=== PATIENT | female | born 1945 | race African-American/Black ===

== ENCOUNTER 2017-05-19 08:17 | Day surgery (SDC) | payer MEDICARE, SELFPAY ==
--- NOTE | 2017-05-10 16:05 | EKG12_ITS ---
Test Reason : PRE OP Blood Pressure : / mmHG Vent. Rate : 064 BPM Atrial Rate : 064 BPM P-R Int : 154 ms QRS Dur : 068 ms QT Int : 418 ms P-R-T Axes : 030 015 043 degrees QTc Int : 431 ms Normal sinus rhythm Poor R wave progression Confirmed by OLGA LANDRY, PENELOPE ([id number]), book or script editor CHAKA LYNN ([id number]) on 05/12/2017 1:09:05 PM Referred By: Gina Rae Confirmed By:PENELOPE ESPINOZA MD
[2017-05-10 16:51] LABS: Hematocrit 41.1 % (37-47); Hemoglobin 13.5 g/dl (12.0-15.0); Mean Corp Hgb Conc 32.8 g/gl (32-36); Mean Corpuscular Hgb 29.2 pg (27.0-32.0); Mean Corpuscular Volume 88.8 fL (81-99); Mean Platelet Vol. 9.9 fl (6.2-12.0); Platelet Count 262 K/mm3 (150-450); RBC Distribution Width CV 12.3 % (11.6-14.6); RBC Distribution Width SD 38.5 fl (35.1-43.9); Red Blood Count 4.63 M/mm3 (4.2-5.4); White Blood Count 5.5 K/mm3 (4.4-11.0)
[2017-05-10 16:55] LABS: Partial Thromboplast Time 30.9 Seconds (24.1-36.2); Prothrombin Time (Protime)PT. 12.9 SECONDS (11.7-14.9)
[2017-05-10 16:56] LABS: Scan Indicated on CBC? Y/N NO
[2017-05-10 17:23] LABS: Anion Gap 9 (5-15); BUN 15 mg/dL (7-18); BUN/Creat Ratio 18.9 RATIO (10-20); Calcium,Total 9.6 mg/dL (8.5-10.1); Chloride 103 mmol/L (98-107); EST Glomerular Filtration Rate 75 mL/min (>60); Est Glom Filt Rate - Afr Amer 91 mL/min (>60); Glucose 88 mg/dL (70-110); Potassium 4.2 mmol/L (3.5-5.1); Sodium Level 138 mmol/L (136-145)
[2017-05-10 17:41] LABS: Hemoglobin A1c 6.3 % (4.2-6.3)
[2017-05-12 15:26] LABS: HIV 1/0/2 SCREEN 4TH GEN Non Reactive (Non Reactive)
[2017-05-19] VITALS (13 sets, daily range): BP systolic 132–172; BP diastolic 59–81; PULSE 50–81; RESP 16–18; TEMP 36.4–37.1; O2SAT 95–100; BMI 26.2
--- NOTE | 2017-05-19 10:05 | MASS_PTH ---
PATIENT: AKILA DE LOS SANTOS LOC: [facility] U#:[id number] AGE/SX: 72/F ROOM: RE05/19/[address]: Dr. Gina Duff MD : 1945 BED: DIS: 05/20/2017 SPEC #: [id number] RECD: 05/20/17 10:35 STATUS: BRANDYN STACIE #: [id number] MEGHAN: 05/19/17 10:[address]: Gina Garcia DEPT: SURGICAL PATHOLOGY RECD BY: Trae Swann ENTERED: 05/20/17 12:55 SP TYPE: Mass OTHR DR: Dr. Ashely Grace, DO Tissues: A - Right ovary B - Left ovary Procedures: Surgery Specimen Level IV Surgery Specimen Level V HEADER OPERATION: Laparoscopic, bilateral salpingo-oophorectomy PRE-OP DIAGNOSIS: Lower abdominal pain, right ovarian cyst TISSUE SUBMITTED: A ? Right adnexal mass and ovary, B ? Left tube and ovary MICROSCOPIC DIAGNOSIS A. Right ovary and adnexal mass, oophorectomy: Serous cystadenoma. B. Left ovary and fallopian tube, salpingo-oophorectomy: Corpora albicantia. Fallopian tube with no significant pathologic change. AM:constantine 05/23/17 MICROSCOPIC DESCRIPTION Slides are reviewed. GROSS DESCRIPTION A - Received in fixative is one container labeled with the patient's name and designated right adnexal mass and ovary. The specimen consists of a single, glistening piper ovary measuring 3.5 x 2.5 x 1.3 cm. Attached to this is an irregular fragment of possible cystic structure measuring 4 x 2 cm. No distinct fallopian tube is identified. Tube Trailer Filler sections are submitted in four cassettes. B - Received in fixative is one container labeled with the patient's name and designated left ovary. The specimen consists of a piper-white ovary measuring 5 x 2 x 1 cm. Adjacent to this is a fallopian tube with normal appearing fimbriated end measuring 6 cm in length and 0.7 cm in average diameter. Serial sections of the ovary do not reveal mass lesions. Serial sections of the fallopian tube likewise does not reveal mass lesions. Tube Trailer Filler sections are submitted in two cassettes as follows: 1 ? ovary, 2???fallopian tube. / AM:constantine 05/20/17 TC:1 CPT: 66873, 10718
[2017-05-19] MEDS: Bupivacaine Mpf 0.5% 30 ML VIAL (13:19)
--- NOTE | 2017-05-19 13:27 | PCM.OPRPT ---
Problem List (1) Abdominal pain Status: Acute Qualifiers: Abdominal location: lower abdomen, unspecified Qualified Code(s): R10.30 - Lower abdominal pain, unspecified (2) Adnexal mass Status: Acute Comment: Right Report of Operation Date of Procedure: 05/19/17 Pre-Operative Diagnosis: Abdominal pain, right adnexal cyst Post-Operative Diagnosis: Abdominal pain, right adnexal cyst Surgery/Procedure Performed:: Laparoscopic adhesiolysis, bilateral salpingo-oophorectomy Description of Surgical Findings:: Dense adhesions of bilateral ovaries and right cystic mass presumably the tube silviculture professor: Isa Higuera Type of Anesthesia:: General, Local Anesthesiologist: Wandy Bridges Specimen's removed: 1. Left tube and ovary line 2. right adnexal mass and ovary Estimated Blood Loss (mL): 80 Fluids Replaced: 1500 mL Description of Procedure: Indications: Ms. Villafana is a 72-year-old postmenopausal para 3003 with history of abdominal pain found to have a complex right adnexal mass measuring 3-4 cm. Tumor marker study suggested low risk for malignancy. She was counseled regarding management options and agreed to proceed with laparoscopic bilateral salpingo-oophorectomy with removal of the mass. Risks, benefits, indications and alternatives were reviewed at length. Procedure: The patient was taken to the operating room and placed in the dorsal supine position and signed and performed. She was induced under general anesthesia, intubated. She was placed into dorsal lithotomy and the arms tucked at her sides. An examination under anesthesia was performed. Notably she is post hysterectomy. The perineum and abdomen were prepped and draped in sterile fashion. She is placed into high lithotomy and Mao catheter placed into the bladder. A sponge stick was placed into the vagina. She was repositioned low lithotomy. Attention was turned to the abdomen. An infraumbilical incision was made using a scalpel and Veress needle placed with successful hanging drop test and no aspirate. Abdominal entry pressure was 1 mmHg. The abdomen was insufflated to 15 mmHg. The needle was removed and a 5 mm port placed for laparoscopic guidance.. 3 additional incisions were made in the right and left lower quadrants as well as suprapubically and port placement followed. She was placed into Trendelenburg and the pelvis was inspected. It appeared that the bilateral ovaries were deeply so into the vaginal cuff and there was a 4 cm cystic mass at the midline suspicious for the right tube being hydrosalpinx. I created a bladder flap with dissection of the anterior peritoneum to release it from the vaginal cuff. Then I dissected of the cystic mass from the vaginal cuff bluntly and sharply with careful attention to prevent rupture. The mass was adhered densely to the right ovary. At this time I decided to ligate the right infundibulopelvic ligament to gain hemostasis with continued dissection. The right IP ligament was clamped coagulated and cut using the Enseal device. And with further careful dissection right salpingo-oophorectomy was performed. This required extensive period of time to complete the procedure safely. Attention was then turned to the left adnexa. Tube was normal-appearing. The left ovary was dissected bluntly and sharply from the cuff in part and when this was mobilized anteriorly I returned to the infundibulopelvic ligament at the left there was posterior ovarian adhesions to the cul-de-sac. The left infundibulopelvic ligament was serially clamped, coagulated, and cut using the Enseal device. This continued to the level of the mesovarium and the ovary was further dissected from the peritoneum of the posterior cul-de-sac. The suprapubic port was removed and the Endo Catch bag introduced into the abdomen. The right and left tubes and ovaries were placed into the Endo Catch bag and retrieved. Сергей was applied over the surgical sites for continued hemostasis. Abdomen was desufflated and the patient was given several deep breaths for further expulsion of gas. This fascia of the suprapubic incision was closed using 3-0 Vicryl. The skin at all sites approximately using 4-0 Monocryl by the DIRECTOR OF COMMUNITY EDUCATION or my supervision. Steri-Strips are placed over the incisions and followed by OpSite dressings. The sponge stick and catheter were removed from the vagina and bladder, respectively. The patient was placed into dorsal supine position, awakened, extubated and transferred to the recovery room without complication. She tolerated the procedure well. Sponge and needle counts were correct ?2. - Complications Dense adhesions - Admit VTE Documentation VTE Present on Admission: No VTE Mechan Device Prophylaxis: SCD's VTE Pharm Prophylaxis ordered?: No
--- NOTE | 2017-05-19 13:49 | PCM.DC ---
- Discharge Diagnoses Current Active Problems: Current Active and Chronic Problems Abdominal pain (Acute) Adnexal mass (Acute) Right You will use the following diet at home:: No restrictions Discharge Activity: Return to Normal Activity, May not drive while taking narcotic pain medications., May Shower May resume sexual activity in: 4 weeks Lifting Restrictions: 10 lb Call your doctor if your incision/area has: Continuous Slow Oozing, Sudden Increased Bleeding, Increased Pain/ Swelling, Increased Redness Call your doctor if you observe: Fever of 101 or Higher, Inability to urinate, Inability to have a bowel movement, Using more than one pad per hour, Shortness of breath, Chest pain, Calf discomfort, Uncontrolled pain Suture Line Care: Avoid Pulling/Pushing Remove Dressing in (days):: 1 Cleanse incision/area with: Soap & Water Instructions: ED Angioedema Additional Instructions: Take Prednisone taper. The Prescription was sent to [facility]. Please call the office with any questions. Allergies/Adverse Reactions: Allergies aspirin Allergy (Verified 05/16/17 14:52) Shortness of breath latex Allergy (Verified 05/16/17 14:52) Rash Penicillins Allergy (Verified 05/16/17 14:52) Rash Sulfa (Sulfonamide Antibiotics) Allergy (Verified 05/16/17 14:52) Hives Medications to take at Discharge Amlodipine Besylate [Norvasc] 5 mg PO DAILY 11/01/16 Ascorbic Acid [Vitamin C] 500 mg PO DAILY@0800 11/01/16 Calcium Phosphate Trib/Vit D3 [Citracal + D3 Gummies] 1 each PO BID 11/01/16 Estradiol [Estrace] 1 mg PO DAILY 11/01/16 Fish Oil/Dha/Epa [Fish Oil 1,200 mg Fish Oil] 2 each PO BID 11/01/16 Fluticasone/Vilanterol [Breo Ellipta 200-25 Mcg INH] 1 each IH DAILY 11/01/16 Gabapentin [Neurontin] 200 mg PO BID 11/01/16 Indapamide 1.25 mg PO DAILY 11/01/16 Lisinopril [Zestril] 20 mg PO DAILY 11/01/16 Montelukast [Singulair] 10 mg PO QHS 11/01/16 Multivit-Min/Iron/Folic/Lutein [Centrum Silver Women Tablet] 1 each PO DAILY 11/01/16 Potassium Chloride [K-Dur] 40 meq PO BID 11/01/16 Albuterol Inhaler [Ventolin Hfa] 1 - 2 puff INHALATION Q4H PRN PRN 05/16/17 Diclofenac Sodium [Voltaren] 100 gm TP PRN PRN 05/16/17 Gabapentin [Neurontin] 400 mg PO QHS 05/16/17 Docusate Sodium [Colace] 100 mg PO BID PRN PRN #60 cap 05/19/17 Hydrocodone/Acetaminophen [Hydrocodon-Acetaminophen 5-325] 1 - 2 tab PO TID PRN #30 tab 05/19/17 The following prescriptions were given: Docusate Sodium [Colace] 100 mg PO BID PRN PRN #60 cap PRN Reason: Constipation Hydrocodone/Acetaminophen [Hydrocodon-Acetaminophen 5-325] 1 - 2 tab PO TID PRN #30 tab PRN Reason: Pain Primary Care Physician: Ashely Grace DO [Primary Care Provider] - Please Follow Up With: Gina Rae MD When: 1 week
[2017-05-19] MEDS: HYDROcodone Bitartrate/Apap 5/325 Tablet PO ×2 (15:36→22:24)
--- NOTE | 2017-05-19 18:32 | PCM.PN.BLA ---
Progress Note PROGRESS NOTE Informed by RN that patient with small lip swelling at approximately 3:45pm. On my return to evaluate the patient at approximately 1745h I was notified the lip swelling had gotten worse. At the bedside patient has large swelling of her lower lip without any tongue or uvular swelling. + BS, soft, nontender, + distended belly with tympany. Incisional dressings c/d/i. No rash or urticaria present. AVSS, findings c/w angioedema without anaphylaxis and possible bowel wall involvement. Discussed my concerns with patient and relative. Patient denies dyspnea, foreign body sensation or lump in throat, ear congestion, pruritis, cough, sneezing. Etiology unclear. Allergies reviewed and no exposure to known allergens, Сергей placed intra-abdominally also latex free. Will admit for observation overnight. Benadryl atc and Prednisone ordered.
--- NOTE | 2017-05-19 19:16 | NURSING ---
Lower lip every large, denies sob, abd is large but soft.
[2017-05-19] MEDS: DiphenhydrAMINE 50 MG/ML Syringe 25 MG IV (20:36)
[2017-05-19] MEDS: Gabapentin 400 MG Capsule PO (22:00)
[2017-05-19] MEDS: Montelukast 10 MG Tablet PO (22:24)
[2017-05-20] MEDS: Dextrose 5%-Lactated Ringers 1,000 ML 100 ML IV (00:24)
[2017-05-20] MEDS: DiphenhydrAMINE 50 MG/ML Syringe 25 MG IV ×3 (02:59→11:42)
[2017-05-20 03:02] VITALS: BP 123/62; PULSE 65; RESP 16; TEMP 37.4; O2SAT 96
[2017-05-20] MEDS: HYDROcodone Bitartrate/Apap 5/325 Tablet PO (06:52)
[2017-05-20 06:59] LABS: Hematocrit 35.5 % (37-47); Hemoglobin 11.5 g/dl (12.0-15.0); Mean Corp Hgb Conc 32.4 g/gl (32-36); Mean Corpuscular Hgb 29.3 pg (27.0-32.0); Mean Corpuscular Volume 90.3 fL (81-99); Mean Platelet Vol. 10.5 fl (6.2-12.0); Platelet Count 177 K/mm3 (150-450); RBC Distribution Width CV 12.9 % (11.6-14.6); RBC Distribution Width SD 42.6 fl (35.1-43.9); Red Blood Count 3.93 M/mm3 (4.2-5.4); White Blood Count 8.2 K/mm3 (4.4-11.0)
[2017-05-20 07:10] LABS: Scan Indicated on CBC? Y/N NO
[2017-05-20 07:35] VITALS: BP 121/55; PULSE 61; RESP 14; TEMP 36.5; O2SAT 98
[2017-05-20 07:48] VITALS: O2SAT 97
[2017-05-20] MEDS: Indapamide 2.5 MG Tablet 1.25 MG PO (07:54)
[2017-05-20] MEDS: Gabapentin 100 MG Capsule 200 MG PO (07:54)
[2017-05-20] MEDS: Lisinopril 20 MG Tablet PO (07:54)
[2017-05-20] MEDS: amLODIPine 5 MG Tablet PO (07:54)
--- NOTE | 2017-05-20 08:35 | PCM.PN.OB ---
Patient Problems: Active and Suspected Problems Abdominal pain (Acute) Adnexal mass (Acute) Right Subjective: Relates cinthia-labial edema is improved. Denies chest pain, shortness of breath, cough, sore throat. Her pain is well controlled except worsened with movement. She denies nausea or vomiting and tolerates a regular diet. No flatus yet. Objective: AVSS - Physical Exam General: Alert, Oriented x3, Cooperative, No apparent distress HEENT: Atraumatic, - - significant lower lip edema improved from prior Oral: Moist Mucosa Lungs: Clear to auscultation, Normal air movement Cardiovascular: Regular rate, Regular Rhythm, Normal S1, Normal S2 Abdomen: Bowel Sounds Present, Soft, Non Tender, Distended Extremities: No edema, No Calf Tenderness Neurological: Neuro grossly intact Psych/Mental Status: Normal Affect, Appropriate, Alert and oriented to time, place, person, mood and affect Vital Signs Temp Pulse Resp BP Pulse Ox 97.7 F L 61 14 121/55 H 97 05/20/17 07:35 05/20/17 07:35 05/20/17 07:35 05/20/17 07:35 05/20/17 07:48 Oxygen Flow Rate 2 Oxygen Delivery Method Room Air Weight: 62.8 kg Body Mass Index (BMI) 26.2 Intake and Output for Last 24 Hours 05/18/17 05/19/17 05/20/17 23:59 23:59 23:59 Intake Total 4700 / 4700 1630 / 1630 Output Total 200 / 200 850 / 850 Balance 4500 / 4500 780 / 780 Laboratory Tests Past 24 Hrs 05/20/17 06:26 WBC 8.2 RBC 3.93 L Hgb 11.5 L Hct 35.5 L MCV 90.3 MCH 29.3 MCHC 32.4 RDW 12.9 RDW Differential 42.6 Plt Count 177 MPV 10.5 Assessment/Plan Active and Suspected Problems Abdominal pain (Acute) Adnexal mass (Acute) Right 72-year-old postop day 1 status post laparoscopic bilateral salpingo-oophorectomy with angioedema. -Orolabial angioedema overall improved. Continue steroids with taper. Will DC [id number] Benadryl. Abdominal exam suspicious for bowel wall component. Will obtain abdominal film prior to anticipated discharge to rule out other process. -Routine postop care -Anticipate discharge later today
--- NOTE | 2017-05-20 08:39 | PN.OBGYN_ITS ---
Patient Problems: Active and Suspected Problems Abdominal pain (Acute) Adnexal mass (Acute) Right Subjective: Relates cinthia-labial edema is improved. Denies chest pain, shortness of breath, cough, sore throat. Her pain is well controlled except worsened with movement. She denies nausea or vomiting and tolerates a regular diet. No flatus yet. Objective: AVSS - Physical Exam General: Alert, Oriented x3, Cooperative, No apparent distress HEENT: Atraumatic, - - significant lower lip edema improved from prior Oral: Moist Mucosa Lungs: Clear to auscultation, Normal air movement Cardiovascular: Regular rate, Regular Rhythm, Normal S1, Normal S2 Abdomen: Bowel Sounds Present, Soft, Non Tender, Distended Extremities: No edema, No Calf Tenderness Neurological: Neuro grossly intact Psych/Mental Status: Normal Affect, Appropriate, Alert and oriented to time, place, person, mood and affect Vital Signs Temp Pulse Resp BP Pulse Ox 97.7 F L 61 14 121/55 H 97 05/20/17 07:35 05/20/17 07:35 05/20/17 07:35 05/20/17 07:35 05/20/17 07:48 Oxygen Flow Rate 2 Oxygen Delivery Method Room Air Weight: 62.8 kg Body Mass Index (BMI) 26.2 Intake and Output for Last 24 Hours 05/18/17 05/19/17 05/20/17 23:59 23:59 23:59 Intake Total 4700 / 4700 1630 / 1630 Output Total 200 / 200 850 / 850 Balance 4500 / 4500 780 / 780 Laboratory Tests Past 24 Hrs 05/20/17 06:26 WBC 8.2 RBC 3.93 L Hgb 11.5 L Hct 35.5 L MCV 90.3 MCH 29.3 MCHC 32.4 RDW 12.9 RDW Differential 42.6 Plt Count 177 MPV 10.5 Assessment/Plan Active and Suspected Problems Abdominal pain (Acute) Adnexal mass (Acute) Right 72-year-old postop day 1 status post laparoscopic bilateral salpingo- oophorectomy with angioedema. -Orolabial angioedema overall improved. Continue steroids with taper. Will DC [id number] Benadryl. Abdominal exam suspicious for bowel wall component. Will obtain abdominal film prior to anticipated discharge to rule out other process. -Routine postop care -Anticipate discharge later today
--- NOTE | 2017-05-20 08:39 | RAD_ITS ---
STUDY: X-RAY - ABDOMEN/PELVIS REASON FOR EXAM: Female, 72 years old. Abdominal distention following recent surgery. TECHNIQUE: AP supine and upright views of the abdomen and pelvis. COMPARISON: None. FINDINGS: Mild increased linear markings at the lung bases worse on the left side suggestive of a postoperative linear atelectasis. Gas and fecal material is seen throughout the colon. There is no evidence of bowel obstruction. There is no demonstrated free abdominal air. The visualized liver, spleen and kidneys are grossly normal in size and morphology. There are calcified phleboliths in the pelvis. Dextroscoliosis of the lumbar spine with multilevel fusion. RAD/Abd Inc Decub and/or Erect IMPRESSION: Gas and fecal material is seen throughout the colon. Mild linear atelectasis at the lung bases. Electronically Signed: Chris Colmenares MD at 10:41 EST Tel [phone], Service support ,
--- NOTE | 2017-05-20 09:39 | CPS ---
patient does not want to try incentive or do breathing treatments
[2017-05-20] MEDS: 0.9% NaCl Peripheral Flush Adult/Peds IV (11:42)
--- NOTE | 2017-05-23 07:53 | PCM.DC.SUM ---
Discharge Date and Diagnosis Date of Admission: 05/19/17 Date of Discharge: 05/20/17 Hospital Course and Treatment Imaging Results: MR#: [id number] Acct: [id number] Name: AKILA DE LOS SANTOS Rep #: [id number] : 1945 F 72 From: Chris Colmenares MD PCP: Ashely Grace DO Status: [facility] Study: Abd Inc Decub and/or Erect Date of Exam: 05/20/17 Exam# [id number] Ordering Dr: Gina Rae MD STUDY: X-RAY - ABDOMEN/PELVIS REASON FOR EXAM: Female, 72 years old. Abdominal distention following recent surgery. TECHNIQUE: AP supine and upright views of the abdomen and pelvis. COMPARISON: None. FINDINGS: Mild increased linear markings at the lung bases worse on the left side suggestive of a postoperative linear atelectasis. Gas and fecal material is seen throughout the colon. There is no evidence of bowel obstruction. There is no demonstrated free abdominal air. The visualized liver, spleen and kidneys are grossly normal in size and morphology. There are calcified phleboliths in the pelvis. Dextroscoliosis of the lumbar spine with multilevel fusion. RAD/Abd Inc Decub and/or Erect IMPRESSION: Gas and fecal material is seen throughout the colon. Mild linear atelectasis at the lung bases. Electronically Signed: Chris Colmenares MD at 10:41 EST Tel [phone], Service support , Operations: - - Laparoscopic bilateral salpingo-oophorectomy Procedures: None Summary of Care Provided: The patient is a 72 year old female admitted for scheduled laparoscopic bilateral salpingo-oophorectomy for a complex right adnexal mass. Shortly following her procedure, she was noted to have lip swelling which progressively worsened and included abdominal distension consistent with angioedema without evidence of anaphylaxis or respiratory compromise. She was admitted and oral prednisone course started. Ms. De Los Santos was observed overnight with improvement of edema and symptoms. She was discharged to home on post-operative day #1. Discharge Diet: No Restrictions Discharge Activity: Return to Normal Activity, May not drive while taking narcotic pain medications., May Shower May resume sexual activity in: 4 weeks Call your doctor if your incision/area has: Continuous Slow Oozing, Sudden Increased Bleeding, Increased Pain/ Swelling, Increased Redness Call your doctor if you observe: Fever of 101 or Higher, Inability to urinate, Inability to have a bowel movement, Using more than one pad per hour, Shortness of breath, Chest pain, Calf discomfort, Uncontrolled pain Suture Line Care: Avoid Pulling/Pushing Remove Dressing in (days):: 1 Cleanse incision/area with: Soap & Water Home Medications: Medications to take at Discharge Amlodipine Besylate [Norvasc] 5 mg PO DAILY 11/01/16 Ascorbic Acid [Vitamin C] 500 mg PO DAILY@0800 11/01/16 Calcium Phosphate Trib/Vit D3 [Citracal + D3 Gummies] 1 each PO BID 11/01/16 Estradiol [Estrace] 1 mg PO DAILY 11/01/16 Fish Oil/Dha/Epa [Fish Oil 1,200 mg Fish Oil] 2 each PO BID 11/01/16 Fluticasone/Vilanterol [Breo Ellipta 200-25 Mcg INH] 1 each IH DAILY 11/01/16 Gabapentin [Neurontin] 200 mg PO BID 11/01/16 Indapamide 1.25 mg PO DAILY 11/01/16 Lisinopril [Zestril] 20 mg PO DAILY 11/01/16 Montelukast [Singulair] 10 mg PO QHS 11/01/16 Multivit-Min/Iron/Folic/Lutein [Centrum Silver Women Tablet] 1 each PO DAILY 11/01/16 Potassium Chloride [K-Dur] 40 meq PO BID 11/01/16 Albuterol Inhaler [Ventolin Hfa] 1 - 2 puff INHALATION Q4H PRN PRN 05/16/17 Diclofenac Sodium [Voltaren] 100 gm TP PRN PRN 05/16/17 Gabapentin [Neurontin] 400 mg PO QHS 05/16/17 Docusate Sodium [Colace] 100 mg PO BID PRN PRN #60 cap 05/19/17 Hydrocodone/Acetaminophen [Hydrocodon-Acetaminophen 5-325] 1 - 2 tab PO TID PRN #30 tab 05/19/17 Following Prescrptions Were Given to Patient: Docusate Sodium [Colace] 100 mg PO BID PRN PRN #60 cap PRN Reason: Constipation Hydrocodone/Acetaminophen [Hydrocodon-Acetaminophen 5-325] 1 - 2 tab PO TID PRN #30 tab PRN Reason: Pain Primary Care Physician: Ashely Grace DO [Primary Care Provider] - Please Follow Up With: Gina Rae MD When: 1 week Patient Instructions: ED Angioedema Meaningful Use Info Meaningful Use Diagnoses (Choose all that apply): None applicable
--- NOTE | 2017-05-23 08:01 | DS.PCM_ITS ---
Discharge Date and Diagnosis Date of Admission: 05/19/17 Date of Discharge: 05/20/17 Hospital Course and Treatment Imaging Results: MR#: [id number] Acct: [id number] Name: AKILA DE LOS SANTOS Rep #: [id number] : 1945 F [id number] From: Chris Colmenares MD PCP: Ashely Grace DO Status: [facility] Study: Abd Inc Decub and/or Erect Date of Exam: 05/20/17 Exam# [id number] Ordering Dr: Gina Rae MD STUDY: X-RAY - ABDOMEN/PELVIS REASON FOR EXAM: Female, 72 years old. Abdominal distention following recent surgery. TECHNIQUE: AP supine and upright views of the abdomen and pelvis. COMPARISON: None. FINDINGS: Mild increased linear markings at the lung bases worse on the left side suggestive of a postoperative linear atelectasis. Gas and fecal material is seen throughout the colon. There is no evidence of bowel obstruction. There is no demonstrated free abdominal air. The visualized liver, spleen and kidneys are grossly normal in size and morphology. There are calcified phleboliths in the pelvis. Dextroscoliosis of the lumbar spine with multilevel fusion. RAD/Abd Inc Decub and/or Erect IMPRESSION: Gas and fecal material is seen throughout the colon. Mild linear atelectasis at the lung bases. Electronically Signed: Chris Colmenares MD at 10:41 EST Tel [phone], Service support , Operations: - - Laparoscopic bilateral salpingo-oophorectomy Procedures: None Summary of Care Provided: The patient is a 72 year old female admitted for scheduled laparoscopic bilateral salpingo-oophorectomy for a complex right adnexal mass. Shortly following her procedure, she was noted to have lip swelling which progressively worsened and included abdominal distension consistent with angioedema without evidence of anaphylaxis or respiratory compromise. She was admitted and oral prednisone course started. Ms. De Los Santos was observed overnight with improvement of edema and symptoms. She was discharged to home on post-operative day #1. Discharge Diet: No Restrictions Discharge Activity: Return to Normal Activity, May not drive while taking narcotic pain medications., May Shower May resume sexual activity in: 4 weeks Call your doctor if your incision/area has: Continuous Slow Oozing, Sudden Increased Bleeding, Increased Pain/ Swelling, Increased Redness Call your doctor if you observe: Fever of 101 or Higher, Inability to urinate, Inability to have a bowel movement, Using more than one pad per hour, Shortness of breath, Chest pain, Calf discomfort, Uncontrolled pain Suture Line Care: Avoid Pulling/Pushing Remove Dressing in (days):: 1 Cleanse incision/area with: Soap & Water Home Medications: Medications to take at Discharge Amlodipine Besylate [Norvasc] 5 mg PO DAILY 11/01/16 Ascorbic Acid [Vitamin C] 500 mg PO DAILY@0800 11/01/16 Calcium Phosphate Trib/Vit D3 [Citracal + D3 Gummies] 1 each PO BID 11/01/16 Estradiol [Estrace] 1 mg PO DAILY 11/01/16 Fish Oil/Dha/Epa [Fish Oil 1,200 mg Fish Oil] 2 each PO BID 11/01/16 Fluticasone/Vilanterol [Breo Ellipta 200-25 Mcg INH] 1 each IH DAILY 11/01/16 Gabapentin [Neurontin] 200 mg PO BID 11/01/16 Indapamide 1.25 mg PO DAILY 11/01/16 Lisinopril [Zestril] 20 mg PO DAILY 11/01/16 Montelukast [Singulair] 10 mg PO QHS 11/01/16 Multivit-Min/Iron/Folic/Lutein [Centrum Silver Women Tablet] 1 each PO DAILY 02/08 Potassium Chloride [K-Dur] 40 meq PO BID 11/01/16 Albuterol Inhaler [Ventolin Hfa] 1 - 2 puff INHALATION Q4H PRN PRN 05/16/17 Diclofenac Sodium [Voltaren] 100 gm TP PRN PRN 05/16/17 Gabapentin [Neurontin] 400 mg PO QHS 05/16/17 Docusate Sodium [Colace] 100 mg PO BID PRN PRN #60 cap 05/19/17 Hydrocodone/Acetaminophen [Hydrocodon-Acetaminophen 5-325] 1 - 2 tab PO TID PRN #30 tab 05/19/17 Following Prescrptions Were Given to Patient: Docusate Sodium [Colace] 100 mg PO BID PRN PRN #60 cap PRN Reason: Constipation Hydrocodone/Acetaminophen [Hydrocodon-Acetaminophen 5-325] 1 - 2 tab PO TID PRN #30 tab PRN Reason: Pain Primary Care Physician: Ashely Grace DO [Primary Care Provider] - Please Follow Up With: Gina Rae MD When: 1 week Patient Instructions: ED Angioedema Meaningful Use Info Meaningful Use Diagnoses (Choose all that apply): None applicable
--- NOTE | 2017-06-02 09:11 | PCM.PN.BLA ---
Progress Note Call to Dr. 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 Grossly, the cyst was adjacent to the distal tube with no connection to the ovary. I reviewed with her that no ovarian procedure was performed and no ovarian tissue resected. She notes that serous cystadenoma may arise in the tube however ovarian tissue was present on this pathologic specimen.
== END 2017-05-20 12:36 | disposition home or self-care (01) ==
LOC: SDC 08:17 → AC 08:18 → MS3 18:39
PROVIDERS: Family Provider Family Medicine; PCP Family Medicine; Visit Provider Obstetrics & Gynecology
PROC: (CPT 58660; principal; 2017-05-19 09:50)
DX: D35.01 Benign neoplasm of right adrenal gland (principal); N83.12 Corpus luteum cyst of left ovary; N73.6 Female pelvic peritoneal adhesions (postinfective); T78.3XXA Angioneurotic edema, initial encounter; R14.0 Abdominal distension (gaseous); R10.30 Lower abdominal pain, unspecified; I10 Essential (primary) hypertension; J45.909 Unspecified asthma, uncomplicated; E11.9 Type 2 diabetes mellitus without complications; Z87.891 Personal history of nicotine dependence; Z79.899 Other long term (current) drug therapy; Z90.710 Acquired absence of both cervix and uterus; Z86.718 Personal history of other venous thrombosis and embolism; Z86.73 Personal history of transient ischemic attack (TIA), and cerebral infarction without residual deficits
CPT/HCPCS: 00840; 58660; 58661; 36415; 74019; 80048; 83036; 85027; 85610; 85730; 86703; 86850; 86900; 88305; 88307; 97802; J7120; A4216; J2405

== ENCOUNTER → 2017-11-28 16:18 | Outpatient (CLI) | payer MEDICARE, SELFPAY | PROVIDERS: Family Provider Family Medicine; PCP Family Medicine; Visit Provider Family Medicine | DX: N39.0 Urinary tract infection, site not specified (principal) | CPT/HCPCS: 87077; 87086; 87088; 87186 ==

== ENCOUNTER → 2018-04-05 14:31 | Outpatient (CLI) | payer MEDICARE, SELFPAY ==
--- NOTE | 2018-04-05 14:35 | BI_ITS ---
MAMMOGRAPHY - BILATERAL SCREENING REASON FOR EXAM: Female, 73 years old. Routine annual screening examination. PERTINENT HISTORY: Non-contributory. TECHNIQUE: Digital bilateral breast logan (3D mammographic acquisition) in the CC and MLO projections. 2-D mediolateral oblique (MLO) and craniocaudad (CC) views of both breasts were obtained. CAD: Full Field Digital Mammography with Computer Added Detection was performed. COMPARISON: Comparison is made with prior examination dated December 05, 2014 and October 30, 2013. FINDINGS: Breast Composition: There are scattered areas of fibroglandular density. There are no dominant masses or suspicious calcifications. Stable benign-appearing bilateral axillary lymph nodes. No other significant abnormalities are identified. There has been no significant change since the prior study. BI/SCREENING MAMM (CAD), BILAT IMPRESSION: Stable bilateral screening mammogram. Yearly follow-up mammogram recommended. (A) ASSESSMENT CATEGORY: BIRADS Category 2: Benign. A letter regarding these results will be sent to the patient by the facility within 30 days. Approximately 10% of breast cancers are not detected by mammography. A normal mammogram should not delay biopsy of a clinically suspicious abnormality. [id number] Electronically Signed: Chris Colmenares MD at 8:29 EST Tel [phone], Service support ,
--- OUTSIDE RECORDS SUMMARY | 2018-05-22 19:35 | XMS RPT_ITS ---
:1945 Author Organization OHIP Care Team Providers Name Role Phone Lesly Ashely Attending Unavailable Malys, Ashely Primary Care Unavailable Richard Beal Attending Unavailable Malys, Ashely Primary Care Unavailable Malys, Ashely Attending Unavailable Malys, Ashely Referring Unavailable Malys, Ashely Primary Care Unavailable Gina Rae Attending Unavailable Gina Rae Referring Unavailable Malys, Ashely Primary Care Unavailable PROBLEMS PROBLEMS DATE TYPE CONDITION / CODE ATTENDING STATUS SOURCE 04/12/2018 Unknown E11.9 - Type 2 Malys, Ashely Active [facility] diabetes mellitus Community without Hospital complications / Repository E11.9(ICD-10) 04/12/2018 Unknown I10 - Essential Malys, Ashely Active [facility] (primary) Community hypertension / Hospital I10(ICD-10) Repository 04/12/2018 Unknown E78.5 - Ashely Grace Active [facility] Hyperlipidemia, Community unspecified / Hospital E78.5(ICD-10) Repository 04/12/2018 Unknown Z51.81 - Encounter Ashely Grace Active [facility] for therapeutic Community drug level Hospital monitoring / Repository Z51.81(ICD-10) 11/28/2017 Unknown R35.0 - Frequency Richard Beal Active [place] of micturition / Community R35.0(ICD-10) Hospital Repository 11/28/2017 Unknown N39.0 - Urinary Richard Beal Active [place] tract infection, Community site not specified Hospital / N39.0(ICD-10) Repository 05/20/2017 Unknown N94.9 - Unspecified Nielsen-Omega, Active [facility] condition [facility] Community associated with Hospital female genital Repository organs and menstrual cycle / N94.9(ICD-10) PROCEDURES PROCEDURES No Procedure Records FoundRESULTS RESULTS CBC W/DIFF, AUTOMATED Collected: 04/12/2018 Status: F Source: [place] 9:43 AM [facility] REPOSITORY TYPE CODE TESTS RESULT OUT OF RANGE REFERENCE UNITS LAB L100.1000 4.4-11.0 K/mm3 Normal WBC 6.1 LAB L100.1200 4.2-5.4 M/mm3 Normal RBC 4.64 LAB L100.1300 12.0-15.0 g/dl Normal HGB 13.6 LAB L100.1400 37-47 % Normal HCT 42.6 LAB L100.1500 81-99 fL Normal MCV 91.8 LAB L100.1600 27.0-32.0 pg Normal MCH 29.3 LAB L100.1700 32-36 g/gl Low MCHC 31.9 LAB L100.1810 11.6-14.6 % Normal RDW CV 11.9 LAB L100.1820 35.1-43.9 fl Normal RDW SD 40.0 LAB L100.1900 150-450 K/mm3 Normal PLT 187 LAB L100.2000 6.2-12.0 fl Normal MPV 10.5 LAB L100.2100 47-70 % Normal NEUT% 61.6 LAB L100.2200 19-41 % Normal LY% 26.8 LAB L100.2300 0-10 % Normal MONO% 7.8 LAB L100.2400 0-5 % Normal EO% 3.3 LAB L100.2500 0-1 % Normal BASO% 0.3 LAB L100.2550 0.0-0.9 % Normal IM GRAN % 0.200 Result Comment: IG% - Immature Granulocytes (promyelocytes, myelocytes and metamyelocytes) > 1% indicates that a LEFT SHIFT is Present. LAB L100.2620 2.0-7.7 X10 3/uL Normal Absolute Neut 3.8 LAB L100.2720 0.83-4.51 X10 3/ul Normal Absolute Lymph 1.64 Performed By: #### L100.0100 #### [facility] [address] [place], [place], [address] HEMOGLOBIN A1C Collected: 04/12/2018 Status: F Source: [place] 9:43 AM [facility] TYPE CODE TESTS RESULT OUT OF RANGE REFERENCE UNITS LAB L501.9985 4.2-6.3 % High HGB A1C 6.4 Performed By: #### L501.9985 #### [facility] [address] [place], [place], [address] COMPREHENSIVE METABOLIC Collected: 04/12/2018 Status: F Source: [facility] 9:43 AM [facility] TYPE CODE TESTS RESULT OUT OF RANGE REFERENCE UNITS LAB L501.0100 74-106 mg/dL Normal GLU 104 Result Comment: Fasting Glucose result from 100 to 125 mg/dL suggests IMPAIRED HOMEOSTASIS per A.D.A. criteria. Please note revised GLUCOSE reference range effective 2017. LAB L501.1000 7-18 mg/dL Normal BUN 16 LAB L501.1100 0.55-1.02 mg/dL Normal CREAT,SERUM 0.92 Result Comment: The validity of the calculated GFR AND GFRAA in patients over 70 years has not been determined. Clinical correlation is essential. LAB L501.1110 >60 mL/min Normal EST GFR 64 Result Comment: Non- GFR Calc LAB L501.1115 >60 mL/min Normal EST GFR - AA 77 Result Comment: GFR Calc LAB L501.1300 10-20 RATIO Normal BUN/CRE 17.4 LAB L501.1500 6.4-8.2 g/dL T Normal PROT 7.1 LAB L501.1800 3.2-5.0 g/dL Normal ALB 3.6 LAB L501.1950 2.2-4.2 g/dL Normal GLOB 3.5 LAB L501.2000 0.9-2.4 RATIO Normal A/G 1.0 LAB L501.2200 8.5-10.1 mg/dL CA Normal 8.8 LAB L501.4100 15-37 U/L Normal AST 19 LAB L501.4305 45-117 U/L Normal ALK P 60 LAB L501.4405 13-56 U/L Normal ALT 25 LAB L501.4600 0.20-1.00 mg/dL T Normal BILI 0.60 LAB L501.5300 136-145 mmol/L NA Normal 142 LAB L501.5600 3.5-5.1 mmol/L K Normal 4.0 LAB L501.5900 98-107 mmol/L CL Normal 105 LAB L501.6100 21.0-32.0 mmol/L Normal CO2 28.0 LAB L501.6200 5-15 Normal GAP 9 Performed By: #### L500.4050, L500.4100 #### [facility] [address] [place], [place], [address] LIPID PROFILE Collected: 04/12/2018 Status: F Source: [place] 9:43 AM [facility] TYPE CODE TESTS RESULT OUT OF RANGE REFERENCE UNITS LAB L501.4900 200 mg/dL Normal CHOL 187 Result Comment: <200 mg/dL Desirable 200-240 mg/dL Borderline >240 mg/dL High Risk LAB L501.5000 mg/dL Normal TRIG 110 Result Comment: The drugs N-Acetylcysteine and Metamizole may falsely depress this assay. Serum Triglycerides Reference Interval Normal <150 mg/dL Borderline high 150 - 199 mg/dL High 200 - 499 mg/dL Very High > or = 500 mg/dL LAB L501.6400 mg/dL Normal HDL 75 Result Comment: The drugs N-Acetylcysteine and Metamizole may falsely depress this assay. Reference Range HDL <40 mg/dL Low HDL Cholesterol HDL >or= 60 mg/dL High HDL Cholesterol LAB L501.6500 0-130 mg/dL Normal LDL 90 LAB L501.6600 5-40 mg/dL Normal VLDL 22 Performed By: #### L500.4050, L500.4100 #### [facility] [address] [place], [address] MICROALB:CREAT Collected: 04/12/2018 Status: F Source: [place] RATIO,RANDOM UR 9:43 AM [facility] TYPE CODE TESTS RESULT OUT OF RANGE REFERENCE UNITS LAB L501.1200 NO RANGE EST. mg/dL Normal UR CREAT 299.00 LAB L502.0500 NO RANGE EST. mg/L Normal 86.2 MICROALBUMIN ,UR LAB L502.0600 <30 mg/g CRE mg/g CRE Normal 28.8 MALB:CREAT Performed By: #### L502.0250 #### [facility] [address] [place], [address] SCREENING MAMM (CAD), Observed: 04/05/2018 Status: F Source: [place] BILAT 2:35 PM [facility] Imaging Services [address] [place] [address] SCREENING MAMM (CAD), BILAT MR#: [id number] Acct: [id number] Name: AKILA DE LOS SANTOS Rep #: [id number] : 1945 F 73 From: Chris Colmenares MD PCP: Ashely Grace DO Status: [facility] CLI Study: SCREENING MAMM (CAD), BILAT Date of Exam: 04/05/18 Exam# [id number] Ordering Dr: Ashely Grace DO MAMMOGRAPHY - BILATERAL SCREENING REASON FOR EXAM: Female, 73 years old. Routine annual screening examination. PERTINENT HISTORY: Non-contributory. TECHNIQUE: Digital bilateral breast logan (3D mammographic acquisition) in the CC and MLO projections. 2-D mediolateral oblique (MLO) and craniocaudad (CC) views of both breasts were obtained. CAD: Full Field Digital Mammography with Computer Added Detection was performed. COMPARISON: Comparison is made with prior examination dated December 05, 2014 and October 30, 2013. FINDINGS: Breast Composition: There are scattered areas of fibroglandular density. There are no dominant masses or suspicious calcifications. Stable benign-appearing bilateral axillary lymph nodes. No other significant abnormalities are identified. There has been no significant change since the prior study. BI/SCREENING MAMM (CAD), BILAT IMPRESSION: Stable bilateral screening mammogram. Yearly follow-up mammogram recommended. (A) ASSESSMENT CATEGORY: BIRADS Category 2: Benign. A letter regarding these results will be sent to the patient by the facility within 30 days. Approximately 10% of breast cancers are not detected by mammography. A normal mammogram should not delay biopsy of a clinically suspicious abnormality. [id number] Electronically Signed: Chris Colmenares MD at 8:29 EST Tel [phone], Service support , CC: Ashely Grace DO Teaching Aide: Signed Observed: 11/28/2017 Status: F Source: [place] CULTURE, URINE 4:19 PM [facility] Urine Culture ORGANISM 1: Escherichia coli [place] Count >100,000 Escherichia coli: REACTION Amoxacillin/Clavulanic Acid $ 16 I Ampicillin $ >=32 R Ampicillin/Sulbactam $ >=32 R Cefazolin $ <=4 S Cefepime $ <=1 S Ceftriaxone $ <=1 S Ciprofloxacin $ 1 S ESBL - Ertapenim $$$ <=0.5 S Gentamicin $ <=1 S Imipenem *NF <=0.25 S Levofloxacin $ 1 S Nitrofurantoin $ <=16 S Piperacillin/Tazobactam $$ <=4 S Tobramycin $ <=1 S Trimethoprim/Sulfametho $ <=20 S (NF) indicates non-formulary drug at [facility]. Approval by Infectious Disease Specialist required before non-formulary drugs may be ordered and/or dispensed. Performed By: #### M100.0650 #### [facility] [address] [place], [address] DISCHARGE SUMMARY Observed: 05/23/2017 Status: F Source: [place] 8:01 AM [facility] Medical Records Department [address] [address] Discharge Summary 05/23/17 0753 MR#: [id number] Acct: [id number] Name: AKILA DE LOS SANTOS Rep #: [id number] : 1945 72 From: Gina Duff MD PCP: Ashely Grace DO Status: [facility] [place] [facility] Discharge Date and Diagnosis Date of Admission: 05/19/17 Date of Discharge: 05/20/17 Hospital Course and Treatment Imaging Results: MR#: [id number] Acct: [id number] Name: AKILA DE LOS SANTOS Rep #: [id number] : 1945 F 72 From: Chris Colmenares MD PCP: Ashely Grace DO Status: [facility] Study: Abd Inc Decub and/or Erect Date of Exam: 05/20/17 Exam# [id number] Ordering Dr: Gina Avelar MD STUDY: X-RAY - ABDOMEN/PELVIS REASON FOR EXAM: Female, 72 years old. Abdominal distention following recent surgery. TECHNIQUE: AP supine and upright views of the abdomen and pelvis. COMPARISON: None. FINDINGS: Mild increased linear markings at the lung bases worse on the left side suggestive of a postoperative linear atelectasis. Gas and fecal material is seen throughout the colon. There is no evidence of bowel obstruction. There is no demonstrated free abdominal air. The visualized liver, spleen and kidneys are grossly normal in size and morphology. There are calcified phleboliths in the pelvis. Dextroscoliosis of the lumbar spine with multilevel fusion. RAD/Abd Inc Decub and/or Erect IMPRESSION: Gas and fecal material is seen throughout the colon. Mild linear atelectasis at the lung bases. Electronically Signed: Chris Colmenares MD at 10:41 EST Tel [phone], Service support , Operations: - - Laparoscopic bilateral salpingo-oophorectomy Procedures: None Summary of Care Provided: The patient is a 72 year old female admitted for scheduled laparoscopic bilateral salpingo-oophorectomy for a complex right adnexal mass. Shortly following her procedure, she was noted to have lip swelling which progressively worsened and included abdominal distension consistent with angioedema without evidence of anaphylaxis or respiratory compromise. She was admitted and oral prednisone course started. Ms. De Los Santos was observed overnight with improvement of edema and symptoms. She was discharged to home on post- operative day #1. Discharge Diet: No Restrictions Discharge Activity: Return to Normal Activity, May not drive while taking narcotic pain medications., May Shower May resume sexual activity in: 4 weeks Call your doctor if your incision/area has: Continuous Slow Oozing, Sudden Increased Bleeding, Increased Pain/ Swelling, Increased Redness Call your doctor if you observe: Fever of 101 or Higher, Inability to urinate, Inability to have a bowel movement, Using more than one pad per hour, Shortness of breath, Chest pain, Calf discomfort, Uncontrolled pain Suture Line Care: Avoid Pulling/Pushing Remove Dressing in (days):: 1 Cleanse incision/area with: Soap AND Water Home Medications: Medications to take at Discharge Amlodipine Besylate [Norvasc] 5 mg PO DAILY 11/01/16 Ascorbic Acid [Vitamin C] 500 mg PO DAILY@0800 11/01/16 Calcium Phosphate Trib/Vit D3 [Citracal + D3 Gummies] 1 each PO BID 11/01/16 Estradiol [Estrace] 1 mg PO DAILY 11/01/16 Fish Oil/Dha/Epa [Fish Oil 1,200 mg Fish Oil] 2 each PO BID 11/01/16 Fluticasone/Vilanterol [Breo Ellipta 200-25 Mcg INH] 1 each IH DAILY 11/01/16 Gabapentin [Neurontin] 200 mg PO BID 11/01/16 Indapamide 1.25 mg PO DAILY 11/01/16 Lisinopril [Zestril] 20 mg PO DAILY 11/01/16 Montelukast [Singulair] 10 mg PO QHS 11/01/16 Multivit-Min/Iron/Folic/Lutein [Centrum Silver Women Tablet] 1 each PO DAILY 11/01/16 Potassium Chloride [K-Dur] 40 meq PO BID 11/01/16 Albuterol Inhaler [Ventolin Hfa] 1 - 2 puff INHALATION Q4H PRN PRN 05/16/17 Diclofenac Sodium [Voltaren] 100 gm TP PRN PRN 05/16/17 Gabapentin [Neurontin] 400 mg PO QHS 05/16/17 Docusate Sodium [Colace] 100 mg PO BID PRN PRN #60 cap 05/19/17 Hydrocodone/Acetaminophen [Hydrocodon-Acetaminophen 5-325] 1 - 2 tab PO TID PRN #30 tab 05/19/17 Following Prescrptions Were Given to Patient: Docusate Sodium [Colace] 100 mg PO BID PRN PRN #60 cap PRN Reason: Constipation Hydrocodone/Acetaminophen [Hydrocodon-Acetaminophen 5-325] 1 - 2 tab PO TID PRN #30 tab PRN Reason: Pain Primary Care Physician: Ashely Grace DO [Primary Care Provider] - Please Follow Up With: Gina Rae MD When: 1 week Patient Instructions: ED Angioedema Meaningful Use Info Meaningful Use Diagnoses (Choose all that apply): None applicable 05/23/17 0801 <Electronically signed by Gina Rae MD> Date Gina Rae MD Cosigner Signature (if applicable): Date CC: Ashely Grace DO; Gina Rae MD Signed DISCHARGE INSTRUCTION Observed: 05/20/2017 Status: F Source: [place] 11:49 AM [facility] Medical Records Department [address] [place] [address] Instructions for Home/Discharge Instructions 05/19/17 1349 MR#: [id number] Acct: [id number] Name: AKILA DE LOS SANTOS Rep #: [id number] : 1945 72 From: Gina Duff MD PCP: Ashely Grace DO Status: REG SDC - Discharge Diagnoses Current Active Problems: Current Active and Chronic Problems Abdominal pain (Acute) Adnexal mass (Acute) Right You will use the following diet at home:: No restrictions Discharge Activity: Return to Normal Activity, May not drive while taking narcotic pain medications., May Shower May resume sexual activity in: 4 weeks Lifting Restrictions: 10 lb Call your doctor if your incision/area has: Continuous Slow Oozing, Sudden Increased Bleeding, Increased Pain/ Swelling, Increased Redness Call your doctor if you observe: Fever of 101 or Higher, Inability to urinate, Inability to have a bowel movement, Using more than one pad per hour, Shortness of breath, Chest pain, Calf discomfort, Uncontrolled pain Suture Line Care: Avoid Pulling/Pushing Remove Dressing in (days):: 1 Cleanse incision/area with: Soap AND Water Instructions: ED Angioedema Additional Instructions: Take Prednisone taper. The Prescription was sent to [facility]. Please call the office with any questions. Allergies/Adverse Reactions: Allergies aspirin Allergy (Verified 05/16/17 14:52) Shortness of breath latex Allergy (Verified 05/16/17 14:52) Rash Penicillins Allergy (Verified 05/16/17 14:52) Rash Sulfa (Sulfonamide Antibiotics) Allergy (Verified 05/16/17 14:52) Hives Medications to take at Discharge Amlodipine Besylate [Norvasc] 5 mg PO DAILY 11/01/16 Ascorbic Acid [Vitamin C] 500 mg PO DAILY@0800 11/01/16 Calcium Phosphate Trib/Vit D3 [Citracal + D3 Gummies] 1 each PO BID 11/01/16 Estradiol [Estrace] 1 mg PO DAILY 11/01/16 Fish Oil/Dha/Epa [Fish Oil 1,200 mg Fish Oil] 2 each PO BID 11/01/16 Fluticasone/Vilanterol [Breo Ellipta 200-25 Mcg INH] 1 each IH DAILY 11/01/16 Gabapentin [Neurontin] 200 mg PO BID 11/01/16 Indapamide 1.25 mg PO DAILY 11/01/16 Lisinopril [Zestril] 20 mg PO DAILY 11/01/16 Montelukast [Singulair] 10 mg PO QHS 11/01/16 Multivit-Min/Iron/Folic/Lutein [Centrum Silver Women Tablet] 1 each PO DAILY 11/01/16 Potassium Chloride [K-Dur] 40 meq PO BID 11/01/16 Albuterol Inhaler [Ventolin Hfa] 1 - 2 puff INHALATION Q4H PRN PRN 05/16/17 Diclofenac Sodium [Voltaren] 100 gm TP PRN PRN 05/16/17 Gabapentin [Neurontin] 400 mg PO QHS 05/16/17 Docusate Sodium [Colace] 100 mg PO BID PRN PRN #60 cap 05/19/17 Hydrocodone/Acetaminophen [Hydrocodon-Acetaminophen 5-325] 1 - 2 tab PO TID PRN #30 tab 05/19/17 The following prescriptions were given: Docusate Sodium [Colace] 100 mg PO BID PRN PRN #60 cap PRN Reason: Constipation Hydrocodone/Acetaminophen [Hydrocodon-Acetaminophen 5-325] 1 - 2 tab PO TID PRN #30 tab PRN Reason: Pain Primary Care Physician: Ashely Grace DO [Primary Care Provider] - Please Follow Up With: Gina Rae MD When: 1 week 05/20/17 1149 <Electronically signed by Gina Rae MD> Date Gina Rae MD CC: Ashely Grace DO ABD INC DECUB Observed: 05/20/2017 Status: F Source: [place] AND/OR ERECT 8:40 AM [facility] Imaging Services [address] [place] [address] Abd Inc Decub and/or Erect MR#: [id number] Acct: [id number] Name: AKILA DE LOS SANTOS Rep #: [id number] : 1945 F 72 From: Chris Colmenares MD PCP: Ashely Grace DO Status: [facility] Study: Abd Inc Decub and/or Erect Date of Exam: 05/20/17 Exam# [id number] Ordering Dr: Gina Avelar MD STUDY: X-RAY - ABDOMEN/PELVIS REASON FOR EXAM: Female, 72 years old. Abdominal distention following recent surgery. TECHNIQUE: AP supine and upright views of the abdomen and pelvis. COMPARISON: None. FINDINGS: Mild increased linear markings at the lung bases worse on the left side suggestive of a postoperative linear atelectasis. Gas and fecal material is seen throughout the colon. There is no evidence of bowel obstruction. There is no demonstrated free abdominal air. The visualized liver, spleen and kidneys are grossly normal in size and morphology. There are calcified phleboliths in the pelvis. Dextroscoliosis of the lumbar spine with multilevel fusion. RAD/Abd Inc Decub and/or Erect IMPRESSION: Gas and fecal material is seen throughout the colon. Mild linear atelectasis at the lung bases. Electronically Signed: Chris Colmenares MD at 10:41 EST Tel [phone], Service support , CC: Ashely Grace DO; Gina Rae MD Teaching Aide: Signed CBC-COMPLETE BLOOD CNT Collected: 05/20/2017 Status: F Source: [place] NO DIFF 6:26 AM [facility] TYPE CODE TESTS RESULT OUT OF RANGE REFERENCE UNITS LAB L100.1000 4.4-11.0 K/mm3 Normal WBC 8.2 LAB L100.1200 4.2-5.4 M/mm3 Low RBC 3.93 LAB L100.1300 12.0-15.0 g/dl Low HGB 11.5 LAB L100.1400 37-47 % Low HCT 35.5 LAB L100.1500 81-99 fL Normal MCV 90.3 LAB L100.1600 27.0-32.0 pg Normal MCH 29.3 LAB L100.1700 32-36 g/gl Normal MCHC 32.4 LAB L100.1810 11.6-14.6 % Normal RDW CV 12.9 LAB L100.1820 35.1-43.9 fl Normal RDW SD 42.6 LAB L100.1900 150-450 K/mm3 Normal PLT 177 LAB L100.2000 6.2-12.0 fl Normal MPV 10.5 Performed By: #### L100.0500 #### [facility] [address] [facility] [place], [address] OPERATIVE REPORT Observed: 05/19/2017 Status: F Source: [place] 1:44 PM [facility] Medical Records Department [address] [place] [address] Operative Report 05/19/17 1327 MR#: [id number] Acct: [id number] Name: AKILA DE LOS SANTOS Rep #: [id number] : 1945 72 From: Gina Duff MD PCP: Ashely Grace DO Status: REG [facility] [place] Location: [place] [address] Problem List (1) Abdominal pain Status: Acute Qualifiers: Abdominal location: lower abdomen, unspecified Qualified Code(s): R10.30 - Lower abdominal pain, unspecified (2) Adnexal mass Status: Acute Comment: Right Report of Operation Date of Procedure: 05/19/17 Pre-Operative Diagnosis: Abdominal pain, right adnexal cyst Post-Operative Diagnosis: Abdominal pain, right adnexal cyst Surgery/Procedure Performed:: Laparoscopic adhesiolysis, bilateral salpingo-oophorectomy Description of Surgical Findings:: Dense adhesions of bilateral ovaries and right cystic mass presumably the tube [place] leverman: Isa Higuera Type of Anesthesia:: General, Local Anesthesiologist: Wandy Bridges Specimen's removed: 1. Left tube and ovary line 2. right adnexal mass and ovary Estimated Blood Loss (mL): 80 Fluids Replaced: 1500 mL Description of Procedure: Indications: Ms. De Los Santos is a 72-year-old postmenopausal para 3003 with history of abdominal pain found to have a complex right adnexal mass measuring 3-4 cm. Tumor marker study suggested low risk for malignancy. She was counseled regarding management options and agreed to proceed with laparoscopic bilateral salpingo-oophorectomy with removal of the mass. Risks, benefits, indications and alternatives were reviewed at length. Procedure: The patient was taken to the operating room and placed in the dorsal supine position and signed and performed. She was induced under general anesthesia, intubated. She was placed into dorsal lithotomy and the arms tucked at her sides. An examination under anesthesia was performed. Notably she is post hysterectomy. The perineum and abdomen were prepped and draped in sterile fashion. She is placed into high lithotomy and Mao catheter placed into the bladder. A sponge stick was placed into the vagina. She was repositioned low lithotomy. Attention was turned to the abdomen. An infraumbilical incision was made using a scalpel and Veress needle placed with successful hanging drop test and no aspirate. Abdominal entry pressure was 1 mmHg. The abdomen was insufflated to 15 mmHg. The needle was removed and a 5 mm port placed for laparoscopic guidance.. 3 additional incisions were made in the right and left lower quadrants as well as suprapubically and port placement followed. She was placed into Trendelenburg and the pelvis was inspected. It appeared that the bilateral ovaries were deeply so into the vaginal cuff and there was a 4 cm cystic mass at the midline suspicious for the right tube being hydrosalpinx. I created a bladder flap with dissection of the anterior peritoneum to release it from the vaginal cuff. Then I dissected of the cystic mass from the vaginal cuff bluntly and sharply with careful attention to prevent rupture. The mass was adhered densely to the right ovary. At this time I decided to ligate the right infundibulopelvic ligament to gain hemostasis with continued dissection. The right IP ligament was clamped coagulated and cut using the Enseal device. And with further careful dissection right salpingo-oophorectomy was performed. This required extensive period of time to complete the procedure safely. Attention was then turned to the left adnexa. Tube was normal-appearing. The left ovary was dissected bluntly and sharply from the cuff in part and when this was mobilized anteriorly I returned to the infundibulopelvic ligament at the left there was posterior ovarian adhesions to the cul-de-sac. The left infundibulopelvic ligament was serially clamped, coagulated, and cut using the Enseal device. This continued to the level of the mesovarium and the ovary was further dissected from the peritoneum of the posterior cul-de-sac. The suprapubic port was removed and the Endo Catch bag introduced into the abdomen. The right and left tubes and ovaries were placed into the Endo Catch bag and retrieved. Сергей was applied over the surgical sites for continued hemostasis. Abdomen was desufflated and the patient was given several deep breaths for further expulsion of gas. This fascia of the suprapubic incision was closed using 3-0 Vicryl. The skin at all sites approximately using 4-0 Monocryl by the [employer] or my supervision. Steri-Strips are placed over the incisions and followed by OpSite dressings. The sponge stick and catheter were removed from the vagina and bladder, respectively. The patient was placed into dorsal supine position, awakened, extubated and transferred to the recovery room without complication. She tolerated the procedure well. Sponge and needle counts were correct 2. - Complications Dense adhesions - Admit VTE Documentation VTE Present on Admission: No VTE Mechan Device Prophylaxis: SCD's VTE Pharm Prophylaxis ordered?: No 05/19/17 1344 <Electronically signed by Gina Rae MD> Date Gina Rae MD CC: Ashely Grace DO; Gina Rae MD Signed MASS (DEFINE AREA) Observed: 05/19/2017 Status: F Source: [place] 10:05 AM [facility] Patient: AKILA DE LOS SANTOS : 1945 (72/F) Acct Num: [id number] Phys: Kyra LANDRY,[facility] Unit Num: [id number] [place] [facility] [place] Specimen: [id number] Received: 05/20/171034 Spec Type: Mass TISSUES TISSUES: A. Right ovary B. Left ovary GROSS DESCRIPTION A - Received in fixative is one container labeled with the patient's name and designated right adnexal mass and ovary. The specimen consists of a single, glistening piper ovary measuring 3.5 x 2.5 x 1.3 cm. Attached to this is an irregular fragment of possible cystic structure measuring 4 x 2 cm. No distinct fallopian tube is identified. Anesthesia Director sections are submitted in four cassettes. B - Received in fixative is one container labeled with the patient's name and designated left ovary. The specimen consists of a piper-white ovary measuring 5 x 2 x 1 cm. Adjacent to this is a fallopian tube with normal appearing fimbriated end measuring 6 cm in length and 0.7 cm in average diameter. Serial sections of the ovary do not reveal mass lesions. Serial sections of the fallopian tube likewise does not reveal mass lesions. Anesthesia Director sections are submitted in two cassettes as follows: 1 ovary, 2 fallopian tube. / AM :constantine 05/20/17 TC:1 CPT: 87799, 45673 HEADER OPERATION: Laparoscopic, bilateral salpingo-oophorectomy PRE-OP DIAGNOSIS: Lower abdominal pain, right ovarian cyst TISSUE SUBMITTED: A Right adnexal mass and ovary, B Left tube and ovary MICROSCOPIC DESCRIPTION Slides are reviewed. MICROSCOPIC DIAGNOSIS A. Right ovary and adnexal mass, oophorectomy: Serous cystadenoma. B. Left ovary and fallopian tube, salpingo-oophorectomy: Corpora albicantia. Fallopian tube with no significant pathologic change. AM:constantine 05/23/17 Signed Marcelino Funmi 05/23/17 <signature on file> Performed By: #### PMASS #### [facility] [address] [place] [address]. [place], [address] ALLERGIES ALLERGIES DATE TYPE / CODE NAME / CODE REACTION SEVERITY SOURCE 05/16/2017 Drug Penicillins/F Rash Unknown [facility] Allergy/4160 [id number](RXN Hospital 99978(SNOMED ORM) Repository CT) 05/16/2017 Drug Sulfa Hives Unknown [facility] Allergy/4160 (Sulfonamide Hospital [facility](SNOMED Antibiotics)/ Repository CT) [id number](RX NORM) 05/16/2017 Drug aspirin/F0060 Shortness of Unknown [facility] Allergy/4160 82167(RXNORM) breath Hospital 07148(SNOMED Repository CT) 05/16/2017 Drug latex/S655453 Rash Unknown [facility] Allergy/4160 921(RXNORM) Hospital 90582(SNOMED Repository CT) ENCOUNTERS ENCOUNTERS ADMIT/DISCHARGE ACCOUNT ADMITTING ENCOUNTER LOCATION SOURCE NUMBER CLASS 04/12/2018 [id number] Ambulatory [place] Francie [address] [facility] ing:MTLAB Repository 04/05/2018 [id number] Ambulatory [place] Francie [address] [facility] ing:OPBI Repository 11/28/2017 [id number] Ambulatory [place] [address] [facility] ing:BFHLAB Repository 05/19/2017/ [id number] Ambulatory [place] [address] [facility] ing:SDCRoom: Repository MS314 PAYERS PAYERS ENCOUNTER GUARANTOR PAYER SUBSCRIBER SOURCE 04/12/2018 AKILA Soni Primary AKILA E Franc[place] [id number] Emalene Insurance:AETARIANA VICTORB: [facility] Number: [id number] Hospital [address]Nun: 702 [id number] Repository [phone] () Date:1893-57-54AS [address], [place] [address]AY: 04/12/2018 Secondary NOT GIVENUNK Franc[place] Insurance:SELF PAY [facility] Number: Effective Repository Date:2018-04-12 04/05/2018 AKILA Soni Primary AKILA E Franc[place] [id number] Emalene Insurance:AETNA LYB: [facility] Number: [id number] Hospital [address]Qmy: 702 [id number] Repository [phone] () Date:5067-03-27EH [address], [place] [address]RA: 04/05/2018 Secondary NOT GIVENUNK Francie Insurance:SELF PAY [facility] Number: Effective Repository Date:2018-02-20 11/28/2017 Akila Felder1 Primary Akila VictorB: [place] Emalene Insurance:AETNA [id number] [address]Bie: 702 [id number] Repository [phone] () Date:1266-04-79TH [address] [place] [address]KR: 11/28/2017 Secondary NOT GIVENUNK [place] Insurance:SELF [facility]Y [facility] Number: Effective Repository Date:2017-11-28 05/19/2017 Akila De Los Santos4881 Primary Akila VictorB: Franc[place] Emalene Insurance:AETNA [id number] [facility] [address]Hpb: (702 [id number] Repository [phone] () Date:1414-41-22RH [address] [address]CN: 05/19/2017 Secondary NOT GIVENUNK [place] Insurance:SELF PAY [facility] Number: Effective Repository Date:2017-05-09
== END ==
PROVIDERS: Family Provider Family Medicine; PCP Family Medicine; Visit Provider Family Medicine
DX: Z12.31 Encounter for screening mammogram for malignant neoplasm of breast (principal)
CPT/HCPCS: 77063; 77067

== ENCOUNTER → 2018-04-12 09:40 | Outpatient (CLI) | payer MEDICARE, SELFPAY ==
[2018-04-12 12:40] LABS: Absolute Lymphocyte Count 1.64 X10^3/ul (0.83-4.51); Absolute Neutrophil Count 3.8 X10^3/uL (2.0-7.7); Basophil# 0.02 X10^3/uL; Basophil% 0.3 % (0-1); Eosinophils% 3.3 % (0-5); Hematocrit 42.6 % (37-47); Hemoglobin 13.6 g/dl (12.0-15.0); Lymphocyte # 1.64 X10^3/ul (4.0); Lymphocyte % 26.8 % (19-41); Mean Corp Hgb Conc 31.9 g/gl (32-36); Mean Corpuscular Hgb 29.3 pg (27.0-32.0); Mean Corpuscular Volume 91.8 fL (81-99); Mean Platelet Vol. 10.5 fl (6.2-12.0); Monocyte# 0.48 X10^3/uL; Monocyte% 7.8 % (0-10); Neutrophil # 3.78 X10^3/uL (2.7-7.7); Neutrophil % 61.6 % (47-70); Platelet Count 187 K/mm3 (150-450); RBC Distribution Width CV 11.9 % (11.6-14.6); Red Blood Count 4.64 M/mm3 (4.2-5.4); White Blood Count 6.1 K/mm3 (4.4-11.0)
[2018-04-12 12:41] LABS: POSITIVE COUNT NO; POSITIVE DIFFERENTIAL NO; POSITIVE MORPHOLOGY NO
[2018-04-12 12:58] LABS: Hemoglobin A1c 6.4 % (4.2-6.3)
[2018-04-12 13:05] LABS: AST(SGOT) 19 U/L (15-37); Alanine Aminotransfer ALT/SGPT 25 U/L (13-56); Albumin, Serum 3.6 g/dL (3.2-5.0); Alkaline Phosphatase 60 U/L (45-117); Anion Gap 9 (5-15); BUN 16 mg/dL (7-18); BUN/Creat Ratio 17.4 RATIO (10-20); Calcium,Total 8.8 mg/dL (8.5-10.1); Chloride 105 mmol/L (98-107); Cholesterol 187 mg/dL (200); Creatinine, Serum 0.92 mg/dL (0.55-1.02); EST Glomerular Filtration Rate 64 mL/min (>60); Est Glom Filt Rate - Afr Amer 77 mL/min (>60); Globulin 3.5 g/dL (2.2-4.2); Glucose 104 mg/dL (74-106); High Density Lipoprotein 75 mg/dL; Protein, Total 7.1 g/dL (6.4-8.2); Sodium Level 142 mmol/L (136-145); Triglycerides 110 mg/dL; Very Low Density Lipoprotein 22 mg/dL (5-40)
[2018-04-12 13:12] LABS: Microalbumin,Random Urine 86.2 mg/L (NO RANGE EST.); Microalbumin:Creatinine Ratio 28.8 mg/g CRE (<30 mg/g CRE)
--- OUTSIDE RECORDS SUMMARY | 2018-07-14 12:44 | XMS RPT_ITS ---
:1945 Author Organization OHIP Care Team Providers Name Role Phone LeslyAlyciaa Attending Unavailable Malys, Ashely Primary Care Unavailable Malys, Ashely Attending Unavailable Malys, Ashely Referring Unavailable Malys, Ashely Primary Care Unavailable Richard Beal Attending Unavailable Malys, Ashely Primary Care Unavailable Gina [...] Unknown R35.0 - Frequency Richard Beal Active [place] of micturition / Community R35.0(ICD-10) Hospital Repository 11/28/2017 Unknown N39.0 - Urinary Richard [facility]al Active [place] tract infection, Community site not specified Hospital / N39.0(ICD-10) Repository 05/20/2017 Unknown N94.9 - Unspecified Nielsen-Omega, Active [facility] condition [facility] Community associated with Hospital female genital Repository organs and menstrual cycle / N94.9(ICD-10) PROCEDURES PROCEDURES No Procedure Records FoundRESULTS RESULTS CBC W/DIFF, AUTOMATED Collected: 04/12/2018 Status: F Source: [place] 9:43 AM [facility] HOSPITAL REPOSITORY TYPE CODE TESTS RESULT OUT [...] Lymph 1.64 Performed By: #### L100.0100 #### [facility] [address] [place], [place], [address] HEMOGLOBIN A1C Collected: 04/12/2018 Status: F Source: [place] 9:43 AM REPOSITORY TYPE CODE TESTS RESULT OUT OF RANGE REFERENCE UNITS LAB L501.9985 4.2-6.3 % High HGB A1C 6.4 Performed By: #### L501.9985 #### [facility] [address] [place], [place], [address] COMPREHENSIVE METABOLIC Collected: 04/12/2018 Status: F Source: [facility] 9:43 AM REPOSITORY TYPE CODE TESTS RESULT OUT OF [...] 9 Performed By: #### L500.4050, L500.4100 #### [facility] [address] [place], [place], [address] LIPID PROFILE Collected: 04/12/2018 Status: F Source: [place] 9:43 AM REPOSITORY TYPE CODE TESTS RESULT OUT OF [...] 22 Performed By: #### L500.4050, L500.4100 #### [facility] [address] [place], [address] MICROALB:CREAT Collected: 04/12/2018 Status: F Source: [place] RATIO,RANDOM UR 9:43 AM REPOSITORY TYPE CODE TESTS RESULT OUT OF RANGE REFERENCE UNITS LAB L501.1200 NO RANGE EST. mg/dL Normal UR CREAT 299.00 LAB L502.0500 NO RANGE EST. mg/L Normal 86.2 MICROALBUMIN ,UR LAB L502.0600 <30 mg/g CRE mg/g CRE Normal 28.8 MALB:CREAT Performed By: #### L502.0250 #### [facility] [address] [place], [address] SCREENING MAMM (CAD), Observed: 04/05/2018 Status: F Source: [place] BILAT 2:[address] [facility] Imaging Services [address] [place] [address] SCREENING MAMM (CAD), BILAT MR#: [id number] Acct: [id number] Name: AKILA DE LOS SANTOS Rep #: [id number] : 1945 F 73 From: Chris Colmenares MD PCP: Ashely Grace DO Status: [facility] CLI Study: SCREENING MAMM (CAD), BILAT Date of Exam: 04/05/18 Exam# [id number] Ordering Dr: Ashely Grace DO MAMMOGRAPHY - [...] delay biopsy of a clinically suspicious abnormality. [id number] Electronically Signed: Chris Colmenares MD at 8:29 EST Tel [phone], Service support , CC: Ashely Grace DO 3Rd Grade Reading Teacher: Signed Observed: 11/28/2017 Status: F Source: [place] CULTURE, URINE 4:19 PM REPOSITORY Urine Culture ORGANISM 1: Escherichia coli Page Count >100,000 Escherichia coli: REACTION Amoxacillin/Clavulanic Acid [...] <=20 S (NF) indicates non-formulary drug at [facility]. Approval by Infectious Disease Specialist required before non-formulary drugs may be ordered and/or dispensed. Performed By: #### M100.0650 #### [facility] [address] [place], [address] DISCHARGE SUMMARY Observed: 05/23/2017 Status: F Source: [place] 8:[address] [facility] Medical Records Department [address] [place] [place] [address] Discharge Summary 05/23/17 0753 MR#: [id number] Acct: [id number] Name: AKILA DE LOS SANTOS Rep #: [id number] : 1945 72 From: Gina Duff MD PCP: Ashely Grace DO Status: [facility] Location[place] [facility] Discharge Date and Diagnosis Date of Admission: 05/19/17 Date of Discharge: 05/20/17 Hospital Course and Treatment Imaging Results: MR#: [id number] Acct: [id number] Name: AKILA DE LOS SANTOS Rep #: [id number] : 1945 F 72 From: Chris Colmenares MD PCP: Ashely Grace DO Status: [facility] Study: Abd Inc Decub and/or Erect Date of Exam: 05/20/17 Exam# [id number] Ordering Dr: Gina Avelar MD STUDY: X-RAY [...] Chris Colmenares MD at 10:41 EST Tel [phone], Service support , Operations: - - Laparoscopic [...] 05/20/2017 Status: F Source: [place] 11:[address] [facility] Medical Records Department [address] [place] [address] Instructions for Home/Discharge Instructions 05/19/17 1349 MR#: [id number] Acct: [id number] Name: AKILA DE LOS SANTOS Rep #: [id number] : 1945 72 From: Gina Duff MD [...] Prednisone taper. The Prescription was sent to [facility]. Please call the office with any [...] Rae MD> Date Gina Rae MD CC: Asheyl Grace DO ABD INC DECUB Observed: 05/20/2017 Status: F Source: [place] AND/OR ERECT 8:[address] [facility] Imaging Services [address] [place] [address] Abd Inc Decub and/or Erect MR#: [id number] Acct: [id number] Name: AKILA DE LOS SANTOS Rep #: [id number] : 1945 F 72 From: Chris Colmenares MD PCP: Ashely Grace DO Status: [facility] Study: Abd Inc Decub and/or Erect Date of Exam: 05/20/17 Exam# [id number] Ordering Dr: Gina Avelar MD STUDY: X-RAY [...] Chris Colmenares MD at 10:41 EST Tel [phone], Service support , CC: Ashely Grace DO; Gina Rae MD 3Rd Grade Reading Teacher: Signed CBC-COMPLETE BLOOD CNT Collected: 05/20/2017 Status: F Source: [place] NO DIFF 6:26 AM REPOSITORY TYPE CODE TESTS RESULT OUT OF [...] MPV 10.5 Performed By: #### L100.0500 #### [facility] [address] [place], [place], [address] CBC-COMPLETE BLOOD CNT Collected: 05/10/2017 Status: F Source: [place] NO DIFF 3:48 PM REPOSITORY TYPE CODE TESTS RESULT OUT OF RANGE REFERENCE UNITS LAB L100.1000 4.4-11.0 K/mm3 Normal WBC 5.5 LAB L100.1200 4.2-5.4 M/mm3 Normal RBC 4.63 LAB L100.1300 12.0-15.0 g/dl Normal HGB 13.5 LAB L100.1400 37-47 % Normal HCT 41.1 LAB L100.1500 81-99 fL Normal MCV 88.8 LAB L100.1600 27.0-32.0 pg Normal MCH 29.2 LAB L100.1700 32-36 g/gl Normal MCHC 32.8 LAB L100.1810 11.6-14.6 % Normal RDW CV 12.3 LAB L100.1820 35.1-43.9 fl Normal RDW SD 38.5 LAB L100.1900 150-450 K/mm3 Normal PLT 262 LAB L100.2000 6.2-12.0 fl Normal MPV 9.9 Performed By: #### L100.0500 #### [facility] [address] [place], [place], [address] PROTHROMBIN TIME W/INR Collected: 05/10/2017 Status: F Source: [place] 3:48 PM REPOSITORY TYPE CODE TESTS RESULT OUT OF RANGE REFERENCE UNITS LAB L300.4150 11.7-14.9 SECONDS Normal PROTIME 12.9 LAB L300.4200 Normal INR 1.0 Performed By: #### L300.3900, L300.4310 #### [facility] [address] [place], [place], [address] PARTIAL THROMBOPLAST Collected: 05/10/2017 Status: F Source: [place] TIME 3:48 PM REPOSITORY TYPE CODE TESTS RESULT OUT OF RANGE REFERENCE UNITS LAB L300.4310 24.1-36.2 Seconds Normal PTT 30.9 Performed By: #### L300.3900, L300.4310 #### [facility] [address] [place], [address] BASIC METABOLIC Collected: 05/10/2017 Status: F Source: [place] PROFILE (BMP) 3:48 PM REPOSITORY TYPE CODE TESTS RESULT OUT OF RANGE REFERENCE UNITS LAB L501.0100 70-110 mg/dL Normal GLU 88 LAB L501.1000 7-18 mg/dL Normal BUN 15 LAB L501.1100 0.55-1.02 mg/dL Normal 0.80 CREAT,SERUM Result Comment: The validity of the calculated GFR AND GFRAA in patients over 70 years has not been determined. Clinical correlation is essential. LAB L501.1110 >60 mL/min Normal EST GFR 75 Result Comment: Non- GFR Calc LAB L501.1115 >60 mL/min Normal EST GFR - AA 91 Result Comment: GFR Calc LAB L501.1300 10-20 RATIO Normal BUN/CRE 18.9 LAB L501.2200 8.5-10.1 mg/dL CA Normal 9.6 LAB L501.5300 136-145 mmol/L NA Normal 138 LAB L501.5600 3.5-5.1 mmol/L K Normal 4.2 LAB L501.5900 98-107 mmol/L CL Normal 103 LAB L501.6100 21.0-32.0 mmol/L Normal CO2 26.0 LAB L501.6200 5-15 Normal GAP 9 Performed By: #### L500.2500 #### [facility] [address] [place], [address] ALLERGIES ALLERGIES DATE TYPE / CODE NAME / CODE REACTION SEVERITY SOURCE 05/16/2017 Drug Penicillins/F Rash Unknown [facility] Allergy/4160 [id number](RXN Hospital 55026(SNOMED ORM) Repository CT) 05/16/2017 Drug Sulfa Hives Unknown [facility] Allergy/4160 (Sulfonamide Hospital 06022(SNOMED Antibiotics)/ Repository CT) [id number](RX NORM) 05/16/2017 Drug aspirin/F0060 Shortness of Unknown [facility] Allergy/4160 11288(RXNORM) breath Hospital [address]282(SNOMED Repository CT) 05/16/2017 Drug latex/C903207 Rash Unknown [facility] Allergy/4160 921(RXNORM) Hospital [facility](SNOMED Repository CT) ENCOUNTERS ENCOUNTERS ADMIT/DISCHARGE ACCOUNT ADMITTING ENCOUNTER LOCATION SOURCE NUMBER CLASS 04/12/2018 [id number] Ambulatory [place] [facility] 2 [facility] ing:MTLAB Repository 04/05/2018 [id number] Ambulatory [place] 2 [facility] ing:OPBI Repository 11/28/2017 [id number] Ambulatory [place] 0 [facility] ing:BFHLAB Repository 05/19/2017/ [id number] Ambulatory [place] 8 7 [facility] ing:SDCRoom: Repository MS314 PAYERS PAYERS ENCOUNTER GUARANTOR PAYER SUBSCRIBER SOURCE 04/12/2018 AKILA [place] [id number] Emalene Insurance:AETNA HUFFDOB: [facility] Number: [id number] Hospital [address]Evq: (277) [id number] Repository [phone] () Date:0173-73-88EI [address] [address]OK: 04/12/2018 Secondary NOT GIVENUNK [place] Insurance:SELF PAY [facility] Number: Effective Repository Date:2018-04-12 04/05/2018 AKILA Mcgeeoster [id number] Emal[place] Insurance:AETNA HUFFDOB: [facility] Number: [id number] Hospital [id number]: (134) [id number] Repository [phone] () Date:7341-96-56GJ [address] [address]DH: 04/05/2018 Secondary NOT GIVENUNK [place] Insurance:SELF PAY [facility] Number: Effective Repository Date:2018-02-20 11/28/2017 Akila De Los Santos4881 Primary Akila VictorB: [place] Emal[place] Insurance:AETNA [id number] [facility] Hospital [id number]: (702 [id number] Repository [phone] () Date:4781-90-51QQ [address] [place] [address]KC: 11/28/2017 Secondary NOT GIVENUNK [place] Insurance:SELF PAY [facility] Number: Effective Repository Date:2017-11-28 05/19/2017 Akila De Los Santos4881 Primary Akila VictorB: [place] Em[place] Insurance:AETNA [id number] [facility] Hospital [id number]: (702 [id number] Repository [phone] () Date:2012-23-83RO [address] [address]LU: 05/19/2017 Secondary NOT GIVENUNK Franc[place] Insurance:SELF PAY [facility] Number: Effective Repository Date:2017-05-09
== END ==
PROVIDERS: Family Provider Family Medicine; PCP Family Medicine; Referring Provider Family Medicine; Visit Provider Family Medicine
DX: E11.9 Type 2 diabetes mellitus without complications (principal); I10 Essential (primary) hypertension; E78.5 Hyperlipidemia, unspecified; Z51.81 Encounter for therapeutic drug level monitoring
CPT/HCPCS: 36415; 80053; 80061; 82043; 82570; 83036; 85025

== ENCOUNTER → 2018-07-18 13:50 | Outpatient (CLI) | payer MEDICARE, SELFPAY ==
[2018-07-17 10:22] VITALS: BMI 28.0
[2018-07-18 15:43] LABS: Color, Urine Amber (Yellow); Glucose, Dipstick 250 mg/dl (Normal); Ketone-Dipstick 5 mg/dl (Negative); Leukocyte Esterase-Dipstick 25 /ul (Negative); Nitrite-Dipstick Positive (Negative); Occult Blood-Urine 50 /ul (Negative); Protein-Dipstick 100 mg/dl (Negative); Specific Gravity, Urine 1.025 (1.002-1.030); Urine Clarity Clear (Clear); Urine Urobilinogen 1 mg/dl (Normal)
[2018-07-18 15:44] LABS: Urine Bilirubin Dipstick 1 mg/dL (Negative)
[2018-07-18 15:58] LABS: Red Blood Cells-Urine 5-10 SEEN /hpf (0-5); Squamous Epithelial Cells - UA 0-5 SEEN /hpf (5-10); White Blood Cells 0-5 SEEN /hpf (0-5)
[2018-07-18 15:59] LABS: Bacteria RARE /hpf (None Seen); Mucous, Urine 1+ /hpf (<or=2+)
== END ==
PROVIDERS: Visit Provider Obstetrics & Gynecology
DX: N39.0 Urinary tract infection, site not specified (principal)
CPT/HCPCS: 81001; 87086; 87088

== ENCOUNTER → 2018-08-14 14:16 | Outpatient (CLI) | payer MEDICARE, SELFPAY ==
[2018-08-14 11:03] VITALS: BMI 28.0
[2018-08-14 14:25] LABS: Bacteria 0 SEEN /hpf (None Seen); Red Blood Cells-Urine 0 SEEN /hpf (0-5); White Blood Cells 0 SEEN /hpf (0-5)
[2018-08-14 14:31] LABS: Color, Urine Yellow (Yellow); Glucose, Dipstick Normal (Normal); Ketone-Dipstick Negative (Negative); Leukocyte Esterase-Dipstick Negative /ul (Negative); Nitrite-Dipstick Negative (Negative); Occult Blood-Urine Negative /ul (Negative); Protein-Dipstick 15 mg/dl (Negative); Specific Gravity, Urine 1.015 (1.002-1.030); Urine Bilirubin Dipstick Negative (Negative); Urine Clarity Clear (Clear); Urine Urobilinogen Normal (Normal)
[2018-08-14 14:39] LABS: Mucous, Urine 1+ /hpf (<or=2+); Squamous Epithelial Cells - UA 0-5 SEEN /hpf (5-10)
== END ==
PROVIDERS: Family Provider Internal Medicine; PCP Internal Medicine; Referring Provider Internal Medicine; Visit Provider Internal Medicine
DX: R10.2 Pelvic and perineal pain (principal)
CPT/HCPCS: 81001; 87086; 87088

== ENCOUNTER → 2018-11-16 08:47 | Outpatient (CLI) | payer MEDICARE, SELFPAY ==
[2018-11-15 14:54] VITALS: BMI 28.3
--- NOTE | 2018-11-16 09:00 | RAD_ITS ---
STUDY: X-RAY - LEFT SHOULDER REASON FOR EXAM: Female, 73 years old. Pain, decreased range of motion TECHNIQUE: 4 view(s) of the shoulder. COMPARISON: None. FINDINGS: There is mild degenerative arthrosis of the glenohumeral articulation. Normal acromioclavicular joint. There is a spur on the undersurface of the acromium Normal humeral head and visualized proximal humerus. There is periarticular soft tissue calcification consistent with a calcific tendinitis. Normal visualized pulmonary apex. RAD/Shoulder min 2 Views IMPRESSION: Mild arthrosis without fracture Spur on the undersurface of the acromion could cause impingement in the right clinical setting Calcific rotator cuff tendinitis noted Electronically Signed: Eduar Nails MD at 9:18 EDT , Service support ,
[2018-11-16 10:21] LABS: Absolute Lymphocyte Count 1.57 X10^3/uL (0.83-4.51); Absolute Neutrophil Count 4.8 X10^3/uL (2.0-7.7); Basophil# 0.02 X10^3/uL; Basophil% 0.3 % (0-1); Eosinophil# 0.21 X10^3/uL; Eosinophils% 2.9 % (0-5); Hematocrit 38.1 % (37-47); Hemoglobin 12.4 g/dL (12.0-15.0); Lymphocyte # 1.57 X10^3/ul (4.0); Mean Corp Hgb Conc 32.5 g/dL (32-36); Mean Corpuscular Hgb 30.2 pg (27.0-32.0); Mean Corpuscular Volume 92.9 fL (81-99); Mean Platelet Vol. 10.6 fl (6.2-12.0); Monocyte# 0.51 X10^3/uL; Monocyte% 7.2 % (0-10); NRBC Flagged by Analyzer 0 % (0-5); Neutrophil % 67.3 % (47-70); Platelet Count 168 K/mm3 (150-450); RBC Distribution Width CV 11.9 % (11.6-14.6); RBC Distribution Width SD 40.9 fl (35.1-43.9); White Blood Count 7.1 K/mm3 (4.4-11.0)
[2018-11-16 10:48] LABS: ALB/GLOB Ratio 1.2 RATIO (0.9-2.4); AST(SGOT) 21 U/L (15-37); Alanine Aminotransfer ALT/SGPT 35 U/L (13-56); Albumin, Serum 3.7 g/dL (3.2-5.0); Alkaline Phosphatase 70 U/L (45-117); Anion Gap 10 (5-15); BUN 11 mg/dL (7-18); BUN/Creat Ratio 12.3 RATIO (10-20); Calcium,Total 8.8 mg/dL (8.5-10.1); Chloride 106 mmol/L (98-107); Creatinine, Serum 0.89 mg/dL (0.55-1.02); EST Glomerular Filtration Rate 66 mL/min (>60); Est Glom Filt Rate - Afr Amer 80 mL/min (>60); Glucose 105 mg/dL (74-106); Potassium 3.7 mmol/L (3.5-5.1); Protein, Total 6.7 g/dL (6.4-8.2); Sodium Level 144 mmol/L (136-145); T4 Free Direct 0.99 ng/dL (0.76-1.46); Thyroid Stim Hormone (TSH) 2.47 uIU/mL (0.358-3.74)
== END ==
PROVIDERS: Family Provider Internal Medicine; PCP Internal Medicine; Referring Provider Internal Medicine; Visit Provider Internal Medicine
DX: E11.9 Type 2 diabetes mellitus without complications (principal); Z13.29 Encounter for screening for other suspected endocrine disorder; I10 Essential (primary) hypertension; E78.5 Hyperlipidemia, unspecified; M25.512 Pain in left shoulder; J45.909 Unspecified asthma, uncomplicated
CPT/HCPCS: 36415; 73030; 80053; 84439; 84443; 85025

== ENCOUNTER 2018-12-12 15:00 | Outpatient (RCR) | payer MEDICARE, SELFPAY ==
[2018-11-15 14:54] VITALS: BMI 28.3
--- NOTE | 2018-11-30 12:20 | HP.PTEVAL ---
Patient's Visit Information AKILA DE LOS SANTOS is a 73 year old F referred to Physical Therapy by Lawrence Herrera MD with a diagnosis of L shoulder pain. Date of Evaluation: 11/30/18 Physical Therapist: Karl Acosta PT, ATC - Visit Plan Frequency: 2x /Week Duration: 2 Weeks Plan: L shoulder strengthening (rot cuff), scap stab ex's, UBE, and HEP - Subjective Findings: Pt reports her L shoulder has been sore for 2 months. Pt reports her pain had an insidious onset in nature. Pt reports she is R hand domininat. Pt reports her pain has been worsening over the past 2 months. Finally went to the Dr. and recieved xrays which revealed OA and tendonitis. Pt reports no UE tingling or numbness at this time. Pt reports she has sleep difficulty secondary to pain without taking meds. Pt reports any ifting overhead causes her the most pain. Pt rates her pain at 0/10 at rest, 6/10 at worst - Pain L shoulder pain Pain Intensity (Out of 10): 0 Pain Intensity Range: 6 - Objective Neuro: B UE sensation is WNL to light touch. B bicepital reflex- 2/3. Palpation: Pt is very sore along LHB and supraspinatus tendons. ROM: R shoulder flex= 140, abd= 130, ER= 40, IR WNL; L shoujlder flex= 110, abd= 90, ER=10, IR mininmally limited. MMT: R shoulder is 5/5 throughout. L shoulder 4-/5 throughout and painful. Special test: pos speeds, empty can, and HK - Goals Goal 1:: Decrease L shoulder pain x 50% to aid with sleep Goal Time Frame: 2-4 Weeks Goal 2:: Increase L shoulder ROM flex and abd x 30 degrees to aid with overhead lifting Goal Time Frame: 2-4 Weeks Goal 3:: Increase L shoulder strength x 1 grade to aid with IADL's Goal Time Frame: 2-4 Weeks Goal 4:: I with HEP Goal Time Frame: 2-4 Weeks - Rehabilitation Potential Physical Therapy Diagnosis: L shoulder pain, weakness, and limited ROM secondary to L rotator cuff syndrome Rehabilitation Potential: Good - Anticipated Interventions Patient/Client Instruction: Educate patient on: Condition, Plan of Care For the Purpose of:: To improve self management Therapeutic Exercise to Include: Strength training, Endurance training, Flexibilty training, Active ROM, Scapular Strength/Stabilization For the Purpose of:: To decrease pain, To increase ROM, To improve muscle performance and motor function Cryotherapy (ice pack, ice massage): Yes For the Purpose of:: To decrease pain Thank you for the opportunity to evaluate your patient. For Medicare and Medicare HMO plans, please review the plan of care and approve it. It will need to be FAXED BACK to us at [phone] for Medicare purposes. For Medicare only, by signing this I certify the plan of care. Please let me know if there are questions or concerns regarding this plan of care. Physician Signature: Date:
--- NOTE | 2018-12-12 15:49 | HP.PTDCSUM ---
HP - PT D/C Summary It has been my pleasure to treat AKILA DE LOS SANTOS under orders from Lawrence Herrera MD, for the diagnosis of L shoulder pain for a total of 4 visit(s). Discharge Date: Please see the following information for a summary of their discharge status. - Subjective Subjective: I feel great today - Pain L shoulder pain Pain Intensity (Out of 10): 0 - Overall Improvement % Improvement: 95 - Objective Objective/Function: L shoulder pain 0/10. L shoulder ROM: flex and abd= 150 degrees. L UE MMT: 5/5 throughout. I with HEP. Rx goals achieved - Goals Goal 1:: Decrease L shoulder pain x 50% to aid with sleep Goal Progress: Goal Met Goal 2:: Increase L shoulder ROM flex and abd x 30 degrees to aid with overhead lifting Goal Progress: Goal Met Goal 3:: Increase L shoulder strength x 1 grade to aid with IADL's Goal Progress: Goal Met Goal 4:: I with HEP Goal Progress: Goal Met - Plan Plan: discharge - D/C Information If there are questions or concerns regarding this patient's physical therapy, please feel free to call me at [phone]. Thank you for the referral of this patient. Sincerely, Karl Acosta, PT, ATC
== END 2018-12-12 19:00 | disposition home or self-care (01) ==
LOC: PT 15:00
PROVIDERS: Family Provider Internal Medicine; PCP Internal Medicine; Referring Provider Internal Medicine; Visit Provider Internal Medicine
DX: M25.512 Pain in left shoulder (principal)
CPT/HCPCS: 97110; 97161; 97530

== ENCOUNTER → 2019-02-23 17:51 | Outpatient (CLI) | payer MEDICARE, SELFPAY ==
[2019-02-23 14:22] VITALS: BMI 28.3
[2019-02-23 17:52] LABS: Bacteria 0 SEEN /hpf (None Seen)
[2019-02-23 17:59] LABS: Color, Urine Yellow (Yellow); Glucose, Dipstick Normal (Normal); Ketone-Dipstick Negative (Negative); Leukocyte Esterase-Dipstick Negative /ul (Negative); Nitrite-Dipstick Negative (Negative); Occult Blood-Urine Negative /ul (Negative); Protein-Dipstick Negative (Negative); Urine Bilirubin Dipstick Negative (Negative); Urine Clarity Clear (Clear); Urine Urobilinogen Normal (Normal)
[2019-02-23 18:12] LABS: Mucous, Urine 3+ /hpf (<or=2+); Squamous Epithelial Cells - UA 0-5 SEEN /hpf (5-10)
[2019-02-23 18:13] LABS: Hyaline Cast 0-5 SEEN /lpf (0-5)
[2019-02-23 18:14] LABS: White Blood Cells 0-5 SEEN /hpf (0-5)
[2019-02-23 18:15] LABS: Red Blood Cells-Urine 0-5 SEEN /hpf (0-5)
== END ==
PROVIDERS: Family Provider Internal Medicine; PCP Internal Medicine; Visit Provider Physician Assistant Surgical
DX: M54.9 Dorsalgia, unspecified (principal); G89.29 Other chronic pain; R82.998 Other abnormal findings in urine
CPT/HCPCS: 81001; 87086

== ENCOUNTER → 2019-04-05 08:45 | Outpatient (CLI) | payer MEDICARE, SELFPAY ==
[2019-03-29 14:11] VITALS: BMI 28.3
[2019-04-05 10:27] LABS: Anion Gap 6 (5-15); BUN 13 mg/dL (7-18); BUN/Creat Ratio 13.5 RATIO (10-20); Calcium,Total 9.2 mg/dL (8.5-10.1); Chloride 108 mmol/L (98-107); Cholesterol 198 mg/dL (200); Creatinine, Serum 0.96 mg/dL (0.55-1.02); EST Glomerular Filtration Rate 60 mL/min (>60); Est Glom Filt Rate - Afr Amer 73 mL/min (>60); Glucose 104 mg/dL (74-106); High Density Lipoprotein 86 mg/dL; Potassium 4.1 mmol/L (3.5-5.1); Sodium Level 144 mmol/L (136-145); Triglycerides 91 mg/dL; Very Low Density Lipoprotein 18 mg/dL (5-40)
== END ==
PROVIDERS: Family Provider Internal Medicine; PCP Internal Medicine; Referring Provider Internal Medicine; Visit Provider Internal Medicine
DX: E11.9 Type 2 diabetes mellitus without complications (principal); I10 Essential (primary) hypertension
CPT/HCPCS: 36415; 80048; 80061

== ENCOUNTER → 2019-04-24 11:08 | Outpatient (CLI) | payer MEDICARE, SELFPAY ==
[2019-03-29 14:11] VITALS: BMI 28.3
--- NOTE | 2019-04-24 11:09 | BI_ITS ---
MAMMOGRAPHY - BILATERAL SCREENING 3-D TOMOSYNTHESIS REASON FOR EXAM: Female, 74 years old. NO FAM HX CURR ESTRADIOL X40 YRS -- NO PREV SX -- EXTRA LT CC DUE TO SHOULDER IN VIEW PERTINENT HISTORY: No significant family history. TECHNIQUE: 2-D mammograms and 3-D Tomosynthesis of the breast (s) were performed. CAD was performed. COMPARISON: April 05, 2018 FINDINGS: The breast composition is composed of scattered fibroglandular density. Scattered benign calcifications are seen. No dense spiculated masses or suspicious microcalcifications are identified. No architectural distortion is identified. There is no skin thickening or retraction. There has been no significant change since the prior study. BI/SCREEN MAMM (CAD) W/MICHAEL BILAT IMPRESSION: No mammographic signs of malignancy. Routine yearly mammograms recommended. ASSESSMENT CATEGORY: BIRADS Category 1: Negative. A letter regarding these results will be sent to the patient by the facility within 30 days. FOLLOW UP RECOMMENDATION: Yearly follow up mammogram recommended. (A) Approximately 10% of breast cancers are not detected by mammography. A normal mammogram should not delay biopsy of a clinically suspicious abnormality. Electronically Signed: Joon Sultana MD at 9:06 EST , Service support ,
== END ==
PROVIDERS: Family Provider Internal Medicine; PCP Internal Medicine; Referring Provider Internal Medicine; Visit Provider Internal Medicine
DX: Z12.31 Encounter for screening mammogram for malignant neoplasm of breast (principal)
CPT/HCPCS: 77063; 77067

== ENCOUNTER → 2019-05-22 12:03 | Outpatient (CLI) | payer MEDICARE, SELFPAY ==
[2019-05-22 10:57] VITALS: BMI 28.3
--- NOTE | 2019-05-22 12:07 | RAD_ITS ---
STUDY: X-RAY - LUMBAR SPINE REASON FOR EXAM: Female, 74 years old. back pain, last back surgery was in 2004 TECHNIQUE: 3 view(s) of the lumbar spine were obtained. COMPARISON: CT scan of abdomen and pelvis 04/25/2017. FINDINGS: Normal lumbar lordosis. There is levoscoliosis of the lumbar spine and dextroscoliosis of the upper spine. There is a normal alignment of the vertebrae. The patient is status post anterior spinal fusions at the L2-3, L3-4, and L4-5 levels with placement of left lateral fixation plates and screws as well as intervertebral cage devices. Patient is also status post posterior spinal fusion at the L5-S1 level, with placement of bilateral posterior fixation rods and pedicle screws. Hardware appears to be intact. There is disc space narrowing and vacuum phenomenon as well as spondylosis at the T12-L1 and L1-L2 levels. The soft tissue structures are unremarkable. RAD/Lumbar Spine 2 or 3 Views IMPRESSION: Intact multilevel spinal fusions, as above. S-shaped scoliosis. Degenerative changes. No demonstrated fracture or subluxation. Electronically Signed: Alexei Duarte MD at 0:05 EST , Service support ,
== END ==
PROVIDERS: PCP Internal Medicine; Referring Provider Internal Medicine; Visit Provider Internal Medicine
DX: M54.16 Radiculopathy, lumbar region (principal)
CPT/HCPCS: 72100

== ENCOUNTER → 2019-07-17 12:01 | Outpatient (CLI) | payer MEDICARE, SELFPAY ==
[2019-05-22 10:57] VITALS: BMI 28.3
[2019-07-17 15:33] LABS: Anion Gap 9 (5-15); BUN 13 mg/dL (7-18); BUN/Creat Ratio 12.7 RATIO (10-20); Calcium,Total 8.9 mg/dL (8.5-10.1); Chloride 104 mmol/L (98-107); Creatinine, Serum 1.02 mg/dL (0.55-1.02); EST Glomerular Filtration Rate 56 mL/min (>60); Est Glom Filt Rate - Afr Amer 68 mL/min (>60); Glucose 150 mg/dL (74-106); Potassium 4.4 mmol/L (3.5-5.1); Sodium Level 142 mmol/L (136-145)
== END ==
PROVIDERS: PCP Internal Medicine; Referring Provider Internal Medicine; Visit Provider Internal Medicine
DX: I10 Essential (primary) hypertension (principal); E87.6 Hypokalemia
CPT/HCPCS: 36415; 80048

== ENCOUNTER → 2019-08-23 11:21 | Outpatient (CLI) | payer MEDICARE, SELFPAY ==
[2019-08-21 13:41] VITALS: BMI 28.3
[2019-08-23 15:16] LABS: Absolute Lymphocyte Count 1.46 X10^3/uL (0.83-4.51); Basophil# 0.04 X10^3/uL; Basophil% 0.6 % (0-1); Eosinophil# 0.21 X10^3/uL; Eosinophils% 3.4 % (0-5); Hematocrit 40.6 % (37-47); Hemoglobin 12.7 g/dL (12.0-15.0); Lymphocyte # 1.46 X10^3/ul (4.0); Lymphocyte % 23.3 % (19-41); Mean Corp Hgb Conc 31.3 g/dL (32-36); Mean Corpuscular Volume 92.7 fL (81-99); Mean Platelet Vol. 11.1 fl (6.2-12.0); Monocyte# 0.52 X10^3/uL; Monocyte% 8.3 % (0-10); NRBC Flagged by Analyzer 0 % (0-5); Neutrophil # 4.03 X10^3/uL (2.7-7.7); Neutrophil % 64.4 % (47-70); Platelet Count 160 K/mm3 (150-450); RBC Distribution Width CV 11.2 % (11.6-14.6); RBC Distribution Width SD 38.3 fl (35.1-43.9); Red Blood Count 4.38 M/mm3 (4.2-5.4); White Blood Count 6.3 K/mm3 (4.4-11.0)
[2019-08-23 15:34] LABS: T4 Free Direct 1.05 ng/dL (0.76-1.46); Thyroid Stim Hormone (TSH) 1.77 uIU/mL (0.358-3.74)
== END ==
PROVIDERS: PCP Internal Medicine; Referring Provider Internal Medicine; Visit Provider Internal Medicine
DX: R53.83 Other fatigue (principal); Z13.29 Encounter for screening for other suspected endocrine disorder
CPT/HCPCS: 36415; 84439; 84443; 85025

== ENCOUNTER → 2019-08-27 15:31 | Outpatient (CLI) | payer MEDICARE, SELFPAY ==
[2019-08-21 13:41] VITALS: BMI 28.3
--- NOTE | 2019-08-27 15:45 | RAD_ITS ---
STUDY: X-RAY - THORACIC SPINE REASON FOR EXAM: Female, 74 years old. HISTORY OF 3 BACK SURGERIES. NO RECENT INJURY. PAIN LOWER THORACIC SPINE WITH PAIN ON INSIDE OF LEFT UPPER LEG. TECHNIQUE: 3 view(s) of the thoracic spine were obtained. COMPARISON: None. FINDINGS: Normal kyphosis of the thoracic spine. There is moderately severe S-shaped thoracolumbar scoliosis. There is diffuse endplate spondylosis of the thoracic spine. Normal disc space heights. There is orthopedic hardware of the visualized lumbar spine. The soft tissue structures are unremarkable. RAD/Thoracic Spine 3 Views IMPRESSION: Moderately severe S shaped thoracolumbar scoliosis. Diffuse endplate spondylosis of the thoracic spine. There is orthopedic hardware the visualized lumbar spine. There is no evidence of fracture or subluxation. Electronically Signed: Byron Vann MD at 16:20 EDT , Service support ,
== END ==
PROVIDERS: PCP Internal Medicine; Referring Provider Anesthesiology Pain Medicine; Visit Provider Anesthesiology Pain Medicine
DX: M54.9 Dorsalgia, unspecified (principal)
CPT/HCPCS: 72072

== ENCOUNTER → 2019-10-12 12:25 | Outpatient (CLI) | payer MEDICARE, SELFPAY ==
[2019-08-21 13:41] VITALS: BMI 28.3
--- NOTE | 2019-10-12 12:33 | MRI_ITS ---
STUDY: MRI LUMBAR SPINE WITHOUT CONTRAST REASON FOR EXAM: Female, 74 years old. Mid to low back pain, leg weakness. 3 prior lumbar surgeries TECHNIQUE: Standardized fat and water weighted pulse sequences were obtained in the sagittal and axial planes. COMPARISON: CT abdomen and pelvis without contrast 04/25/2017. FINDINGS: T10-T11: (Sagittal only). Mild irregularities of the T10 inferior endplate due to intervertebral osteochondrosis. Normal T11 superior endplate. Minimal disc space height narrowing. No ventral extradural defect. Normal central canal and bilateral intervertebral neural foramina. T11-T12: (Sagittal only). Normal endplates. Minimal disc space height narrowing. Small posterior bulging disc. Normal central canal and bilateral intervertebral neural foramina. T12-L1: (Sagittal only). Normal endplates. Normal disc height. Small posterior bulging disc. Normal central canal and bilateral intervertebral neural foramina. Normal lumbar lordosis. Moderate dextroscoliosis of the upper lumbar spine. Normal conus medullaris that terminates at the upper L1 vertebral body level. L1-2: Schmorl''s node in the L2 superior endplate. Mild Modic type I degenerative vertebral marrow edema underneath the left side of the vertebral endplates. Pronounced left-sided disc space height narrowing. Normal central canal and bilateral lateral recesses. Moderate left degenerative facet arthropathy. Mild right degenerative facet arthropathy. L2-3: Left metallic plate with laterally penetrating metallic screws into the L2 and L3 vertebral bodies. Disc implant inside the disc space. Normal central canal and bilateral lateral recesses. Mild asymmetric degenerative facet arthropathy. Normal bilateral intervertebral neural foramina. L3-4: Left metallic plate with transfixing screws and disc implant. Normal central canal and bilateral lateral recesses. Mild degenerative facet arthropathy. Normal bilateral intervertebral neural foramina. L4-5: Left the metallic plate with transfixing screws and disc implant. Mild anterolisthesis of L4 on L5 is unchanged. Mild to moderate central canal stenosis with an AP canal diameter of 7.5 mm. Normal bilateral lateral recesses. Moderate degenerative facet arthropathy. Normal bilateral intervertebral neural foramina. Left renal cysts are visible at this level. L5-S1: Normal endplates. Normal disc height and morphology. Pedicular screws and rods. Postsurgical absence of the spinous process and lamina. Capacious thecal sac. Normal bilateral lateral recesses. Limited visualization of the facet joints due to pedicular screws and rods. Normal bilateral intervertebral neural foramina. Normal visualized sacral ala. Normal visualized paraspinous soft tissue structures. MRI/Spine Lumbar (Routine) IMPRESSION: 1. No MRI evidence of lumbar extruded disc fragment. 2. Moderate dextroscoliosis of the upper lumbar spine is unchanged. 3. Pronounced left-sided L1-L2 disc space height narrowing with mild Modic type I degenerative vertebral marrow edema underneath the left side of the vertebral endplates and moderate left degenerative facet arthropathy. 4. Mild anterolisthesis of L4 on L5 is unchanged. 5. Left-sided metallic plates with transfixing screws and disc implants at L2-L3, L3-L4 and L4-L5 disc space levels are unchanged. 6. Postsurgical absence of the L5 spinous process and lamina and the pedicular screws and rods at L5-S1. 7. Mild to moderate central canal stenosis at L4-L5 disc level with an AP canal diameter of 7.5 mm. Electronically Signed: Fermin Dominguez MD at 11:37 EDT , Service support ,
== END ==
PROVIDERS: PCP Internal Medicine; Referring Provider Anesthesiology Pain Medicine; Visit Provider Anesthesiology Pain Medicine
DX: M54.9 Dorsalgia, unspecified (principal); R53.1 Weakness
CPT/HCPCS: 72148

== ENCOUNTER → 2019-12-12 12:28 | Outpatient (CLI) | payer MEDICARE, SELFPAY ==
[2019-11-13 16:05] VITALS: BMI 28.3
--- NOTE | 2019-12-12 12:33 | RAD_ITS ---
STUDY: X-RAY - THORACIC SPINE REASON FOR EXAM: Female, 74 years old. Back pain TECHNIQUE: 2 view(s) of the thoracic spine were obtained. COMPARISON: 08/27/2019 FINDINGS: Normal kyphosis of the thoracic spine. There is moderately severe S-shaped thoracolumbar scoliosis. There is diffuse endplate spondylosis of the thoracic spine. Normal disc space heights. There is orthopedic hardware of the visualized lumbar spine. The soft tissue structures are unremarkable.. RAD/Thoracic Spine 2 Views IMPRESSION: No demonstrated fracture or suspicious osseous lesion Stable S-type scoliosis No interval change Electronically Signed: Eduar Nails MD at 12:50 EDT , Service support ,
== END ==
PROVIDERS: PCP Internal Medicine; Referring Provider Anesthesiology Pain Medicine; Visit Provider Anesthesiology Pain Medicine
DX: M54.9 Dorsalgia, unspecified (principal)
CPT/HCPCS: 72070

== ENCOUNTER 2020-01-07 14:13 | Emergency (ER) | payer MEDICARE, SELFPAY ==
[2019-11-13 16:05] VITALS: BMI 28.3
[2020-01-07] VITALS (7 sets, daily range): BP systolic 134–143; BP diastolic 64–69; PULSE 66–86; RESP 15–18; TEMP 36.5; O2SAT 98–99; BMI 28.6
--- NOTE | 2020-01-07 14:29 | RAD_ITS ---
STUDY: X-RAY CHEST REASON FOR EXAM: Female, 74 years old. Shortness of breath TECHNIQUE: Single AP portable view of the chest. COMPARISON: Comparison is made with prior study of 08/26/2016. FINDINGS: EKG electrodes are seen. The lungs are clear and expanded. There is no demonstrated pleural abnormality. Normal size heart. Normal mediastinum and [place]. Normal visualized pulmonary arteries. There is atherosclerotic tortuosity of the aortic arch and descending thoracic aorta. There are diffuse degenerative changes of the visualized thoracic spine. Dextroscoliosis. Prior fusion of the visualized lumbar spine. Normal visualized ribs, clavicles, and shoulders. There is no demonstrated abnormality of the visualized soft tissue structures of the upper abdomen. RAD/Chest 1 View (Portable) IMPRESSION: No acute abnormality is seen. Electronically Signed: Chris Colmenares, at 15:08 EDT , Service support ,
--- NOTE | 2020-01-07 14:30 | EKG12_ITS ---
Test Reason : SOB Blood Pressure : / mmHG Vent. Rate : 061 BPM Atrial Rate : 061 BPM P-R Int : 174 ms QRS Dur : 068 ms QT Int : 390 ms P-R-T Axes : 030 -05 051 degrees QTc Int : 392 ms Normal sinus rhythm Cannot rule out Anterior infarct , age undetermined Abnormal ECG Confirmed by OLGA LANDRY, PENELOPE ([id number]), news video editor ROBIN GAUTHIER ([id number]) on 01/09/2020 11:06:17 AM Referred By: Confirmed By:PENELOPE ESPINOZA MD
--- NOTE | 2020-01-07 14:30 | VDLE_ITS ---
Reason For Study: Swelling Procedure LEFT Exam performed portable in ED. GSV is normal. A preliminary report was called and/or faxed CFV is compressible, spontaneous, phasic, to Chau. competent, and demonstrates normal augmentation. FV is compressible, spontaneous, phasic, competent and demonstrates normal augmentation. POP V is compressible, spontaneous, phasic, competent and demonstrates normal augmentation. T/P Trunk is compressible. PTV is compressible. LT PerV is compressible. Interpretation Summary There is no evidence of left lower extremity deep vein thrombosis. Left great saphenous vein appears patent and compressible segmentally. Ordering Physician: Frances Ritchie Referring Physician: Lawrence Herrera Performed By: Noreen Mejia RVT
--- NOTE | 2020-01-07 14:32 | ED.VISSUMM ---
- ER Visit Summary Date of Service: 01/07/20 Chief Complaint: Shortness of breath History of Present Illness: The patient is a 74 F presenting with shortness of breath. She states this started last night. It is worsened with exertion. She denies chest pain. Denies fever or cough. She also complains of both ears being clogged. She also complains of left ankle swelling. She denies ankle pain or injury. Denies calf pain. Denies recent travel. She does have a remote history of DVT. She is not on anticoagulants. She is not a smoker. No known exposure to COVID. Physical Examination: Vitals are stable. Patient is afebrile. Alert no acute distress. Pulse ox 99% on room air. HEENT exam bilateral cerumen impaction Neck is supple. Lungs are mild expiratory wheezing bilaterally. Heart is regular rate and rhythm. Abdomen is soft nontender nondistended. Extremities mild left ankle swelling. No erythema or warmth. No tenderness. No pain with range of motion. Normal pulses. Skin is warm and dry. No focal neurologic deficit. Remainder of exam is unremarkable. Emergency Department Course and Treatment: Patient was given DuoNeb aerosol. CBC unremarkable other than hemoglobin 11.5. Chemistries normal except potassium 3.3, glucose 150. Troponin 0.033. Chest x-ray shows no acute process. Left ankle x-ray shows mild soft tissue swelling. Left lower extremity venous Doppler shows no evidence of DVT. Patient feels improved after aerosol. Her ambulatory pulse ox was 98% on room air. Her ears are irrigated with the Debrox with improvement. She feels improved and would like to go home. She will follow-up with her primary care physician. She is advised return to the ED if she has any worsening complaints. She was given a prescription for prednisone. She has an albuterol inhaler at home. Advised return to ED for worsening complaints. Disposition: Discharge home Impression: Asthma exacerbation, bilateral cerumen impaction This note was generated with Trusper dictation software. It may contain incorrect words, spelling, and punctuation that were not noted in review of the chart prior to signing ED Disposition - Plan for ED Patient: Instructions: Understanding Asthma Prescriptions: Prednisone [Deltasone] 40 mg PO DAILY #10 tab Prescription Printed Referrals: Lawrence Herrera MD [Primary Care Provider] - Endy Rivera MD [STAFF PHYSICIAN] -
--- NOTE | 2020-01-07 14:51 | RAD_ITS ---
STUDY: X-RAY - LEFT ANKLE REASON FOR EXAM: Female, 74 years old. Left ankle swelling TECHNIQUE: 3 view(s) of the ankle. COMPARISON: None. FINDINGS: Normal visualized distal tibia and fibula. Normal medial and lateral malleoli. Normal tibiotalar articulation and ankle mortise. Normal visualized talus and calcaneus. The visualized subtalar, talonavicular, calcaneocuboid and tarsal articulations are normal. Mild soft tissue swelling. RAD/Ankle min 3 Views IMPRESSION: Mild soft tissue swelling. Electronically Signed: Chris Colmenares, at 15:07 EDT , Service support ,
[2020-01-07 14:52] LABS: Absolute Lymphocyte Count 1.17 X10^3/uL (0.83-4.51); Absolute Neutrophil Count 4.5 X10^3/uL (2.0-7.7); Basophil# 0.03 X10^3/uL; Basophil% 0.4 % (0-1); Eosinophil# 0.34 X10^3/uL; Eosinophils% 5.1 % (0-5); Hematocrit 35.3 % (37-47); Hemoglobin 11.5 g/dL (12.0-15.0); Lymphocyte # 1.17 X10^3/ul (4.0); Lymphocyte % 17.4 % (19-41); Mean Corp Hgb Conc 32.6 g/dL (32-36); Mean Corpuscular Hgb 30.3 pg (27.0-32.0); Mean Corpuscular Volume 93.1 fL (81-99); Mean Platelet Vol. 10.1 fl (6.2-12.0); Monocyte# 0.63 X10^3/uL; Monocyte% 9.4 % (0-10); NRBC Flagged by Analyzer 0 % (0-5); Neutrophil # 4.54 X10^3/uL (2.7-7.7); Neutrophil % 67.4 % (47-70); Platelet Count 165 K/mm3 (150-450); RBC Distribution Width CV 11.4 % (11.6-14.6); RBC Distribution Width SD 38.7 fl (35.1-43.9); Red Blood Count 3.79 M/mm3 (4.2-5.4); White Blood Count 6.7 K/mm3 (4.4-11.0)
[2020-01-07] MEDS: Ipratropium/Albuterol Sulfate 3 ML AMPUL.NEB INHALATION (15:00)
[2020-01-07 15:09] LABS: Anion Gap 5 (5-15); BUN 10 mg/dL (7-18); Calcium,Total 8.9 mg/dL (8.5-10.1); Chloride 105 mmol/L (98-107); Creatinine, Serum 0.91 mg/dL (0.55-1.02); EST Glomerular Filtration Rate 64 mL/min (>60); Est Glom Filt Rate - Afr Amer 77 mL/min (>60); Estimated Creatinine Clearance 40.93 ml/min; Glucose 150 mg/dL (74-106); Potassium 3.3 mmol/L (3.5-5.1); Sodium Level 140 mmol/L (136-145)
[2020-01-07] MEDS: Carbamide Peroxide 15 ML Bottle 5 DRP OTIC (15:10)
--- NOTE | 2020-01-07 16:43 | ED.DEP ---
ED Disposition - Plan for ED Patient: Instructions: Understanding Asthma Prescriptions: Prednisone [Deltasone] 40 mg PO DAILY #10 tab Prescription Printed Referrals: Lawrence Herrera MD [Primary Care Provider] - Endy Rivera MD [STAFF PHYSICIAN] -
[2020-01-07] MEDS: predniSONE 20 MG Tablet 40 MG PO (17:08)
== END 2020-01-07 17:15 | disposition home or self-care (01) ==
LOC: ED 14:45
PROVIDERS: Emergency Provider Emergency Medicine; PCP Internal Medicine
DX: J45.901 Unspecified asthma with (acute) exacerbation (principal); H61.23 Impacted cerumen, bilateral; Z86.718 Personal history of other venous thrombosis and embolism
CPT/HCPCS: 71045; 73610; 80048; 84484; 85025; 93005; 93971; 94640; 99285

== ENCOUNTER → 2020-01-31 08:11 | Outpatient (CLI) | payer MEDICARE, SELFPAY ==
[2020-01-16 09:54] VITALS: BMI 28.6
--- NOTE | 2020-02-02 09:07 | PFT_ITS ---
INTRODUCTION: The patient is a 74-year-old -[place] female that presents for pulmonary function studies secondary to a diagnosis of asthma. Respiratory therapy reports good patient effort. Bronchodilators were used during testing. INTERPRETATION: Forced expiration spirometry demonstrates no evidence of a large airways obstructive ventilatory defect. There was no significant response to aerosolized bronchodilators, based upon strict ATS criteria. Spirograms are of good quality and plateau normally. Body plethysmography was performed and reveals lung volumes to be within normal limits. Diffusing capacity by single breath CO is also within normal limits. IMPRESSION: Grossly normal pulmonary function studies.
== END ==
PROVIDERS: PCP Internal Medicine; Referring Provider Internal Medicine; Visit Provider Internal Medicine
DX: J45.909 Unspecified asthma, uncomplicated (principal)
CPT/HCPCS: 94060; 94726; 94729

== ENCOUNTER → 2020-02-11 14:50 | Outpatient (CLI) | payer MEDICARE, SELFPAY ==
--- NOTE | 2020-02-11 15:00 | CT_ITS ---
STUDY: CT CHEST WITH CONTRAST REASON FOR EXAM: Female, 74 years old. COVID EXPOSURE -- WORSENING COUGH,SHORTNESS OF BREATH RADIATION DOSAGE (If Supplied By Facility): CTDIvol = ( 9.07 ) mGy, DLP = ( 260.58 ) mGycm TECHNIQUE: Transaxial imaging was performed following intravenous administration of IV 100ML ISOVUE 300. Individualized dose optimization techniques were used for this CT. COMPARISON: None. FINDINGS: Bilateral patchy groundglass opacities greater on the right than left consistent with subsegmental atelectasis or pneumonitis. Tiny bilateral pleural effusions. Normal heart and pericardium. Normal mediastinum. Normal hilar regions. Normal enhanced pulmonary arteries. Normal aorta arch and descending thoracic aorta. Normal osseous structures. There is no demonstrated abnormality of the visualized upper abdomen. CT/Chest WITH Contrast IMPRESSION: Bilateral subsegmental atelectasis or pneumonitis with tiny bilateral pleural effusions. Imaging features can be seen with Covid 19 pneumonia, though are nonspecific and can occur with a variety of infectious and noninfectious processes. Electronically Signed: Trae Adams MD at 16:07 EDT Tel , Service support ,
== END ==
PROVIDERS: PCP Internal Medicine; Visit Provider Internal Medicine
DX: R06.02 Shortness of breath (principal); J45.901 Unspecified asthma with (acute) exacerbation; Z20.828 Contact with and (suspected) exposure to other viral communicable diseases
CPT/HCPCS: 71260; Q9967

== ENCOUNTER → 2020-02-11 17:40 | Outpatient (CLI) | payer MEDICARE, SELFPAY ==
[2020-02-06 11:39] VITALS: BMI 28.6
== END ==
PROVIDERS: PCP Internal Medicine; Referring Provider Internal Medicine; Visit Provider Internal Medicine
DX: Z20.828 Contact with and (suspected) exposure to other viral communicable diseases (principal); R06.02 Shortness of breath; J45.901 Unspecified asthma with (acute) exacerbation
CPT/HCPCS: 71260; 87635; C9803; Q9967; U0003

== ENCOUNTER → 2020-03-14 16:14 | Outpatient (CLI) | payer MEDICARE, SELFPAY ==
[2020-03-11 15:35] VITALS: BMI 26.7
[2020-03-14 17:59] LABS: Anion Gap 5 (5-15); BUN 11 mg/dL (7-18); BUN/Creat Ratio 11.1 RATIO (10-20); Calcium,Total 9.6 mg/dL (8.5-10.1); Chloride 105 mmol/L (98-107); Creatinine, Serum 0.99 mg/dL (0.55-1.02); EST Glomerular Filtration Rate 58 mL/min (>60); Est Glom Filt Rate - Afr Amer 70 mL/min (>60); Glucose 143 mg/dL (74-106); Potassium 4.5 mmol/L (3.5-5.1); Sodium Level 142 mmol/L (136-145)
== END ==
PROVIDERS: PCP Internal Medicine; Referring Provider Internal Medicine; Visit Provider Internal Medicine
DX: I10 Essential (primary) hypertension (principal)
CPT/HCPCS: 36415; 80048

== ENCOUNTER → 2020-05-05 15:08 | Outpatient (CLI) | payer MEDICARE, SELFPAY ==
[2020-05-05 16:47] LABS: Absolute Lymphocyte Count 1.32 X10^3/uL (0.83-4.51); Absolute Neutrophil Count 2.8 X10^3/uL (2.0-7.7); Basophil# 0.03 X10^3/uL; Basophil% 0.6 % (0-1); Eosinophils% 4.2 % (0-5); Hematocrit 39.8 % (37-47); Hemoglobin 12.3 g/dL (12.0-15.0); Lymphocyte # 1.32 X10^3/ul (4.0); Lymphocyte % 27.4 % (19-41); Mean Corp Hgb Conc 30.9 g/dL (32-36); Mean Corpuscular Hgb 29.3 pg (27.0-32.0); Mean Corpuscular Volume 94.8 fL (81-99); Mean Platelet Vol. 10.8 fl (6.2-12.0); Monocyte# 0.44 X10^3/uL; Monocyte% 9.1 % (0-10); NRBC Flagged by Analyzer 0 % (0-5); Neutrophil # 2.81 X10^3/uL (2.7-7.7); Neutrophil % 58.5 % (47-70); Platelet Count 174 K/mm3 (150-450); RBC Distribution Width CV 11.7 % (11.6-14.6); RBC Distribution Width SD 40.6 fl (35.1-43.9); White Blood Count 4.8 K/mm3 (4.4-11.0)
[2020-05-05 16:55] LABS: Hemoglobin A1c 6.2 % (3.8-5.6)
[2020-05-05 17:01] LABS: AST(SGOT) 19 U/L (15-37); Alanine Aminotransfer ALT/SGPT 25 U/L (13-56); Albumin, Serum 3.6 g/dL (3.2-5.0); Alkaline Phosphatase 62 U/L (45-117); Anion Gap 5 (5-15); BUN 9 mg/dL (7-18); BUN/Creat Ratio 10.6 RATIO (10-20); Calcium,Total 9.2 mg/dL (8.5-10.1); Chloride 107 mmol/L (98-107); Creatinine, Serum 0.85 mg/dL (0.55-1.02); EST Glomerular Filtration Rate 70 mL/min (>60); Est Glom Filt Rate - Afr Amer 84 mL/min (>60); Globulin 3.5 g/dL (2.2-4.2); Glucose 91 mg/dL (74-106); Potassium 3.7 mmol/L (3.5-5.1); Protein, Total 7.1 g/dL (6.4-8.2); Sodium Level 142 mmol/L (136-145); T4 Free Direct 1.03 ng/dL (0.76-1.46); Thyroid Stim Hormone (TSH) 1.25 uIU/mL (0.358-3.74)
[2020-05-05 17:11] LABS: BNP,B-Type NATRIURETIC PEPTIDE 26.2 pg/mL (0-100)
== END ==
PROVIDERS: PCP Internal Medicine; Referring Provider Internal Medicine; Visit Provider Internal Medicine
DX: R06.02 Shortness of breath (principal); E11.9 Type 2 diabetes mellitus without complications; Z13.29 Encounter for screening for other suspected endocrine disorder
CPT/HCPCS: 36415; 80053; 83036; 83880; 84439; 84443; 85025

== ENCOUNTER → 2020-08-05 14:56 | Outpatient (CLI) | payer MEDICARE, SELFPAY ==
[2020-08-05 14:18] VITALS: BMI 28.9
[2020-08-05 17:03] LABS: Absolute Lymphocyte Count 1.34 X10^3/uL (0.83-4.51); Absolute Neutrophil Count 3.7 X10^3/uL (2.0-7.7); Basophil# 0.03 X10^3/uL; Basophil% 0.5 % (0-1); Eosinophil# 0.21 X10^3/uL; Eosinophils% 3.7 % (0-5); Hematocrit 39.3 % (37-47); Hemoglobin 11.9 g/dL (12.0-15.0); Lymphocyte # 1.34 X10^3/ul (4.0); Lymphocyte % 23.5 % (19-41); Mean Corp Hgb Conc 30.3 g/dL (32-36); Mean Corpuscular Hgb 28.2 pg (27.0-32.0); Mean Corpuscular Volume 93.1 fL (81-99); Mean Platelet Vol. 10.5 fl (6.2-12.0); Monocyte# 0.41 X10^3/uL; Monocyte% 7.2 % (0-10); NRBC Flagged by Analyzer 0 % (0-5); Neutrophil % 64.7 % (47-70); Platelet Count 194 K/mm3 (150-450); RBC Distribution Width CV 11.8 % (11.6-14.6); Red Blood Count 4.22 M/mm3 (4.2-5.4); White Blood Count 5.7 K/mm3 (4.4-11.0)
[2020-08-05 17:12] LABS: AST(SGOT) 17 U/L (15-37); Alanine Aminotransfer ALT/SGPT 25 U/L (13-56); Albumin, Serum 3.4 g/dL (3.2-5.0); Alkaline Phosphatase 62 U/L (45-117); Anion Gap 6 (5-15); BUN 11 mg/dL (7-18); BUN/Creat Ratio 11.8 RATIO (10-20); Calcium,Total 9.1 mg/dL (8.5-10.1); Chloride 105 mmol/L (98-107); Creatinine, Serum 0.94 mg/dL (0.55-1.02); EST Glomerular Filtration Rate 62 mL/min (>60); Est Glom Filt Rate - Afr Amer 75 mL/min (>60); Globulin 3.3 g/dL (2.2-4.2); Glucose 168 mg/dL (74-106); Protein, Total 6.7 g/dL (6.4-8.2); Sodium Level 139 mmol/L (136-145)
== END ==
PROVIDERS: PCP Internal Medicine; Referring Provider Internal Medicine; Visit Provider Internal Medicine
DX: E11.9 Type 2 diabetes mellitus without complications (principal); I10 Essential (primary) hypertension
CPT/HCPCS: 36415; 80053; 85025

== ENCOUNTER 2025-03-26 19:15 | Emergency (ER) | payer MEDICARE, SELFPAY ==
[2025-03-26 19:17] VITALS: BP 172/72; PULSE 68; RESP 15; TEMP 36.4; O2SAT 100; BMI 28.0
--- NOTE | 2025-03-26 19:43 | EX.ED.VIS.EY ---
HPI History of Present Illness Chief Complaint: Eye Problem Detail of Chief Complaint: Right eye is giving her problems since 1500 Informant: patient Onset/Context/Timing Location: Right Eye Onset: Today Context: Sudden Onset Timing: Intermittent Current Severity: Discomfort because her eye closes and spasms Maximum Severity: Severe Worsened by: Nothing Relieved by: Nothing Associated Symptoms Associated Symptoms - Eyes: Negative for Burning, Crusting, Drainage, Eyelid swelling, Foreign body sensation, Itching, Matting, Pain, Photophobia or Redness History of injury: No Visual correction: Glasses Narrative Narrative: Patient is an 80-year-old woman. She is visiting her sister from [place]. She sees Dr. Olivier who is an agricultural chemist affiliated with [facility]. She denies double vision, blurred vision loss of vision. She states her eyelid feels like it is fluttering and closes down. She does not have history of myasthenia gravis. She denies diplopia at night. She denied drooping of her eyelid prior to tonight. She does have history of hyperlipidemia, hypertension, diabetes type 2, asthma and angioedema. Prior similar symptoms: No Recent Illness/Hospitalization: No [facility], [facility] Medical History (Updated 03/26/25 @ 19:[address] Thiago Son MD) Cataracts, both eyes Fatigue Shoulder pain SOB (shortness of breath) Osteoarthritis Degenerative disc disease History of blood clots Scoliosis PAD (peripheral artery disease) Diabetes Hypertension Hyperlipemia Neuropathy History of TIA (transient ischemic attack) Chronic back pain Asthma Arthritis Seasonal allergies Home Medications ?Medication ?Instructions ?Recorded ?Last Taken ?Type calcium 250 mg (phosphate)-vit D3 1 ea PO BID 11/01/16 Unknown History 12.5 mcg (500 unit) chewable tablet fish oil-dha-epa 1,200 mg-144 2 ea PO BID 11/01/16 Unknown History mg-216 mg capsule diclofenac sodium 1 % topical gel 100 gm TP PRN PRN Pain 05/16/17 Unknown History albuterol sulfate 90 mcg/actuation 1 - 2 puff inhalation Q4H PRN PRN 12/29/18 Unknown Rx aerosol inhaler Sob &/Or Wheezing 3 months #8.5 grams blood sugar diagnostic (Accu-Chek #100 ea 05/14/19 Unknown Rx Guide test strips) lancets (Accu-Chek Softclix #200 ea 05/14/19 Unknown Rx Lancets) diclofennac 3/gabapetin 6/lidocain topical 05/22/19 Unknown History 4% doxazosin 2 mg tablet 2 mg PO BID #30 tabs 10/18/19 Unknown Rx tramadol 50 mg tablet 50 mg PO TID PRN pain #42 tabs 02/01/20 Unknown Rx famotidine 40 mg tablet 40 mg PO DAILY #60 tabs 02/12/20 Unknown Rx albuterol sulfate 2.5 mg/3 mL 2.5 mg (3 mL) inhalation Q6H PRN 02/15/20 Unknown Rx (0.083 %) solution for nebulization shortness of breath or wheezing #90 mL nebulizer accessories #1 ea 02/15/20 Unknown Rx nebulizers #1 ea 02/15/20 Unknown Rx Handicap Placard #1 ea 04/15/20 Unknown Rx blood sugar diagnostic (Accu-Chek #100 ea 06/20/20 Unknown Rx Marycarmen Plus test strips) amlodipine 5 mg tablet 5 mg PO DAILY #90 tabs 06/24/20 Unknown Rx indapamide 1.25 mg tablet 1.25 mg PO DAILY #90 tabs 06/24/20 Unknown Rx montelukast 10 mg tablet 10 mg PO QHS #90 tabs 07/29/20 Unknown Rx gabapentin 400 mg capsule 400 mg PO TID 2 months #180 caps 08/12/20 Unknown Rx potassium chloride 20 mEq See Rx Instructions .Route 10/06/20 Unknown Rx tablet,extended release(part/cryst) .COMPLEX #360 tabs fluticasone furoate 200 1 ea inhalation DAILY 2 months #60 12/12/20 Unknown Rx mcg-vilanterol 25 mcg/dose ea inhalation powder estradiol 1 mg tablet 1 mg PO DAILY #90 tabs 05/13/21 Unknown Rx Allergy/AdvReac Type Severity Reaction Status Date / Time lisinopril Allergy Severe swelling Verified 03/26/25 19:18 aspirin Allergy Shortness Verified 03/26/25 19:18 of breath latex Allergy Rash Verified 03/26/25 19:18 Penicillins Allergy Rash Verified 03/26/25 19:18 Sulfa (Sulfonamide Allergy Hives Verified 03/26/25 19:18 Antibiotics) Family History Other Alcoholism Arthritis Asthma Diabetes Heart disease Hypertension Myocardial infarction Surgical History History of right cataract extraction History of laparoscopy History of back surgery History of partial hysterectomy Social History Smoking Status: Never smoker Tobacco: How many years used: 10 alcohol intake: never substance use type: does not use what type of physical activity do you participate in: weight training and other details: silver sneakers frequency: 1-2 times per week ROS ROS ED Constitutional Constitutional ED: Denies chills, fever(s), subjective, sweats or weight loss Eyes Eyes: Reports other Details: Involuntary closing of the right eyelids ; Denies blurry vision, change in vision or diplopia ENT ENT ED: Denies ear pain, rhinorrhea or sore throat Cardiovascular Cardiovascular: Denies chest pain, palpitations or racing heartbeat Integumentary Denies rash Neurologic Neurologic: Denies headache(s), paresthesias or weakness Hematologic/Lymphatic Hematologic/Lymphatic: Denies easy bleeding or easy bruising EXAM Physical Exam Const Vital Signs: 03/26/25 19:17 Temperature 97.6 F L Temperature Source Temporal Pulse Rate 68 Respiratory Rate 15 Blood Pressure 172/72 H Blood Pressure Mean 105 Pulse Ox 100 Oxygen Delivery Method Room Air Positive well nourished and well developed General Appearance ED: well developed and NAD HEENT HEENT Narrative: Head is atraumatic normocephalic. Ears normal. Nares patent. Posterior pharynx is normal. Uvula midline. No deviation of protrusion. No herpetic lesions to suggest herpes varicella zoster. There is no hyperesthesia noted right side of the forehead and maxillary region. Eyes Eyes Narrative: Pupils equal round reactive. Extract muscle intact. Visual acuity is slightly AB normal. She may have a ptosis on the right. There also may be what appears to be spasms. There is no nystagmus with lateral gaze. She has no photophobia to direct or consensual light. There is no preauricular lymphadenopathy. Because there was concern possibly for ptosis cold glove test was performed. This did not improve her symptoms. Suspect she is having blepharitis/spasms. Neck no lymphadenopathy, supple and no JVD Neck Narrative: No preauricular lymphadenopathy. Resp normal respiratory effort Cardio regular rate and regular rhythm Neuro oriented x3 and CN's II-XII intact bilaterally Sensorium / Orientation: alert Psych Psych Narrative: Normal mood and affect Skin no wounds Lesions: no lesions Rashes: no rashes MDM MDM MDM Narrative Medical decision making narrative: Differential diagnosis is blepharospasm, myasthenia gravis or some other neurologic symptom. Since patient did not improve with cold glove/ice test suspect this is blepharospasm. She was informed to follow-up with Dr. Olivier her agricultural chemist since treatment is Botox injection. Recent outpatient visit to Dr. Mccarthy for her hearing and Dr. Hamilton johnston for her foot. Discharge Plan Triage Chief Complaint: Eye Problem ED Provider: Thiago Son Dx/Rx/DC Orders Clinical Impression: Blepharospasm of right eye, Type 2 diabetes mellitus, Hypertension, Hyperlipemia Instructions: Eye Twitching Prescriptions: No Action albuterol sulfate 90 mcg/actuation HFA aerosol inhaler 1 - 2 puff Inhalation Q4H PRN PRN (Reason: Sob &/Or Wheezing) 90 Days Qty: 8.5 1RF diclofennac 3/gabapetin 6/lidocain 4% TOPICAL fish oil-dha-epa 1 EACH capsule 2 ea PO BID calcium phosphate-vitamin D3 1 EACH tablet,chewable 1 ea PO BID diclofenac sodium 100 GM gel 100 gm TP PRN PRN (Reason: Pain) (DME) lancets [Accu-Chek Softclix Lancets] Misc See Rx Instructions .ROUTE .MEDSUPPLY Qty: 200 3RF Rx Instructions: As directed (DME) Accu-Chek Guide test strips Strip See Rx Instructions .ROUTE .MEDSUPPLY Qty: 100 3RF Rx Instructions: As directed doxazosin 2 mg tablet 2 mg PO BID Qty: 30 0RF tramadol 50 mg tablet 50 mg PO TID PRN (Reason: pain) Qty: 42 0RF famotidine 40 mg tablet 40 mg PO DAILY Qty: 60 0RF albuterol sulfate 2.5 mg /3 mL (0.083 %) solution for nebulization 2.5 mg INHALATION Q6H PRN (Reason: shortness of breath or wheezing) Qty: 90 2RF (DME) nebulizer accessories Kit See Rx Instructions .ROUTE .MEDSUPPLY Qty: 1 0RF Rx Instructions: As directed (DME) nebulizers Misc See Rx Instructions .ROUTE .MEDSUPPLY Qty: 1 0RF Rx Instructions: As directed (DME) Handicap Placard See Rx Instructions .ROUTE .MEDSUPPLY Qty: 1 0RF Rx Instructions: As directed, length of time 3 years (DME) Accu-Chek Marycarmen Plus test strp Strip See Rx Instructions .ROUTE .MEDSUPPLY Qty: 100 3RF Rx Instructions: As directed, check daily for type 2 DM amlodipine 5 mg tablet 5 mg PO DAILY Qty: 90 3RF indapamide 1.25 mg tablet 1.25 mg PO DAILY Qty: 90 3RF montelukast 10 mg tablet 10 mg PO QHS Qty: 90 3RF gabapentin 400 mg capsule 400 mg PO TID 60 Days Qty: 180 3RF potassium chloride 20 mEq tablet,ER particles/crystals See Rx Instructions .ROUTE .COMPLEX Qty: 360 0RF Dose Instruction: Take 2 tablets by mouth twice daily Rx Instructions: Take 2 tablets by mouth twice daily fluticasone furoate-vilanterol 200-25 mcg/dose blister with device 1 ea INHALATION DAILY 60 Days Qty: 60 3RF estradiol 1 mg tablet 1 mg PO DAILY Qty: 90 2RF Primary Care Provider: Jeremiah Ha,Out of Referrals: Jeremiah Doctor,Out of [Primary Care Provider, Medical] Activity Restrictions/Additional Instructions: You need to follow-up with your agricultural chemist Dr. Olivier at [facility]. Print Language: French Disposition Disposition: Home, Self Care
[2025-03-26 20:08] VITALS: BP 162/70; PULSE 74; RESP 18; TEMP 36.7; O2SAT 96
--- OUTSIDE RECORDS SUMMARY | 2025-03-26 20:11 | XMS RPT_ITS | CCD ---
Author Organization [facility] Care Team Providers Care Vegetable Scullion Name Role Phone Genesis LANDRY, Jewell Knowles Unavailable [phone] RENNY Hutton RN, Robert Olga Unavailable Unavailabl e RENNY Hutton RN, Robert Olga Unavailable Unavailabl e Unavailable Primary Care Provider Unavailabl zachariah Bueno MD, Nkosi Primary Care Provider Ximena LANDRY, Nkosi Primary Care Provider Ximena LANDRY, Robertoosi Primary Care Provider [phone] Ximena LANDRY, Nkosi Primary Care Provider Ximena LANDRY, Nkosi Primary Care Provider YANNA FELIZ Attending Unavailable XIMENA, NKOSI Primary Care Unavailable YANNA FELIZ Attending Unavailable XIMENA, NKOSI Referring Unavailable XIMENA, NKOSI Primary Care Unavailable DUSTIN CAMPOS Attending Unavailable XIMENA, NKOSI Primary Care Unavailable XIMENA, NKOSI Primary Care Unavailable XIMENA, NKOSI Primary Care Unavailable KALIN ESPOSITO Referring Unavailable MARCIAL BROOKS Attending Unavailable XIMENA, NKOSI Primary Care Unavailable XIMENA, NKOSI Referring Unavailable CHARAN DUKES Attending Unavailable XIMENA, NKOSI Primary Care Unavailable XIMENA, NKOSI Attending Unavailable XIMENA, NKOSI Primary Care Unavailable MARCIAL BROOKS Referring Unavailable XIMENA, NKOSI Primary Care Unavailable KATYA MARTINEZ Attending Unavailable XIMENA, NKOSI Primary Care Unavailable KATYA MARTINEZ Attending Unavailable XIMENA, NKOSI Primary Care Unavailable SYDNEE LEAVITT Attending Unavailable XIMENA, NKOSI Primary Care Unavailable KATYA MARTINEZ Attending Unavailable XIMENA, NKOSI Primary Care Unavailable KALIN ESPOSITO Attending Unavailable XIMENA, NKOSI Primary Care Unavailable XIMENA, NKOSI Attending Unavailable XIMENA, NKOSI Primary Care Unavailable SELF Referring Unavailable FORKAPA, ARVIND Attending Unavailable XIMENA, NKOSI Primary Care Unavailable EVANKALIN RAMOS Attending Unavailable XIMENA, NKOSI Primary Care Unavailable SELF Referring Unavailable FORKAPA ARVIND Attending Unavailable XIMENA, NKOSI Primary Care Unavailable XIMENA, NKOSI Referring Unavailable XIMENA, NKOSI Primary Care Unavailable DAPOZ ASHLEY Attending Unavailable XIMENA, NKOSI Primary Care Unavailable XIMENA, NKOSI Referring Unavailable SELF Referring Unavailable XIMENA, NKOSI Primary Care Unavailable XIMENA, NKOSI Attending Unavailable XIMENA, NKOSI Primary Care Unavailable CHUCK ESCOBAR Attending Unavailable XIMENA, NKOSI Primary Care Unavailable XIMENA, NKOSI Referring Unavailable XIMENA, NKOSI Primary Care Unavailable FORKAPA, ARVIND Attending Unavailable XIMENA, NKOSI Primary Care Unavailable MARCIAL BROOKS Referring Unavailable BO VALVERDE Attending Unavailable XIMENA, NKOSI Primary Care Unavailable XIMENA, NKOSI Attending Unavailable XIMENA, NKOSI Primary Care Unavailable DAPOZ, ASHLEY Attending Unavailable XIMENA, NKOSI Primary Care Unavailable KALIN ESPOSITO Referring Unavailable KALIN ESPOSITO Attending Unavailable XIMENA, NKOSI Primary Care Unavailable DAPOZ, ASHLEY Attending Unavailable XIMENA, NKOSI Primary Care Unavailable SHARMILA FERNANDEZ Attending Unavailable XIMENA, NKOSI Primary Care Unavailable KALIN ESPOSITO Referring Unavailable KALIN ESPOSITO Attending Unavailable Allergies Allergy Classification Reported Allergen(s) Allergy Type Date of Onset Reaction(s) Facility Angiotensin Converting Enzyme (ENZO) Inhibitors (8 sources) Lisinopril Drug Allergy 07-18-19 19 Swelling [facility] Anti-Epileptic Agents (2 sources) OXcarbazepine Drug Allergy 01-22-20 23 Other: See Comments [facility] Work Phone: Aspirin (8 sources) Aspirin Drug Allergy 03-17-20 15 Shortness of Breath [facility] Latex (8 sources) Latex Substance Allergy 03-17-20 15 Rash [facility] Penicillins (antibiotic) (8 sources) Penicillins Drug Allergy 03-17-20 15 Hives, Rash [facility] Sulfonamides (antibiotic) (8 sources) Sulfamethoxazole Drug Allergy 03-17-20 15 Hives [facility] (20 sources) Latex; Translations: [LATEX] drug allergy 03-17-20 15 Rash [facility] Work Phone: (3 sources) penicillin g drug allergy 03-17-20 15 hives [facility] Work Phone: [phone] (20 sources) sulfamethoxazole; Translations: [SULFAMETHOXAZOLE] drug allergy 03-17-20 15 Hives [facility] Work Phone: (3 sources) ASPRIN drug allergy 03-17-20 15 [facility] Work Phone: [phone] (20 sources) Aspirin; Translations: [ASPIRIN] Drug Allergy 03-17-20 15 Shortness of Breath [facility] (20 sources) Lisinopril; Translations: [LISINOPRIL] Drug Allergy 07-18-19 19 Swelling [facility] (20 sources) Penicillins; Translations: [PENICILLINS] Drug Allergy 03-17-20 15 Hives, [facility] (20 sources) Penicillins Drug Allergy 03-17-20 15 Hives, [facility] (20 sources) OXcarbazepine; Translations: [OXCARBAZEPINE] Drug Allergy 01-22-20 23 Other: See Comments [facility] Work Phone: (20 sources) Penicillins Drug Allergy 03-17-20 15 Hives, [facility] Medications Current Medications Medication Drug Class(es) Dates Sig (Normalized) Sig (Original) albuterol 0.83 mg/ml inhalation solution (20 sources) beta2-Adrenergic Agonist Start: 03-13-2024 albuterol (PROVENTIL) 2.5 mg /3 mL (0.083 %) nebulizer solution Indications: Mild persistent asthma without complication (HCC) Use 3 mL via nebulizer every 4 hours as needed for wheezing/shortness of breath. 88 mL 1 03/13/2024 Active Start: 03-12-2024 End: 03-13-2024 take 2.5 mg by inhalation every four hours as needed albuterol (PROVENTIL) 5 mg/mL nebu Inhale 0.5 mL as instructed every 4 hours as needed for wheezing/shortness of breath. 20 mL 1 03/12/2024 03/13/2024 Discontinued Start: 02-10-2021 End: 03-12-2024 take 2 puff(s) by inhalation every four hours as needed for wheezing albuterol HFA (VENTOLIN HFA) 90 mcg/actuation inhaler Inhale 2 Puffs as instructed every 4 hours as needed for wheezing/shortness of breath. 18 g 4 03/12/2024 Active Comment on above: Inhale 2 Puffs as in structed every 4 hours as needed for wheezing/shortness of breath. ALPRAZolam 0.5 mg disintegrating oral tablet (6 sources) Benzodiazepine Start: 11-19-2024 End: 11-19-2024 ALPRAZolam 0.5 mg dissolvable tablet Indications: ACUTE PROCEDURE-RELATED ANXIETY BRING 2 TABLETS TO PROCEDURE LOCATION ON THE DAY OF PROCEDURE, TO BE ADMINISTERED BY STAFF 2 tablet 11/19/2024 11/19/2024 Active Start: 05-08-2024 End: 05-08-2024 ALPRAZolam 0.5 mg dissolvabl e tablet Indications: ACUTE PROCEDURE-RELATED ANXIETY BRING 2 TABLETS TO PROCEDURE LOCATION ON THE DAY OF PROCEDURE, TO BE ADMINISTERED BY STAFF 2 tablet 05/08/2024 05/08/2024 Active Start: 10-10-2023 End: 10-10-2023 ALPRAZolam 0.5 mg dissolvabl e tablet Indications: ACUTE PROCEDURE-RELATED ANXIETY BRING 2 TABLETS TO PROCEDURE LOCATION ON THE DAY OF PROCEDURE, TO BE ADMINISTERED BY STAFF 2 tablet 0 10/10/2023 10/10/2023 amLODIPine 10 mg oral tablet (20 sources) Dihydropyridine Calcium Channel Omero Start: 09-13-2022 End: 12-04-2024 take 1 tablet by mouth once daily amLODIPine (NORVASC) 10 mg tablet Indications: Hypertension, essential Take 1 tablet by mouth once daily 90 tablet 12/04/2024 Active Start: 09-08-2021 End: 03-04-2022 take 1 tablet by mouth once daily amLODIPine (NORVASC) 10 mg tablet Indications: Hypertension, essential Take 1 tablet by mouth once daily 90 tablet 1 03/04/2022 Active Start: 10-04-2020 End: 09-08-2021 take 1 tablet by mouth once daily amLODIPine (NORVASC) 5 mg tablet Take 1 tablet by mouth once daily. 90 tablet 2 06/30/2021 09/08/2021 Discontinued Start: 03-17-2015 take 1 tablet by alex th once daily AMLODIPINE BESYLATE 5 MG TABS One tablet by mouth daily AMLODIPINE BESYLATE [id number] Ashely Grace, Comment on above: Take 5 mg by mouth o nce daily. Take 1 tablet by alex th once daily. Take 1 tablet by alex th once daily ascorbic acid 500 mg oral tablet (20 sources) Vitamin C take 1 tablet by mouth once daily ascorbic acid, vitamin C, (VITAMIN C) 500 mg tablet 1 tab(s) orally once a day for 30 day(s) Active Comment on above: 1 tab(s) orally once a day for 30 day(s) benoxinate hydrochloride 4 mg/ml / fluorescein sodium 3 mg/ml ophthalmic solution (2 sources) Diagnostic Dye Start: 01-20-2024 End: 01-20-2024 fluorescein-benox inate 0.3-0.4 % 1 Drop (FLURESS) Start: 01-20-2024 End: 01-20-2024 1 Drop, BOTH EYES, DIRECT ED, Starting on Tue01/20/24 at 0830, Until Tue01/20/24 at 2028, Administer for applanation tonometry. In the event of a Fluress shortage, administer Tamra-Fluor 1 drop into both eyes as directed for applanation tonometry, OPHT CLINIC MED ORDERS betamethasone 0.0005 mg/mg topical ointment (20 sources) Corticosteroid Start: 07-26-2022 betamethasone dipropionate 0.05 % ointment Indications: Eczema of both external ears Apply to affected area twice daily. 15 g 1 07/26/2022 Active Comment on above: Apply to affected ar ea twice daily. Blood-Glucose Sensor (FREESTYLE LINDA 2 PLUS SENSOR) bronson (2 sources) Start: 01-07-2025 Blood-Glucose Sensor (FREESTYLE LINDA 2 PLUS SENSOR) bronson Indications: Type 2 diabetes mellitus with peripheral neuropathy (HCC) Use as directed to check blood sugar 3 times daily 2 each 2 01/07/2025 Active citalopram 20 mg oral tablet (20 sources) Serotonin Reuptake Inhibitor Start: 05-18-2023 End: 07-06-2024 take 1 tablet by mouth once daily citalopram (CELEXA) 20 mg tablet Indications: Hot flashes Take 1 tablet by mouth once daily 90 tablet 1 07/06/2024 Active Start: 08-28-2021 End: 08-24-2022 take 1 tablet by mouth once daily citalopram (CELEXA) 20 mg tablet Indications: Hot flashes Take 1 tablet by mouth once daily 90 tablet 2 08/24/2022 Active Comment on above: Take 1 tablet by alex th once daily. Take 1 tablet by alex th once daily 12 hr dextromethorphan hydrobromide 30 mg / guaiFENesin 600 mg extended release oral tablet (1 source) Uncompetitive N-yfjqpw-E-aspartate Receptor Antagonist, Sigma-1 Agonist Start: End: take 1 tablet by mouth twice daily dextromethorphan-g uaiFENesin (MUCINEX DM) 30-600 mg per tablet Indications: Acute cough Take 1 tablet by mouth two times a day for 7 days. 14 tablet 11/20/2024 11/27/2024 Active flash glucose scanning reader (Mode DiagnosticsYLE LINDA 2 READER) (2 sources) Start: flash glucose scanning reader (FREESTYLE LINDA 2 READER) Indications: Type 2 diabetes mellitus with peripheral neuropathy (HCC) Use as directed to check blood glucose 3 times daily 1 each 01/07/2025 Active fluticasone / salmeterol (20 sources) Corticosteroid, beta2-Adrenergic Agonist Start: take 1 puff(s) by inhalation twice daily fluticasone-salmet otto (WIXELA INHUB) 500-50 mcg/dose dsdv Indications: Mild persistent asthma without complication (HCC) Inhale 1 Puff as instructed two times a day. 180 Each 2 03/29/2024 Active Start: 03-29-2024 take 1 puff(s) by in halation twice daily fluticasone-salmeterol (WIXELA INHUB) 500-50 mcg/dose dsdv Indications: Mild persistent asthma without complication Inhale 1 Puff as instructed two times a day. 180 Each 2 03/29/2024 Active Start: 03-26-2024 take 1 puff(s) by in halation twice daily fluticasone-salmeterol (WIXELA INHUB) 500-50 mcg/dose dsdv Indications: Mild persistent asthma without complication Inhale 1 Puff as instructed two times a day. 180 Each 2 03/26/2024 Active Start: 03-17-2015 End: 10-11-2016 ADVAIR DISKUS 250-50 MCG/DOS E AEPB 1 puff daily FLUTICASONE-SALMETEROL [id number] Robert Hutton RN RN Start: 03-17-2015 ADVAIR DISKUS 250-50 MCG/DOSE AEPB 1 puff daily FLUTICASONE-SALMETEROL [id number] Ashely Grace DO gabapentin 600 mg oral tablet (20 sources) Anti-epileptic Agent Start: 09-19-2021 End: 09-11-2021 take 1 tablet by mouth three times daily gabapentin (NEURONTIN) 800 mg tablet Take 1 tablet by mouth three times daily for 90 days. Do not start before September 19, 2021. 270 tablet 1 09/19/2021 09/11/2021 Discontinued Start: 09-19-2021 End: 12-18-2021 take 1 tablet by mouth three times daily gabapentin (NEURONTIN) 800 mg tablet Take 1 tablet by mouth three times daily for 90 days. Do not start before September 19, 2021. 270 tablet 1 09/19/2021 12/18/2021 Active Start: 08-20-2021 End: 01-05-2023 take 1 tablet by mouth three times daily gabapentin (NEURONTIN) 600 mg tablet Indications: Lumbar radiculopathy Take 1 tablet by mouth three times daily for 180 days. 270 tablet 1 07/09/2022 01/05/2023 Active Start: 10-13-2020 End: 10-27-2021 take 1 capsule by mouth three times daily gabapentin (NEURONTIN) 400 mg capsule Indications: Lumbar radiculopathy , Post laminectomy syndrome , Lumbar spondylosis Take 1 capsule by mouth three times daily for 180 days. 270 capsule 1 04/30/2021 06/26/2021 Discontinued Start: 03-17-2015 take 2 capsules by m outh in the morning, then take 3 capsules by mouth at bedtime GABAPENTIN 100 MG CAPS 2 po in AM and noon then 3 at bedtime GABAPENTIN [id number] Tai Beal Comment on above: Take 400 mg by mouth three times daily. Take 1 capsule by mo [facility] three times daily for 180 days. Take 1 tablet by alex three times daily for 90 days. Do not start before September 19, 2021. Take 1 tablet by alex three times daily for 30 days. Take 1 tablet by alex three times daily for 180 days. Take 1 tablet by alex three times daily for 180 days. Do not start before March 10, 2022. indapamide 2.5 mg oral tablet (20 sources) Thiazide-like Diuretic Start: 05-07-2024 End: 02-02-2025 take 1 tablet by mouth once daily indapamide (LOZOL) 2.5 mg tablet Indications: Hypertension, essential Take 1 tablet by mouth once daily 90 tablet 3 08/06/2024 02/02/2025 Active Start: 04-27-2022 End: 01-15-2024 take 1 tablet by mouth once daily indapamide (LOZOL) 2.5 mg tablet Indications: Hypertension, essential Take 1 tablet by mouth once daily. 90 tablet 1 07/19/2023 Active Start: 08-28-2021 End: 01-25-2022 take 1 tablet by mouth once daily indapamide (LOZOL) 2.5 mg tablet Indications: Hypertension, essential Take 1 tablet by mouth once daily. 90 tablet 1 10/27/2021 Active Start: 10-04-2020 End: 08-28-2021 take 1 tablet by mouth once daily indapamide (LOZOL) 1.25 mg tablet Take 1 tablet by mouth once daily. 90 tablet 2 06/30/2021 08/28/2021 Discontinued Start: 05-29-2015 take 1 tablet by alex once daily INDAPAMIDE 1.25 MG TABS 1 po daily INDAPAMIDE [id number] Ashely Grace, DO Comment on above: 1.2 mg. Take 1 tablet by alex once daily. Take 1 tablet by alex th once daily isopropyl alcohol 0.7 ml/ml medicated pad (2 sources) Start: 01-08-20 25 alcohol swabs Use with blood glucose test once daily 100 each 5 01/07/2025 Active iv contrast (will be provided with radiology test) (1 source) Start: 11-16-19 End: 11-17-19 inject 1 dose intravenously once iv contrast (will be provided with radiology test) MRI Brain Inject, intravenously, once for 1 dose.No IV access, insert saline lock prior to beginning of sedation, infusion, injection of imaging exam.Discontinue saline lock post exam. If Pt. has a central line or IVAD, may access for administration according to line specific nursing protocol.Once exam is complete flush line and de-access according to line specific nursing protocol in the MR contrast administration guidelines link 1 each 11/15/2024 11/16/2024 Active losartan potassium 100 mg oral tablet (20 sources) Angiotensin 2 Receptor Omero Start: 04-11-20 End: 08-07-19 take 1 tablet by mouth once daily losartan (COZAAR) 100 mg tablet Indications: Primary hypertension Take 1 tablet by mouth once daily. 90 tablet 2 08/06/2024 Active Start: 05-30-2023 End: 04-11-2024 take 1 tablet by mouth once daily losartan (COZAAR) 50 mg tablet Take 1 tablet by mouth once daily 90 tablet 2 03/21/2024 04/11/2024 Discontinued Start: 11-19-2022 End: 05-30-2023 take 1 tablet by mouth once daily losartan (COZAAR) 25 mg tablet Take 1 tablet by mouth once daily. 90 tablet 3 01/06/2023 05/30/2023 Discontinued Comment on above: Take 1 tablet by alex th once daily. Take 1 tablet by alex th once daily 24 hr metFORMIN hydrochloride 500 mg extended release oral tablet (20 sources) Biguanide Start: 10-13-19 take 2 tablets by mouth once daily at breakfast metFORMIN ER (GLUCOPHAGE XR) 500 mg 24 hr tablet Indications: Type 2 diabetes mellitus 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) Take 2 tablets by mouth daily with breakfast. 180 tablet 1 10/12/2024 Active 24 hr mirabegron 25 mg extended release oral tablet (6 sources) beta3-Adrenergic Agonist Start: 05-03-19 End: 06-30-19 take 1 tablet by mouth once daily mirabegron (MYRBETRIQ) 25 mg Tb24 Take 1 tablet by mouth once daily. 30 tablet 1 05/03/2022 06/29/2022 Discontinued (Cost of medication) Comment on above: Take 1 tablet by alex th once daily. montelukast 10 mg oral tablet (20 sources) Leukotriene Receptor Antagonist Start: 08-24-19 End: 01-01-20 take 1 tablet by mouth once daily at bedtime montelukast (SINGULAIR) 10 mg tablet TAKE 1 TABLET BY MOUTH ONCE DAILY AT BEDTIME 90 tablet 12/31/2024 Active Start: 07-30-2020 End: 08-21-2021 montelukast (SINGULAIR) 10 m g tablet Start: 03-17-2015 take 1 tablet by alex th once daily MONTELUKAST SODIUM 10 MG TABS One tablet by mouth daily MONTELUKAST SODIUM [id number] Ashely Grace DO Comment on above: Take 1 tablet by alex th daily at bedtime. TAKE 1 TABLET BY ALEX TH ONCE DAILY AT BEDTIME OXcarbazepine 300 mg oral tablet (5 sources) Anti-epileptic Agent Start: 3 End: 3 take 1 tablet by mouth twice daily OXcarbazepine (TRILEPTAL) 300 mg tablet Indications: Trigeminal neuralgia Take 1 tablet by mouth twice daily. 60 tablet 0 11/30/2022 12/20/2022 Discontinued Comment on above: Take 1 tablet by alex th twice daily. perflutren lipid microspheres 1.3 mL in NaCl (PF) 0.9% 10 mL injection (DEFINITY) (20 sources) Start: 1 End: 3 perflutren lipid microspheres 1.3 mL in NaCl (PF) 0.9% 10 mL injection (DEFINITY) phenylephrine hydrochloride 25 mg/ml ophthalmic solution (4 sources) alpha-1 Adrenergic Agonist Start: 5 End: 5 PHENYLephrine 2.5 % 1 drop (AK-DILATE, REGI-SYNEPHRINE) Start: 11-09-2024 End: 11-10-2024 1 drop, BOTH EYES, DIRECT ED, Starting on 11/09/24 at 1530, Until 11/10/24 at 0329, Administer for dilation PROTECT FROM LIGHT Start: 01-20-2024 End: 01-20-2024 PHENYLephrine 2.5 % 1 Drop ( AK-DILATE, REGI-SYNEPHRINE) Start: 01-20-2024 End: 01-20-2024 1 Drop, BOTH EYES, DIRECT ED, Starting on Tue01/20/24 at 0830, Until Tue01/20/24 at 2028, Administer for dilation PROTECT FROM LIGHT, OPHT CLINIC MED ORDERS potassium chloride 20 meq extended release oral tablet (20 sources) Start: 05-19-2023 End: 12-04-2024 take 2 tablets by mouth twice daily potassium chloride 20 mEq TbER Indications: Hypokalemia , Primary hypertension Take 2 tablets by mouth twice daily 360 tablet 12/04/2024 Active Start: 01-18-2022 End: 02-14-2023 take 2 tablets by mouth twice daily potassium chloride 20 mEq TbER Indications: Hypokalemia , Primary hypertension Take 2 tablets by mouth twice daily 360 tablet 0 02/14/2023 Active Start: 01-05-2021 End: 02-13-2021 take 2 tablets by mouth twice daily potassium chloride 20 mEq TbER Indications: Hypokalemia Take 2 tablets by mouth twice daily. 360 tablet 4 02/13/2021 Active Start: 10-06-2020 take 2 tablets by [facility] twice daily potassium chloride 20 mEq TbER Take 2 tablets by mouth twice daily. 0 10/06/2020 Active Start: 03-17-2015 take 2 tablets by [facility] twice daily POTASSIUM CHLORIDE ER 20 MEQ CR-TABS 2 po twice daily POTASSIUM CHLORIDE [id number] Ashely Grace, DO Comment on above: Take 2 tablets by [facility] twice daily. Take 2 tablets by [facility] twice daily predniSONE 10 mg oral tablet (3 sources) Start: 09-19-2024 End: 09-28-2024 take 1 tablet by mouth three times daily, then take 1 tablet by mouth twice daily, then take 1 tablet by mouth once daily predniSONE (DELTASONE) 10 mg tablet Indications: Chronic pain of right knee , Synovial cyst of right popliteal space , Primary osteoarthritis of right knee Take 1 tablet by mouth three times a day for 3 days, THEN 1 tablet two times a day for 3 days, THEN 1 tablet once daily for 3 days. 18 tablet 09/19/2024 09/28/2024 Active Start: 09-29-2021 End: 10-06-2021 take 1 tablet by mouth once daily predniSONE (DELTASONE) 50 mg Indications: acute inflammation Take 1 tablet by mouth once daily for 7 days. 7 tablet 0 09/29/2021 10/06/2021 Active Comment on above: Take 1 tablet by alex once daily for 7 days. pregabalin 75 mg oral capsule (20 sources) Start: 04-27-2024 End: 05-11-2025 take 1 capsule by mouth three times daily pregabalin (LYRICA) 75 mg capsule Indications: Post laminectomy syndrome , Lumbar radiculopathy Take 1 capsule by mouth three times a day for 180 days. 90 capsule 5 11/12/2024 05/11/2025 Active Start: 01-24-2024 End: 05-13-2024 pregabalin (LYRICA) 50 mg ca psule Indications: fibromyalgia Take one pill three times per day 90 capsule 5 03/05/2024 04/27/2024 Discontinued Start: 01-24-2024 End: 01-02-2024 pregabalin (LYRICA) 50 mg ca psule Indications: fibromyalgia Take one pill three times per day Do not start before January 24, 2024. 90 capsule 5 01/24/2024 01/02/2024 Discontinued Start: 09-10-2022 End: 04-02-2024 pregabalin (LYRICA) 50 mg ca psule Indications: fibromyalgia Take one pill three times per day Patient should start on January 24, 2024. 90 capsule 5 01/24/2024 04/02/2024 Active Comment on above: Take one pill at nig ht for one week, then add one pill in the morning for one week, then take on pill 3 times per day thereafter Take one pill three times per day primidone 50 mg oral tablet (20 sources) Anti-epileptic Agent Start: 03-23-2023 End: 12-04-2024 take 1 tablet by mouth once daily at bedtime primidone (MYSOLINE) 50 mg tablet TAKE 1 TABLET BY MOUTH ONCE DAILY AT BEDTIME 90 tablet 12/04/2024 Active Start: 09-13-2022 End: 12-12-2022 take 1 tablet by mouth once daily at bedtime primidone (MYSOLINE) 50 mg tablet Take 1 tablet by mouth daily at bedtime. 90 tablet 1 09/13/2022 Active Start: 10-27-2021 End: 01-25-2022 take 2 tablets by mouth once daily at bedtime primidone (MYSOLINE) 50 mg tablet Take 2 tablets by mouth daily at bedtime. 180 tablet 1 10/27/2021 Active Start: 08-28-2021 End: 12-10-2021 take 0.5 tablet by mouth once daily at bedtime, then take 0.5 tablet by mouth once daily at bedtime, then take 1 tablet by mouth once daily at bedtime primidone (MYSOLINE) 50 mg tablet Indications: Essential tremor Take 0.5 tablets by mouth daily at bedtime for 7 days, THEN 0.5 tablets daily at bedtime for 7 days, THEN 1 tablet daily at bedtime. 97 tablet 0 08/28/2021 10/27/2021 Discontinued Comment on above: Take 0.5 tablets by mouth daily at bedtime for 7 days, THEN 0.5 tablets daily at bedtime for 7 days, THEN 1 tablet daily at bedtime. Take 2 tablets by mo ut daily at bedtime. Take 1 tablet by alex th daily at bedtime. take 1 tablet by alex th once daily at bedtime rosuvastatin calcium 10 mg oral tablet (20 sources) HMG-CoA Reductase Inhibitor Start: End: take 1 tablet by mouth once daily at bedtime rosuvastatin (CRESTOR) 10 mg tablet Indications: Dyslipidemia TAKE 1 TABLET BY MOUTH ONCE DAILY AT BEDTIME 90 tablet 10/01/2024 03/30/2025 Active Start: 06-11-2022 End: 06-25-2024 take 1 tablet by mouth once daily at bedtime rosuvastatin (CRESTOR) 10 mg tablet Indications: Dyslipidemia take 1 tablet by mouth once daily at bedtime 90 tablet 1 12/28/2023 Active Start: 02-13-2021 End: 06-01-2021 take 1 tablet by mouth once daily at bedtime rosuvastatin (CRESTOR) 10 mg tablet Indications: Dyslipidemia TAKE 1 TABLET BY MOUTH ONCE DAILY AT BEDTIME 90 tablet 3 06/01/2021 Active Comment on above: Take 1 tablet by alex th daily at bedtime. TAKE 1 TABLET BY ALEX TH ONCE DAILY AT BEDTIME 125 ml sodium chloride 9 mg/ml prefilled syringe (20 sources) Start: 04-09-20 End: 07-10-19 sodium chloride 0.9 % (flush) 10 mL (BD POSIFLUSH) solifenacin succinate 5 mg oral tablet (20 sources) Cholinergic Muscarinic Antagonist Start: 07-09-19 End: 09-29-19 take 1 tablet by mouth once daily solifenacin (VESICARE) 5 mg tablet Take 1 tablet by mouth once daily 90 tablet 09/28/2024 Active Comment on above: Take 1 tablet by alex th once daily. Take 1 tablet by alex th once daily tropicamide 10 mg/ml ophthalmic solution (4 sources) Anticholinergic Start: 11-10-19 End: 11-11-19 tropicamide 1 % 1 drop (MYDRIACYL) Start: 11-09-2024 End: 11-10-2024 1 drop, BOTH EYES, DIRECT ED, Starting on Tue11/09/24 at 1530, Until Tue11/10/24 at 0329, Administer for dilation Start: 01-20-2024 End: 01-20-2024 tropicamide 1 % 1 Drop (MYDR IACYL) Start: 01-20-2024 End: 01-20-2024 1 Drop, BOTH EYES, DIRECT ED, Starting on Tue01/20/24 at 0830, Until Tue01/20/24 at 2028, Administer for dilation, OPHT CLINIC MED ORDERS valACYclovir 1000 mg oral tablet (20 sources) Herpesvirus Nucleoside Analog DNA Polymerase Inhibitor, Herpes Simplex Virus Nucleoside Analog DNA Polymerase Inhibitor, Herpes Zoster Virus Nucleoside Analog DNA Polymerase Inhibitor Start: 09-16-2020 End: 12-31-2024 take 1 tablet by mouth once daily valACYclovir (VALTREX) 1 gram tablet Take 1 tablet by mouth once daily 90 tablet 12/31/2024 Active Comment on above: Take 1 g by mouth on daily. Take 1 tablet by alex th once daily. Take 1 tablet by alex th once daily Completed/Discontinued Medications Medication Drug Class(es) Dates Sig (Normalized) Sig (Original) 0.9% NaCl 10 mL flush (5 sources) Start: 06-11-2024 End: 06-11-2024 0.9% NaCl 10 mL flush Start: 06-11-2024 End: 06-11-2024 10 mL, OTHER, ONCE, 1 dose, On Tue06/11/24 at 0900 Start: 11-16-2023 End: 11-16-2023 0.9% NaCl 10 mL flush Start: 01-17-2023 End: 01-17-2023 0.9% NaCl 10 mL flush acetaminophen 325 mg / HYDROcodone bitartrate 7.5 mg oral tablet (9 sources) Opioid Agonist Start: 03-17-2015 take 1 tablet by mouth every four to six hours as needed for pain HYDROCODONE-ACETAMINOPHEN 7.5-325 MG TABS 1 tab po q4-6hour as needed for pain HYDROCODONE-ACETAMINOPHEN [id number] Ashely Grace DO Start: 03-17-2015 HYDROCODONE-AC ETAMINOPHEN 7.5-325 MG TABS 1/2 tab prn HYDROCODONE-ACETAMINOPHEN [id number] Ashely Grace DO baclofen 5 mg oral tablet (20 sources) gamma-Aminobutyric Acid-ergic Agonist Start: 05-30-2023 End: 04-11-2024 take 1 tablet by mouth three times daily baclofen 5 mg tablet Indications: Trigeminal neuralgia take 1 tablet by mouth three times daily 90 tablet 06/27/2023 04/11/2024 Discontinued (Course of therapy completed) Comment on above: Take 1 tablet by alex th three times a day. take 1 tablet by alex th three times daily 5 ml bupivacaine hydrochloride 5 mg/ml injection (1 source) Amide Local Anesthetic Start: 04-07-2021 End: 04-07-2021 bupivacaine (PF) 0.5 % (5 mg/mL) 5 mg injection Start: 04-07-2021 End: 04-07-2021 bupivacaine (PF) 0.5 % (5 mg /mL) 5 mg injection calcium citrate (6 sources) Start: 03-17-2015 take 250-107 tablets by mouth twice daily CITRACAL +D3 250-107-500 MG-MG-UNIT CHEW One tablet by mouth twice daily [id number] D [id number] Dana Chand LPN Start: 03-17-2015 take 250-107 tablets by mouth twice daily CITRACAL +D3 250-107-500 MG-MG-UNIT CHEW One tablet by mouth twice daily [id number] D [id number] Ashely Grace DO calcium phosphate-vitamin D3 (CITRACAL-D3 GUMMIES) 250 mg-12.5 mcg (500 unit) chew (20 sources) Start: 03-17-2015 End: 09-08-2021 calcium phosphate-vitamin D3 (CITRACAL-D3 GUMMIES) 250 mg-12.5 mcg (500 unit) chew Take by mouth. 0 03/17/2015 09/08/2021 Discontinued Start: 03-17-2015 calcium phosph ate-vitamin D3 (CITRACAL-D3 GUMMIES) 250 mg- 12.5 mcg (500 unit) chew Take by mouth. 0 03/17/2015 Active Comment on above: Take by mouth. carbamide peroxide 65 mg/ml otic solution (14 sources) Start: 11-04-19 End: 02-24-20 carbamide peroxide (DEBROX) 6.5 % otic solution Indications: Bilateral impacted cerumen Use 4-5 Drops in both ears twice daily. 18 mL 1 11/03/2020 02/23/2021 Discontinued (Course of therapy completed) Comment on above: Use 4-5 Drops in bot h ears twice daily. ciprofloxacin 500 mg oral tablet (6 sources) Quinolone Antimicrobial Start: 04-07-20 15 End: 09-01-19 16 take 1 tablet by mouth twice daily CIPROFLOXACIN HCL 500 MG TABS 1 po Twice daily x 5 days CIPROFLOXACIN HCL [id number] Ashely Grace DO 1 ml dexamethasone phosphate 10 mg/ml injection (2 sources) Corticosteroid Start: 06-11-19 End: 06-11-19 dexAMETHasone sodium phosphate 10 mg injection (DECADRON) Start: 06-11-2024 End: 06-11-2024 10 mg, OTHER, ONCE, 1 dose, On Tue06/11/24 at 0900, Administer over 5 minutes. Diaper,Brief, Adult,Disposab le (DEPEND [place] WOMEN S/M) (6 sources) Start: 05-04-2022 End: 07-09-2022 Diaper,Brief, Adult,Disposab le (DEPEND [place] WOMEN S/M) Indications: Mixed incontinence Use as directed 3 times daily 73 Each 1 05/04/2022 07/09/2022 Discontinued Start: 05-04-2022 Diaper,Brief, Adult,Disposable (DEPEND [place] WOMEN S/M) Indications: Mixed incontinence Use as directed 3 times daily 73 Each 1 05/04/2022 Active Comment on above: Use as directed 3 ti mes daily doxazosin 4 mg oral tablet (20 sources) alpha-Adrenergic Omero Start: 11-24-2021 End: 05-30-2023 take 1 tablet by mouth once daily doxazosin (CARDURA) 4 mg tablet Take 1 tablet by mouth once daily 90 tablet 2 02/28/2023 05/30/2023 Discontinued (Changing Therapy/Dosage Form) Start: 05-16-2021 End: 11-17-2021 take 1 tablet by mouth once daily doxazosin (CARDURA) 4 mg tablet Take 1 tablet by mouth once daily. 90 tablet 1 05/16/2021 11/17/2021 Discontinued Start: 11-06-2020 take 1 tablet by alex th twice daily doxazosin (CARDURA) 2 mg tablet Take 1 tablet by mouth twice daily. 180 tablet 1 11/06/2020 Active Comment on above: Take 1 tablet by alex th twice daily. Take 1 tablet by alex th once daily. Take 1 tablet by alex th once daily estradiol 1 mg oral tablet (20 sources) Estrogen Start: 05-18-2021 End: 08-28-2021 take 0.5 tablet by mouth once daily estradiol (ESTRACE) 1 mg tablet Indications: Hot flashes Take 0.5 tablets by mouth once daily. 30 tablet 0 05/18/2021 08/28/2021 Discontinued (Course of therapy completed) Start: 05-16-2021 End: 05-18-2021 take 1 tablet by mouth once daily estradiol (ESTRACE) 1 mg tablet Take 1 tablet by mouth once daily. 30 tablet 1 05/16/2021 05/18/2021 Discontinued Start: 07-30-2020 take 1 tablet by alex th once daily estradiol (ESTRACE) 1 mg tablet Take 1 mg by mouth once daily. 0 07/30/2020 Active Start: 03-17-2015 take 1 tablet by alex th once daily ESTRADIOL 1 MG TABS One tablet by mouth daily ESTRADIOL [id number] Tai Beal DO Comment on above: Take 1 mg by mouth o nce daily. Take 0.5 tablets by mouth once daily. Take 1 tablet by alex th once daily. fish oil (3 sources) Start: 5 [facility] FISH OIL 1000 MG CAPS OMEGA-3 FATTY ACIDS [id number] Ashely Grace DO 30 actuat fluticasone furoate 0.2 mg/actuat / vilanterol 0.025 mg/actuat dry powder inhaler (20 sources) Corticosteroid, beta2-Adrenergic Agonist Start: 4 End: 4 take 1 dose by inhalation once daily BREO ELLIPTA 200-25 mcg/dose inhaler Indications: Mild persistent asthma without complication Inhale 1 Inhalation as instructed once daily. 60 Each 2 10/24/2023 03/26/2024 Discontinued (Changing Therapy/Dosage Form) Start: 02-09-2022 End: 10-24-2023 take 1 puff(s) by mouth once daily BREO ELLIPTA 200-25 mcg/dose inhaler INHALE 1 PUFF BY MOUTH ONCE DAILY DIRECTED 60 Each 2 10/21/2023 10/24/2023 Discontinued Start: 08-19-2021 End: 02-09-2022 take 1 dose by inhalation once daily BREO ELLIPTA 200-25 mcg/dose inhaler Inhale 1 Inhalation as instructed once daily. 1 Each 5 08/19/2021 02/09/2022 Discontinued Start: 09-09-2020 End: 08-18-2021 BREO ELLIPTA 200-25 mcg/dose inhaler Start: 05-09-2015 take 1 puff(s) by in halation once daily BREO ELLIPTA 200-25 MCG/INH AEPB 1 puff inhaled daily FLUTICASONE FUROATE-VILANTEROL [id number] Ashely Grace DO Comment on above: Inhale 1 Inhalation as instructed once daily. INHALE 1 PUFF BY ALEX TH ONCE DAILY DIRECTED GLUCOSE BLOOD (3 sources) Start: 03-17-2015 GERMAN BREEZE 2 TEST DISK use to test blood sugars 1 time/day GLUCOSE BLOOD [id number] Ashely Grace DO HANDICAP PLACARD (3 sources) Start: 06-17-2015 HANDICAP PLACARD DX: degenrative disease and PAD to in 05/2020 HANDICAP PLACARD Ashely Grace DO [id number] SOLN (9 sources) Aminoglycoside Antibacterial, Polymyxin-class Antibacterial, Corticosteroid Start: 03-17-2015 End: 10-11-2016 CORTISPORIN 3.5-64546-9 SOLN 4 drops into affected ear 3-4 times/daily as needed [id number] Robert Hutton RN RN Start: 03-17-[address] 4 drops 3-4 times daily [id number] SOLN [id number] Ashely Grace DO Start: 03-17-2015 CORTISPORIN 3. 5-22974-6 SOLN 4 drops into affected ear 3-4 times/daily as needed [id number] Ashely Grace DO iohexol 300 mg injection (OMNIPAQUE 300) (6 sources) Start: 12-19-2024 End: 12-19-2024 iohexol 300 mg injection (OMNIPAQUE 300) Start: 12-19-2024 End: 12-19-2024 300 mg, OTHER, ONCE, 1 dose, On Tue12/19/24 at 0730 Start: 06-11-2024 End: 06-11-2024 iohexol 300 mg injection (OM NIPAQUE 300) Start: 06-11-2024 End: 06-11-2024 300 mg, OTHER, ONCE, 1 dose, On Tue06/11/24 at 0900 Start: 11-16-2023 End: 11-16-2023 iohexol 300 mg injection (OM NIPAQUE 300) iohexol 300 mg IV injection (OMNIPAQUE 300) (3 sources) Start: 01-17-2023 End: 01-17-2023 iohexol 300 mg IV injection (OMNIPAQUE 300) Start: 11-26-2021 End: 11-26-2021 iohexol 300 mg IV injection (OMNIPAQUE 300) Start: 04-07-2021 End: 04-07-2021 iohexol 300 mg IV injection (OMNIPAQUE 300) Lidocaine (20 sources) Antiarrhythmic, Amide Local Anesthetic Start: 12-19-2024 End: 12-19-2024 lidocaine 10 mg/mL (1 %) 100 mg injection (XYLOCAINE) Start: 12-19-2024 End: 12-19-2024 lidocaine 20 mg/mL (2 %) 200 mg injection (XYLOCAINE) Start: 12-19-2024 End: 12-19-2024 200 mg (10 mL), OTHER, ONCE, 1 dose, On Tue12/19/24 at 0730 Start: 12-19-2024 End: 12-19-2024 100 mg (10 mL), OTHER, ONCE, 1 dose, On Tue12/19/24 at 0730 Start: 11-19-2024 End: 11-19-2024 lidocaine 10 mg/mL (1 %) 7 m L injection (XYLOCAINE) Start: 11-19-2024 End: 11-19-2024 7 mL, Injection - FOR ORTHO USE ONLY, ONCE, 1 dose, Starting on Tue11/19/24 at 1403, Until Tue11/19/24 at 1403 Start: 10-15-2024 End: 10-15-2024 lidocaine 10 mg/mL (1 %) 100 mg injection (XYLOCAINE) Start: 10-15-2024 End: 10-15-2024 lidocaine 20 mg/mL (2 %) 20 mg injection (XYLOCAINE) Start: 10-15-2024 End: 10-15-2024 20 mg, OTHER, ONCE, 1 dose, On Tue10/15/24 at 1430 Start: 10-15-2024 End: 10-15-2024 100 mg, OTHER, ONCE, 1 dose, On Tue10/15/24 at 1430 Start: 09-19-2024 End: 09-19-2024 lidocaine (PF) 10 mg/mL (1 % ) 5 mL injection (XYLOCAINE) Start: 09-19-2024 End: 09-19-2024 5 mL, Injection - FOR ORTHO USE ONLY, ONCE, 1 dose, Starting on Tue09/19/24 at 1339, Until Tue09/19/24 at 1339 Start: 07-16-2024 End: 07-16-2024 lidocaine (PF) 10 mg/mL (1 % ) 4 mL injection (XYLOCAINE) Start: 07-16-2024 End: 07-16-2024 5 mL, Injection - FOR ORTHO USE ONLY, ONCE, 1 dose, Starting on Tue07/16/24 at 1553, Until Tue07/16/24 at 1553 Start: 06-11-2024 End: 06-11-2024 lidocaine (PF) 10 mg/mL (1 % ) 100 mg injection (XYLOCAINE) Start: 06-11-2024 End: 06-11-2024 100 mg, OTHER, ONCE, 1 dose, On Tue06/11/24 at 0900 Start: 11-16-2023 End: 11-16-2023 lidocaine (PF) 10 mg/mL (1 % ) 100 mg injection (XYLOCAINE) Start: 01-17-2023 End: 01-17-2023 lidocaine (PF) 10 mg/mL (1 % ) 100 mg injection (XYLOCAINE) Start: 11-26-2021 End: 11-26-2021 lidocaine (PF) 20 mg/mL (2 % ) 200 mg injection (XYLOCAINE) Start: 11-26-2021 End: 11-26-2021 lidocaine 10 mg/mL (1 %) 100 mg injection (XYLOCAINE) Start: 04-07-2021 End: 04-07-2021 lidocaine (PF) 20 mg/mL (2 % ) 20 mg injection (XYLOCAINE) lisinopril 20 mg oral tablet (6 sources) Angiotensin Converting Enzyme Inhibitor Start: 03-17-2015 take 1 tablet by mouth once daily LISINOPRIL 20 MG TABS One tablet by mouth daily LISINOPRIL [id number] Ashely Grace DO magnesium chloride 64 mg magnesium tab (20 sources) Start: 11-10-2020 End: 08-28-2021 take 1 tablet by mouth once daily magnesium chloride 64 mg magnesium tab Take 1 tablet by mouth once daily for 14 days. 14 tablet 0 11/10/2020 08/28/2021 Discontinued (Course of therapy completed) Start: 11-10-2020 take 1 tablet by alex th once daily magnesium chloride 64 mg magnesium tab Take 1 tablet by mouth once daily for 14 days. 14 tablet 0 11/10/2020 Active Start: 11-10-2020 End: 11-24-2020 take 1 tablet by mouth once daily magnesium chloride 64 mg magnesium tab Take 1 tablet by mouth once daily for 14 days. 14 tablet 0 11/10/2020 11/24/2020 Active Comment on above: Take 1 tablet by [facility] once daily for 14 days. 1 ml methylPREDNISolone acetate 40 mg/ml injection (13 sources) Corticosteroid Start: 12-20-19 End: 12-20-19 methylPREDNISolone acetate 40 mg injection (DEPO-Medrol) Start: 12-19-2024 End: 12-19-2024 40 mg, OTHER, ONCE, 1 dose, On Tue12/19/24 at 0730 Start: 11-19-2024 End: 11-19-2024 methylPREDNISolone acetate 4 0 mg injection (DEPO-Medrol) Start: 11-19-2024 End: 11-19-2024 40 mg, Injection - FOR ORTHO USE ONLY, ONCE, 1 dose, Starting on Tue11/19/24 at 1403, Until Tue11/19/24 at 1403 Start: 10-15-2024 End: 10-15-2024 methylPREDNISolone acetate 4 0 mg injection (DEPO-Medrol) Start: 10-15-2024 End: 10-15-2024 40 mg, OTHER, ONCE, 1 dose, On Tue10/15/24 at 1430 Start: 04-27-2024 End: 05-03-2024 methylPREDNISolone (MEDROL, BECKI,) 4 mg Dose-Pack Indications: Lumbar radiculopathy Take according to packet instructions 21 tablet 04/27/2024 05/03/2024 Active Start: 11-16-2023 End: 11-16-2023 methylPREDNISolone acetate 4 0 mg injection (DEPO-Medrol) Start: 01-17-2023 End: 01-17-2023 methylPREDNISolone acetate 4 0 mg injection (DEPO-Medrol) Start: 11-26-2021 End: 11-26-2021 methylPREDNISolone acetate 8 0 mg injection (DEPO-Medrol) Start: 04-07-2021 End: 04-07-2021 methylPREDNISolone acetate 4 0 mg injection (DEPO-Medrol) Start: 04-01-2021 End: 04-07-2021 methylPREDNISolone (MEDROL D OSE-PACK) 4 mg Dose-Pack As Instructed per package 21 tablet 0 04/01/2021 04/07/2021 Active Comment on above: As Instructed per dennis amin molnupiravir 200 mg capsule (1 source) Start: 3 End: 3 take 4 capsules by mouth twice daily molnupiravir 200 mg capsule Indications: COVID-19 Take 4 capsules by mouth twice daily for 5 days. 40 capsule 0 07/12/2022 07/17/2022 Comment on above: Take 4 capsules by [facility] twice daily for 5 days. MULTIPLE VITAMINS-MINERALS (6 sources) Start: 5 take 1 tablet by mouth once daily CENTRUM SILVER TABS One tablet by mouth daily MULTIPLE VITAMINS-MINERALS [id number] Dana Chand LPN Start: 03-17-2015 take 1 tablet by alex once daily CENTRUM SILVER TABS One tablet by mouth daily MULTIPLE VITAMINS-MINERALS [id number] Ashely A Malys, DO nitrofurantoin, macrocrystals 25 mg / nitrofurantoin, monohydrate 75 mg oral capsule (3 sources) Nitrofuran Antibacterial Start: 07-26-2022 End: 07-31-2022 take 1 capsule by mouth twice daily nitrofurantoin monohydrate and macrocrystal (MACROBID) 100 mg capsule Indications: Dysuria Take 1 capsule by mouth twice daily for 5 days. 10 capsule 0 07/26/2022 07/31/2022 Start: 10-23-2021 End: 10-28-2021 take 1 capsule by mouth twice daily nitrofurantoin monohydrate and macrocrystal (MACROBID) 100 mg capsule Indications: Dysuria Take 1 capsule by mouth twice daily for 5 days. 10 capsule 0 10/23/2021 10/28/2021 Comment on above: Take 1 capsule by mo [facility] twice daily for 5 days. Mjuab-9-CPT-EPA-Fish Oil (FISH OIL) 300-1,000 mg cap (20 sources) Start: 03-17-2015 End: 09-08-2021 Oepsx-3-UJF-EPA-Fish Oil (FISH OIL) 300-1,000 mg cap Take by mouth. 0 03/17/2015 09/08/2021 Discontinued Start: 03-17-2015 Yfpwg-1-NXJ-EP A-Fish Oil (FISH OIL) 300-1,000 mg cap Take by mouth. 0 03/17/2015 Active Comment on above: Take by mouth. Psyllium Seed-Sucrose (METAMUCIL, SUGAR,) (11 sources) Start: 05-18-2021 End: 08-28-2021 Psyllium Seed-Sucrose (METAMUCIL, SUGAR,) Indications: Loose stools Take 1 Tablespoonful by mouth twice daily. 368 g 0 05/18/2021 08/28/2021 Discontinued (Course of therapy completed) Start: 05-18-2021 Psyllium Seed- Sucrose (METAMUCIL, SUGAR,) Indications: Loose stools Take 1 Tablespoonful by mouth twice daily. 368 g 0 05/18/2021 Active Comment on above: Take 1 Tablespoonful by mouth twice daily. tiZANidine 4 mg oral tablet (20 sources) Central alpha-2 Adrenergic Agonist Start: 3 End: 3 take 1 tablet by mouth at bedtime as needed for muscle spasms tiZANidine (ZANAFLEX) 4 mg tablet Indications: muscle spasm Take 1 tablet by mouth at bedtime as needed (muscle spasms). 30 tablet 5 09/22/2022 11/30/2022 Discontinued Start: 09-25-2021 End: 01-05-2022 take 1 tablet by mouth every eight hours as needed tiZANidine (ZANAFLEX) 4 mg tablet Indications: Acute right-sided low back pain with right-sided sciatica Take 1 tablet by mouth every 8 hours as needed. 90 tablet 0 09/25/2021 01/05/2022 Discontinued (Course of therapy completed) Comment on above: Take 1 tablet by alex th every 8 hours as needed. Take 1 tablet by alex th at bedtime as needed (muscle spasms). traMADol hydrochloride 50 mg oral tablet (20 sources) Opioid Agonist Start: 5 End: 5 take 1 tablet by mouth at bedtime as needed for pain traMADol (ULTRAM) 50 mg tablet Indications: Post laminectomy syndrome , Lumbar radiculopathy Take 1 tablet by mouth at bedtime as needed for pain for up to 60 days. 30 tablet 1 11/12/2024 01/09/2025 Discontinued Start: 09-07-2024 End: 11-06-2024 take 1 tablet by mouth at bedtime as needed for pain traMADol (ULTRAM) 50 mg tablet Indications: Post laminectomy syndrome , Lumbar radiculopathy Take 1 tablet by mouth at bedtime as needed for pain for up to 60 days. Patient should start on September 07, 2024. 30 tablet 1 09/07/2024 11/06/2024 Active Start: 07-05-2024 End: 10-03-2024 take 1 tablet by mouth at bedtime as needed for pain traMADol (ULTRAM) 50 mg tablet Indications: Lumbar radiculopathy , Post laminectomy syndrome Take 1 tablet by mouth at bedtime as needed for pain for up to 90 days. Patient should start on July 05, 2024. 30 tablet 2 07/05/2024 09/04/2024 Discontinued Start: 06-27-2024 End: 06-25-2024 traMADol (ULTRAM) 50 mg tabl et Indications: Post laminectomy syndrome , Lumbar radiculopathy Take 1 tablet by mouth at bedtime as needed for pain for up to 90 days. Patient should start on June 27, 2024. 30 tablet 2 06/27/2024 06/25/2024 Discontinued Start: 06-27-2024 End: 09-25-2024 traMADol (ULTRAM) 50 mg tabl et Indications: Post laminectomy syndrome , Lumbar radiculopathy Take 1 tablet by mouth at bedtime as needed for pain for up to 90 days. Patient should start on June 27, 2024. 30 tablet 2 06/27/2024 09/25/2024 Active Start: 04-27-2024 End: 06-26-2024 take 1 tablet by mouth at bedtime as needed for pain traMADol (ULTRAM) 50 mg tablet Indications: Post laminectomy syndrome , Lumbar radiculopathy Take 1 tablet by mouth at bedtime as needed for pain for up to 60 days. 30 tablet 1 04/27/2024 06/01/2024 Discontinued Start: 03-10-2024 End: 06-08-2024 take 1 tablet by mouth at bedtime as needed for pain traMADol (ULTRAM) 50 mg tablet Indications: Lumbar radiculopathy , Post laminectomy syndrome Take 1 tablet by mouth at bedtime as needed for pain for up to 90 days. Patient should start on March 10, 2024. 30 tablet 2 03/10/2024 04/27/2024 Discontinued Start: 01-10-2024 End: 03-10-2024 take 1 tablet by mouth at bedtime as needed for pain traMADol (ULTRAM) 50 mg tablet Indications: Lumbar radiculopathy , Post laminectomy syndrome Take 1 tablet by mouth at bedtime as needed for pain for up to 60 days. Patient should start on January 10, 2024. 30 tablet 1 01/10/2024 03/01/2024 Discontinued Start: 10-14-2023 End: 12-13-2023 take 1 tablet by mouth at bedtime as needed for pain traMADol (ULTRAM) 50 mg tablet Indications: Post laminectomy syndrome Take 1 tablet by mouth at bedtime as needed for pain for up to 60 days. Do not start before October 14, 2023. 30 tablet 1 10/14/2023 12/13/2023 Active Start: 09-14-2023 End: 10-07-2023 take 1 tablet by mouth once daily traMADol (ULTRAM) 50 mg tablet Indications: Post laminectomy syndrome Take 1 tablet by mouth once daily for 23 days. 23 tablet 0 09/14/2023 10/07/2023 Active Start: 07-22-2023 End: 08-13-2023 traMADol (ULTRAM) 50 mg tabl et Indications: Post laminectomy syndrome , Lumbar spondylosis Take 1-2 tablets per day as needed for pain. Use sparingly Do not start before July 22, 2023. 45 tablet 0 07/22/2023 08/13/2023 Active Start: 01-28-2023 End: 03-30-2023 traMADol (ULTRAM) 50 mg tabl et Indications: Post laminectomy syndrome , Lumbar radiculopathy , Lumbar spondylosis Take 1-2 tablets per day as needed for pain. Use sparingly Do not start before February 28, 2023. 45 tablet 0 02/28/2023 03/30/2023 Active Start: 01-11-2023 End: 11-30-2022 take 1 tablet by mouth twice daily traMADol (ULTRAM) 50 mg tablet Indications: Post laminectomy syndrome , Lumbar radiculopathy , Lumbar spondylosis Take 1 tablet by mouth twice daily for 10 days. Use sparingly Do not start before January 11, 2023. 4 tablet 0 01/11/2023 11/30/2022 Discontinued Start: 01-11-2023 End: 01-21-2023 take 1 tablet by mouth twice daily traMADol (ULTRAM) 50 mg tablet Indications: Post laminectomy syndrome , Lumbar radiculopathy , Lumbar spondylosis Take 1 tablet by mouth twice daily for 10 days. Use sparingly Do not start before January 11, 2023. 4 tablet 0 01/11/2023 01/21/2023 Active Start: 12-22-2022 End: 01-21-2023 traMADol (ULTRAM) 50 mg tabl et Indications: Post laminectomy syndrome , Lumbar radiculopathy , Lumbar spondylosis Take 1-2 tablets per day as needed for pain. Use sparingly 45 tablet 0 12/22/2022 01/21/2023 Active Start: 11-05-2022 End: 12-05-2022 traMADol (ULTRAM) 50 mg tabl et Indications: Post laminectomy syndrome , Lumbar radiculopathy , Lumbar spondylosis Take 1-2 tablets per day as needed for pain. Use sparingly 45 tablet 0 11/05/2022 12/05/2022 Active Start: 10-10-2022 End: 11-09-2022 traMADol (ULTRAM) 50 mg tabl et Indications: Post laminectomy syndrome , Lumbar radiculopathy , Lumbar spondylosis Take 1-2 tablets per day as needed for pain. Use sparingly Do not start before October 10, 2022. 45 tablet 0 10/10/2022 11/05/2022 Discontinued Start: 09-10-2022 End: 10-10-2022 take 1 tablet by mouth twice daily traMADol (ULTRAM) 50 mg tablet Indications: Post laminectomy syndrome , Lumbar radiculopathy , Lumbar spondylosis Take 1 tablet by mouth twice daily for 30 days. Use sparingly 45 tablet 0 09/10/2022 10/10/2022 Active Start: 08-08-2022 End: 09-07-2022 traMADol (ULTRAM) 50 mg tabl et Indications: Post laminectomy syndrome , Lumbar radiculopathy , Lumbar spondylosis Take 1-2 tablets per day as needed for pain. Use sparingly Do not start before August 08, 2022. 45 tablet 0 08/08/2022 09/07/2022 Active Start: 07-09-2022 End: 08-08-2022 take 1 tablet by mouth twice daily traMADol (ULTRAM) 50 mg tablet Indications: Post laminectomy syndrome , Lumbar radiculopathy , Lumbar spondylosis Take 1 tablet by mouth twice daily for 30 days. Use sparingly 45 tablet 0 07/09/2022 08/08/2022 Active Start: 05-23-2022 End: 06-24-2022 take 1 tablet by mouth twice daily traMADol (ULTRAM) 50 mg tablet Indications: Post laminectomy syndrome , Lumbar radiculopathy , Lumbar spondylosis Take 1 tablet by mouth twice daily for 30 days. Use sparingly Do not start before May 25, 2022. 30 tablet 1 05/25/2022 06/24/2022 Active Start: 05-03-2022 End: 04-22-2022 traMADol (ULTRAM) 50 mg tabl et Indications: Post laminectomy syndrome , Lumbar radiculopathy , Lumbar spondylosis Take 1 tablet by mouth twice daily for 30 days. Use sparingly Do not start before May 03, 2022. 45 tablet 0 05/03/2022 04/22/2022 Discontinued Start: 04-03-2022 End: 06-02-2022 take 1 tablet by mouth twice daily traMADol (ULTRAM) 50 mg tablet Indications: Post laminectomy syndrome , Lumbar radiculopathy , Lumbar spondylosis Take 1 tablet by mouth twice daily for 30 days. Use sparingly Do not start before April 23, 2022. 45 tablet 0 04/23/2022 05/10/2022 Discontinued Start: 03-04-2022 End: 07-09-2022 traMADol (ULTRAM) 50 mg tabl et Indications: Post laminectomy syndrome , Lumbar radiculopathy , Lumbar spondylosis Take 1-2 tablets per day as needed for pain. Use sparingly 45 tablet 0 03/04/2022 07/09/2022 Discontinued Start: 01-05-2022 End: 03-06-2022 take 1 tablet by mouth twice daily traMADol (ULTRAM) 50 mg tablet Indications: Post laminectomy syndrome , Lumbar radiculopathy , Lumbar spondylosis Take 1 tablet by mouth twice daily for 30 days. Use sparingly Do not start before February 04, 2022. 45 tablet 0 02/04/2022 03/04/2022 Discontinued Start: 09-02-2021 End: 01-03-2022 take 1 tablet by mouth twice daily traMADol (ULTRAM) 50 mg tablet Indications: Post laminectomy syndrome , Lumbar radiculopathy , Lumbar spondylosis Take 1 tablet by mouth twice daily for 30 days. Use sparingly Do not start before December 04, 2021. 45 tablet 0 12/04/2021 01/03/2022 Active Start: 07-24-2021 End: 08-23-2021 traMADol (ULTRAM) 50 mg tabl et Indications: Post laminectomy syndrome , Lumbar radiculopathy , Lumbar spondylosis Take 1 tablet by mouth twice daily for 30 days. Do not start before July 24, 2021. 45 tablet 0 07/24/2021 08/23/2021 Active Start: 06-25-2021 End: 06-23-2021 traMADol (ULTRAM) 50 mg tabl et Indications: Lumbar radiculopathy , Post laminectomy syndrome , Lumbar spondylosis Take 1 tablet by mouth twice daily for 30 days. Use sparingly Do not start before June 25, 2021. 45 tablet 0 06/25/2021 06/23/2021 Discontinued Start: 06-23-2021 End: 07-25-2021 take 1 tablet by mouth twice daily traMADol (ULTRAM) 50 mg tablet Indications: Lumbar radiculopathy , Post laminectomy syndrome , Lumbar spondylosis Take 1 tablet by mouth twice daily for 30 days. Use sparingly 45 tablet 0 06/23/2021 07/23/2021 Active Start: 04-30-2021 End: 05-30-2021 take 1 tablet by mouth twice daily traMADol (ULTRAM) 50 mg tablet Indications: Lumbar radiculopathy , Post laminectomy syndrome , Lumbar spondylosis Take 1 tablet by mouth twice daily for 30 days. 45 tablet 0 04/30/2021 05/30/2021 Start: 02-02-2021 End: 04-03-2021 take 1 tablet by mouth twice daily traMADol (ULTRAM) 50 mg tablet Indications: Lumbar radiculopathy , Post laminectomy syndrome , Lumbar spondylosis Take 1 tablet by mouth twice daily for 60 days. Use sparingly Do not start before February 02, 2021. 45 tablet 1 02/02/2021 04/03/2021 Active Start: 12-19-2020 End: 01-30-2021 take 1 tablet by mouth twice daily traMADol (ULTRAM) 50 mg tablet Indications: Lumbar radiculopathy , Post laminectomy syndrome , Lumbar spondylosis Take 1 tablet by mouth twice daily for 45 days. Use sparingly 90 tablet 0 01/07/2021 01/30/2021 Discontinued Start: 10-30-2020 End: 12-19-2020 take 1 tablet by mouth once daily traMADol (ULTRAM) 50 mg tablet Take 50 mg by mouth once daily. 0 10/30/2020 12/19/2020 Discontinued Comment on above: Take 50 mg by mouth once daily. Take 1 tablet by alex th twice daily for 30 days. Take 1 tablet by alex th twice daily for 60 days. Use sparingly Do not start before February 02, 2021. Take 1 tablet by alex twice daily for 45 days. Use sparingly Take 1 tablet by alex twice daily for 30 days. Use sparingly Do not start before June 25, 2021. Take 1 tablet by alex th twice daily for 30 days. Use sparingly Take 1 tablet by alex twice daily for 30 days. Do not start before July 24, 2021. Take 1 tablet by alex twice daily for 30 days. Use sparingly Do not start before November 01, 2021. Take 1 tablet by alex twice daily for 30 days. Do not start before October 02, 2021. Take 1 tablet by alex twice daily for 30 days. Use sparingly Do not start before December 04, 2021. Take 1 tablet by alex twice daily for 30 days. Use sparingly Do not start before February 04, 2022. Take 1-2 tablets per day as needed for pain. Use sparingly Take 1 tablet by alex th twice daily for 30 days. Use sparingly Do not start before May 03, 2022. Take 1 tablet by alex th twice daily for 30 days. Use sparingly Do not start before April 03, 2022. Take 1 tablet by alex th twice daily for 30 days. Use sparingly Do not start before May 23, 2022. Take 1 tablet by alex th twice daily for 30 days. Use sparingly Do not start before April 23, 2022. Take 1 tablet by alex th twice daily for 30 days. Use sparingly Do not start before May 25, 2022. Take 1-2 tablets per day as needed for pain. Use sparingly Do not start before August 08, 2022. Take 1-2 tablets per day as needed for pain. Use sparingly Do not start before October 10, 2022. Take 1 tablet by alex th twice daily for 10 days. Use sparingly Do not start before January 11, 2023. Take 1-2 tablets per day as needed for pain. Use sparingly Do not start before February 28, 2023. Take 1-2 tablets per day as needed for pain. Use sparingly Do not start before January 28, 2023. Take 1-2 tablets per day as needed for pain. Use sparingly Do not start before July 22, 2023. 1 ml triamcinolone acetonide 40 mg/ml injection (2 sources) Corticosteroid Start: 07-16-2024 End: 07-16-2024 triamcinolone acetonide 40 mg injection (KeNALog 40) Start: 07-16-2024 End: 07-16-2024 40 mg, Injection - FOR ORTHO USE ONLY, ONCE, 1 dose, Starting on Tue07/16/24 at 1553, Until Tue07/16/24 at 1553 vitamin b12 1 mg extended release oral tablet (20 sources) Vitamin B12 Start: 11-10-2020 End: 09-08-2021 take 1 tablet by mouth once daily Cyanocobalamin 1,000 mcg TbER Indications: Vitamin B 12 deficiency Take 1 tablet by mouth once daily. 90 tablet 0 02/23/2021 09/08/2021 Discontinued (Course of therapy completed) Comment on above: Take 1 tablet by mouth once daily. Problems Active Problems Problem Classification Problem Date Documented Da te Episodic/Chronic Administrative/social admission (1 source) Clinical management plan agreed; Translations: [Encounter for other administrative examinations] 07-14-2023 Episodic Anxiety disorders (3 sources) Anticipatory anxiety; Translations: [Anxiety disorder, unspecified] 10-10-2023 Chronic Asthma (20 sources) Asthma; Translations: [Unspecified asthma, uncomplicated] Onset: 04-25-1949 03-17-2015 Chronic Cataract (20 sources) Cataract; Translations: [Pseudophakia] Onset: 03-17-2015 03-17-2015 Chronic Diabetes mellitus with complications (20 sources) Neurologic disorder associated with type 2 diabetes mellitus; Translations: [Type 2 diabetes mellitus] Onset: 03-17-2015 03-24-2015 Chronic Diabetes mellitus without complication (20 sources) Diabetes mellitus type 2 without retinopathy; Translations: [Type 2 diabetes mellitus without complications] Onset: 09-07-2021 09-07-2021 Chronic Disorders of lipid metabolism (15 sources) Hyperlipidemia; Translations: [Dyslipidemia] Onset: 03-17-2015 03-24-2015 Chronic Essential hypertension (20 sources) Hypertensive disorder; Translations: [Essential hypertension] Onset: 04-25-1969 03-24-2015 Chronic Fluid and electrolyte disorders (9 sources) Hypokalemia; Translations: [Hypokalemia] Episodic Genitourinary symptoms and ill-defined conditions (1 source) Incontinence; Translations: [Mixed incontinence] Chronic Genitourinary symptoms and ill-defined conditions (2 sources) Dysuria; Translations: [Dysuria] Episodic Immunizations and screening for infectious disease (8 sources) Viral screening status; Translations: [Encounter for screening for other viral diseases] Episodic Joint disorders and dislocations; trauma-related (2 sources) Tear of meniscus of knee; Translations: [Other meniscus derangements, unspecified meniscus, right knee] Onset: 11-19-2024 11-19-2024 Chronic Joint disorders and dislocations; trauma-related (1 source) Subluxation of patellofemoral joint; Translations: [Unspecified subluxation of right patella, initial encounter] 08-08-2023 Episodic Malaise and fatigue (1 source) Fatigue; Translations: [Other fatigue] Episodic Nonspecific chest pain (4 sources) Chest pain; Translations: [Chest pain, unspecified] Episodic Nutritional deficiencies (2 sources) Cobalamin deficiency; Translations: [Deficiency of other specified B group vitamins] Episodic Osteoarthritis (20 sources) Bilateral arthritis of knees; Translations: [Bilateral primary osteoarthritis of knee] Onset: 02-16-2022 02-16-2022 Chronic Other acquired deformities (20 sources) Scoliosis deformity of spine; Translations: [Scoliosis, unspecified] Onset: 02-16-2022 02-16-2022 Chronic Other acquired deformities (2 sources) Spondylolysis of cervical spine; Translations: [Spondylolysis, cervical region] Episodic Other aftercare (13 sources) Admission statuses; Translations: [jail (current) use of opiate analgesic] Episodic Other connective tissue disease (1 source) Atrophy of muscle of right hand; Translations: [Muscle wasting and atrophy, not elsewhere classified, right hand] Episodic Other connective tissue disease (1 source) Muscle atrophy; Translations: [Muscle wasting and atrophy, not elsewhere classified, unspecified hand] Episodic Other connective tissue disease (1 source) Hand pain; Translations: [Pain in unspecified hand] 02-20-2024 Episodic Other connective tissue disease (2 sources) Pain of left hand; Translations: [Pain in left hand] 02-20-2024 Episodic Other connective tissue disease (2 sources) Trochanteric bursitis; Translations: [Trochanteric bursitis, left hip] 09-04-2024 Episodic Other diseases of bladder and urethra (3 sources) Overactive bladder; Translations: [Overactive bladder] Chronic Other ear and sense organ disorders (2 sources) Impacted cerumen of bilateral ears; Translations: [Impacted cerumen, bilateral] Episodic Other ear and sense organ disorders (1 source) Eczema of external auditory canal; Translations: [Acute eczematoid otitis externa, bilateral] Episodic Other eye disorders (20 sources) Bilateral posterior vitreous detachment; Translations: [Vitreous degeneration, bilateral] Onset: 09-07-2021 09-07-2021 Chronic Other eye disorders (3 sources) Fourth nerve palsy; Translations: [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, left eye] Onset: 01-07-2025 11-09-2024 Episodic Other eye disorders (3 sources) Ophthalmoplegia; 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] 11-15-2024 Episodic Other eye disorders (2 sources) 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, left eye; Translations: [Superior oblique palsy, left] Onset: 11-09-2024 Episodic Other eye disorders (1 source) Unspecified paralytic strabismus; 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] Onset: 12-17-2024 Episodic Other gastrointestinal disorders (1 source) Loose stool; Translations: [Other fecal abnormalities] Episodic Other hereditary and degenerative nervous system conditions (4 sources) Essential tremor; Translations: [Essential tremor] Chronic Other hereditary and degenerative nervous system conditions (1 source) Essential tremor; Translations: [Essential tremor] Onset: 02-12-2025 Chronic Other lower respiratory disease (1 source) Cough; Translations: [Acute cough] 11-20-2024 Episodic Other nervous system disorders (3 sources) Peripheral nerve disease ; Translations: [Hereditary and idiopathic neuropathy, unspecified] Onset: 03-17-2015 03-24-2015 Chronic Other nervous system disorders (1 source) Chronic pain syndrome; Translations: [Chronic pain syndrome] Chronic Other nervous system disorders (1 source) Other chronic pain; Translations: [Chronic pain of right knee] Onset: 01-29-2025 Chronic Other nervous system disorders (1 source) Involuntary movement; Translations: [Unspecified abnormal involuntary movements] Episodic Other nervous system disorders (1 source) Psychosomatic musculoskeletal symptoms; Translations: [Tremor, unspecified] Episodic Other nervous system disorders (4 sources) Trigeminal neuralgia; Translations: [Trigeminal neuralgia] 11-30-2022 Episodic Other nervous system disorders (1 source) Trigeminal nerve disorder; Translations: [Disorder of trigeminal nerve, unspecified] 12-03-2022 Episodic Other non-traumatic joint disorders (3 sources) Arthritis; Translations: [Unspecified osteoarthritis, unspecified site] Onset: 03-17-2015 03-17-2015 Chronic Other non-traumatic joint disorders (11 sources) Pain in right knee; Translations: [Pain in joint, lower leg] Onset: 01-29-2025 07-19-2023 Episodic Other non-traumatic joint disorders (1 source) Anterior knee pain; Translations: [Pain in unspecified knee] 09-23-2023 Episodic Other non-traumatic joint disorders (8 sources) Hip pain; Translations: [Pain in left hip] 11-12-2024 Episodic Other nutritional; endocrine; and metabolic disorders (1 source) Hypomagnesemia; Translations: [Hypomagnesemia] Chronic Other screening for suspected conditions (not mental disorders or infectious disease) (14 sources) Patient encounter status; Translations: [Encounter for screening for osteoporosis] Episodic Pleurisy; pneumothorax; pulmonary collapse (2 sources) Pleural effusion; Translations: [Pleural effusion, not elsewhere classified] Episodic Residual codes; unclassified (2 sources) Menopause present; Translations: [Asymptomatic menopausal state] Episodic Residual codes; unclassified (8 sources) Flushing; Translations: [Flushing] Episodic Residual codes; unclassified (1 source) Memory impairment; Translations: [Other amnesia] 04-11-2024 Episodic Spondylosis; intervertebral disc disorders; other back problems (20 sources) Degeneration of lumbar intervertebral disc; Translations: [Post-laminectomy syndrome] Onset: 12-21-2001 03-24-2015 Chronic Unclassified (3 sources) Screening for malignant neoplasm of colon ; Translations: [Encounter for screening for malignant neoplasm of colon] Onset: 10-11-2016 10-11-2016 Unclassified (2 sources) Chronic pain of right knee 07-16-2024 Unclassified (1 source) Established Patient Onset: 02-19-2025 Viral infection (1 source) Disease caused by 2019-nCoV; Translations: [COVID-19] Episodic Past or Other Problems Problem Classification Problem Date Documented Da te Episodic/Chronic Blindness and vision defects (20 sources) Presbyopia; Translations: [Presbyopia] Onset: 09-07-2021 09-07-2021 Episodic Other aftercare (1 source) jail (current) use of opiate analgesic; Translations: [Encounter for long-term use of opiate analgesic] Onset: 11-12-2024 Episodic Other connective tissue disease (3 sources) Akathisia; Translations: [Drug induced akathisia] Onset: 03-17-2015 03-18-2015 Episodic Other connective tissue disease (20 sources) Impingement syndrome of left shoulder region; Translations: [Impingement syndrome of left shoulder] Onset: 02-16-2022 02-16-2022 Episodic Other connective tissue disease (6 sources) Synovial cyst of popliteal space [Lindsey], right knee; Translations: [Synovial cyst of popliteal space] Onset: 07-11-2024 07-16-2024 Episodic Other connective tissue disease (1 source) Trochanteric bursitis, left hip; Translations: [Greater trochanteric bursitis, left] Onset: 09-04-2024 Episodic Other connective tissue disease (1 source) Pain in left hand; Translations: [Left hand pain] Onset: 03-29-2024 Episodic Other eye disorders (20 sources) Tear film insufficiency; Translations: [Dry eye syndrome of bilateral lacrimal glands] Onset: 09-07-2021 09-07-2021 Episodic Other eye disorders (20 sources) Meibomian gland dysfunction of bilateral eyes; Translations: [Meibomian gland dysfunction right eye, upper and lower eyelids] Onset: 09-07-2021 09-07-2021 Episodic Other nervous system disorders (2 sources) Other symptoms and signs involving cognitive functions and awareness; Translations: [Memory loss] Onset: 05-04-2024 05-04-2024 Episodic Other non-traumatic joint disorders (20 sources) Chronic pain of left upper limb; Translations: [Pain in left shoulder] Onset: 10-31-2021 Episodic Other non-traumatic joint disorders (1 source) Pain in left hip; Translations: [Pain in left hip] Onset: 11-12-2024 Episodic Other non-traumatic joint disorders (1 source) Pain in right hip; Translations: [Pain in right hip] Onset: 11-12-2024 Episodic Residual codes; unclassified (1 source) Other amnesia; Translations: [Impaired memory] Onset: 04-11-2024 Episodic Spondylosis; intervertebral disc disorders; other back problems (20 sources) Chronic low back pain; Translations: [Lumbar radiculopathy] Onset: 03-17-2015 03-24-2015 Episodic Results Test Name Value Interpretation Reference Range Facility [facility] 02-19-2025 CNOV Office Visit (AGPOB1 ) AKILA DE LOS SANTOS ([id number]) 1945 F Date Time Provider Department 02/19/25 2:45 PM KATYA MARTINEZ AGB1 During your visit today, we recorded the following information about you: Respiration Weight Height 18/minute 65.3 kg 1.549 m Katie Calloway LPN 02/19/2025 5:25 PM Signed Location of pain: right knee Patient is here today for her 3rd gel injection Last visit for this issue: 1 week ago Any additional/new injury since last visit: NO BWC: NO Pain at rest: 10 Pain at times up to : 02/01 Treatment for this issue since last visit: OTC pain relief Additional History related to concern: patient does have a lindsey cyst in that knee as well Imaging since last visit: Katie Gaitan LPN 02/19/2025 5:25 PM Signed Prepared medication injection Euflexxa for provider to administer to patient per order. Once prepared medication was handed to provider to administer to patient. Katie Calloway LPN Katya Martinez DO 02/19/2025 5:25 PM Signed HPI: Akila De Los Santos presented to the Orthopedics department for follow-up regarding right knee pain Euflexxa injection #3/3 schedule today Denies any new injury or trauma since last visit Increased pain posterior medial knee overnight-in the area of the previous Lindsey's cyst Has had the cyst drained multiple times in the past but always returns Did not try ice recently Persistent right knee pain with potentially some mild improvement with Euflexxa injections #1/2 so far Has noticed mild increase swelling in the right calf area but no erythema, increased warmth or ecchymosis. Admits remote history of previous DVT right lower extremity this feels different Declined order for DVT ultrasound right lower extremity despite discussion of potential risks Patient agreed to seek additional care through emergency room or primary care if persistent or worsening right lower extremity pain, swelling or concern regarding possible DVT. HPI PAST MEDICAL HISTORY Diagnosis Date 4th nerve palsy, left Asthma (HCC) Diabetes mellitus (HCC) DJD (degenerative joint disease) Left hand pain Osteoarthritis of multiple joints PAD (peripheral artery disease) TIA (transient ischemic attack) PAST SURGICAL HISTORY Procedure Laterality Date CATARACT EXTRACTION HX Left 11/2016 CATARACT EXTRACTION HX Right 11/2018 TOTAL ABDOM HYSTERECTOMY SOCIAL HISTORY[1] Current Outpatient Medications Medication Sig fluticasone-salmeterol (ADVAIR) 500-50 mcg/dose dsdv INHALE 1 PUFF TWICE DAILY citalopram (CELEXA) 20 mg tablet Take 1 tablet by mouth once daily solifenacin (VESICARE) 5 mg tablet Take 1 tablet by mouth once daily rosuvastatin (CRESTOR) 10 mg tablet Take 1 tablet by mouth daily at bedtime. traMADol (ULTRAM) 50 mg tablet Take 1 tablet by mouth at bedtime as needed for pain for up to 60 days. Patient should start on February 01, 2025. Lancets Use with blood glucose test once daily blood sugar diagnostic test strip Use with blood glucose test once daily alcohol swabs Use with blood glucose test once daily Blood-Glucose Sensor (FREESTYLE LINDA 2 PLUS SENSOR) bronson Use as directed to check blood sugar 3 times daily flash glucose scanning reader (FREESTYLE LINDA 2 READER) Use as directed to check blood glucose 3 times daily montelukast (SINGULAIR) 10 mg tablet TAKE 1 TABLET BY MOUTH ONCE DAILY AT BEDTIME valACYclovir (VALTREX) 1 gram tablet Take 1 tablet by mouth once daily primidone (MYSOLINE) 50 mg tablet TAKE 1 TABLET BY MOUTH ONCE DAILY AT BEDTIME amLODIPine (NORVASC) 10 mg tablet Take 1 tablet by mouth once daily potassium chloride 20 mEq TbER Take 2 tablets by mouth twice daily pregabalin (LYRICA) 75 mg capsule Take 1 capsule by mouth three times a day for 180 days. indapamide (LOZOL) 2.5 mg tablet Take 1 tablet by mouth once daily losartan (COZAAR) 100 mg tablet Take 1 tablet by mouth once daily. albuterol HFA (VENTOLIN HFA) 90 mcg/actuation inhaler Inhale 2 Puffs as instructed every 4 hours as needed for wheezing/shortness of breath. ascorbic acid, vitamin C, (VITAMIN C) 500 mg tablet 1 tab(s) orally once a day for 30 day(s) betamethasone dipropionate 0.05 % ointment Apply to affected area twice daily. Lancets Use with blood glucose test once daily metFORMIN ER (GLUCOPHAGE XR) 500 mg 24 hr tablet Take 2 tablets by mouth daily with breakfast. (Patient not taking: Reported on 02/19/2025) No current facility-administered medications for this visit. ALLERGIES Allergen Reactions Aspirin Shortness of Breath Lisinopril Swelling Latex Rash Penicillins Hives, Rash Sulfamethoxazole Hives Trileptal [Oxcarbaz* Other: See Comments Balance Problems after taking for a few days Resp 18 Ht 5' 1 (1.55m) Wt 144 lb (65.3kg) BMI 27.22 kg/(m2). ROS: Denies any significant change to relevant ROS EXAM: Gene (more content not included)... Normal [facility] CNOVon 02-12-2025 CNOV Office Visit (AGCFM) AKILA DE LOS SANTOS ([id number]) 1945 F Date Time Provider Department 02/12/25 3:00 PM LEAVITT, SYDNEE [facility] During your visit today, we recorded the following information about you: Temperature Pulse Respiration Blood pressure 97.5 degrees 62/minute 18/minute 139/60 Weight 65.6 kg Leavitt, Sydnee, 02/12/2025 4:56 PM Signed [facility] [address] [facility] / [address] [place] [address] Visit Date: February 12, 2025 Name: Akila De Los Santos Date of : 1945 MRN/E #: [id number] Chief Complaint: No chief complaint on file. Subjective Akila De Los Santos is a 79 year old female here with the following complaint(s): Bilateral tremor of upper upper extremities -Reports worsening symptoms over the last week The history is provided by the patient. T2DM - Comorbidities: HTN - Meds: Metformin 500 mg BID - Statin: Crestor 10 mg - ENZO/ARB: Losartan 100 mg - Asa: No - Albumin/creatinine ratio: Albumin/Creat Ratio (mg/g) Date Value 10/09/2024 93 (H) - Medication compliance: No issues remembering AM meds, but sometimes forget bedtime meds - New symptoms: No - A1c: 6.1 - 02/12/2025 30 day Freestyle linda - Time in target 98% - Low glucose: 1 - Average glucose: 107 Tremors - Previously controlled with diet - Only changes to medication is starting metformin - Noticed tremor was gradually worsening over the past month but got worse in the past week - Dropping things, hard to press buttons on phone Vision worsening - No pain in eyes, floaters or stars, no curtain obscuring view or pressure - Focusing image has become difficult - Follows with optometry - Last seen on 11/09/2024 ALLERGIES Allergen Reactions Aspirin Shortness of Breath Lisinopril Swelling Latex Rash Penicillins Hives, Rash Sulfamethoxazole Hives Trileptal [Oxcarbaz* Other: See Comments Balance Problems after taking for a few days Current Outpatient Medications Medication Sig fluticasone-salmeterol (ADVAIR) 500-50 mcg/dose dsdv INHALE 1 PUFF TWICE DAILY citalopram (CELEXA) 20 mg tablet Take 1 tablet by mouth once daily solifenacin (VESICARE) 5 mg tablet Take 1 tablet by mouth once daily rosuvastatin (CRESTOR) 10 mg tablet Take 1 tablet by mouth daily at bedtime. traMADol (ULTRAM) 50 mg tablet Take 1 tablet by mouth at bedtime as needed for pain for up to 60 days. Patient should start on February 01, 2025. Lancets Use with blood glucose test once daily blood sugar diagnostic test strip Use with blood glucose test once daily Lancets Use with blood glucose test once daily alcohol swabs Use with blood glucose test once daily Blood-Glucose Sensor (LionWorksSTYLE LINDA 2 PLUS SENSOR) bronson Use as directed to check blood sugar 3 times daily flash glucose scanning reader (FREESTYLE LINDA 2 READER) Use as directed to check blood glucose 3 times daily montelukast (SINGULAIR) 10 mg tablet TAKE 1 TABLET BY MOUTH ONCE DAILY AT BEDTIME valACYclovir (VALTREX) 1 gram tablet Take 1 tablet by mouth once daily primidone (MYSOLINE) 50 mg tablet TAKE 1 TABLET BY MOUTH ONCE DAILY AT BEDTIME amLODIPine (NORVASC) 10 mg tablet Take 1 tablet by mouth once daily potassium chloride 20 mEq TbER Take 2 tablets by mouth twice daily pregabalin (LYRICA) 75 mg capsule Take 1 capsule by mouth three times a day for 180 days. metFORMIN ER (GLUCOPHAGE XR) 500 mg 24 hr tablet Take 2 tablets by mouth daily with breakfast. indapamide (LOZOL) 2.5 mg tablet Take 1 tablet by mouth once daily losartan (COZAAR) 100 mg tablet Take 1 tablet by mouth once daily. albuterol HFA (VENTOLIN HFA) 90 mcg/actuation inhaler Inhale 2 Puffs as instructed every 4 hours as needed for wheezing/shortness of breath. ascorbic acid, vitamin C, (VITAMIN C) 500 mg tablet 1 tab(s) orally once a day for 30 day(s) betamethasone dipropionate 0.05 % ointment Apply to affected area twice daily. No current facility-administered medications for this visit. I have confirmed and edited as necessary the chief complaint, medications, past medical, family and social histories. Objective 02/12/25 1504 02/12/25 1506 BP: 140/73 143/59 Pulse: 62 Resp: 18 Temp: 36.4 ?C (97.5 ?F) TempSrc: Temporal SpO2: 100% Weight: 144 lb 9.6 oz (65.6 kg) Body mass index is 27.32 kg/m?. PHQ-9 More data exists 01/02/2024 04/09/2024 07/15/2024 09/18/2024 01/22/2025 PHQ-9 Scores Little interest or pleasure in doing things: Not at all Not at all Not at all Not at all Not at all Feeling down, depressed, or hopeless: Not at all Not at all Not at all Not at all Not at all Trouble falling or staying asleep, or sleeping too much Not at all - - - - Feeling tired or having little energy Several days - - - - Poor appetite or overeating Not at (more content not included)... Normal [facility] CNOVon 02-05-2025 CNOV Office Visit (AGPOB1 ) AKILA DE LOS SANTOS ([id number]) 1945 F Date Time Provider Department 02/05/25 2:45 PM KATYA MARTINEZ AGPOB1 During your visit today, we recorded the following information about you: Respiration Weight Height 18/minute 65.8 kg 1.549 m Katie Calloway LPN 02/05/2025 2:55 PM Signed Location of pain: right knee Symptoms started: YEARS Last visit for this issue: 1 week ago 01/29/2025 Any additional/new injury since last visit: NO BWC: NO Pain at rest: 6/10 Pain at times up to : 8/10 Treatment for this issue since last visit: N/A Additional History related to concern: N/A Imaging since last visit: N/A Katie Calloway LPN 02/05/2025 2:55 PM Signed Prepared medication injection Euflexxa for provider to administer to patient per order. Once prepared medication was handed to provider to administer to patient. Katie Calloway LPN Katya Martinez, DO 02/05/2025 2:55 PM Signed HPI: The patient is a 79-year-old female presenting for administration of her second knee injection. Akila is a 79-year-old female with a history of knee pain, presenting for a follow-up visit and second knee injection. Knee Pain: - No issues following the first knee injection last week; denies redness, warmth, or signs of infection. - No new knee injuries since the last visit. - Continues to use a cane for ambulation. - Not wearing compression stockings; wearing knee-high pantyhose. - Reports persistent swelling in the knee, particularly around the patella. - Denies any questions or concerns about receiving the second injection today. History of Osteoarthritis over 21 yo? Yes Any altered function? Moderate pain with weightbearing activity Reviewed pain scale and intake details associated with this visit documented in note PAST MEDICAL HISTORY Diagnosis Date 4th nerve palsy, left Asthma (HCC) Diabetes mellitus (HCC) DJD (degenerative joint disease) Left hand pain Osteoarthritis of multiple joints PAD (peripheral artery disease) TIA (transient ischemic attack) PAST SURGICAL HISTORY Procedure Laterality Date CATARACT EXTRACTION HX Left 11/2016 CATARACT EXTRACTION HX Right 11/2018 TOTAL ABDOM HYSTERECTOMY SOCIAL HISTORY[1] Current Outpatient Medications Medication Sig solifenacin (VESICARE) 5 mg tablet Take 1 tablet by mouth once daily rosuvastatin (CRESTOR) 10 mg tablet Take 1 tablet by mouth daily at bedtime. traMADol (ULTRAM) 50 mg tablet Take 1 tablet by mouth at bedtime as needed for pain for up to 60 days. Patient should start on February 01, 2025. fluticasone-vilanterol (BREO ELLIPTA) 200-25 mcg/dose inhaler 1 puff(s) inhaled once a day; Duration: 30 day(s) Lancets Use with blood glucose test once daily blood sugar diagnostic test strip Use with blood glucose test once daily Lancets Use with blood glucose test once daily alcohol swabs Use with blood glucose test once daily Blood-Glucose Sensor (FREESTYLE LINDA 2 PLUS SENSOR) bronson Use as directed to check blood sugar 3 times daily flash glucose scanning reader (FREESTRapid Pathogen Screening LINDA 2 READER) Use as directed to check blood glucose 3 times daily montelukast (SINGULAIR) 10 mg tablet TAKE 1 TABLET BY MOUTH ONCE DAILY AT BEDTIME valACYclovir (VALTREX) 1 gram tablet Take 1 tablet by mouth once daily primidone (MYSOLINE) 50 mg tablet TAKE 1 TABLET BY MOUTH ONCE DAILY AT BEDTIME amLODIPine (NORVASC) 10 mg tablet Take 1 tablet by mouth once daily potassium chloride 20 mEq TbER Take 2 tablets by mouth twice daily pregabalin (LYRICA) 75 mg capsule Take 1 capsule by mouth three times a day for 180 days. metFORMIN ER (GLUCOPHAGE XR) 500 mg 24 hr tablet Take 2 tablets by mouth daily with breakfast. indapamide (LOZOL) 2.5 mg tablet Take 1 tablet by mouth once daily losartan (COZAAR) 100 mg tablet Take 1 tablet by mouth once daily. citalopram (CELEXA) 20 mg tablet Take 1 tablet by mouth once daily fluticasone-salmeterol (WIXELA INHUB) 500-50 mcg/dose dsdv Inhale 1 Puff as instructed two times a day. albuterol HFA (VENTOLIN HFA) 90 mcg/actuation inhaler Inhale 2 Puffs as instructed every 4 hours as needed for wheezing/shortness of breath. ascorbic acid, vitamin C, (VITAMIN C) 500 mg tablet 1 tab(s) orally once a day for 30 day(s) betamethasone dipropionate 0.05 % ointment Apply to affected area twice daily. No current facility-administered medications for this visit. ALLERGIES Allergen Reactions Aspirin Shortness of Breath Lisinopril Swelling Latex Rash Penicillins Hives, Rash Sulfamethoxazole Hives Trileptal [Oxcarbaz* Other: See Comments Balance Problems after taking for a few days Resp 18 Ht 5' 1 (1.55m) Wt 145 lb (65.8kg) BMI 27.41 kg/(m2). ROS: I have reviewed and agree with the ROS performed and documented within this office visit Skin: (-) injection site erythema, (-) injection site warmt (more content not included)... Normal [facility] CNOVon 01-29-2025 CNOV Office Visit (AGPOB1 ) AKILA DE LOS SANTOS ([id number]) 1945 F Date Time Provider Department 01/29/25 11:00 AM KATYA MARTINEZ AGPOB1 During your visit today, we recorded the following information about you: Respiration Weight Height 20/minute 65.8 kg 1.549 m Sierra Villalba MA 02/01/2025 2:21 PM Signed Location of pain: Right knee Symptoms started: Last year Injury: No BWC: No Seen by Dr Norris, Dr Calzada or Dr Martinez in past 3 years?: [place] Pain at rest: 07/02 Pain at times up to : 11/01 Seen for this injury already: [place] Previous treatment: Injections Previous imagin07/16/24 Previous surgery/fracture: No Previous injection: No Additional History related to concern: None . REVIEW OF SYSTEMS: GENERAL: Well developed, well nourished. No acute distress PAIN: Pain in the right knee for about 1 year CARDIOVASCULAR: Negative for chest pain, leg swelling and palpations. MSK: Negative for joint swelling SKIN: Negative for lesions, rash, itching, metal sensitivity NEURO: Negative for seizure, trauma, numbness/tingling of extremities. ENDOCRINE: Positive for diabetic associated symptoms HEMATOLOGY: Negative for excessive bleeding, clots, bleeding disorders. Katya Martinez DO 02/01/2025 2:21 PM Signed HPI: The patient is a 79-year-old female presenting for intra-articular Euflexxa gel injection of the right knee. Right Knee Pain: - Has received cortisone injections in the past; denies previous gel injections. - Uses a cane intermittently for ambulation and weight-bearing support. - Denies recent injuries. - No known allergies to Betadine or adhesives. History of Osteoarthritis over 21 yo? Yes Any altered function? Moderate pain with weightbearing activity Reviewed pain scale and intake details associated with this visit documented in note PAST MEDICAL HISTORY Diagnosis Date 4th nerve palsy, left Asthma (HCC) Diabetes mellitus (HCC) DJD (degenerative joint disease) Left hand pain Osteoarthritis of multiple joints PAD (peripheral artery disease) TIA (transient ischemic attack) PAST SURGICAL HISTORY Procedure Laterality Date CATARACT EXTRACTION HX Left 11/2016 CATARACT EXTRACTION HX Right 11/2018 TOTAL ABDOM HYSTERECTOMY SOCIAL HISTORY[1] Current Outpatient Medications Medication Sig solifenacin (VESICARE) 5 mg tablet Take 1 tablet by mouth once daily rosuvastatin (CRESTOR) 10 mg tablet Take 1 tablet by mouth daily at bedtime. traMADol (ULTRAM) 50 mg tablet Take 1 tablet by mouth at bedtime as needed for pain for up to 60 days. Patient should start on February 01, 2025. fluticasone-vilanterol (BREO ELLIPTA) 200-25 mcg/dose inhaler 1 puff(s) inhaled once a day; Duration: 30 day(s) Lancets Use with blood glucose test once daily blood sugar diagnostic test strip Use with blood glucose test once daily Lancets Use with blood glucose test once daily alcohol swabs Use with blood glucose test once daily Blood-Glucose Sensor (FREESTYLE LINDA 2 PLUS SENSOR) bronson Use as directed to check blood sugar 3 times daily flash glucose scanning reader (FREESTYLE LINDA 2 READER) Use as directed to check blood glucose 3 times daily montelukast (SINGULAIR) 10 mg tablet TAKE 1 TABLET BY MOUTH ONCE DAILY AT BEDTIME valACYclovir (VALTREX) 1 gram tablet Take 1 tablet by mouth once daily primidone (MYSOLINE) 50 mg tablet TAKE 1 TABLET BY MOUTH ONCE DAILY AT BEDTIME amLODIPine (NORVASC) 10 mg tablet Take 1 tablet by mouth once daily potassium chloride 20 mEq TbER Take 2 tablets by mouth twice daily pregabalin (LYRICA) 75 mg capsule Take 1 capsule by mouth three times a day for 180 days. metFORMIN ER (GLUCOPHAGE XR) 500 mg 24 hr tablet Take 2 tablets by mouth daily with breakfast. indapamide (LOZOL) 2.5 mg tablet Take 1 tablet by mouth once daily losartan (COZAAR) 100 mg tablet Take 1 tablet by mouth once daily. citalopram (CELEXA) 20 mg tablet Take 1 tablet by mouth once daily fluticasone-salmeterol (WIXELA INHUB) 500-50 mcg/dose dsdv Inhale 1 Puff as instructed two times a day. albuterol HFA (VENTOLIN HFA) 90 mcg/actuation inhaler Inhale 2 Puffs as instructed every 4 hours as needed for wheezing/shortness of breath. ascorbic acid, vitamin C, (VITAMIN C) 500 mg tablet 1 tab(s) orally once a day for 30 day(s) betamethasone dipropionate 0.05 % ointment Apply to affected area twice daily. No current facility-administered medications for this visit. ALLERGIES Allergen Reactions Aspirin Shortness of Breath Lisinopril Swelling Latex Rash Penicillins Hives, Rash Sulfamethoxazole Hives Trileptal [Oxcarbaz* Other: See Comments Balance Problems after taking for a few days Resp 20 Ht 5' 1 (1.55m) Wt 145 lb (65.8kg) BMI 27.41 kg/(m2). ROS: I have reviewed and agree with the ROS performed and documented within this office visit Musculoskeletal: (+) ambulatio (more content not included)... [facility] (AGPOB1) AKILA DE LOS SANTOS ([id number]) 1945 F Date Time Provider Department 01/14/25 ARVIND HAIDER NOEB1 During your visit today, we recorded the following information about you: Jean Paul Fu 01/14/2025 11:33 AM Signed Approval request follow up - fax approval not received from [facility] yet. Went online, found approval on [facility]. Referral entered Sending to Alfred for scheduling Thank you Jean Paul Barone [employer]. Allergies As of Date: 01/14/2025 Noted Allergy Reaction ASPIRIN 03/17/2015 12 - Shortness of Breath LISINOPRIL 07/17/2018 7 - Swelling LATEX 03/17/2015 2 - Rash PENICILLINS 03/17/2015 4 - Hives 2 - Rash SULFAMETHOXAZOLE 03/17/2015 4 - Hives TRILEPTAL (OXCARBAZEPINE) 01/21/2023 14 - Other: See Comments Comments: Balance Problems after taking for a few days Date Reviewed: 01/09/2025 Reviewed by: Sharmila Fernandez APRN.MULTIPLE SLIDE OPERATOR - Fully Assessed Reason for Visit: Injection (Hyaluronic Acid) [1130] Insurance Inquiry [1462] Prescriptions as of 01/14/2025 - traMADol (ULTRAM) 50 mg tablet Take 1 tablet by mouth at bedtime as needed for pain for up to 60 days. Patient should start on February 01, 2025. - fluticasone-vilanterol (BREO ELLIPTA) 200-25 mcg/dose inhaler 1 puff(s) inhaled once a day; Duration: 30 day(s) - Lancets Use with blood glucose test once daily - blood sugar diagnostic test strip Use with blood glucose test once daily - Lancets Use with blood glucose test once daily - alcohol swabs Use with blood glucose test once daily - Blood-Glucose Sensor (FREESTYLE LINDA 2 PLUS SENSOR) bronson Use as directed to check blood sugar 3 times daily - flash glucose scanning reader (FREESTYLE LINDA 2 READER) Use as directed to check blood glucose 3 times daily - montelukast (SINGULAIR) 10 mg tablet TAKE 1 TABLET BY MOUTH ONCE DAILY AT BEDTIME - valACYclovir (VALTREX) 1 gram tablet Take 1 tablet by mouth once daily - primidone (MYSOLINE) 50 mg tablet TAKE 1 TABLET BY MOUTH ONCE DAILY AT BEDTIME - amLODIPine (NORVASC) 10 mg tablet Take 1 tablet by mouth once daily - potassium chloride 20 mEq TbER Take 2 tablets by mouth twice daily - pregabalin (LYRICA) 75 mg capsule Take 1 capsule by mouth three times a day for 180 days. - metFORMIN ER (GLUCOPHAGE XR) 500 mg 24 hr tablet Take 2 tablets by mouth daily with breakfast. - rosuvastatin (CRESTOR) 10 mg tablet TAKE 1 TABLET BY MOUTH ONCE DAILY AT BEDTIME - solifenacin (VESICARE) 5 mg tablet Take 1 tablet by mouth once daily - indapamide (LOZOL) 2.5 mg tablet Take 1 tablet by mouth once daily - losartan (COZAAR) 100 mg tablet Take 1 tablet by mouth once daily. - citalopram (CELEXA) 20 mg tablet Take 1 tablet by mouth once daily - fluticasone-salmeterol (WIXELA INHUB) 500-50 mcg/dose dsdv Inhale 1 Puff as instructed two times a day. - albuterol HFA (VENTOLIN HFA) 90 mcg/actuation inhaler Inhale 2 Puffs as instructed every 4 hours as needed for wheezing/shortness of breath. - ascorbic acid, vitamin C, (VITAMIN C) 500 mg tablet 1 tab(s) orally once a day for 30 day(s) - betamethasone dipropionate 0.05 % ointment Apply to affected area twice daily. 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 Hypertension [I10] 04/25/1969 Type 2 diabetes mellitus without retinopathy (H*09/07/2021 Pseudophakia [Z96.1] 09/07/2021 Dry eye syndrome of both eyes [H04.123] 09/07/2021 Meibomian gland dysfunction (MGD) of upper and *09/07/2021 Posterior vitreous detachment, bilateral [H43.8*09/07/2021 Presbyopia of both eyes [H52.4] 09/07/2021 Chronic left shoulder pain [M25.512, G89.29] 10/31/2021 Neck pain [M54.2] 10/31/2021 Arthritis of both knees [M17.0] 02/16/2022 Asthma [J45.909] 04/25/1949 Degenerative disc disease at L5-S1 level [M51.3*12/21/2001 Impingement syndrome of left shoulder region [M*02/16/2022 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 *02/16/2022 Scoliosis [M41.9] 02/16/2022 Sacroiliitis (HCC) [M46.1] 06/20/2023 4th nerve palsy, 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] 01/07/2025 Encounter Status:Closed by MARIBELL SECURITY OFFICER JEAN PAUL DEMPSEY on 01/14/25 [facility] 01-10-2025 CNPN Telephone (AGPOB1) AKILA DE LOS SANTOS ([id number]) 1945 F Date Time Provider Department 01/10/25 ARVIND HAIDER NOEB1 During your visit today, we recorded the following information about you: Allergies As of Date: 01/10/2025 Noted Allergy Reaction ASPIRIN 03/17/2015 12 - Shortness of Breath LISINOPRIL 07/17/2018 7 - Swelling LATEX 03/17/2015 2 - Rash PENICILLINS 03/17/2015 4 - Hives 2 - Rash SULFAMETHOXAZOLE 03/17/2015 4 - Hives TRILEPTAL (OXCARBAZEPINE) 01/21/2023 14 - Other: See Comments Comments: Balance Problems after taking for a few days Date Reviewed: 01/09/2025 Reviewed by: Sharmila Fernandez APRN.MULTIPLE SLIDE OPERATOR - Fully Assessed Prescriptions as of 01/10/2025 - traMADol (ULTRAM) 50 mg tablet Take 1 tablet by mouth at bedtime as needed for pain for up to 60 days. Patient should start on February 01, 2025. - fluticasone-vilanterol (BREO ELLIPTA) 200-25 mcg/dose inhaler 1 puff(s) inhaled once a day; Duration: 30 day(s) - Lancets Use with blood glucose test once daily - blood sugar diagnostic test strip Use with blood glucose test once daily - Lancets Use with blood glucose test once daily - alcohol swabs Use with blood glucose test once daily - Blood-Glucose Sensor (FREESTYLE LINDA 2 PLUS SENSOR) bronson Use as directed to check blood sugar 3 times daily - flash glucose scanning reader (FREESTYLE LINDA 2 READER) Use as directed to check blood glucose 3 times daily - montelukast (SINGULAIR) 10 mg tablet TAKE 1 TABLET BY MOUTH ONCE DAILY AT BEDTIME - valACYclovir (VALTREX) 1 gram tablet Take 1 tablet by mouth once daily - primidone (MYSOLINE) 50 mg tablet TAKE 1 TABLET BY MOUTH ONCE DAILY AT BEDTIME - amLODIPine (NORVASC) 10 mg tablet Take 1 tablet by mouth once daily - potassium chloride 20 mEq TbER Take 2 tablets by mouth twice daily - pregabalin (LYRICA) 75 mg capsule Take 1 capsule by mouth three times a day for 180 days. - metFORMIN ER (GLUCOPHAGE XR) 500 mg 24 hr tablet Take 2 tablets by mouth daily with breakfast. - rosuvastatin (CRESTOR) 10 mg tablet TAKE 1 TABLET BY MOUTH ONCE DAILY AT BEDTIME - solifenacin (VESICARE) 5 mg tablet Take 1 tablet by mouth once daily - indapamide (LOZOL) 2.5 mg tablet Take 1 tablet by mouth once daily - losartan (COZAAR) 100 mg tablet Take 1 tablet by mouth once daily. - citalopram (CELEXA) 20 mg tablet Take 1 tablet by mouth once daily - fluticasone-salmeterol (WIXELA INHUB) 500-50 mcg/dose dsdv Inhale 1 Puff as instructed two times a day. - albuterol HFA (VENTOLIN HFA) 90 mcg/actuation inhaler Inhale 2 Puffs as instructed every 4 hours as needed for wheezing/shortness of breath. - ascorbic acid, vitamin C, (VITAMIN C) 500 mg tablet 1 tab(s) orally once a day for 30 day(s) - betamethasone dipropionate 0.05 % ointment Apply to affected area twice daily. 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/11/2020 Hypertension [I10] 04/25/1969 Type 2 diabetes mellitus without retinopathy (H*09/07/2021 Pseudophakia [Z96.1] 09/07/2021 Dry eye syndrome of both eyes [H04.123] 09/07/2021 Meibomian gland dysfunction (MGD) of upper and *09/07/2021 Posterior vitreous detachment, bilateral [H43.8*09/07/2021 Presbyopia of both eyes [H52.4] 09/07/2021 Chronic left shoulder pain [M25.512, G89.29] 10/31/2021 Neck pain [M54.2] 10/31/2021 Arthritis of both knees [M17.0] 02/16/2022 Asthma [J45.909] 04/25/1949 Degenerative disc disease at L5-S1 level [M51.3*12/21/2001 Impingement syndrome of left shoulder region [M*02/16/2022 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 *02/16/2022 Scoliosis [M41.9] 02/16/2022 Sacroiliitis (HCC) [M46.1] 06/20/2023 4th nerve palsy, 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] 01/07/2025 Encounter Status:Closed by ALFRED HERNANDEZ on 01/10/25 [facility] CNOVon 01-09-2025 CNOV Office Visit (AGSPINE3) AKILA DE LOS SANTOS ([id number]) 1945 F Date Time Provider Department 01/09/25 1:00 PM SHARMILA FERNANDEZ AGSPINE3 During your visit today, we recorded the following information about you: Pulse Respiration 77/minute 14/minute Radha Garcia MA 01/09/2025 2:03 PM Signed Review of Systems Constitutional: Positive for activity change. Negative for chills, fever and unexpected weight change. Gastrointestinal: Negative for bowel retention or incontinence Genitourinary: Negative for difficulty urinating. Negative for bladder retention or incontinence Musculoskeletal: Positive for back pain, gait problem, joint swelling, myalgias, neck pain and neck stiffness. Negative for arthralgias. Neurological: Negative for weakness, numbness and headaches. Psychiatric/Behavioral : Negative for dysphoric mood, sleep disturbance and suicidal ideas. The patient is not nervous/anxious. Sharmila Fernandez APRN.MULTIPLE SLIDE OPERATOR 01/09/2025 2:03 PM Signed [facility] Today's Date: 11/12/2024 Name: Akila De Los Santos : 1945 Purpose: Follow-up Patient Evaluation - This is an established patient, returning today for continued evaluation and management of the chief complaint noted below Chief complaint: back and hip pain Pertinent Past Medical History: asthma, DM2, PAD, TIA Pertinent Past Surgeries: none Plan at last visit: (Seen on 11/18/24 by Marcial Cruz CNP) She stated no pain reduction following completion of left greater trochanter bursa injection on 10/15/2024. She denied any recent imaging studies of her hips. She stated that she continues to note benefit from taking her pregabalin and her tramadol and reduction of pain and maintenance of her functional status in order to continue to be able to perform her activities of daily living and is requesting refills for these medications today. She is wondering about treatment options for her left hip pain and would like to discuss today as well. Interval History: Overall pain and functional disability since last visit: Worse New Complaints since last visit: Yes Current Pain Medications: Neuropathics: Lyrica 50 mg TID NSAIDS: Muscle Relaxants: Topicals: Other Prescription or OTC Pain Medications: Tylenol Opioids (when applicable): Tramadol 50 mg daily as needed Anti-depressants or Mood-Stabilizers: Celexa Anti-Coagulants: None 07/18/2023 10/10/2023 01/02/2024 03/05/2024 04/27/2024 09/04/2024 11/12/2024 AG SPINE COMBINATION Questionnaire URINE DRUG SCREEN URINE DRUG SCREEN URINE DRUG SCREEN URINE DRUG SCREEN URINE DRUG SCREEN URINE DRUG SCREEN URINE DRUG SCREEN Completed Date 07/18/2023 10/10/2023 01/02/2024 03/05/2024 04/27/2024 09/04/2024 11/12/2024 Questionnaire NA/OIC NA/OIC NA/OIC NA/OIC Completed Date 07/18/2023 01/02/2024 03/05/2024 09/04/2024 Comments AMALIA today Questionnaire Opiod Risk Tool Completed Date 04/27/2024 MEDICATION NAME tramadol STRENGTH 50 LAST FILL DATE 01/02/2025 DATE LAST DOSE TAKEN 01/08/25 (800pm) QUANTITY FILLED 30 QUANTITY REMAINING 27 (All drug screens are appropriate unless indicated otherwise) Notable Events During Course of Treatment: N/A Treatment History: PAIN PROCEDURES: DATE PROCEDURE IMPROVEMENT 12/19/24 L intra articular hip 30% 10/15/24 L GTB CI under US 0% 06/11/24 right TFESI S1 80% 11/16/23 Caudal 50-80% 08/09/2022 Bilat SI Joint 85% (01/21/2023 ) 02/01/2022 Caudal CHAZ 70% x 7 months 11/26/2021 Bilat SI Joint 85% x nearly 6 months 04/07/2021 Bilat SI Joint 90% x 6 months Data Reviewed Today: Allergies: ALLERGIES Allergen Reactions Aspirin Shortness of Breath Lisinopril Swelling Latex Rash Penicillins Hives, Rash Sulfamethoxazole Hives Trileptal [Oxcarbaz* Other: See Comments Balance Problems after taking for a few days Social History Tobacco Use Smoking status: Former Types: Cigarettes Smokeless tobacco: Never Vaping Use Vaping status: Never Used Substance Use Topics Alcohol use: Never Drug use: Never 01/06/2025 01/07/2025 INTAKE PAIN ASSESSMENT Are you having pain associated with your visit today? No Yes, Provider notified No Pain Scales Verbal (Numeric Rating or Visual Analog Scale) Pain Level 6 Pain Location Back Description Aching Duration Units Years Frequency Intermittent Intervention/Comfort measure Medication;Heat;Relaxa tion Compliance: PDMP website checked and validated on 01/09/2025 by Sharmila Fernandez APRN.MULTIPLE SLIDE OPERATOR All prescriptions have been APPROPR (more content not included)... [facility] 01-09-2025 CNPN Telephone (AGPOB1) AKILA DE LOS SANTOS ([id number]) 1945 F Date Time Provider Department 01/09/25 [facility] During your visit today, we recorded the following information about you: Allergies As of Date: 01/09/2025 Noted Allergy Reaction ASPIRIN 03/17/2015 12 - Shortness of Breath LISINOPRIL 07/17/2018 7 - Swelling LATEX 03/17/2015 2 - Rash PENICILLINS 03/17/2015 4 - Hives 2 - Rash SULFAMETHOXAZOLE 03/17/2015 4 - Hives TRILEPTAL (OXCARBAZEPINE) 01/21/2023 14 - Other: See Comments Comments: Balance Problems after taking for a few days Date Reviewed: 01/07/2025 Reviewed by: Lakia Sutherland LPN - Fully Assessed Prescriptions as of 01/09/2025 - fluticasone-vilanterol (BREO ELLIPTA) 200-25 mcg/dose inhaler 1 puff(s) inhaled once a day; Duration: 30 day(s) - Lancets Use with blood glucose test once daily - blood sugar diagnostic test strip Use with blood glucose test once daily - Lancets Use with blood glucose test once daily - alcohol swabs Use with blood glucose test once daily - Blood-Glucose Sensor (FREESTYLE LINDA 2 PLUS SENSOR) bronson Use as directed to check blood sugar 3 times daily - flash glucose scanning reader (FREESTYLE LINDA 2 READER) Use as directed to check blood glucose 3 times daily - montelukast (SINGULAIR) 10 mg tablet TAKE 1 TABLET BY MOUTH ONCE DAILY AT BEDTIME - valACYclovir (VALTREX) 1 gram tablet Take 1 tablet by mouth once daily - primidone (MYSOLINE) 50 mg tablet TAKE 1 TABLET BY MOUTH ONCE DAILY AT BEDTIME - amLODIPine (NORVASC) 10 mg tablet Take 1 tablet by mouth once daily - potassium chloride 20 mEq TbER Take 2 tablets by mouth twice daily - traMADol (ULTRAM) 50 mg tablet Take 1 tablet by mouth at bedtime as needed for pain for up to 60 days. - pregabalin (LYRICA) 75 mg capsule Take 1 capsule by mouth three times a day for 180 days. - metFORMIN ER (GLUCOPHAGE XR) 500 mg 24 hr tablet Take 2 tablets by mouth daily with breakfast. - rosuvastatin (CRESTOR) 10 mg tablet TAKE 1 TABLET BY MOUTH ONCE DAILY AT BEDTIME - solifenacin (VESICARE) 5 mg tablet Take 1 tablet by mouth once daily - indapamide (LOZOL) 2.5 mg tablet Take 1 tablet by mouth once daily - losartan (COZAAR) 100 mg tablet Take 1 tablet by mouth once daily. - citalopram (CELEXA) 20 mg tablet Take 1 tablet by mouth once daily - fluticasone-salmeterol (WIXELA INHUB) 500-50 mcg/dose dsdv Inhale 1 Puff as instructed two times a day. - albuterol HFA (VENTOLIN HFA) 90 mcg/actuation inhaler Inhale 2 Puffs as instructed every 4 hours as needed for wheezing/shortness of breath. - ascorbic acid, vitamin C, (VITAMIN C) 500 mg tablet 1 tab(s) orally once a day for 30 day(s) - betamethasone dipropionate 0.05 % ointment Apply to affected area twice daily. 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 Hypertension [I10] 04/25/1969 Type 2 diabetes mellitus without retinopathy (H*09/07/2021 Pseudophakia [Z96.1] 09/07/2021 Dry eye syndrome of both eyes [H04.123] 09/07/2021 Meibomian gland dysfunction (MGD) of upper and *09/07/2021 Posterior vitreous detachment, bilateral [H43.8*09/07/2021 Presbyopia of both eyes [H52.4] 09/07/2021 Chronic left shoulder pain [M25.512, G89.29] 10/31/2021 Neck pain [M54.2] 10/31/2021 Arthritis of both knees [M17.0] 02/16/2022 Asthma [J45.909] 04/25/1949 Degenerative disc disease at L5-S1 level [M51.3*12/21/2001 Impingement syndrome of left shoulder region [M*02/16/2022 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 *02/16/2022 Scoliosis [M41.9] 02/16/2022 Sacroiliitis (HCC) [M46.1] 06/20/2023 4th nerve palsy, 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] 01/07/2025 Encounter Status:Closed by ALFRED HERNANDEZ on 01/09/25 [facility]ie 01-08-2025 CNPN Telephone (AGPOB1) AKILA DE LOS SANTOS ([id number]) 1945 F Date Time Provider Department 01/08/25 RAVIND HAIDER During your visit today, we recorded the following information about you: Maribell Gray PreetJean Paul Lisa 01/08/2025 10:59 AM Signed Submitted request for authorization through [facility]/Availity Review in progress Request tracking ID# [id number] Thank you Jean Paul Barone Film Process Operator Preet Allergies As of Date: 01/08/2025 Noted Allergy Reaction ASPIRIN 03/17/2015 12 - Shortness of Breath LISINOPRIL 07/17/2018 7 - Swelling LATEX 03/17/2015 2 - Rash PENICILLINS 03/17/2015 4 - Hives 2 - Rash SULFAMETHOXAZOLE 03/17/2015 4 - Hives TRILEPTAL (OXCARBAZEPINE) 01/21/2023 14 - Other: See Comments Comments: Balance Problems after taking for a few days Date Reviewed: 01/07/2025 Reviewed by: Lakia Sutherland LPN - Fully Assessed Reason for Visit: Injection (Hyaluronic Acid) [1130] Prescriptions as of 01/08/2025 - fluticasone-vilanterol (BREO ELLIPTA) 200-25 mcg/dose inhaler 1 puff(s) inhaled once a day; Duration: 30 day(s) - Lancets Use with blood glucose test once daily - blood sugar diagnostic test strip Use with blood glucose test once daily - Lancets Use with blood glucose test once daily - alcohol swabs Use with blood glucose test once daily - Blood-Glucose Sensor (FREESTYLE LINDA 2 PLUS SENSOR) bronson Use as directed to check blood sugar 3 times daily - flash glucose scanning reader (FREESTYLE LINDA 2 READER) Use as directed to check blood glucose 3 times daily - montelukast (SINGULAIR) 10 mg tablet TAKE 1 TABLET BY MOUTH ONCE DAILY AT BEDTIME - valACYclovir (VALTREX) 1 gram tablet Take 1 tablet by mouth once daily - primidone (MYSOLINE) 50 mg tablet TAKE 1 TABLET BY MOUTH ONCE DAILY AT BEDTIME - amLODIPine (NORVASC) 10 mg tablet Take 1 tablet by mouth once daily - potassium chloride 20 mEq TbER Take 2 tablets by mouth twice daily - traMADol (ULTRAM) 50 mg tablet Take 1 tablet by mouth at bedtime as needed for pain for up to 60 days. - pregabalin (LYRICA) 75 mg capsule Take 1 capsule by mouth three times a day for 180 days. - metFORMIN ER (GLUCOPHAGE XR) 500 mg 24 hr tablet Take 2 tablets by mouth daily with breakfast. - rosuvastatin (CRESTOR) 10 mg tablet TAKE 1 TABLET BY MOUTH ONCE DAILY AT BEDTIME - solifenacin (VESICARE) 5 mg tablet Take 1 tablet by mouth once daily - indapamide (LOZOL) 2.5 mg tablet Take 1 tablet by mouth once daily - losartan (COZAAR) 100 mg tablet Take 1 tablet by mouth once daily. - citalopram (CELEXA) 20 mg tablet Take 1 tablet by mouth once daily - fluticasone-salmeterol (WIXELA INHUB) 500-50 mcg/dose dsdv Inhale 1 Puff as instructed two times a day. - albuterol HFA (VENTOLIN HFA) 90 mcg/actuation inhaler Inhale 2 Puffs as instructed every 4 hours as needed for wheezing/shortness of breath. - ascorbic acid, vitamin C, (VITAMIN C) 500 mg tablet 1 tab(s) orally once a day for 30 day(s) - betamethasone dipropionate 0.05 % ointment Apply to affected area twice daily. 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/2020 Hypertension [I10] 04/25/1969 Type 2 diabetes mellitus without retinopathy (H*09/07/2021 Pseudophakia [Z96.1] 09/07/2021 Dry eye syndrome of both eyes [H04.123] 09/07/2021 Meibomian gland dysfunction (MGD) of upper and *09/07/2021 Posterior vitreous detachment, bilateral [H43.8*09/07/2021 Presbyopia of both eyes [H52.4] 09/07/2021 Chronic left shoulder pain [M25.512, G89.29] 10/31/2021 Neck pain [M54.2] 10/31/2021 Arthritis of both knees [M17.0] 02/16/2022 Asthma [J45.909] 04/25/1949 Degenerative disc disease at L5-S1 level [M51.3*12/21/2001 Impingement syndrome of left shoulder region [M*02/16/2022 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 *02/16/2022 Scoliosis [M41.9] 02/16/2022 Sacroiliitis (HCC) [M46.1] 06/20/2023 4th nerve palsy, 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 During your visit today, we recorded the following information about you: Temperature Pulse Blood pressure Weight 97.3 degrees 65/minute 125/74 65.8 kg Height 1.549 m Lakia Sutherland LPN 01/13/2025 9:29 PM Signed Patient assessment done with a timed up and go test. Timed up AND Go was completed by patient in 10 seconds. Nurse did not observe any gait or postural instabilities at this time. YOSELYN Santos Nkosi, MD 01/13/2025 9:29 PM Signed Akila De Los Santos is a 79 year old female here for a Medicare wellness visit. Medicare Health Risk Assessment General Health Fair Exercise: Minutes/Day 60 min class q Sat morning chair exercise). And walking. Exercise: Days/Week 2 days Alcohol: Daily Use Never Alcohol: Drinks/Day Patient does not drink Alcohol: 6 or more drinks Never Feel off balance No Concerns: Teeth/Dentures No Concerns: Sexual function No Troubled by feelings None of the above Frequency: Eating healthy diet Nearly every day ADLs requiring help Housework Safety precautions in home/vehicle Yes Smoke, vape, chews tobacco No Difficulty hearing No Difficulty seeing Yes Current Providers Specialists: I have reviewed specialist-related care of the patient in the medical record. Current care team: Patient Care Team: Betty Bueno MD as PCP - General (Family Medicine) Podiatry: in [place], Dr. Gonzalez ENT in [place]: Fabio Pain Mgt: Nicolle Ophthalmology: Porfirio Medical/Family history review Reviewed and updated problem list, medical/surgical/famil y/social history, medications, and allergies. 4th nerve palsy Opioid use review Opioid Medications (last 90 days) 11/12/2024 00:00 Opioid Medications tramadol HCl 50 mg AT BEDTIME PRN PO -Discontinued tramadol HCl 50 mg AT BEDTIME PRN PO Details Outpatient prescription Prescribed tramadol HCl (last 90 days) Does patient have risk factors for opioid abuse? No Pain overview Current pain concerns and treatment plan reviewed. Patient stable on current treatment plan. Anxiety/Depression screening Recommendation: no further intervention at this time Cognitive screening Cognitive screening reviewed and No further action needed (score 3-5). Functional Observation Was the patient's Timed Up AND Go test unsteady or >= 12 seconds? No Advance Care Planning Surrogate decision maker and/or advance care plan documented Measurements BP 125/74 Pulse 65 Temp 36.3 ?C (97.3 ?F) Ht 5' 1 (1.549 m) Wt 145 lb (65.8 kg) BMI 27.40 kg/m? Vision Screening: Right: 20/40 Left: 20/ 25 Both: 2025 Assessment/Plan Medicare annual wellness visit, subsequent (Z00.00) - Counseled on healthy diet and regular exercise - Fall avoidance information provided - Personalized prevention plan provided - Discussed need for and benefit of weight loss. BMI 27.40 kg/(m2) ASSESSMENT/PLAN: 1. Medicare annual wellness visit, subsequent - ICD9: V70.0, ICD10: Z00.00 (primary diagnosis) - Counseled on healthy diet and regular exercise - Follow up for annual exam in one year 2. 4th nerve palsy, left - ICD9: 378.53, ICD10: H49.12 - follow up with neuro-ophthalmology as referred. MD Ximena South Nkosi, MD 01/07/2025 1:59 PM Signed Screening schedule The following prevention plan is recommended: Medicare Advantage Annual Wellness Visit due on 04/25/2024 WHAT YOU CAN DO TO PREVENT FALLS Many falls can be prevented. By making some changes, you can lower your chances of falling. Four things YOU can do to prevent falls for you* and your caregiver 1. Begin a regular exercise program Exercise is one of the most important ways to lower your chances of falling. It makes you stronger and helps you feel better. Exercises that improve balance and coordination (like Dave Chi) are the most helpful. Lack of exercise leads to weakness and increases your chances of falling. Ask your doctor or health care provider about the best type of exercise program for you. 2. Have your health care provider review your medicines Have your doctor or pharmacist review all the medicines you take, even okal-zyh-qahqxwl medicines. As you get older, the way medicines work in your body can change. Some medicines, or combinations of medicines, can make you sleepy or dizzy and can cause you to fall. 3. Have your vision checked Have your eyes checked by an eye doctor at least once a year. You may be wearing the wrong glasses or have a condition like glaucoma or cataracts that limits your vision. Poor vision can increase your chances of falling. 4. Make your home safer About half of all falls happen at home. To make your home safer: Remove things you can trip over (like papers, books, clothes, and shoes) from stairs and (more content not included)... Normal [facility] 12-21-2024 [facility] Telephone (AGSPINE3) AKILA DE LOS SANTOS ([id number]) 1945 F Date Time Provider Department 12/21/24 BO VALVERDE AGSPINE3 During your visit today, we recorded the following information about you: Abena Davidson LPN 12/21/2024 10:44 AM Signed Attempted to call patient to follow-up from procedure, no answer. Message left to return call with any questions or concerns. Abena Davidson LPN Allergies As of Date: 12/21/2024 Noted Allergy Reaction ASPIRIN 03/17/2015 12 - Shortness of Breath LISINOPRIL 07/17/2018 7 - Swelling LATEX 03/17/2015 2 - Rash PENICILLINS 03/17/2015 4 - Hives 2 - Rash SULFAMETHOXAZOLE 03/17/2015 4 - Hives TRILEPTAL (OXCARBAZEPINE) 01/21/2023 14 - Other: See Comments Comments: Balance Problems after taking for a few days Date Reviewed: 12/19/2024 Reviewed by: Patricia Blandon LPN - Fully Assessed Reason for Visit: Patient Update [1234] Cmt: Post-procedure courtesy call Prescriptions as of 12/21/2024 - primidone (MYSOLINE) 50 mg tablet TAKE 1 TABLET BY MOUTH ONCE DAILY AT BEDTIME - amLODIPine (NORVASC) 10 mg tablet Take 1 tablet by mouth once daily - potassium chloride 20 mEq TbER Take 2 tablets by mouth twice daily - traMADol (ULTRAM) 50 mg tablet Take 1 tablet by mouth at bedtime as needed for pain for up to 60 days. - pregabalin (LYRICA) 75 mg capsule Take 1 capsule by mouth three times a day for 180 days. - metFORMIN ER (GLUCOPHAGE XR) 500 mg 24 hr tablet Take 2 tablets by mouth daily with breakfast. - valACYclovir (VALTREX) 1 gram tablet Take 1 tablet by mouth once daily - rosuvastatin (CRESTOR) 10 mg tablet TAKE 1 TABLET BY MOUTH ONCE DAILY AT BEDTIME - solifenacin (VESICARE) 5 mg tablet Take 1 tablet by mouth once daily - montelukast (SINGULAIR) 10 mg tablet TAKE 1 TABLET BY MOUTH ONCE DAILY AT BEDTIME - indapamide (LOZOL) 2.5 mg tablet Take 1 tablet by mouth once daily - losartan (COZAAR) 100 mg tablet Take 1 tablet by mouth once daily. - citalopram (CELEXA) 20 mg tablet Take 1 tablet by mouth once daily - fluticasone-salmeterol (WIXELA INHUB) 500-50 mcg/dose dsdv Inhale 1 Puff as instructed two times a day. - albuterol HFA (VENTOLIN HFA) 90 mcg/actuation inhaler Inhale 2 Puffs as instructed every 4 hours as needed for wheezing/shortness of breath. - ascorbic acid, vitamin C, (VITAMIN C) 500 mg tablet 1 tab(s) orally once a day for 30 day(s) - betamethasone dipropionate 0.05 % ointment Apply to affected area twice daily. 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/11/2020 Hypertension [I10] 04/25/1969 Type 2 diabetes mellitus without retinopathy (H*09/07/2021 Pseudophakia [Z96.1] 09/07/2021 Dry eye syndrome of both eyes [H04.123] 09/07/2021 Meibomian gland dysfunction (MGD) of upper and *09/07/2021 Posterior vitreous detachment, bilateral [H43.8*09/07/2021 Presbyopia of both eyes [H52.4] 09/07/2021 Chronic left shoulder pain [M25.512, G89.29] 10/31/2021 Neck pain [M54.2] 10/31/2021 Arthritis of both knees [M17.0] 02/16/2022 Asthma [J45.909] 04/25/1949 Degenerative disc disease at L5-S1 level [M51.3*12/21/2001 Impingement syndrome of left shoulder region [M*02/16/2022 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 *02/16/2022 Scoliosis [M41.9] 02/16/2022 Sacroiliitis (HCC) [M46.1] 06/20/2023 Encounter Status:Closed by ABENA DAVIDSON on 12/21/24 Normal [facility] GLUCOSE, BLOOD (POC)on 12-19 Glucose [Mass/Vol] 90 mg/dL 74 - 99 mg/dL [facility] Comment on above: Location:[facility] Spine and Pain, [facility] [place] [address], [facility] The Accu-Chek Inform II glucose meter has not been approved for testing on patients receiving intensive medical intervention or therapy and results from this point of care glucose test should not be used for patient management decisions in these cases. Inaccurate results may also occur from other interfering factors, such as N-acetylcysteine (blood concentrations of greater than 5mg/dL), galactose, extremes of hematocrit (<10 or >65), or high doses of ascorbic acid (vitamin C) greater than 3mg/dL. Consider alternate testing mechanisms (e.g. core lab, blood gas instrument) in the above situations. [facility] MRI BRAIN WO/W IVCONon 12-17 MRI BRAIN WO/W IVCON * * *Final Report* * * DATE OF EXAM: Dec 17 2024 2:27PM [facility] - MRI BRAIN WO/W IVCON / PROCEDURE REASON: Ophthalmoplegia * * * * Physician Interpretation * * * * EXAMINATION: MRI BRAIN WO/W IVCON CLINICAL HISTORY: Ophthalmoplegia . Left superior oblique palsy, intermittent TECHNIQUE: Routine skull base MRI protocol without and with contrast including diffusion images. MQ: [id number] Contrast: 6.9 mL Elucirem IV COMPARISON: CT performed 11/28/2022 RESULT: Acute Change: There is no evidence of restricted diffusion to suggest an acute infarct. Hemorrhage: No evidence of prior parenchymal hemorrhage on the provided images. Mass Lesion/ Mass Effect: No evidence of an intracranial mass or extra-axial fluid collection. No abnormal parenchymal or leptomeningeal enhancement is noted following contrast administration. No significant mass effect. Chronic Change: Scattered patchy areas of increased T2 and FLAIR signal are present in the supratentorial white matter which is a nonspecific finding but likely represents mild chronic microvascular ischemia. Parenchyma: There is mild generalized parenchymal volume loss. The brain parenchyma is otherwise within normal limits of signal intensity and morphology. Ventricles: Normal caliber and morphology. Skull Base: Hypothalamic and pituitary region are grossly normal. Craniocervical junction is normal. No significant marrow replacement process. Both cavernous sinuses enhance normally. Extraocular muscles are symmetric in size and appearance. No focal atrophy. No evidence of intraorbital mass lesion. Bilateral pseudophakia noted. No abnormal enhancement of cranial nerves. Vasculature: Major intracranial arterial structures, and dural venous sinuses show typical flow void, suggesting patency by spin echo criteria. Other: The visualized paranasal sinuses and mastoid air cells are clear. The orbits and extracranial soft tissues are unremarkable. IMPRESSION: 1. No findings to explain the patient's superior oblique palsy. 2. No evidence of infarct or hemorrhage 3. No abnormal enhancement of cranial nerves Can Machine Operator: ISADORA Transcribe Date/Time: Dec 19 2024 3:45P Dictated by : ELO KAN MD This examination was interpreted and the report reviewed and electronically signed by: ELO KAN MD on Dec 19 2024 3:54PM EST [id number] [facility]) AKILA DE LOS SANTOS ([id number]) 1945 F Date Time Provider Department 11/20/24 BETTY BUENO [facility] During your visit today, we recorded the following information about you: Jessica Martinez LPN 11/20/2024 12:02 PM Signed Patient called the office requesting medication for cough complains of wheezing and a head cold. Patient denies fever please advise. YOSELYN Smith Nkosi, MD 11/20/2024 4:45 PM Signed Sent in some [facility]-DM, but any OTC Coricidin HBP would probably be just as helpful. If hr symptoms are more nasal congestion then she can do sudafed for a few days but it can raise blood pressure. If any fever and myalgias, consider home COVID-19 testing and if not improving. Always willing to see her for an appointment if she remains concerned or is not getting better. MD Ximena South Nkosi, MD 11/20/2024 4:45 PM Signed Addended by: BETTY BUENO on: 11/20/2024 04:45 PM Modules accepted: Jessica Jaimes LPN 11/21/2024 2:32 PM Signed Spoke with Akila De Los Santos on November 21, 2024. Informed of providers detailed message, patient verbalized understanding. Patient denies questions at this time. Jessica Martinez LPN Allergies As of Date: 11/20/2024 Noted Allergy Reaction ASPIRIN 03/17/2015 12 - Shortness of Breath LISINOPRIL 07/17/2018 7 - Swelling LATEX 03/17/2015 2 - Rash PENICILLINS 03/17/2015 4 - Hives 2 - Rash SULFAMETHOXAZOLE 03/17/2015 4 - Hives TRILEPTAL (OXCARBAZEPINE) 01/21/2023 14 - Other: See Comments Comments: Balance Problems after taking for a few days Date Reviewed: 11/20/2024 Reviewed by: Yanna Feliz RD - Fully Assessed Reason for Visit: Medication Request [138] Primary Visit Diagnosis:Acute cough [R05.1] Order(s):dextromethorp armstrong-guaiFENesin (MUCINEX DM) 30-600 mg per tabletTake 1 tablet by mouth two times a day for 7 days.Disp: 14 tabletRfl: 0 Prescriptions as of 11/21/2024 - dextromethorphan-guaiF ENesin (MUCINEX DM) 30-600 mg per tablet Take 1 tablet by mouth two times a day for 7 days. - traMADol (ULTRAM) 50 mg tablet Take 1 tablet by mouth at bedtime as needed for pain for up to 60 days. - pregabalin (LYRICA) 75 mg capsule Take 1 capsule by mouth three times a day for 180 days. - metFORMIN ER (GLUCOPHAGE XR) 500 mg 24 hr tablet Take 2 tablets by mouth daily with breakfast. - valACYclovir (VALTREX) 1 gram tablet Take 1 tablet by mouth once daily - rosuvastatin (CRESTOR) 10 mg tablet TAKE 1 TABLET BY MOUTH ONCE DAILY AT BEDTIME - solifenacin (VESICARE) 5 mg tablet Take 1 tablet by mouth once daily - montelukast (SINGULAIR) 10 mg tablet TAKE 1 TABLET BY MOUTH ONCE DAILY AT BEDTIME - amLODIPine (NORVASC) 10 mg tablet Take 1 tablet by mouth once daily - primidone (MYSOLINE) 50 mg tablet TAKE 1 TABLET BY MOUTH ONCE DAILY AT BEDTIME - indapamide (LOZOL) 2.5 mg tablet Take 1 tablet by mouth once daily - losartan (COZAAR) 100 mg tablet Take 1 tablet by mouth once daily. - citalopram (CELEXA) 20 mg tablet Take 1 tablet by mouth once daily - potassium chloride 20 mEq TbER Take 2 tablets by mouth twice daily - fluticasone-salmeterol (WIXELA INHUB) 500-50 mcg/dose dsdv Inhale 1 Puff as instructed two times a day. - albuterol HFA (VENTOLIN HFA) 90 mcg/actuation inhaler Inhale 2 Puffs as instructed every 4 hours as needed for wheezing/shortness of breath. - ascorbic acid, vitamin C, (VITAMIN C) 500 mg tablet 1 tab(s) orally once a day for 30 day(s) - betamethasone dipropionate 0.05 % ointment Apply to affected area twice daily. 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 Hypertension [I10] 04/25/1969 Type 2 diabetes mellitus without retinopathy (H*09/07/2021 Pseudophakia [Z96.1] 09/07/2021 Dry eye syndrome of both eyes [H04.123] 09/07/2021 Meibomian gland dysfunction (MGD) of upper and *09/07/2021 Posterior vitreous detachment, bilateral [H43.8*09/07/2021 Presbyopia of both eyes [H52.4] 09/07/2021 Chronic left shoulder pain [M25.512, G89.29] 10/31/2021 Neck pain [M54.2] 10/31/2021 Arthritis of both knees [M17.0] 02/16/2022 Asthma [J45.909] 04/25/1949 Degenerative disc disease at L5-S1 level [M51.3*12/21/2001 Impingement syndrome of left shoulder region [M*02/16/2022 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 *02/16/2022 Scoliosis [M41.9] 02/16/2022 Sacroiliitis (HCC) [M46.1] 06/20/2023 Prescriptions ordered this encounter Disp Refills Start End MUCINEX DM 30 MG-600 MG TABLET,EXTEN* 14 t* 0 11/20/2024 11/27/2024 Route: PO Sig: Take 1 tablet by mouth two times a day for 7 days. Encounter Status:Closed by JESSICA MARTINEZ on 11/20/24 [facility] CNOVon 11-19-2024 CNOV Office Visit (AGPOB1 ) AKILA DE LOS SANTOS ([id number]) 1945 F Date Time Provider Department 11/19/24 1:15 PM ARVIND HAIDER AGPOB1 During your visit today, we recorded the following information about you: Respiration Weight Height 16/minute 69.4 kg 1.549 m Arvind Haider DO 11/19/2024 2:05 PM Signed Date of Evaluation: 11/19/2024 Patient Name: Akila De Los Santos : 1945 Subjective Akila De Los Santos is a 79-year-old female with a history of right knee arthritis and a meniscal tear, presenting for evaluation of recurrent right knee swelling. Akila reports recurrent swelling in the right knee, which began a couple of weeks ago. She has had two previous aspirations of the knee (Bakers cyst), the most recent being in August, and the initial one in June, which included a corticosteroid injection. Akila has not engaged in physical therapy for this issue, although she did participate in physical therapy years ago for a different condition. She has been performing home exercises, but notes that some have become too painful to continue, particularly those involving knee flexion. Review of Systems Respiratory: (+) cough Musculoskeletal: (+) right knee pain, (+) right knee swelling PAST MEDICAL HISTORY Diagnosis Date Asthma (HCC) Diabetes mellitus (HCC) DJD (degenerative joint disease) Left hand pain Osteoarthritis of multiple joints PAD (peripheral artery disease) TIA (transient ischemic attack) PAST SURGICAL HISTORY Procedure Laterality Date CATARACT EXTRACTION HX Left 11/2016 CATARACT EXTRACTION HX Right 11/2018 TOTAL ABDOM HYSTERECTOMY FAMILY HISTORY Problem Relation Age of Onset Blindness Maternal Grandmother Social History Tobacco Use Smoking status: Former Types: Cigarettes Smokeless tobacco: Never Vaping Use Vaping status: Never Used Substance Use Topics Alcohol use: Never Drug use: Never Current Outpatient Medications Medication Sig ALPRAZolam 0.5 mg dissolvable tablet BRING 2 TABLETS TO PROCEDURE LOCATION ON THE DAY OF PROCEDURE, TO BE ADMINISTERED BY STAFF traMADol (ULTRAM) 50 mg tablet Take 1 tablet by mouth at bedtime as needed for pain for up to 60 days. pregabalin (LYRICA) 75 mg capsule Take 1 capsule by mouth three times a day for 180 days. metFORMIN ER (GLUCOPHAGE XR) 500 mg 24 hr tablet Take 2 tablets by mouth daily with breakfast. valACYclovir (VALTREX) 1 gram tablet Take 1 tablet by mouth once daily rosuvastatin (CRESTOR) 10 mg tablet TAKE 1 TABLET BY MOUTH ONCE DAILY AT BEDTIME solifenacin (VESICARE) 5 mg tablet Take 1 tablet by mouth once daily montelukast (SINGULAIR) 10 mg tablet TAKE 1 TABLET BY MOUTH ONCE DAILY AT BEDTIME amLODIPine (NORVASC) 10 mg tablet Take 1 tablet by mouth once daily primidone (MYSOLINE) 50 mg tablet TAKE 1 TABLET BY MOUTH ONCE DAILY AT BEDTIME indapamide (LOZOL) 2.5 mg tablet Take 1 tablet by mouth once daily losartan (COZAAR) 100 mg tablet Take 1 tablet by mouth once daily. citalopram (CELEXA) 20 mg tablet Take 1 tablet by mouth once daily potassium chloride 20 mEq TbER Take 2 tablets by mouth twice daily fluticasone-salmeterol (WIXELA INHUB) 500-50 mcg/dose dsdv Inhale 1 Puff as instructed two times a day. albuterol HFA (VENTOLIN HFA) 90 mcg/actuation inhaler Inhale 2 Puffs as instructed every 4 hours as needed for wheezing/shortness of breath. ascorbic acid, vitamin C, (VITAMIN C) 500 mg tablet 1 tab(s) orally once a day for 30 day(s) betamethasone dipropionate 0.05 % ointment Apply to affected area twice daily. No current facility-administered medications for this visit. Objective Resp 16 Ht 154.9 cm (5' 1) Wt 69.4 kg (153 lb) BMI 28.91 kg/m? Physical Exam Knee right: Appearance normal , ROM abnormal flexion 2/2 cyst, effusion none but large Bakers cyst palpated, straight leg raise: patient Able Lower extremity neuro exam: sensation to soft touch intact over the LE bilaterally. Lower extremity vascular exam: no edema over LE. Imaging - MRI of the knee: Meniscal tear and arthritic changes with a Lindsey?s cyst. Assessment AND Plan 1. 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 Previous treatments included aspiration and corticosteroid injections. Recent MRI confirmed meniscal tear and arthritis. - Performed aspiration of the cyst, removing approximately 49 mL of fluid, and administered a corticosteroid injection with Depo-Medrol to reduce inflammation. - Discussed initiating a series of three weekly hyaluronic acid injections (e.g., Euflexxa) to provide cushioning and lubrication to the knee joint. - Ordered hyaluro (more content not included)... Normal [facility] Large Joint Arthro/Inj: R Dustin barton [place] 11-19-2024 Arvind Haider DO 11/19/2024 2:05 PM Large Joint Arthro/Inj: R Lindsey Cyst 11/19/2024 2:03 PM The procedure site was prepped in the usual sterile fashion. Site: R Lindsey Cyst Aspirate: 49 mL yellow and clear Details:Musculoskeleta l ultrasound was utilized to successfully localize placement of the injection needle at the appropriate site. Ultrasound images demonstrating local vasculature and demonstrating injection of solution were saved. Medications: 40 mg methylPREDNISolone acetate 40 mg/mL Anesthetics: 7 mL lidocaine 10 mg/mL (1 %) Outcome: Tolerated well, no immediate complications Post-injection instructions were reviewed with the patient and the patient voiced understanding of these instructions. Informed Consent Consent Obtained: Verbal [place] Protocol A moment to CARE was completed. SIGN IN Personnel directly involved with the procedure wore the appropriate PPE. Special Equipment: N/A Patient/Surrogate Stated/Verified: Patient name and Intended procedure TIME OUT Relevant labs, photos, and/or imaging studies have been reviewed. Correct side/site marked and visible. Medications required for procedure verified. [facility] CNOVon 11-12-2024 CNOV Office Visit (AGSPHW S) AKILA DE LOS SANTOS ([id number]) 1945 F Date Time Provider Department 11/12/24 2:45 PM MARCIAL BROOKS During your visit today, we recorded the following information about you: Pulse Respiration Normal [facility] CNPNon 11-12-2024 CNPN Telephone (AGSPHWS) AKILA DE LOS SANTOS ([id number]) 1945 F Date Time Provider Department 11/12/24 MARCIAL BROOKS During your visit today, we recorded the following information about you: Allergies As of Date: 11/12/2024 Noted Allergy Reaction ASPIRIN 03/17/2015 12 - Shortness of Breath LISINOPRIL 07/17/2018 7 - Swelling LATEX 03/17/2015 2 - Rash PENICILLINS 03/17/2015 4 - Hives 2 - Rash SULFAMETHOXAZOLE 03/17/2015 4 - Hives TRILEPTAL (OXCARBAZEPINE) 01/21/2023 14 - Other: See Comments Comments: Balance Problems after taking for a few days Date Reviewed: 11/12/2024 Reviewed by: Isabell Boggs LPN - Fully Assessed Prescriptions as of 11/12/2024 - metFORMIN ER (GLUCOPHAGE XR) 500 mg 24 hr tablet Take 2 tablets by mouth daily with breakfast. - valACYclovir (VALTREX) 1 gram tablet Take 1 tablet by mouth once daily - rosuvastatin (CRESTOR) 10 mg tablet TAKE 1 TABLET BY MOUTH ONCE DAILY AT BEDTIME - solifenacin (VESICARE) 5 mg tablet Take 1 tablet by mouth once daily - montelukast (SINGULAIR) 10 mg tablet TAKE 1 TABLET BY MOUTH ONCE DAILY AT BEDTIME - amLODIPine (NORVASC) 10 mg tablet Take 1 tablet by mouth once daily - primidone (MYSOLINE) 50 mg tablet TAKE 1 TABLET BY MOUTH ONCE DAILY AT BEDTIME - indapamide (LOZOL) 2.5 mg tablet Take 1 tablet by mouth once daily - losartan (COZAAR) 100 mg tablet Take 1 tablet by mouth once daily. - citalopram (CELEXA) 20 mg tablet Take 1 tablet by mouth once daily - potassium chloride 20 mEq TbER Take 2 tablets by mouth twice daily - pregabalin (LYRICA) 75 mg capsule Take 1 capsule by mouth three times a day for 180 days. - fluticasone-salmeterol (WIXELA INHUB) 500-50 mcg/dose dsdv Inhale 1 Puff as instructed two times a day. - albuterol HFA (VENTOLIN HFA) 90 mcg/actuation inhaler Inhale 2 Puffs as instructed every 4 hours as needed for wheezing/shortness of breath. - ascorbic acid, vitamin C, (VITAMIN C) 500 mg tablet 1 tab(s) orally once a day for 30 day(s) - betamethasone dipropionate 0.05 % ointment Apply to affected area twice daily. 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 Hypertension [I10] 04/25/1969 Type 2 diabetes mellitus without retinopathy (H*09/07/2021 Pseudophakia [Z96.1] 09/07/2021 Dry eye syndrome of both eyes [H04.123] 09/07/2021 Meibomian gland dysfunction (MGD) of upper and *09/07/2021 Posterior vitreous detachment, bilateral [H43.8*09/07/2021 Presbyopia of both eyes [H52.4] 09/07/2021 Chronic left shoulder pain [M25.512, G89.29] 10/31/2021 Neck pain [M54.2] 10/31/2021 Arthritis of both knees [M17.0] 02/16/2022 Asthma [J45.909] 04/25/1949 Degenerative disc disease at L5-S1 level [M51.3*12/21/2001 Impingement syndrome of left shoulder region [M*02/16/2022 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 *02/16/2022 Scoliosis [M41.9] 02/16/2022 Sacroiliitis (HCC) [M46.1] 06/20/2023 Encounter Status:Closed by MICHELLE DHILLON on 11/12/24 [facility] XR HIP AMISH 5V PEL+ AP/LAT EA HIPon 11-12-2024 XR HIP AMISH 5V PEL+ AP/LAT EA HIP * * *Final Report* * * DATE OF EXAM: Nov 12 2024 4:21PM ANX [id number] - XR HIP AMISH 5V PEL+ AP/LAT EA HIP / PROCEDURE REASON: multiple diagnoses * * * * Physician Interpretation * * * * EXAMINATION / TECHNIQUE: XR HIP AMISH 5V PEL+ AP/LAT EA HIP HISTORY: Chronic bilateral hip pain Pain in left hip Pain in right hip COMPARISON: None. FINDINGS: No acute fracture or malalignment is identified. The hip joint spaces are maintained. The sacroiliac joints and symphysis pubis are intact. Visualized lumbosacral hardware is intact. IMPRESSION: No acute bony abnormality or significant hip osteoarthritis. Can Machine Operator: ISADORA Transcribe Date/Time: Nov 16 2024 6:01A Dictated by : PRISCILLA GILES MD This examination was interpreted and the report reviewed and electronically signed by: PRISCILLA GILES MD on Nov 16 2024 6:01AM EST [id number] [facility] OCT MACULA CIRRUS OU (BOTH E YES)on 11-09-2024 [facility] Radiology Study observation (narrative) [facility] Joie 10-18-2024 DULCE MARIA Telephone (AGSPINE3) AKILA DE LOS SANTOS ([id number]) 1945 F Date Time Provider Department 10/18/24 KALIN ESPOSITO AGSPINE3 During your visit today, we recorded the following information about you: Stacy Cotter LPN 10/18/2024 10:29 AM Signed Attempted to contact patient to follow up after procedure. Left a brief message asking patient to return call if they have any questions or concerns. Stacy Cotter LPN Allergies As of Date: 10/18/2024 Noted Allergy Reaction ASPIRIN 03/17/2015 12 - Shortness of Breath LISINOPRIL 07/17/2018 7 - Swelling LATEX 03/17/2015 2 - Rash PENICILLINS 03/17/2015 4 - Hives 2 - Rash SULFAMETHOXAZOLE 03/17/2015 4 - Hives TRILEPTAL (OXCARBAZEPINE) 01/21/2023 14 - Other: See Comments Comments: Balance Problems after taking for a few days Date Reviewed: 10/15/2024 Reviewed by: Kadeem Henley LPN - Fully Assessed Reason for Visit: Patient Update [1234] Cmt: GTB Prescriptions as of 12/31/2024 - montelukast (SINGULAIR) 10 mg tablet TAKE 1 TABLET BY MOUTH ONCE DAILY AT BEDTIME - valACYclovir (VALTREX) 1 gram tablet Take 1 tablet by mouth once daily - primidone (MYSOLINE) 50 mg tablet TAKE 1 TABLET BY MOUTH ONCE DAILY AT BEDTIME - amLODIPine (NORVASC) 10 mg tablet Take 1 tablet by mouth once daily - potassium chloride 20 mEq TbER Take 2 tablets by mouth twice daily - traMADol (ULTRAM) 50 mg tablet Take 1 tablet by mouth at bedtime as needed for pain for up to 60 days. - pregabalin (LYRICA) 75 mg capsule Take 1 capsule by mouth three times a day for 180 days. - metFORMIN ER (GLUCOPHAGE XR) 500 mg 24 hr tablet Take 2 tablets by mouth daily with breakfast. - rosuvastatin (CRESTOR) 10 mg tablet TAKE 1 TABLET BY MOUTH ONCE DAILY AT BEDTIME - solifenacin (VESICARE) 5 mg tablet Take 1 tablet by mouth once daily - indapamide (LOZOL) 2.5 mg tablet Take 1 tablet by mouth once daily - losartan (COZAAR) 100 mg tablet Take 1 tablet by mouth once daily. - citalopram (CELEXA) 20 mg tablet Take 1 tablet by mouth once daily - fluticasone-salmeterol (WIXELA INHUB) 500-50 mcg/dose dsdv Inhale 1 Puff as instructed two times a day. - albuterol HFA (VENTOLIN HFA) 90 mcg/actuation inhaler Inhale 2 Puffs as instructed every 4 hours as needed for wheezing/shortness of breath. - ascorbic acid, vitamin C, (VITAMIN C) 500 mg tablet 1 tab(s) orally once a day for 30 day(s) - betamethasone dipropionate 0.05 % ointment Apply to affected area twice daily. 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 Hypertension [I10] 04/25/1969 Type 2 diabetes mellitus without retinopathy (H*09/07/2021 Pseudophakia [Z96.1] 09/07/2021 Dry eye syndrome of both eyes [H04.123] 09/07/2021 Meibomian gland dysfunction (MGD) of upper and *09/07/2021 Posterior vitreous detachment, bilateral [H43.8*09/07/2021 Presbyopia of both eyes [H52.4] 09/07/2021 Chronic left shoulder pain [M25.512, G89.29] 10/31/2021 Neck pain [M54.2] 10/31/2021 Arthritis of both knees [M17.0] 02/16/2022 Asthma [J45.909] 04/25/1949 Degenerative disc disease at L5-S1 level [M51.3*12/21/2001 Impingement syndrome of left shoulder region [M*02/16/2022 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 *02/16/2022 Scoliosis [M41.9] 02/16/2022 Sacroiliitis (HCC) [M46.1] 06/20/2023 Encounter Status:Closed by STACY COTTER on 12/31/24 Normal [facility] GLUCOSE, BLOOD (POC)on 10-15 Glucose [Mass/Vol] 130 mg/dL Abnormal 74 - 99 mg/dL [facility] Comment on above: Location:[facility], [address], [facility] The Accu-Chek Inform II glucose meter has not been approved for testing on patients receiving intensive medical intervention or therapy and results from this point of care glucose test should not be used for patient management decisions in these cases. Inaccurate results may also occur from other interfering factors, such as N-acetylcysteine (blood concentrations of greater than 5mg/dL), galactose, extremes of hematocrit (<10 or >65), or high doses of ascorbic acid (vitamin C) greater than 3mg/dL. Consider alternate testing mechanisms (e.g. core lab, blood gas instrument) in the above situations. Interpretation and review of laboratory results Abnormal [facility] US OTHER-INJECTION (POC) JERONIMO USE ONLYon 10-15-2024 [facility] CNOVon 10-12-2024 CNOV Office Visit (AGCFM) LEDYAKILA ([id number]) 1945 F Date Time Provider Department 10/12/24 10:40 AM BETTY BUENO [facility] During your visit today, we recorded the following information about you: Temperature Pulse Blood pressure Weight 96.9 degrees 73/minute 138/74 69.4 kg Height 1.549 m Btety Bueno MD 10/18/2024 4:42 PM Signed Betty Bueno M.D. [facility] [address] [place] [address] [facility] / [address] [place] [address] Visit Date: October 12, 2024 Name: Akila De Los Santos Date of : 1945 MRN/E #: [id number] Chief Complaint: Akila De Los Santos is a 79-year-old female with a history of DM, HTN, and knee pain, presenting for follow-up. Subjective Akila De Los Santos is a 79 year old female here with the following complaint(s): Diabetes Mellitus: - Recent A1c: 8.3%; previous A1c values: 7.0%, 7.1%, 7.3%, 7.7%. - Recent blood glucose: 129 mg/dL. - Denies excessive thirst or hunger. - Reports nocturia and difficulty emptying bladder; denies dysuria. - Denies dietary changes; attributes elevated A1c to recent steroid use for knee pain. - Never taken metformin; expresses concern about side effects based on 's experience. Hypertension: - Managed with losartan and amlodipine. - Reports drowsiness, suspects it may be related to antihypertensive medications. Knee Pain: - Chronic knee pain with recurrent effusion; knee has been aspirated twice. - Presence of a cyst on the posterior aspect of the knee. - Orthopedic surgeon mentioned potential knee replacement if symptoms persist. - Provided with exercises to perform at home; unable to perform some due to limited knee flexion. - Attends exercise class on Tuesday mornings. - Recent steroid use for knee pain. Edema: - Chronic ankle edema; uses compression sleeve to manage swelling. - Wears compression stockings occasionally; finds them uncomfortable in warm weather. Albuminuria: - Recent urine albumin-creatinine ratio elevated. - Managed with losartan. Hyperlipidemia: - Recent lipid panel: Total cholesterol 149 mg/dL, HDL 80 mg/dL, LDL 53 mg/dL. - Recent lipoprotein A test normal. Constitutional: (+) somnolence Genitourinary: (+) nocturia, (+) urinary hesitancy, (+) incomplete bladder emptying, (-) dysuria Musculoskeletal: (+) knee swelling, (+) knee pain, (+) decreased knee range of motion, (+) ankle swelling, (+) back pain Endocrine: (-) polydipsia, (-) polyphagia Social History Tobacco Use Smoking status: Former Types: Cigarettes Smokeless tobacco: Never Vaping Use Vaping status: Never Used Substance Use Topics Alcohol use: Never Drug use: Never ALLERGIES Allergen Reactions Aspirin Shortness of Breath Lisinopril Swelling Latex Rash Penicillins Hives, Rash Sulfamethoxazole Hives Trileptal [Oxcarbaz* Other: See Comments Balance Problems after taking for a few days Current Outpatient Medications Medication Sig valACYclovir (VALTREX) 1 gram tablet Take 1 tablet by mouth once daily rosuvastatin (CRESTOR) 10 mg tablet TAKE 1 TABLET BY MOUTH ONCE DAILY AT BEDTIME solifenacin (VESICARE) 5 mg tablet Take 1 tablet by mouth once daily montelukast (SINGULAIR) 10 mg tablet TAKE 1 TABLET BY MOUTH ONCE DAILY AT BEDTIME traMADol (ULTRAM) 50 mg tablet Take 1 tablet by mouth at bedtime as needed for pain for up to 60 days. Patient should start on September 07, 2024. amLODIPine (NORVASC) 10 mg tablet Take 1 tablet by mouth once daily primidone (MYSOLINE) 50 mg tablet TAKE 1 TABLET BY MOUTH ONCE DAILY AT BEDTIME indapamide (LOZOL) 2.5 mg tablet Take 1 tablet by mouth once daily losartan (COZAAR) 100 mg tablet Take 1 tablet by mouth once daily. citalopram (CELEXA) 20 mg tablet Take 1 tablet by mouth once daily potassium chloride 20 mEq TbER Take 2 tablets by mouth twice daily pregabalin (LYRICA) 75 mg capsule Take 1 capsule by mouth three times a day for 180 days. fluticasone-salmeterol (WIXELA INHUB) 500-50 mcg/dose dsdv Inhale 1 Puff as instructed two times a day. albuterol HFA (VENTOLIN HFA) 90 mcg/actuation inhaler Inhale 2 Puffs as instructed every 4 hours as needed for wheezing/shortness of breath. ascorbic acid, vitamin C, (VITAMIN C) 500 mg tablet 1 tab(s) orally once a day for 30 day(s) betamethasone dipropionate 0.05 % ointment Apply to affected area twice daily. metFORMIN ER (GLUCOPHAGE XR) 500 mg 24 hr tablet Take 2 tablets by mouth daily with breakfast. No current facility-administered medications for this visit. I have confirmed and edited as necessary the chief complaint, medications, past medical, family and social histories. Objective 10/12/24 1010 BP: 138/74 Pulse: 73 Temp: 36.1 ?C (96.9 ?F) Weight: 153 lb (69.4 kg) Height: 5' 1 (1.549 m) Body mass index is 28.91 kg/m? (more content not included)... Normal [facility] HEMOGLOBIN A1C (POC)on 10-12 HbA1c (Bld) [Mass fraction] 8.3 % Abnormal 4.3 - 5.6 % [facility] Comment on above: Location:[facility], [address], [facility] Point of care (POC) Hemoglobin A1c (HGBA1C) testing is intended to assess glucose control and provide a management tool for patients known to have diabetes and their healthcare providers. Target HGBA1C levels may depend on specific clinical circumstances. POC HGBA1C is not intended for use as a diagnostic or screening test; laboratory-based testing should be used for diagnostic purposes. The following information is supplemental and may not be applicable to specific diabetes management situations: The POC device big data platform architect provides a normal range of 4.2% to 6.5% for the HGBA1C POC test. However, the [place] [employer] guidelines indicate that patients with HGBA1C in the range of 5.7% to 6.4% are at increased risk for development of diabetes and that intervention by lifestyle modification may be beneficial. A HGBA1C level greater than or equal to 6.5% is considered diagnostic of diabetes, pending confirmatory testing. Use of HGBA1C testing to evaluate glucose control may not be appropriate for patients with hemoglobin variants or other conditions (e.g. anemia) that alter red blood cell lifespan. Interpretation and review of laboratory results Abnormal [facility] ALBUMIN/CREATININE RATIO, UR INEon 10-09-2024 Albumin Unsp time DL <= 20 mg/L (U) [Mass/Time] 51.3 mg/L Normal [facility] Comment on above: Order Comment: Elly de la fuente Type: URINE SPECIMEN Ordering Facility: [facility] Address: [address] [place] [address] Performed By: #### U ACR #### [facility] CLIA [id number] [address] [place] [address] [place] Albumin/Creatinine (U) [Mass ratio] 93 mg/g High <30 [facility] Comment on above: Order Comment: Elly de la fuente Type: URINE SPECIMEN Ordering Facility: [facility] Address: [address] [place] [address] Result Comment: Adul t Male and Female Nephrotic Criteria: <30 mg/g is considered normal to mildly increased 30-300 mg/g is considered moderately increased >300 mg/g is considered severely increased KDIGO. (2013). KDIGO 2012 Clinical Practice Guideline for the Evaluation and Management of Chronic Kidney Disease. Official Journal of the International Society of Nephrology, 3(1), 1-150. Performed By: #### U ACR #### [facility] CLIA [id number] [address] Creatinine (U) [Mass/Vol] 55.1 mg/dL Normal 42.2-237.9 [facility] Comment on above: Order Comment: Speci men Type: URINE SPECIMEN Ordering Facility: [facility] Address: [address] [place] [address] Performed By: #### U ACR #### [facility] CLIA [id number] [address] OF [facility] Comprehensive metabolic 2000 panelon 10-09-2024 Albumin [Mass/Vol] 4.2 g/dL Normal 3.9-4.9 [facility] Comment on above: Order Comment: Speci men Type: BLOOD SPECIMEN Ordering Facility: [facility] Address: [address] [place] [address] Performed By: #### 2 4323-8, 47831-6 #### [facility] CLIA [id number] [address] STATES OF [facility] ALP [Catalytic activity/Vol] 109 U/L Normal 34-123 [facility] Comment on above: Order Comment: Speci men Type: BLOOD SPECIMEN Ordering Facility: [facility] Address: [address] [place] [address] Performed By: #### 2 4323-8, 13038-7 #### [facility] CLIA [id number] [address] STATES [facility] ALT With P-5'-P [Catalytic activity/Vol] 35 U/L Normal 7-38 [facility] Comment on above: Order Comment: Speci men Type: BLOOD SPECIMEN Ordering Facility: [facility] Address: [address] [place] [address] Performed By: #### 2 4323-8, 50987-6 #### [facility] CLIA [id number] [address] [place] [facility] Anion gap [Moles/Vol] 9 mmol/L Normal 8-15 [facility] Comment on above: Order Comment: Speci men Type: BLOOD SPECIMEN Ordering Facility: [facility] Address: [address] [place] [address] Performed By: #### 2 4323-8, 20157-2 #### [facility] CLIA [id number] [address] OF [facility] AST With P-5'-P [Catalytic activity/Vol] 32 U/L Normal 13-35 [facility] Comment on above: Order Comment: Speci men Type: BLOOD SPECIMEN Ordering Facility: [facility] Address: [address] [place] [address] Performed By: #### 2 4323-8, 35543-1 #### [facility] CLIA [id number] [address] STATES OF [facility] Bilirubin [Mass/Vol] 0.2 mg/dL Normal 0.2-1.3 [facility] Comment on above: Order Comment: Speci men Type: BLOOD SPECIMEN Ordering Facility: [facility] Address: [address] [place] [address] Performed By: #### 2 4323-8, 52694-9 #### [facility] CLIA [id number] [address] STATES OF [place] Calcium [Mass/Vol] 9.0 mg/dL Normal 8.5-10.2 [facility] Comment on above: Order Comment: Speci men Type: BLOOD SPECIMEN Ordering Facility: [facility] Address: [address] [place] [address] Performed By: #### 2 4323-8, 99667-5 #### [facility] CLIA [id number] [address] [place] [address] [place] Chloride [Moles/Vol] 101 mmol/L Normal 98-107 [facility] Comment on above: Order Comment: Speci men Type: BLOOD SPECIMEN Ordering Facility: [facility] Address: [address] [place] [address] Performed By: #### 2 4323-8, 56778-3 #### [facility] CLIA [id number] [address] CO2 [Moles/Vol] 29 mmol/L Normal 22-30 [facility] Comment on above: Order Comment: Speci men Type: BLOOD SPECIMEN Ordering Facility: [facility] Address: [address] [place] [address] Performed By: #### 2 4323-8, 25614-8 #### [facility] CLIA [id number] [address] Creatinine [Mass/Vol] 0.82 mg/dL Normal 0.58-0.96 [facility] Comment on above: Order Comment: Speci men Type: BLOOD SPECIMEN Ordering Facility: [facility] Address: [address] [place] [address] Performed By: #### 2 4323-8, 94359-6 #### [facility] CLIA [id number] [address] Creatinine and Glomerular filtration rate.predicted panel (S/P/Bld) 73 mL/min/1.73m??? Normal >=60 [facility] Comment on above: Order Comment: Speci men Type: BLOOD SPECIMEN Ordering Facility: [facility] Address: [address] [place] [address] Result Comment: Zeinab mated Glomerular Filtration Rate (eGFR) is calculated using the 2020 CKD-EPI creatinine equation. This equation utilizes serum creatinine, sex, and age as parameters. The creatinine assay has traceable calibration to isotope dilution-mass spectrometry. Refer to KDIGO guidelines for clinical interpretation. In patients with unstable renal function, e.g. those with acute kidney injury, the eGFR may not accurately reflect actual GFR. Performed By: #### 2 4323-8, 64531-4 #### [facility] CLIA [id number] 1 [place] [address] [place] Glucose [Mass/Vol] 129 mg/dL High 74-99 [facility] Comment on above: Order Comment: Elly de la fuente Type: BLOOD SPECIMEN Ordering Facility: [facility] Address: [address] [place] [address] Result Comment: The [place] Diabetes Association (ADA) provides guidance for cutoff values for fasting glucose and random glucose. The ADA defines fasting as no caloric intake for at least 8 hours. Fasting plasma glucose results between 100 to 125 mg/dL indicate increased risk for diabetes (prediabetes). Fasting plasma glucose results greater than or equal to 126 mg/dL meet the criteria for diagnosis of diabetes. In the absence of unequivocal hyperglycemia, results should be confirmed by repeat testing. In a patient with classic symptoms of hyperglycemia or hyperglycemic crisis, random plasma glucose results greater than or equal to 200 mg/dL meet the criteria for diagnosis of diabetes. Reference: Standards of Medical Care in Diabetes 2016, [place] Diabetes Association. Diabetes Care. 2016.39(Suppl 1). Performed By: #### 2 4323-8, 41483-3 #### [facility] CLIA [id number] 1 [place] [address] [place] Potassium [Moles/Vol] 4.1 mmol/L Normal 3.7-5.1 [facility] Comment on above: Order Comment: Elly de la fuente Type: BLOOD SPECIMEN Ordering Facility: [facility] Address: [address] [place] [address] Performed By: #### 2 4323-8, 24576-7 #### [facility] CLIA [id number] 1 [place] [address] [place] Protein [Mass/Vol] 7.2 g/dL Normal 6.3-8.0 [facility] Comment on above: Order Comment: Elly de la fuente Type: BLOOD SPECIMEN Ordering Facility: [facility] Address: [address] [place] [address] Performed By: #### 2 4323-8, 51485-0 #### [facility] CLIA [id number] 1 [place] [address] [place] Sodium [Moles/Vol] 139 mmol/L Normal 136-144 [facility] Comment on above: Order Comment: Speci men Type: BLOOD SPECIMEN Ordering Facility: [facility] Address: [address] [place] [address] Performed By: #### 2 4323-8, 28369-0 #### [facility] CLIA [id number] 1 [place] [address] [place] Urea nitrogen [Mass/Vol] 7 mg/dL Normal 7-21 [facility] Comment on above: Order Comment: Speci men Type: BLOOD SPECIMEN Ordering Facility: [facility] Address: [address] [place] [address] Performed By: #### 2 4323-8, 46844-2 #### [facility] CLIA [id number] [address] STATES [place] LPa SerPl-mCncon 10-09-2024 Lipoprotein a [Mass/Vol] 18 mg/dL Normal <30 [facility] Comment on above: Order Comment: Speci men Type: BLOOD SPECIMEN Ordering Facility: [facility] Address: [address] [place] [address] Performed By: #### 1 0835-7 #### [facility] CLIA [id number] [address] [place] [address] [place] Lipid 1996 panelon 5 Cholesterol [Mass/Vol] 149 mg/dL Normal <200 [facility] Comment on above: Order Comment: Speci men Type: BLOOD SPECIMEN Ordering Facility: [facility] Address: [address] [place] [address] Result Comment: <200 mg/dL, Desirable 200-239 mg/dL, Borderline high >239 mg/dL, High Performed By: #### 2 4323-8, 39899-8 #### [facility] CLIA [id number] [address] [place] Cholesterol in HDL [Mass/Vol] 80 mg/dL Normal >39 [facility] Comment on above: Order Comment: Speci men Type: BLOOD SPECIMEN Ordering Facility: [facility] Address: [address] [place] [address] Result Comment: 40-5 9 mg/dL, Acceptable >59 mg/dL, High: Negative risk factor for coronary heart disease <40 mg/dL, Low: Positive risk factor for coronary heart disease Performed By: #### 2 4323-8, 46694-5 #### [facility] CLIA [id number] [address] [place] Cholesterol in LDL [Mass/Vol] 53 mg/dL Normal <100 [facility] Comment on above: Order Comment: Speci men Type: BLOOD SPECIMEN Ordering Facility: [facility] Address: [address] [place] [address] Result Comment: <100 mg/dL, Optimal 100-129 mg/dL, Near optimal/above optimal 130-159 mg/dL, Borderline high 160-189 mg/dL, High >189 mg/dL, Very high Secondary prevention optimal LDL Cholesterol levels are recommended to be <70 mg/dL LDL cholesterol is calculated using the Lopez-NIH equation. Performed By: #### 2 432-8, #### [facility] CLIA [id number] [address] [place] Cholesterol in LDL/Cholesterol in HDL [Mass ratio] 0.66 {ratio} Normal <2.54 [facility] Comment on above: Order Comment: Speci men Type: BLOOD SPECIMEN Ordering Facility: [facility] Address: [address] [place] [address] Result Comment: Prashant velásquez: 1. National Cholesterol Education Program ATP III Guideline At-A-Glance Quick Desk Reference: National Heart, Lung, and Blood [place]. National Institutes of Health. 2001: NIH Publication No. 01-3305. 2. An International Atherosclerosis Society position paper: global recommendations for the management of dyslipidemia: executive summary, Atherosclerosis. 2014: 232(2):410-413. Performed By: #### 2 4323-8, 58703-3 #### [facility] CLIA [id number] [address] [place] Cholesterol in VLDL [Mass/Vol] 12 mg/dL Normal <30 [facility] Comment on above: Order Comment: Speci men Type: BLOOD SPECIMEN Ordering Facility: [facility] Address: [address] [place] [address] Performed By: #### 2 4323-8, 55837-9 #### [facility] CLIA [id number] [address] OF [place] Cholesterol non HDL [Mass/Vol] 69 mg/dL Normal <130 [facility] Comment on above: Order Comment: Speci men Type: BLOOD SPECIMEN Ordering Facility: [facility] Address: [address] [place] [address] Result Comment: <130 mg/dL, Optimal 130-159 mg/dL, Near optimal/above optimal 160-189 mg/dL, Borderline high 190-219 mg/dL, High >219 mg/dL, Very high Secondary prevention optimal non HDL Cholesterol levels are recommended to be <100 mg/dL Performed By: #### 2 4323-8, 25929-1 #### [facility] CLIA [id number] [address] Cholesterol.total/ Cholesterol in HDL [Mass ratio] 1.86 {ratio} Normal <5.10 [facility] Comment on above: Order Comment: Speci men Type: BLOOD SPECIMEN Ordering Facility: [facility] Address: [address] [place] [address] Performed By: #### 2 4323-8, 21792-8 #### [facility] CLIA [id number] [address] OF [facility] FASTING TIME 12 hrs Normal [facility] Comment on above: Order Comment: Speci men Type: BLOOD SPECIMEN Ordering Facility: [facility] Address: [address] [place] [address] Performed By: #### 2 4323-8, 62106-5 #### [facility] CLIA [id number] [address] OF [place] Triglyceride [Mass/Vol] 84 mg/dL Normal <150 [facility] Comment on above: Order Comment: Speci men Type: BLOOD SPECIMEN Ordering Facility: [facility] Address: [address], [place] [address] Result Comment: <150 mg/dL, Normal 150-199 mg/dL, Borderline high 200-499 mg/dL, High >499 mg/dL, Very high Performed By: #### 2 4323-8, 81788-7 #### [facility] CLIA [id number] 1 [place] [id number] [facility] CNOVon 09-19-2024 CNOV Office Visit (AGOTAL ) AKILA DE LOS SANTOS ([id number]) 1945 F Date Time Provider Department 09/19/24 1:00 PM ARVIND HAIDER During your visit today, we recorded the following information about you: Respiration Weight Height 18/minute 66.7 kg 1.549 m Goyo Albarado LPN 09/19/2024 1:40 PM Signed REVIEW OF SYSTEMS: GENERAL: Well developed, well nourished. No acute distress PAIN: 10/02 CARDIOVASCULAR: Negative for chest pain, leg swelling and palpations. MSK: right knee SKIN: Negative for lesions, rash, itching, metal sensitivity NEURO: Negative for seizure, trauma, numbness/tingling of extremities. ENDOCRINE: DMII HEMATOLOGY: Negative for excessive bleeding, clots, bleeding disorders. Arvind Haider DO 09/19/2024 1:38 PM Signed We discussed your right knee pain and swelling: - I drained 56 cc of fluid from your Lindsey?s cyst today using ultrasound guidance. This should help relieve some of the pressure and discomfort. - It is too soon to repeat a steroid injection, as the last one was done on July 16. Steroid injections are typically spaced at least three months apart. We can consider another injection in about a month if needed. - Lindsey?s cysts often recur due to underlying joint issues, such as arthritis or meniscal tears. To address the root cause, I recommend: - Starting home exercises to strengthen your knee. A handout with specific exercises will be provided to you at the credit front office developer. Please do these exercises a couple of times per week. - Continuing your regular Tuesday exercise routine, as this is beneficial. - Using a knee brace or wrap for additional support, as you find this helpful for walking. - I prescribed a short course of oral steroids (9 days total) to help reduce inflammation and pain. Please monitor your blood sugar while taking this medication, as it may temporarily raise your levels. If you experience symptoms such as lightheadedness, excessive thirst, or frequent urination, check your blood sugar or seek medical attention. - Continue taking all your regular medications as prescribed. We discussed next steps: - If the swelling and pain persist despite these measures, we may need to consider additional treatments, such as physical therapy, further injections, or, in some cases, surgery (e.g., knee replacement) to address the underlying arthritis. - Please send me a message on Contacts+ or call the office to update me on your progress or if you have any concerns. Let us know if you need further assistance. Arvind Haider DO 09/19/2024 1:40 PM Signed Date of Evaluation: 09/19/2024 Patient Name: Akila De Los Santos : 1945 Subjective Akila is a 79-year-old female with a history of right knee effusion and Lindsey's cyst, presenting with recurrent swelling and pain in the right knee. Akila reports that her right knee began swelling again last week, with effusion noted both anteriorly and posteriorly. She describes the swelling as significant, with a knob-like protrusion on the lateral aspect of the knee. The swelling is accompanied by severe pain and has also caused edema in her ankle, which she notes is unusual for her. The only way she can ambulate is by wrapping the knee tightly. She received a steroid injection in May, which provided relief, but the swelling has recurred. She also mentions that the swelling had previously subsided after she sent a message to the clinician about it. She is scheduled for a cortisone injection in her left hip next month and inquires if this will affect her current condition. She has a history of physical therapy but has not undergone any sessions this year. She expresses concern about the cost of physical therapy sessions, which are $35 each. She is interested in home exercises to manage her condition. Review of Systems Musculoskeletal: (+) right knee swelling, (+) right knee pain, (+) ankle swelling, (+) back tightness PAST MEDICAL HISTORY Diagnosis Date Asthma (HCC) Diabetes mellitus (HCC) DJD (degenerative joint disease) Left hand pain Osteoarthritis of multiple joints PAD (peripheral artery disease) TIA (transient ischemic attack) PAST SURGICAL HISTORY Procedure Laterality Date CATARACT EXTRACTION HX Left 11/2016 CATARACT EXTRACTION HX Right 11/2018 TOTAL ABDOM HYSTERECTOMY FAMILY HISTORY Problem Relation Age of Onset Blindness Maternal Grandmother Social History Tobacco Use Smoking status: Former Types: Cigarettes Smokeless tobacco: Never Vaping Use Vaping status: Never Used Substance Use Topics Alcohol use: Never Drug use: Never Current Outpatient Medications Medication Sig montelukast (SINGULAIR) 10 mg tablet TAKE 1 TABLET BY MOUTH ONCE DAILY AT BEDTIME traMADol (ULTRAM) 50 mg tablet Take 1 tablet by mouth at bedtime as needed for pain for up to 60 days. P (more content not included)... Normal [facility] Large Joint Arthro/Inj: R Dustin ker [place] 09-19-2024 Arvind Haider DO 09/19/2024 1:40 PM Large Joint Arthro/Inj: R Lindsey Cyst 09/19/2024 1:39 PM The procedure site was prepped in the usual sterile fashion. Site: R Lindsey Cyst Aspirate: 56 mL blood-tinged and serous Details:Musculoskeleta l ultrasound was utilized to successfully localize placement of the injection needle at the appropriate site. Ultrasound images demonstrating local vasculature and demonstrating injection of solution were saved. Anesthetics: 5 mL lidocaine (PF) 10 mg/mL (1 %) Outcome: Tolerated well, no immediate complications Post-injection instructions were reviewed with the patient and the patient voiced understanding of these instructions. Informed Consent Consent Obtained: Verbal [place] Protocol A moment to CARE was completed. SIGN IN Personnel directly involved with the procedure wore the appropriate PPE. Special Equipment: N/A Patient/Surrogate Stated/Verified: Patient name and Intended procedure TIME OUT Relevant labs, photos, and/or imaging studies have been reviewed. Correct side/site marked and visible. Medications required for procedure verified. [facility] Joie 09-18-2024 NELYN Telephone (AGSPINE2) AKILA DE LOS SANTOS ([id number]) 1945 F Date Time Provider Department 09/18/24 DIANA VARGAS AGSPINE2 During your visit today, we recorded the following information about you: Diana Vargas APRN.MULTIPLE SLIDE OPERATOR 09/18/2024 8:55 AM Signed She was positive for phenobarbital, can this be from the mysoline? Bertha is checking with the lab ARSALAN Shea Karen Dawn, APRN.[facility] 09/18/2024 9:53 AM Signed I heard back from Bertha, mysoline will cause a + phenobarbital result Diana Vargas APRN.MULTIPLE SLIDE OPERATOR Allergies As of Date: 09/18/2024 Noted Allergy Reaction ASPIRIN 03/17/2015 12 - Shortness of Breath LISINOPRIL 07/17/2018 7 - Swelling LATEX 03/17/2015 2 - Rash PENICILLINS 03/17/2015 4 - Hives 2 - Rash SULFAMETHOXAZOLE 03/17/2015 4 - Hives TRILEPTAL (OXCARBAZEPINE) 01/21/2023 14 - Other: See Comments Comments: Balance Problems after taking for a few days Date Reviewed: 09/04/2024 Reviewed by: Kadeem Henley LPN - Fully Assessed 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 Patient should start on September 07, 2024. - amLODIPine (NORVASC) 10 mg tablet Take 1 tablet by mouth once daily - primidone (MYSOLINE) 50 mg tablet TAKE 1 TABLET BY MOUTH ONCE DAILY AT BEDTIME - indapamide (LOZOL) 2.5 mg tablet Take 1 tablet by mouth once daily - losartan (COZAAR) 100 mg tablet Take 1 tablet by mouth once daily. - citalopram (CELEXA) 20 mg tablet Take 1 tablet by mouth once daily - rosuvastatin (CRESTOR) 10 mg tablet TAKE 1 TABLET BY MOUTH ONCE DAILY AT BEDTIME - potassium chloride 20 mEq TbER Take 2 tablets by mouth twice daily - solifenacin (VESICARE) 5 mg tablet Take 1 tablet by mouth once daily - montelukast (SINGULAIR) 10 mg tablet TAKE 1 TABLET BY MOUTH ONCE DAILY AT BEDTIME - pregabalin (LYRICA) 75 mg capsule Take 1 capsule by mouth three times a day for 180 days. - fluticasone-salmeterol (WIXELA INHUB) 500-50 mcg/dose dsdv Inhale 1 Puff as instructed two times a day. - albuterol HFA (VENTOLIN HFA) 90 mcg/actuation inhaler Inhale 2 Puffs as instructed every 4 hours as needed for wheezing/shortness of breath. - valACYclovir (VALTREX) 1 gram tablet Take 1 tablet by mouth once daily - ascorbic acid, vitamin C, (VITAMIN C) 500 mg tablet 1 tab(s) orally once a day for 30 day(s) - betamethasone dipropionate 0.05 % ointment Apply to affected area twice daily. 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 Hypertension [I10] 04/25/1969 Type 2 diabetes mellitus without retinopathy (H*09/07/2021 Pseudophakia [Z96.1] 09/07/2021 Dry eye syndrome of both eyes [H04.123] 09/07/2021 Meibomian gland dysfunction (MGD) of upper and *09/07/2021 Posterior vitreous detachment, bilateral [H43.8*09/07/2021 Presbyopia of both eyes [H52.4] 09/07/2021 Chronic left shoulder pain [M25.512, G89.29] 10/31/2021 Neck pain [M54.2] 10/31/2021 Arthritis of both knees [M17.0] 02/16/2022 Asthma [J45.909] 04/25/1949 Degenerative disc disease at L5-S1 level [M51.3*12/21/2001 Impingement syndrome of left shoulder region [M*02/16/2022 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 *02/16/2022 Scoliosis [M41.9] 02/16/2022 Sacroiliitis (HCC) [M46.1] 06/20/2023 Encounter Status:Closed by DIANA VARGAS on 09/18/24 [facility] CNCOon 09-04-2024 CNCO Letter Text [facility] CNOVon 09-04-2024 CNOV Office Visit (AGSPINE3) AKILA DE LOS SANTOS ([id number]) 1945 F Date Time Provider Department 09/04/24 2:45 PM [facility] During your visit today, we recorded the following information about you: Pulse Respiration [facility] CNPNon 09-04-2024 CNPN Telephone (AGSPINE3) AKILA DE LOS SANTOS ([id number]) 1945 F Date Time Provider Department 09/04/24 KALIN [facility] During your visit today, we recorded the following information about you: Antonio Zarco 09/04/2024 3:23 PM Signed Procedure(s) being scheduled: Greater Trochanteric Bursal Injection under ultrasound guidance LEFT-SIDED 1.Are you diabetic Yes. Please list the current medications being prescribed no meds. 2. Are you on any blood thinners? No If yes, does it require a hold? No If yes, was approval letter sent? No 3. Are you taking any aspirin? No 4. Are you currently taking any antibiotics? No If yes, is it prophylactic or for treatment of an infection? N/a 5. Do you have any allergies to latex? Yes 6. Do you have any allergies to seafood or shellfish? No 7. Do you have any allergies to x-ray dye? No 8. Does this procedure require a bobtail driver? No If yes, has patient been notified that a bobtail driver is needed and must be present at check in? N/a 9. Were the pre-procedure instructions explained and provided to the patient? Yes 10. Do you have a pacemaker? No 11. Do you have an internal stimulator of any kind? No If yes, please bring the remote with you to your procedure visit. Antonio Zarco Allergies As of Date: 09/04/2024 Noted Allergy Reaction ASPIRIN 03/17/2015 12 - Shortness of Breath LISINOPRIL 07/17/2018 7 - Swelling LATEX 03/17/2015 2 - Rash PENICILLINS 03/17/2015 4 - Hives 2 - Rash SULFAMETHOXAZOLE 03/17/2015 4 - Hives TRILEPTAL (OXCARBAZEPINE) 01/21/2023 14 - Other: See Comments Comments: Balance Problems after taking for a few days Date Reviewed: 09/04/2024 Reviewed by: Kadeem Henley LPN - Fully Assessed Reason for Visit: Injections [199] Cmt: questions Prescriptions as of 09/04/2024 - traMADol (ULTRAM) 50 mg tablet Take 1 tablet by mouth at bedtime as needed for pain for up to 60 days. Patient should start on September 07, 2024. - amLODIPine (NORVASC) 10 mg tablet Take 1 tablet by mouth once daily - primidone (MYSOLINE) 50 mg tablet TAKE 1 TABLET BY MOUTH ONCE DAILY AT BEDTIME - indapamide (LOZOL) 2.5 mg tablet Take 1 tablet by mouth once daily - losartan (COZAAR) 100 mg tablet Take 1 tablet by mouth once daily. - citalopram (CELEXA) 20 mg tablet Take 1 tablet by mouth once daily - rosuvastatin (CRESTOR) 10 mg tablet TAKE 1 TABLET BY MOUTH ONCE DAILY AT BEDTIME - potassium chloride 20 mEq TbER Take 2 tablets by mouth twice daily - solifenacin (VESICARE) 5 mg tablet Take 1 tablet by mouth once daily - montelukast (SINGULAIR) 10 mg tablet TAKE 1 TABLET BY MOUTH ONCE DAILY AT BEDTIME - pregabalin (LYRICA) 75 mg capsule Take 1 capsule by mouth three times a day for 180 days. - fluticasone-salmeterol (WIXELA INHUB) 500-50 mcg/dose dsdv Inhale 1 Puff as instructed two times a day. - albuterol (PROVENTIL) 2.5 mg /3 mL (0.083 %) nebulizer solution Use 3 mL via nebulizer every 4 hours as needed for wheezing/shortness of breath. - albuterol HFA (VENTOLIN HFA) 90 mcg/actuation inhaler Inhale 2 Puffs as instructed every 4 hours as needed for wheezing/shortness of breath. - valACYclovir (VALTREX) 1 gram tablet Take 1 tablet by mouth once daily - ascorbic acid, vitamin C, (VITAMIN C) 500 mg tablet 1 tab(s) orally once a day for 30 day(s) - betamethasone dipropionate 0.05 % ointment Apply to affected area twice daily. 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/11/2020 Hypertension [I10] 04/25/1969 Type 2 diabetes mellitus without retinopathy (H*09/07/2021 Pseudophakia [Z96.1] 09/07/2021 Dry eye syndrome of both eyes [H04.123] 09/07/2021 Meibomian gland dysfunction (MGD) of upper and *09/07/2021 Posterior vitreous detachment, bilateral [H43.8*09/07/2021 Presbyopia of both eyes [H52.4] 09/07/2021 Chronic left shoulder pain [M25.512, G89.29] 10/31/2021 Neck pain [M54.2] 10/31/2021 Arthritis of both knees [M17.0] 02/16/2022 Asthma [J45.909] 04/25/1949 Degenerative disc disease at L5-S1 level [M51.3*12/21/2001 Impingement syndrome of left shoulder region [M*02/16/2022 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 *02/16/2022 Scoliosis [M41.9] 02/16/2022 Sacroiliitis (HCC) [M46.1] 06/20/2023 Encounter Status:Closed by ANTONIO ZARCO on 09/04/24 [facility] AKILA DE LOS SANTOS ([id number]) 1945 F Date Time Provider Department 07/24/24 BETTY BUENO [facility] During your visit today, we recorded the following information about you: Lakia Sutherland LPN 07/24/2024 3:08 PM Signed Order received for blood pressure cuff. Faxed order, OV notes and demographics to [facility] [place] [phone]. Lakia Sutherland LPN Allergies As of Date: 07/24/2024 Noted Allergy Reaction ASPIRIN 03/17/2015 12 - Shortness of Breath LISINOPRIL 07/17/2018 7 - Swelling LATEX 03/17/2015 2 - Rash PENICILLINS 03/17/2015 4 - Hives 2 - Rash SULFAMETHOXAZOLE 03/17/2015 4 - Hives TRILEPTAL (OXCARBAZEPINE) 01/21/2023 14 - Other: See Comments Comments: Balance Problems after taking for a few days Date Reviewed: 07/16/2024 Reviewed by: Eloise Juan LPN - Fully Assessed Reason for Visit: Orders [681] Cmt: Blood pressure cuff Prescriptions as of 07/24/2024 - citalopram (CELEXA) 20 mg tablet Take 1 tablet by mouth once daily - rosuvastatin (CRESTOR) 10 mg tablet TAKE 1 TABLET BY MOUTH ONCE DAILY AT BEDTIME - potassium chloride 20 mEq TbER Take 2 tablets by mouth twice daily - solifenacin (VESICARE) 5 mg tablet Take 1 tablet by mouth once daily - traMADol (ULTRAM) 50 mg tablet Take 1 tablet by mouth at bedtime as needed for pain for up to 90 days. Patient should start on July 05, 2024. - montelukast (SINGULAIR) 10 mg tablet TAKE 1 TABLET BY MOUTH ONCE DAILY AT BEDTIME - primidone (MYSOLINE) 50 mg tablet TAKE 1 TABLET BY MOUTH ONCE DAILY AT BEDTIME - indapamide (LOZOL) 2.5 mg tablet Take 1 tablet by mouth once daily - pregabalin (LYRICA) 75 mg capsule Take 1 capsule by mouth three times a day for 180 days. - losartan (COZAAR) 100 mg tablet Take 1 tablet by mouth once daily. - fluticasone-salmeterol (WIXELA INHUB) 500-50 mcg/dose dsdv Inhale 1 Puff as instructed two times a day. - albuterol (PROVENTIL) 2.5 mg /3 mL (0.083 %) nebulizer solution Use 3 mL via nebulizer every 4 hours as needed for wheezing/shortness of breath. - albuterol HFA (VENTOLIN HFA) 90 mcg/actuation inhaler Inhale 2 Puffs as instructed every 4 hours as needed for wheezing/shortness of breath. - valACYclovir (VALTREX) 1 gram tablet Take 1 tablet by mouth once daily - amLODIPine (NORVASC) 10 mg tablet Take 1 tablet by mouth once daily. - ascorbic acid, vitamin C, (VITAMIN C) 500 mg tablet 1 tab(s) orally once a day for 30 day(s) - betamethasone dipropionate 0.05 % ointment Apply to affected area twice daily. 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/11/2020 Hypertension [I10] 04/25/1969 Type 2 diabetes mellitus without retinopathy (H*09/07/2021 Pseudophakia [Z96.1] 09/07/2021 Dry eye syndrome of both eyes [H04.123] 09/07/2021 Meibomian gland dysfunction (MGD) of upper and *09/07/2021 Posterior vitreous detachment, bilateral [H43.8*09/07/2021 Presbyopia of both eyes [H52.4] 09/07/2021 Chronic left shoulder pain [M25.512, G89.29] 10/31/2021 Neck pain [M54.2] 10/31/2021 Arthritis of both knees [M17.0] 02/16/2022 Asthma [J45.909] 04/25/1949 Degenerative disc disease at L5-S1 level [M51.3*12/21/2001 Impingement syndrome of left shoulder region [M*02/16/2022 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 *02/16/2022 Scoliosis [M41.9] 02/16/2022 Sacroiliitis (HCC) [M46.1] 06/20/2023 Encounter Status:Closed by LAKIA SUTHERLAND on 07/24/24 [facility] CNOVon 07-16-2024 CNOV Office Visit (AGPOB1 ) AKILA DE LOS SANTOS ([id number]) 1945 F Date Time Provider Department 07/16/24 3:00 PM ARVIND HAIDER During your visit today, we recorded the following information about you: Respiration Weight Height 20/minute 66.7 kg 1.549 m Eloise Juan LPN 07/16/2024 3:55 PM Signed This nurse prepared an injection of 4ml Lidocaine and 1ml Kenalog with a 22g needle for injection of right knee and another injection of 5ml Lidocaine with a 27g needle for injection of right knee and handed both injections to Dr. Haider.Eloise Juan LPN July 16, 2024 3:33 PM Arvind Haider DO 07/16/2024 3:55 PM Signed HPI: Akila De Los Santos presented to the Orthopedics department for follow-up regarding right knee pain. Patient presents for evaluation of right knee pain. She states that this has been going on for about 1 year. She has been diagnosed with osteoarthritis in the past. She states that her symptoms have been gradually getting worse as of recently. She did see [facility] somewhat recently and had x-rays and an MRI completed. She does present today with the MRI report. This does report tenosynovitis of the joint with a large Lindsey's cyst as well as meniscal tearing. Patient states that the pressure in the back of her knee is significant and she has difficulty bearing weight because of the pain. PAST MEDICAL HISTORY Diagnosis Date Asthma Diabetes mellitus (HCC) DJD (degenerative joint disease) Left hand pain Osteoarthritis of multiple joints PAD (peripheral artery disease) (HCC) TIA (transient ischemic attack) PAST SURGICAL HISTORY Procedure Laterality Date CATARACT EXTRACTION HX Left 11/2016 CATARACT EXTRACTION HX Right 11/2018 TOTAL ABDOM HYSTERECTOMY Social History Tobacco Use Smoking status: Former Types: Cigarettes Smokeless tobacco: Never Vaping Use Vaping status: Never Used Substance Use Topics Alcohol use: Never Drug use: Never Current Outpatient Medications Medication Sig citalopram (CELEXA) 20 mg tablet Take 1 tablet by mouth once daily rosuvastatin (CRESTOR) 10 mg tablet TAKE 1 TABLET BY MOUTH ONCE DAILY AT BEDTIME potassium chloride 20 mEq TbER Take 2 tablets by mouth twice daily solifenacin (VESICARE) 5 mg tablet Take 1 tablet by mouth once daily traMADol (ULTRAM) 50 mg tablet Take 1 tablet by mouth at bedtime as needed for pain for up to 90 days. Patient should start on July 05, 2024. montelukast (SINGULAIR) 10 mg tablet TAKE 1 TABLET BY MOUTH ONCE DAILY AT BEDTIME primidone (MYSOLINE) 50 mg tablet TAKE 1 TABLET BY MOUTH ONCE DAILY AT BEDTIME indapamide (LOZOL) 2.5 mg tablet Take 1 tablet by mouth once daily pregabalin (LYRICA) 75 mg capsule Take 1 capsule by mouth three times a day for 180 days. losartan (COZAAR) 100 mg tablet Take 1 tablet by mouth once daily. fluticasone-salmeterol (WIXELA INHUB) 500-50 mcg/dose dsdv Inhale 1 Puff as instructed two times a day. albuterol (PROVENTIL) 2.5 mg /3 mL (0.083 %) nebulizer solution Use 3 mL via nebulizer every 4 hours as needed for wheezing/shortness of breath. albuterol HFA (VENTOLIN HFA) 90 mcg/actuation inhaler Inhale 2 Puffs as instructed every 4 hours as needed for wheezing/shortness of breath. valACYclovir (VALTREX) 1 gram tablet Take 1 tablet by mouth once daily amLODIPine (NORVASC) 10 mg tablet Take 1 tablet by mouth once daily. ascorbic acid, vitamin C, (VITAMIN C) 500 mg tablet 1 tab(s) orally once a day for 30 day(s) betamethasone dipropionate 0.05 % ointment Apply to affected area twice daily. No current facility-administered medications for this visit. ALLERGIES Allergen Reactions Aspirin Shortness of Breath Lisinopril Swelling Latex Rash Penicillins Hives, Rash Sulfamethoxazole Hives Trileptal [Oxcarbaz* Other: See Comments Balance Problems after taking for a few days Resp 20 Ht 5' 1 (1.55m) Wt 147 lb (66.7kg) BMI 27.79 kg/(m2). ROS: Denies any significant change to relevant ROS Review of Systems EXAM: General: Alert and oriented ?3 in no apparent distress. Ortho Exam Knee right: Appearance abnormal large posterior swelling/Bakers cyst , ROM normal, effusion 1+, straight leg raise: patient Able, TTP popliteal fossa ,Bethany Negative medial and lateral Bethany's test, varus stress test Negative degrees, valgus stress test Negative, Mikal's test Negative, Anterior Drawer negative, Posterior Drawer negative, Lower extremity neuro exam: sensation to soft touch intact over the LE bilaterally. Lower extremity vascular exam: no edema over LE. IMAGING: Recent Results (from the past 36 hours) XR KNEE POST OP 3V AP/LAT/MERCHANT RIGHT Narrative 3 views of right knee with comparison views of opposite knee. No fractures/dislocations /tumors noted. Tricompartmental osteoarthritis with lateral tilt of the patella within the patellofemora (more content not included)... Normal [facility] Large Joint Arthro/Inj: Deonte barton [place] 07-16-2024 Fork[place]ArvindDO 07/16/2024 3:55 PM Large Joint Arthro/Inj: R Lindsey Cyst 07/16/2024 3:53 PM The procedure site was prepped in the usual sterile fashion. Site: R Lindsey Cyst Aspirate: 67 mL yellow and serous Details:Musculoskeleta l ultrasound was utilized to successfully localize placement of the injection needle at the appropriate site. Ultrasound images demonstrating local vasculature and demonstrating injection of solution were saved. Medications: 40 mg triamcinolone acetonide 40 mg/mL Anesthetics: 4 mL lidocaine (PF) 10 mg/mL (1 %); 5 mL lidocaine (PF) 10 mg/mL (1 %) Outcome: Tolerated well, no immediate complications Post-injection instructions were reviewed with the patient and the patient voiced understanding of these instructions. Informed Consent Consent Obtained: Verbal [place] Protocol A moment to CARE was completed. SIGN IN Personnel directly involved with the procedure wore the appropriate PPE. Special Equipment: N/A Patient/Surrogate Stated/Verified: Patient name and Intended procedure TIME OUT Relevant labs, photos, and/or imaging studies have been reviewed. Correct side/site marked and visible. Medications required for procedure verified. [facility] XR Knee AP and Lateral and M [place] 07-16-2024 3 views of right kne e with comparison views of opposite knee. No fractures/dislocations /tumors noted. Tricompartmental osteoarthritis with lateral tilt of the patella within the patellofemoral compartment. Assessment: Moderate OA right knee. [facility] Radiology Study observation (narrative) [facility]ie [facility]13[facility]20[facility]) AKILA DE LOS SANTOS ([id number]) 1945 F Date Time Provider Department 07/13/24 BETTY BUENO [facility] During your visit today, we recorded the following information about you: Kirt Hewitt LPN 07/13/2024 11:06 AM Signed Order received for BP Cuff. Awaiting completed OV notes. Awaiting OV notes from 07/11/2024. Tony Hays LPN 07/18/2024 11:43 AM Signed Unfortunately BP cuff is not a covered item under Medicare benefits. Patient notified with understanding. Patient will look around and see if able to find one at a reasonable cost. Betty Bueno MD 07/19/2024 5:17 PM Signed Noted. Thank you. [facility] Allergies As of Date: 07/13/2024 Noted Allergy Reaction ASPIRIN 03/17/2015 12 - Shortness of Breath LISINOPRIL 07/17/2018 7 - Swelling LATEX 03/17/2015 2 - Rash PENICILLINS 03/17/2015 4 - Hives 2 - Rash SULFAMETHOXAZOLE 03/17/2015 4 - Hives TRILEPTAL (OXCARBAZEPINE) 01/21/2023 14 - Other: See Comments Comments: Balance Problems after taking for a few days Date Reviewed: 07/11/2024 Reviewed by: Lakia Sutherland LPN - Fully Assessed Reason for Visit: Orders [681] Cmt: BP cuff Prescriptions as of 07/19/2024 - citalopram (CELEXA) 20 mg tablet Take 1 tablet by mouth once daily - rosuvastatin (CRESTOR) 10 mg tablet TAKE 1 TABLET BY MOUTH ONCE DAILY AT BEDTIME - potassium chloride 20 mEq TbER Take 2 tablets by mouth twice daily - solifenacin (VESICARE) 5 mg tablet Take 1 tablet by mouth once daily - traMADol (ULTRAM) 50 mg tablet Take 1 tablet by mouth at bedtime as needed for pain for up to 90 days. Patient should start on July 05, 2024. - montelukast (SINGULAIR) 10 mg tablet TAKE 1 TABLET BY MOUTH ONCE DAILY AT BEDTIME - primidone (MYSOLINE) 50 mg tablet TAKE 1 TABLET BY MOUTH ONCE DAILY AT BEDTIME - indapamide (LOZOL) 2.5 mg tablet Take 1 tablet by mouth once daily - pregabalin (LYRICA) 75 mg capsule Take 1 capsule by mouth three times a day for 180 days. - losartan (COZAAR) 100 mg tablet Take 1 tablet by mouth once daily. - fluticasone-salmeterol (WIXELA INHUB) 500-50 mcg/dose dsdv Inhale 1 Puff as instructed two times a day. - albuterol (PROVENTIL) 2.5 mg /3 mL (0.083 %) nebulizer solution Use 3 mL via nebulizer every 4 hours as needed for wheezing/shortness of breath. - albuterol HFA (VENTOLIN HFA) 90 mcg/actuation inhaler Inhale 2 Puffs as instructed every 4 hours as needed for wheezing/shortness of breath. - valACYclovir (VALTREX) 1 gram tablet Take 1 tablet by mouth once daily - amLODIPine (NORVASC) 10 mg tablet Take 1 tablet by mouth once daily. - ascorbic acid, vitamin C, (VITAMIN C) 500 mg tablet 1 tab(s) orally once a day for 30 day(s) - betamethasone dipropionate 0.05 % ointment Apply to affected area twice daily. Meds Comments as of 09/15/2022: 09/15/22 The medications are managed by this patient by: PATIENT Bel Vela LPN Problem List As Of Date 07/13/2024 Noted Resolved Type 2 diabetes mellitus with peripheral neurop*11/11/2020 Hypertension [I10] 04/25/1969 Type 2 diabetes mellitus without retinopathy (H*09/07/2021 Pseudophakia [Z96.1] 09/07/2021 Dry eye syndrome of both eyes [H04.123] 09/07/2021 Meibomian gland dysfunction (MGD) of upper and *09/07/2021 Posterior vitreous detachment, bilateral [H43.8*09/07/2021 Presbyopia of both eyes [H52.4] 09/07/2021 Chronic left shoulder pain [M25.512, G89.29] 10/31/2021 Neck pain [M54.2] 10/31/2021 Arthritis of both knees [M17.0] 02/16/2022 Asthma [J45.909] 04/25/1949 Degenerative disc disease at L5-S1 level [M51.3*12/21/2001 Impingement syndrome of left shoulder region [M*02/16/2022 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 *02/16/2022 Scoliosis [M41.9] 02/16/2022 Sacroiliitis (HCC) [M46.1] 06/20/2023 Encounter Status:Closed by KIRT HEWITT on 07/13/24 Normal [facility] CNOVon 07-11-2024 CN Office Visit (AGCFM) AKILA DE LOS SANTOS ([id number]) 1945 F Date Time Provider Department 07/11/24 1:20 PM BETTY BUENO [facility] During your visit today, we recorded the following information about you: Temperature Pulse Blood pressure Weight 97.5 degrees 83/minute 123/73 66.7 kg Betty Bueno MD 07/18/2024 6:35 AM Signed Betty Bueno M.D. [facility] [address] [place] [address] [employer] [facility] [address] [place] [address] Visit Date: July 11, 2024 Name: Akila De Los Santos Date of : 1945 MRN/E #: [id number] Chief Complaint: No chief complaint on file. Subjective Akila De Los Santos is a 79 year old female here with the following complaint(s): The history is provided by the patient. Diabetes She presents for her follow-up diabetic visit. She has type 2 diabetes mellitus. There are no hypoglycemic associated symptoms. Pertinent negatives for hypoglycemia include no headaches. Associated symptoms include blurred vision (a little. Got glasses; thinks it will help.) and polyuria. Pertinent negatives for diabetes include no chest pain, no fatigue, no foot paresthesias, no polydipsia, no polyphagia and no weight loss. There are no hypoglycemic complications. Hypertension Associated symptoms include blurred vision (a little. Got glasses; thinks it will help.). Pertinent negatives include no anxiety, chest pain, headaches, malaise/fatigue, palpitations, peripheral edema ((R knee)) or shortness of breath. There are no associated agents to hypertension. R knee pain Wants to transfer [facility] from [facility]. Going to food pantry that is near to her. Hemoglobin A1C (%) Date Value 01/09/2024 7.5 12/16/2022 7.6 Hemoglobin A1C (POCT) (%) Date Value 07/11/2024 7.7 04/11/2024 7.0 10/24/2023 7.8 05/30/2023 7.3 07/26/2022 7.7 FH: Dad- [place], (in 60s) Brother- CABGx 4 (70) Mo- a-fib. Review of Systems Constitutional: Negative for fatigue, malaise/fatigue and weight loss. Eyes: Positive for blurred vision (a little. Got glasses; thinks it will help.). Respiratory: Negative for shortness of breath. Cardiovascular: Negative for chest pain and palpitations. Endocrine: Positive for polyuria. Negative for polydipsia and polyphagia. Neurological: Negative for headaches. Social History Tobacco Use Smoking status: Former Types: Cigarettes Smokeless tobacco: Never Vaping Use Vaping status: Never Used Substance Use Topics Alcohol use: Never Drug use: Never ALLERGIES Allergen Reactions Aspirin Shortness of Breath Lisinopril Swelling Latex Rash Penicillins Hives, Rash Sulfamethoxazole Hives Trileptal [Oxcarbaz* Other: See Comments Balance Problems after taking for a few days Current Outpatient Medications Medication Sig citalopram (CELEXA) 20 mg tablet Take 1 tablet by mouth once daily rosuvastatin (CRESTOR) 10 mg tablet TAKE 1 TABLET BY MOUTH ONCE DAILY AT BEDTIME potassium chloride 20 mEq TbER Take 2 tablets by mouth twice daily solifenacin (VESICARE) 5 mg tablet Take 1 tablet by mouth once daily traMADol (ULTRAM) 50 mg tablet Take 1 tablet by mouth at bedtime as needed for pain for up to 90 days. Patient should start on July 05, 2024. montelukast (SINGULAIR) 10 mg tablet TAKE 1 TABLET BY MOUTH ONCE DAILY AT BEDTIME primidone (MYSOLINE) 50 mg tablet TAKE 1 TABLET BY MOUTH ONCE DAILY AT BEDTIME indapamide (LOZOL) 2.5 mg tablet Take 1 tablet by mouth once daily pregabalin (LYRICA) 75 mg capsule Take 1 capsule by mouth three times a day for 180 days. losartan (COZAAR) 100 mg tablet Take 1 tablet by mouth once daily. fluticasone-salmeterol (WIXELA INHUB) 500-50 mcg/dose dsdv Inhale 1 Puff as instructed two times a day. albuterol (PROVENTIL) 2.5 mg /3 mL (0.083 %) nebulizer solution Use 3 mL via nebulizer every 4 hours as needed for wheezing/shortness of breath. albuterol HFA (VENTOLIN HFA) 90 mcg/actuation inhaler Inhale 2 Puffs as instructed every 4 hours as needed for wheezing/shortness of breath. valACYclovir (VALTREX) 1 gram tablet Take 1 tablet by mouth once daily amLODIPine (NORVASC) 10 mg tablet Take 1 tablet by mouth once daily. ascorbic acid, vitamin C, (VITAMIN C) 500 mg tablet 1 tab(s) orally once a day for 30 day(s) betamethasone dipropionate 0.05 % ointment Apply to affected area twice daily. No current facility-administered medications for this visit. I have confirmed and edited as necessary the chief complaint, medications, past medical, family and social histories. Objective 07/11/24 1315 BP: 123/73 Pulse: 83 Temp: 36.4 ?C (97.5 ?F) Weight: 147 lb (66.7 kg) Body mass index is 27.78 kg/m?. Physical Exam Vitals and nursing note reviewed. Constitutional: Appearance: She is not ill-appearing. HENT: Head: [place]pha (more content not included)... Normal [facility] HEMOGLOBIN A1C (POC)on 07-11 HbA1c (Bld) [Mass fraction] 7.7 % Abnormal 4.3 - 5.6 % [facility] Comment on above: Location:[facility], [address], [address] Point of care (POC) Hemoglobin A1c (HGBA1C) testing is intended to assess glucose control and provide a management tool for patients known to have diabetes and their healthcare providers. Target HGBA1C levels may depend on specific clinical circumstances. POC HGBA1C is not intended for use as a diagnostic or screening test; laboratory-based testing should be used for diagnostic purposes. The following information is supplemental and may not be applicable to specific diabetes management situations: The POC device big data platform architect provides a normal range of 4.2% to 6.5% for the HGBA1C POC test. However, the [place] [employer] guidelines indicate that patients with HGBA1C in the range of 5.7% to 6.4% are at increased risk for development of diabetes and that intervention by lifestyle modification may be beneficial. A HGBA1C level greater than or equal to 6.5% is considered diagnostic of diabetes, pending confirmatory testing. Use of HGBA1C testing to evaluate glucose control may not be appropriate for patients with hemoglobin variants or other conditions (e.g. anemia) that alter red blood cell lifespan. Interpretation and review of laboratory results Abnormal [facility] CNOVon 06-25-2024 CNOV Office Visit (AGSPINE3) AKILA DE LOS SANTOS ([id number]) 1945 F Date Time Provider Department 06/25/24 2:30 PM ASHLEY FLEMING AGSPINE3 During your visit today, we recorded the following information about you: Pulse Respiration 58/minute 15/minute Ashley Fleming APRN.MULTIPLE SLIDE OPERATOR 06/25/2024 2:44 PM Addendum [facility] Today's Date: 06/25/2024 Name: Akila De Los Santos : 1945 Purpose: Follow-up Patient Evaluation - This is an established patient, returning today for continued evaluation and management of the chief complaint noted below Chief complaint: lumbar pain Pertinent Past Medical History: asthma, DM2, PAD, TIA Pertinent Past Surgeries: No spine Plan at last visit: Refill Tramadol Depending on response to the above plan, consider: Repeat caudal or SIJ prn Interval History: Overall pain and functional disability since last visit: Better New Complaints since last visit: No 06/11/24 right TFESI S1 Patient reports 80 % relief from procedure with pain score of 0/10 to date Patient reports improved quality of life and increase in ability to perform ADL's. Patient denies any adverse side effects such as nausea, vomiting, hives, fever, injection site redness/induration, headache, or new radicular symptoms. She is pleased with the procedure She sees ortho for her knee injections RECALL: Beginning yesterday, the patient began to have a significant flare of her right lower extremity radicular pain, which had previously been very well-controlled on Lyrica and had not bothered her in a very long time. She did not have any new injury. The pain is burning of the anterior thigh and calf and kept her from sleeping last night, it is very sensitive to the touch Current Pain Medications: Neuropathics: Lyrica 50 mg TID NSAIDS: Muscle Relaxants: Topicals: Other Prescription or OTC Pain Medications: Tylenol Opioids (when applicable): Tramadol 50 mg daily as needed MEDICATION NAME tramadol STRENGTH 50 LAST FILL DATE 05/28/2024 DATE LAST DOSE TAKEN 06/23/24 - 6:00pm QUANTITY FILLED 30 QUANTITY REMAINING 11 Anti-depressants or Mood-Stabilizers: Celexa Anti-Coagulants: None Therapies Attended (Current or Most Recent): No Current Therapies 01/21/2023 04/04/2023 07/18/2023 10/10/2023 01/02/2024 03/05/2024 04/27/2024 AG SPINE COMBINATION Questionnaire URINE DRUG SCREEN URINE DRUG SCREEN URINE DRUG SCREEN URINE DRUG SCREEN URINE DRUG SCREEN URINE DRUG SCREEN URINE DRUG SCREEN Completed Date 01/21/2023 04/04/2023 07/18/2023 10/10/2023 01/02/2024 03/05/2024 04/27/2024 Questionnaire NA/OIC NA/OIC NA/OIC NA/OIC Completed Date 01/21/2023 07/18/2023 01/02/2024 03/05/2024 Comments AMALIA today Questionnaire Opiod Risk Tool Opiod Risk Tool Completed Date 04/04/2023 04/27/2024 Notable Events During Course of Treatment: N/A Treatment History: PAIN PROCEDURES: DATE PROCEDURE IMPROVEMENT 06/11/24 right TFESI S1 80% 11/16/23 Caudal 50-80% 08/09/2022 Bilat SI Joint 85% (01/21/2023 ) 02/01/2022 Caudal CHAZ 70% x 7 months 11/26/2021 Bilat SI Joint 85% x nearly 6 months 04/07/2021 Bilat SI Joint 90% x 6 months Data Reviewed Today: Allergies: ALLERGIES Allergen Reactions Aspirin Shortness of Breath Lisinopril Swelling Latex Rash Penicillins Hives, Rash Sulfamethoxazole Hives Trileptal [Oxcarbaz* Other: See Comments Balance Problems after taking for a few days Social History Tobacco Use Smoking status: Former Types: Cigarettes Smokeless tobacco: Never Vaping Use Vaping status: Never Used Substance Use Topics Alcohol use: Never Drug use: Never 06/19/2024 06/25/2024 INTAKE PAIN ASSESSMENT Are you having pain associated with your visit today? No Yes, Provider notified Pain Scales Verbal (Numeric Rating or Visual Analog Scale) Pain Level 3 Pain Location Hip-Left Description Stabbing;Aching Frequency Continuous Intervention/Comfort measure Other: See comment Compliance: PDMP website checked and validated on 06/25/2024 by Ashley Fleming APRN.MULTIPLE SLIDE OPERATOR All prescriptions have been APPROPRIATELY filled. No suspicious activity was identified. 01/21/2023 04/04/2023 07/18/2023 10/10/2023 01/02/2024 03/05/2024 04/27/2024 AG SPINE COMBINATION Questionnaire URINE DRUG SCREEN URINE DRUG SCREEN URINE DRUG SCREEN URINE DRUG SCREEN URINE DRUG SCREEN URINE DRUG SCREEN URINE DRUG SCREEN Completed Date 01/21/2023 04/04/2023 07/18/2023 10/10/2023 01/02/2024 03/05/2024 04/27/2024 Questionnaire NA/OIC NA/OIC NA/OIC NA/OIC Completed Date 01/21/2023 07/18/2023 01/02/2024 03/05/2024 Comments AMALIA today Questionnaire Opiod Risk Tool Opiod Risk Tool Completed Date 04/04/2023 04/27/2024 ( (more content not included)... Normal [facility] GLUCOSE, BLOOD (POC)on 06-11 Glucose [Mass/Vol] 139 mg/dL Abnormal 74 - 99 mg/dL [facility] Comment on above: Location:[facility] Sp[facility], [facility] [place] [address], [facility] The Accu-Chek Inform II glucose meter has not been approved for testing on patients receiving intensive medical intervention or therapy and results from this point of care glucose test should not be used for patient management decisions in these cases. Inaccurate results may also occur from other interfering factors, such as N-acetylcysteine (blood concentrations of greater than 5mg/dL), galactose, extremes of hematocrit (<10 or >65), or high doses of ascorbic acid (vitamin C) greater than 3mg/dL. Consider alternate testing mechanisms (e.g. core lab, blood gas instrument) in the above situations. Interpretation and review of laboratory results Abnormal [facility] CNOVon 06-04-2024 CNOV Office Visit (AGSPINE3) AKILA DE LOS SANTOS ([id number]) 1945 F Date Time Provider Department 06/04/24 1:45 PM ASHLEY FLEMING AGSPINE3 During your visit today, we recorded the following information about you: Pulse Respiration 64/minute 16/minute Shay Michael MA 06/04/2024 1:44 PM Signed Review of Systems Constitutional: Negative for activity change, chills, fever and unexpected weight change. Gastrointestinal: Negative for bowel retention or incontinence Genitourinary: Negative for difficulty urinating. Negative for bladder retention or incontinence Musculoskeletal: Positive for arthralgias, back pain, gait problem and neck stiffness. Negative for joint swelling, myalgias and neck pain. Neurological: Negative for weakness, numbness and headaches. Psychiatric/Behavioral : Negative for dysphoric mood, sleep disturbance and suicidal ideas. The patient is not nervous/anxious. Sierra Tanner LPN 06/04/2024 1:44 PM Signed 06/04/2024 1:36 PM (Medication name) Pregabalin,Tablets/Cap sules(quantity) 21 was neutralized by the patient using a medication disposal system (carbon pouch). The patient then deposited the medication in the trash. Witness: Sierra Tanner LPN Secondary Witness: WILSON Christensen Louise, APRN.MULTIPLE SLIDE OPERATOR 06/04/2024 1:39 PM Signed Ice and heat as tolerated Activity as tolerated Patient verbalizes understanding of home going instructions and is in agreement Ashley Fleming APRN.MULTIPLE SLIDE OPERATOR 06/04/2024 1:44 PM Signed [facility] [place] [facility] Today's Date: 06/04/2024 Name: Akila De Los Santos : 1945 Purpose: Follow-up Patient Evaluation - This is an established patient, returning today for continued evaluation and management of the chief complaint noted below Chief complaint: lumbar pain Pertinent Past Medical History: asthma, DM2, PAD, TIA Pertinent Past Surgeries: No spine Plan at last visit: Refill Tramadol Depending on response to the above plan, consider: Repeat caudal or SIJ prn Interval History: Overall pain and functional disability since last visit: Worse New Complaints since last visit: No She is scheduled for ILESI She is tolerating the increase in Lyrica without side effects - she feels it is beneficial She states the right knee gives out sometime - she sees Dr Duenas for her knee Denies LOC of bowel and bladder, no saddle anesthesia, no BLE weakness, no recent falls. She has refills on the Lyrica 75 mg TID RECALL: Beginning yesterday, the patient began to have a significant flare of her right lower extremity radicular pain, which had previously been very well-controlled on Lyrica and had not bothered her in a very long time. She did not have any new injury. The pain is burning of the anterior thigh and calf and kept her from sleeping last night, it is very sensitive to the touch Current Pain Medications: Neuropathics: Lyrica 50 mg TID NSAIDS: Muscle Relaxants: Topicals: Other Prescription or OTC Pain Medications: Tylenol Opioids (when applicable): Tramadol 50 mg daily as needed MEDICATION NAME tramadol STRENGTH 50 LAST FILL DATE 05/28/2024 DATE LAST DOSE TAKEN 06/03/2024 -8:00pm QUANTITY FILLED 30 QUANTITY REMAINING 25 Anti-depressants or Mood-Stabilizers: Celexa Anti-Coagulants: None Therapies Attended (Current or Most Recent): No Current Therapies 01/21/2023 04/04/2023 07/18/2023 10/10/2023 01/02/2024 03/05/2024 04/27/2024 AG SPINE COMBINATION Questionnaire URINE DRUG SCREEN URINE DRUG SCREEN URINE DRUG SCREEN URINE DRUG SCREEN URINE DRUG SCREEN URINE DRUG SCREEN URINE DRUG SCREEN Completed Date 01/21/2023 04/04/2023 07/18/2023 10/10/2023 01/02/2024 03/05/2024 04/27/2024 Questionnaire NA/OIC NA/OIC NA/OIC NA/OIC Completed Date 01/21/2023 07/18/2023 01/02/2024 03/05/2024 Comments AMALIA today Questionnaire Opiod Risk Tool Opiod Risk Tool Completed Date 04/04/2023 04/27/2024 Notable Events During Course of Treatment: N/A Treatment History: PAIN PROCEDURES: DATE PROCEDURE IMPROVEMENT 11/16/23 Caudal 50-80% 08/09/2022 Bilat SI Joint 85% (01/21/2023 ) 02/01/2022 Caudal CHAZ 70% x 7 months 11/26/2021 Bilat SI Joint 85% x nearly 6 months 04/07/2021 Bilat SI Joint 90% x 6 months Data Reviewed Today: Allergies: ALLERGIES Allergen Reactions Aspirin Shortness of Breath Lisinopril Swelling Latex Rash Penicillins Hives, Rash Sulfamethoxazole Hives Trileptal [Oxcarbaz* Other: See Comments Balance Problems after taking for a few days Social History Tobacco Use Smoking status: Former Types: Cigarettes Smokeless tobacco: Never Vaping Use Vaping status: Never Used Substance U (more content not included)... Normal [facility] AK[facility] DE LOS [facility]ANTOS ([id number]) 1945 F Date Time Provider Department 05/09/24 KALIN ESPOSITO AGSPHWG During your visit today, we recorded the following information about you: Temitope Estrada 05/09/2024 8:57 AM Signed Procedure(s) being scheduled: Epidural Steroid Injection - Transforaminal Approach (TFESI) under fluoroscopic guidance RIGHT-SIDED at S1 1.Are you diabetic Yes. Please list the current medications being prescribed NA. 2. Are you on any blood thinners? No If yes, does it require a hold? No If yes, was approval letter sent? No 3. Are you taking any aspirin? No 4. Are you currently taking any antibiotics? No If yes, is it prophylactic or for treatment of an infection? NA 5. Do you have any allergies to latex? Yes 6. Do you have any allergies to seafood or shellfish? No 7. Do you have any allergies to x-ray dye? No 8. Does this procedure require a bobtail driver? Yes If yes, has patient been notified that a bobtail driver is needed and must be present at check in? NA 9. Were the pre-procedure instructions explained and provided to the patient? Yes 10. Do you have a pacemaker? No 11. Do you have an internal stimulator of any kind? No If yes, please bring the remote with you to your procedure visit. Temitope Estrada Allergies As of Date: 05/09/2024 Noted Allergy Reaction ASPIRIN 03/17/2015 12 - Shortness of Breath LISINOPRIL 07/17/2018 7 - Swelling LATEX 03/17/2015 2 - Rash PENICILLINS 03/17/2015 4 - Hives 2 - Rash SULFAMETHOXAZOLE 03/17/2015 4 - Hives TRILEPTAL (OXCARBAZEPINE) 01/21/2023 14 - Other: See Comments Comments: Balance Problems after taking for a few days Date Reviewed: 05/04/2024 Reviewed by: Charan Dukes DO - Fully Assessed Reason for Visit: injection questions [Other] Prescriptions as of 05/09/2024 - indapamide (LOZOL) 2.5 mg tablet Take 1 tablet by mouth once daily - pregabalin (LYRICA) 75 mg capsule Take 1 capsule by mouth three times a day for 180 days. - traMADol (ULTRAM) 50 mg tablet Take 1 tablet by mouth at bedtime as needed for pain for up to 60 days. - losartan (COZAAR) 100 mg tablet Take 1 tablet by mouth once daily. - fluticasone-salmeterol (WIXELA INHUB) 500-50 mcg/dose dsdv Inhale 1 Puff as instructed two times a day. - montelukast (SINGULAIR) 10 mg tablet TAKE 1 TABLET BY MOUTH ONCE DAILY AT BEDTIME - albuterol (PROVENTIL) 2.5 mg /3 mL (0.083 %) nebulizer solution Use 3 mL via nebulizer every 4 hours as needed for wheezing/shortness of breath. - albuterol HFA (VENTOLIN HFA) 90 mcg/actuation inhaler Inhale 2 Puffs as instructed every 4 hours as needed for wheezing/shortness of breath. - potassium chloride 20 mEq TbER Take 2 tablets by mouth twice daily - primidone (MYSOLINE) 50 mg tablet TAKE 1 TABLET BY MOUTH ONCE DAILY AT BEDTIME - citalopram (CELEXA) 20 mg tablet Take 1 tablet by mouth once daily - rosuvastatin (CRESTOR) 10 mg tablet take 1 tablet by mouth once daily at bedtime - solifenacin (VESICARE) 5 mg tablet Take 1 tablet by mouth once daily - valACYclovir (VALTREX) 1 gram tablet Take 1 tablet by mouth once daily - amLODIPine (NORVASC) 10 mg tablet Take 1 tablet by mouth once daily. - ascorbic acid, vitamin C, (VITAMIN C) 500 mg tablet 1 tab(s) orally once a day for 30 day(s) - betamethasone dipropionate 0.05 % ointment Apply to affected area twice daily. 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*11/11/2020 Hypertension [I10] 04/25/1969 Type 2 diabetes mellitus without retinopathy (H*09/07/2021 Pseudophakia [Z96.1] 09/07/2021 Dry eye syndrome of both eyes [H04.123] 09/07/2021 Meibomian gland dysfunction (MGD) of upper and *09/07/2021 Posterior vitreous detachment, bilateral [H43.8*09/07/2021 Presbyopia of both eyes [H52.4] 09/07/2021 Chronic left shoulder pain [M25.512, G89.29] 10/31/2021 Neck pain [M54.2] 10/31/2021 Arthritis of both knees [M17.0] 02/16/2022 Asthma [J45.909] 04/25/1949 Degenerative disc disease at L5-S1 level [M51.3*12/21/2001 Impingement syndrome of left shoulder region [M*02/16/2022 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 *02/16/2022 Scoliosis [M41.9] 02/16/2022 Sacroiliitis (HCC) [M46.1] 06/20/2023 Encounter Status:Closed by TEMITOPE ESTRADA on 05/09/24 Normal [facility] CNOVon 05-04-2024 [facility] Office Visit (AGGERIHWW) AKILA DE LOS SANTOS ([id number]) 1945 F Date Time Provider Department 05/04/24 1:20 PM CHARAN DUKES AGGERIHWW During your visit today, we recorded the following information about you: Pulse Blood pressure Weight Height 70/minute 128/61 66.7 kg 1.549 m Charan Dukes DO 05/04/2024 2:14 PM Signed Charan Dukes DO [facility] [address] [place] [address]. [address] [place] [address] COMPREHENSIVE GERIATRICS ASSESSMENT Patient presents with: New Patient Evaluation: Memory History of Present Illness Ms. Akila De Los Santos is a 79 year old year old lady referred for Comprehensive Geriatrics Assessment, as referred by PCP for evaluation of memory impairment. She is here with herself. Akila De Los Santos has PMHX of HTN, DM, Asthma, chronic pain, hot flashes on Celexa. No recent hospitalization. 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: singing Mood: stated good, denies depression, denies feel lonely Sleep: sleeps on average 6-7 hr, stated sleep is fragmented due to nocturia, stated mostly feel refresh once woke up, unsure if snoring, no prior sleep study Appetite: stated good Exercise: currently limited due to whether Family hx: mother had memory issues later in age, no known mood disorders Education: college degree 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 Yes Is a power of chemical compounder in place for financial needs? Patient unsure Is a power of chemical compounder in place for health care decisions? Yes Is palliative or hospice care appropriate for the patient? No II) Mentation: Tobyhanna Cognitive Exam (MOCA): not on file Cognitive Test evaluation: Cognitive Testing Evaluation Introduction: Akila De Los Santos 1945 Female This 79 year old Female was administered a battery of neurocognitive testing on 05/04/2024. Tests Administered: Trails A, Trails B, Digit Symbol Substitution, Stroop, Immediate Recognition, Delayed Recognition The combined test administration time was 11 minutes Test Results: Cognitive testing was provided via a battery of cognitive assessments. The pattern of test scores indicate that results are valid. A Clinical Report with further description of scores and results is also available. Overall: Patient tested in the 67th percentile (standard score of 107). Trails A: Patient tested in the 61st percentile (scaled standard score of 104). Trails B: Patient tested in the 81st percentile (scaled standard score of 113). Digit Symbol Substitution: Patient tested in the 49th percentile (scaled standard score of 100). Stroop: Patient tested in the 10th percentile (scaled standard score of 81). Immediate Recognition: Patient tested in the 85th percentile (scaled standard score of 116). Delayed Recognition: Patient tested in the 91st percentile (scaled standard score of 120). Interpretation of Test Scores: Examination of individual component tests shows: Attention - Trails A: unlikely impairment Mental Flexibility - Trails B: unlikely impairment Executive Function - Digit Symbol Substitution: unlikely impairment Executive Function - Stroop: possible impairment Memory - Immediate Recognition: unlikely impairment Memory - Delayed Recognition: unlikely impairment The patient?s overall cognitive test performance was in the 67th percentile when compared to individuals of a similar age and gender, suggesting unlikely presence of cognitive impairment. FAST (Functional Assessment Staging Tool) 2. Complains of forgetting location of objects; subjective word finding difficulties only CDR Dementia Scale 1) Subjective Memory Loss: YES 2) Measurable Memory Loss: NO 3) IADLs: NO 4) BADLs: NO Driving Safely: Yes > 50% 6) Medications: No Mood Evaluation and Screening GDS: 05/04/2024 Geriatric Depression Scale Are you basically satisfied with your life? 0 Have you dropped many of your activities and interests? 0 Do you feel that your life is empty? 0 Do you often get bored? 0 Are you in good spirits most of the time? 0 Are you afraid that something bad is going to happen to (more content not included)... [facility] 04-27-2024 [facility] Office Visit (AGSPINE3) AKILA DE LOS SANTOS ([id number]) 1945 F Date Time Provider Department 04/27/24 10:15 AM KALIN ESPOSITO [id number] During your visit today, we recorded the following information about you: Pulse Normal [facility] 04-16-2024 CNOV Office Visit (AGHWW1 ) AKILA DE LOS SANTOS ([id number]) 1945 F Date Time Provider Department 04/16/24 1:00 PM CHUCK ESCOBAR AGHWW1 During your visit today, we recorded the following information about you: Respiration Weight Height 20/minute 67.1 kg 1.549 m Chuck Escobar PA-C 04/16/2024 3:14 PM Signed ORTHOPAEDIC OFFICE NOTE CHIEF COMPLAINT: New, Pain, and Swelling of the Left Hand HISTORY OF PRESENT ILLNESS Akila De Los Santos is a 79 year old female right hand dominant who presents for evaluation of left hand pain and swelling. Patient states her pain has improved from when she initially had her x-rays done. She localizes her pain to left thumb CMC joint and left index finger MCP joint. She admits to applying Aspercreme and Biofreeze which have helped some. She admits to wearing compression gloves, which also have helped some. She is here today to discuss other treatment options. Location: left thumb Severity: 6 on a scale of 0-10 Duration of symptoms: few months Date of injury: None Symptoms have Improved some Previous treatment: Aspercreme, Biofreeze, copper gloves, activity modification Numbness/tingling: No Nocturnal symptoms: Yes Radiating: Yes Injections: No Therapy: No Context worse with Activity/Motion and Gripping Smoking status: Tobacco Use: Types: Cigarettes Reviewed nursing note and current pain scale. PAIN EVALUATION 04/09/2024 1345 04/16/2024 1308 Pain Level: 3 6 Pain Location: Hand-Left Hand-Left Description: Shooting Sharp;Stabbing Duration Amount of Time: 2 2 Duration Units: Hours Months Frequency: Intermittent Intermittent Intervention/Comfort measure: Medication;Massage -- Comments: Pain is not present all the time. It has calmed down a lot since this first started. -- PAST MEDICAL HISTORY Past medical, surgical, family, and social histories have been reviewed and updated with the patient today and are located elsewhere in the medical record. Diabetes:Yes ALLERGIES ALLERGIES Allergen Reactions Aspirin Shortness of Breath Lisinopril Swelling Latex Rash Penicillins Hives, Rash Sulfamethoxazole Hives Trileptal [Oxcarbaz* Other: See Comments Balance Problems after taking for a few days PHYSICAL EXAMINATION Resp 20 Ht 154.9 cm (5' 1) Wt 67.1 kg (148 lb) BMI 27.96 kg/m? Body mass index is 27.96 kg/m?. General Appearance: Well appearing, alert, in no acute distress, well-hydrated, well nourished. Psyche: she is alert and oriented and cooperative to our examination. Neuro: she alert and oriented times: 3. Normal affect times: 3. Gait and station: normal. Pulmonary: she has non labored breathing. There is no evidence of cyanosis. There is no clubbing of fingernails. she has no pursed lips. Head: Normocephalic and atraumatic Neck: Supple with no JVD Lymph: There is no palpable epitrochlear Musculoskeletal- Left Hand/Wrist/Upper Extremity Exam: Skin: There is mild swelling of left thumb CMC joint. No ecchymosis. There are no skin lacerations or abrasions. Inspection: There is no ulnar drift of the fingers. There is no intrinsic muscular atrophy. There is a + shoulder sign over the thumb CMC joint. There is no dorsal subluxation of the ulnar head. Cardiovascular: <3 sec capillary refill, +2 radial pulse palpated. Tenderness to palpation: Over left thumb CMC joint. Mild TTP noted to left index finger MCP joint. ROM: Able to make fist. No active or passive triggering of index finger or thumb noted. Sensation: Normal sensation Atrophy: None Special tests: - Thumb CMC grind: Positive - Snuffbox tenderness: Negative REVIEW OF STUDIES DATE OF EXAM: Mar 29 2024 2:39PM AKX [id number] - XR HAND 3V PA/LAT/OBL LT / PROCEDURE REASON: Left hand pain * * * * Physician Interpretation * * * * HISTORY: 79-YEAR-OLD FEMALE WITH Left hand pain . LT hand pain about a month ago that is better now, per pt. Pt states no specific injury TECHNIQUE: XR WRIST 3V PA/LAT/OBL LT, XR HAND 3V PA/LAT/OBL LT Laterality: LEFT Number of different views (projections): 3 COMPARISON: None RESULT: Left wrist and left hand: Narrowing at triscaphe joint. The trapezoid scaphoid articulation. Marked narrowing of the first CMC joint with osteophytes and lateral subluxation of the first metacarpal at the joint. The remaining carpal bones, intercarpal joint spaces and carpal alignment are normal. No fracture. No erosions. Degenerative changes of the IP joint of the thumb and mild asymmetric narrowing at DIP joint of the second third digit. The second digit is held in a slightly flexed position throughout the examination the MCP joint. No fracture. No erosions. IMPRESSION IMPRESSION: DEGENERATIVE CHANGES OF FIRST CMC JOINT AND. Can Machine Operator: ISADORA Transcribe Date/Time: Mar 31 2024 4:01P Dictated by : MD Paula FLORES (more content not included)... Normal [facility] CNOVon 04-11-2024 CN Office Visit (AGCFM) AKILA DE LOS SANTOS ([id number]) 1945 F Date Time Provider Department 04/11/24 1:20 PM BETTY BUENO [facility] During your visit today, we recorded the following information about you: Temperature Pulse Blood pressure Weight 96.8 degrees 63/minute 144/60 67.1 kg Height 1.549 m Betty Bueno MD 04/15/2024 5:44 PM Signed Betty Bueno M.D. [facility] [address] [place] [address] [facility] / [address] [place], [place] [address] Visit Date: April 11, 2024 Name: Akila De Los Santos Date of : 1945 MRN/E #: [id number] Chief Complaint: No chief complaint on file. Subjective Akila De Los Santos is a 79 year old female here with the following complaint(s): The history is provided by the patient. Hypertension This is a chronic problem. The problem is uncontrolled. Associated symptoms include blurred vision and malaise/fatigue (minimal; improved.). Pertinent negatives include no anxiety, chest pain, headaches, palpitations, peripheral edema or shortness of breath. There are no associated agents to hypertension. 140s-150s/60s at home. Doing well with diet. BGTs- 1-teens- 121. A1c- 7 today Hand doctor on Tuesday. Pain comes and goes. X-ray reviewed. OA. Mild persistent asthma: Doing well w/ new inhaler. No difference from Breo. SOB on occasion. 4-5x in last 2 months. Tremor Fine. Not dropping things. Dialing on phone. Writing an issue. Prevagen. Thinking about it. Forgetting whether did something or not. Or people's names. Hemoglobin A1C (%) Date Value 01/09/2024 7.5 12/16/2022 7.6 03/23/2022 8.4 Hemoglobin A1C (POCT) (%) Date Value 04/11/2024 7.0 10/24/2023 7.8 05/30/2023 7.3 07/26/2022 7.7 08/28/2021 7.1 Review of Systems Constitutional: Positive for malaise/fatigue (minimal; improved.). Eyes: Positive for blurred vision. Respiratory: Negative for shortness of breath. Cardiovascular: Negative for chest pain and palpitations. Neurological: Negative for headaches. Social History Tobacco Use Smoking status: Former Types: Cigarettes Smokeless tobacco: Never Vaping Use Vaping status: Never Used Substance Use Topics Alcohol use: Never Drug use: Never ALLERGIES Allergen Reactions Aspirin Shortness of Breath Lisinopril Swelling Latex Rash Penicillins Hives, Rash Sulfamethoxazole Hives Trileptal [Oxcarbaz* Other: See Comments Balance Problems after taking for a few days Current Outpatient Medications Medication Sig fluticasone-salmeterol (WIXELA INHUB) 500-50 mcg/dose dsdv Inhale 1 Puff as instructed two times a day. montelukast (SINGULAIR) 10 mg tablet TAKE 1 TABLET BY MOUTH ONCE DAILY AT BEDTIME albuterol (PROVENTIL) 2.5 mg /3 mL (0.083 %) nebulizer solution Use 3 mL via nebulizer every 4 hours as needed for wheezing/shortness of breath. albuterol HFA (VENTOLIN HFA) 90 mcg/actuation inhaler Inhale 2 Puffs as instructed every 4 hours as needed for wheezing/shortness of breath. blood sugar diagnostic (ACCU-CHEK KAYCEE PLUS TEST STRP) test strip Use as instructed to check blood sugar once daily as needed. Lancets (ACCU-CHEK SOFTCLIX LANCETS) USE DIRECTED 1 ONCE DAILY NEEDED potassium chloride 20 mEq TbER Take 2 tablets by mouth twice daily traMADol (ULTRAM) 50 mg tablet Take 1 tablet by mouth at bedtime as needed for pain for up to 90 days. Patient should start on March 10, 2024. primidone (MYSOLINE) 50 mg tablet TAKE 1 TABLET BY MOUTH ONCE DAILY AT BEDTIME pregabalin (LYRICA) 50 mg capsule Take one pill three times per day citalopram (CELEXA) 20 mg tablet Take 1 tablet by mouth once daily rosuvastatin (CRESTOR) 10 mg tablet take 1 tablet by mouth once daily at bedtime solifenacin (VESICARE) 5 mg tablet Take 1 tablet by mouth once daily valACYclovir (VALTREX) 1 gram tablet Take 1 tablet by mouth once daily indapamide (LOZOL) 2.5 mg tablet Take 1 tablet by mouth once daily. amLODIPine (NORVASC) 10 mg tablet Take 1 tablet by mouth once daily. ascorbic acid, vitamin C, (VITAMIN C) 500 mg tablet 1 tab(s) orally once a day for 30 day(s) betamethasone dipropionate 0.05 % ointment Apply to affected area twice daily. losartan (COZAAR) 100 mg tablet Take 1 tablet by mouth once daily. No current facility-administered medications for this visit. I have confirmed and edited as necessary the chief complaint, medications, past medical, family and social histories. Objective 04/11/24 1324 04/11/24 1412 BP: 155/69 144/60 Pulse: 63 Temp: 36 ?C (96.8 ?F) Weight: 148 lb (67.1 kg) Height: 5' 1 (1.549 m) Body mass index is 27.96 kg/m?. Physical Exam Vitals and nursing note reviewed. Constitutional: General: She is not in acute distress. HENT: Head: Normocephalic and atraumatic. Right Ear: External ear normal. L (more content not included)... Normal [facility] HEMOGLOBIN A1C (POC)on 04-11 HbA1c (Bld) [Mass fraction] 7.0 % Abnormal 4.3 - 5.6 % [facility] Comment on above: Location:[facility] [place], [address], [address] Point of care (POC) Hemoglobin A1c (HGBA1C) testing is intended to assess glucose control and provide a management tool for patients known to have diabetes and their healthcare providers. Target HGBA1C levels may depend on specific clinical circumstances. POC HGBA1C is not intended for use as a diagnostic or screening test; laboratory-based testing should be used for diagnostic purposes. The following information is supplemental and may not be applicable to specific diabetes management situations: The POC device big data platform architect provides a normal range of 4.2% to 6.5% for the HGBA1C POC test. However, the [place] Diabetes Association guidelines indicate that patients with HGBA1C in the range of 5.7% to 6.4% are at increased risk for development of diabetes and that intervention by lifestyle modification may be beneficial. A HGBA1C level greater than or equal to 6.5% is considered diagnostic of diabetes, pending confirmatory testing. Use of HGBA1C testing to evaluate glucose control may not be appropriate for patients with hemoglobin variants or other conditions (e.g. anemia) that alter red blood cell lifespan. Interpretation and review of laboratory results Abnormal [facility] XR HAND 3V PA/LAT/OBL LTon 1 05-30-2023 XR HAND 3V PA/LAT/OBL LT * * *Final Report* * * DATE OF EXAM: Mar 29 2024 2:39PM [id number] - XR HAND 3V PA/LAT/OBL LT / PROCEDURE REASON: Left hand pain * * * * Physician Interpretation * * * * HISTORY: 79-YEAR-OLD FEMALE WITH Left hand pain . LT hand pain about a month ago that is better now, per pt. Pt states no specific injury TECHNIQUE: XR WRIST 3V PA/LAT/OBL LT, XR HAND 3V PA/LAT/OBL LT Laterality: LEFT Number of different views (projections): 3 COMPARISON: None RESULT: Left wrist and left hand: Narrowing at triscaphe joint. The trapezoid scaphoid articulation. Marked narrowing of the first CMC joint with osteophytes and lateral subluxation of the first metacarpal at the joint. The remaining carpal bones, intercarpal joint spaces and carpal alignment are normal. No fracture. No erosions. Degenerative changes of the IP joint of the thumb and mild asymmetric narrowing at DIP joint of the second third digit. The second digit is held in a slightly flexed position throughout the examination the MCP joint. No fracture. No erosions. IMPRESSION: DEGENERATIVE CHANGES OF FIRST CMC JOINT AND. Can Machine Operator: ISADORA Transcribe Date/Time: Mar 31 2024 4:01P Dictated by : YASMEEN HAGEN MD This examination was interpreted and the report reviewed and electronically signed by: YASMEEN HAGEN MD on Mar 31 2024 4:04PM EST [id number] Normal [facility] XR WRIST 3V PA/LAT/OBL LTon 03-29-2024 XR WRIST 3V PA/LAT/OBL LT * * *Final Report* * * DATE OF EXAM: Mar 29 2024 2:39PM [id number] - XR WRIST 3V PA/LAT/OBL LT / PROCEDURE REASON: Left hand pain * * * * Physician Interpretation * * * * HISTORY: 79-YEAR-OLD FEMALE WITH Left hand pain . LT hand pain about a month ago that is better now, per pt. Pt states no specific injury TECHNIQUE: XR WRIST 3V PA/LAT/OBL LT, XR HAND 3V PA/LAT/OBL LT Laterality: LEFT Number of different views (projections): 3 COMPARISON: None RESULT: Left wrist and left hand: Narrowing at triscaphe joint. The trapezoid scaphoid articulation. Marked narrowing of the first CMC joint with osteophytes and lateral subluxation of the first metacarpal at the joint. The remaining carpal bones, intercarpal joint spaces and carpal alignment are normal. No fracture. No erosions. Degenerative changes of the IP joint of the thumb and mild asymmetric narrowing at DIP joint of the second third digit. The second digit is held in a slightly flexed position throughout the examination the MCP joint. No fracture. No erosions. IMPRESSION: DEGENERATIVE CHANGES OF FIRST CMC JOINT AND. Can Machine Operator: PSCB Transcribe Date/Time: Mar 31 2024 4:01P Dictated by : YASMEEN HAGEN MD This examination was interpreted and the report reviewed and electronically signed by: YASMEEN HAGEN MD on Mar 31 2024 4:04PM EST [id number] [facility] 03-13-2024 NELYN Telephone ([facility]) AKILA DE LOS SANTOS ([id number]) 1945 F Date Time Provider Department 03/13/24 BETTY BUENO [facility] During your visit today, we recorded the following information about you: Jessica Martinez LPN 03/13/2024 8:23 AM Signed [facility] called for medication clarification on the Albuterol. Pharmacist states the Albuterol sent in needs to be mixed with saline if this is not what provider wants please send in new script for one of the following: Albuterol 0.63% per 3ml or Albuterol 0.083% per 3ml. Please advise. YOSELYN Smith Nkosi, MD 03/13/2024 9:46 AM Signed Resent[facility] Allergies As of Date: 03/13/2024 Noted Allergy Reaction ASPIRIN 03/17/2015 12 - Shortness of Breath LISINOPRIL 07/17/2018 7 - Swelling LATEX 03/17/2015 2 - Rash PENICILLINS 03/17/2015 4 - Hives 2 - Rash SULFAMETHOXAZOLE 03/17/2015 4 - Hives TRILEPTAL (OXCARBAZEPINE) 01/21/2023 14 - Other: See Comments Comments: Balance Problems after taking for a few days Date Reviewed: 03/05/2024 Reviewed by: Ashley Fleming APRN.MULTIPLE SLIDE OPERATOR - Fully Assessed Reason for Visit: Medication Problem [65] Primary Visit Diagnosis:Mild persistent asthma without complication [J45.30] Order(s):albuterol (PROVENTIL) 2.5 mg /3 mL (0.083 %) nebulizer solutionUse 3 mL via nebulizer every 4 hours as needed for wheezing/shortness of breath.Disp: 88 mLRfl: 1 Prescriptions as of 03/13/2024 - albuterol (PROVENTIL) 2.5 mg /3 mL (0.083 %) nebulizer solution Use 3 mL via nebulizer every 4 hours as needed for wheezing/shortness of breath. - albuterol HFA (VENTOLIN HFA) 90 mcg/actuation inhaler Inhale 2 Puffs as instructed every 4 hours as needed for wheezing/shortness of breath. - blood sugar diagnostic (ACCU-CHEK KAYCEE PLUS TEST STRP) test strip Use as instructed to check blood sugar once daily as needed. - Lancets (ACCU-CHEK SOFTCLIX LANCETS) USE DIRECTED 1 ONCE DAILY NEEDED - potassium chloride 20 mEq TbER Take 2 tablets by mouth twice daily - traMADol (ULTRAM) 50 mg tablet Take 1 tablet by mouth at bedtime as needed for pain for up to 90 days. Patient should start on March 10, 2024. - primidone (MYSOLINE) 50 mg tablet TAKE 1 TABLET BY MOUTH ONCE DAILY AT BEDTIME - pregabalin (LYRICA) 50 mg capsule Take one pill three times per day - citalopram (CELEXA) 20 mg tablet Take 1 tablet by mouth once daily - rosuvastatin (CRESTOR) 10 mg tablet take 1 tablet by mouth once daily at bedtime - solifenacin (VESICARE) 5 mg tablet Take 1 tablet by mouth once daily - montelukast (SINGULAIR) 10 mg tablet take 1 tablet by mouth once daily at bedtime - losartan (COZAAR) 50 mg tablet Take 1 tablet by mouth once daily - BREO ELLIPTA 200-25 mcg/dose inhaler Inhale 1 Inhalation as instructed once daily. - valACYclovir (VALTREX) 1 gram tablet Take 1 tablet by mouth once daily - indapamide (LOZOL) 2.5 mg tablet Take 1 tablet by mouth once daily. - amLODIPine (NORVASC) 10 mg tablet Take 1 tablet by mouth once daily. - baclofen 5 mg tablet take 1 tablet by mouth three times daily - ascorbic acid, vitamin C, (VITAMIN C) 500 mg tablet 1 tab(s) orally once a day for 30 day(s) - betamethasone dipropionate 0.05 % ointment Apply to affected area twice daily. 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 Hypertension [I10] 04/25/1969 Type 2 diabetes mellitus without retinopathy (H*09/07/2021 Pseudophakia [Z96.1] 09/07/2021 Dry eye syndrome of both eyes [H04.123] 09/07/2021 Meibomian gland dysfunction (MGD) of upper and *09/07/2021 Posterior vitreous detachment, bilateral [H43.8*09/07/2021 Presbyopia of both eyes [H52.4] 09/07/2021 Chronic left shoulder pain [M25.512, G89.29] 10/31/2021 Neck pain [M54.2] 10/31/2021 Arthritis of both knees [M17.0] 02/16/2022 Asthma [J45.909] 04/25/1949 Degenerative disc disease at L5-S1 level [M51.3*12/21/2001 Impingement syndrome of left shoulder region [M*02/16/2022 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 *02/16/2022 Scoliosis [M41.9] 02/16/2022 Sacroiliitis (HCC) [M46.1] 06/20/2023 Prescriptions ordered this encounter Disp Refills Start End ALBUTEROL SULFATE 2.5 MG/3 ML (0.083* 88 mL 1 03/13/2024 Route: NEBULIZATION Sig: Use 3 mL via nebulizer every 4 hours as needed for wheezing/shortness of breath. Medications Discontinued During This Encounter Prescriptions - albuterol (PROVENTIL) 5 mg/mL nebu (Discontinued) Inhale 0.5 mL as instructed every 4 hours as needed for wheezing/shortness of breath. Encounter Status:Closed by BETTY BUENO on 03/13/24 [facility] 03-09-2024 [facility] Telephone ([facility]) AKILA DE LOS SANTOS ([id number]) 1945 F Date Time Provider Department 03/09/24 BETTY BUENO [facility] During your visit today, we recorded the following information about you: Dar Alves 03/09/2024 3:18 PM Signed Please review and complete. Form will be placed in your in box.Thank you Allergies As of Date: 03/09/2024 Noted Allergy Reaction ASPIRIN 03/17/2015 12 - Shortness of Breath LISINOPRIL 07/17/2018 7 - Swelling LATEX 03/17/2015 2 - Rash PENICILLINS 03/17/2015 4 - Hives 2 - Rash SULFAMETHOXAZOLE 03/17/2015 4 - Hives TRILEPTAL (OXCARBAZEPINE) 01/21/2023 14 - Other: See Comments Comments: Balance Problems after taking for a few days Date Reviewed: 03/05/2024 Reviewed by: Ashley Fleming APRN.MULTIPLE SLIDE OPERATOR - Fully Assessed Reason for Visit: Forms [913] Cmt: [facility] Prescriptions as of 03/09/2024 - potassium chloride 20 mEq TbER Take 2 tablets by mouth twice daily - traMADol (ULTRAM) 50 mg tablet Take 1 tablet by mouth at bedtime as needed for pain for up to 90 days. Patient should start on March 10, 2024. - primidone (MYSOLINE) 50 mg tablet TAKE 1 TABLET BY MOUTH ONCE DAILY AT BEDTIME - pregabalin (LYRICA) 50 mg capsule Take one pill three times per day - citalopram (CELEXA) 20 mg tablet Take 1 tablet by mouth once daily - rosuvastatin (CRESTOR) 10 mg tablet take 1 tablet by mouth once daily at bedtime - solifenacin (VESICARE) 5 mg tablet Take 1 tablet by mouth once daily - montelukast (SINGULAIR) 10 mg tablet take 1 tablet by mouth once daily at bedtime - losartan (COZAAR) 50 mg tablet Take 1 tablet by mouth once daily - BREO ELLIPTA 200-25 mcg/dose inhaler Inhale 1 Inhalation as instructed once daily. - valACYclovir (VALTREX) 1 gram tablet Take 1 tablet by mouth once daily - indapamide (LOZOL) 2.5 mg tablet Take 1 tablet by mouth once daily. - amLODIPine (NORVASC) 10 mg tablet Take 1 tablet by mouth once daily. - baclofen 5 mg tablet take 1 tablet by mouth three times daily - Lancets (ACCU-CHEK SOFTCLIX LANCETS) lancets USE DIRECTED 1 ONCE DAILY NEEDED - ascorbic acid, vitamin C, (VITAMIN C) 500 mg tablet 1 tab(s) orally once a day for 30 day(s) - betamethasone dipropionate 0.05 % ointment Apply to affected area twice daily. - blood sugar diagnostic (ACCU-CHEK KAYCEE PLUS TEST STRP) test strip Use as instructed to check blood sugar once daily as needed. - albuterol HFA (VENTOLIN HFA) 90 mcg/actuation inhaler Inhale 2 Puffs as instructed every 4 hours as needed for wheezing/shortness of breath. 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 Hypertension [I10] 04/25/1969 Type 2 diabetes mellitus without retinopathy (H*09/07/2021 Pseudophakia [Z96.1] 09/07/2021 Dry eye syndrome of both eyes [H04.123] 09/07/2021 Meibomian gland dysfunction (MGD) of upper and *09/07/2021 Posterior vitreous detachment, bilateral [H43.8*09/07/2021 Presbyopia of both eyes [H52.4] 09/07/2021 Chronic left shoulder pain [M25.512, G89.29] 10/31/2021 Neck pain [M54.2] 10/31/2021 Arthritis of both knees [M17.0] 02/16/2022 Asthma [J45.909] 04/25/1949 Degenerative disc disease at L5-S1 level [M51.3*12/21/2001 Impingement syndrome of left shoulder region [M*02/16/2022 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 *02/16/2022 Scoliosis [M41.9] 02/16/2022 Sacroiliitis (HCC) [M46.1] 06/20/2023 Encounter Status:Closed by DAR ALVES on 03/09/24 [facility] 03-05-2024 [facility] Office Visit ([facility]) AKILA DE LOS SANTOS ([id number]) 1945 F Date Time Provider Department 03/05/24 1:45 PM ASHLEY FLEMING [facility] During your visit today, we recorded the following information about you: Pulse Respiration Normal [facility] CBC W Auto Differential pane l (Bld)on 01-09-2024 Basophils (Bld) [#/Vol] 0.04 10*3/uL [facility] Basophils/100 WBC (Bld) 0.5 % [facility] Differential cell count method Nom (Bld) Auto [facility] Eosinophils (Bld) [#/Vol] 0.31 10*3/uL [facility] Eosinophils/100 WBC (Bld) 3.8 % [facility] Erythrocyte distribution width (RBC) [Ratio] 11.9 % 11.5 - 15.0 % [facility] Hematocrit (Bld) [Volume fraction] 41.6 % 36.0 - 46.0 % [facility] Hemoglobin (Bld) [Mass/Vol] 13.1 g/dL 11.5 - 15.5 g/dL [facility] Immature granulocytes (Bld) [#/Vol] 0.03 10*3/uL [facility] Immature granulocytes/100 WBC (Bld) 0.4 % [facility] Lymphocytes (Bld) [#/Vol] 2.15 10*3/uL [facility] Lymphocytes/100 WBC (Bld) 26.1 % [facility] MCH (RBC) [Entitic mass] 29.8 pg 26.0 - 34.0 pg [facility] MCHC (RBC) [Mass/Vol] 31.5 g/dL 30.5 - 36.0 g/dL [facility] MCV (RBC) [Entitic vol] 94.8 fL 80.0 - 100.0 fL [facility] Monocytes (Bld) [#/Vol] 0.71 10*3/uL [facility] Monocytes/100 WBC (Bld) 8.6 % [facility] Neutrophils (Bld) [#/Vol] 5.00 10*3/uL [facility] Neutrophils/100 WBC (Bld) 60.6 % [facility] Nucleated RBC (Bld) [#/Vol] NINF [facility] Nucleated RBC/100 WBC (Bld) [Ratio] 0.0 % /100 WBC [facility] Platelet mean volume (Bld) [Entitic vol] 10.5 fL 9.0 - 12.7 fL [facility] Platelets (Bld) [#/Vol] 188 10*3/uL [facility] RBC (Bld) [#/Vol] 4.39 10*6/uL 3.90 - 5.2 0 m/uL [facility] WBC (Bld) [#/Vol] 8.24 10*3/uL [facility] Comprehensive metabolic 2000 panelon 01-09-2024 Albumin [Mass/Vol] 4.3 g/dL 3.9 - 4.9 g/dL [facility] ALP [Catalytic activity/Vol] 111 U/L 34 - 123 U/L [facility] ALT With P-5'-P [Catalytic activity/Vol] 23 U/L 7 - 38 U/L [facility] Anion gap [Moles/Vol] 14 mmol/L 8 - 15 mmol/L [facility] AST With P-5'-P [Catalytic activity/Vol] 28 U/L 13 - 35 U/L [facility] Bilirubin [Mass/Vol] 0.3 mg/dL 0.2 - 1.3 mg/dL [facility] Calcium [Mass/Vol] 8.8 mg/dL 8.5 - 10. 2 mg/dL [facility] Chloride [Moles/Vol] 95 mmol/L Low 98 - 107 mmol/L [facility] CO2 [Moles/Vol] 26 mmol/L 22 - 30 mmol/L [facility] Creatinine [Mass/Vol] 0.85 mg/dL 0.58 - 0.96 mg/dL [facility] GFR/1.73 sq M.predicted among non-blacks MDRD (S/P/Bld) [Vol rate/Area] 70 mL/min/{1.73_m2} - PINF [facility] Comment on above: Estimated Glomerular Filtration Rate (eGFR) is calculated using the 2020 CKD-EPI creatinine equation. This equation utilizes serum creatinine, sex, and age as parameters. The creatinine assay has traceable calibration to isotope dilution-mass spectrometry. Refer to KDIGO guidelines for clinical interpretation. In patients with unstable renal function, e.g. those with acute kidney injury, the eGFR may not accurately reflect actual GFR. Glucose [Mass/Vol] 116 mg/dL High 74 - 99 mg/dL [facility] Comment on above: The [place] Diabete s Association (ADA) provides guidance for cutoff values for fasting glucose and random glucose. The ADA defines fasting as no caloric intake for at least 8 hours. Fasting plasma glucose results between 100 to 125 mg/dL indicate increased risk for diabetes (prediabetes). Fasting plasma glucose results greater than or equal to 126 mg/dL meet the criteria for diagnosis of diabetes. In the absence of unequivocal hyperglycemia, results should be confirmed by repeat testing. In a patient with classic symptoms of hyperglycemia or hyperglycemic crisis, random plasma glucose results greater than or equal to 200 mg/dL meet the criteria for diagnosis of diabetes. Reference: Standards of Medical Care in Diabetes 2016, [place] Diabetes Association. Diabetes Care. 2016.39(Suppl 1). Interpretation and review of laboratory results Abnormal [facility] Potassium [Moles/Vol] 3.9 mmol/L 3.7 - 5.1 mmol/L [facility] Protein [Mass/Vol] 7.1 g/dL 6.3 - 8.0 g/dL [facility] Sodium [Moles/Vol] 135 mmol/L Low 136 - 144 mmol/L [facility] Urea nitrogen [Mass/Vol] 13 mg/dL 7 - 21 mg/dL [facility] HbA1c (Bld)on 01-09-2024 Average glucose Estimated from glycated hemoglobin (Bld) [Mass/Vol] 169 mg/dL [facility] Comment on above: eAG: (Estimated aver age glucose) is a calculated value from HgbA1c and is field representative of the average blood glucose level in the last 2-3 month period. HbA1c (Bld) [Mass fraction] 7.5 % High 4.3 - 5.6 % [facility] Comment on above: [place] Diabetes As sociation guidelines indicate that patients with HgbA1c in the range 5.7-6.4% are at increased risk for development of diabetes, and intervention by lifestyle modification may be beneficial. HgbA1c greater or equal to 6.5% is considered diagnostic of diabetes. Interpretation and review of laboratory results Abnormal [facility] Lipid 1996 panelon Cholesterol [Mass/Vol] 109 mg/dL NINF - 200 mg/dL [facility] Comment on above: <200 mg/dL, Desirabl e 200-239 mg/dL, Borderline high >239 mg/dL, High Cholesterol in HDL [Mass/Vol] 64 mg/dL 39 - PINF mg/dL [facility] Comment on above: 40-59 mg/dL, Accepta ble >59 mg/dL, High: Negative risk factor for coronary heart disease <40 mg/dL, Low: Positive risk factor for coronary heart disease Cholesterol in LDL [Mass/Vol] 30 mg/dL NINF - 100 mg/dL [facility] Comment on above: <100 mg/dL, Optimal 100-129 mg/dL, Near optimal/above optimal 130-159 mg/dL, Borderline high 160-189 mg/dL, High >189 mg/dL, Very high Secondary prevention optimal LDL Cholesterol levels are recommended to be < 70 mg/dL Cholesterol in LDL/Cholesterol in HDL [Mass ratio] 0.47 {ratio} NINF - 2.54 [facility] Comment on above: Reference: 1. National Cholesterol Education Program ATP III Guideline At-A-Glance Quick Desk Reference: National Heart, Lung, and Blood [place]. National Institutes of Health. 2001: NIH Publication No. 01-3305. 2. An International Atherosclerosis Society position paper: global recommendations for the management of dyslipidemia: executive summary, Atherosclerosis. 2014: 232(2):410-413. Cholesterol in VLDL [Mass/Vol] 15 mg/dL NINF - 30 mg/dL [facility] Cholesterol non HDL [Mass/Vol] 45 mg/dL NINF - 130 mg/dL [facility] Comment on above: <130 mg/dL, Optimal 130-159 mg/dL, Near optimal/above optimal 160-189 mg/dL, Borderline high 190-219 mg/dL, High >219 mg/dL, Very high Secondary prevention optimal non HDL Cholesterol levels are recommended to be <100 mg/dL Cholesterol.total/ Cholesterol in HDL [Mass ratio] 1.70 {ratio} NINF - 5.10 [facility] Fasting Time 10 hrs [facility] Triglyceride [Mass/Vol] 73 mg/dL NINF - 150 mg/dL [facility] Comment on above: <150 mg/dL, Normal 150-199 mg/dL, Borderline high 200-499 mg/dL, High >499 mg/dL, Very high [facility] GLUCOSE, BLOOD (POC)on 07-24 -2024 Glucose [Mass/Vol] 125 mg/dL Abnormal 74 - 99 mg/dL [facility] Comment on above: Location:[facility], [facility] [place] [address], [facility] The Accu-Chek Inform II glucose meter has not been approved for testing on patients receiving intensive medical intervention or therapy and results from this point of care glucose test should not be used for patient management decisions in these cases. Inaccurate results may also occur from other interfering factors, such as N-acetylcysteine (blood concentrations of greater than 5mg/dL), galactose, extremes of hematocrit (<10 or >65), or high doses of ascorbic acid (vitamin C) greater than 3mg/dL. Consider alternate testing mechanisms (e.g. core lab, blood gas instrument) in the above situations. Interpretation and review of laboratory results Abnormal [facility] HEMOGLOBIN A1C (POC)on 10-23 HbA1c (Bld) [Mass fraction] 7.8 % Abnormal 4.3 - 5.6 % [facility] Comment on above: Location:[facility], [address] [place] [address], [address] Point of care (POC) Hemoglobin A1c (HGBA1C) testing is intended to assess glucose control and provide a management tool for patients known to have diabetes and their healthcare providers. Target HGBA1C levels may depend on specific clinical circumstances. POC HGBA1C is not intended for use as a diagnostic or screening test; laboratory-based testing should be used for diagnostic purposes. The following information is supplemental and may not be applicable to specific diabetes management situations: The POC device big data platform architect provides a normal range of 4.2% to 6.5% for the HGBA1C POC test. However, the [place] [employer] guidelines indicate that patients with HGBA1C in the range of 5.7% to 6.4% are at increased risk for development of diabetes and that intervention by lifestyle modification may be beneficial. A HGBA1C level greater than or equal to 6.5% is considered diagnostic of diabetes, pending confirmatory testing. Use of HGBA1C testing to evaluate glucose control may not be appropriate for patients with hemoglobin variants or other conditions (e.g. anemia) that alter red blood cell lifespan. Interpretation and review of laboratory results Abnormal [facility] ALBUMIN/CREAT RATIO RND URon 06-16-2023 Albumin Unsp time DL <= 20 mg/L (U) [Mass/Time] 73.3 mg/L [facility] Albumin/Creatinine (U) [Mass ratio] 78 mg/g High <30 mg/g [facility] Creatinine (U) [Mass/Vol] 93.9 mg/dL 42.2 - 237.9 mg/dL [facility] HEMOGLOBIN A1C (POC)on 05-30 HbA1c (Bld) [Mass fraction] 7.3 % Abnormal 4.3 - 5.6 % [facility] GLUCOSE, BLOOD (POC)on 01-17 Glucose [Mass/Vol] 136 mg/dL Abnormal 74 - 99 mg/dL [facility] HbA1c (Bld)on 12-16-2022 Average glucose Estimated from glycated hemoglobin (Bld) [Mass/Vol] 171 mg/dL [facility] HbA1c (Bld) [Mass fraction] 7.6 % High 4.3 - 5.6 % [facility] Lipid 1996 panelon Cholesterol [Mass/Vol] 114 mg/dL <200 mg/dL [facility] Cholesterol in HDL [Mass/Vol] 60 mg/dL >39 mg/dL [facility] Cholesterol in LDL [Mass/Vol] 35 mg/dL <100 mg/dL [facility] Cholesterol in LDL/Cholesterol in HDL [Mass ratio] 0.58 {ratio} <2.54 [facility] Cholesterol in VLDL [Mass/Vol] 19 mg/dL <30 mg/dL [facility] Cholesterol non HDL [Mass/Vol] 54 mg/dL <130 mg/dL [facility] Cholesterol.total/ Cholesterol in HDL [Mass ratio] 1.90 {ratio} <5.10 [facility] Fasting Time 12 hrs [facility] Triglyceride [Mass/Vol] 97 mg/dL <150 mg/dL [facility] XR CERV OTHER 4V AP/LAT/OBLo n 07-30-2022 [facility] URINE CULTUREon 07-28-2022 Bacteria identified Cx Nom (U) >=100,000 CFU/ml Escherichia coli Abnormal [facility] HEMOGLOBIN A1C (POC)on 07-26 HbA1c (Bld) [Mass fraction] 7.7 % Abnormal 4.2 - 5.6 % [facility] UA DIP, URINE (POC)on 2022 BILIRUBIN UA (POCT) Negative Negative [facility] CLARITY UA (POCT) Cloudy [facility] COLOR UA (POCT) Yellow [facility] GLUCOSE UA (POCT) Negative Negative mg/dL [facility] HEMOGLOBIN/BLOOD UA (POCT) Trace-intact Abnormal Negative [facility] KETONE UA (POCT) Negative Negative mg/[facility] LEUKOC[facility]TES [facility]A (POCT) Large Abnormal Negative [facility] NITRITE UA (POCT) Negative Negative [facility] PH UA (POCT) 7.0 4.5 - 8.0 [facility] Protein Ql (U) 30 mg/dL Abnormal Negative mg/dL [facility] SPECIFIC GRAVITY UA (POCT) 1.020 1.005 - 1.030 [facility] UROBILINOGEN UA (POCT) 0.2 E.U./dL Normal E.U./dL [facility] URINE CULTUREon 07-26-2022 Bacteria identified Cx Nom (U) Invalid Interpretation Code [facility] Urinalysis complete panel (U )on 07-26-2022 Bacteria LM.HPF (Urine sed) [#/Area] Few Abnormal None Seen /HPF [facility] Bilirubin Ql (U) Negative Negative [facility] Clarity (Unsp spec) Turbid Abnormal Clear [facility] Color (U) Light Yellow yellow [facility] Epithelial cells LM.HPF (Urine sed) [#/Area] Few Abnormal None Seen /HPF [facility] Glucose Test strip (U) [Mass/Vol] Negative Trace, Negative [facility] Hemoglobin Ql (U) Negative Negative, Trace [facility] Ketones Ql (U) Negative Negative, Trace [facility] Leukocyte esterase Test strip Ql (U) 500 Osmar/uL Abnormal Negative, 25 Osmar/uL [facility] Nitrite Ql (U) 1+ Abnormal Negative [facility] pH (U) 7.0 [pH] 5.0 - 8.0 [facility] Protein (U) [Mass/Vol] 1+ Abnormal Trace, Negative [facility] RBC LM.HPF (Urine sed) [#/Area] 11-25 /HPF Abnormal 0-3 /HPF [facility] Specific gravity (U) [Rel density] 1.013 1.005 - 1.030 [facility] Urobilinogen Ql (U) Normal Negative [facility] WBC LM.HPF (Urine sed) [#/Area] /[HPF] Abnormal 0-5 /HPF [facility] Yeast.budding LM.HPF (Urine sed) [#/Area] Few Abnormal None Seen /HPF [facility] UA DIP, URINE (POC)on 2021 BILIRUBIN UA (POCT) Negative Negative [facility] CLARITY UA (POCT) Cloudy [facility] COLOR UA (POCT) Yellow [facility] GLUCOSE UA (POCT) Negative Negative mg/dL [facility] HEMOGLOBIN/BLOOD UA (POCT) Trace-intact Abnormal Negative [facility] KETONE UA (POCT) Negative Negative mg/dL [facility] LEUKOCYTES UA (POCT) Moderate Abnormal Negative [facility] NITRITE UA (POCT) Negative Negative [facility] PH UA (POCT) 7.0 4.5 - 8.0 [facility] Protein Ql (U) 100 mg/dL Abnormal Negative mg/dL [facility] SPECIFIC GRAVITY UA (POCT) 1.020 1.005 - 1.030 [facility] UROBILINOGEN UA (POCT) 0.2 E.U./dL Normal E.U./dL [facility] Basic metabolic 2000 panelon 09-07-2021 Anion gap [Moles/Vol] 9 mmol/L 9 - 18 mmol/L [facility] Calcium [Mass/Vol] 9.7 mg/dL 8.5 - 10. 2 mg/dL [facility] Chloride [Moles/Vol] 100 mmol/L 97 - 105 mmol/L [facility] CO2 [Moles/Vol] 30 mmol/L 22 - 30 mmol/L [facility] Creatinine [Mass/Vol] 0.94 mg/dL 0.58 - 0.96 mg/dL [facility] Estimated Glomerular Filtration Rate 63 mL/min/1.73m >=60 mL/min/1.73m [facility] Glucose [Mass/Vol] 113 mg/dL High 74 - 99 mg/dL [facility] Potassium [Moles/Vol] 4.2 mmol/L 3.7 - 5.1 mmol/L [facility] Sodium [Moles/Vol] 139 mmol/L 136 - 144 mmol/L [facility] Urea nitrogen [Mass/Vol] 12 mg/dL 7 - 21 mg/dL [facility] LIPID PANEL BASICon 09-08-19 Cholesterol [Mass/Vol] 125 mg/dL <200 mg/dL [facility] Cholesterol in HDL [Mass/Vol] 76 mg/dL >39 mg/dL [facility] Cholesterol in LDL [Mass/Vol] 38 mg/dL <100 mg/dL [facility] Cholesterol in LDL/Cholesterol in HDL [Mass ratio] 0.50 {ratio} <2.54 [facility] Cholesterol in VLDL [Mass/Vol] 11 mg/dL <30 mg/dL [facility] Cholesterol non HDL [Mass/Vol] 49 mg/dL <130 mg/dL [facility] Cholesterol.total/ Cholesterol in HDL [Mass ratio] 1.64 {ratio} <5.10 [facility] Fasting Time 12 hrs [facility] Triglyceride [Mass/Vol] 56 mg/dL <150 mg/dL [facility] VITAMIN B12 BLOODon 09-08-19 Cobalamin (Vitamin B12) [Mass/Vol] 1342 pg/mL High 232-1,245 pg/mL [facility] HEMOGLOBIN A1C (POC)on 08-28 HbA1c (Bld) [Mass fraction] 7.1 % Abnormal 4.2 - 5.6 % [facility] NM CARDIAC PERF STRESS/PHARM on 07-16-2021 [facility] XR CHEST 2V FRONTAL/LATon [facility] ECHOon 05-06-2021 [facility] GLUCOSE, BLOOD (POC)on 04-07 Glucose [Mass/Vol] 105 mg/dL Abnormal 74 - 99 mg/dL [facility] Comprehensive metabolic 2000 panelon 02-13-2021 Albumin [Mass/Vol] 4.6 g/dL 3.9 - 4.9 g/dL [facility] ALP [Catalytic activity/Vol] 67 U/L 34 - 123 U/L [facility] ALT With P-5'-P [Catalytic activity/Vol] 20 U/L 7 - 38 U/L [facility] Anion gap [Moles/Vol] 11 mmol/L 9 - 18 mmol/L [facility] AST With P-5'-P [Catalytic activity/Vol] 25 U/L 13 - 35 U/L [facility] Bilirubin [Mass/Vol] 0.3 mg/dL 0.2 - 1.3 mg/dL [facility] Calcium [Mass/Vol] 9.7 mg/dL 8.5 - 10. 2 mg/dL [facility] Chloride [Moles/Vol] 102 mmol/L 97 - 105 mmol/L [facility] CO2 [Moles/Vol] 28 mmol/L 22 - 30 mmol/L [facility] Creatinine [Mass/Vol] 0.87 mg/dL 0.58 - 0.96 mg/dL [facility] GFR/1.73 sq M.predicted MDRD (S/P/Bld) [Vol rate/Area] mL/min/{1.73_m2} [facility] Glucose [Mass/Vol] 104 mg/dL High 74 - 99 mg/dL [facility] Potassium [Moles/Vol] 4.3 mmol/L 3.7 - 5.1 mmol/L [facility] Protein [Mass/Vol] 7.0 g/dL 6.3 - 8.0 g/dL [facility] Sodium [Moles/Vol] 141 mmol/L 136 - 144 mmol/L [facility] Urea nitrogen [Mass/Vol] 10 mg/dL 7 - 21 mg/dL [facility] Laboratory - Chemistry and C hemistry - challengeon 02-13-2021 Albumin Unsp time DL <= 20 mg/L (U) [Mass/Time] 45.9 mg/L [facility] Albumin/Creatinine (U) [Mass ratio] 19 mg/g <30 mg/g [facility] Creatinine (U) [Mass/Vol] 238.3 mg/dL High 42.2 - 237.9 mg/dL [facility] Magnesium [Mass/Vol] 1.7 mg/dL 1.7 - 2.3 mg/dL [facility] TSH Qn 1.760 m[IU]/L 0.270 - 4.200 uU/mL [facility] Laboratory - Hematology and Cell countson 02-13-2021 HbA1c (Bld) [Mass fraction] 6.2 % 4.2 - 5.6 % [facility] No Panel Informationon 11-27 [facility] Comprehensive metabolic 2000 panelon 11-06-2020 Albumin [Mass/Vol] 4.3 g/dL 3.9 - 4.9 g/dL [facility] ALP [Catalytic activity/Vol] 67 U/L 34 - 123 U/L [facility] ALT With P-5'-P [Catalytic activity/Vol] 18 U/L 7 - 38 U/L [facility] Anion gap [Moles/Vol] 10 mmol/L 9 - 18 mmol/L [facility] AST With P-5'-P [Catalytic activity/Vol] 22 U/L 13 - 35 U/L [facility] Bilirubin [Mass/Vol] 0.3 mg/dL 0.2 - 1.3 mg/dL [facility] Calcium [Mass/Vol] 9.2 mg/dL 8.5 - 10. 2 mg/dL [facility] Chloride [Moles/Vol] 101 mmol/L 97 - 105 mmol/L [facility] CO2 [Moles/Vol] 29 mmol/L 22 - 30 mmol/L [facility] Creatinine [Mass/Vol] 0.79 mg/dL 0.58 - 0.96 mg/dL [facility] GFR/1.73 sq M.predicted MDRD (S/P/Bld) [Vol rate/Area] mL/min/{1.73_m2} [facility] Glucose [Mass/Vol] 110 mg/dL High 74 - 99 mg/dL [facility] Potassium [Moles/Vol] 4.3 mmol/L 3.7 - 5.1 mmol/L [facility] Protein [Mass/Vol] 6.6 g/dL 6.3 - 8.0 g/dL [facility] Sodium [Moles/Vol] 140 mmol/L 136 - 144 mmol/L [facility] Urea nitrogen [Mass/Vol] 10 mg/dL 7 - 21 mg/dL [facility] Laboratory - Chemistry and C hemistry - challengeon 11-06-2020 Cobalamin (Vitamin B12) [Mass/Vol] 273 pg/mL 232-1,245 pg/mL [facility] Folate [Mass/Vol] 14.8 ng/mL >4.7 ng/mL [facility] Cholesterol [Mass/Vol] 210 mg/dL High <200 mg/dL [facility] Cholesterol in HDL [Mass/Vol] 90 mg/dL >39 mg/dL [facility] Cholesterol in LDL [Mass/Vol] 99 mg/dL <100 mg/dL [facility] Cholesterol in LDL/Cholesterol in HDL [Mass ratio] 1.10 {ratio} <2.54 [facility] Cholesterol in VLDL [Mass/Vol] 21 mg/dL <30 mg/dL [facility] Cholesterol non HDL [Mass/Vol] 120 mg/dL <130 mg/dL [facility] Cholesterol.total/ Cholesterol in HDL [Mass ratio] 2.33 {ratio} <5.10 [facility] Magnesium [Mass/Vol] 1.6 mg/dL Low 1.7 - 2.3 mg/dL [facility] Triglyceride [Mass/Vol] 103 mg/dL <150 mg/dL [facility] No Panel Informationon 11-06 Fasting Time 12 hrs [facility] CNPNon 09-19-2020 CNPN Telephone ([facility]) AKILA DE LOS SANTOS ([id number]) 1945 F Date Time Provider Department 09/19/20 BETTY BUENO [facility] During your visit today, we recorded the following information about you: [facility] 09/19/2020 1:16 PM Signed Pt is asking to be seen by . The pt says she knows . Please advise if you want to see this pt as a new pt we can make her apt. If you want her to see a resident let us know as well. Either way she wants us to call her back with the out come. Please Advise MG Betty Bueno MD 09/23/2020 9:07 AM Signed I can see her. Thanks. [facility] Allergies As of Date: 09/19/2020 (Not on File) Date Reviewed: Never Reviewed Reason for Visit: Appointment [[id number]] Problem List As Of Date: 09/19/2020 (None) Encounter Status:Closed by [facility] on 09/19/20 Normal [facility] CBC W/Diff, Automatedon 07-24 Absolute Lymph 1.34 X10 3/uL Normal 0.83-4.51 [facility] Comment on above: Performed By: #### L 500.4050, L100.0100 #### [facility] [address] [place], [address] Absolute Neut 3.7 X10 3/uL Normal 2.0-7.7 [facility] Comment on above: Performed By: #### L 500.4050, L100.0100 #### [facility] [address] [place], [address] Basophils/100 WBC (Bld) 0.5 % Normal 0-1 [facility] Comment on above: Performed By: #### L 500.4050, L100.0100 #### [facility] [address] [place], [address] Eosinophils/100 WBC (Bld) 3.7 % Normal 0-5 [facility] Comment on above: Performed By: #### L 500.4050, L100.0100 #### [facility] [address] [place], [address] Erythrocyte distribution width (RBC) [Ratio] 11.8 % Normal 11.6-14.6 [facility] Comment on above: Performed By: #### L 500.4050, L100.0100 #### [facility] [address] [place], [address] Hematocrit (Bld) [Volume fraction] 39.3 % Normal 37-47 [facility] Comment on above: Performed By: #### L 500.4050, L100.0100 #### [facility] [address] [place], [address] Hemoglobin (Bld) [Mass/Vol] 11.9 g/dL Low 12.0-15.0 [facility] Comment on above: Performed By: #### L 500.4050, L100.0100 #### [facility] [address] [place], [address] IG% 0.400 Normal 0.0-0.9 [facility] Comment on above: Result Comment: IG% - Immature Granulocytes (promyelocytes, myelocytes and metamyelocytes) > 1% indicates that a LEFT SHIFT is Present. Performed By: #### L 500.4050, L100.0100 #### [facility] [address] [place], [address] Lymphocytes/100 WBC (Bld) 23.5 % Normal 19-41 [facility] Comment on above: Performed By: #### L 500.4050, L100.0100 #### [facility] [address] [place], [address] MCH (RBC) [Entitic mass] 28.2 pg Normal 27.0-32.0 [facility] Comment on above: Performed By: #### L 500.4050, L100.0100 #### [facility] [address] [place], [address] MCHC (RBC) [Mass/Vol] 30.3 g/dL Low 32-36 [facility] Comment on above: Performed By: #### L 500.4050, L100.0100 #### [facility] [address] [place], [address] MCV (RBC) [Entitic vol] 93.1 fL Normal 81-99 [facility] Comment on above: Performed By: #### L 500.4050, L100.0100 #### [facility] [address] [place], [address] Monocytes/100 WBC (Bld) 7.2 % Normal 0-10 [facility] Comment on above: Performed By: #### L 500.4050, L100.0100 #### [facility] [address] [place], [address] Neutrophils/100 WBC (Bld) 64.7 % Normal 47-70 [facility] Comment on above: Performed By: #### L 500.4050, L100.0100 #### [facility] [address] [place], [address] Nucleated RBC (Bld) [#/Vol] 0 10*3/uL Normal 0-5 [facility] Comment on above: Performed By: #### L 500.4050, L100.0100 #### [facility] [address] [place], [address] Platelet mean volume (Bld) [Entitic vol] 10.5 fL Normal 6.2-12.0 [facility] Comment on above: Performed By: #### L 500.4050, L100.0100 #### [facility] [address] [place], [address] Platelets (Bld) [#/Vol] 194 10*3/uL Normal 150-450 [facility] Comment on above: Performed By: #### L 500.4050, L100.0100 #### [facility] [address] [place], [address] RBC (Bld) [#/Vol] 4.22 10*6/uL Normal 4.2-5.4 [facility] Comment on above: Performed By: #### L 500.4050, L100.0100 #### [facility] [address] [place], [address] RDW SD 40.0 fl Normal 35.1-43.9 [facility] Comment on above: Performed By: #### L 500.4050, L100.0100 #### [facility] [address] [place], [address] WBC (Bld) [#/Vol] 5.7 10*3/uL Normal 4.4-11.0 [facility] Comment on above: Performed By: #### L 500.4050, L100.0100 #### [facility] [address] [place], [address] Comprehensive Metabolic Prof [email or web address] 08-05-2020 Albumin [Mass/Vol] 3.4 g/dL Normal 3.2-5.0 [facility] Comment on above: Performed By: #### L 500.4050, L100.0100 #### [facility] [address] [place], [address] Albumin/Globulin [Mass ratio] 1.0 {ratio} Normal 0.9-2.4 [facility] Comment on above: Performed By: #### L 500.4050, L100.0100 #### [facility] [address] [place], [address] ALK P 62 U/L Normal 45-117 [facility] Comment on above: Performed By: #### L 500.4050, L100.0100 #### [facility] [address] [place], [address] ALT [Catalytic activity/Vol] 25 U/L Normal 13-56 [facility] Comment on above: Performed By: #### L 500.4050, L100.0100 #### [facility] [address] [place], [address] AST [Catalytic activity/Vol] 17 U/L Normal 15-37 [facility] Comment on above: Performed By: #### L 500.4050, L100.0100 #### [facility] [address] [place], [address] Bilirubin [Mass/Vol] 0.20 mg/dL Normal 0.20-1.00 [facility] Comment on above: Result Comment: For patients on eltrombopag therapy, use of Dimension [place] TBIL is not recommended. Performed By: #### L 500.4050, L100.0100 #### [facility] [address] [place], [address] BUN/CRE 11.8 RATIO Normal 10-20 [facility] Comment on above: Performed By: #### L 500.4050, L100.0100 #### [facility] [address] [place], [address] CA,Total 9.1 mg/dL Normal 8.5-10.1 [facility] Comment on above: Performed By: #### L 500.4050, L100.0100 #### [facility] [address] [place], [address] Chloride [Moles/Vol] 105 mmol/L Normal 98-107 [facility] Comment on above: Performed By: #### L 500.4050, L100.0100 #### [facility] [address] [place], [address] CO2 [Moles/Vol] 28.0 mmol/L Normal 21.0-32.0 [facility] Comment on above: Performed By: #### L 500.4050, L100.0100 #### [facility] [address] [place], [address] Creatinine [Mass/Vol] 0.94 mg/dL Normal 0.55-1.02 [facility] Comment on above: Result Comment: The validity of the calculated GFR GFRAA in patients over 70 years has not been determined. Clinical correlation is essential. Performed By: #### L 500.4050, L100.0100 #### [facility] [address] [place], [address] EST GFR - AA 75 mL/min Normal >60 [facility] Comment on above: Result Comment: Afri can Tr[place] GFR Calc Performed By: #### L 500.4050, L100.0100 #### [facility] [address] [place], [address] GAP 6 Normal 5-15 [facility] Comment on above: Performed By: #### L 500.4050, L100.0100 #### [facility] [address] [place], [address] GFR/1.73 sq M.predicted among non-blacks MDRD (S/P/Bld) [Vol rate/Area] 62 mL/min/{1.73_m2} Normal >60 [facility] Comment on above: Result Comment: Non- GFR Calc Performed By: #### L 500.4050, L100.0100 #### [facility] [address] [place], [address] Globulin (S) [Mass/Vol] 3.3 g/dL Normal 2.2-4.2 [facility] Comment on above: Performed By: #### L 500.4050, L100.0100 #### [facility] [address] [place], [address] Glucose [Mass/Vol] 168 mg/dL High 74-106 [facility] Comment on above: Result Comment: Fast ing Glucose result greater than or equal to 126 mg/dL suggests DIABETES MELLITUS per A.D.A. criteria. Please note revised GLUCOSE reference range effective 2017. Performed By: #### L 500.4050, L100.0100 #### [facility] [address] [place], [address] Potassium [Moles/Vol] 4.0 mmol/L Normal 3.5-5.1 [facility] Comment on above: Performed By: #### L 500.4050, L100.0100 #### [facility] [address] [place], [address] Sodium [Moles/Vol] 139 mmol/L Normal 136-145 [facility] Comment on above: Performed By: #### L 500.4050, L100.0100 #### [facility] [address] [place], [address] T PROT 6.7 g/dL Normal 6.4-8.2 [facility] Comment on above: Performed By: #### L 500.4050, L100.0100 #### [facility] [address] [place], [address] Urea nitrogen [Mass/Vol] 11 mg/dL Normal 7-18 [facility] Comment on above: Performed By: #### L 500.4050, L100.0100 #### [facility] [address] [place], [address] Internal Medicine Office Vis iton 08-05-2020 Internal Medicine Office Visit [facility] [address] [place] [address] [place] [address] OFFICE VISIT Date of Service: 08/05/20 MR#: [id number] Acct: [id number] Name: AKILA DE LOS SANTOS Rep #: [id number] : 1945 Provider: Dr. Lawrence waite MD Age/Sex: 75/F Location[place] [facility] Status: Signed Intake Vital Signs 08/05/20 Height 5 ft 1 in 08/05/20 Weight: 153 lb 08/05/20 BMI 28.9 08/05/20 BP 102/66 08/05/20 Blood Pressure Location Rt brachial 08/05/20 Position Sitting 08/05/20 Respiration 14 08/05/20 Pulse 89 08/05/20 Pulse Source Monitor 08/05/20 Temp 98.0 F 08/05/20 Temp Source Temporal 08/05/20 Pulse Oximetry (%) 98 08/05/20 Oxygen Delivery Method room air Intake Visit Reasons: 3 M FU Chief Complaint: 3 M F/U chronic medical conditions Is patient in pain?: Yes (BACK PAIN) Pain scale (1-10): 4 Allergies lisinopril Allergy (Severe, Verified 08/05/20 14:15) swelling aspirin Allergy (Verified 08/05/20 14:15) Shortness of breath latex Allergy (Verified 08/05/20 14:15) Rash Penicillins Allergy (Verified 08/05/20 14:15) Rash Sulfa (Sulfonamide Antibiotics) Allergy (Verified 08/05/20 14:15) Hives Medications Calcium Phosphate Trib/Vit D3 [Citracal-D3 250 mg Gummy] 1 ea PO BID 07/10/17 [History Confirmed 08/05/20] Fish Oil/Dha/Epa [Fish Oil 1,200 mg Fish Oil] 2 ea PO BID 11/01/16 [History Confirmed 08/05/20] Diclofenac Sodium [Voltaren] 100 gm TP PRN PRN 05/16/17 [History Confirmed 08/05/20] albuterol sulfate 90 mcg/actuation aerosol inhaler 1 - 2 puff INHALATION Q4H PRN PRN 90 Days #8.5 g 12/29/18 [Rx Confirmed 08/05/20] blood sugar diagnostic See Rx Instructions .ROUTE .MEDSUPPLY #100 ea 05/14/19 [Rx Confirmed 08/05/20] lancets See Rx Instructions .ROUTE .MEDSUPPLY #200 ea 05/14/19 [Rx Confirmed 08/05/20] diclofennac 3/gabapetin 6/lidocain 4% TOPICAL 05/22/19 [History Confirmed 08/05/20] doxazosin 2 mg tablet 2 mg PO BID #30 tab 10/18/19 [Rx Confirmed 08/05/20] gabapentin 400 mg capsule 400 mg PO TID 60 Days #180 cap 12/05/19 [Rx Confirmed 08/05/20] tramadol 50 mg tablet 50 mg PO TID PRN #42 tab 02/01/20 [Rx Confirmed 08/05/20] famotidine 40 mg tablet 40 mg PO DAILY #60 tab 02/12/20 [Rx Confirmed 08/05/20] albuterol sulfate 2.5 mg INHALATION Q6H PRN #90 ml 02/15/20 [Rx Confirmed 08/05/20] nebulizer accessories See Rx Instructions .ROUTE .MEDSUPPLY #1 ea 02/15/20 [Rx Confirmed 08/05/20] nebulizers See Rx Instructions .ROUTE .MEDSUPPLY #1 ea 02/15/20 [Rx Confirmed 08/05/20] fluticasone furoate 200 mcg-vilanterol 25 mcg/dose inhalation powder 1 ea INHALATION DAILY 60 Days #60 ea 04/02/20 [Rx Confirmed 08/05/20] Handicap Placard See Rx Instructions .ROUTE .MEDSUPPLY #1 ea 04/15/20 [Rx Confirmed 08/05/20] blood sugar diagnostic See Rx Instructions .ROUTE .MEDSUPPLY #100 ea 06/20/20 [Rx Confirmed 08/05/20] amlodipine 5 mg tablet 5 mg PO DAILY #90 tab 06/24/20 [Rx Confirmed 08/05/20] indapamide 1.25 mg tablet 1.25 mg PO DAILY #90 tab 06/24/20 [Rx Confirmed 08/05/20] potassium chloride 20 mEq tablet,extended release(part/cryst) See Rx Instructions .ROUTE .COMPLEX #360 tab 07/01/20 [Rx Confirmed 08/05/20] estradiol 1 mg tablet 1 mg PO DAILY #90 tab 07/29/20 [Rx Confirmed 08/05/20] montelukast 10 mg tablet 10 mg PO QHS #90 tab 07/29/20 [Rx Confirmed 08/05/20] PFSH Medical History Diabetes (Chronic) Hypertension (Chronic) Hyperlipemia (Chronic) Neuropathy (Chronic) History of TIA (transient ischemic attack) (Acute) Chronic back pain (Chronic) Asthma (Chronic) Arthritis (Chronic) Seasonal allergies (Chronic) Cataracts, both eyes (Acute) Degenerative disc disease (Acute) Fatigue (Acute) History of blood clots (Acute) Osteoarthritis (Acute) PAD (peripheral artery disease) (Acute) SOB (shortness of breath) (Acute) Scoliosis (Acute) Shoulder pain (Acute) Surgical History History of back surgery (Acute) History of laparoscopy (Acute) History of partial hysterectomy (Acute) History of right cataract extraction (Acute) Family History Other Alcoholism Arthritis Asthma Diabetes Heart disease Hypertension Myocardial infarction Social History Smoking Status: Never smoker Tobacco: How many years used: 10 alcohol intake: never substance use type: does not use what type of physical activity do you participate in: weight training, other details: silver sneakers frequency: 1-2 times per week HPI HPI Chief Complaint: 3 M F/U chronic medical conditions Details: AKILA DE LOS SANTOS, is a 75 F who presents to the office today for follow-up of her chronic medical conditions. No acute concerns at this time. 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 [facility] Lab Report: Bedside Glucoseo n 11-01-2016 Glucose 89 mg/dL Invalid Interpretation Code 70-110 [facility] [employer] Work Phone: Office Visit: Screening [facility] noscopyon 10-11-2016 Documentation of current medications (procedure) Done Invalid Interpretation Code [facility] [employer] Work Phone: Fall risk assessment No Invalid Interpretation Code [facility] [employer] Work Phone: Tobacco smoking status NHIS Never Invalid Interpretation Code [facility] [employer] Work Phone: Tobacco use [facility] Never smoker Invalid Interpretation Code [facility] [employer] Work Phone: Rx Refill: eRx Request for G ABAPENTIN 100 MG Capsuleon 10-14-2015 [employer] messenger refill request [id number]`GABAPENTIN 100 MG Capsule```630 Capsule`90`TAKE 2 CAPSULES IN THE MORNING AND AT NOON, THEN TAKE 3 CAPSULES AT BEDTIME``2`0` 5`No date sent`[employer] Rx*`[id number]``GABAPENTIN 100 MG Capsule Quantity: 630 Capsule Instructions: TAKE 2 CAPSULES IN THE MORNING AND AT NOON, THEN TAKE 3 CAPSULES AT BEDTIME [employer] [facility] [employer] Work Phone: Office Visit: 3 Month follow up diabeteson 06-17-2015 HbA1c 5.8 % Invalid Interpretation Code [facility] [employer] Work Phone: Lab Report: Serum Creatinine AND GFRon 05-26-2015 Creatinine 0.94 mg/dL Invalid Interpretation Code 0.55-1.20 [facility] [employer] Work Phone: eGFR (non-black) 63 mL/min/{1.73_m2} Invalid Interpretation Code >60 [facility] [employer] Work Phone: eGFR (non-black) 76 mL/min/{1.73_m2} Invalid Interpretation Code >60 [facility] [employer] Work Phone: Office Visit: Screening [facility] noscopyon 04-28-2015 Breast Mammogram screening Normal Bilateral Invalid Interpretation Code [facility] [employer] Work Phone: Office Visit: Screening [facility] noscopyon 04-27-1982 General categories [interpretation] of Cervical or vaginal smear or scraping by Cyto stain hysterectomy Invalid Interpretation Code [facility] [employer] Work Phone: Vital Signs Date Time Vital Sign Value Performing Clinician Nia milo 12-19-2024 07:21-0400 Diastolic blood pressure 68 mm[Hg] Bo Valverde MD, PhD Work Phone: [facility] 12-19-2024 07:21-0400 Heart rate 60 /min Bo Valverde MD, PhD Work Phone: [facility] 12-19-2024 07:21-0400 Respiratory rate 18 /min Bo Valverde MD, PhD Work Phone: [facility] 12-19-2024 07:21-0400 SaO2% (BldA) [Mass fraction] 97 % Bo Valverde MD, PhD Work Phone: [facility] 12-19-2024 07:21-0400 Systolic blood pressure 145 mm[Hg] Bo Valverde MD, PhD Work Phone: [facility] 11-20-2024 11:15-0400 Body height 154.[address] Work Phone: [facility] 11-20-2024 11:15-0400 Body mass index (BMI) [Ratio] 27.96 kg/m2 Yanna Feliz RD Work Phone: [facility] 11-20-2024 11:15-0400 Body weight 67.[address] Work Phone: [facility] Comment on above: per patient report 11-19-2024 13:06-0400 Body height 154.9 cm Arvind Haider DO Work Phone: [facility] 11-19-2024 13:06-0400 Body mass index (BMI) [Ratio] 28.91 kg/m2 Arvind Haider DO Work Phone: [facility] 11-19-2024 13:06-0400 Body weight 69.4 kg Arvind Forkapa DO Work Phone: [facility] 11-19-2024 13:06-0400 Respiratory rate 16 /min Arvind Haider DO Work Phone: [facility] 11-12-2024 14:58-0400 Heart rate 72 /min Marcial Sindledecker DESK CLERK.MULTIPLE SLIDE OPERATOR Work Phone: [facility] 11-12-2024 14:58-0400 Respiratory rate 18 /min Marcial Sindledecker DESK CLERK.MULTIPLE SLIDE OPERATOR Work Phone: [facility] 11-12-2024 14:58-0400 SaO2% (BldA) [Mass fraction] 99 % Marcial Sindledecker DESK CLERK.MULTIPLE SLIDE OPERATOR Work Phone: [facility] 10-15-2024 14:36-0400 Diastolic blood pressure 74 mm[Hg] Kalin Esposito MD Work Phone: [facility] 10-15-2024 14:36-0400 Heart rate 63 /min Kalin Esposito MD Work Phone: [facility] 10-15-2024 14:36-0400 Respiratory rate 16 /min Kalin Esposito MD Work Phone: [facility] 10-15-2024 14:36-0400 SaO2% (BldA) [Mass fraction] 100 % Kalin Esposito MD Work Phone: [facility] 10-15-2024 14:36-0400 Systolic blood pressure 118 mm[Hg] Kalin Esposito MD Work Phone: [facility] 10-12-2024 10:10-0400 Body height 154.9 cm Betty Bueno MD Work Phone: [facility] 10-12-2024 10:10-0400 Body mass index (BMI) [Ratio] 28.91 kg/m2 Betty Bueno MD Work Phone: [facility] 10-12-2024 10:10-0400 Body temperature 96.91 [degF] Betty Bueno MD Work Phone: [facility] 10-12-2024 10:10-0400 Body weight 69.4 kg Betty Bueno MD Work Phone: [facility] 10-12-2024 10:10-0400 Diastolic blood pressure 74 mm[Hg] Betty Bueno MD Work Phone: [facility] 10-12-2024 10:10-0400 Heart rate 73 /min Betty Bueno MD Work Phone: [facility] 10-12-2024 10:10-0400 Systolic blood pressure 138 mm[Hg] Betty Bueno MD Work Phone: [facility] 09-19-2024 12:54-0400 Body height 154.9 cm Arvind Forkapa DO Work Phone: [facility] 09-19-2024 12:54-0400 Body mass index (BMI) [Ratio] 27.78 kg/m2 Arvind Forkapa DO Work Phone: [facility] 09-19-2024 12:54-0400 Body weight 66.68 kg Arvind Forkapa DO Work Phone: [facility] 09-19-2024 12:54-0400 Respiratory rate 18 /min Arvind Forkapa DO Work Phone: [facility] 09-04-2024 14:54-0400 Heart rate 63 /min Kalin Esposito MD Work Phone: [facility] 09-04-2024 14:54-0400 Respiratory rate 17 /min Kalin Esposito MD Work Phone: [facility] 09-04-2024 14:54-0400 SaO2% (BldA) [Mass fraction] 96 % Kalin Esposito MD Work Phone: [facility] 07-16-2024 14:55-0400 Body height 154.9 cm Arvind Forkapa DO Work Phone: [facility] 07-16-2024 14:55-0400 Body mass index (BMI) [Ratio] 27.78 kg/m2 Arvind Forkapa DO Work Phone: [facility] 07-16-2024 14:55-0400 Body weight 66.68 kg Arvind Forkapa DO Work Phone: [facility] 07-16-2024 14:55-0400 Respiratory rate 20 /min Arvind Forkapa DO Work Phone: [facility] 07-11-2024 13:15-0400 Body mass index (BMI) [Ratio] 27.78 kg/m2 Betty Bueno MD Work Phone: [facility] 07-11-2024 13:15-0400 Body temperature 97.5 [degF] Betty Bueno MD Work Phone: [facility] 07-11-2024 13:15-0400 Body weight 66.68 kg Betty Bueno MD Work Phone: [facility] 07-11-2024 13:15-0400 Diastolic blood pressure 73 mm[Hg] Betty Bueno MD Work Phone: [facility] 07-11-2024 13:15-0400 Heart rate 83 /min Betty Bueno MD Work Phone: [facility] 07-11-2024 13:15-0400 Systolic blood pressure 123 mm[Hg] Betty Bueno MD Work Phone: [facility] 06-25-2024 14:33-0500 Heart rate 58 /min Ashley Fleming APRN.MULTIPLE SLIDE OPERATOR Work Phone: [facility] 06-25-2024 14:33-0500 Respiratory rate 15 /min Ashley Fleming APRN.MULTIPLE SLIDE OPERATOR Work Phone: [facility] 06-25-2024 14:33-0500 SaO2% (BldA) [Mass fraction] 99 % Ashley Fleming APRN.MULTIPLE SLIDE OPERATOR Work Phone: [facility] 06-11-2024 09:05-0500 Diastolic blood pressure 63 mm[Hg] Kalin Esposito MD Work Phone: [facility] 06-11-2024 09:05-0500 Heart rate 63 /min Kalin Esposito MD Work Phone: [facility] 06-11-2024 09:05-0500 Respiratory rate 14 /min Kalin Esposito MD Work Phone: [facility] 06-11-2024 09:05-0500 SaO2% (BldA) [Mass fraction] 100 % Kalin Esposito MD Work Phone: [facility] 06-11-2024 09:05-0500 Systolic blood pressure 134 mm[Hg] Kalin Esposito MD Work Phone: [facility] 06-04-2024 13:30-0500 Heart rate 64 /min Ashley Dapoz DESK CLERK.MULTIPLE SLIDE OPERATOR Work Phone: [facility] 06-04-2024 13:30-0500 Respiratory rate 16 /min Ashley Dapoz DESK CLERK.MULTIPLE SLIDE OPERATOR Work Phone: [facility] 06-04-2024 13:30-0500 SaO2% (BldA) [Mass fraction] 99 % Ashley Dapoz DESK CLERK.MULTIPLE SLIDE OPERATOR Work Phone: [facility] 05-04-2024 13:16-0500 Body height 154.9 cm Fantannerei Asmita DO Work Phone: [facility] 05-04-2024 13:16-0500 Body mass index (BMI) [Ratio] 27.78 kg/m2 Fangfei Asmita DO Work Phone: [facility] 05-04-2024 13:16-0500 Body weight 66.68 kg Fangfei Asmita DO Work Phone: [facility] 05-04-2024 13:16-0500 Diastolic blood pressure 61 mm[Hg] Fangfei Asmita DO Work Phone: [facility] 05-04-2024 13:16-0500 Heart rate 70 /min Fangfei Asmita DO Work Phone: [facility] 05-04-2024 13:16-0500 SaO2% (BldA) [Mass fraction] 100 % Fansofia Asmita DO Work Phone: [facility] 05-04-2024 13:16-0500 Systolic blood pressure 128 mm[Hg] Charan Rodriguezo DO Work Phone: [facility] 04-27-2024 10:14-0500 Heart rate 76 /min Kalin Esposito MD Work Phone: [facility] 04-27-2024 10:14-0500 SaO2% (BldA) [Mass fraction] 95 % Kalin Esposito MD Work Phone: [facility] 04-16-2024 13:09-0500 Body height 154.9 cm Chuck Mikulski PA-C Work Phone: [facility] 04-16-2024 13:09-0500 Body mass index (BMI) [Ratio] 27.96 kg/m2 Chuck Mikulski PA-C Work Phone: [facility] 04-16-2024 13:09-0500 Body weight 67.13 kg Chuck Mikulski PA-C Work Phone: [facility] 04-16-2024 13:09-0500 Respiratory rate 20 /min Chuck Mikulski PA-C Work Phone: [facility] 04-11-2024 14:12-0500 Diastolic blood pressure 60 mm[Hg] Betty Bueno MD Work Phone: [facility] 04-11-2024 14:12-0500 Systolic blood pressure 144 mm[Hg] Betty Bueno MD Work Phone: [facility] 04-11-2024 13:24-0500 Body height 154.9 cm Betty Bueno MD Work Phone: [facility] 04-11-2024 13:24-0500 Body mass index (BMI) [Ratio] 27.96 kg/m2 Betty Bueno MD Work Phone: [facility] 04-11-2024 13:24-0500 Body temperature 96.8 [degF] Betty Bueno MD Work Phone: [facility] 04-11-2024 13:24-0500 Body weight 67.13 kg Betty Bueno MD Work Phone: [facility] 04-11-2024 13:24-0500 Heart rate 63 /min Betty Bueno MD Work Phone: [facility] 03-05-2024 13:39-0500 Heart rate 59 /min Ashley Lonnie DESK CLERK.MULTIPLE SLIDE OPERATOR Work Phone: [facility] 03-05-2024 13:39-0500 Respiratory rate 16 /min Ashley Lonnie DESK CLERK.MULTIPLE SLIDE OPERATOR Work Phone: [facility] 03-05-2024 13:39-0500 SaO2% (BldA) [Mass fraction] 99 % Ashley Fleming DESK CLERK.MULTIPLE SLIDE OPERATOR Work Phone: [facility] 01-02-2024 13:53-0400 Body height 154.9 cm Betty Bueno MD Work Phone: [facility] 01-02-2024 13:53-0400 Body mass index (BMI) [Ratio] 28.12 kg/m2 Betty Bueno MD Work Phone: [facility] 01-02-2024 13:53-0400 Body temperature 97.11 [degF] Betty Bueno MD Work Phone: [facility] 01-02-2024 13:53-0400 Body weight 67.5 kg Betty Bueno MD Work Phone: [facility] 01-02-2024 13:53-0400 Diastolic blood pressure 68 mm[Hg] Betty Bueon MD Work Phone: [facility] 01-02-2024 13:53-0400 Heart rate 59 /min Betty Bueno MD Work Phone: [facility] 01-02-2024 13:53-0400 Systolic blood pressure 116 mm[Hg] Betty Bueno MD Work Phone: [facility] 01-02-2024 11:28-0400 Heart rate 56 /min Ashley Dapoz DESK CLERK.MULTIPLE SLIDE OPERATOR Work Phone: [facility] 01-02-2024 11:28-0400 Respiratory rate 16 /min Ashley Dapoz DESK CLERK.MULTIPLE SLIDE OPERATOR Work Phone: [facility] 01-02-2024 11:28-0400 SaO2% (BldA) [Mass fraction] 99 % Ashley Dapoz DESK CLERK.MULTIPLE SLIDE OPERATOR Work Phone: [facility] 11-27-2023 17:15-0400 Body height 154.9 cm Ashley Dapoz DESK CLERK.MULTIPLE SLIDE OPERATOR Work Phone: [facility] 11-27-2023 17:15-0400 Body mass index (BMI) [Ratio] 28.72 kg/m2 Ashley Dapoz DESK CLERK.MULTIPLE SLIDE OPERATOR Work Phone: [facility] 11-27-2023 17:15-0400 Body weight 68.95 kg Ashley Dapoz DESK CLERK.MULTIPLE SLIDE OPERATOR Work Phone: [facility] 11-16-2023 10:17-0400 Diastolic blood pressure 74 mm[Hg] Bekah Cintron MD Work Phone: [facility] 11-16-2023 10:17-0400 Heart rate 54 /min Bekah Cintron MD Work Phone: [facility] 11-16-2023 10:17-0400 Respiratory rate 14 /min Bekah Cintron MD Work Phone: [facility] 11-16-2023 10:17-0400 SaO2% (BldA) [Mass fraction] 97 % Bekah Cintron MD Work Phone: [facility] 11-16-2023 10:17-0400 Systolic blood pressure 139 mm[Hg] Bekah Cintron MD Work Phone: [facility] 10-24-2023 14:59-0400 Body height 154.9 cm Betty Bueno MD Work Phone: [facility] 10-24-2023 14:59-0400 Body mass index (BMI) [Ratio] 28.72 kg/m2 Betty Bueno MD Work Phone: [facility] 10-24-2023 14:59-0400 Body temperature 97.2 [degF] Betty Bueno MD Work Phone: [facility] 10-24-2023 14:59-0400 Body weight 68.95 kg Betty Bueno MD Work Phone: [facility] 10-24-2023 14:59-0400 Diastolic blood pressure 60 mm[Hg] Betty Bueno MD Work Phone: [facility] 10-24-2023 14:59-0400 Heart rate 59 /min Betty Bueno MD Work Phone: [facility] 10-24-2023 14:59-0400 Systolic blood pressure 127 mm[Hg] Betty Bueno MD Work Phone: [facility] 10-10-2023 14:31-0400 Heart rate 82 /min Ashley Dapoz DESK CLERK.MULTIPLE SLIDE OPERATOR Work Phone: [facility] 10-10-2023 14:31-0400 Respiratory rate 16 /min Ashley Dapoz DESK CLERK.MULTIPLE SLIDE OPERATOR Work Phone: [facility] 10-10-2023 14:31-0400 SaO2% (BldA) [Mass fraction] 99 % Ashley Dapoz DESK CLERK.MULTIPLE SLIDE OPERATOR Work Phone: [facility] 07-18-2023 14:31-0400 Heart rate 63 /min Ashley Dapoz DESK CLERK.MULTIPLE SLIDE OPERATOR Work Phone: [facility] 07-18-2023 14:31-0400 Respiratory rate 18 /min Ashley Dapoz DESK CLERK.MULTIPLE SLIDE OPERATOR Work Phone: [facility] 07-18-2023 14:31-0400 SaO2% (BldA) [Mass fraction] 100 % Ashley Dapoz DESK CLERK.MULTIPLE SLIDE OPERATOR Work Phone: [facility] 07-13-2023 14:40-0400 Diastolic blood pressure 60 mm[Hg] Betty Bueno MD Work Phone: [facility] 07-13-2023 14:40-0400 Systolic blood pressure 126 mm[Hg] Betty Bueno MD Work Phone: [facility] 07-13-2023 13:18-0400 Body height 154.9 cm Betty Bueno MD Work Phone: [facility] 07-13-2023 13:18-0400 Body temperature 97.2 [degF] Betty Bueno MD Work Phone: [facility] 07-13-2023 13:18-0400 Body weight 68.49 kg Betty Bueno MD Work Phone: [facility] 05-30-2023 14:44-0500 Body height 154.9 cm Betty Bueno MD Work Phone: [facility] 05-30-2023 14:44-0500 Body temperature 97.81 [degF] Betty Bueno MD Work Phone: [facility] 05-30-2023 14:44-0500 Body weight 69.85 kg Betty Bueno MD Work Phone: [facility] 05-30-2023 14:44-0500 Diastolic blood pressure 69 mm[Hg] Betty Bueno MD Work Phone: [facility] 05-30-2023 14:44-0500 Systolic blood pressure 120 mm[Hg] Betty Bueno MD Work Phone: [facility] 04-04-2023 14:42-0500 Heart rate 63 /min Ashley Fleming APRN.MULTIPLE SLIDE OPERATOR Work Phone: [facility] 04-04-2023 14:42-0500 Respiratory rate 20 /min Ashley Fleming APRN.MULTIPLE SLIDE OPERATOR Work Phone: [facility] 04-04-2023 14:42-0500 SaO2% (BldA) [Mass fraction] 98 % Ashley Fleming APRN.MULTIPLE SLIDE OPERATOR Work Phone: [facility] 01-17-2023 14:35-0400 Diastolic blood pressure 73 mm[Hg] Bekah Cintron MD Work Phone: [facility] 01-17-2023 14:35-0400 Heart rate 61 /min Bekah Cintron MD Work Phone: [facility] 01-17-2023 14:35-0400 Respiratory rate 18 /min Bekah Cintron MD Work Phone: [facility] 01-17-2023 14:35-0400 SaO2% (BldA) [Mass fraction] 98 % Bekah Cintron MD Work Phone: [facility] 01-17-2023 14:35-0400 Systolic blood pressure 124 mm[Hg] Bekah Cintron MD Work Phone: [facility] 11-30-2022 09:47-0400 Body height 154.9 cm Deborah Fey DESK CLERK.MULTIPLE SLIDE OPERATOR Work Phone: [facility] 11-30-2022 09:47-0400 Body temperature 98.1 [degF] Deborah Fey DESK CLERK.MULTIPLE SLIDE OPERATOR Work Phone: [facility] 11-30-2022 09:47-0400 Body weight 68.77 kg Deborah Fey DESK CLERK.MULTIPLE SLIDE OPERATOR Work Phone: [facility] 11-30-2022 09:47-0400 Diastolic blood pressure 55 mm[Hg] Deborah Fey DESK CLERK.MULTIPLE SLIDE OPERATOR Work Phone: [facility] 11-30-2022 09:47-0400 Heart rate 75 /min Deborah Fey DESK CLERK.MULTIPLE SLIDE OPERATOR Work Phone: [facility] 11-30-2022 09:47-0400 Respiratory rate 16 /min Deborah Fey DESK CLERK.MULTIPLE SLIDE OPERATOR Work Phone: [facility] 11-30-2022 09:47-0400 SaO2% (BldA) [Mass fraction] 100 % Deborah Fey DESK CLERK.MULTIPLE SLIDE OPERATOR Work Phone: [facility] 11-30-2022 09:47-0400 Systolic blood pressure 124 mm[Hg] Deborah Tena DESK CLERK.MULTIPLE SLIDE OPERATOR Work Phone: [facility] 11-19-2022 11:06-0400 Diastolic blood pressure 78 mm[Hg] Betty Bueno MD Work Phone: [facility] 11-19-2022 11:06-0400 Systolic blood pressure 150 mm[Hg] Betty Bueno MD Work Phone: [facility] 11-19-2022 10:08-0400 Body height 152.4 cm Betty Bueno MD Work Phone: [facility] 11-19-2022 10:08-0400 Body temperature 97 [degF] Betty Bueno MD Work Phone: [facility] 11-19-2022 10:08-0400 Body weight 69.4 kg Betty Bueno MD Work Phone: [facility] [facility] 11-19-2022 10:08-0400 Heart rate 57 /min Betty Bueno MD Work Phone: [facility] 09-01-2022 14:48-0400 Body height 152.4 cm Vickie Fegatelli DESK CLERK.MULTIPLE SLIDE OPERATOR Work Phone: [facility] 09-01-2022 14:48-0400 Body weight 69.6 kg Vickie Fegatelli DESK CLERK.MULTIPLE SLIDE OPERATOR Work Phone: [facility] 09-01-2022 14:48-0400 Diastolic blood pressure 83 mm[Hg] Vickie Fegatelli DESK CLERK.MULTIPLE SLIDE OPERATOR Work Phone: [facility] 09-01-2022 14:48-0400 Heart rate 74 /min Vickie Fegatelli DESK CLERK.MULTIPLE SLIDE OPERATOR Work Phone: [facility] 09-01-2022 14:48-0400 Respiratory rate 16 /min Vickie Fegatelli DESK CLERK.MULTIPLE SLIDE OPERATOR Work Phone: [facility] 09-01-2022 14:48-0400 Systolic blood pressure 160 mm[Hg] Vickie Fegatelli DESK CLERK.MULTIPLE SLIDE OPERATOR Work Phone: [facility] 08-13-2022 11:15-0400 Body height 152.4 cm Vickie Fegatelli DESK CLERK.MULTIPLE SLIDE OPERATOR Work Phone: [facility] 08-13-2022 11:15-0400 Body weight 69.9 kg Vickie Fegatelli DESK CLERK.MULTIPLE SLIDE OPERATOR Work Phone: [facility] 08-13-2022 11:15-0400 Diastolic blood pressure 74 mm[Hg] Vickie Fegatelli DESK CLERK.MULTIPLE SLIDE OPERATOR Work Phone: [facility] 08-13-2022 11:15-0400 Heart rate 60 /min Vickie Fegatelli DESK CLERK.MULTIPLE SLIDE OPERATOR Work Phone: [facility] 08-13-2022 11:15-0400 SaO2% (BldA) [Mass fraction] 100 % Vickie Fegatelli DESK CLERK.MULTIPLE SLIDE OPERATOR Work Phone: [facility] 08-13-2022 11:15-0400 Systolic blood pressure 167 mm[Hg] Vickie Fegatelli DESK CLERK.MULTIPLE SLIDE OPERATOR Work Phone: [facility] 07-26-2022 15:05-0400 Body height 152.4 cm Betty Bueno MD Work Phone: [facility] 07-26-2022 15:05-0400 Body temperature 97.9 [degF] Betty Bueno MD Work Phone: [facility] 07-26-2022 15:05-0400 Body weight 69.85 kg Betty Bueno MD Work Phone: [facility] 07-26-2022 15:05-0400 Diastolic blood pressure 75 mm[Hg] Betty Bueno MD Work Phone: [facility] 07-26-2022 15:05-0400 Systolic blood pressure 136 mm[Hg] Betty Bueno MD Work Phone: [facility] 07-09-2022 11:34-0400 Heart rate 66 /min Bekah Cintron MD Work Phone: [facility] 07-09-2022 11:34-0400 Respiratory rate 16 /min Bekah Cintron MD Work Phone: [facility] 07-09-2022 11:34-0400 SaO2% (BldA) [Mass fraction] 95 % Bekha Cintron MD Work Phone: [facility] 05-10-2022 09:22-0500 Heart rate 55 /min Ashley Dapoz DESK CLERK.MULTIPLE SLIDE OPERATOR Work Phone: [facility] 05-10-2022 09:22-0500 Respiratory rate 16 /min Ashley Dapoz DESK CLERK.MULTIPLE SLIDE OPERATOR Work Phone: [facility] 05-10-2022 09:22-0500 SaO2% (BldA) [Mass fraction] 99 % Ashley Dapoz DESK CLERK.MULTIPLE SLIDE OPERATOR Work Phone: [facility] 05-03-2022 15:19-0500 Body height 152.4 cm Betty Bueno MD Work Phone: [facility] 05-03-2022 15:19-0500 Body temperature 96.69 [degF] Betty Bueno MD Work Phone: [facility] 05-03-2022 15:19-0500 Body weight 70.76 kg Betty Bueno MD Work Phone: [facility] 05-03-2022 15:19-0500 Diastolic blood pressure 67 mm[Hg] Betty Bueno MD Work Phone: [facility] 05-03-2022 15:19-0500 Heart rate 85 /min Betty Bueno MD Work Phone: [facility] 05-03-2022 15:19-0500 Systolic blood pressure 121 mm[Hg] Betty Bueno MD Work Phone: [facility] 03-12-2022 13:16-0500 Heart rate 88 /min Bekah Cintron MD Work Phone: [facility] 03-12-2022 13:16-0500 Respiratory rate 16 /min Bekah Cintron MD Work Phone: [facility] 03-12-2022 13:16-0500 SaO2% (BldA) [Mass fraction] 99 % Bekah Cintron MD Work Phone: [facility] 02-16-2022 15:03-0400 Body height 152.4 cm Karen Rivas MD Work Phone: [facility] 02-16-2022 15:03-0400 Body weight 71.4 kg Karen Rivas MD Work Phone: [facility] 02-16-2022 15:03-0400 Diastolic blood pressure 62 mm[Hg] Karen Rivas MD Work Phone: [facility] 02-16-2022 15:03-0400 Heart rate 97 /min Karen Rivas MD Work Phone: [facility] 02-16-2022 15:03-0400 SaO2% (BldA) [Mass fraction] 97 % Karen Rivas MD Work Phone: [facility] 02-16-2022 15:03-0400 Systolic blood pressure 134 mm[Hg] Karen Rivas MD Work Phone: [facility] 01-05-2022 11:07-0400 Heart rate 67 /min Nicole Thole PA-C Work Phone: [facility] 01-05-2022 11:07-0400 Respiratory rate 16 /min Nicole Thole PA-C Work Phone: [facility] 01-05-2022 11:07-0400 SaO2% (BldA) [Mass fraction] 97 % Nicole Thole PA-C Work Phone: [facility] 11-26-2021 11:46-0400 Diastolic blood pressure 77 mm[Hg] Bekah Cintron MD Work Phone: [facility] 11-26-2021 11:46-0400 Heart rate 64 /min Bekah Cintron MD Work Phone: [facility] 11-26-2021 11:46-0400 Respiratory rate 16 /min Bekah Cintron MD Work Phone: [facility] 11-26-2021 11:46-0400 SaO2% (BldA) [Mass fraction] 99 % Bekah Cintron MD Work Phone: [facility] 11-26-2021 11:46-0400 Systolic blood pressure 177 mm[Hg] Bekah Cintron MD Work Phone: [facility] 11-04-2021 15:30-0400 Heart rate 67 /min Nicole Thole PA-C Work Phone: [facility] 11-04-2021 15:30-0400 Respiratory rate 16 /min Nicole Thole PA-C Work Phone: [facility] 11-04-2021 15:30-0400 SaO2% (BldA) [Mass fraction] 97 % Nicole Thole PA-C Work Phone: [facility] 10-23-2021 14:41-0400 Body temperature 97.2 [degF] Tanner Cacchione DO Work Phone: [facility] 10-23-2021 14:41-0400 Body weight 67.95 kg Tanner Cacchione DO Work Phone: [facility] 10-23-2021 14:41-0400 Diastolic blood pressure 61 mm[Hg] Tanner Cacchione DO Work Phone: [facility] 10-23-2021 14:41-0400 Heart rate 58 /min Tanner Cacchione DO Work Phone: [facility] 10-23-2021 14:41-0400 Respiratory rate 18 /min Tanner Cacchione DO Work Phone: [facility] 10-23-2021 14:41-0400 SaO2% (BldA) [Mass fraction] 100 % Tanner Cacchione DO Work Phone: [facility] 10-23-2021 14:41-0400 Systolic blood pressure 138 mm[Hg] Tanner Cacchione DO Work Phone: [facility] 10-08-2021 14:52-0400 Body height 152.4 cm Priscilla Telles MD Work Phone: [facility] 10-08-2021 14:52-0400 Body weight 68.95 kg Priscilla Telles MD Work Phone: [facility] 10-08-2021 14:52-0400 Respiratory rate 21 /min Priscilla Telles MD Work Phone: [facility] 09-25-2021 09:31-0400 Body height 152.4 cm Betty Bueno MD Work Phone: [facility] 09-25-2021 09:31-0400 Body temperature 97.5 [degF] Betty Bueno MD Work Phone: [facility] 09-25-2021 09:31-0400 Body weight 68.95 kg Betty Bueno MD Work Phone: [facility] 09-25-2021 09:31-0400 Diastolic blood pressure 61 mm[Hg] Betty Bueno MD Work Phone: [facility] 09-25-2021 09:31-0400 Heart rate 67 /min Betty Bueno MD Work Phone: [facility] 09-25-2021 09:31-0400 Systolic blood pressure 140 mm[Hg] Betty Bueno MD Work Phone: [facility] 09-11-2021 13:37-0400 Heart rate 55 /min Bekah Cintron MD Work Phone: [facility] 09-11-2021 13:37-0400 Respiratory rate 14 /min Bekah Cintron MD Work Phone: [facility] 09-11-2021 13:37-0400 SaO2% (BldA) [Mass fraction] 99 % Bekah Cintron MD Work Phone: [facility] 09-10-2021 15:11-0400 Body height 152.4 cm Priscilla Telles MD Work Phone: [facility] 09-10-2021 15:11-0400 Body weight 68.95 kg Priscilla Telles MD Work Phone: [facility] 09-10-2021 15:11-0400 Respiratory rate 18 /min Priscilla Telles MD Work Phone: [facility] 08-28-2021 08:11-0400 Body height 152.4 cm Betty Bueno MD Work Phone: [facility] 08-28-2021 08:11-0400 Body temperature 97.5 [degF] Betty Bueno MD Work Phone: [facility] 08-28-2021 08:11-0400 Diastolic blood pressure 70 mm[Hg] Betty Bueno MD Work Phone: [facility] 08-28-2021 08:11-0400 Heart rate 63 /min Betty Bueno MD Work Phone: [facility] 08-28-2021 08:11-0400 Respiratory rate 16 /min Betty Bueno MD Work Phone: [facility] 08-28-2021 08:11-0400 SaO2% (BldA) [Mass fraction] 100 % Betty Bueno MD Work Phone: [facility] 08-28-2021 08:11-0400 Systolic blood pressure 155 mm[Hg] Betty Bueno MD Work Phone: [facility] 06-26-2021 13:46-0500 Heart rate 61 /min Bekah Cintron MD Work Phone: [facility] 06-26-2021 13:46-0500 Respiratory rate 20 /min Bekah Cintron MD Work Phone: [facility] 06-26-2021 13:46-0500 SaO2% (BldA) [Mass fraction] 99 % Bekah Cintron MD Work Phone: [facility] 05-18-2021 15:40-0500 Body height 152.4 cm Betty Bueno MD Work Phone: [facility] 05-18-2021 15:40-0500 Body temperature 97.59 [degF] Betty Bueno MD Work Phone: [facility] 05-18-2021 15:40-0500 Body weight 68.95 kg Betty Bueno MD Work Phone: [facility] 05-18-2021 15:40-0500 Diastolic blood pressure 72 mm[Hg] Betty Bueno MD Work Phone: [facility] 05-18-2021 15:40-0500 Heart rate 91 /min Betty Bueno MD Work Phone: [facility] 05-18-2021 15:40-0500 Systolic blood pressure 118 mm[Hg] Betty Bueno MD Work Phone: [facility] 04-30-2021 12:45-0500 Heart rate 65 /min Bekah Cintron MD Work Phone: [facility] 04-30-2021 12:45-0500 Respiratory rate 20 /min Bekah Cintron MD Work Phone: [facility] 04-30-2021 12:45-0500 SaO2% (BldA) [Mass fraction] 99 % Bekah Cintron MD Work Phone: [facility] 04-08-2021 09:18-0500 Body height 152.4 cm Rojelio Armenta MD Work Phone: [facility] 04-08-2021 09:18-0500 Body temperature 97.11 [degF] Rojelio Armenta MD Work Phone: [facility] 04-08-2021 09:18-0500 Body weight 68.04 kg Rojelio Armenta MD Work Phone: [facility] 04-08-2021 09:18-0500 Diastolic blood pressure 66 mm[Hg] Rojelio Armenta MD Work Phone: [facility] 04-08-2021 09:18-0500 Heart rate 78 /min Rojelio Armenta MD Work Phone: [facility] 04-08-2021 09:18-0500 Systolic blood pressure 130 mm[Hg] Rojelio Armenta MD Work Phone: [facility] 04-07-2021 11:05-0500 Diastolic blood pressure 62 mm[Hg] Kalin Mae MD Work Phone: [facility] 04-07-2021 11:05-0500 Heart rate 68 /min Kalin Mae MD Work Phone: [facility] 04-07-2021 11:05-0500 Respiratory rate 18 /min Kalin Mae MD Work Phone: [facility] 04-07-2021 11:05-0500 SaO2% (BldA) [Mass fraction] 96 % Kalin Mae MD Work Phone: [facility] 04-07-2021 11:05-0500 Systolic blood pressure 172 mm[Hg] Kalin Mae MD Work Phone: [facility] 02-13-2021 10:00-0400 Body height 152.4 cm Betty Bueno MD Work Phone: [facility] 02-13-2021 10:00-0400 Body temperature 96.91 [degF] Betty Bueno MD Work Phone: [facility] 02-13-2021 10:00-0400 Body weight 70.94 kg Betty Bueno MD Work Phone: [facility] 02-13-2021 10:00-0400 Diastolic blood pressure 60 mm[Hg] Betty Bueno MD Work Phone: [facility] 02-13-2021 10:00-0400 Heart rate 62 /min Betty Bueno MD Work Phone: [facility] 02-13-2021 10:00-0400 Systolic blood pressure 140 mm[Hg] Betty Bueno MD Work Phone: [facility] 01-30-2021 15:40-0400 Heart rate 60 /min Bekah Cintron III, MD Work Phone: [facility] 01-30-2021 15:40-0400 Respiratory rate 18 /min Bekah Cintron III, MD Work Phone: [facility] 01-30-2021 15:40-0400 SaO2% (BldA) [Mass fraction] 98 % Bekah Cintron III, MD Work Phone: [facility] 11-03-2020 13:20-0400 Body temperature 96.91 [degF] Betty Bueno MD Work Phone: [facility] 11-03-2020 13:20-0400 Body weight 69.85 kg Betty Bueno MD Work Phone: [facility] 11-03-2020 13:20-0400 Diastolic blood pressure 66 mm[Hg] Betty Bueno MD Work Phone: [facility] 11-03-2020 13:20-0400 Heart rate 81 /min Betty Bueno MD Work Phone: [facility] 11-03-2020 13:20-0400 Systolic blood pressure 142 mm[Hg] Betty Bueno MD Work Phone: [facility] 10-11-2016 14:19-0400 BMI (Body Mass Index) 26.56 kg/m2 Robert Hutton RN RN [facility] [employer] Work Phone: 10-11-2016 14:19-0400 Body Temperature 98.3 [degF] Robert Hutton RN RN [facility] [employer] Work Phone: 10-11-2016 14:19-0400 Body Temperature 98.29 [degF] Robert Hutton RN RN [facility] [employer] Work Phone: 10-11-2016 14:19-0400 BP Diastolic 80 mm[Hg] Robert Hutton RN RN [facility] [employer] Work Phone: 10-11-2016 14:19-0400 BP Systolic 132 mm[Hg] Robert Hutton RN RN [facility] [employer] Work Phone: 10-11-2016 14:190400 Height 152.4 cm Robert Hutton RN RN [facility] Work Phone: 10-11-2016 14:19-0400 Pulse (Heart Rate) 59 /min Robert Hutton RN RN [facility] Work Phone: 10-11-2016 14:19-0400 Pulse Oximetry 96 % Robert Hutton RN RN [facility] Work Phone: 10-11-2016 14:19-0400 Respiratory Rate 16 /min Robert Hutton RN RN [facility] Work Phone: 10-11-2016 14:0400 Weight 61.69 kg Robert Hutton RN RN [facility] Work Phone: 06-17-2015 12:57-0500 BSA (Body Surface Area) 1.64 m2 Robert Hutton RN RN [facility] Work Phone: Encounters Encounter Date Encounter Type Care Provider Facility Start: 02-19-2025 End: 02-19-2025 ambulatory NKOSI XIMENA Facility:[facility] Start: 02-12-2025 End: 02-12-2025 ambulatory NKOSI XIMENA Facility:[facility] Start: 02-05-2025 End: 02-05-2025 ambulatory NKOSI XIMENA Facility:[facility] Start: 01-29-2025 End: 01-29-2025 ambulatory NKOSI XIMENA Facility:[facility] Start: 01-23-2025 End: 01-23-2025 ambulatory YANNA FELIZ Facility:[facility] Start: 01-09-2025 End: 01-09-2025 Telephone encounter Arvind Haider DO Work Phone: [facility] Start: 01-09-2025 End: 01-09-2025 ambulatory NKOSI XIMENA Facility:[facility] Start: 01-08-2025 End: 01-08-2025 Telephone encounter Arvind Haider DO Work Phone: [facility] Comment on above: Injection (Hyaluroni c Acid) Start: 01-07-2025 End: 01-07-2025 ambulatory BETTY BUENO Facility:[facility] Start: 01-07-2025 Patient encounter procedure BETTY DURON [facility] Start: 12-29-2024 End: 12-31-2024 Refill Betty Bueno MD Work Phone: [facility] Comment on above: Refill Request Start: 12-21-2024 End: 12-21-2024 Telephone encounter Bo Valverde MD, PhD Work Phone: [facility] [place] Comment on above: Patient Update (Post -procedure courtesy call) Start: 12-19-2024 End: 12-19-2024 Patient encounter procedure Bo Valverde MD, PhD Work Phone: [facility] [place] Start: 12-19-2024 End: 12-19-2024 ambulatory Bo Valverde MD, PhD Work Phone: [facility] [place] Comment on above: Procedure (iah); Hip Pain (left) Start: 12-17-2024 ambulatory BETTY BUENO Facility:[facility] Start: 12-17-2024 End: 12-17-2024 Subsequent hospital visit by physician M[facility] (I-Stat/Lg Bore/1.5t) Work Phone: [facility] Comment on above: 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] Start: 12-04-2024 End: 12-05-2024 Refill Betty Bueno MD Work Phone: [facility] Comment on above: Refill Request Start: 12-03-2024 End: 12-04-2024 Refill Betty Beuno MD Work Phone: [facility] Comment on above: Refill Request Start: 11-20-2024 End: 11-20-2024 Telephone encounter Betty Bueno MD Work Phone: [facility] Comment on above: Medication Request Start: 11-20-2024 End: 11-20-2024 Patient encounter procedure Yanna Feliz RD Work Phone: [facility] Comment on above: Type 2 diabetes shelby itus 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) Start: 11-20-2024 End: 11-20-2024 Telemedicine consultation with patient Yanna Feliz RD Work Phone: [facility] Start: 11-20-2024 End: 11-20-2024 ambulatory YANNA M FELIZ Facility:[facility] Start: 11-19-2024 End: 11-19-2024 Patient encounter procedure [facility] [place] Comment on above: My appointment of Eulalia bradford with you Start: 11-19-2024 End: 11-19-2024 Office outpatient visit 10 minutes Arvind Haider DO Work Phone: [facility] Comment on above: Chronic pain of righ t knee (Primary Dx); Synovial cyst of right popliteal space; Primary osteoarthritis of right knee; 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 Start: 11-19-2024 End: 11-19-2024 ambulatory [facility] [place] Start: 11-15-2024 End: 11-15-2024 Orders Only Betty Bueno MD Work Phone: [facility] Comment on above: Ophthalmoplegia (Radha francis Dx) Start: 11-12-2024 End: 11-12-2024 Subsequent hospital visit by physician Juany Conley [facility] Comment on above: Pain in left hip [M2 5.552] Start: 11-12-2024 End: 11-12-2024 ambulatory BETTY BUENO Facility:[facility] Start: 11-12-2024 End: 11-12-2024 Patient encounter procedure Marcial Brooks APRN.CNP Work Phone: [facility] [place] Comment on above: 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 (Primary Dx); Post laminectomy syndrome; Lumbar spondylosis; Pain in left hip; Pain in right hip; Lumbar radiculopathy; Encounter for long-term use of opiate analgesic Start: 11-12-2024 End: 11-12-2024 Telephone encounter Marcial Brooks APRN.CNP Work Phone: [facility] [place] Start: 11-09-2024 End: 11-09-2024 Patient encounter procedure Dustin Campos OD Work Phone: Ophthalmology Comment on above: Superior oblique pal sy, left (Primary Dx); Type 2 diabetes mellitus 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); Dry eye syndrome of both eyes; Refractive error Start: 11-09-2024 End: 11-12-2024 ambulatory Arvind Haider DO Work Phone: [facility] Start: 11-09-2024 End: 11-12-2024 Follow-up encounter Arvind Haider DO Work Phone: [facility] Comment on above: Knee problem follow up Start: 10-18-2024 End: 12-31-2024 Telephone encounter Kalin Esposito MD Work Phone: [facility] [place] Comment on above: Patient Update (GTB) Start: 10-15-2024 End: 10-15-2024 Patient encounter procedure Kalin Esposito MD Work Phone: [facility] [place] Start: 10-15-2024 End: 10-15-2024 ambulatory Kalin Esposito MD Work Phone: [facility] [place] Comment on above: Injections (GTB) Start: 10-12-2024 End: 12-12-2024 Follow-up encounter Betty Bueno MD Work Phone: [facility] Start: 10-12-2024 End: 10-12-2024 Patient encounter procedure Betty Bueno MD Work Phone: [facility] Comment on above: Type 2 diabetes shelby itus 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) (Primary Dx); Primary hypertension; Dyslipidemia; Type 2 diabetes mellitus with diabetic peripheral angiopathy without gangrene, without long-term current use of insulin (HCC) Start: 10-12-2024 End: 10-12-2024 ambulatory BETTY BUENO [facility] Start: 10-09-2024 End: 10-09-2024 ambulatory BETTY BUENO Facility:[facility] Start: 10-01-2024 End: 10-03-2024 Refill Betty Bueno MD Work Phone: [facility] Comment on above: Refill Request Start: 09-30-2024 End: 10-01-2024 Refill Betty Bueno MD Work Phone: [facility] Comment on above: Refill Request Start: 09-26-2024 End: 09-28-2024 Refill Betty Bueno MD Work Phone: [facility] Comment on above: Refill Request Start: 09-19-2024 End: 09-19-2024 Office outpatient visit 15 minutes Arvind Haider DO Work Phone: [facility] Comment on above: Chronic pain of righ t knee (Primary Dx); Synovial cyst of right popliteal space; Primary osteoarthritis of right knee Start: 09-19-2024 End: 09-19-2024 ambulatory BETTY BUENO Facility:[facility] Start: 09-18-2024 End: 09-18-2024 E-mail encounter from caregiver Chuck Escobar PA-C Work Phone: [facility] Start: 09-18-2024 End: 09-18-2024 Patient encounter procedure Chuck Escobar PA-C Work Phone: [facility] Comment on above: Appointment Request Start: 09-18-2024 End: 09-19-2024 Refill Betty Bueno MD Work Phone: [facility] Comment on above: Refill Request Start: 09-18-2024 End: 09-18-2024 Telephone encounter Diana Vargas APRN.CNP Work Phone: [facility] [place] Comment on above: 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 Start: 09-04-2024 End: 09-04-2024 ambulatory BETTY BUENO Facility:[facility] Start: 09-04-2024 End: 09-04-2024 Patient encounter procedure Kalin Esposito MD Work Phone: [facility] [place] Comment on above: Encounter for long-t erm use of opiate analgesic (Primary Dx); Greater trochanteric bursitis, left; Post laminectomy syndrome; Lumbar radiculopathy Start: 09-04-2024 End: 09-04-2024 Telephone encounter Kalin Esposito MD Work Phone: [facility] [place] Comment on above: Injections (question s) Start: 08-31-2024 End: 08-31-2024 Refill Betty Bueno MD Work Phone: [facility] Comment on above: Refill Request Start: 08-04-2024 End: 08-06-2024 Refill Betty Bueno MD Work Phone: [facility] Comment on above: Refill Request Start: 07-24-2024 End: 07-24-2024 Telephone encounter Betty Bueno MD Work Phone: [facility] Comment on above: Orders (Blood pressu re cuff) Start: 07-22-2024 End: 07-23-2024 ambulatory Chuck Escobar PA-C Work Phone: [facility] Comment on above: Bakers Cyst Start: 07-16-2024 End: 07-16-2024 Office outpatient new 30 minutes Arvind Haider DO Work Phone: [facility] Comment on above: Chronic pain of righ t knee (Primary Dx); Synovial cyst of right popliteal space; Primary osteoarthritis of right knee Start: 07-16-2024 End: 07-16-2024 ambulatory BETTY BUENO Facility:[facility] Start: 07-13-2024 End: 07-13-2024 Telephone encounter Betty Bueno MD Work Phone: [facility] Comment on above: Orders (BP cuff) Start: 07-11-2024 End: 07-11-2024 Patient encounter procedure Betty Bueno MD Work Phone: [facility] Comment on above: Type 2 diabetes shelby itus 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) (Primary Dx); Primary hypertension; Synovial cyst of right popliteal space; Chronic pain of right knee; Mixed hyperlipidemia Start: 07-11-2024 End: 07-11-2024 ambulatory BETTY BUENO Facility:[facility] Start: 07-06-2024 End: 07-06-2024 Refill Betty Bueno MD Work Phone: [facility] Comment on above: Refill Request Start: 07-04-2024 End: 07-04-2024 ambulatory BETTY BUENO [facility] Start: 06-27-2024 End: 06-28-2024 Refill Betty Bueno MD Work Phone: [facility] Comment on above: Refill Request Start: 06-25-2024 End: 06-25-2024 Patient encounter procedure Ashley Fleming APRN.CNP Work Phone: [facility] Comment on above: Lumbar radiculopathy (Primary Dx); Post laminectomy syndrome Start: 06-25-2024 End: 06-25-2024 ambulatory BETTY BUENO Facility:[facility] Start: 06-24-2024 End: 06-25-2024 Refill Betty Bueno MD Work Phone: [facility] Comment on above: Refill Request Start: 06-21-2024 End: 06-21-2024 Refill Betty Bueno MD Work Phone: [facility] Comment on above: Refill Request Start: 06-11-2024 End: 06-11-2024 Patient encounter procedure Kalin Esposito MD Work Phone: [facility] Start: 06-11-2024 End: 06-11-2024 ambulatory Kalin Esposito MD Work Phone: [facility] Comment on above: Procedure (tfesi); B ack Pain (Lower - bilateral - right is worse) Start: 06-06-2024 End: 06-08-2024 Refill Betty Bueno MD Work Phone: [facility] Comment on above: Refill Request Start: 06-04-2024 End: 06-04-2024 Patient encounter procedure Ashley Fleming MULTIPLE SLIDE OPERATOR Work Phone: [facility] Comment on above: Encounter for long-t erm use of opiate analgesic (Primary Dx); Post laminectomy syndrome; Lumbar radiculopathy Start: 06-04-2024 End: 06-04-2024 ambulatory BETTY BUENO Facility:[facility] Start: 05-28-2024 End: 05-29-2024 Refill Betty Bueno MD Work Phone: [facility] Comment on above: Refill Request Start: 05-09-2024 End: 05-09-2024 Telephone encounter Kalin Esposito MD Work Phone: [facility] Comment on above: injection questions Start: 05-08-2024 End: 05-08-2024 ambulatory Kalin Esposito MD Work Phone: [facility] Comment on above: Completion of predni sone Start: 05-07-2024 End: 05-30-2024 ambulatory Betty Bueno MD Work Phone: [facility] Start: 05-07-2024 End: 05-30-2024 Patient encounter procedure Betty Bueno MD Work Phone: [facility] Comment on above: Requested blood pres sure results Start: 05-04-2024 End: 05-07-2024 Refill Betty Bueno MD Work Phone: [facility] Comment on above: Refill Request Start: 05-04-2024 End: 05-04-2024 Office outpatient new 45 minutes Charan Dukes DO Work Phone: [facility] Comment on above: Subjective memory co mplaints (Primary Dx); Encounter for geriatric assessment Start: 05-04-2024 End: 05-04-2024 Patient encounter status Charan Dukes DO Work Phone: [facility] Start: 05-04-2024 End: 05-04-2024 ambulatory BETTY BUENO Facility:[facility] Start: 05-04-2024 Encounter for other specified special examinations CHARAN DUKES [facility] Start: 04-27-2024 End: 04-27-2024 Patient encounter procedure Kalin Esposito MD Work Phone: [facility] Comment on above: Lumbar radiculopathy (Primary Dx); Post laminectomy syndrome; Encounter for long-term use of opiate analgesic Start: 04-27-2024 End: 04-27-2024 ambulatory BETTY BUENO Facility:[facility] Start: 04-16-2024 End: 04-16-2024 ambulatory BETTY BUENO Facility:[facility] Start: 04-16-2024 End: 04-16-2024 Patient encounter procedure Chuck Escobar PA-C Work Phone: [facility] Comment on above: 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 (Primary Dx); Arthritis of dofxjwgl-evzrinakp-vnxzurumb joint of left hand; 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 Comment on above: Left hand pain [M79. 642] Start: 03-25-2024 End: 03-26-2024 ambulatory Betty Bueno MD Work Phone: [facility] Start: 03-25-2024 End: 03-26-2024 Patient encounter procedure Betty Bueno MD Work Phone: [facility] Comment on above: Possible new med Start: 03-20-2024 End: 03-21-2024 Refill Betty Bueno MD Work Phone: [facility] Comment on above: Refill Request Start: 03-13-2024 End: 03-13-2024 Telephone encounter Betty Bueno MD Work Phone: [facility] Comment on above: Medication Problem Start: 03-12-2024 End: 03-12-2024 Refill Betty Bueno MD Work Phone: [facility] Comment on above: Refill Request Start: 03-09-2024 End: 03-09-2024 Telephone encounter Betty Bueno MD Work Phone: [facility] Comment on above: Forms ([facility]- form) Start: 03-05-2024 End: 03-06-2024 Refill Betty Bueno MD Work Phone: [facility] Comment on above: Refill Request Start: 03-05-2024 End: 03-05-2024 Patient encounter procedure Ashley Fleming APRN.MULTIPLE SLIDE OPERATOR Work Phone: [facility] Comment on above: Encounter for long-t erm use of opiate analgesic (Primary Dx); Lumbar radiculopathy; Post laminectomy syndrome Start: 03-05-2024 End: 03-05-2024 ambulatory BETTY BUENO [facility] Start: 02-17-2024 End: 02-20-2024 ambulatory Betty Bueno MD Work Phone: [facility] Start: 02-17-2024 End: 02-20-2024 Patient encounter procedure Betty Bueno MD Work Phone: [facility] Comment on above: arthritis in my hand Start: 01-27-2024 End: 01-29-2024 Refill Endy Dinh MD Work Phone: [facility] Comment on above: Refill Request Start: 01-20-2024 End: 01-20-2024 Patient encounter procedure Sherin Monroy OD Work Phone: [facility] Comment on above: Type 2 diabetes shelby itus with peripheral neuropathy (HCC) (Primary Dx); Hypertension, unspecified type; Pseudophakia; Dry eye syndrome of both eyes; Posterior vitreous detachment, bilateral; Refractive error Start: 01-02-2024 End: 01-04-2024 Patient encounter procedure Ashley Fleming APRN.MULTIPLE SLIDE OPERATOR Work Phone: [facility] Comment on above: Encounter for long-t erm use of opiate analgesic (Primary Dx); Lumbar radiculopathy; Post laminectomy syndrome Medicare annual well ness visit, subsequent (Primary Dx); Type 2 diabetes mellitus 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); Encounter for immunization; Need for influenza vaccination Start: 12-28-2023 End: 12-28-2023 Refill Betty Bueno MD Work Phone: [facility] Comment on above: Refill Request Start: 12-22-2023 End: 12-22-2023 Refill Betty Bueno MD Work Phone: [facility] Comment on above: Refill Request Start: 12-02-2023 End: 12-02-2023 ambulatory Ashley Fleming APRN.MULTIPLE SLIDE OPERATOR Work Phone: [facility] Comment on above: Lumbar radiculopathy (Primary Dx) Start: 12-02-2023 End: 12-02-2023 Telemedicine consultation with patient Ashley Fleming APRN.MULTIPLE SLIDE OPERATOR Work Phone: [facility] Start: 11-29-2023 Refill Betty Bueno MD Work Phone: [facility] Comment on above: Refill Request Start: 11-24-2023 Refill Betty Bueno MD Work Phone: [facility] Comment on above: Refill Request Start: 11-21-2023 Refill Betty Bueno MD Work Phone: [facility] Comment on above: Refill Request Start: 11-16-2023 End: 11-16-2023 ambulatory Bekah Cintron MD Work Phone: [facility] Comment on above: Injections (CAUDAL) Start: 11-16-2023 End: 11-16-2023 Patient encounter procedure Bekah Cintron MD Work Phone: [facility] Start: 11-04-2023 Refill Betty Bueno MD Work Phone: [facility] Comment on above: Refill Request Start: 10-25-2023 Telephone encounter Arvind brunner DO Work Phone: [facility] Start: 10-24-2023 End: 10-24-2023 Patient encounter procedure Betty Bueno MD Work Phone: [facility] Comment on above: Type 2 diabetes shelby itus with peripheral neuropathy (HCC) (Primary Dx); Screening for diabetic retinopathy; Primary hypertension; Depression screen; Mild persistent asthma without complication Start: 10-21-2023 Refill Betty Bueno MD Work Phone: [facility] Comment on above: Refill Request Start: 10-12-2023 Telephone encounter Ashley berger APRN.MULTIPLE SLIDE OPERATOR Work Phone: [facility] Comment on above: Medication Problem Start: 10-10-2023 End: 10-10-2023 ambulatory Winston Hernandez ENGINE HEAD REPAIRER Work Phone: [facility] Comment on above: Acute pain of right knee (Primary Dx) Start: 10-10-2023 End: 10-10-2023 Patient encounter procedure Ashley Lonnie DESK CLERK.MULTIPLE SLIDE OPERATOR Work Phone: [facility] Comment on above: Encounter for long-t erm use of opiate analgesic (Primary Dx); Post laminectomy syndrome; Anxiety due to invasive procedure Start: 10-10-2023 Refill Ashley Fleming A PRN.MULTIPLE SLIDE OPERATOR Work Phone: [facility] Comment on above: Med Change Request Start: 10-10-2023 Telephone encounter Ashley Bety berger DESK CLERK.MULTIPLE SLIDE OPERATOR Work Phone: [facility] Comment on above: Injection Question Start: 10-04-2023 Refill Betty Bueno MD Work Phone: [facility] Comment on above: Refill Request Start: 09-28-2023 Refill Betty Bueno MD Work Phone: [facility] Comment on above: Refill Request Start: 09-23-2023 Telephone encounter Betty wynne MD Work Phone: [facility] Comment on above: REFERRAL (To Orthope dics) Start: 09-21-2023 ambulatory Betty Bueno MD Work Phone: [facility] Start: 09-21-2023 Patient encounter procedure Roberto Bueno MD Work Phone: [facility] Comment on above: My moving kneecap Start: 09-14-2023 ambulatory Bekah Cintron MD Work Phone: [facility] Start: 09-14-2023 Patient encounter procedure Sly Cintron MD Work Phone: [facility] Comment on above: Next appointment Start: 09-12-2023 End: 09-12-2023 ambulatory Sandip Pappas PT Work Phone: [facility] Comment on above: Acute pain of right knee (Primary Dx) Start: 08-30-2023 End: 08-30-2023 ambulatory Panda Mcadams PT Work Phone: [facility] Comment on above: Acute pain of right knee Start: 08-29-2023 Refill Betty Bueno MD Work Phone: [facility] Comment on above: Refill Request Start: 08-21-2023 Refill Betty Bueno MD Work Phone: [facility] Comment on above: Refill Request Start: 08-10-2023 Telephone encounter Ag Orth Work Phone: [facility] Start: 08-09-2023 ambulatory Eloise Pillo [facility] Comment on above: Population Health Na vigation Outreach ([place] 2023 Medicare Wellness Appt Scheduled/) Start: 08-09-2023 Telephone encounter Betty wynne MD Work Phone: [facility] Comment on above: Initial Consult Start: 07-30-2023 ambulatory Bekah Cintron MD Work Phone: [facility] Comment on above: Dosage change Start: 07-25-2023 ambulatory Betty Bueno MD Work Phone: [facility] Comment on above: Xrays and breathing test Start: 07-19-2023 End: 07-19-2023 Refill Betty Bueno MD Work Phone: [facility] Comment on above: Refill Request Acute pain of right knee [M25.561] Start: 07-18-2023 End: 07-18-2023 Patient encounter procedure Ashley Fleming DESK CLERK.MULTIPLE SLIDE OPERATOR Work Phone: [facility] Comment on above: Pain medication agre ement signed (Primary Dx); Encounter for long-term use of opiate analgesic; Post laminectomy syndrome; Lumbar spondylosis Start: 07-18-2023 Refill Ashley Fleming A PRN.MULTIPLE SLIDE OPERATOR Work Phone: [facility] Comment on above: Med Change Request Start: 07-13-2023 End: 07-13-2023 Patient encounter procedure Betty Bueno MD Work Phone: [facility] Comment on above: Acute pain of right knee (Primary Dx) Start: 07-05-2023 Refill Betty Bueno MD Work Phone: [facility] Comment on above: Refill Request Start: 06-29-2023 End: 06-29-2023 ambulatory [facility] Comment on above: Asthma Start: 06-29-2023 End: 06-29-2023 Patient encounter procedure [facility] Start: 06-26-2023 Refill Betty Bueno MD Work Phone: [facility] Comment on above: Refill Request Start: 06-25-2023 Refill Betty Bueno MD Work Phone: [facility] Comment on above: Refill Request Start: 06-16-2023 Refill Betty Bueno MD Work Phone: [facility] Comment on above: Refill Request Start: 06-11-2023 Refill Betty Bueno MD Work Phone: [facility] Comment on above: Refill Request Start: 06-06-2023 ambulatory Betty Bueno MD Work Phone: [facility] Comment on above: Covid test Start: 06-06-2023 Refill Betty Bueno MD Work Phone: [facility] Comment on above: Refill Request Start: 05-30-2023 End: 05-30-2023 Patient encounter procedure Betty Bueno MD Work Phone: [facility] Comment on above: Type 2 diabetes shelby itus 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) (Primary Dx); Hypertension, essential; Neck pain; OAB (overactive bladder); Essential tremor; Moderate persistent asthma, uncomplicated; Trigeminal neuralgia; Sacroiliitis (HCC); Type 2 diabetes mellitus with peripheral neuropathy (HCC) Start: 04-04-2023 End: 04-04-2023 Patient encounter procedure Ashley Fleming APRN.CNP Work Phone: [facility] Comment on above: Encounter for long-t erm use of opiate analgesic (Primary Dx); Post laminectomy syndrome; Lumbar radiculopathy; Lumbar spondylosis Start: 03-22-2023 Refill Betty Bueno MD Work Phone: [facility] Comment on above: Refill Request Start: 03-18-2023 Refill Endy Degroot Work Phone: [facility] Comment on above: Refill Request Start: 02-28-2023 Refill Betty Bueno MD Work Phone: [facility] Comment on above: Refill Request Start: 02-20-2023 Refill Betty Bueno MD Work Phone: [facility] Comment on above: Refill Request Start: 02-12-2023 Refill Betty Bueno MD Work Phone: [facility] Comment on above: Refill Request Start: 02-08-2023 End: 02-08-2023 ambulatory Nicole Gillian FERNANDEZ-C Work Phone: [facility] Comment on above: Post laminectomy syn drome (Primary Dx); Lumbar radiculopathy Start: 02-08-2023 End: 02-08-2023 Telemedicine consultation with patient Nicole Gillian FERNANDEZ-C Work Phone: [facility] Start: 01-27-2023 Refill Betty Bueno MD Work Phone: [facility] Comment on above: Refill Request Start: 01-17-2023 End: 01-17-2023 ambulatory Bekah Cintron MD Work Phone: [facility] Comment on above: Procedure Start: 01-17-2023 End: 01-17-2023 Patient encounter procedure Bekah Cintron MD Work Phone: [facility] Start: 01-05-2023 Refill Aggie Polanco DO Work Phone: [facility] Comment on above: Refill Request; Refi ll Request Start: 12-22-2022 ambulatory Bekah Cintron MD Work Phone: [facility] Comment on above: Pain control Start: 12-09-2022 E-mail encounter fro m caregiver Sascha Sharath [place] Work Phone: [facility] Start: 12-09-2022 Patient encounter procedure Ma tthew Sharath [place] Work Phone: [facility] Comment on above: Request an Appointme nt Start: 12-09-2022 Refill Betty Bueno MD Work Phone: [facility] Comment on above: Refill Request Start: 12-07-2022 End: 12-07-2022 ambulatory Betty Bueno MD Work Phone: [facility] Comment on above: Trigeminal neuralgia (Primary Dx); Type 2 diabetes mellitus with peripheral neuropathy (HCC); Primary hypertension Start: 12-07-2022 End: 12-07-2022 Telemedicine consultation with patient Betty Bueno MD Work Phone: [facility] Start: 12-03-2022 End: 12-03-2022 [facility] Gillian ECHEVERRIA Work Phone: [facility] Comment on above: Trigeminal nerve dis order (Primary Dx); Post laminectomy syndrome; Lumbar radiculopathy; Lumbar spondylosis; Encounter for long-term use of opiate analgesic; Sacroiliitis (HCC); Cervical stenosis of spinal canal; Cervical spondylosis without myelopathy Start: 11-30-2022 End: 11-30-2022 Office outpatient visit 25 minutes Deborah Tena APRN.CNP Work Phone: [facility] Comment on above: Trigeminal neuralgia (Primary Dx) Start: 11-29-2022 ambulatory Bekah Cintron MD Work Phone: [facility] Comment on above: My ER visit yesterda y Start: 11-26-2022 Telephone encounter Bekah Cintron MD Work Phone: [facility] Comment on above: Injections (Question s) Start: 11-19-2022 End: 11-19-2022 Patient encounter procedure Betty Bueno MD Work Phone: [facility] Comment on above: Medicare annual well ness visit, subsequent (Primary Dx); Screening for colon cancer Start: 11-05-2022 Telephone encounter Bekah Cintron MD Work Phone: [facility] Comment on above: [employer] 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 Start: 11-05-2022 End: 11-05-2022 ambulatory Nicole French PA-C Work Phone: [facility] Comment on above: Encounter for long-t erm use of opiate analgesic (Primary Dx); Post laminectomy syndrome; Lumbar radiculopathy; Lumbar spondylosis; Sacroiliitis (HCC); Cervical stenosis of spinal canal; Cervical spondylosis without myelopathy Start: 11-05-2022 End: 11-05-2022 Telemedicine consultation with patient Nicole French PA-C Work Phone: [facility] Start: 10-14-2022 Refill Betty Bueno MD Work Phone: [facility] Comment on above: Refill Request Start: 10-13-2022 End: 10-13-2022 Patient encounter procedure Sascha Early DC Work Phone: [facility] Comment on above: Sacroiliitis (HCC) ( Primary Dx); Lumbar radiculopathy Start: 10-08-2022 Telephone encounter Eleazar Copeland LMT [facility] Comment on above: Insurance Authorizat ion ([employer] 2022) Procedure Follow Up Start: 09-24-2022 ambulatory Betty Bueno MD Work Phone: [facility] Comment on above: Solifenacin Start: 09-21-2022 ambulatory Bekah Cintron MD Work Phone: [facility] Comment on above: My neck pain Start: 09-01-2022 End: 09-01-2022 Patient encounter procedure Vcikie Tiwari APRN.MULTIPLE SLIDE OPERATOR Work Phone: [facility] Comment on above: Spinal stenosis of c ervical region (Primary Dx) Start: 09-01-2022 Refill Betty Bueno MD Work Phone: [facility] Comment on above: Refill Request Start: 08-25-2022 End: 08-25-2022 Subsequent hospital visit by physician Mri [employer] [facility] [employer] Comment on above: 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] Start: 08-21-2022 Refill Betty Bueno MD Work Phone: [facility] Comment on above: Refill Request Start: 08-13-2022 End: 08-13-2022 Patient encounter procedure Vickie Tiwari APRN.CNP Work Phone: [facility] Comment on above: Spondylolysis of cer vical region (Primary Dx); Spinal stenosis of cervical region Start: 08-11-2022 Telephone encounter Bekah Cintron MD Work Phone: [facility] Comment on above: Procedure Follow Up Start: 08-06-2022 ambulatory Betty Bueno MD Work Phone: [facility] Comment on above: Neck x-rays Start: 07-26-2022 End: 07-26-2022 Patient encounter procedure Betty Bueno MD Work Phone: [facility] Comment on above: Type 2 diabetes shelby itus with peripheral neuropathy (HCC) (Primary Dx); Need for shingles vaccine; Neck pain; Eczema of both external ears; Dysuria Start: 07-12-2022 End: 07-12-2022 Telemedicine consultation with patient Betty Bueno MD Work Phone: [facility] Start: 07-12-2022 End: 07-12-2022 ambulatory Betty Bueno MD Work Phone: [facility] Comment on above: Covid COVID-19 (Primary Dx ) Start: 07-09-2022 End: 07-09-2022 Patient encounter procedure Bekah Cintron MD Work Phone: [facility] Comment on above: Post laminectomy syn drome (Primary Dx); Lumbar radiculopathy; Encounter for long-term use of opiate analgesic; Sacroiliitis (HCC); Lumbar spondylosis Start: 06-24-2022 ambulatory Betty Bueno MD Work Phone: [facility] Comment on above: Myrbetriq Start: 06-16-2022 Refill Betty Bueno MD Work Phone: [facility] Comment on above: Refill Request Start: 05-18-2022 End: 05-18-2022 ambulatory Anjel Nguyen MD Work Phone: [facility] Comment on above: Type 2 diabetes shelby itus 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) (Primary Dx); OAB (overactive bladder); Primary hypertension Start: 05-18-2022 End: 05-18-2022 Telemedicine consultation with patient Anjel Nguyen MD Work Phone: [facility] Start: 05-10-2022 End: 05-10-2022 Patient encounter procedure Ashley Fleming APRN.CNP Work Phone: [facility] Comment on above: Post laminectomy syn drome (Primary Dx); Lumbar radiculopathy; Sacroiliitis (HCC); Encounter for long-term use of opiate analgesic; Lumbar spondylosis Start: 05-03-2022 End: 05-03-2022 Patient encounter procedure Betty Bueno MD Work Phone: [facility] Comment on above: Type 2 diabetes shelby itus with peripheral neuropathy (HCC) (Primary Dx); Mixed incontinence; Hypertension, unspecified type; Mild intermittent asthma without complication Start: 05-03-2022 Telephone encounter Betty wynne MD Work Phone: [facility] Comment on above: Appointment Start: 04-26-2022 Refill Betty Bueno MD Work Phone: [facility] Comment on above: Refill Request Start: 04-21-2022 ambulatory Bekah Cintron MD Work Phone: [facility] Comment on above: [employer] calling Start: 03-23-2022 ambulatory Bekah Cintron MD Work Phone: [facility] Comment on above: Previous message reg arding Gabapentin Start: 03-22-2022 Refill Nicole Gomezole P A-C Work Phone: [facility] Comment on above: Refill Request Start: 03-16-2022 ambulatory Betty Bueno MD Work Phone: [facility] Comment on above: Received message reg arding past due lab work Start: 03-12-2022 End: 03-12-2022 Patient encounter procedure Bekah Cintron MD Work Phone: [facility] Comment on above: Post laminectomy syn drome (Primary Dx); Lumbar radiculopathy; Lumbar spondylosis; Sacroiliitis (HCC); Encounter for long-term use of opiate analgesic Start: 03-03-2022 Refill Nicole Thole P A-C Work Phone: [facility] Comment on above: Refill Request Start: 03-01-2022 Refill Nicole Gomezole P A-C Work Phone: [facility] Comment on above: Refill Request Start: 02-19-2022 Refill Betty Bueno MD Work Phone: [facility] Comment on above: Refill Request Start: 02-16-2022 End: 02-16-2022 Patient encounter procedure Karen Rivas MD Work Phone: [facility] Comment on above: Functional tremor (P rimary Dx) Start: 02-12-2022 End: 02-12-2022 ambulatory Nicole Thole PA-C Work Phone: [facility] Comment on above: Acute right-sided lo w back pain with right-sided sciatica (Primary Dx); Lumbar radiculopathy; Post laminectomy syndrome; Lumbar spondylosis; Sacroiliitis (HCC) Start: 02-12-2022 End: 02-12-2022 Telemedicine consultation with patient Nicole Thole PA-C Work Phone: [facility] Start: 02-09-2022 Refill Betty Bueno MD Work Phone: [facility] Comment on above: Refill Request Start: 01-13-2022 Telephone encounter Betty wynne MD Work Phone: [facility] Comment on above: Forms ([facility] - therapeutic shoes.) Start: 01-05-2022 End: 01-05-2022 Patient encounter procedure Nicole French PA-C Work Phone: [facility] Comment on above: Encounter for long-t erm use of opiate analgesic (Primary Dx); Acute right-sided low back pain with right-sided sciatica; Post laminectomy syndrome; Lumbar radiculopathy; Lumbar spondylosis; Sacroiliitis (HCC) Start: 12-25-2021 Refill Betty Bueno MD Work Phone: [facility] Comment on above: Refill Request Start: 12-11-2021 End: 12-11-2021 ambulatory Nicole French PA-C Work Phone: [facility] Comment on above: Sacroiliitis (HCC) ( Primary Dx); Post laminectomy syndrome; Lumbar radiculopathy; Lumbar spondylosis Start: 12-11-2021 End: 12-11-2021 Telemedicine consultation with patient Nicole French PA-C Work Phone: [facility] Start: 11-26-2021 End: 11-26-2021 ambulatory Bekah Cintron MD Work Phone: [facility] Comment on above: Procedure Start: 11-26-2021 End: 11-26-2021 Patient encounter procedure Bekah Cintron MD Work Phone: [facility] Start: 11-23-2021 ambulatory Betty Bueno MD Work Phone: [facility] Comment on above: Second request about blood pressure medicine Start: 11-18-2021 End: 11-18-2021 ambulatory Robert Jeong PTA Work Phone: [facility] Comment on above: Neck pain (Primary D x); Chronic left shoulder pain Start: 11-17-2021 ambulatory Betty Bueno MD Work Phone: [facility] Comment on above: Dozazosin Start: 11-11-2021 End: 11-11-2021 ambulatory Alistair Dominguez PT [facility] Comment on above: Neck pain (Primary D x); Chronic left shoulder pain Start: 11-04-2021 End: 11-04-2021 Patient encounter procedure Nicole French PA-C Work Phone: [facility] Comment on above: Sacroiliitis (HCC) ( Primary Dx); Encounter for long-term use of opiate analgesic; Post laminectomy syndrome; Lumbar radiculopathy; Lumbar spondylosis Start: 11-04-2021 Telephone encounter Nicole Marti PA-C Work Phone: [facility] Comment on above: Injections Start: 10-27-2021 End: 10-27-2021 ambulatory Betty Bueno MD Work Phone: [facility] Comment on above: Hypertension, essent ial (Primary Dx); Essential tremor Start: 10-27-2021 End: 10-27-2021 Telemedicine consultation with patient Betty Bueno MD Work Phone: [facility] Start: 10-23-2021 End: 10-23-2021 Patient encounter procedure Tanner Ghotra DO Work Phone: [facility] Comment on above: Dysuria (Primary Dx) ; Neck pain Start: 10-08-2021 End: 10-08-2021 Patient encounter procedure Priscilla Telles MD Work Phone: [facility] Comment on above: Chronic left shoulde r pain (Primary Dx); Neck pain Start: 09-29-2021 End: 09-29-2021 Subsequent hospital visit by physician Bradley Conley (1.5t) [facility] Comment on above: Chronic left shoulde r pain [M25.512, G89.29] Start: 09-25-2021 End: 09-25-2021 Patient encounter procedure Betty Bueno MD Work Phone: [facility] Comment on above: Acute right-sided lo w back pain with right-sided sciatica (Primary Dx); Preventive measure; Hypertension, essential; Involuntary movements Start: 09-24-2021 Telephone encounter Bekah Cintron MD Work Phone: [facility] Comment on above: Future Appointment Start: 09-11-2021 End: 09-11-2021 Patient encounter procedure Bekah Cintron MD Work Phone: [facility] Comment on above: Post laminectomy syn drome (Primary Dx); Lumbar radiculopathy; Sacroiliitis (HCC); Encounter for long-term use of opiate analgesic; Lumbar spondylosis Start: 09-10-2021 End: 09-10-2021 Patient encounter procedure Priscilla Telles MD Work Phone: [facility] Comment on above: Chronic left shoulde r pain Start: 09-08-2021 End: 09-08-2021 ambulatory Betty Bueno MD Work Phone: [facility] Comment on above: Hypertension, essent ial (Primary Dx); Hot flashes; Essential tremor Start: 09-08-2021 End: 09-08-2021 Telemedicine consultation with patient Betty Bueno MD Work Phone: [facility] Start: 08-28-2021 End: 08-28-2021 Patient encounter procedure Betty Bueno MD Work Phone: [facility] Comment on above: Type 2 diabetes shelby itus with peripheral neuropathy (HCC) (Primary Dx); Chronic left shoulder pain; Hot flashes; Hypertension, essential; Hyperlipidemia, mixed; Vitamin B12 deficiency; Essential tremor; Bilateral impacted cerumen Start: 08-21-2021 Refill Betty Bueno MD Work Phone: [facility] Comment on above: Refill Request Start: 08-18-2021 Refill Betty Bueno MD Work Phone: [facility] Comment on above: Refill Request Start: 08-17-2021 ambulatory Betty Bueno MD Work Phone: [facility] Comment on above: Breo Start: 07-16-2021 End: 07-16-2021 Subsequent hospital visit by physician [facility] Comment on above: Chronic bilateral pl eural effusions [J90] Start: 07-16-2021 End: 07-16-2021 Subsequent hospital visit by physician Card Lab [facility] Comment on above: Other chest pain [R0 7.89] Start: 06-28-2021 Get Medical Advice Betty duron MD Work Phone: [facility] Comment on above: Previous [facility] refills Start: 06-26-2021 End: 06-26-2021 Patient encounter procedure Bekah Cintron MD Work Phone: [facility] Comment on above: Sacroiliitis (HCC) ( Primary Dx); Post laminectomy syndrome; Lumbar radiculopathy; Lumbar spondylosis; Encounter for long-term use of opiate analgesic Start: 06-22-2021 Telephone encounter Bekah Cintron MD Work Phone: [facility] Comment on above: Medication Problem Start: 05-29-2021 Refill Rojelio vasquez MD Work Phone: [facility] Comment on above: Refill Request Start: 05-18-2021 End: 05-18-2021 Patient encounter procedure Betty Bueno MD Work Phone: [facility] Comment on above: Other chest pain (Pr imary Dx); Chronic bilateral pleural effusions; Loose stools; Type 2 diabetes mellitus with peripheral neuropathy (HCC); Hypertension, essential; Hot flashes Start: 05-06-2021 End: 05-06-2021 Subsequent hospital visit by physician [facility] Comment on above: Chest pain, unspecif ied type [R07.9] Start: 04-30-2021 End: 04-30-2021 Patient encounter procedure Bekah Cintron MD Work Phone: [facility] Comment on above: Sacroiliitis (HCC) ( Primary Dx); Lumbar radiculopathy; Post laminectomy syndrome; Lumbar spondylosis Start: 04-08-2021 End: 04-08-2021 Patient encounter procedure Rojelio Armenta MD Work Phone: [facility] Comment on above: Chest pain, unspecif ied type (Primary Dx); Dyslipidemia; Need for vaccination against Streptococcus pneumoniae using pneumococcal conjugate vaccine 7 Start: 04-07-2021 End: 04-07-2021 ambulatory Kalin Mae MD Work Phone: [facility] Comment on above: Procedure Start: 04-07-2021 End: 04-07-2021 Patient encounter procedure Kalin Mae MD Work Phone: [facility] Start: 03-09-2021 Telephone encounter Bekah Cintron MD Work Phone: [facility] Comment on above: Patient Question Start: 03-02-2021 Telephone encounter Bekah Cintron MD Work Phone: [facility] Comment on above: Opened In Error Start: 02-13-2021 End: 02-13-2021 Patient encounter procedure Betty Bueno MD Work Phone: [facility] Comment on above: Type 2 diabetes shelby itus with peripheral neuropathy (HCC) (Primary Dx); Screening for diabetic retinopathy; Fatigue, unspecified type; Dyslipidemia; Hypokalemia; Hypomagnesemia; Need for influenza vaccination; Vitamin B 12 deficiency; Hypertension, essential Start: 02-09-2021 End: 02-09-2021 Refill Betty Bueno MD Work Phone: [facility] Comment on above: Refill Request Start: 01-30-2021 End: 01-30-2021 Patient encounter procedure Bekah Cintron MD Work Phone: [facility] Comment on above: Lumbar radiculopathy (Primary Dx); Post laminectomy syndrome; Lumbar spondylosis; Sacroiliitis (HCC); Encounter for long-term use of opiate analgesic Start: 01-30-2021 End: 01-30-2021 Telephone encounter Bekah Cintron MD Work Phone: [facility] Comment on above: Injections Start: 12-22-2020 End: 12-22-2020 Telephone encounter Bekah Cintron MD Work Phone: [facility] Comment on above: Future Appointment Received Outside [facility] Start: 12-19-2020 End: 12-19-2020 ambulatory Bekah Cintron MD Work Phone: [facility] Comment on above: Lumbar radiculopathy (Primary Dx); Post laminectomy syndrome; Lumbar spondylosis Start: 12-19-2020 End: 12-19-2020 Telemedicine consultation with patient Bekah Ramiro Cintron III, MD Work Phone: [facility] Start: 12-16-2020 End: 12-16-2020 Refill Betty Bueno MD Work Phone: [facility] Comment on above: Refill Request Start: 12-01-2020 End: 12-01-2020 Telephone encounter Betty Bueno MD Work Phone: [facility] Comment on above: Patient Update Start: 11-27-2020 End: 11-27-2020 Subsequent hospital visit by physician [facility] Comment on above: Screening for osteop orosis [Z13.820] Start: 11-11-2020 End: 11-11-2020 Telephone encounter Bekah Cintron MD Work Phone: [facility] Comment on above: New Patient Start: 11-07-2020 End: 11-07-2020 Telephone encounter Ag Orth Work Phone: [facility] Comment on above: Appointment Start: 11-05-2020 End: 11-05-2020 Refill Betty Bueno MD Work Phone: [facility] Comment on above: Refill Request Start: 11-03-2020 End: 11-03-2020 Patient encounter procedure Betty Bueno MD Work Phone: [facility] Comment on above: Encounter for medica l examination to establish care (Primary Dx); Screening for osteoporosis; Asymptomatic menopause; Screening for lipid disorders; Special screening examination for viral disease; Encounter for immunization; Chronic pain syndrome; Type 2 diabetes mellitus with peripheral neuropathy (HCC); Bilateral impacted cerumen Start: 11-03-2020 End: 11-03-2020 Patient encounter status Betty Bueno MD Work Phone: [facility] Start: 09-19-2020 End: 09-19-2020 Telephone encounter Betty Bueno MD Work Phone: [facility] Comment on above: Appointment Procedures Date Procedure Procedure Detail Performing Clinician Start: 12-19-2024 Gluc bld gluc mntr d ev cleared fda spec home use [facility] Provider Start: 11-19-2024 Arthrocentesis aspir &/inj major jt/bursa w/us Arvind Forkapa DO Work Phone: Start: 11-09-2024 Computerized ophthal amalia imaging retina Dustin Campos OD Work Phone: Start: 10-15-2024 US OTHER-INJECTION ( POC) JERONIMO USE ONLY Kalin Esposito MD Work Phone: Start: 10-15-2024 Gluc bld gluc mntr d ev cleared fda spec home use Kalin Esposito MD Work Phone: Start: 10-12-2024 Hemoglobin A1c/Hemoglobin.total in Blood Betty Bueno MD Work Phone: Start: 09-19-2024 Arthrocentesis aspir &/inj major jt/bursa w/us Arvind Forkapa DO Work Phone: Start: 07-16-2024 Arthrocentesis aspir &/inj major jt/bursa w/us Arvind Forkapa DO Work Phone: Start: 07-16-2024 Radiologic examinati on knee 3 views Arvindbrenda Haider DO Work Phone: Start: 07-11-2024 Hemoglobin A1c/Hemoglobin.total in Blood Betty Bueno MD Work Phone: Start: 06-11-2024 Gluc bld gluc mntr d ev cleared fda spec home use Kalin Esposito MD Work Phone: Start: 05-04-2024 Adult depression scr eening assessment Charan Dukes DO Work Phone: Start: 04-11-2024 Hemoglobin A1c/Hemoglobin.total in Blood Betty Bueno MD Work Phone: Start: 11-16-2023 Gluc bld gluc mntr d ev cleared fda spec home use Bekah Cintron MD Work Phone: Start: 10-24-2023 Hemoglobin A1c/Hemoglobin.total in Blood Betty Bueno MD Work Phone: Start: 10-24-2023 Adult depression scr eening assessment Bekah Cintron MD Work Phone: Start: 06-29-2023 Brncdilat rspse spmt ry pre&post-brncdilat admn Betty Bueno MD Work Phone: Start: 05-30-2023 Hemoglobin A1c/Hemoglobin.total in Blood Betty Bueno MD Work Phone: Start: 01-17-2023 Gluc bld gluc mntr d ev cleared fda spec home use Bekah Cintron MD Work Phone: Start: 07-26-2022 Culture bacterial quanttative colony count urine Betty Bueno MD Work Phone: Start: 07-26-2022 Urnls dip stick/tabl et rgnt auto w/o microscopy Betty Bueno MD Work Phone: Start: 07-26-2022 Hemoglobin A1c/Hemoglobin.total in Blood Betty Bueno MD Work Phone: Start: 10-23-2021 Urnls dip stick/tabl et rgnt auto w/o microscopy Shayy Centeno MD Work Phone: Start: 09-29-2021 Mri any jt upper ext remity w/o contrast matrl Priscilla Telles MD Work Phone: Start: 08-28-2021 Hemoglobin A1c/Hemoglobin.total in Blood Betty Bueno MD Work Phone: Start: 07-16-2021 Radiologic exam ches t 2 views Betty Bueno MD Work Phone: Start: 07-16-2021 Myocardial spect mul tiple studies Betty Bueno MD Work Phone: Start: 05-06-2021 Echo tthrc r-t 2d w/wom-mode compl spec&colr d Rojelio Armenta MD Work Phone: Start: 04-08-2021 Adult depression scr eening assessment Rojelio Armenta MD Work Phone: Start: 04-07-2021 Gluc bld gluc mntr d ev cleared fda spec home use Kalin Mae MD Work Phone: Start: 02-13-2021 INFLUENZA SEASONAL QUADRIVALENT HIGH DOSE AGE 65+ Btety Bueno MD Work Phone: Start: 02-13-2021 Hemoglobin A1c/Hemoglobin.total in Blood Betty Bueno MD Work Phone: Start: 11-27-2020 Dxa bone density margarito dy 1/> sites axial skel Betty Bueno MD Work Phone: Start: 11-03-2020 Adult depression scr eening assessment Betty Bueno MD Work Phone: Start: 06-17-2015 End: 07-06-2015 HbA1c Ashely Grace DO Work Phone: Plan of Treatment Date Care Activity Detail Author Start: 07-03-2030 Urine microalbumin profile [facility] Start: 01-08-2026 End: 01-08-2026 Patient encounter procedure 01/08/2026 11:00 AM EDT Office Visit [facility] [address] [place], [place] [id number] Betty Bueno MD 1 [facility] [address] [place], [place] [id number] Medicare wellness [facility] Comment on above: Medicare wellness Start: 01-07-2026 Annual PCP Team Chronic Disease Visit Annual PCP Team Chronic Disease Visit [facility] Start: 11-09-2025 Glaucoma screening Dilated Retinal Exam [facility] Start: 11-07-2025 ADVANCE DIRECTIVE DISCUSSION ADVANCE DIRECTIVE DISCUSSION [facility] Start: 11-06-2025 LIPID SCREEN LIPID SCREEN [facility] Start: 10-12-2025 Annual PCP Team Chronic Disease Visit Annual PCP Team Chronic Disease Visit [facility] Start: 10-09-2025 Hepatitis B screening Urine Albumin:Creatinine Ratio [facility] Start: 10-09-2025 Hepatitis B surface antibody level LDL Cholesterol [facility] Start: 07-11-2025 Annual PCP Team Chronic Disease Visit Annual PCP Team Chronic Disease Visit [facility] Start: 07-11-2025 BP Controlled (<130/80) BP Controlled (<130/80) [facility] in Start: 07-11-2025 Diabetic foot examination Diabetic Foot Exam [facility] Start: 05-04-2025 Annual PCP Team Chronic Disease Visit Annual PCP Team Chronic Disease Visit [facility] Start: 05-04-2025 Anxiety Screening Anxiety Screening [facility] Start: 05-04-2025 BP Controlled (<130/80) BP Controlled (<130/80) [facility] Start: 05-04-2025 Depression Screening Depression Screening [facility] Start: 04-11-2025 Annual PCP Team Chronic Disease Visit Annual PCP Team Chronic Disease Visit [facility] Start: 03-11-2025 End: 03-11-2025 Patient encounter procedure 03/11/2025 2:30 PM EST Office Visit [facility] [address] [facility] [address] [place] [address] Ashley Fleming APRN.MULTIPLE SLIDE OPERATOR [address] [place], [place] [address] med refill [facility] Comment on above: med refill Start: 02-12-2025 End: 02-12-2025 Patient encounter procedure 02/12/2025 3:00 PM EDT Office Visit [facility] [address] [facility] [address] [place], [place] [id number] Sydnee Leavitt, DO 1 [place] [address] Follow up [facility] Comment on above: Follow up Start: 01-28-2025 End: 01-28-2025 Patient encounter procedure 01/28/2025 12:30 PM EDT Office Visit [facility] [address], [place] [address] [place] [address] [place] [address] [facility] [address], [place] [address] 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 Ok to use locked slot [facility] Comment on above: virtual follow up on 01/23 @ 12:30pm? Ok to use locked slot Start: 01-21-2025 End: 01-21-2025 Patient encounter procedure 01/21/2025 11:00 AM EDT Office Visit [facility] [address] [place] [address] Sherin Monroy, OD 1 [facility] [address] [place], [place] [id number] Return in about 1 year (around 01/19/2025) for complete/diabetic . [facility] Comment on above: Return in about 1 year (around 01/19/2025 ) for complete/diabetic . Start: 09-27-2025 Glaucoma screening Dilated Retinal Exam [facility] Start: 01-12-2025 Hemoglobin A1c measurement HbA1C [facility] Start: 01-11-2025 Hemoglobin A1c measurement HbA1C [facility] Start: 01-09-2025 End: 01-09-2025 Patient encounter procedure 01/09/2025 1:00 PM EDT Office Visit [facility] [address] [place] [address] [place] [address] Sharmila Fernandez APRN.MULTIPLE SLIDE OPERATOR [address] [place] [address] Left hip steroid injection and 2 months follow up [facility] Comment on above: Left hip steroid injection and 2 months follow up Start: 01-08-2025 Hepatitis B surface antibody level LDL Cholesterol [facility] Start: 01-07-2025 End: 01-07-2025 Patient encounter procedure 01/07/2025 2:00 PM EDT Office Visit [facility] 1 [place] [address] Betty Bueno MD 1 [facility] [address] [place] [address] Medicare Wellness [facility] Comment on above: Medicare Wellness Start: 01-01-2025 Annual PCP Team Chronic Disease Visit Annual PCP Team Chronic Disease Visit [facility] Start: 01-01-2025 BP Controlled (<130/80) BP Controlled (<130/80) 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] Start: 11-20-2024 End: 11-20-2024 Patient encounter procedure 11/20/2024 11:15 AM EDT [facility] [address] [place] [address] [facility] [address] [place] [address] Diabetes diets [facility] Therapy Comment on above: Diabetes diets Start: 11-19-2024 End: 11-19-2024 Patient encounter procedure 11/19/2024 1:15 PM EDT Office Visit [facility] [address] [place] [address] Arvind Haider DO [address] [place] [address] EST PT-- R KNEE CYST (DRAINING) [facility] Comment on above: EST PT-- R KNEE CYST (DRAINING) Start: 11-12-2024 End: 11-12-2024 Patient encounter procedure 11/12/2024 2:45 PM EDT Office Visit [facility] [address] [place] [address] Marcial Brooks, ROMEL.MULTIPLE SLIDE OPERATOR [address] [place] [address] back pain [facility] Comment on above: back pain Start: 11-01-2024 End: 11-01-2024 Patient encounter procedure 11/01/2024 10:30 AM EDT Office Visit [facility] [address] [place], [place] [id number] Ashley Fleming, DESK CLERK.MULTIPLE SLIDE OPERATOR [address] [place], [place] [id number] GTB follow up/ med refills [facility] Comment on above: GTB follow up/ med refills Start: 10-23-2024 Annual PCP Team Chronic Disease Visit Annual PCP Team Chronic Disease Visit [facility] Start: 10-23-2024 Anxiety Screening Anxiety Screening [facility] Start: 10-23-2024 BP Controlled (<130/80) BP Controlled (<130/80) [facility] Start: 10-23-2024 Depression Screening Depression Screening [facility] Start: 10-15-2024 End: 10-15-2024 ambulatory 10/15/2024 2:20 PM EDT Procedure [facility] [address] [place] [address] Kalin Esposito MD [address] [place], [place] [id number] GTB under ultrasound guidance LEFT-SIDED : diabetic, latex allergy [facility] Comment on above: GTB under ultrasound guidance LEFT-SIDED : diabetic, latex allergy Start: 10-12-2024 End: 10-12-2024 Patient encounter procedure 10/12/2024 10:40 AM EDT Office Visit [facility] 1 [place] [address] Betty Bueno MD 1 [facility] [address] [place] [address] Return in about 3 months (around 10/11/2024). [facility] Comment on above: Return in about 3 months (around 10/12/19). Start: 10-10-2024 Hemoglobin A1c measurement HbA1C [facility] Start: 09-19-2024 End: 09-19-2024 Patient encounter procedure [facility] Comment on above: f/u R knee bakers cyst Start: 09-04-2024 End: 09-04-2024 Patient encounter procedure [facility] Comment on above: 3 MONTH FOLLOW UP 3 mth follow up for med refill Start: 07-24-2024 Covid-19 Vaccine () Covid-19 Vaccine () [facility] Start: 07-16-2024 End: 07-16-2024 Patient encounter procedure 07/16/2024 3:00 PM EDT Office Visit [facility] [address] [place] [address] Arvind Haider DO [address] [place] [address] New/ Right Knee Pain and Swelling ( MRI Done at [facility]) [facility] Comment on above: New/ Right Knee Pain and Swelling ( MRI Done at [facility]) Start: 07-12-2024 Annual PCP Team Chronic Disease Visit Annual PCP Team Chronic Disease Visit [facility] Start: 07-12-2024 BP Controlled (<130/80) BP Controlled (<130/80) [facility] Start: 07-11-2024 End: 10-10-2024 Comprehensive metabolic 2000 panel - Serum or Plasma COMPREHENSIVE METABOLIC PANEL Lab Routine Primary hypertension Expected: 07/11/2024, Expires: 10/10/2024 [facility] Comment on above: Expected: 07/11/2024, Expires: Start: 07-11-2024 End: 10-10-2024 Lipid 1996 panel - Serum or Plasma LIPID PANEL, FASTING Lab Routine Type 2 diabetes mellitus 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) Mixed hyperlipidemia Expected: 07/11/2024, Expires: 10/10/2024 [facility] Comment on above: Expected: 07/11/2024, Expires: Start: 07-11-2024 End: 10-10-2024 Lipoprotein a [Mass/volume] in Serum or Plasma LIPOPROTEIN (A) Lab Routine Type 2 diabetes mellitus 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) Expected: 07/11/2024, Expires: 10/10/2024 [facility] Comment on above: Expected: 07/11/2024, Expires: Start: 07-11-2024 End: 10-10-2024 Microalbumin/Creatinine [Mass Ratio] in Urine ALBUMIN/CREATININE RATIO, URINE Lab Routine Type 2 diabetes mellitus 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) Expected: 07/11/2024, Expires: 10/10/2024 [facility] Work Phone: Comment on above: Expected: 07/11/2024, Expires: Start: 07-11-2024 End: 07-11-2024 Patient encounter procedure 07/11/2024 1:20 PM EDT Office Visit [facility] [address] [facility] [place] [address] Betty Bueno MD 1 [facility] [address] [place] [address] Return in about 3 months (around 07/10/2024). [facility] Comment on above: Return in about 3 months (around 07/11/19). Start: 07-08-2024 Hemoglobin A1c measurement HbA1C [facility] Start: 06-26-2024 End: 06-26-2024 Patient encounter procedure 06/26/2024 2:30 PM EST Office Visit [facility] [address] [place] [address] Kalin Esposito MD [address] [place] [address] epidural follow up [facility] Comment on above: epidural follow up Start: 06-25-2024 End: 06-25-2024 Patient encounter procedure [facility] Comment on above: 2 month follow up w Ashley for refills ( before 06/26/24) 2 month follow up w Ashley for refills (before 06/26/24)/ F/u from [facility] F/u from [facility] Start: 06-16-2024 Hepatitis B screening Urine Albumin:Creatinine Ratio [facility] Start: 06-11-2024 End: 06-11-2024 ambulatory [facility] Comment on above: Epidural Steroid Injection - Transforami nal Approach (TFESI) under fluoroscopic guidance RIGHT-SIDED at S1 AUTH GOOD valid(06/11 -06/22) LMS - Epidural Steroid Injection - Transforaminal Approach (TFESI) under fluoroscopic guidance RIGHT-SIDED at S1 Start: 06-04-2024 End: 06-04-2024 Patient encounter procedure 06/04/2024 1:45 PM EST Office Visit [facility] [address] [place] [address] Ashley Fleming APRN.MULTIPLE SLIDE OPERATOR [address] [place] [address] Return in about 3 months (around 06/05/2024) for ov in person for refill. [facility] Comment on above: Return in about 3 months (around 06/05/19) for ov in person for refill. Start: 05-30-2024 Annual PCP Team Chronic Disease Visit Annual PCP Team Chronic Disease Visit [facility] Start: 05-30-2024 BP Controlled (<130/80) BP Controlled (<130/80) [facility] Start: 05-30-2024 Diabetic foot examination Diabetic Foot Exam [facility] Start: 05-04-2024 End: 05-04-2024 Patient encounter procedure 05/04/2024 1:20 PM EST Office Visit [facility] [address] [place] [address] Charan Dukes DO [address] [place] [address] New Patient - Memory Impairment [facility] Comment on above: New Patient - Memory Impairment Start: 04-27-2024 End: 04-27-2024 Patient encounter procedure 04/27/2024 10:15 AM EST Office Visit [facility] [address] [place] [address] Kalin Esposito MD [address] [place] [address] Follow up ov in person for refill. pt rscheduled from Dr. Cintron [facility] Comment on above: Follow up ov in person for refill. pt rs cheduled from Dr. Cintron Start: 04-26-2024 End: 04-26-2024 Patient encounter procedure 04/26/2024 10:30 AM EST Office Visit [facility] [address] [place] [address] Bekah Cintron MD [address] [place] [address] Follow up ov in person for refill. pt requesting Dr. Cintron [facility] Comment on above: Follow up ov in person for refill. pt re questing Dr. Cintron Start: 04-25-2024 Advance Directive Discussion Advance Directive Discussion [facility] Start: 04-25-2024 Hemoglobin A1c measurement HbA1C [facility] Start: 04-25-2024 Medicare Advantage Annual Wellness Visit Medicare Advantage Annual Wellness Visit [facility] Start: 04-16-2024 End: 04-16-2024 Patient encounter procedure 04/16/2024 1:00 PM EST Office Visit [facility] [address] [place], [place] [address] Chuck Escobar PA-C [address] [place] [address] Left hand swelling/ pain X-Rays on 03/29 [facility] Comment on above: Left hand swelling/ pain X-Rays on 03/29 Start: 04-11-2024 End: 04-11-2024 Patient encounter procedure 04/11/2024 1:20 PM EST Office Visit [facility] 1 [place] [address] Betty Bueno MD 1 [facility] 2[address] NHR [place], [place] [id number] Return in about 3 months [facility] Comment on above: Return in about 3 months Start: 03-05-2024 End: 03-05-2024 Patient encounter procedure 03/05/2024 1:45 PM EST Office Visit [facility] [address] [place] [address] Ashley Fleming APRN.MULTIPLE SLIDE OPERATOR [address] [place], [place] [phone] Return in about 2 months (around 03/03/2024) for ov in person for refill. [facility] Comment on above: Return in about 2 months (around 03/03/20) for ov in person for refill. Start: 01-20-2024 End: 01-20-2024 Patient encounter procedure 01/20/2024 8:30 AM EDT Office Visit [facility] [address] [place] [address] Sherin Monroy, OD 1 [facility] [address] [place] [address] Dr. Bueno is concerned about my right eye reading. [facility] Comment on above: Dr. Bueno is concerned about my right ey e reading. Start: 01-02-2024 End: 01-02-2024 Patient encounter procedure [facility] Comment on above: Medicare Wellness 4 week follow up for refill Start: 12-25-2023 Covid-19 Vaccine ( season) Covid-19 Vaccine () [facility] Start: 12-25-2023 Covid-19 Vaccine () Covid-19 Vaccine () [facility] Start: 12-25-2023 Influenza vaccination Influenza Vaccine (#1) [facility] Start: 12-17-2023 Hepatitis B surface antibody level LDL CHOLESTEROL [facility] Start: 12-08-2023 ANNUAL PCP TEAM CHRONIC DISEASE VISIT ANNUAL PCP TEAM CHRONIC DISEASE VISIT [facility] Start: 12-02-2023 End: 12-02-2023 ambulatory 12/02/2023 11:30 AM EDT [facility] [address] [place] [address] Ashley Fleming APRN.MULTIPLE SLIDE OPERATOR [address] [facility] [address] [place] [address] [facility] Start: 12-02-2023 End: 12-02-2023 Follow-up encounter 12/02/2023 11:30 AM EDT [facility] [address] [place] [address] Ashley Fleming, DESK CLERK.MULTIPLE SLIDE OPERATOR [address] [place] [address] follow up [facility] Comment on above: follow up [facility] Start: 12-01-2023 ANNUAL PCP TEAM CHRONIC DISEASE VISIT ANNUAL PCP TEAM CHRONIC DISEASE VISIT [facility] Start: 12-01-2023 BP CONTROLLED (<130/80) BP CONTROLLED (<130/80) [facility] in Start: 11-28-2023 Hemoglobin A1c measurement HbA1C [facility] Start: 11-20-2023 ANNUAL PCP TEAM CHRONIC DISEASE VISIT ANNUAL PCP TEAM CHRONIC DISEASE VISIT [facility] Start: 11-16-2023 End: 11-16-2023 ambulatory [facility] Comment on above: Caudal epidural under fluoro AUTH GOOD LINE UP MACHINE OPERATOR Caudal epidural under fluoroscopic guidance (Diabetic, latex allergy) Start: 11-07-2023 DIABETES SCREEN DIABETES SCREEN [facility] Start: 10-24-2023 End: 10-24-2023 Patient encounter procedure [facility] Comment on above: 3 month follow up Start: 10-10-2023 End: 10-10-2023 ambulatory 10/10/2023 4:15 PM EDT OT/PT/Speech Visit [facility] [address] [place] [address] Winston Hernandez, ENGINE HEAD REPAIRER [address] [place] [address] $35 [facility] Comment on above: $35 [facility] Start: 10-10-2023 End: 10-10-2023 Patient encounter procedure 10/10/2023 2:45 PM EDT Office Visit [facility] [address] [place] [address] Ashley Fleming, DESK CLERK.MULTIPLE SLIDE OPERATOR [address] [place] [address] 3 months (around 10/18/2023) for ov in person for refill. [facility] Comment on above: 3 months (around 10/18/2023) for ov in pe rson for refill. Start: 10-03-2023 End: 10-03-2023 ambulatory 10/03/2023 2:30 PM EDT OT/PT/Speech Visit [facility] [address] [place] [address] Sandip Pappas, PT 1 [place], [place] [phone] $35 [facility] Comment on above: $35 [facility] Start: 09-26-2023 End: 09-26-2023 ambulatory 09/26/2023 1:00 PM EDT OT/PT/Speech Visit [facility] [address] [place] [address] Sandip Pappas, PT 1 [place], [place] [phone] $35 [facility] Comment on above: $35 [facility] Start: 09-16-2023 Glaucoma screening Dilated Retinal Exam [facility] Start: 09-16-2023 Hepatitis C antibody, confirmatory test DILATED RETINAL EXAM [facility] Start: 09-12-2023 End: 09-12-2023 ambulatory 09/12/2023 1:00 PM EDT OT/PT/Speech Visit [facility] [address] [place] [address] Sandip Pappas, PT 1 [place], [place] [phone] $35 [facility] Comment on above: $35 [facility] Start: 07-27-2023 ANNUAL PCP TEAM CHRONIC DISEASE VISIT ANNUAL PCP TEAM CHRONIC DISEASE VISIT [facility] Start: 07-13-2023 ANNUAL PCP TEAM CHRONIC DISEASE VISIT ANNUAL PCP TEAM CHRONIC DISEASE VISIT [facility] Start: 07-09-2023 Covid-19 Vaccine () Covid-19 Vaccine () [facility] Start: 06-18-2023 Hemoglobin A1c/Hemoglobin.total in Blood HBA1C [facility] Start: 05-18-2023 ANNUAL PCP TEAM CHRONIC DISEASE VISIT ANNUAL PCP TEAM CHRONIC DISEASE VISIT [facility] Start: 05-03-2023 ANNUAL PCP TEAM CHRONIC DISEASE VISIT ANNUAL PCP TEAM CHRONIC DISEASE VISIT [facility] Start: 05-03-2023 BP CONTROLLED (<130/80) BP CONTROLLED (<130/80) [facility] Start: 04-25-2023 Advance Directive Discussion Advance Directive Discussion [facility] Start: 04-25-2023 Behavioral Health Screening Behavioral Health Screening [facility] Start: 03-23-2023 Hepatitis B screening URINE ALBUMIN:CREATININE RATIO [facility] Start: 02-14-2023 End: 05-16-2023 Comprehensive metabolic 2000 panel - Serum or Plasma COMP METABOLIC PANEL Lab Routine Hypokalemia Primary hypertension Expected: 02/14/2023, Expires: 05/16/2023 [facility] Work Phone: Comment on above: Expected: 02/14/2023, Expires: Start: 01-25-2023 Hemoglobin A1c/Hemoglobin.total in Blood HBA1C [facility] Start: 12-24-2022 Covid-19 Vaccine ( season) Covid-19 Vaccine () [facility] Start: 12-24-2022 COVID-19 VACCINE (7 - Pfizer series) COVID-19 VACCINE (7 - Pfizer series) [facility] Comment on above: Postponed from 06/08/2022 (Declined at t his time) Start: 12-24-2022 Influenza vaccination [facility] Start: 10-27-2022 ANNUAL PCP TEAM CHRONIC DISEASE VISIT ANNUAL PCP TEAM CHRONIC DISEASE VISIT [facility] Start: 10-23-2022 ANNUAL PCP TEAM CHRONIC DISEASE VISIT ANNUAL PCP TEAM CHRONIC DISEASE VISIT [facility] Start: 09-25-2022 ANNUAL PCP TEAM CHRONIC DISEASE VISIT ANNUAL PCP TEAM CHRONIC DISEASE VISIT [facility] Start: 09-08-2022 ANNUAL PCP TEAM CHRONIC DISEASE VISIT ANNUAL PCP TEAM CHRONIC DISEASE VISIT [facility] Start: 09-07-2022 Hepatitis B surface antibody level LDL CHOLESTEROL [facility] Start: 09-07-2022 Hepatitis C antibody, confirmatory test DILATED RETINAL EXAM [facility] Start: 07-28-2022 3 comp foot exam completed DIABETIC FOOT EXAM [facility] Start: 06-22-2022 Hemoglobin A1c/Hemoglobin.total in Blood HBA1C [facility] Start: 06-08-2022 COVID-19 VACCINE (7 - Pfizer series) COVID-19 VACCINE (7 - Pfizer series) [facility] Start: 05-18-2022 ANNUAL PCP TEAM CHRONIC DISEASE VISIT ANNUAL PCP TEAM CHRONIC DISEASE VISIT [facility] Start: 05-18-2022 BP CONTROLLED (<130/80) BP CONTROLLED (<130/80) [facility] Start: 04-25-2022 ADVANCE DIRECTIVE DISCUSSION ADVANCE DIRECTIVE DISCUSSION [facility] Start: 04-25-2022 DEPRESSION ASSESSMENT DEPRESSION ASSESSMENT [facility] Start: 04-08-2022 Adult depression screening assessment DEPRESSION SCREENING [facility] Start: 04-08-2022 ANNUAL PCP TEAM CHRONIC DISEASE VISIT ANNUAL PCP TEAM CHRONIC DISEASE VISIT [facility] Start: 03-17-2022 End: 05-17-2022 ALBUMIN/CREAT RATIO RND UR ALBUMIN/CREAT RATIO RND UR Lab Routine Type 2 diabetes mellitus with peripheral neuropathy (HCC) Expected: 03/17/2022, Expires: 05/17/2022 [facility] Work Phone: Comment on above: Expected: 03/17/2022, Expires: 3 Start: 03-17-2022 End: 05-17-2022 Comprehensive metabolic 2000 panel - Serum or Plasma COMP METABOLIC PANEL Lab Routine Hypertension, essential Expected: 03/17/2022, Expires: 05/17/2022 [facility] Work Phone: Comment on above: Expected: 03/17/2022, Expires: 3 Start: 03-17-2022 End: 05-17-2022 Hemoglobin A1c in Blood HGB A1C Lab Routine Type 2 diabetes mellitus with peripheral neuropathy (HCC) Expected: 03/17/2022, Expires: 05/17/2022 [facility] Work Phone: Comment on above: Expected: 03/17/2022, Expires: 3 Start: 03-17-2022 End: 05-17-2022 Hepatitis C virus Ab [Presence] in Serum HEP C AB IA W/CONF SCRN Lab Routine Special screening examination for viral disease Expected: 03/17/2022, Expires: 05/17/2022 [facility] Work Phone: Comment on above: Expected: 03/17/2022, Expires: 3 Start: 02-28-2022 Hemoglobin A1c/Hemoglobin.total in Blood HBA1C [facility] Start: 02-13-2022 ANNUAL PCP TEAM CHRONIC DISEASE VISIT ANNUAL PCP TEAM CHRONIC DISEASE VISIT [facility] Start: 02-13-2022 Hepatitis B screening URINE ALBUMIN:CREATININE RATIO [facility] Start: 12-24-2021 Influenza vaccination INFLUENZA (#1) [facility] Start: 11-11-2021 HEPATITIS C SCREENING HEPATITIS C SCREENING [facility] Comment on above: Postponed from 1963 (Declined at t his time) Start: 11-06-2021 Hepatitis B surface antibody level LDL CHOLESTEROL [facility] Start: 11-03-2021 Adult depression screening assessment DEPRESSION SCREENING [facility] Start: 11-03-2021 ANNUAL PCP TEAM CHRONIC DISEASE VISIT ANNUAL PCP TEAM CHRONIC DISEASE VISIT [facility] Start: 10-23-2021 End: 12-23-2021 Bacteria identified in Urine by Culture [facility] Work Phone: Comment on above: Expected: 10/23/2021, Expires: 2 Start: 09-23-2021 COVID-19 VACCINE (5 - Booster for Pfizer series) COVID-19 VACCINE (5 - Booster for Pfizer series) [facility] Start: 08-14-2021 Hemoglobin A1c/Hemoglobin.total in Blood HBA1C [facility] Start: 04-25-2021 ADVANCE DIRECTIVE DISCUSSION ADVANCE DIRECTIVE DISCUSSION [facility] Start: 04-25-2021 DEPRESSION ASSESSMENT DEPRESSION ASSESSMENT [facility] Start: 01-23-2021 COVID-19 VACCINE (3 - Pfizer booster) COVID-19 VACCINE (3 - Pfizer booster) [facility] Start: 12-24-2020 Influenza vaccination INFLUENZA (#1) [facility] Start: 10-18-2019 SHINGRIX VACCINE (1 of 2) SHINGRIX VACCINE (1 of 2) [facility] Start: 11-01-2016 End: 11-01-2016 Appointment Appointment [facility] Work Phone: Start: 10-11-2016 End: 10-11-2016 Appointment Appointment [facility] Work Phone: Start: 10-11-2016 End: 10-11-2016 Diagnostic colonoscopy Colonoscopy [facility] [employer] Work Phone: Start: 10-11-2016 End: 10-11-2016 Follow Up Appt Other Follow Up Appt Other [facility] [employer] Work Phone: Start: 07-21-2016 SHINGRIX VACCINE (2 of 3) SHINGRIX VACCINE (2 of 3) [facility] Start: 03-17-2015 End: 03-26-2015 Neurology Referral [facility] [employer] Work Phone: Start: 2010 ADVANCE DIRECTIVE DISCUSSION ADVANCE DIRECTIVE DISCUSSION [facility] Start: 2010 BONE DENSITY BONE DENSITY [facility] Start: 2010 PNEUMOVAX AGE 65 AND OVER WITH 5YR LOOKBACK (#1) PNEUMOVAX AGE 65 AND OVER WITH 5YR LOOKBACK (#1) [facility] Start: 2005 Hepatitis B Vaccine (1 of 3 - Risk 3-dose series) Hepatitis B Vaccine (1 of 3 - Risk 3-dose series) [facility] Start: 2005 RSV Vaccine (1 - 1-dose 60+ series) RSV Vaccine (1 - 1-dose 60+ series) [facility] Start: 1995 Screening for malignant neoplasm of colon [facility] Start: 1990 COLOGUARD (FIT-DNA) COLOGUARD (FIT-DNA) [facility] Start: 1990 Colonoscopy COLONOSCOPY [facility] Start: 1990 COLORECTAL CANCER SCREENING COLORECTAL CANCER SCREENING [facility] Start: [address] COLONOGRAPHY [facility] Start: 1990 FECAL OCCULT BLOOD FECAL OCCULT BLOOD [facility] Start: 1990 SIGMOIDOSCOPY SIGMOIDOSCOPY [facility] Start: 02-27-1964 Urine microalbumin profile DTAP,TDAP,TD (1 - Tdap) [facility] Start: 1963 BP CONTROLLED (<130/80) BP CONTROLLED (<130/80) [facility] Start: 1963 HEPATITIS C SCREENING HEPATITIS C SCREENING [facility] Start: 1963 SPIROMETRY SPIROMETRY [facility] Start: 1957 Adult depression screening assessment DEPRESSION SCREENING [facility] Start: 11-04-1955 3 comp foot exam completed DIABETIC FOOT EXAM [facility] Start: 1955 Hepatitis B screening URINE ALBUMIN:CREATININE RATIO [facility] Start: 1955 Hepatitis C antibody, confirmatory test DILATED RETINAL EXAM [facility] Start: 1950 Hemoglobin A1c/Hemoglobin.total in Blood HBA1C [facility] Acupuncture 1/> ndle s w/o elec stimj init 15 min ACUPUNCT W/O STIMUL 15 MIN Procedures Routine Sacroiliitis (HCC) Lumbar radiculopathy Ordered: 10/14/2022 [facility] Work Phone: Comment on above: Ordered: 10/14/2022 Acupuncture 1/> ndls w/o elec stimj ea 15 min ACUPUNCT W/O STIMUL ADDL 15M Procedures Routine Sacroiliitis (HCC) Lumbar radiculopathy Ordered: 10/14/2022 [facility] Work Phone: Comment on above: Ordered: 10/14/2022 Arthrocentesis aspir &/inj major jt/bursa w/o us DRAIN/INJECT LARGE JOINT/BURSA Procedures Routine Sacroiliitis (HCC) Ordered: 11/26/2021 [facility] Work Phone: Comment on above: Ordered: 11/26/2021 Arthrocentesis aspir &/inj major jt/bursa w/o us DRAIN/INJECT LARGE JOINT/BURSA Procedures Routine Greater trochanteric bursitis, left Ordered: 10/15/2024 [facility] Work Phone: Comment on above: Ordered: 10/15/2024 Arthrocentesis aspir &/inj major jt/bursa w/o us DRAIN/INJECT LARGE JOINT/BURSA Procedures Routine Primary osteoarthritis of left hip Ordered: 12/19/2024 [facility] Work Phone: Comment on above: Ordered: 12/19/2024 End: 12-03-2021 Dxa bone density study 1/> sites axial skel DXA-AXIAL SKELETON Radiology Routine Screening for osteoporosis Asymptomatic menopause 1 Occurrences starting 11/03/2020 until 12/03/2021 [facility] Comment on above: 1 Occurrences starting 11/03/2020 until 12/03/2021 End: 04-09-2022 Echocardiography ECHO Cardiology Routine Chest pain, unspecified type 1 Occurrences starting 04/09/2021 until 04/09/2022 [facility] Work Phone: Comment on above: 1 Occurrences starting 04/09/2021 until 04/09/2022 Glucose [Mass/volume ] in Serum or Plasma GLUCOSE, BLOOD (POC) Lab Routine Greater trochanteric bursitis, left Ordered: 10/15/2024 [facility] Comment on above: Ordered: 10/15/2024 Glucose [Mass/volume ] in Serum or Plasma GLUCOSE, BLOOD (POC) Lab Routine Primary osteoarthritis of left hip Ordered: 12/19/2024 [facility] Comment on above: Ordered: 12/19/2024 Hemoglobin glycosyla karen a1c HGBA1C B/O Lab Routine Type 2 diabetes mellitus with peripheral neuropathy (HCC) Ordered: 02/13/2021 [facility] Comment on above: Ordered: 02/13/2021 Hemoglobin glycosyla karen a1c HGBA1C B/O Lab Routine Type 2 diabetes mellitus with peripheral neuropathy (HCC) Ordered: 08/28/2021 [facility] Work Phone: Comment on above: Ordered: 08/28/2021 Hemoglobin glycosyla karen a1c HGBA1C B/O Lab Routine Type 2 diabetes mellitus with peripheral neuropathy (HCC) Ordered: 07/26/2022 [facility] Work Phone: Comment on above: Ordered: 07/26/2022 Hemoglobin glycosyla karen a1c HGBA1C B/O Lab Routine Type 2 diabetes mellitus with peripheral neuropathy (HCC) Ordered: 04/11/2024 [facility] Work Phone: Comment on above: Ordered: 04/11/2024 Im adm thru 18yr any rte 1st/only compt vac/tox IMADM THROUGH 18YR ANY ROUTE 1ST VAC/TOXOID Procedures Routine Need for vaccination against Streptococcus pneumoniae using pneumococcal conjugate vaccine 7 Ordered: 04/08/2021 [facility] Work Phone: Comment on above: Ordered: 04/08/2021 Inject si joint arthrgrphy&/anes/steroid w/dai INJECTION PROCEDURE FOR SACROILIAC Procedures Routine Sacroiliitis (HCC) Ordered: 04/07/2021 [facility] Work Phone: Comment on above: Ordered: 04/07/2021 End: 12-15-2025 MR Brain WO and W contrast IV MRI BRAIN WO/W IVCON Radiology Routine Ophthalmoplegia 1 Occurrences starting 11/15/2024 until 12/15/2025 [facility] Work Phone: Comment on above: 1 Occurrences starting 11/15/2024 until 12/15/2025 MR Brain WO and W contrast IV MRI BRAIN WO/W IVCON Radiology Routine Ophthalmoplegia 12/17/2024 2:28 PM EDT [facility] Work Phone: End: 10-10-2022 Mri any jt upper extremity w/o contrast matrl MRI SHOULDER WO IVCON LT Radiology Routine Chronic left shoulder pain 1 Occurrences starting 09/10/2021 until 10/10/2022 [facility] Work Phone: Comment on above: 1 Occurrences starting 09/10/2021 until 10/10/2022 Mri any jt upper extremity w/o contrast matrl MRI SHOULDER WO IVCON LT Radiology Routine Chronic left shoulder pain 09/29/2021 11:34 AM EDT [facility] Work Phone: End: 09-12-2023 Mri spinal canal cervical w/o contrast matrl MRI CERVICAL SPINE WO IVCON Radiology Routine Spondylolysis of cervical region Spinal stenosis of cervical region 1 Occurrences starting 08/13/2022 until 09/12/2023 [facility] Work Phone: Comment on above: 1 Occurrences starting 08/13/2022 until 09/12/2023 End: 08-25-2022 Mri spinal canal cervical w/o contrast matrl [facility] Work Phone: Comment on above: 1 Occurrences starting 08/25/2022 until 08/25/2022 Njx anes&/strd w/img tfrml edrl lmbr/sac 1 lvl INJ TRANSFORAMINAL EPID ANES/STER LS SINGL Procedures Routine Lumbar radiculopathy Ordered: 06/11/2024 [facility] Work Phone: Comment on above: Ordered: 06/11/2024 Njx dx/ther sbst int rlmnr lmbr/sac w/img gdn EPI LUMBAR OR SACRAL W/IMAGING Procedures Routine Post laminectomy syndrome Ordered: 01/17/2023 [facility] Work Phone: Comment on above: Ordered: 01/17/2023 Njx dx/ther sbst int rlmnr lmbr/sac w/img gdn EPI LUMBAR OR SACRAL W/IMAGING Procedures Routine Post laminectomy syndrome Ordered: 11/16/2023 [facility] Work Phone: Comment on above: Ordered: 11/16/2023 End: 06-17-2022 NM CARDIAC PERF STRESS/PHARM NM CARDIAC PERF STRESS/PHARM Radiology Routine Other chest pain 1 Occurrences starting 05/18/2021 until 06/17/2022 [facility] Work Phone: Comment on above: 1 Occurrences starting 05/18/2021 until 06/17/2022 Radex spine cervical 2 or 3 views XR CERV GENERAL 2V AP/LAT Radiology Routine Neck pain Ordered: 10/16/2021 [facility] Work Phone: Comment on above: Ordered: 10/16/2021 End: 06-17-2022 Radiologic exam chest 2 views XR CHEST 2V FRONTAL/LAT Radiology Routine Chronic bilateral pleural effusions 1 Occurrences starting 05/18/2021 until 06/17/2022 [facility] Work Phone: Comment on above: 1 Occurrences starting 05/18/2021 until 06/17/2022 Removal impacted cer umen instrumentation unilat PERS HLTH MGMT EAR WAX REMOVA Procedures Routine Bilateral impacted cerumen Ordered: 09/08/2021 [facility] Work Phone: Comment on above: Ordered: 09/08/2021 End: 06-28-2024 SPIROMETRY - BASELINE AND POST DILATOR SPIROMETRY - BASELINE AND POST DILATOR PFT Routine Moderate persistent asthma, uncomplicated 1 Occurrences starting 05/30/2023 until 06/28/2024 [facility] Work Phone: Comment on above: 1 Occurrences starting 05/30/2023 until 06/28/2024 SPIROMETRY - BASELIN E AND POST DILATOR SPIROMETRY - BASELINE AND POST DILATOR PFT Routine Moderate persistent asthma, uncomplicated 06/29/2023 5:02 PM EST [facility] Work Phone: TOX SCREEN ROUT UR TOX SCREEN RO UT UR Lab Routine Encounter for long-term use of opiate analgesic Ordered: 01/30/2021 [facility] Comment on above: Ordered: 01/30/2021 TOX SCREEN ROUT UR TOX SCREEN RO UT UR Lab Routine Encounter for long-term use of opiate analgesic Ordered: 11/04/2021 [facility] Work Phone: Comment on above: Ordered: 11/04/2021 TOX SCREEN ROUT UR TOX SCREEN RO UT UR Lab Routine Encounter for long-term use of opiate analgesic Ordered: 01/05/2022 [facility] Work Phone: Comment on above: Ordered: 01/05/2022 TOX SCREEN ROUT UR TOX SCREEN RO UT UR Lab Routine Encounter for long-term use of opiate analgesic Ordered: 05/10/2022 [facility] Work Phone: Comment on above: Ordered: 05/10/2022 TOX SCREEN ROUT UR TOX SCREEN RO UT UR Lab Routine Encounter for long-term use of opiate analgesic Ordered: 07/09/2022 [facility] Work Phone: Comment on above: Ordered: 07/09/2022 TOX SCREEN ROUT UR TOX SCREEN RO UT UR Lab Routine Encounter for long-term use of opiate analgesic Ordered: 04/04/2023 [facility] Work Phone: Comment on above: Ordered: 04/04/2023 TOX SCREEN ROUT UR TOX SCREEN RO UT UR Lab Routine Encounter for long-term use of opiate analgesic Ordered: 07/18/2023 [facility] Work Phone: Comment on above: Ordered: 07/18/2023 TOXICOLOGY SCREEN, ROUTINE URINE TOXICOLOGY SCREEN, ROUTINE URINE Lab Routine Encounter for long-term use of opiate analgesic Ordered: 10/10/2023 [facility] Work Phone: Comment on above: Ordered: 10/10/2023 TOXICOLOGY SCREEN, ROUTINE URINE TOXICOLOGY SCREEN, ROUTINE URINE Lab Routine Encounter for long-term use of opiate analgesic Ordered: 01/02/2024 [facility] Work Phone: Comment on above: Ordered: 01/02/2024 TOXICOLOGY SCREEN, ROUTINE URINE TOXICOLOGY SCREEN, ROUTINE URINE Lab Routine Encounter for long-term use of opiate analgesic Ordered: 03/05/2024 [facility] Work Phone: Comment on above: Ordered: 03/05/2024 TOXICOLOGY SCREEN, ROUTINE URINE TOXICOLOGY SCREEN, ROUTINE URINE Lab Routine Lumbar radiculopathy Encounter for long-term use of opiate analgesic Ordered: 04/27/2024 [facility] Work Phone: Comment on above: Ordered: 04/27/2024 TOXICOLOGY SCREEN, ROUTINE URINE TOXICOLOGY SCREEN, ROUTINE URINE Lab Routine Encounter for long-term use of opiate analgesic Ordered: 09/04/2024 [facility] Work Phone: Comment on above: Ordered: 09/04/2024 TOXICOLOGY SCREEN, ROUTINE URINE TOXICOLOGY SCREEN, ROUTINE URINE Lab Routine Encounter for long-term use of opiate analgesic Ordered: 11/12/2024 [facility] Work Phone: Comment on above: Ordered: 11/12/2024 UA DIP B/O UA DIP B/O Lab R outine Dysuria Ordered: 07/26/2022 [facility] Work Phone: Comment on above: Ordered: 07/26/2022 End: 03-21-2025 XR Hand - left PA and Lateral and Oblique XR HAND GENERAL 3V PA/LAT/OBL LEFT Radiology Routine Left hand pain 1 Occurrences starting 02/20/2024 until 03/21/2025 [facility] Work Phone: Comment on above: 1 Occurrences starting 02/20/2024 until 03/21/2025 End: 03-29-2024 XR Hand - left PA and Lateral and Oblique [facility] Work Phone: Comment on above: 1 Occurrences starting 03/29/2024 until 03/29/2024 End: 11-12-2024 XR HIP BILATERAL 5V PEL/AP/LAT EACH HIP [facility] Work Phone: Comment on above: 1 Occurrences starting 11/12/2024 until 11/12/2024 End: 12-12-2025 XR HIP BILATERAL 5V PEL/AP/LAT EACH HIP XR HIP BILATERAL 5V PEL/AP/LAT EACH HIP Radiology Routine Pain in left hip Pain in right hip 1 Occurrences starting 11/12/2024 until 12/12/2025 [facility] Comment on above: 1 Occurrences starting 11/12/2024 until 12/12/2025 XR Knee - right 4 Views XR KNEE GENERAL 4V AP BOTH/PA BOTH/LAT/MERC RIGHT Radiology Routine Acute pain of right knee 07/19/2023 9:24 AM EDT [facility] Work Phone: End: 08-11-2024 XR Knee - right 4 Views XR KNEE GENERAL 4V AP BOTH/PA BOTH/LAT/MERC RIGHT Radiology Routine Acute pain of right knee 1 Occurrences starting 07/13/2023 until 08/11/2024 [facility] Work Phone: Comment on above: 1 Occurrences starting 07/13/2023 until 08/11/2024 End: 03-21-2025 XR Wrist - left PA and Lateral and Oblique XR WRIST GENERAL 3V PA/LAT/OBL LEFT Radiology Routine Left hand pain 1 Occurrences starting 02/20/2024 until 03/21/2025 [facility] Comment on above: 1 Occurrences starting 02/20/2024 until 03/21/2025 End: 03-29-2024 XR Wrist - left PA and Lateral and Oblique [facility] Comment on above: 1 Occurrences starting 03/29/2024 until 03/29/2024 [facility] Immunizations Immunization Date Immunization Notes Care Provider Fa [facility] 01-04-2025 influenza, high dose seasonal, preservative-free Arvind Haider DO Work Phone: [facility] 01-04-2024 influenza, high dose seasonal, preservative-free Betty Bueno MD Work Phone: [facility] 01-04-2024 influenza virus vaccine, unspecified formulation Dustin Campos OD Work Phone: [facility] 11-30-2023 pneumococcal conjuga te (PCV20) vaccine, 20 valent (PREVNAR 20) Ashley Fleming APRN.MULTIPLE SLIDE OPERATOR Work Phone: [facility] 03-10-2023 COVID-19 vaccine, ag e 12+ yr, 2022- season ([employer]-XD NutritionNTPulsant) Ashley Fleming APRN.MULTIPLE SLIDE OPERATOR Work Phone: [facility] 03-08-2023 respiratory syncytia l virus (RSV) vaccine, adjuvanted (AREXVY) Ashley Fleming APRN.MULTIPLE SLIDE OPERATOR Work Phone: [facility] 01-05-2023 influenza (HD-IIV4) vaccine, age 65+ yr, high dose, quadrivalent, PF (FLUZONE HIGH-DOSE) Ashley Fleming APRN.MULTIPLE SLIDE OPERATOR Work Phone: [facility] 01-05-2023 influenza virus vaccine, unspecified formulation Arvind Haider DO Work Phone: [facility] 02-05-2022 influenza, high-dose , quadrivalent vaccine (FLUZONE HIGH DOSE QUADRIVALENT) Betty Bueno MD Work Phone: [facility] 02-05-2022 influenza virus vaccine, unspecified formulation Aggie Polanco DO Work Phone: [facility] 07-30-2021 COVID-19 original vaccine, age 12+ yr, monovalent (PFIZER-BIONTECH - PURPLE TOP) Betty Bueno MD Work Phone: [facility] 07-29-2021 COVID-19 original vaccine, age 12+ yr, monovalent (PFIZER-BIONTECH - TALAMANTES TOP) Ashley Lonnie URENA.MULTIPLE SLIDE OPERATOR Work Phone: [facility] 04-08-2021 pneumococcal polysaccharide vaccine, 23 valent Rojelio Armenta MD Work Phone: [facility] 02-13-2021 influenza, high-dose , quadrivalent vaccine (FLUZONE HIGH DOSE QUADRIVALENT) Betty Bueno MD Work Phone: [facility] 07-24-2020 COVID-19 vaccine (PFIZER-BIONTECH) Betty Bueno MD Work Phone: [facility] 07-03-2020 tetanus toxoid, redu tammy diphtheria toxoid, and acellular pertussis vaccine, adsorbed Betty Bueno MD Work Phone: [facility] 07-02-2020 COVID-19 vaccine (PFIZER-BIONTECH) Betty Bueno MD Work Phone: [facility] 01-16-2020 influenza, seasonal, injectable Mri (1.5t) [facility] 01-16-2020 influenza, seasonal, injectable, preservative free Betty Bueno MD Work Phone: [facility] 08-23-2019 varicella virus vaccine Rex Bueno MD Work Phone: [facility] 08-23-2019 zoster vaccine recombinant Betty Bueno MD Work Phone: [facility] Work Phone: 05-30-2019 zoster vaccine recombinant Betty Bueno MD Work Phone: [facility] Work Phone: 02-23-2019 influenza, high dose seasonal, preservative-free Betty Bueno MD Work Phone: [facility] 02-23-2019 influenza, seasonal, injectable, preservative free Betty Bueno MD Work Phone: [facility] 02-09-2018 influenza, high dose seasonal, preservative-free Betty Bueno MD Work Phone: [facility] 02-09-2017 influenza, seasonal, injectable, preservative free Betty Bueno MD Work Phone: [facility] 05-26-2016 zoster vaccine, live Betty waterman MD Work Phone: [facility] 01-23-2015 pneumococcal conjuga te vaccine, 13 valent Betty Bueno MD Work Phone: [facility] Payers Date Payer Category Payer Medicare [id number] 2022 Medicare (Managed Care) [id number] 2022 Unknown [id number] 2022 Medicare [id number] 2021 Medicare [employer] MEDICARE A ETNA MEDICARE PPO [id number] 2021-Present [phone] [address] [place] [address] PPO [id number] 2021 Medicare AETNA MEDICARE A ETNA MEDICARE PPO [id number] 2021-Present [phone] [address] [place] [address] PPO [id number] 2020 Medicare [id number] Social History Date Type Detail Facility Tobacco smoking stat us SDIS Unknown if ever smoked [facility] Start: 1945 Sex Assigned At Not on file [facility] Start: 11-03-2020 End: 02-13-2021 Tobacco smoking status NHIS Never smoker [facility] Start: 11-03-2020 End: 02-16-2022 Tobacco use and exposure Never used [facility] Start: 11-03-2020 End: 01-09-2025 Alcohol intake Lifetime non-drinker (finding) [facility] Start: 11-03-2020 History SDOH Alcohol Frequency 1 [facility] Start: 1945 Sex Assigned At Female [facility] Start: 07-06-2021 End: 03-23-2022 Exposure to SARS-CoV-2 (event) Not sure [facility] Start: 02-16-2022 Tobacco smoking status SDIS Ex-smoker [facility] History of tobacco use Current smoker [facility] History of tobacco use Cigarette Smoker [facility] Start: 09-01-2022 End: 11-05-2022 History of Social function [facility] Work Phone: Start: 09-01-2022 End: 11-05-2022 Tobacco use panel [facility] Work Phone: Start: 03-26-2012 Adult Depression Screening Assessment 0 [facility] Work Phone: (I/We) worried wheth er (my/our) food would run out before (I/we) got money to buy more. Never true [facility] Start: 10-28-2020 Gender identity Identifies as female gender (finding) [facility] Start: 10-28-2020 Sexual orientation Heterosexual (finding) [facility] Do you belong to any clubs or organizations such as buddhist groups, unions, fraternal or athletic groups, or school groups? Yes [facility] Are you now , , , , never or living with a partner? [facility] How often to you hav e a drink containing alcohol? Never [facility] How hard is it for y ou to pay for the very basics like food, housing, medical care, and heating Somewhat hard [facility] Do you feel stress - tense, restless, nervous, or anxious, or unable to sleep at night because your mind is troubled all the time - these days [OSQ] Not at all [facility] (I/We) worried wheth er (my/our) food would run out before (I/we) got money to buy more. Often true [facility] The food that (I/we) bought just didn't last, and (I/we) didn't have money to get more. Sometimes true [facility] In the past 12 month s, was there a time when you were not able to pay the mortgage or rent on time? No [facility] Medical Equipment Procedure Code Equipment Code Equipment Original Text Equipment Identifier Dates [id number], [id number], [id number], [id number], [id number], [id number], [id number] Start: 12-02-2020 End: 05-04-2024 Comment on above: Use as instructed to check blood sugar once daily as needed. Use as instructed to check blood sugar once daily as needed USE DIRECTED 1 ON CE DAILY NEEDED Clinical Notes 09-19-2020 to 02-19-2025 Telephone Encounter - Jean Paul Fu - 01/08/2025 10:57 AM EDTTelephone Encounter - Jean Paul Fu - 01/08/2025 10:57 AM EDTPatient Instructions Note Date & Type Note Facility 02-19-2025 Note HNO ID: [id number] Author: KAYTA MARTINEZ, DO Service: ? Author Type: Physician Type: Progress Notes Filed: 02/19/2025 17:25 Note Text: HPI: Akila De Los Santos presented to the Orthopedics department for follow-up regarding right knee pain Euflexxa injection #3/3 schedule today Denies any new injury or trauma since last visit Increased pain posterior medial knee overnight-in the area of the previous Lindsey's cyst Has had the cyst drained multiple times in the past but always returns Did not try ice recently Persistent right knee pain with potentially some mild improvement with Euflexxa injections #1/2 so far Has noticed mild increase swelling in the right calf area but no erythema, increased warmth or ecchymosis. Admits remote history of previous DVT right lower extremity this feels different Declined order for DVT ultrasound right lower extremity despite discussion of potential risks Patient agreed to seek additional care through emergency room or primary care if persistent or worsening right lower extremity pain, swelling or concern regarding possible DVT. HPI PAST MEDICAL HISTORY Diagnosis Date 4th nerve palsy, left Asthma (HCC) Diabetes mellitus (HCC) DJD (degenerative joint disease) Left hand pain Osteoarthritis of multiple joints PAD (peripheral artery disease) TIA (transient ischemic attack) PAST SURGICAL HISTORY Procedure Laterality Date CATARACT EXTRACTION HX Left 11/2016 CATARACT EXTRACTION HX Right 11/2018 TOTAL ABDOM HYSTERECTOMY SOCIAL HISTORY[1] Current Outpatient Medications Medication Sig fluticasone-salmeterol (ADVAIR) 500-50 mcg/dose dsdv INHALE 1 PUFF TWICE DAILY citalopram (CELEXA) 20 mg tablet Take 1 tablet by mouth once daily solifenacin (VESICARE) 5 mg tablet Take 1 tablet by mouth once daily rosuvastatin (CRESTOR) 10 mg tablet Take 1 tablet by mouth daily at bedtime. traMADol (ULTRAM) 50 mg tablet Take 1 tablet by mouth at bedtime as needed for pain for up to 60 days. Patient should start on February 01, 2025. Lancets Use with blood glucose test once daily blood sugar diagnostic test strip Use with blood glucose test once daily alcohol swabs Use with blood glucose test once daily Blood-Glucose Sensor (FREESTYLE LINDA 2 PLUS SENSOR) bronson Use as directed to check blood sugar 3 times daily flash glucose scanning reader (FREESTYLE LINDA 2 READER) Use as directed to check blood glucose 3 times daily montelukast (SINGULAIR) 10 mg tablet TAKE 1 TABLET BY MOUTH ONCE DAILY AT BEDTIME valACYclovir (VALTREX) 1 gram tablet Take 1 tablet by mouth once daily primidone (MYSOLINE) 50 mg tablet TAKE 1 TABLET BY MOUTH ONCE DAILY AT BEDTIME amLODIPine (NORVASC) 10 mg tablet Take 1 tablet by mouth once daily potassium chloride 20 mEq TbER Take 2 tablets by mouth twice daily pregabalin (LYRICA) 75 mg capsule Take 1 capsule by mouth three times a day for 180 days. indapamide (LOZOL) 2.5 mg tablet Take 1 tablet by mouth once daily losartan (COZAAR) 100 mg tablet Take 1 tablet by mouth once daily. albuterol HFA (VENTOLIN HFA) 90 mcg/actuation inhaler Inhale 2 Puffs as instructed every 4 hours as needed for wheezing/shortness of breath. ascorbic acid, vitamin C, (VITAMIN C) 500 mg tablet 1 tab(s) orally once a day for 30 day(s) betamethasone dipropionate 0.05 % ointment Apply to affected area twice daily. Lancets Use with blood glucose test once daily metFORMIN ER (GLUCOPHAGE XR) 500 mg 24 hr tablet Take 2 tablets by mouth daily with breakfast. (Patient not taking: Reported on 02/19/2025) No current facility-administered medications for this visit. ALLERGIES Allergen Reactions Aspirin Shortness of Breath Lisinopril Swelling Latex Rash Penicillins Hives, Rash Sulfamethoxazole Hives Trileptal [Oxcarbaz* Other: See Comments Balance Problems after taking for a few days Resp 18 Ht 5' 1 (1.55m) Wt 144 lb (65.3kg) BMI 27.22 kg/(m2). ROS: Denies any significant change to relevant ROS EXAM: General: Alert and oriented ?3 in no apparent distress. Gait: Mildly antalgic gait using a cane for assistance Head: Normocephalic and atraumatic Psyche: Normal affect, good insight and eye contact, no irritability or inappropriate behavior Skin: Skin condition is healthy without rashes or erythema. Cadiovascular: Normal palpable distal pulses without focal edema or swelling Neck: Supple Pulmonary: Non labored breathing and no pursed lips. There is no evidence of cyanosis. Neuro: There are no focal neurologic deficits--normal gross sensory function Right lower extremity/knee: Moderate discomfort along the posterior medial joint line and along the posterior medial left knee over an area of prominence consistent with Lindsey's cyst. Trace effusion right knee and mild edema right lower extremity but no erythema, increased warmth or ecchymosis noted. Mild discomfort with palpation posterior medial proximal calf but grossly n (more content not included)... [facility] 02-19-2025 Note HNO ID: [id number] Author: KATIE CALLOWAY LPN Service: ? Author Type: Licensed Nurse Type: Progress Notes Filed: 02/19/2025 17:25 Note Text: Prepared medication injection Euflexxa for provider to administer to patient per order. Once prepared medication was handed to provider to administer to patient. Katie Calloway LPN [facility] 02-19-2025 Note HNO ID: [id number] Author: KATIE CALLOWAY LPN Service: ? Author Type: Licensed Nurse Type: Progress Notes Filed: 02/19/2025 17:25 Note Text: Location of pain: right knee Patient is here today for her 3rd gel injection Last visit for this issue: 1 week ago Any additional/new injury since last visit: NO BWC: NO Pain at rest: 3 Pain at times up to : 02/01 Treatment for this issue since last visit: OTC pain relief Additional History related to concern: patient does have a lindsey cyst in that knee as well Imaging since last visit: NO [facility] 02-17-2025 Note HNO ID: [id number] Author: VANESSA WHITT MD Service: ? Author Type: Physician Type: Progress Notes Filed: 02/17/2025 15:59 Note Text: Attending Note I did not examine the patient but agree with the resident's findings and plan as documented and have discussed the case and management of the patient's care with the resident. I agree with the feliz elements of the history. I agree with the feliz elements of the physical exam. I reviewed the findings with the resident, . 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 See resident's note for furthur details. [facility] 02-17-2025 Note HNO ID: [id number] Author: VANESSA WHITT MD Service: ? Author Type: Physician Type: Progress Notes Filed: 02/17/2025 15:59 Note Text: Attending Note I did not examine the patient but agree with the resident's findings and plan as documented and have discussed the case and management of the patient's care with the resident. I agree with the feliz elements of the history. I agree with the feliz elements of the physical exam. I reviewed the findings with the resident, . 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 See resident's note for furthur details. [facility] 02-12-2025 Note HNO ID: [id number] Author: SYDNEE LEAVITT, DO Service: ? Author Type: Resident Type: Progress Notes Filed: 02/12/2025 16:56 Note Text: [facility] [address] [facility] [employer] [facility] / [address] [place], [place] [address] Visit Date: February 12, 2025 Name: Akila De Los Santos Date of : 1945 MRN/E #: [id number] Chief Complaint: No chief complaint on file. Subjective Akila De Los Santos is a 79 year old female here with the following complaint(s): Bilateral tremor of upper upper extremities -Reports worsening symptoms over the last week The history is provided by the patient. T2DM - Comorbidities: HTN - Meds: Metformin 500 mg BID - Statin: Crestor 10 mg - ENZO/ARB: Losartan 100 mg - Asa: No - Albumin/creatinine ratio: Albumin/Creat Ratio (mg/g) Date Value 10/09/2024 93 (H) - Medication compliance: No issues remembering AM meds, but sometimes forget bedtime meds - New symptoms: No - A1c: 6.1 - 02/12/2025 30 day Freestyle linda - Time in target 98% - Low glucose: 1 - Average glucose: 107 Tremors - Previously controlled with diet - Only changes to medication is starting metformin - Noticed tremor was gradually worsening over the past month but got worse in the past week - Dropping things, hard to press buttons on phone Vision worsening - No pain in eyes, floaters or stars, no curtain obscuring view or pressure - Focusing image has become difficult - Follows with optometry - Last seen on 11/09/2024 ALLERGIES Allergen Reactions Aspirin Shortness of Breath Lisinopril Swelling Latex Rash Penicillins Hives, Rash Sulfamethoxazole Hives Trileptal [Oxcarbaz* Other: See Comments Balance Problems after taking for a few days Current Outpatient Medications Medication Sig fluticasone-salmeterol (ADVAIR) 500-50 mcg/dose dsdv INHALE 1 PUFF TWICE DAILY citalopram (CELEXA) 20 mg tablet Take 1 tablet by mouth once daily solifenacin (VESICARE) 5 mg tablet Take 1 tablet by mouth once daily rosuvastatin (CRESTOR) 10 mg tablet Take 1 tablet by mouth daily at bedtime. traMADol (ULTRAM) 50 mg tablet Take 1 tablet by mouth at bedtime as needed for pain for up to 60 days. Patient should start on February 01, 2025. Lancets Use with blood glucose test once daily blood sugar diagnostic test strip Use with blood glucose test once daily Lancets Use with blood glucose test once daily alcohol swabs Use with blood glucose test once daily Blood-Glucose Sensor (FREESTYLE LINDA 2 PLUS SENSOR) bronson Use as directed to check blood sugar 3 times daily flash glucose scanning reader (FREESTYLE LINDA 2 READER) Use as directed to check blood glucose 3 times daily montelukast (SINGULAIR) 10 mg tablet TAKE 1 TABLET BY MOUTH ONCE DAILY AT BEDTIME valACYclovir (VALTREX) 1 gram tablet Take 1 tablet by mouth once daily primidone (MYSOLINE) 50 mg tablet TAKE 1 TABLET BY MOUTH ONCE DAILY AT BEDTIME amLODIPine (NORVASC) 10 mg tablet Take 1 tablet by mouth once daily potassium chloride 20 mEq TbER Take 2 tablets by mouth twice daily pregabalin (LYRICA) 75 mg capsule Take 1 capsule by mouth three times a day for 180 days. metFORMIN ER (GLUCOPHAGE XR) 500 mg 24 hr tablet Take 2 tablets by mouth daily with breakfast. indapamide (LOZOL) 2.5 mg tablet Take 1 tablet by mouth once daily losartan (COZAAR) 100 mg tablet Take 1 tablet by mouth once daily. albuterol HFA (VENTOLIN HFA) 90 mcg/actuation inhaler Inhale 2 Puffs as instructed every 4 hours as needed for wheezing/shortness of breath. ascorbic acid, vitamin C, (VITAMIN C) 500 mg tablet 1 tab(s) orally once a day for 30 day(s) betamethasone dipropionate 0.05 % ointment Apply to affected area twice daily. No current facility-administered medications for this visit. I have confirmed and edited as necessary the chief complaint, medications, past medical, family and social histories. Objective 02/12/25 1504 02/12/25 1506 BP: 140/73 143/59 Pulse: 62 Resp: 18 Temp: 36.4 ?C (97.5 ?F) TempSrc: Temporal SpO2: 100% Weight: 144 lb 9.6 oz (65.6 kg) Body mass index is 27.32 kg/m?. PHQ-9 More data exists 01/02/2024 04/09/2024 07/15/2024 09/18/2024 01/22/2025 PHQ-9 Scores Little interest or pleasure in doing things: Not at all Not at all Not at all Not at all Not at all Feeling down, depressed, or hopeless: Not at all Not at all Not at all Not at all Not at all Trouble falling or staying asleep, or sleeping too much Not at all - - - - Feeling tired or having little energy Several days - - - - Poor appetite or overeating Not at all - - - - Feeling bad about yourself - or that you are a failure or have let yourself or your family down Not at all - - - - Trouble concentrating on things, such as reading the newspaper or watching television Not at all - - - - Moving or speaking so slowly that other people could have notice (more content not included)... [facility] 02-05-2025 Note HNO ID: [id number] Author: KATYA MARTINEZ, DO Service: ? Author Type: Physician Type: Progress Notes Filed: 02/05/2025 14:55 Note Text: HPI: The patient is a 79-year-old female presenting for administration of her second knee injection. Akila is a 79-year-old female with a history of knee pain, presenting for a follow-up visit and second knee injection. Knee Pain: - No issues following the first knee injection last week; denies redness, warmth, or signs of infection. - No new knee injuries since the last visit. - Continues to use a cane for ambulation. - Not wearing compression stockings; wearing knee-high pantyhose. - Reports persistent swelling in the knee, particularly around the patella. - Denies any questions or concerns about receiving the second injection today. History of Osteoarthritis over 21 yo? Yes Any altered function? Moderate pain with weightbearing activity Reviewed pain scale and intake details associated with this visit documented in note PAST MEDICAL HISTORY Diagnosis Date 4th nerve palsy, left Asthma (HCC) Diabetes mellitus (HCC) DJD (degenerative joint disease) Left hand pain Osteoarthritis of multiple joints PAD (peripheral artery disease) TIA (transient ischemic attack) PAST SURGICAL HISTORY Procedure Laterality Date CATARACT EXTRACTION HX Left 11/2016 CATARACT EXTRACTION HX Right 11/2018 TOTAL ABDOM HYSTERECTOMY SOCIAL HISTORY[1] Current Outpatient Medications Medication Sig solifenacin (VESICARE) 5 mg tablet Take 1 tablet by mouth once daily rosuvastatin (CRESTOR) 10 mg tablet Take 1 tablet by mouth daily at bedtime. traMADol (ULTRAM) 50 mg tablet Take 1 tablet by mouth at bedtime as needed for pain for up to 60 days. Patient should start on February 01, 2025. fluticasone-vilanterol (BREO ELLIPTA) 200-25 mcg/dose inhaler 1 puff(s) inhaled once a day; Duration: 30 day(s) Lancets Use with blood glucose test once daily blood sugar diagnostic test strip Use with blood glucose test once daily Lancets Use with blood glucose test once daily alcohol swabs Use with blood glucose test once daily Blood-Glucose Sensor (FREESTYLE LINDA 2 PLUS SENSOR) bronson Use as directed to check blood sugar 3 times daily flash glucose scanning reader (FREESTYLE LINDA 2 READER) Use as directed to check blood glucose 3 times daily montelukast (SINGULAIR) 10 mg tablet TAKE 1 TABLET BY MOUTH ONCE DAILY AT BEDTIME valACYclovir (VALTREX) 1 gram tablet Take 1 tablet by mouth once daily primidone (MYSOLINE) 50 mg tablet TAKE 1 TABLET BY MOUTH ONCE DAILY AT BEDTIME amLODIPine (NORVASC) 10 mg tablet Take 1 tablet by mouth once daily potassium chloride 20 mEq TbER Take 2 tablets by mouth twice daily pregabalin (LYRICA) 75 mg capsule Take 1 capsule by mouth three times a day for 180 days. metFORMIN ER (GLUCOPHAGE XR) 500 mg 24 hr tablet Take 2 tablets by mouth daily with breakfast. indapamide (LOZOL) 2.5 mg tablet Take 1 tablet by mouth once daily losartan (COZAAR) 100 mg tablet Take 1 tablet by mouth once daily. citalopram (CELEXA) 20 mg tablet Take 1 tablet by mouth once daily fluticasone-salmeterol (WIXELA INHUB) 500-50 mcg/dose dsdv Inhale 1 Puff as instructed two times a day. albuterol HFA (VENTOLIN HFA) 90 mcg/actuation inhaler Inhale 2 Puffs as instructed every 4 hours as needed for wheezing/shortness of breath. ascorbic acid, vitamin C, (VITAMIN C) 500 mg tablet 1 tab(s) orally once a day for 30 day(s) betamethasone dipropionate 0.05 % ointment Apply to affected area twice daily. No current facility-administered medications for this visit. ALLERGIES Allergen Reactions Aspirin Shortness of Breath Lisinopril Swelling Latex Rash Penicillins Hives, Rash Sulfamethoxazole Hives Trileptal [Oxcarbaz* Other: See Comments Balance Problems after taking for a few days Resp 18 Ht 5' 1 (1.55m) Wt 145 lb (65.8kg) BMI 27.41 kg/(m2). ROS: I have reviewed and agree with the ROS performed and documented within this office visit Skin: (-) injection site erythema, (-) injection site warmth Musculoskeletal: (+) knee pain, (+) knee swelling EXAM: General: Alert and oriented ?3 in no apparent distress. Gait: Moderately antalgic gait using a cane for assistance Head: Normocephalic and atraumatic Psyche: Normal affect, good insight and eye contact, no irritability or inappropriate behavior Skin: Skin condition is healthy without rashes or erythema. Cadiovascular: Normal palpable distal pulses without focal edema or swelling Neck: Supple Pulmonary: Non labored breathing and no pursed lips. There is no evidence of cyanosis. Neuro: There are no focal neurologic deficits--normal gross sensory function Musculoskeletal: - Knee: Mild effusion noted; no erythema or increased warmth. Moderate stiffness but grossly normal range of motion without new focal weakness or instability. Assessment and Plan: 1. Chronic pain of right knee ( (more content not included)... [facility] 02-05-2025 Note HNO ID: [id number] Author: KATIE CALLOWAY LPN Service: ? Author Type: Licensed Nurse Type: Progress Notes Filed: 02/05/2025 14:55 Note Text: Prepared medication injection Euflexxa for provider to administer to patient per order. Once prepared medication was handed to provider to administer to patient. Katie Calloway LPN [facility] 02-05-2025 Note HNO ID: [id number] Author: KATIE CALLOWAY LPN Service: ? Author Type: Licensed Nurse Type: Progress Notes Filed: 02/05/2025 14:55 Note Text: Location of pain: right knee Symptoms started: YEARS Last visit for this issue: 1 week ago 01/29/2025 Any additional/new injury since last visit: NO BWC: NO Pain at rest: 6/10 Pain at times up to : 8/10 Treatment for this issue since last visit: N/A Additional History related to concern: N/A Imaging since last visit: N/A [facility] 01-29-2025 Note HNO ID: [id number] Author: KATYA MARTINEZ, DO Service: ? Author Type: Physician Type: Progress Notes Filed: 02/01/2025 14:21 Note Text: HPI: The patient is a 79-year-old female presenting for intra-articular Euflexxa gel injection of the right knee. Right Knee Pain: - Has received cortisone injections in the past; denies previous gel injections. - Uses a cane intermittently for ambulation and weight-bearing support. - Denies recent injuries. - No known allergies to Betadine or adhesives. History of Osteoarthritis over 21 yo? Yes Any altered function? Moderate pain with weightbearing activity Reviewed pain scale and intake details associated with this visit documented in note PAST MEDICAL HISTORY Diagnosis Date 4th nerve palsy, left Asthma (HCC) Diabetes mellitus (HCC) DJD (degenerative joint disease) Left hand pain Osteoarthritis of multiple joints PAD (peripheral artery disease) TIA (transient ischemic attack) PAST SURGICAL HISTORY Procedure Laterality Date CATARACT EXTRACTION HX Left 11/2016 CATARACT EXTRACTION HX Right 11/2018 TOTAL ABDOM HYSTERECTOMY SOCIAL HISTORY[1] Current Outpatient Medications Medication Sig solifenacin (VESICARE) 5 mg tablet Take 1 tablet by mouth once daily rosuvastatin (CRESTOR) 10 mg tablet Take 1 tablet by mouth daily at bedtime. traMADol (ULTRAM) 50 mg tablet Take 1 tablet by mouth at bedtime as needed for pain for up to 60 days. Patient should start on February 01, 2025. fluticasone-vilanterol (BREO ELLIPTA) 200-25 mcg/dose inhaler 1 puff(s) inhaled once a day; Duration: 30 day(s) Lancets Use with blood glucose test once daily blood sugar diagnostic test strip Use with blood glucose test once daily Lancets Use with blood glucose test once daily alcohol swabs Use with blood glucose test once daily Blood-Glucose Sensor (FREESTYLE LINDA 2 PLUS SENSOR) bronson Use as directed to check blood sugar 3 times daily flash glucose scanning reader (FREESTYLE LINDA 2 READER) Use as directed to check blood glucose 3 times daily montelukast (SINGULAIR) 10 mg tablet TAKE 1 TABLET BY MOUTH ONCE DAILY AT BEDTIME valACYclovir (VALTREX) 1 gram tablet Take 1 tablet by mouth once daily primidone (MYSOLINE) 50 mg tablet TAKE 1 TABLET BY MOUTH ONCE DAILY AT BEDTIME amLODIPine (NORVASC) 10 mg tablet Take 1 tablet by mouth once daily potassium chloride 20 mEq TbER Take 2 tablets by mouth twice daily pregabalin (LYRICA) 75 mg capsule Take 1 capsule by mouth three times a day for 180 days. metFORMIN ER (GLUCOPHAGE XR) 500 mg 24 hr tablet Take 2 tablets by mouth daily with breakfast. indapamide (LOZOL) 2.5 mg tablet Take 1 tablet by mouth once daily losartan (COZAAR) 100 mg tablet Take 1 tablet by mouth once daily. citalopram (CELEXA) 20 mg tablet Take 1 tablet by mouth once daily fluticasone-salmeterol (WIXELA INHUB) 500-50 mcg/dose dsdv Inhale 1 Puff as instructed two times a day. albuterol HFA (VENTOLIN HFA) 90 mcg/actuation inhaler Inhale 2 Puffs as instructed every 4 hours as needed for wheezing/shortness of breath. ascorbic acid, vitamin C, (VITAMIN C) 500 mg tablet 1 tab(s) orally once a day for 30 day(s) betamethasone dipropionate 0.05 % ointment Apply to affected area twice daily. No current facility-administered medications for this visit. ALLERGIES Allergen Reactions Aspirin Shortness of Breath Lisinopril Swelling Latex Rash Penicillins Hives, Rash Sulfamethoxazole Hives Trileptal [Oxcarbaz* Other: See Comments Balance Problems after taking for a few days Resp 20 Ht 5' 1 (1.55m) Wt 145 lb (65.8kg) BMI 27.41 kg/(m2). ROS: I have reviewed and agree with the ROS performed and documented within this office visit Musculoskeletal: (+) ambulation difficulty EXAM: General: Alert and oriented ?3 in no apparent distress. Gait: Slightly antalgic gait Head: Normocephalic and atraumatic Psyche: Normal affect, good insight and eye contact, no irritability or inappropriate behavior Skin: Skin condition is healthy without rashes or erythema. Cadiovascular: Normal palpable distal pulses without focal edema or swelling Neck: Supple Pulmonary: Non labored breathing and no pursed lips. There is no evidence of cyanosis. Neuro: There are no focal neurologic deficits--normal gross sensory function Musculoskeletal: - Right Knee: Trace effusion no erythema, increased warmth or ecchymosis noted. Mild stiffness and increased discomfort last few degrees of flexion and extension. No significant focal weakness or instability noted. Assessment and Plan: 1. Chronic pain of right knee (M25.561) 2. Primary osteoarthritis of right knee (M17.11) - No recent injuries since last visit with Dr. Haider. - Reviewed prior X-rays; no new imaging indicated. - Initiated series of 3 weekly intra-articular hyaluronic acid (Euflexxa) injections to right knee. - Discussed risks of injection, including infection and potentia (more content not included)... [facility] 01-29-2025 Note HNO ID: [id number] Author: SIERRA VILLALBA MA Service: ? Author Type: Boat Garnisher Type: Progress Notes Filed: 02/01/2025 14:21 Note Text: Location of pain: Right knee Symptoms started: Last year Injury: No BWC: No Seen by Dr Norris, Dr Calzada or Dr Martinez in past 3 years?: Tommy Pain at rest: 3/10 Pain at times up to : 7/10 Seen for this injury already: Tommy Previous treatment: Injections Previous imagin07/16/24 Previous surgery/fracture: No Previous injection: No Additional History related to concern: None . REVIEW OF SYSTEMS: GENERAL: Well developed, well nourished. No acute distress PAIN: Pain in the right knee for about 1 year CARDIOVASCULAR: Negative for chest pain, leg swelling and palpations. MSK: Negative for joint swelling SKIN: Negative for lesions, rash, itching, metal sensitivity NEURO: Negative for seizure, trauma, numbness/tingling of extremities. ENDOCRINE: Positive for diabetic associated symptoms HEMATOLOGY: Negative for excessive bleeding, clots, bleeding disorders. [facility] 01-23-2025 Note HNO ID: [id number] Author: YANNA FELIZ RD Service: ? Author Type: Registered Dietitian Type: Progress Notes Filed: 01/23/2025 12:57 Note Text: [facility] Nutrition Therapy: Virtual Consult - Re-assessment I have communicated my name and active licensure. The patient?s identity and physical location were verified at the time of this visit. Either the patient or their legal field representative has been informed of the risks and benefits of -- and alternatives to -- treatment through a remote evaluation and consents to proceed with the evaluation remotely. Nutrition Diagnosis: Behavioral-Environmental: Food and nutrition related knowledge deficit, related to, prior exposure to incompatible information, as evidenced by verbalizes incomplete information RECOMMENDED MALNUTRITION DIAGNOSIS: NO MALNUTRITION IDENTIFIED NUTRITION CARE PLAN: Nutrition Intervention 01/23/2025: 1. Eat breakfast within the first 1-2 hours of waking, go no more than 4-6 hours between meals, and do not skip meals 2. Continue to choose 2-3 carb choices or 30-45 grams of carbohydrate per meal *Include protein source with all meals 3. Choose up to 15 grams of carbohydrate as snack, always pair with protein *Choose vegetable or protein based snacks most often: -hard boiled egg -nuts -natural nut butter -low-fat cottage cheese -string cheese -raw veg w/ hummus, nut butter 4. Choose whole grain starches with at least 2.5g fiber per serving -original oatmeal, whole wheat bread, brown rice, wheat pasta 5. Aim for at least 64 ounces of Zero calorie fluid per day. -Stop drinking fruit juice, okay to have low sodium vegetable juice Exercise Goal: Continue 40 minute walk 2-3 days per week and weekly senior exercise class Nutrition Monitoring AND Evaluation: 30-45g carb per meal, up 50 15g carb per snack Need for Follow up: PRN PROGRESS: Interval History: Presents with 3lb weight loss since initial visit 2 months ago. Since last visit she reports she is more conscious about count carb intake, she started using a CGM 1 month ago-reports average BS of 113mg/dL, which is improvement since September. Diet recall reveals she has reduced intake of added sugar by making healthier choices and substitutions which has helped lower her average BS. Fluid intake includes less added sugar, choosing vegetable juice more than fruit juice, but still some fruit juice. Physical activity has increased, she is going for planned walks 2-3 days per week in addition to weekly exercise class. Nutrition Intervention 11/20/24 1. Eat breakfast within the first 1-2 hours of waking, go no more than 4-6 hours between meals, and do not skip meals 2. Choose 2-3 carb choices or 30-45 grams of carbohydrate per meal *Include protein source with all meals 3. Choose up to 15 grams of carbohydrate as snack, always pair with protein *Choose vegetable or protein based snacks most often: -hard boiled egg -nuts -natural nut butter -low-fat cottage cheese -0%/non-fat Taiwanese yogurt -string cheese -jerky -raw veg w/ hummus, nut butter 4. Choose whole grain starches with at least 2.5g fiber per serving -original oatmeal, whole wheat bread, brown rice, wheat pasta 5. For meal replacement shake recommend: Choose protein shake with <200 calories, at least 15g protein, <10g carbohydrate: -Ensure Max, Glucerna, Premier Protein, Orgain Clean Protein, Slimfast High Protein, Atkins, Fairlife Core Power, Text A Cab Nutrition Plan 6. Aim for at least 64 ounces of Zero calorie fluid per day. -Stop drinking fruit juice, okay to have low sodium vegetable juice -Recommend making iced tea with Splenda and/or lemon juice Exercise Goal: Aim for 10 minute walk after meals to help lower BS levels. Actions to implement interventions: -using less added salt -switch to Splenda in iced tea -switched to original oatmeal, reg cheerios instead of honey nut Diet History: Wakes at 7-8am Breakfast - 10a-12p-1/2 cup oatmeal w/ peach OR 1 cup Cheerios w/ 2%, drinks veg or fruit juice Snack - sometimes cottage cheese Lunch - 0-6ch-Llofdq Max + apple or PB on WW (12g carb per slice) + apple Snack - none Dinner - 5:44-8le-ndtuuel/fish/ground beef + carrots/zucchini/onion/salad +/- potato/brown rice -Tuesday-[place] [employer] Snack - sometimes popcorn or marco a chip granola bar Beverages - 1 cup decaf coffee w/ Splenda, powdered cream; water, home made iced tea w/ Splenda; V8 juice, fruit juice Alcohol- none Vitamins/Supplements - see med list Activity: Activities of Daily Living: Active 25% of the day. 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 [facility] 01-09-2025 Note HNO ID: [id number] Author: SHARMILA FERNANDEZ APRN.MULTIPLE SLIDE OPERATOR Service: ? Author Type: Nurse Practitioner Type: Progress Notes Filed: 01/09/2025 14:03 Note Text: [facility] [place] [facility] Today's Date: 11/12/2024 Name: Akila De Los Santos : 1945 Purpose: Follow-up Patient Evaluation - This is an established patient, returning today for continued evaluation and management of the chief complaint noted below Chief complaint: back and hip pain Pertinent Past Medical History: asthma, DM2, PAD, TIA Pertinent Past Surgeries: none Plan at last visit: (Seen on 11/18/24 by Marcial Cruz CNP) She stated no pain reduction following completion of left greater trochanter bursa injection on 10/15/2024. She denied any recent imaging studies of her hips. She stated that she continues to note benefit from taking her pregabalin and her tramadol and reduction of pain and maintenance of her functional status in order to continue to be able to perform her activities of daily living and is requesting refills for these medications today. She is wondering about treatment options for her left hip pain and would like to discuss today as well. Interval History: Overall pain and functional disability since last visit: Worse New Complaints since last visit: Yes Current Pain Medications: Neuropathics: Lyrica 50 mg TID NSAIDS: Muscle Relaxants: Topicals: Other Prescription or OTC Pain Medications: Tylenol Opioids (when applicable): Tramadol 50 mg daily as needed Anti-depressants or Mood-Stabilizers: Celexa Anti-Coagulants: None 07/18/2023 10/10/2023 01/02/2024 03/05/2024 04/27/2024 09/04/2024 11/12/2024 AG SPINE COMBINATION Questionnaire URINE DRUG SCREEN URINE DRUG SCREEN URINE DRUG SCREEN URINE DRUG SCREEN URINE DRUG SCREEN URINE DRUG SCREEN URINE DRUG SCREEN Completed Date 07/18/2023 10/10/2023 01/02/2024 03/05/2024 04/27/2024 09/04/2024 11/12/2024 Questionnaire NA/OIC NA/OIC NA/OIC NA/OIC Completed Date 07/18/2023 01/02/2024 03/05/2024 09/04/2024 Comments AMALIA today Questionnaire Opiod Risk Tool Completed Date 04/27/2024 MEDICATION NAME tramadol STRENGTH 50 LAST FILL DATE 01/02/2025 DATE LAST DOSE TAKEN 01/08/25 (800pm) QUANTITY FILLED 30 QUANTITY REMAINING 27 (All drug screens are appropriate unless indicated otherwise) Notable Events During Course of Treatment: N/A Treatment History: PAIN PROCEDURES: DATE PROCEDURE IMPROVEMENT 12/19/24 L intra articular hip 30% 10/15/24 L GTB CI under US 0% 06/11/24 right TFESI S1 80% 11/16/23 Caudal 50-80% 08/09/2022 Bilat SI Joint 85% (01/21/2023 ) 02/01/2022 Caudal CHAZ 70% x 7 months 11/26/2021 Bilat SI Joint 85% x nearly 6 months 04/07/2021 Bilat SI Joint 90% x 6 months Data Reviewed Today: Allergies: ALLERGIES Allergen Reactions Aspirin Shortness of Breath Lisinopril Swelling Latex Rash Penicillins Hives, Rash Sulfamethoxazole Hives Trileptal [Oxcarbaz* Other: See Comments Balance Problems after taking for a few days Social History Tobacco Use Smoking status: Former Types: Cigarettes Smokeless tobacco: Never Vaping Use Vaping status: Never Used Substance Use Topics Alcohol use: Never Drug use: Never 01/06/2025 01/07/2025 INTAKE PAIN ASSESSMENT Are you having pain associated with your visit today? No Yes, Provider notified No Pain Scales Verbal (Numeric Rating or Visual Analog Scale) Pain Level 6 Pain Location Back Description Aching Duration Units Years Frequency Intermittent Intervention/Comfort measure Medication;Heat;Relaxation Compliance: PDMP website checked and validated on 01/09/2025 by Sharmila Fernandez APRN.MULTIPLE SLIDE OPERATOR All prescriptions have been APPROPRIATELY filled. No suspicious activity was identified. 07/18/2023 10/10/2023 01/02/2024 03/05/2024 04/27/2024 09/04/2024 11/12/2024 AG SPINE COMBINATION Questionnaire URINE DRUG SCREEN URINE DRUG SCREEN URINE DRUG SCREEN URINE DRUG SCREEN URINE DRUG SCREEN URINE DRUG SCREEN URINE DRUG SCREEN Completed Date 07/18/2023 10/10/2023 01/02/2024 03/05/2024 04/27/2024 09/04/2024 11/12/2024 Questionnaire NA/OIC NA/OIC NA/OIC NA/OIC Completed Date 07/18/2023 01/02/2024 03/05/2024 09/04/2024 Comments AMALIA today Questionnaire Opiod Risk Tool Completed Date 04/27/2024 (All drug screens are appropriate unless indicated otherwise) Compliance: PDMP website checked and validated on 01/09/2025 by Sharmila Fernandez APRN.MULTIPLE SLIDE OPERATOR All prescriptions have been APPROPRIATELY filled. No suspicious activity was identified. Risk Assessment: ISA-7: 11/19/2022 01/02/2024 05/04/2024 ISA - 7 SCORES Score 0 1 6 (0-4 (more content not included)... [facility] 01-09-2025 Note HNO ID: [id number] Author: RADHA GARCIA MA Service: ? Author Type: Boat Garnisher Type: Progress Notes Filed: 01/09/2025 14:03 Note Text: Review of Systems Constitutional: Positive for activity change. Negative for chills, fever and unexpected weight change. Gastrointestinal: Negative for bowel retention or incontinence Genitourinary: Negative for difficulty urinating. Negative for bladder retention or incontinence Musculoskeletal: Positive for back pain, gait problem, joint swelling, myalgias, neck pain and neck stiffness. Negative for arthralgias. Neurological: Negative for weakness, numbness and headaches. Psychiatric/Behavioral: Negative for dysphoric mood, sleep disturbance and suicidal ideas. The patient is not nervous/anxious. [facility] 01-08-2025 Telephone encounter Note Submitted request for authorization through [facility]/[employer] Review in progress Request tracking ID# [id number] Thank you Jean Paul Barone [employer] [facility] 01-08-2025 Miscellaneous Notes Submitted request for authorization through [facility]/[employer] Review in progress Request tracking ID# [id number] Thank you Jean Paul Dempsey documented in this encounter [facility] 01-07-2025 Note HNO ID: [id number] Author: BETTY BUENO MD Service: ? Author Type: Physician Type: Progress Notes Filed: 01/13/2025 21:29 Note Text: kAila De Los Santos is a 79 year old female here for a Medicare wellness visit. Medicare Health Risk Assessment General Health Fair Exercise: Minutes/Day 60 min class q Sat morning chair exercise). And walking. Exercise: Days/Week 2 days Alcohol: Daily Use Never Alcohol: Drinks/Day Patient does not drink Alcohol: 6 or more drinks Never Feel off balance No Concerns: Teeth/Dentures No Concerns: Sexual function No Troubled by feelings None of the above Frequency: Eating healthy diet Nearly every day ADLs requiring help Housework Safety precautions in home/vehicle Yes Smoke, vape, chews tobacco No Difficulty hearing No Difficulty seeing Yes Current Providers Specialists: I have reviewed specialist-related care of the patient in the medical record. Current care team: Patient Care Team: Betty Bueno MD as PCP - General (Family Medicine) Podiatry: in [place], Dr. Gonzalez ENT in [place]: Fabio Pain Mgt: Nicolle Ophthalmology: Porfirio Medical/Family history review Reviewed and updated problem list, medical/surgical/family/social history, medications, and allergies. 4th nerve palsy Opioid use review Opioid Medications (last 90 days) 11/12/2024 00:00 Opioid Medications tramadol HCl 50 mg AT BEDTIME PRN PO -Discontinued tramadol HCl 50 mg AT BEDTIME PRN PO Details Outpatient prescription Prescribed tramadol HCl (last 90 days) Does patient have risk factors for opioid abuse? No Pain overview Current pain concerns and treatment plan reviewed. Patient stable on current treatment plan. Anxiety/Depression screening Recommendation: no further intervention at this time Cognitive screening Cognitive screening reviewed and No further action needed (score 3-5). Functional Observation Was the patient's Timed Up AND Go test unsteady or >= 12 seconds? No Advance Care Planning Surrogate decision maker and/or advance care plan documented Measurements BP 125/74 Pulse 65 Temp 36.3 ?C (97.3 ?F) Ht 5' 1 (1.549 m) Wt 145 lb (65.8 kg) BMI 27.40 kg/m? Vision Screening: Right: 20/40 Left: 20/ 25 Both: 20/25 Assessment/Plan Medicare annual wellness visit, subsequent (Z00.00) - Counseled on healthy diet and regular exercise - Fall avoidance information provided - Personalized prevention plan provided - Discussed need for and benefit of weight loss. BMI 27.40 kg/(m2) ASSESSMENT/PLAN: 1. Medicare annual wellness visit, subsequent - ICD9: V70.0, ICD10: Z00.00 (primary diagnosis) - Counseled on healthy diet and regular exercise - Follow up for annual exam in one year 2. 4th nerve palsy, left - ICD9: 378.53, ICD10: H49.12 - follow up with neuro-ophthalmology as referred. Betty Bueno MD [facility] 01-07-2025 Note HNO ID: [id number] Author: LAKIA SUTHERLAND LPN Service: ? Author Type: Licensed Nurse Type: Progress Notes Filed: 01/13/2025 21:29 Note Text: Patient assessment done with a timed up and go test. Timed up AND Go was completed by patient in 10 seconds. Nurse did not observe any gait or postural instabilities at this time. Lakia Sutherland LPN [facility] 12-21-2024 Telephone encounter Note Attempted to call patient to follow-up from procedure, no answer. Message left to return call with any questions or concerns. Abena Davidson LPN [facility] 12-21-2024 Miscellaneous Notes Attempted to call patient to follow-up from procedure, no answer. Message left to return call with any questions or concerns. Abena Davidson LPN documented in this encounter [facility] 12-19-2024 Note HNO ID: [id number] Author: VANESSA MUNOZ LPN Service: ? Author Type: Licensed Nurse Type: Progress Notes Filed: 12/19/2024 18:47 Note Text: Order has been placed in the patient's chart with the following parameters for discharge from the physician: Patient is alert and oriented Vitals: Diastolic/Systolic +/- 20mmHg Respirations: 12-18 Pulse: 60-100 SpO2 is greater than or equal to 90% Patient has no nausea or vomiting Patient has no dizziness Pain level is +/- 2 from initial evaluation Dressing, dry and intact with no evidence of bleeding Criteria has been met, patient is okay to be discharged per the physician. Physician has gone in and evaluated the patient. Dressing dry and intact. No drainage noted. The patient denies nausea, numbness, tingling, weakness, shortness of breath, dizziness, or headache. Pain level 0/10. Vital signs within normal limits. Patient denied needing walked out by clinical staff and denied needing a wheelchair. Patient given discharge instructions and sent to transportation via ambulatory method. Patient left in good condition. [facility] 12-19-2024 History of Present illness Narrative Order has been placed in the patient's chart with the following parameters for discharge from the physician: Patient is alert and oriented Vitals: Diastolic/Systolic +/- 20mmHg Respirations: 12-18 Pulse: 60-100 SpO2 is greater than or equal to 90% Patient has no nausea or vomiting Patient has no dizziness Pain level is +/- 2 from initial evaluation Dressing, dry and intact with no evidence of bleeding Criteria has been met, patient is okay to be discharged per the physician. Physician has gone in and evaluated the patient. Dressing dry and intact. No drainage noted. The patient denies nausea, numbness, tingling, weakness, shortness of breath, dizziness, or headache. Pain level 0/10. Vital signs within normal limits. Patient denied needing walked out by clinical staff and denied needing a wheelchair. Patient given discharge instructions and sent to transportation via ambulatory method. Patient left in good condition. [facility] Date: 12/19/2024 Patient name: Akila De Los Santos Physician performing procedure: Bo Valverde MD, PhD Procedure: Intra-articular Hip injection under fluoroscopic and ultrasound guidance Levels Treated: Left Injectate: A total of 5cc, consisting of 1cc of Depo-medrol (40mg/cc) and 4cc of 2% Lidocaine Improvement after today's procedure: as per nursing report Diagnosis: (M16.12) Primary osteoarthritis of left hip (primary encounter diagnosis) Comments: None HPI: Akila De Los Santos is an 79 year old FEMALE who presents today for an elective intra-articular hip injection. Patient otherwise denies fevers, chills, weakness, saddle anesthesia, bowel or bladder incontinence or recent antibiotic or anticoagulant use. Review of Systems: Pertinent Positives: MSK: pain in the region being treated Neuro: No weakness or numbness in the region being treated Skin: Negative (No itching) Eyes: Negative (No blurred or double vision) Respiratory: Negative (No Cough, [id number], Dyspnea on exertion, wheezing) Cardiovascular: Negative (No Chest Pain, Tightness, Pressure, Palpitations) Gastrointestinal: Negative (No Abdominal pain, Nausea, Vomiting, Constipation, Diarrhea) Genitourinary: Negative (No dysuria) Hematologic: Negative (No bleeding, bruising) OB: is Denied or Not Applicable Endocrine: Negative (No hot/cold intolerance) Psychiatric: Negative (No depression, anxiety or suicidal ideation) ALLERGIES Allergen Reactions Aspirin Shortness of Breath Lisinopril Swelling Latex Rash Penicillins Hives, Rash Sulfamethoxazole Hives Trileptal [Oxcarbaz* Other: See Comments Balance Problems after taking for a few days Current Outpatient Medications on File Prior to Visit Medication Sig primidone (MYSOLINE) 50 mg tablet TAKE 1 TABLET BY MOUTH ONCE DAILY AT BEDTIME amLODIPine (NORVASC) 10 mg tablet Take 1 tablet by mouth once daily potassium chloride 20 mEq TbER Take 2 tablets by mouth twice daily traMADol (ULTRAM) 50 mg tablet Take 1 tablet by mouth at bedtime as needed for pain for up to 60 days. pregabalin (LYRICA) 75 mg capsule Take 1 capsule by mouth three times a day for 180 days. metFORMIN ER (GLUCOPHAGE XR) 500 mg 24 hr tablet Take 2 tablets by mouth daily with breakfast. valACYclovir (VALTREX) 1 gram tablet Take 1 tablet by mouth once daily rosuvastatin (CRESTOR) 10 mg tablet TAKE 1 TABLET BY MOUTH ONCE DAILY AT BEDTIME solifenacin (VESICARE) 5 mg tablet Take 1 tablet by mouth once daily montelukast (SINGULAIR) 10 mg tablet TAKE 1 TABLET BY MOUTH ONCE DAILY AT BEDTIME indapamide (LOZOL) 2.5 mg tablet Take 1 tablet by mouth once daily losartan (COZAAR) 100 mg tablet Take 1 tablet by mouth once daily. citalopram (CELEXA) 20 mg tablet Take 1 tablet by mouth once daily fluticasone-salmeterol (WIXELA INHUB) 500-50 mcg/dose dsdv Inhale 1 Puff as instructed two times a day. albuterol HFA (VENTOLIN HFA) 90 mcg/actuation inhaler Inhale 2 Puffs as instructed every 4 hours as needed for wheezing/shortness of breath. ascorbic acid, vitamin C, (VITAMIN C) 500 mg tablet 1 tab(s) orally once a day for 30 day(s) betamethasone dipropionate 0.05 % ointment Apply to affected area twice daily. No current facility-administered medications on file prior to visit. PAST MEDICAL HISTORY Diagnosis Date Asthma (HCC) Diabetes mellitus (HCC) DJD (degenerative joint disease) Left hand pain Osteoarthritis of multiple joints PAD (peripheral artery disease) TIA (transient ischemic attack) PAST SURGICAL HISTORY Procedure Laterality Date CATARACT EXTRACTION HX Left 11/2016 CATARACT EXTRACTION HX Right 11/2018 TOTAL ABDOM HYSTERECTOMY FAMILY HISTORY Problem Relation Age of Onset Blindness Maternal Grandmother SOCIAL HISTORY[1] Attestation Information obtained by others were confirmed and edited as necessary on 12/19/2024 by Bo Valverde MD, PhD. Objective Exam: Vitals: As per nursing documentation Constitutional: Normal Appearance, Oriented to Time, Place and Person Head: No lacerations, no external signs of trauma Eyes: Conjunctiva clear. No discharge from the eyes Cardiovascular: Appears well-perfused Pulmonary: Non-labored respirations Abdominal: Non-distended Skin: No visible rashes or ecchymosis Psychiatric: Mood appropriate for given condition Neurological: no focal deficits, gross movements are limited by pain, but otherwise unremarkable Data Reviewed: Nursing note and vitals reviewed. Additional imaging reviewed as appropriate Assessment and Plan: We discussed their current plan and the pathology responsible for the patient's pain. Specific counseling related to the procedure was provided regarding the risks, benefits and alternatives. The patient wishes to proceed with the plan as noted above. Encounter Diagnosis ICD-10-CM 1. Primary osteoarthritis of left hip M16.12 DRAIN/INJECT LARGE JOINT/BURSA lidocaine 10 mg/mL (1 %) 100 mg injection (XYLOCAINE) lidocaine 20 mg/mL (2 %) 200 mg injection (XYLOCAINE) methylPREDNISolone acetate 40 mg injection (DEPO-Medrol) iohexol 300 mg injection (OMNIPAQUE 300) GLUCOSE, BLOOD (POC) Time out to confirm patient name, date of , procedure site, laterality, and allergies performed by physician. Please see nursing note for exact times (time out, procedure start, procedure end). [place] protocol documentation / Pre-Procedure checklist: Unless stated otherwise in the procedure note, the risks include but are not limited to infection, allergic reaction, increased pain, lack of therapeutic benefit, steroid reaction, nerve damage, paralysis, stroke, epidural hematoma, syncope, headache, respiratory or cardiac arrest, pneumothorax, and scar formation Time Out was led by the physician in the procedure room, with the patient and all staff present and participating The following information was verified: name, date of , procedure site (marked), laterality, anticoagulants and allergies [place] protocol documentation / Pre-Procedure Checklist: Consent: Obtained in writing prior to procedure Unless stated otherwise in the procedure note, the risks include but are not limited to infection, allergic reaction, increased pain, lack of therapeutic benefit, steroid reaction, nerve damage, paralysis, stroke, epidural hematoma, syncope, headache, respiratory or cardiac arrest, pneumothorax, and scar formation Once the plan was agreed upon, the patient gave written consent to proceed and was transported into the procedure room Surgical/Procedure pause or Time Out : Time Out was led by the physician in the procedure room, with the patient and all staff present and participating The following information was verified during the Time Out process: Patient name, patient date of , procedure site (marked), laterality, anticoagulants and allergies Anticoagulants: reviewed with patient, notable for: none DESCRIPTION OF PROCEDURE: The patient was brought to the procedure room and placed in the supine position on the fluoroscopy table. The anterior aspect of the above noted hip joint was prepped and draped in the usual sterile fashion using Chloroprep and a fenestrated drape/blue towels. The fluoroscope was brought into the field and an oblique image was obtained to identify the above noted hip joint(s). After preliminary films were obtained, the femoral artery was visualized under Ultrasound guidance at the level of the groin and a tai was placed 2 cm lateral and 2 cm distal to this point. The skin and subcutaneous tissues overlying the proposed needle entry site(s) was then anesthetized with 1-2 ml of 1% lidocaine using a 25G 1.5inch needle. A 25-gauge 3.5-inch spinal needle was then placed through the skin and advanced superiorly towards the hip joint under AP fluoroscopy until contact was made with bone at the junction of the medial aspect of the femoral head and neck . Correct final needle position was confirmed with visualization of the needle into the acetabulofemoral joint capsule. After negative aspiration, 1-2ml of Omnipaque was administered with appropriate circumferential spread on fluoroscopic imaging. After negative aspiration, the above noted injection was administered, and the needle was withdrawn. After completion of the injection, the needle(s) were removed. The injection site(s) were cleaned and dried. A sterile dressing was applied. Please see the nursing note for exact times (time out, procedure start, procedure end). After careful removal of the needle, there was minimal bleeding. The injection site was covered with appropriate sterile dressing. The patient was noted to have tolerated the procedure well and was discharged after an appropriate period of post-procedure observation. The patient was instructed to contact us if there were any complications. The patient was advised to follow-up with the requesting physician within one to two weeks or as per their requested follow-up plan. Post procedure visit summary with written instructions was offered to the patient. Bo Valverde MD, PhD Pain Management [facility] [1] Social History Tobacco Use Smoking status: Former Types: Cigarettes Smokeless tobacco: Never Vaping Use Vaping status: Never Used Substance Use Topics Alcohol use: Never Drug use: Never Procedure to be performed: LEFT INTRA-ARTICULAR HIP INJECTION Patient was wheeled on stretcher from pre op bay to procedure room and assisted onto the procedure tablePatient s procedure was performed in an [facility] Procedure room. Pause completed at each level by provider to verify correct level and laterality placement Pressure was applied to patient s injection site(s) and bleeding was minimal. Patient had no complaint of shortness of breath, dizziness, headache, numbness, tingling, weakness or complications from procedure. Patient was assisted from the procedure table onto the stretcher and wheeled into a post op bay. Patient was advised a clinician will be to obtain another set of vitals. Time Out: 704 Confirmed patient name, date of , procedure site, laterality, and allergies Procedure Start: 707 Procedure End: 719 Review of [employer] Lead's Name: iona sunshine Are you on a blood thinner: n If yes, is a hold required: n Last dose of blood thinner: n INR Result today: n Do you require a Lovenox bridge:n Are you a diabetic:y - 90 Are you/or could you be : n Are you taking Xanax for the procedure: y Are you currently on a steroid? n Are you currently on an antibiotic: n Patient's vital signs and blood sugar (if applicable) are within acceptable limits for today's procedure. Anticoagulant held appropriately per protocol (if applicable). Patient appropriate to proceed with today's procedure. Per physician, okay for patient to self-administer prescribed Xanax. Review of Systems Constitutional: Positive for activity change. Negative for chills, fever and unexpected weight change. Gastrointestinal: Negative for bowel retention or incontinence Genitourinary: Negative for difficulty urinating. Negative for bladder retention or incontinence Musculoskeletal: Positive for arthralgias, back pain, gait problem, joint swelling, neck pain and neck stiffness. Negative for myalgias. Neurological: Negative for weakness, numbness and headaches. Psychiatric/Behavioral: Negative for dysphoric mood, sleep disturbance and suicidal ideas. The patient is not nervous/anxious. documented in this encounter [facility] 12-19-2024 Instructions Vanessa Munoz LPN - 12/19/2024 7:21 AM EDT PROCEDURE DISCHARGE INSTRUCTIONS 12/19/2024 Akila De Los Santos 1945 Physician: Bo Valverde MD, PhD Procedure: Shoulder/Knee/Sacroiliac/Hip joint injection Post Procedure Instructions: If sedation given, no driving the day of the procedure., Rest the day of the procedure., You may resume normal activities the day after the procedure, as tolerated., Pain should gradually subside over the next 2-3 weeks., Avoid movements that may aggravate pain., Apply cold compresses to injection site if needed., If medically acceptable, take over the counter anti-inflammatories such as ibuprofen or Aleve if needed for post procedure discomfort., and No hot baths, hot tubs or hot compresses for 24 hours. If you have any of the following signs or symptoms, please call our office at Fever and/or chills Swelling and/or drainage from injection site New pain that is different than your normal pain (other than soreness at the site of the procedure) Stiff neck Shortness of breath Severe increase in pain Motor dysfunctions, such as difficulty walking, bowel or bladder dysfunction and/or incontinence Headache that is severe, light sensitive or develops when changing positions (positional headache) Nausea and/or vomiting accompanied by headache that started 24-48 hours after the procedure If you have any emergent concerns, please call 911 or go to your local emergency room. Please also contact our office to let us know you will be seeking emergency care and why. documented in this encounter [facility] 12-19-2024 Note HNO ID: [id number] Author: BO VALVERDE MD, PhD Service: ? Author Type: Physician Type: Progress Notes Filed: 12/19/2024 18:47 Note Text: [facility] Date: 12/19/2024 Patient name: Akila De Los Santos Physician performing procedure: Bo Valverde MD, PhD Procedure: Intra-articular Hip injection under fluoroscopic and ultrasound guidance Levels Treated: Left Injectate: A total of 5cc, consisting of 1cc of Depo-medrol (40mg/cc) and 4cc of 2% Lidocaine Improvement after today's procedure: as per nursing report Diagnosis: (M16.12) Primary osteoarthritis of left hip (primary encounter diagnosis) Comments: None HPI: Akila De Los Santos is an 79 year old FEMALE who presents today for an elective intra-articular hip injection. Patient otherwise denies fevers, chills, weakness, saddle anesthesia, bowel or bladder incontinence or recent antibiotic or anticoagulant use. Review of Systems: Pertinent Positives: MSK: pain in the region being treated Neuro: No weakness or numbness in the region being treated Skin: Negative (No itching) Eyes: Negative (No blurred or double vision) Respiratory: Negative (No Cough, [id number], Dyspnea on exertion, wheezing) Cardiovascular: Negative (No Chest Pain, Tightness, Pressure, Palpitations) Gastrointestinal: Negative (No Abdominal pain, Nausea, Vomiting, Constipation, Diarrhea) Genitourinary: Negative (No dysuria) Hematologic: Negative (No bleeding, bruising) OB: is Denied or Not Applicable Endocrine: Negative (No hot/cold intolerance) Psychiatric: Negative (No depression, anxiety or suicidal ideation) ALLERGIES Allergen Reactions Aspirin Shortness of Breath Lisinopril Swelling Latex Rash Penicillins Hives, Rash Sulfamethoxazole Hives Trileptal [Oxcarbaz* Other: See Comments Balance Problems after taking for a few days Current Outpatient Medications on File Prior to Visit Medication Sig primidone (MYSOLINE) 50 mg tablet TAKE 1 TABLET BY MOUTH ONCE DAILY AT BEDTIME amLODIPine (NORVASC) 10 mg tablet Take 1 tablet by mouth once daily potassium chloride 20 mEq TbER Take 2 tablets by mouth twice daily traMADol (ULTRAM) 50 mg tablet Take 1 tablet by mouth at bedtime as needed for pain for up to 60 days. pregabalin (LYRICA) 75 mg capsule Take 1 capsule by mouth three times a day for 180 days. metFORMIN ER (GLUCOPHAGE XR) 500 mg 24 hr tablet Take 2 tablets by mouth daily with breakfast. valACYclovir (VALTREX) 1 gram tablet Take 1 tablet by mouth once daily rosuvastatin (CRESTOR) 10 mg tablet TAKE 1 TABLET BY MOUTH ONCE DAILY AT BEDTIME solifenacin (VESICARE) 5 mg tablet Take 1 tablet by mouth once daily montelukast (SINGULAIR) 10 mg tablet TAKE 1 TABLET BY MOUTH ONCE DAILY AT BEDTIME indapamide (LOZOL) 2.5 mg tablet Take 1 tablet by mouth once daily losartan (COZAAR) 100 mg tablet Take 1 tablet by mouth once daily. citalopram (CELEXA) 20 mg tablet Take 1 tablet by mouth once daily fluticasone-salmeterol (WIXELA INHUB) 500-50 mcg/dose dsdv Inhale 1 Puff as instructed two times a day. albuterol HFA (VENTOLIN HFA) 90 mcg/actuation inhaler Inhale 2 Puffs as instructed every 4 hours as needed for wheezing/shortness of breath. ascorbic acid, vitamin C, (VITAMIN C) 500 mg tablet 1 tab(s) orally once a day for 30 day(s) betamethasone dipropionate 0.05 % ointment Apply to affected area twice daily. No current facility-administered medications on file prior to visit. PAST MEDICAL HISTORY Diagnosis Date Asthma (HCC) Diabetes mellitus (HCC) DJD (degenerative joint disease) Left hand pain Osteoarthritis of multiple joints PAD (peripheral artery disease) TIA (transient ischemic attack) PAST SURGICAL HISTORY Procedure Laterality Date CATARACT EXTRACTION HX Left 11/2016 CATARACT EXTRACTION HX Right 11/2018 TOTAL ABDOM HYSTERECTOMY FAMILY HISTORY Problem Relation Age of Onset Blindness Maternal Grandmother SOCIAL HISTORY[1] Attestation Information obtained by others were confirmed and edited as necessary on 12/19/2024 by Bo Vlaverde MD, PhD. Objective Exam: Vitals: As per nursing documentation Constitutional: Normal Appearance, Oriented to Time, Place and Person Head: No lacerations, no external signs of trauma Eyes: Conjunctiva clear. No discharge from the eyes Cardiovascular: Appears well-perfused Pulmonary: Non-labored respirations Abdominal: Non-distended Skin: No visible rashes or ecchymosis Psychiatric: Mood appropriate for given condition Neurological: no focal deficits, gross movements are limited by pain, but otherwise unremarkable Data Reviewed: Nursing note and vitals reviewed. Additional imaging reviewed as appropriate Assessment and Plan: We discussed their current plan and the pathology responsible for the patient's pain. Specific counseling related to the procedure was provided regardi (more content not included)... [facility] 12-19-2024 Note HNO ID: [id number] Author: PATRICIA BLANDON LPN Service: ? Author Type: Licensed Nurse Type: Progress Notes Filed: 12/19/2024 18:47 Note Text: Procedure to be performed: LEFT INTRA-ARTICULAR HIP INJECTION Patient was wheeled on stretcher from pre op bay to procedure room and assisted onto the procedure tablePatient?s procedure was performed in an [facility] Procedure room. Pause completed at each level by provider to verify correct level and laterality placement Pressure was applied to patient?s injection site(s) and bleeding was minimal. Patient had no complaint of shortness of breath, dizziness, headache, numbness, tingling, weakness or complications from procedure. Patient was assisted from the procedure table onto the stretcher and wheeled into a post op bay. Patient was advised a clinician will be to obtain another set of vitals. Time Out: 704 Confirmed patient name, date of , procedure site, laterality, and allergies Procedure Start: 707 Procedure End: 719 Review of Systems [facility] 12-19-2024 Note HNO ID: [id number] Author: VANESSA MUNOZ LPN Service: ? Author Type: Licensed Nurse Type: Progress Notes Filed: 12/19/2024 18:47 Note Text: Energy Projects Lead's Name: iona sunshine Are you on a blood thinner: n If yes, is a hold required: n Last dose of blood thinner: n INR Result today: n Do you require a Lovenox bridge:n Are you a diabetic:y - 90 Are you/or could you be : n Are you taking Xanax for the procedure: y Are you currently on a steroid? n Are you currently on an antibiotic: n Patient's vital signs and blood sugar (if applicable) are within acceptable limits for today's procedure. Anticoagulant held appropriately per protocol (if applicable). Patient appropriate to proceed with today's procedure. Per physician, okay for patient to self-administer prescribed Xanax. Review of Systems Constitutional: Positive for activity change. Negative for chills, fever and unexpected weight change. Gastrointestinal: Negative for bowel retention or incontinence Genitourinary: Negative for difficulty urinating. Negative for bladder retention or incontinence Musculoskeletal: Positive for arthralgias, back pain, gait problem, joint swelling, neck pain and neck stiffness. Negative for myalgias. Neurological: Negative for weakness, numbness and headaches. Psychiatric/Behavioral: Negative for dysphoric mood, sleep disturbance and suicidal ideas. The patient is not nervous/anxious. [facility] 12-17-2024 History of Present illness Narrative Radiology Service Progress Note DATE OF SERVICE: December 17, 2024 TIME: 1:49 PM PATIENT IDENTITY VERIFICATION COMPLETED USING TWO (2) STANDARD IDENTIFIERS: Name and Date of confirmed by patient verbally and Name and Date of confirmed by identification band. FALL SCREENING: Has the patient had 2 falls in the last year or 1 fall with injury or currently using an Ambulatory Assistive Device (Walker, Cane, Wheelchair, Crutches, etc.)? No PATIENT GENDER DATA: Assigned female at . status: : No status: NO. PATIENT RELEVANT IMPLANT DATA REVIEWED: Yes PATIENT PRESENTS WITH AN IMPLANTABLE OR ATTACHED SET AND EXHIBIT DESIGNER: No ALLERGIES: Reviewed and unchanged CONTRAST ALLERGY: NO. EXAM: MRI - CONTRAST TYPE: GROUP II PERIPHERAL IV DATA: Ambulatory: A peripheral IV was started in the Right hand with a Angio cath: 24 gauge. RADIOLOGY DEPARTMENT: MR; Exam(s) Completed: Head: Cranial Nerve, CN II-. Aromatherapy Administered: No SIGNATURE: BRADLEY Starr PATIENT NAME: Akila De Los Santos DATE: December 17, 2024 TIME: 1:49 PM documented in this encounter [facility] 12-17-2024 Note HNO ID: [id number] Author: AMANDA STRINGER MRI Tech Service: Radiology Author Type: Technologist Type: Progress Notes Filed: 12/17/2024 14:05 Note Text: Radiology Service Progress Note DATE OF SERVICE: December 17, 2024 TIME: 1:49 PM PATIENT IDENTITY VERIFICATION COMPLETED USING TWO (2) STANDARD IDENTIFIERS: Name and Date of confirmed by patient verbally and Name and Date of confirmed by identification band. FALL SCREENING: Has the patient had 2 falls in the last year or 1 fall with injury or currently using an Ambulatory Assistive Device (Walker, Cane, Wheelchair, Crutches, etc.)? No PATIENT GENDER DATA: Assigned female at . status: : No status: NO. PATIENT RELEVANT IMPLANT DATA REVIEWED: Yes PATIENT PRESENTS WITH AN IMPLANTABLE OR ATTACHED SET AND EXHIBIT DESIGNER: No ALLERGIES: Reviewed and unchanged CONTRAST ALLERGY: NO. EXAM: MRI - CONTRAST TYPE: GROUP II PERIPHERAL IV DATA: Ambulatory: A peripheral IV was started in the Right hand with a Angio cath: 24 gauge. RADIOLOGY DEPARTMENT: MR; Exam(s) Completed: Head: Cranial Nerve, CN II-. Aromatherapy Administered: No SIGNATURE: BRADLEY Starr PATIENT NAME: Akila De Los Santos DATE: December 17, 2024 TIME: 1:49 PM [facility] 12-05-2024 Telephone encounter Note duplicate [facility] 12-05-2024 Miscellaneous Notes duplicate documented in this encounter [facility] 11-20-2024 Note Addended by: BETTY BUENO on: 11/20/2024 04:45 PM Modules accepted: Orders [facility] 11-20-2024 Miscellaneous Notes Addended by: BETTY BUENO on: 11/20/2024 04:45 PM Modules accepted: Orders Sent in some mucinex-DM, but any OTC Coricidin HBP would probably be just as helpful. If hr symptoms are more nasal congestion then she can do sudafed for a few days but it can raise blood pressure. If any fever and myalgias, consider home COVID-19 testing and if not improving. Always willing to see her for an appointment if she remains concerned or is not getting better. Betty Bueno MD Patient called the office requesting medication for cough complains of wheezing and a head cold. Patient denies fever please advise. Jessica Martinez LPN documented in this encounter [facility] 11-20-2024 Telephone encounter Note Sent in some mucinex-DM, but any OTC Coricidin HBP would probably be just as helpful. If hr symptoms are more nasal congestion then she can do sudafed for a few days but it can raise blood pressure. If any fever and myalgias, consider home COVID-19 testing and if not improving. Always willing to see her for an appointment if she remains concerned or is not getting better. Betty Bueno MD [facility] 11-20-2024 Telephone encounter Note Patient called the office requesting medication for cough complains of wheezing and a head cold. Patient denies fever please advise. Jessica Martinez LPN [facility] 11-20-2024 Note HNO ID: [id number] Author: YANNA FELIZ RD Service: ? Author Type: Registered Dietitian Type: Progress Notes Filed: 11/20/2024 12:09 Note Text: [facility] Nutrition Therapy: Virtual Consult - Initial Assessment I have communicated my name and active licensure. The patient?s identity and physical location were verified at the time of this visit. Either the patient or their legal field representative has been informed of the risks and benefits of -- and alternatives to -- treatment through a remote evaluation and consents to proceed with the evaluation remotely. Nutrition Diagnosis: Inconsistent carbohydrate intake, related to, DM and food and nutrition related knowledge deficit, as evidenced by diet recall, elevated hemoglobin A1c. RECOMMENDED MALNUTRITION DIAGNOSIS: NO MALNUTRITION IDENTIFIED NUTRITION CARE PLAN Nutrition Intervention 11/20/2024: 1. Eat breakfast within the first 1-2 hours of waking, go no more than 4-6 hours between meals, and do not skip meals 2. Choose 2-3 carb choices or 30-45 grams of carbohydrate per meal *Include protein source with all meals 3. Choose up to 15 grams of carbohydrate as snack, always pair with protein *Choose vegetable or protein based snacks most often: -hard boiled egg -nuts -natural nut butter -low-fat cottage cheese -0%/non-fat Taiwanese yogurt -string cheese -jerky -raw veg w/ hummus, nut butter 4. Choose whole grain starches with at least 2.5g fiber per serving -original oatmeal, whole wheat bread, brown rice, wheat pasta 5. For meal replacement shake recommend: Choose protein shake with <200 calories, at least 15g protein, <10g carbohydrate: -Ensure Max, Glucerna, Premier Protein, Orgain Clean Protein, Slimfast High Protein, Atkins, [employer] Core Power, [employer] Nutrition Plan 6. Aim for at least 64 ounces of Zero calorie fluid per day. -Stop drinking fruit juice, okay to have low sodium vegetable juice -Recommend making iced tea with Splenda and/or lemon juice Exercise Goal: Aim for 10 minute walk after meals to help lower BS levels. Nutrition Monitoring AND Evaluation: 30-45g carb per meal, up to 15g carb per snack, A1c <8% Need for Follow up: 01/23/25 @ 12:30pm. Patient presents with uncontrolled DM2 for nutrition therapy. PMH:HTN, DJD, TIA, PAD, scoliosis. Labs reveal uncontrolled hemoglobin A1c. She is checking BS at home, reports FBS 98-132mg/dL. She is familiar with diabetic diet bc her was diabetic, she attended education classes for him, but not for herself. She is not carb counting. Diet recall reveals inconsistent and excessive carbohydrate intake with meals resulting in hyperglycemia; fair intake of fruit, vegetables and whole grains; protein intake is low with breakfast and lunch which does not support better BS. Fluid intake includes added sugar and juice which is contributing to higher BS. Physical activity level is not enough to support overall health or optimizing BS levels. Patient's symptoms are: Weight Concerns: overweight Diet History: Wakes at 7-8am Breakfast - [id number] w/ Lactaid +/- fruit or reg or apple cinnamon instant oatmeal w/ fruit, drinks juice Snack - none Lunch - [id number]-[id number] or Ensure or PB on WW + apple Snack - none Dinner - 5:35-2gz-ypdyhsv/fish/ground beef + carrots/zucchini/onion +/- potato/brown rice -beef chili -spaghetti w/ ground beef sauce Snack - sometimes apple or trail mix Beverages - 1 cup decaf coffee w/ Splenda; water, home made iced tea w/ sugar; fruit juice, Alcohol- none Vitamins/Supplements - see med list Activity: Activities of Daily Living: Active 25% of the day. 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 Resting Metabolic Rate: 1111 Malnutrition Screening Significant unintentional weight loss? No Eating less than 75% of usual intake for more than 2 weeks? No Potential Signs of Inflammation: no identifiable sources Food Insecurity: Food Insecurity Present (11/20/2024) Hunger Vital Sign Worried About Running Out of Food in the Last Year: Sometimes true Ran Out of Food in the Last Year: Sometimes true Education Materials Provided: Eating Healthy with Diabetes, Healthy You - Planning Healthy Meals, and Portion Plate Placemat READINESS TO LEARN Cognitive ability: Alert and oriented Motivation to learn: Interested Family support: Unable to assess - Family not present Instruction provided to: Patient Patient learns best by: Written Instruction - Hand-outs Verbal Instruction Factors affecting learning: None Physical limitations affecting learning: None Refer (more content not included)... [facility] 11-20-2024 History of Present illness Narrative [facility] Nutrition Therapy: Virtual Consult - Initial Assessment I have communicated my name and active licensure. The patient s identity and physical location were verified at the time of this visit. Either the patient or their legal field representative has been informed of the risks and benefits of -- and alternatives to -- treatment through a remote evaluation and consents to proceed with the evaluation remotely. Nutrition Diagnosis: Inconsistent carbohydrate intake, related to, DM and food and nutrition related knowledge deficit, as evidenced by diet recall, elevated hemoglobin A1c. RECOMMENDED MALNUTRITION DIAGNOSIS: NO MALNUTRITION IDENTIFIED NUTRITION CARE PLAN Nutrition Intervention 11/20/2024: 1. Eat breakfast within the first 1-2 hours of waking, go no more than 4-6 hours between meals, and do not skip meals 2. Choose 2-3 carb choices or 30-45 grams of carbohydrate per meal *Include protein source with all meals 3. Choose up to 15 grams of carbohydrate as snack, always pair with protein *Choose vegetable or protein based snacks most often: -hard boiled egg -nuts -natural nut butter -low-fat cottage cheese -0%/non-fat Taiwanese yogurt -string cheese -jerky -raw veg w/ hummus, nut butter 4. Choose whole grain starches with at least 2.5g fiber per serving -original oatmeal, whole wheat bread, brown rice, wheat pasta 5. For meal replacement shake recommend: Choose protein shake with <200 calories, at least 15g protein, <10g carbohydrate: -Ensure Max, Glucerna, Premier Protein, Orgain Clean Protein, Slimfast High Protein, Atkins, Red e [employer] Core Power, [employer] Nutrition Plan 6. Aim for at least 64 ounces of Zero calorie fluid per day. -Stop drinking fruit juice, okay to have low sodium vegetable juice -Recommend making iced tea with Splenda and/or lemon juice Exercise Goal: Aim for 10 minute walk after meals to help lower BS levels. Nutrition Monitoring & Evaluation: 30-45g carb per meal, up to 15g carb per snack, A1c <8% Need for Follow up: 01/23/25 @ 12:30pm. Patient presents with uncontrolled DM2 for nutrition therapy. PMH:HTN, DJD, TIA, PAD, scoliosis. Labs reveal uncontrolled hemoglobin A1c. She is checking BS at home, reports FBS 98-132mg/dL. She is familiar with diabetic diet bc her was diabetic, she attended education classes for him, but not for herself. She is not carb counting. Diet recall reveals inconsistent and excessive carbohydrate intake with meals resulting in hyperglycemia; fair intake of fruit, vegetables and whole grains; protein intake is low with breakfast and lunch which does not support better BS. Fluid intake includes added sugar and juice which is contributing to higher BS. Physical activity level is not enough to support overall health or optimizing BS levels. Patient's symptoms are: Weight Concerns: overweight Diet History: Wakes at 7-8am Breakfast - [id number] w/ Lactaid +/- fruit or reg or apple cinnamon instant oatmeal w/ fruit, drinks juice Snack - none Lunch - 9-1uv-cyjnpl or Ensure or PB on WW + apple Snack - none Dinner - 5:58-5lm-ubtheqz/fish/ground beef + carrots/zucchini/onion +/- potato/brown rice -beef chili -spaghetti w/ ground beef sauce Snack - sometimes apple or trail mix Beverages - 1 cup decaf coffee w/ Splenda; water, home made iced tea w/ sugar; fruit juice, Alcohol- none Vitamins/Supplements - see med list Activity: Activities of Daily Living: Active 25% of the day. 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 Resting Metabolic Rate: 1111 Malnutrition Screening Significant unintentional weight loss? No Eating less than 75% of usual intake for more than 2 weeks? No Potential Signs of Inflammation: no identifiable sources Food Insecurity: Food Insecurity Present (11/20/2024) Hunger Vital Sign Worried About Running Out of Food in the Last Year: Sometimes true Ran Out of Food in the Last Year: Sometimes true Education Materials Provided: Eating Healthy with Diabetes, Healthy You - Planning Healthy Meals, and Portion Plate Placemat READINESS TO LEARN Cognitive ability: Alert and oriented Motivation to learn: Interested Family support: Unable to assess - Family not present Instruction provided to: Patient Patient learns best by: Written Instruction - Hand-outs Verbal Instruction Factors affecting learning: None Physical limitations affecting learning: None Referred by: Ximena GIRALDO Billing Type: Initial Assess 2 units Total Time (mins): 32 SIGNATURE: Yanna Feliz RD PATIENT NAME: Akila De Los Santos DATE: November 20, 2024 TIME: 11:16 AM PAGER: [phone] documented in this encounter [facility] 11-19-2024 Note HNO ID: [id number] Author: ARVIND HAIDER DO Service: ? Author Type: Physician Type: Progress Notes Filed: 11/19/2024 14:05 Note Text: Date of Evaluation: 11/19/2024 Patient Name: Akila De Los Santos : 1945 Subjective Akila De Los Santos is a 79-year-old female with a history of right knee arthritis and a meniscal tear, presenting for evaluation of recurrent right knee swelling. Akila reports recurrent swelling in the right knee, which began a couple of weeks ago. She has had two previous aspirations of the knee (Bakers cyst), the most recent being in August, and the initial one in June, which included a corticosteroid injection. Akila has not engaged in physical therapy for this issue, although she did participate in physical therapy years ago for a different condition. She has been performing home exercises, but notes that some have become too painful to continue, particularly those involving knee flexion. Review of Systems Respiratory: (+) cough Musculoskeletal: (+) right knee pain, (+) right knee swelling PAST MEDICAL HISTORY Diagnosis Date Asthma (HCC) Diabetes mellitus (HCC) DJD (degenerative joint disease) Left hand pain Osteoarthritis of multiple joints PAD (peripheral artery disease) TIA (transient ischemic attack) PAST SURGICAL HISTORY Procedure Laterality Date CATARACT EXTRACTION HX Left 11/2016 CATARACT EXTRACTION HX Right 11/2018 TOTAL ABDOM HYSTERECTOMY FAMILY HISTORY Problem Relation Age of Onset Blindness Maternal Grandmother Social History Tobacco Use Smoking status: Former Types: Cigarettes Smokeless tobacco: Never Vaping Use Vaping status: Never Used Substance Use Topics Alcohol use: Never Drug use: Never Current Outpatient Medications Medication Sig ALPRAZolam 0.5 mg dissolvable tablet BRING 2 TABLETS TO PROCEDURE LOCATION ON THE DAY OF PROCEDURE, TO BE ADMINISTERED BY STAFF traMADol (ULTRAM) 50 mg tablet Take 1 tablet by mouth at bedtime as needed for pain for up to 60 days. pregabalin (LYRICA) 75 mg capsule Take 1 capsule by mouth three times a day for 180 days. metFORMIN ER (GLUCOPHAGE XR) 500 mg 24 hr tablet Take 2 tablets by mouth daily with breakfast. valACYclovir (VALTREX) 1 gram tablet Take 1 tablet by mouth once daily rosuvastatin (CRESTOR) 10 mg tablet TAKE 1 TABLET BY MOUTH ONCE DAILY AT BEDTIME solifenacin (VESICARE) 5 mg tablet Take 1 tablet by mouth once daily montelukast (SINGULAIR) 10 mg tablet TAKE 1 TABLET BY MOUTH ONCE DAILY AT BEDTIME amLODIPine (NORVASC) 10 mg tablet Take 1 tablet by mouth once daily primidone (MYSOLINE) 50 mg tablet TAKE 1 TABLET BY MOUTH ONCE DAILY AT BEDTIME indapamide (LOZOL) 2.5 mg tablet Take 1 tablet by mouth once daily losartan (COZAAR) 100 mg tablet Take 1 tablet by mouth once daily. citalopram (CELEXA) 20 mg tablet Take 1 tablet by mouth once daily potassium chloride 20 mEq TbER Take 2 tablets by mouth twice daily fluticasone-salmeterol (WIXELA INHUB) 500-50 mcg/dose dsdv Inhale 1 Puff as instructed two times a day. albuterol HFA (VENTOLIN HFA) 90 mcg/actuation inhaler Inhale 2 Puffs as instructed every 4 hours as needed for wheezing/shortness of breath. ascorbic acid, vitamin C, (VITAMIN C) 500 mg tablet 1 tab(s) orally once a day for 30 day(s) betamethasone dipropionate 0.05 % ointment Apply to affected area twice daily. No current facility-administered medications for this visit. Objective Resp 16 Ht 154.9 cm (5' 1) Wt 69.4 kg (153 lb) BMI 28.91 kg/m? Physical Exam Knee right: Appearance normal , ROM abnormal flexion 2/2 cyst, effusion none but large Bakers cyst palpated, straight leg raise: patient Able Lower extremity neuro exam: sensation to soft touch intact over the LE bilaterally. Lower extremity vascular exam: no edema over LE. Imaging - MRI of the knee: Meniscal tear and arthritic changes with a Lindsey?s cyst. Assessment AND Plan 1. 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 Previous treatments included aspiration and corticosteroid injections. Recent MRI confirmed meniscal tear and arthritis. - Performed aspiration of the cyst, removing approximately 49 mL of fluid, and administered a corticosteroid injection with Depo-Medrol to reduce inflammation. - Discussed initiating a series of three weekly hyaluronic acid injections (e.g., Euflexxa) to provide cushioning and lubrication to the knee joint. - Ordered hyaluronic acid injections; patient will be contacted by the corporate secretary to schedule appointments. - Recommended resuming physical therapy to address underlying arthritis and meniscal tear. Injection performed as detailed below: Large Joint Arthro (more content not included)... [facility] 11-19-2024 History of Present illness Narrative Associated Order(s): Large Joint Arthro/Inj: R Lindsey Cyst Post-Procedure Diagnose(s): Primary osteoarthritis of right knee; Synovial cyst of right popliteal space; 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; Chronic pain of right knee Images from the original note were not included. Date of Evaluation: 11/19/2024 Patient Name: Akila De Los Santos : 1945 Subjective Akila De Los Santos is a 79-year-old female with a history of right knee arthritis and a meniscal tear, presenting for evaluation of recurrent right knee swelling. Akila reports recurrent swelling in the right knee, which began a couple of weeks ago. She has had two previous aspirations of the knee (Bakers cyst), the most recent being in August, and the initial one in June, which included a corticosteroid injection. Akila has not engaged in physical therapy for this issue, although she did participate in physical therapy years ago for a different condition. She has been performing home exercises, but notes that some have become too painful to continue, particularly those involving knee flexion. Review of Systems Respiratory: (+) cough Musculoskeletal: (+) right knee pain, (+) right knee swelling PAST MEDICAL HISTORY Diagnosis Date Asthma (HCC) Diabetes mellitus (HCC) DJD (degenerative joint disease) Left hand pain Osteoarthritis of multiple joints PAD (peripheral artery disease) TIA (transient ischemic attack) PAST SURGICAL HISTORY Procedure Laterality Date CATARACT EXTRACTION HX Left 11/2016 CATARACT EXTRACTION HX Right 11/2018 TOTAL ABDOM HYSTERECTOMY FAMILY HISTORY Problem Relation Age of Onset Blindness Maternal Grandmother Social History Tobacco Use Smoking status: Former Types: Cigarettes Smokeless tobacco: Never Vaping Use Vaping status: Never Used Substance Use Topics Alcohol use: Never Drug use: Never Current Outpatient Medications Medication Sig ALPRAZolam 0.5 mg dissolvable tablet BRING 2 TABLETS TO PROCEDURE LOCATION ON THE DAY OF PROCEDURE, TO BE ADMINISTERED BY STAFF traMADol (ULTRAM) 50 mg tablet Take 1 tablet by mouth at bedtime as needed for pain for up to 60 days. pregabalin (LYRICA) 75 mg capsule Take 1 capsule by mouth three times a day for 180 days. metFORMIN ER (GLUCOPHAGE XR) 500 mg 24 hr tablet Take 2 tablets by mouth daily with breakfast. valACYclovir (VALTREX) 1 gram tablet Take 1 tablet by mouth once daily rosuvastatin (CRESTOR) 10 mg tablet TAKE 1 TABLET BY MOUTH ONCE DAILY AT BEDTIME solifenacin (VESICARE) 5 mg tablet Take 1 tablet by mouth once daily montelukast (SINGULAIR) 10 mg tablet TAKE 1 TABLET BY MOUTH ONCE DAILY AT BEDTIME amLODIPine (NORVASC) 10 mg tablet Take 1 tablet by mouth once daily primidone (MYSOLINE) 50 mg tablet TAKE 1 TABLET BY MOUTH ONCE DAILY AT BEDTIME indapamide (LOZOL) 2.5 mg tablet Take 1 tablet by mouth once daily losartan (COZAAR) 100 mg tablet Take 1 tablet by mouth once daily. citalopram (CELEXA) 20 mg tablet Take 1 tablet by mouth once daily potassium chloride 20 mEq TbER Take 2 tablets by mouth twice daily fluticasone-salmeterol (WIXELA INHUB) 500-50 mcg/dose dsdv Inhale 1 Puff as instructed two times a day. albuterol HFA (VENTOLIN HFA) 90 mcg/actuation inhaler Inhale 2 Puffs as instructed every 4 hours as needed for wheezing/shortness of breath. ascorbic acid, vitamin C, (VITAMIN C) 500 mg tablet 1 tab(s) orally once a day for 30 day(s) betamethasone dipropionate 0.05 % ointment Apply to affected area twice daily. No current facility-administered medications for this visit. Objective Resp 16 Ht 154.9 cm (5' 1) Wt 69.4 kg (153 lb) BMI 28.91 kg/m Physical Exam Knee right: Appearance normal , ROM abnormal flexion 2/2 cyst, effusion none but large Bakers cyst palpated, straight leg raise: patient Able Lower extremity neuro exam: sensation to soft touch intact over the LE bilaterally. Lower extremity vascular exam: no edema over LE. Imaging - MRI of the knee: Meniscal tear and arthritic changes with a Lindsey s cyst. Assessment & Plan 1. 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 Previous treatments included aspiration and corticosteroid injections. Recent MRI confirmed meniscal tear and arthritis. - Performed aspiration of the cyst, removing approximately 49 mL of fluid, and administered a corticosteroid injection with Depo-Medrol to reduce inflammation. - Discussed initiating a series of three weekly hyaluronic acid injections (e.g., Euflexxa) to provide cushioning and lubrication to the knee joint. - Ordered hyaluronic acid injections; patient will be contacted by the corporate secretary to schedule appointments. - Recommended resuming physical therapy to address underlying arthritis and meniscal tear. Injection performed as detailed below: Large Joint Arthro/Inj: R Lindsey Cyst 11/19/2024 2:03 PM The procedure site was prepped in the usual sterile fashion. Site: R Lindsey Cyst Aspirate: 49 mL yellow and clear Details:Musculoskeletal ultrasound was utilized to successfully localize placement of the injection needle at the appropriate site. Ultrasound images demonstrating local vasculature and demonstrating injection of solution were saved. Medications: 40 mg methylPREDNISolone acetate 40 mg/mL Anesthetics: 7 mL lidocaine 10 mg/mL (1 %) Outcome: Tolerated well, no immediate complications Post-injection instructions were reviewed with the patient and the patient voiced understanding of these instructions. Informed Consent Consent Obtained: Verbal [place] Protocol A moment to CARE was completed. SIGN IN Personnel directly involved with the procedure wore the appropriate PPE. Special Equipment: N/A Patient/Surrogate Stated/Verified: Patient name and Intended procedure TIME OUT Relevant labs, photos, and/or imaging studies have been reviewed. Correct side/site marked and visible. Medications required for procedure verified. Arvind Haider DO Return for for gel injection. Recording using too.me software for draft documentation of the visit was discussed with the patient/authorized field representative; all questions welcomed and answered. Patient/authorized field representative agreed to proceed documented in this encounter [facility] 11-19-2024 Telephone encounter Note Xanax sent to patient pharmacy for anxiety due to invasive procedures per patient request. [employer]yl[employer] Mobile[employer] message sent to patient. Marcial Brooks APRN.NELY [facility] 11-19-2024 Miscellaneous Notes Xanax sent to patient pharmacy for anxiety due to invasive procedures per patient request. [employer] message sent to patient. Marcial Brooks APRN.MULTIPLE SLIDE OPERATOR documented in this encounter [facility] 11-12-2024 Note HNO ID: [id number] Author: ISABELL BOGGS LPN Service: ? Author Type: LICENSED NURSE Type: Progress Notes Filed: 11/14/2024 07:42 Note Text: Review of Systems Constitutional: Positive for activity change. Negative for chills, fever and unexpected weight change. Gastrointestinal: Negative for bowel retention or incontinence Genitourinary: Negative for difficulty urinating. Negative for bladder retention or incontinence Musculoskeletal: Positive for arthralgias, back pain, gait problem, neck pain and neck stiffness. Negative for joint swelling and myalgias. Neurological: Positive for weakness. Negative for numbness and headaches. Psychiatric/Behavioral: Positive for sleep disturbance. Negative for dysphoric mood and suicidal ideas. The patient is not nervous/anxious. [facility] 11-12-2024 History of Present illness Narrative Review of Systems Constitutional: Positive for activity change. Negative for chills, fever and unexpected weight change. Gastrointestinal: Negative for bowel retention or incontinence Genitourinary: Negative for difficulty urinating. Negative for bladder retention or incontinence Musculoskeletal: Positive for arthralgias, back pain, gait problem, neck pain and neck stiffness. Negative for joint swelling and myalgias. Neurological: Positive for weakness. Negative for numbness and headaches. Psychiatric/Behavioral: Positive for sleep disturbance. Negative for dysphoric mood and suicidal ideas. The patient is not nervous/anxious. Images from the original note were not included. [facility] Today's Date: 11/12/2024 Name: Akila De Los Santos : 1945 Purpose: Follow-up Patient Evaluation - This is an established patient, returning today for continued evaluation and management of the chief complaint noted below Chief complaint: back and hip pain Pertinent Past Medical History: asthma, DM2, PAD, TIA Pertinent Past Surgeries: none Plan at last visit: (Seen on 09/04/24 by Kalin Esposito MD) 79 year old female presents with with significant past medical history for low back decompressive surgeries x 3, scoliosis, who presents with complaint(s) of ongoing axial low back pain, lower limb radicular symptoms due to spinal stenosis. Of note: has been using poppy seed dressing last couple weeks, concerned aobut this as it relates to UDS She has evidence of left greater trochanteric bursitis. Will order steroid injection Interval History: Overall pain and functional disability since last visit: Worse New Complaints since last visit: Yes She stated no pain reduction following completion of left greater trochanter bursa injection on 10/15/2024. She denied any recent imaging studies of her hips. She stated that she continues to note benefit from taking her pregabalin and her tramadol and reduction of pain and maintenance of her functional status in order to continue to be able to perform her activities of daily living and is requesting refills for these medications today. She is wondering about treatment options for her left hip pain and would like to discuss today as well. Current Pain Medications: Neuropathics: Lyrica 50 mg TID NSAIDS: Muscle Relaxants: Topicals: Other Prescription or OTC Pain Medications: Tylenol Opioids (when applicable): Tramadol 50 mg daily as needed Anti-depressants or Mood-Stabilizers: Celexa Anti-Coagulants: None 07/18/2023 10/10/2023 01/02/2024 03/05/2024 04/27/2024 09/04/2024 11/12/2024 AG SPINE COMBINATION Questionnaire URINE DRUG SCREEN URINE DRUG SCREEN URINE DRUG SCREEN URINE DRUG SCREEN URINE DRUG SCREEN URINE DRUG SCREEN URINE DRUG SCREEN Completed Date 07/18/2023 10/10/2023 01/02/2024 03/05/2024 04/27/2024 09/04/2024 11/12/2024 Questionnaire NA/OIC NA/OIC NA/OIC NA/OIC Completed Date 07/18/2023 01/02/2024 03/05/2024 09/04/2024 Comments AMALIA today Questionnaire Opiod Risk Tool Completed Date 04/27/2024 MEDICATION NAME tramadol STRENGTH 50 LAST FILL DATE 10/11/2024 DATE LAST DOSE TAKEN 11/11/24 (2300) QUANTITY FILLED 30 QUANTITY REMAINING 10 Urine Drug Screen Questionnaire URINE DRUG SCREEN Completed Date 11/12/2024 (All drug screens are appropriate unless indicated otherwise) Notable Events During Course of Treatment: N/A Treatment History: PAIN PROCEDURES: DATE PROCEDURE IMPROVEMENT 10/15/24 L GTB CI under US 0% 06/11/24 right TFESI S1 80% 11/16/23 Caudal 50-80% 08/09/2022 Bilat SI Joint 85% (01/21/2023 ) 02/01/2022 Caudal CHAZ 70% x 7 months 11/26/2021 Bilat SI Joint 85% x nearly 6 months 04/07/2021 Bilat SI Joint 90% x 6 months Data Reviewed Today: Allergies: ALLERGIES Allergen Reactions Aspirin Shortness of Breath Lisinopril Swelling Latex Rash Penicillins Hives, Rash Sulfamethoxazole Hives Trileptal [Oxcarbaz* Other: See Comments Balance Problems after taking for a few days Social History Tobacco Use Smoking status: Former Types: Cigarettes Smokeless tobacco: Never Vaping Use Vaping status: Never Used Substance Use Topics Alcohol use: Never Drug use: Never 11/06/2024 11/12/2024 INTAKE PAIN ASSESSMENT Are you having pain associated with your visit today? Yes, Provider notified Yes, Provider notified Pain Scales Verbal (Numeric Rating or Visual Analog Scale) Pain Level 5 5 Pain Location Hip-Left Hip-Left Description Sore Sore;Aching;Stabbing Duration Units Hours Years Frequency Continuous Continuous Intervention/Comfort measure Medication;Relaxation Reposition;Declined;Relaxation;Med ication Compliance: PDMP website checked and validated on 11/14/2024 by Marcial Brooks APRN.MULTIPLE SLIDE OPERATOR All prescriptions have been APPROPRIATELY filled. No suspicious activity was identified. 07/18/2023 10/10/2023 01/02/2024 03/05/2024 04/27/2024 09/04/2024 11/12/2024 AG SPINE COMBINATION Questionnaire URINE DRUG SCREEN URINE DRUG SCREEN URINE DRUG SCREEN URINE DRUG SCREEN URINE DRUG SCREEN URINE DRUG SCREEN URINE DRUG SCREEN Completed Date 07/18/2023 10/10/2023 01/02/2024 03/05/2024 04/27/2024 09/04/2024 11/12/2024 Questionnaire NA/OIC NA/OIC NA/OIC NA/OIC Completed Date 07/18/2023 01/02/2024 03/05/2024 09/04/2024 Comments AMALIA today Questionnaire Opiod Risk Tool Completed Date 04/27/2024 (All drug screens are appropriate unless indicated otherwise) Risk Assessment: ISA-7: 11/19/2022 01/02/2024 05/04/2024 ISA - 7 SCORES Score 0 1 6 (0-4) minimal anxiety, (5-9) mild anxiety, (10-14) moderate anxiety, (15-21) severe anxiety PHQ-9: 04/08/2021 02/15/2022 01/02/2024 PHQ-9 Score 0 3 1 (0-4) minimal depression, (5-9) mild depression, (10-14) moderate depression, (15-19) moderately severe depression, (20-27) severe depression Diagnostic Studies: Relevant Imaging: MRI Spine Report MRI CERVICAL SPINE WO IVCON Exam End: 08/25/2022 3:08 PM (Final result) Narrative: * * *Final Report* * * DATE OF EXAM: Aug 25 2022 3:08PM Cynthia Chris - MRI CERVICAL SPINE WO IVCON / PROCEDURE REASON: multiple diagnoses * * * * Physician Interpretation * * * * EXAMINATION: MRI CERVICAL SPINE WO IVCON CLINICAL HISTORY: Spondylolysis of cervical region. Spinal stenosis of cervical region . TECHNIQUE: Routine cervical spine MR protocol without gadolinium. MQ: [id number] COMPARISON: Cervical spine radiographs 07/30/2022 RESULT: Counting reference: Craniocervical junction. Anatomic Variants: None. Localizer images: No additional findings. Alignment: There is straightening of normal cervical lordosis due to spondylolisthesis. There is mild retrolisthesis of C3 on C4 and C6 on C7. Craniocervical junction: Craniocervical junction is normal. Cord: The visualized cord is within normal limits of signal intensity and morphology. Bone marrow signal/fracture: No evidence of pathologic marrow infiltration. No evidence of prior fracture. There is moderate disc space height loss at C5-C6 and C6-C7. There are Modic type II degenerative endplate changes at C5-C6 and C6-C7 with vertebral body osteophyte formation. Cervical soft tissues: The paraspinal soft tissues are within normal limits. C2-C3: Canal and foramina are patent. C3-C4: Disc osteophyte complex effaces the ventral CSF contacting the ventral cord and along with ligamentum flavum thickening causes moderate stenosis of the spinal canal. There is severe left and moderate right neural foraminal narrowing due to uncovertebral and facet joint degenerative change. C4-C5: Disc osteophyte complex causes mild narrowing of the spinal canal. There is severe narrowing of both neural foramina due to uncovertebral arthropathy. C5-C6: Disc osteophyte complex impresses on the ventral thecal sac but without narrowing of the spinal canal. There is severe left and moderate right neural foraminal narrowing due to uncovertebral arthropathy. C6-C7: Disc osteophyte complex impresses on the ventral thecal sac with minimal narrowing of the spinal canal. There is severe left and moderate right neural foraminal narrowing due to uncovertebral arthropathy. C7-T1: Canal and foramina are patent. Impression: IMPRESSION: 1. Multilevel degenerative cervical spondylosis with straightening of cervical lordosis. 2. At C3-C4 there is moderate stenosis of the spinal canal and severe left neural foraminal stenosis. 3. There is multilevel high-grade neural foraminal stenosis as detailed. Anatomic Variant: None. Assume 7 cervical vertebrae with counting from the craniocervical junction. Can Machine Operator: [facility] Transcribe Date/Time: Aug 26 2022 3:21P Dictated by : TREVOR MELÉNDEZ MD This examination was interpreted and the report reviewed and electronically signed by: TREVOR MELÉNDEZ MD on Aug 26 2022 3:32PM EST X-ray Rt. Knee 07/16/2024 - Arvind Haider, DO 3 views of right knee with comparison views of opposite knee. No fractures/dislocations/tumors noted. Tricompartmental osteoarthritis with lateral tilt of the patella within the patellofemoral compartment. Assessment: Moderate OA right knee MRI Lumbar 05/20/21: Electrodiagnostic Study (EMG): None Recent Labs: Creatinine Date Value Ref Range Status 10/09/2024 0.82 0.58 - 0.96 mg/dL Final No results found for: EGFR Glucose, Point of Care Date Value Ref Range Status 10/15/2024 130 (A) 74 - 99 mg/dL Final Comment: Location:[facility], [address] [place] [address], [facility] The Accu-Chek Inform II glucose meter has not been approved for testing on patients receiving intensive medical intervention or therapy and results from this point of care glucose test should not be used for patient management decisions in these cases. Inaccurate results may also occur from other interfering factors, such as N-acetylcysteine (blood concentrations of greater than 5mg/dL), galactose, extremes of hematocrit (<10 or >65), or high doses of ascorbic acid (vitamin C) greater than 3mg/dL. Consider alternate testing mechanisms (e.g. core lab, blood gas instrument) in the above situations. Current Medications, Past Medical History, Past Surgical History, Family History, Social History and Review of Systems: On today's date, noted above, I have confirmed and edited as necessary, the PFSH and ROS obtained by others. Physical Exam: 11/12/24 1458 Pulse: 72 Resp: 18 SpO2: 99% Physical Exam HENT: Head: Normocephalic. Right Ear: External ear normal. Left Ear: External ear normal. Eyes: Pupils: Pupils are equal, round, and reactive to light. Cardiovascular: Pulses: Normal pulses. Pulmonary: Effort: Pulmonary effort is normal. Musculoskeletal: General: Tenderness (Hips, greater left) present. Cervical back: Tenderness present. Decreased range of motion. Lumbar back: Tenderness present. No swelling, edema, deformity, lacerations, spasms or bony tenderness. Decreased range of motion. Back: Right hip: Tenderness present. Left hip: Tenderness present. Legs: Skin: General: Skin is warm and dry. Capillary Refill: Capillary refill takes 2 to 3 seconds. Neurological: Mental Status: She is alert and oriented to person, place, and time. Sensory: Sensory deficit (Lower extremities) present. Motor: Weakness present. No atrophy or abnormal muscle tone. Gait: Gait abnormal. Deep Tendon Reflexes: Reflexes are normal and symmetric. Reflexes normal. Psychiatric: Mood and Affect: Mood normal. Behavior: Behavior normal. Thought Content: Thought content normal. IMPRESSION: 79 year old female presents with complaint(s) of bilateral hip and lower back pain. Patient has pain present in both hips and noted to be greater in left hip. Patient had no significant pain reduction after completion of left greater trochanter bursa injection on 10/15/2024. As patient had no recent imaging studies of hips I have ordered bilateral hip x-rays today. Patient denied previous left hip intra-articular steroid injection and I discussed ordering today under xray and patient would like to proceed with having ordered today. A UDS was collected today. Patient continues to note benefit by taking pregabalin and tramadol for pain and tramadol was refilled today for 60-day duration and pregabalin for 6 month duration. Patient expressed understanding and is in agreement with current pain management treatment plan. All patient questions were answered during today's office visit encounter. Diagnoses: (M16.12) Primary osteoarthritis of left hip (primary encounter diagnosis) (M96.1) Post laminectomy syndrome (M47.816) Lumbar spondylosis (M25.552) Pain in left hip (M25.551) Pain in right hip (M54.16) Lumbar radiculopathy (Z79.891) Encounter for long-term use of opiate analgesic PLAN: Akila De Los Santos would benefit from the following to reach personal goals for decreasing pain, improving function and work participation, and/or improving quality of life: Medications: Requested Prescriptions Signed Prescriptions Disp Refills traMADol (ULTRAM) 50 mg tablet 30 tablet 1 Sig: Take 1 tablet by mouth at bedtime as needed for pain for up to 60 days. pregabalin (LYRICA) 75 mg capsule 90 capsule 5 Sig: Take 1 capsule by mouth three times a day for 180 days. Interventional Procedures: Hip Intra-Articular Injection under fluoroscopic guidance LEFT-SIDED at N/A [employer] Lead Needed: Joint Injection - NO (Exception: SI Joint - YES) Anticoagulant - Hold Needed: N/A (Not currently on Anticoagulants), NO HOLD REQUIRED FOR THIS PROCEDURE Anticoagulant - Currently Taking: None Allergies (relevant): None Scheduling - Mobility (Can Patient independently transfer on/off an OR or Procedure table?): YES (May schedule at any location) Scheduling - Additional Info: None Studies: URINE DRUG SCREEN (IN OFFICE TODAY) X-ray: Hip (Right), X-ray: Hip (Left) Functional Restorationism: NONE Referrals: No additional considerations at present Follow-up: by 01/13/25 Depending on response to the above plan, consider: Right hip intra-articular CI Patient Education, Compliance and Clinic Policies Reviewed and/or Discussed Today: None Attribution: In addition to reviewing the information noted above, some elements copied from my most recent clinical note(s), including the physical exam (completed in entirety today), and the impression and plan sections, have been updated where appropriate. All reflect current medical decision making from today's date. Marcial Brooks APRN.NELY [facility], [facility] documented in this encounter [facility] 11-12-2024 Note HNO ID: [id number] Author: MARCIAL BROOKS APRN.CNP Service: ? Author Type: Nurse Practitioner Type: Progress Notes Filed: 11/14/2024 07:42 Note Text: [facility] Today's Date: 11/12/2024 Name: Akila De Los Santos : 1945 Purpose: Follow-up Patient Evaluation - This is an established patient, returning today for continued evaluation and management of the chief complaint noted below Chief complaint: back and hip pain Pertinent Past Medical History: asthma, DM2, PAD, TIA Pertinent Past Surgeries: none Plan at last visit: (Seen on 09/04/24 by Kalin Esposito MD) 79 year old female presents with with significant past medical history for low back decompressive surgeries x 3, scoliosis, who presents with complaint(s) of ongoing axial low back pain, lower limb radicular symptoms due to spinal stenosis. Of note: has been using poppy seed dressing last couple weeks, concerned aobut this as it relates to UDS She has evidence of left greater trochanteric bursitis. Will order steroid injection Interval History: Overall pain and functional disability since last visit: Worse New Complaints since last visit: Yes She stated no pain reduction following completion of left greater trochanter bursa injection on 10/15/2024. She denied any recent imaging studies of her hips. She stated that she continues to note benefit from taking her pregabalin and her tramadol and reduction of pain and maintenance of her functional status in order to continue to be able to perform her activities of daily living and is requesting refills for these medications today. She is wondering about treatment options for her left hip pain and would like to discuss today as well. Current Pain Medications: Neuropathics: Lyrica 50 mg TID NSAIDS: Muscle Relaxants: Topicals: Other Prescription or OTC Pain Medications: Tylenol Opioids (when applicable): Tramadol 50 mg daily as needed Anti-depressants or Mood-Stabilizers: Celexa Anti-Coagulants: None 07/18/2023 10/10/2023 01/02/2024 03/05/2024 04/27/2024 09/04/2024 11/12/2024 AG SPINE COMBINATION Questionnaire URINE DRUG SCREEN URINE DRUG SCREEN URINE DRUG SCREEN URINE DRUG SCREEN URINE DRUG SCREEN URINE DRUG SCREEN URINE DRUG SCREEN Completed Date 07/18/2023 10/10/2023 01/02/2024 03/05/2024 04/27/2024 09/04/2024 11/12/2024 Questionnaire NA/OIC NA/OIC NA/OIC NA/OIC Completed Date 07/18/2023 01/02/2024 03/05/2024 09/04/2024 Comments AMALIA today Questionnaire Opiod Risk Tool Completed Date 04/27/2024 MEDICATION NAME tramadol STRENGTH 50 LAST FILL DATE 10/11/2024 DATE LAST DOSE TAKEN 11/11/24 (2300) QUANTITY FILLED 30 QUANTITY REMAINING 10 Urine Drug Screen Questionnaire URINE DRUG SCREEN Completed Date 11/12/2024 (All drug screens are appropriate unless indicated otherwise) Notable Events During Course of Treatment: N/A Treatment History: PAIN PROCEDURES: DATE PROCEDURE IMPROVEMENT 10/15/24 L GTB CI under US 0% 06/11/24 right TFESI S1 80% 11/16/23 Caudal 50-80% 08/09/2022 Bilat SI Joint 85% (01/21/2023 ) 02/01/2022 Caudal CHAZ 70% x 7 months 11/26/2021 Bilat SI Joint 85% x nearly 6 months 04/07/2021 Bilat SI Joint 90% x 6 months Data Reviewed Today: Allergies: ALLERGIES Allergen Reactions Aspirin Shortness of Breath Lisinopril Swelling Latex Rash Penicillins Hives, Rash Sulfamethoxazole Hives Trileptal [Oxcarbaz* Other: See Comments Balance Problems after taking for a few days Social History Tobacco Use Smoking status: Former Types: Cigarettes Smokeless tobacco: Never Vaping Use Vaping status: Never Used Substance Use Topics Alcohol use: Never Drug use: Never 11/06/2024 11/12/2024 INTAKE PAIN ASSESSMENT Are you having pain associated with your visit today? Yes, Provider notified Yes, Provider notified Pain Scales Verbal (Numeric Rating or Visual Analog Scale) Pain Level 5 5 Pain Location Hip-Left Hip-Left Description Sore Sore;Aching;Stabbing Duration Units Hours Years Frequency Continuous Continuous Intervention/Comfort measure Medication;Relaxation Reposition;Declined;Relaxation;Med ication Compliance: PDMP website checked and validated on 11/14/2024 by Marcial Brooks APRN.MULTIPLE SLIDE OPERATOR All prescriptions have been APPROPRIATELY filled. No suspicious activity was identified. 07/18/2023 10/10/2023 01/02/2024 03/05/2024 04/27/2024 09/04/2024 11/12/2024 AG SPINE COMBINATION Questionnaire URINE DRUG SCREEN URINE DRUG SCREEN URINE DRUG SCREEN URINE DRUG SCREEN URINE DRUG SCREEN URINE DRUG SCREEN URINE DRUG SCREEN Completed Da (more content not included)... [facility] 11-12-2024 Telephone encounter Note PC to pt and scheduled for [address] Haider's request. Elisabeth Bermeo November 12, 2024 8:53 AM [facility] 11-12-2024 Miscellaneous Notes PC to pt and scheduled for [address] Haider's request. Elisabeth Bermeo November 12, 2024 8:53 AM documented in this encounter [facility] 11-09-2024 Note HNO ID: [id number] Author: DUSTIN CAMPOS OD Service: ? Author Type: EXERCISE PLANNER Type: Progress Notes Filed: 11/09/2024 16:49 Note Text: Reviewed family medicine note x 10/12/24 1. Superior oblique palsy, left (Primary) - Intermittent diplopia (vertical) on and off for 1-2 weeks - Left hypertropia (0.5), worse with right gaze (left head turn), and worse with left head tilt - Neutralized by 1 base up prism right eye in phoropter; demo'd with trial frame and patient accepts - History of HTN and T2DM (recent A1C elevated to 8.3%). Recently started on Metformin. - Stable dilated fundus exam - No jaw claudication. No fever. No unintentional weight loss. Rare headaches originating from neck/shoulder mobility issues. No tenderness when brushing hair. No temporal pain when palpating temporal area in office. No recent head injury. PLAN: - Educated patient on exam findings Suspect microvascular etiology vs. decompensating congenital CN4 palsy, but will recommend patient follow up with neuro-ophthalmology and see if further imaging indicated - Gave updated glasses prescription with prism; patient to trial and return to clinic if any issues 2. Type 2 diabetes mellitus 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) - Educated patient on nature of condition and importance of tight blood sugar control via diet/exercise/adherence to med regimen/regular follow up with primary care physician. - Monitor in 1 year at next diabetic eye exam, sooner if changes in vision occur 3. Dry eye syndrome of both eyes - Patient educated on exam findings - Recommended artificial tears up to four times a day both eyes, gel/ointment at bedtime, and warm compresses. - Instructed patient to RTC prn if symptoms worsen, otherwise monitor complete exam. 4. Refractive error - Educated patient on exam findings - New glasses prescription released to patient. - First time prism specs, allow 1-2 weeks for adaptation - Patient defers fresnel prism at this time - Monitor next complete exam. Consult to neuro-ophthalmology Dustin Campos, JAZMYN November 09, 2024 4:39 PM [facility] 11-09-2024 History of Present illness Narrative Reviewed family medicine note x 10/12/24 1. Superior oblique palsy, left (Primary) - Intermittent diplopia (vertical) on and off for 1-2 weeks - Left hypertropia (0.5^), worse with right gaze (left head turn), and worse with left head tilt - Neutralized by 1^ base up prism right eye in phoropter; demo'd with trial frame and patient accepts - History of HTN and T2DM (recent A1C elevated to 8.3%). Recently started on Metformin. - Stable dilated fundus exam - No jaw claudication. No fever. No unintentional weight loss. Rare headaches originating from neck/shoulder mobility issues. No tenderness when brushing hair. No temporal pain when palpating temporal area in office. No recent head injury. PLAN: - Educated patient on exam findings Suspect microvascular etiology vs. decompensating congenital CN4 palsy, but will recommend patient follow up with neuro-ophthalmology and see if further imaging indicated - Gave updated glasses prescription with prism; patient to trial and return to clinic if any issues 2. Type 2 diabetes mellitus 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) - Educated patient on nature of condition and importance of tight blood sugar control via diet/exercise/adherence to med regimen/regular follow up with primary care physician. - Monitor in 1 year at next diabetic eye exam, sooner if changes in vision occur 3. Dry eye syndrome of both eyes - Patient educated on exam findings - Recommended artificial tears up to four times a day both eyes, gel/ointment at bedtime, and warm compresses. - Instructed patient to RTC prn if symptoms worsen, otherwise monitor complete exam. 4. Refractive error - Educated patient on exam findings - New glasses prescription released to patient. - First time prism specs, allow 1-2 weeks for adaptation - Patient defers fresnel prism at this time - Monitor next complete exam. Consult to neuro-ophthalmology Dustin Campos, JAZMYN November 09, 2024 4:39 PM documented in this encounter [facility] 11-09-2024 Note Date of Procedure 11/09/2024. Print Inspector Information Rotoformer Backtender: alessia. Start time: 3:30 PM. Stop time: 3:30 PM. OCT Macula Interpretation Right Eye Normal without fluid. Findings include Negative for Intraretinal fluid. Left Eye Normal without fluid. Findings include Negative for Intraretinal fluid. OCT Measurement Right Eye BYPRODUCTS EXTRACTOR: 273. Left Eye BYPRODUCTS EXTRACTOR: 272. Interval Change Right Eye Initial. Left Eye Initial. [facility] 10-18-2024 Telephone encounter Note Attempted to contact patient to follow up after procedure. Left a brief message asking patient to return call if they have any questions or concerns. Stacy Cotter LPN [facility] 10-18-2024 Miscellaneous Notes Attempted to contact patient to follow up after procedure. Left a brief message asking patient to return call if they have any questions or concerns. Stacy Cotter LPN documented in this encounter [facility] 10-15-2024 Note HNO ID: [id number] Author: KALIN ESPOSITO MD Service: ? Author Type: Physician Type: Progress Notes Filed: 10/15/2024 15:12 Note Text: [facility] Patient name: Akila De Los Santos Date of : 1945 Today's date: 10/15/2024 Purpose: Ultrasound-guided injection Diagnosis: (M70.62) Greater trochanteric bursitis, left (primary encounter diagnosis) Procedure: Left Hip/Pelvis Greater Trochanter Print Inspector: Kalin Esposito MD Comments: None HPI: Akila De Los Santos is an 79 year old FEMALE who presents today, in pain, for the procedure noted above. Review of Systems: Pertinent Positives: MSK: pain in the region being treated Neuro: no weakness or numbness in the region being treated Skin: Negative (No itching) Eyes: Negative (No blurred or double vision) Respiratory: Negative (No Cough, Yhgfwzkkn-eg-[id number], Dyspnea on exertion, wheezing) Cardiovascular: Negative (No Chest Pain, Tightness, Pressure, Palpitations) Gastrointestinal: Negative (No Abdominal pain, Nausea, Vomiting, Constipation, Diarrhea) Genitourinary: Negative (No dysuria) Hematologic: Negative (No bleeding, bruising) OB: is Denied or Not Applicable Endocrine: Negative (No hot/cold intolerance) Psychiatric: Negative (No depression, anxiety or suicidal ideation) PAST MEDICAL HISTORY Diagnosis Date Asthma (HCC) Diabetes mellitus (HCC) DJD (degenerative joint disease) Left hand pain Osteoarthritis of multiple joints PAD (peripheral artery disease) TIA (transient ischemic attack) PAST SURGICAL HISTORY Procedure Laterality Date CATARACT EXTRACTION HX Left 11/2016 CATARACT EXTRACTION HX Right 11/2018 TOTAL ABDOM HYSTERECTOMY FAMILY HISTORY Problem Relation Age of Onset Blindness Maternal Grandmother Social History Tobacco Use Smoking status: Former Types: Cigarettes Smokeless tobacco: Never Vaping Use Vaping status: Never Used Substance Use Topics Alcohol use: Never Drug use: Never Current Outpatient Medications on File Prior to Visit Medication Sig metFORMIN ER (GLUCOPHAGE XR) 500 mg 24 hr tablet Take 2 tablets by mouth daily with breakfast. valACYclovir (VALTREX) 1 gram tablet Take 1 tablet by mouth once daily rosuvastatin (CRESTOR) 10 mg tablet TAKE 1 TABLET BY MOUTH ONCE DAILY AT BEDTIME solifenacin (VESICARE) 5 mg tablet Take 1 tablet by mouth once daily montelukast (SINGULAIR) 10 mg tablet TAKE 1 TABLET BY MOUTH ONCE DAILY AT BEDTIME traMADol (ULTRAM) 50 mg tablet Take 1 tablet by mouth at bedtime as needed for pain for up to 60 days. Patient should start on September 07, 2024. amLODIPine (NORVASC) 10 mg tablet Take 1 tablet by mouth once daily primidone (MYSOLINE) 50 mg tablet TAKE 1 TABLET BY MOUTH ONCE DAILY AT BEDTIME indapamide (LOZOL) 2.5 mg tablet Take 1 tablet by mouth once daily losartan (COZAAR) 100 mg tablet Take 1 tablet by mouth once daily. citalopram (CELEXA) 20 mg tablet Take 1 tablet by mouth once daily potassium chloride 20 mEq TbER Take 2 tablets by mouth twice daily pregabalin (LYRICA) 75 mg capsule Take 1 capsule by mouth three times a day for 180 days. fluticasone-salmeterol (WIXELA INHUB) 500-50 mcg/dose dsdv Inhale 1 Puff as instructed two times a day. albuterol HFA (VENTOLIN HFA) 90 mcg/actuation inhaler Inhale 2 Puffs as instructed every 4 hours as needed for wheezing/shortness of breath. ascorbic acid, vitamin C, (VITAMIN C) 500 mg tablet 1 tab(s) orally once a day for 30 day(s) betamethasone dipropionate 0.05 % ointment Apply to affected area twice daily. No current facility-administered medications on file prior to visit. Objective Exam: Vitals: As per nursing documentation Constitutional: Normal Appearance, Oriented to Time, Place and Person Head: No lacerations, no external signs of trauma Eyes: Conjunctiva clear. No discharge from the eyes Cardiovascular: Appears well-perfused Pulmonary: Non-labored respirations Abdominal: Non-distended Skin: No visible rashes or ecchymosis Psychiatric: Mood appropriate for given condition Neurological: Gross movements are limited by pain, but otherwise unremarkable Data Reviewed: Nursing note and vitals reviewed. Additional imaging reviewed as appropriate Assessment and Plan: As noted above [place] protocol documentation / Pre-Procedure Checklist: Consent: Obtained in writing prior to procedure I had a nice discussion with the patient today about their current pain and the pathology that could be causing it We discussed different treatment options, including risks, benefits and alternatives. We agreed to proceed as previously discussed, or the plan was modified in accordance with the comments noted above Unless stated otherwise in the procedure note, the risks include but are not limited to infection, allergic reaction, increased pain, lack of therapeutic benefit, steroid reaction, nerve damage, para (more content not included)... [facility] 10-15-2024 History of Present illness Narrative [facility] Patient name: Akila De Los Santos Date of : 1945 Today's date: 10/15/2024 Purpose: Ultrasound-guided injection Diagnosis: (M70.62) Greater trochanteric bursitis, left (primary encounter diagnosis) Procedure: Left Hip/Pelvis Greater Trochanter Print Inspector: Kalin Esposito MD Comments: None HPI: Akila De Los Santos is an 79 year old FEMALE who presents today, in pain, for the procedure noted above. Review of Systems: Pertinent Positives: MSK: pain in the region being treated Neuro: no weakness or numbness in the region being treated Skin: Negative (No itching) Eyes: Negative (No blurred or double vision) Respiratory: Negative (No Cough, Yccfkzkuy-[id number]-msdybn, Dyspnea on exertion, wheezing) Cardiovascular: Negative (No Chest Pain, Tightness, Pressure, Palpitations) Gastrointestinal: Negative (No Abdominal pain, Nausea, Vomiting, Constipation, Diarrhea) Genitourinary: Negative (No dysuria) Hematologic: Negative (No bleeding, bruising) OB: is Denied or Not Applicable Endocrine: Negative (No hot/cold intolerance) Psychiatric: Negative (No depression, anxiety or suicidal ideation) PAST MEDICAL HISTORY Diagnosis Date Asthma (HCC) Diabetes mellitus (HCC) DJD (degenerative joint disease) Left hand pain Osteoarthritis of multiple joints PAD (peripheral artery disease) TIA (transient ischemic attack) PAST SURGICAL HISTORY Procedure Laterality Date CATARACT EXTRACTION HX Left 11/2016 CATARACT EXTRACTION HX Right 11/2018 TOTAL ABDOM HYSTERECTOMY FAMILY HISTORY Problem Relation Age of Onset Blindness Maternal Grandmother Social History Tobacco Use Smoking status: Former Types: Cigarettes Smokeless tobacco: Never Vaping Use Vaping status: Never Used Substance Use Topics Alcohol use: Never Drug use: Never Current Outpatient Medications on File Prior to Visit Medication Sig metFORMIN ER (GLUCOPHAGE XR) 500 mg 24 hr tablet Take 2 tablets by mouth daily with breakfast. valACYclovir (VALTREX) 1 gram tablet Take 1 tablet by mouth once daily rosuvastatin (CRESTOR) 10 mg tablet TAKE 1 TABLET BY MOUTH ONCE DAILY AT BEDTIME solifenacin (VESICARE) 5 mg tablet Take 1 tablet by mouth once daily montelukast (SINGULAIR) 10 mg tablet TAKE 1 TABLET BY MOUTH ONCE DAILY AT BEDTIME traMADol (ULTRAM) 50 mg tablet Take 1 tablet by mouth at bedtime as needed for pain for up to 60 days. Patient should start on September 07, 2024. amLODIPine (NORVASC) 10 mg tablet Take 1 tablet by mouth once daily primidone (MYSOLINE) 50 mg tablet TAKE 1 TABLET BY MOUTH ONCE DAILY AT BEDTIME indapamide (LOZOL) 2.5 mg tablet Take 1 tablet by mouth once daily losartan (COZAAR) 100 mg tablet Take 1 tablet by mouth once daily. citalopram (CELEXA) 20 mg tablet Take 1 tablet by mouth once daily potassium chloride 20 mEq TbER Take 2 tablets by mouth twice daily pregabalin (LYRICA) 75 mg capsule Take 1 capsule by mouth three times a day for 180 days. fluticasone-salmeterol (WIXELA INHUB) 500-50 mcg/dose dsdv Inhale 1 Puff as instructed two times a day. albuterol HFA (VENTOLIN HFA) 90 mcg/actuation inhaler Inhale 2 Puffs as instructed every 4 hours as needed for wheezing/shortness of breath. ascorbic acid, vitamin C, (VITAMIN C) 500 mg tablet 1 tab(s) orally once a day for 30 day(s) betamethasone dipropionate 0.05 % ointment Apply to affected area twice daily. No current facility-administered medications on file prior to visit. Objective Exam: Vitals: As per nursing documentation Constitutional: Normal Appearance, Oriented to Time, Place and Person Head: No lacerations, no external signs of trauma Eyes: Conjunctiva clear. No discharge from the eyes Cardiovascular: Appears well-perfused Pulmonary: Non-labored respirations Abdominal: Non-distended Skin: No visible rashes or ecchymosis Psychiatric: Mood appropriate for given condition Neurological: Gross movements are limited by pain, but otherwise unremarkable Data Reviewed: Nursing note and vitals reviewed. Additional imaging reviewed as appropriate Assessment and Plan: As noted above [place] protocol documentation / Pre-Procedure Checklist: Consent: Obtained in writing prior to procedure I had a nice discussion with the patient today about their current pain and the pathology that could be causing it We discussed different treatment options, including risks, benefits and alternatives. We agreed to proceed as previously discussed, or the plan was modified in accordance with the comments noted above Unless stated otherwise in the procedure note, the risks include but are not limited to infection, allergic reaction, increased pain, lack of therapeutic benefit, steroid reaction, nerve damage, paralysis, stroke, epidural hematoma, syncope, headache, respiratory or cardiac arrest, pneumothorax, and scar formation Once the plan was agreed upon, the patient gave written consent to proceed and was transported into the procedure room Surgical/Procedure pause or Time Out : Time Out was led by the physician in the procedure room, with the patient and all staff present and participating The following information was verified during the Time Out process: Patient name, patient date of , procedure site (marked), laterality, anticoagulants and allergies ID verified by two sources: Name and Site(s) marked: yes Position: as per procedure note Consent: obtained verbally prior to procedure Allergies reviewed and verified with patient: yes Recent History and Physical: available Relevant images: available Surgical/Procedure pause: yes Other pre-procedural information: given Patient concurs: yes Team present and concurs: yes Static views were obtained using a 6-13 Hz linear probe After identifying the region mentioned above, the patient was positioned Right Lateral Decubitus. The area was prepped in aseptic fashion with Chloraprep. Doppler imaging was utilized to verify no major vessels in the anticipated needle trajectory. Using a 27 gauge, 1.5 inch needle, 1cc of 1% Lidocaine was injected beneath the skin, and a wheal was raised. Subsequently, at this site, a 22gauge, 110mm SonoTAP needle was directed into the above-mentioned target area utilizing real-time ultrasound guidance. The injection was completed under real-time ultrasound guidance, with the following medication injected slowly and with consistent pressure: 1cc of Depo-medrol (40mg/cc) and 3cc of 2% Lidocaine. The injected medication was visualized in its intended position. Where appropriate, there was distention of the involved joint and/or bursa. The needle was then removed. The remainder of the single use vials were wasted. The patient tolerated the procedure without difficulty and was instructed on post-injection care. Pre- and post-injection pictures, as well as pictures of any relevant findings, were obtained and saved for purposes of documentation. Patient was advised to watch for any signs of infection in the area of the injection (redness, streaky appearance of skin, etc.) and call the office immediately for treatment if those symptoms develop. The patient was instructed to follow-up with the requesting physician. Kalin Esposito MD Pain Management [facility] Order has been placed in the patient's chart with the following parameters for discharge from the physician: Patient is alert and oriented Vitals: Diastolic/Systolic +/- 20mmHg Respirations: 12-18 Pulse: 60-100 SpO2 is greater than or equal to 90% Patient has no nausea or vomiting Patient has no dizziness Pain level is +/- 2 from initial evaluation Dressing, dry and intact with no evidence of bleeding Criteria has been met, patient is okay to be discharged per the physician. Physician has gone in and evaluated the patient. Dressing dry and intact. No drainage noted. The patient denies nausea, numbness, tingling, weakness, shortness of breath, dizziness, or headache. Pain level 0/10. Vital signs within normal limits. Patient denied needing walked out by clinical staff and denied needing a wheelchair. Patient given discharge instructions and sent to transportation via ambulatory method. Patient left in good condition. Procedure to be performed: LEFT GREATER TROCHANTER BURSA INJECTION Patient was wheeled on stretcher from pre op bay to procedure room and assisted onto the procedure tablePatient s procedure was performed in an [facility] Procedure room. Pause completed at each level by provider to verify correct level and laterality placement Pressure was applied to patient s injection site(s) and bleeding was minimal. Patient had no complaint of shortness of breath, dizziness, headache, numbness, tingling, weakness or complications from procedure. Patient was assisted from the procedure table onto the stretcher and wheeled into a post op bay. Patient was advised a clinician will be to obtain another set of vitals. Time Out: 1423 Confirmed patient name, date of , procedure site, laterality, and allergies Procedure Start: 1426 Procedure End: 1427 [employer] Lead's Name: n/A Are you on a blood thinner: n If yes, is a hold required: n Last dose of blood thinner: n INR Result today: n Do you require a Lovenox bridge:n Are you a diabetic:y Are you/or could you be : n Are you taking Xanax for the procedure: n Are you currently on a steroid? n Are you currently on an antibiotic: n documented in this encounter [facility] 10-15-2024 Note HNO ID: [id number] Author: STACY COTTER LPN Service: ? Author Type: LICENSED NURSE Type: Progress Notes Filed: 10/15/2024 15:12 Note Text: Order has been placed in the patient's chart with the following parameters for discharge from the physician: Patient is alert and oriented Vitals: Diastolic/Systolic +/- 20mmHg Respirations: 12-18 Pulse: 60-100 SpO2 is greater than or equal to 90% Patient has no nausea or vomiting Patient has no dizziness Pain level is +/- 2 from initial evaluation Dressing, dry and intact with no evidence of bleeding Criteria has been met, patient is okay to be discharged per the physician. Physician has gone in and evaluated the patient. Dressing dry and intact. No drainage noted. The patient denies nausea, numbness, tingling, weakness, shortness of breath, dizziness, or headache. Pain level 0/10. Vital signs within normal limits. Patient denied needing walked out by clinical staff and denied needing a wheelchair. Patient given discharge instructions and sent to transportation via ambulatory method. Patient left in good condition. [facility] 10-15-2024 Note HNO ID: [id number] Author: KADEEM HENLEY LPN Service: ? Author Type: LICENSED NURSE Type: Progress Notes Filed: 10/15/2024 15:12 Note Text: Procedure to be performed: LEFT GREATER TROCHANTER BURSA INJECTION Patient was wheeled on stretcher from pre op bay to procedure room and assisted onto the procedure tablePatient?s procedure was performed in an [facility] Procedure room. Pause completed at each level by provider to verify correct level and laterality placement Pressure was applied to patient?s injection site(s) and bleeding was minimal. Patient had no complaint of shortness of breath, dizziness, headache, numbness, tingling, weakness or complications from procedure. Patient was assisted from the procedure table onto the stretcher and wheeled into a post op bay. Patient was advised a clinician will be to obtain another set of vitals. Time Out: 1424 Confirmed patient name, date of , procedure site, laterality, and allergies Procedure Start: 1426 Procedure End: 1428 [facility] 10-15-2024 Note HNO ID: [id number] Author: STACY COTTER LPN Service: ? Author Type: LICENSED NURSE Type: Progress Notes Filed: 10/15/2024 15:12 Note Text: [employer] Lead's Name: n/A Are you on a blood thinner: n If yes, is a hold required: n Last dose of blood thinner: n INR Result today: n Do you require a Lovenox bridge:n Are you a diabetic:y Are you/or could you be : n Are you taking Xanax for the procedure: n Are you currently on a steroid? n Are you currently on an antibiotic: n [facility] 10-15-2024 Instructions Stacy Cotter LPN - 10/15/2024 1:41 PM EDT documented in this encounter [facility] 10-12-2024 Instructions Betty Bueno MD - 10/12/2024 11:48 AM EDT - Begin metformin extended-release 500 mg once daily with breakfast; prescription has been sent to your pharmacy. - Take your blood pressure medicine (amlodipine or losartan) in the evening at the same time each day to reduce daytime sleepiness. - Continue your current medications (albuterol, Celexa, Wixela Inhub inhaler, losartan, amlodipine) as prescribed. - Stay well hydrated each day to support your kidney function. - A energy advisor will call you to review a 3-day meal diary; write down everything you eat for a few days before their call. - At your next lab visit, we will recheck your A1c and add a Cystatin C test to monitor kidney function. - Continue your knee exercises as tolerated, wear your knee brace for support, and discuss knee replacement with orthopedics if fluid buildup persists. - Keep using your ankle band to manage leg swelling and wear compression stockings when possible. - Consider receiving the updated COVID-19 vaccine this fall if you choose. documented in this encounter [facility] 10-12-2024 Note HNO ID: [id number] Author: BETTY BUENO MD Service: ? Author Type: Physician Type: Progress Notes Filed: 10/18/2024 16:42 Note Text: Betty Bueno M.D. [facility] [address] [place] [address] [facility] / [address] [place], [place] [address] Visit Date: October 12, 2024 Name: Akila De Los Santos Date of : 1945 MRN/E #: [id number] Chief Complaint: Akila De Los Santos is a 79-year-old female with a history of DM, HTN, and knee pain, presenting for follow-up. Subjective Akila De Los Santos is a 79 year old female here with the following complaint(s): Diabetes Mellitus: - Recent A1c: 8.3%; previous A1c values: 7.0%, 7.1%, 7.3%, 7.7%. - Recent blood glucose: 129 mg/dL. - Denies excessive thirst or hunger. - Reports nocturia and difficulty emptying bladder; denies dysuria. - Denies dietary changes; attributes elevated A1c to recent steroid use for knee pain. - Never taken metformin; expresses concern about side effects based on 's experience. Hypertension: - Managed with losartan and amlodipine. - Reports drowsiness, suspects it may be related to antihypertensive medications. Knee Pain: - Chronic knee pain with recurrent effusion; knee has been aspirated twice. - Presence of a cyst on the posterior aspect of the knee. - Orthopedic surgeon mentioned potential knee replacement if symptoms persist. - Provided with exercises to perform at home; unable to perform some due to limited knee flexion. - Attends exercise class on Tuesday mornings. - Recent steroid use for knee pain. Edema: - Chronic ankle edema; uses compression sleeve to manage swelling. - Wears compression stockings occasionally; finds them uncomfortable in warm weather. Albuminuria: - Recent urine albumin-creatinine ratio elevated. - Managed with losartan. Hyperlipidemia: - Recent lipid panel: Total cholesterol 149 mg/dL, HDL 80 mg/dL, LDL 53 mg/dL. - Recent lipoprotein A test normal. Constitutional: (+) somnolence Genitourinary: (+) nocturia, (+) urinary hesitancy, (+) incomplete bladder emptying, (-) dysuria Musculoskeletal: (+) knee swelling, (+) knee pain, (+) decreased knee range of motion, (+) ankle swelling, (+) back pain Endocrine: (-) polydipsia, (-) polyphagia Social History Tobacco Use Smoking status: Former Types: Cigarettes Smokeless tobacco: Never Vaping Use Vaping status: Never Used Substance Use Topics Alcohol use: Never Drug use: Never ALLERGIES Allergen Reactions Aspirin Shortness of Breath Lisinopril Swelling Latex Rash Penicillins Hives, Rash Sulfamethoxazole Hives Trileptal [Oxcarbaz* Other: See Comments Balance Problems after taking for a few days Current Outpatient Medications Medication Sig valACYclovir (VALTREX) 1 gram tablet Take 1 tablet by mouth once daily rosuvastatin (CRESTOR) 10 mg tablet TAKE 1 TABLET BY MOUTH ONCE DAILY AT BEDTIME solifenacin (VESICARE) 5 mg tablet Take 1 tablet by mouth once daily montelukast (SINGULAIR) 10 mg tablet TAKE 1 TABLET BY MOUTH ONCE DAILY AT BEDTIME traMADol (ULTRAM) 50 mg tablet Take 1 tablet by mouth at bedtime as needed for pain for up to 60 days. Patient should start on September 07, 2024. amLODIPine (NORVASC) 10 mg tablet Take 1 tablet by mouth once daily primidone (MYSOLINE) 50 mg tablet TAKE 1 TABLET BY MOUTH ONCE DAILY AT BEDTIME indapamide (LOZOL) 2.5 mg tablet Take 1 tablet by mouth once daily losartan (COZAAR) 100 mg tablet Take 1 tablet by mouth once daily. citalopram (CELEXA) 20 mg tablet Take 1 tablet by mouth once daily potassium chloride 20 mEq TbER Take 2 tablets by mouth twice daily pregabalin (LYRICA) 75 mg capsule Take 1 capsule by mouth three times a day for 180 days. fluticasone-salmeterol (WIXELA INHUB) 500-50 mcg/dose dsdv Inhale 1 Puff as instructed two times a day. albuterol HFA (VENTOLIN HFA) 90 mcg/actuation inhaler Inhale 2 Puffs as instructed every 4 hours as needed for wheezing/shortness of breath. ascorbic acid, vitamin C, (VITAMIN C) 500 mg tablet 1 tab(s) orally once a day for 30 day(s) betamethasone dipropionate 0.05 % ointment Apply to affected area twice daily. metFORMIN ER (GLUCOPHAGE XR) 500 mg 24 hr tablet Take 2 tablets by mouth daily with breakfast. No current facility-administered medications for this visit. I have confirmed and edited as necessary the chief complaint, medications, past medical, family and social histories. Objective 10/12/24 1010 BP: 138/74 Pulse: 73 Temp: 36.1 ?C (96.9 ?F) Weight: 153 lb (69.4 kg) Height: 5' 1 (1.549 m) Body mass index is 28.91 kg/m?. GENERAL: NAD, alert and oriented. SKIN: Unremarkable, no rash or skin lesions. HEAD: Normocephalic. EYES: PERRLA, EOMI, conjunctiva clear. EARS: External ears normal, canals clear, TM's normal. NOSE/SINUSES: Nares normal. Septum midline. OROPHARYNX: Lips, mucosa, and tongue (more content not included)... [facility] 10-12-2024 History of Present illness Narrative Images from the original note were not included. Nkosi H. Ximena, M.D. [facility] [address] [facility] / [address] [place], [place] [address] Visit Date: October 12, 2024 Name: Akila De Los Santos Date of : 1945 MRN/E #: [id number] Chief Complaint: Akila De Los Santos is a 79-year-old female with a history of DM, HTN, and knee pain, presenting for follow-up. Subjective Akila De Los Santos is a 79 year old female here with the following complaint(s): Diabetes Mellitus: - Recent A1c: 8.3%; previous A1c values: 7.0%, 7.1%, 7.3%, 7.7%. - Recent blood glucose: 129 mg/dL. - Denies excessive thirst or hunger. - Reports nocturia and difficulty emptying bladder; denies dysuria. - Denies dietary changes; attributes elevated A1c to recent steroid use for knee pain. - Never taken metformin; expresses concern about side effects based on 's experience. Hypertension: - Managed with losartan and amlodipine. - Reports drowsiness, suspects it may be related to antihypertensive medications. Knee Pain: - Chronic knee pain with recurrent effusion; knee has been aspirated twice. - Presence of a cyst on the posterior aspect of the knee. - Orthopedic surgeon mentioned potential knee replacement if symptoms persist. - Provided with exercises to perform at home; unable to perform some due to limited knee flexion. - Attends exercise class on Tuesday mornings. - Recent steroid use for knee pain. Edema: - Chronic ankle edema; uses compression sleeve to manage swelling. - Wears compression stockings occasionally; finds them uncomfortable in warm weather. Albuminuria: - Recent urine albumin-creatinine ratio elevated. - Managed with losartan. Hyperlipidemia: - Recent lipid panel: Total cholesterol 149 mg/dL, HDL 80 mg/dL, LDL 53 mg/dL. - Recent lipoprotein A test normal. Constitutional: (+) somnolence Genitourinary: (+) nocturia, (+) urinary hesitancy, (+) incomplete bladder emptying, (-) dysuria Musculoskeletal: (+) knee swelling, (+) knee pain, (+) decreased knee range of motion, (+) ankle swelling, (+) back pain Endocrine: (-) polydipsia, (-) polyphagia Social History Tobacco Use Smoking status: Former Types: Cigarettes Smokeless tobacco: Never Vaping Use Vaping status: Never Used Substance Use Topics Alcohol use: Never Drug use: Never ALLERGIES Allergen Reactions Aspirin Shortness of Breath Lisinopril Swelling Latex Rash Penicillins Hives, Rash Sulfamethoxazole Hives Trileptal [Oxcarbaz* Other: See Comments Balance Problems after taking for a few days Current Outpatient Medications Medication Sig valACYclovir (VALTREX) 1 gram tablet Take 1 tablet by mouth once daily rosuvastatin (CRESTOR) 10 mg tablet TAKE 1 TABLET BY MOUTH ONCE DAILY AT BEDTIME solifenacin (VESICARE) 5 mg tablet Take 1 tablet by mouth once daily montelukast (SINGULAIR) 10 mg tablet TAKE 1 TABLET BY MOUTH ONCE DAILY AT BEDTIME traMADol (ULTRAM) 50 mg tablet Take 1 tablet by mouth at bedtime as needed for pain for up to 60 days. Patient should start on September 07, 2024. amLODIPine (NORVASC) 10 mg tablet Take 1 tablet by mouth once daily primidone (MYSOLINE) 50 mg tablet TAKE 1 TABLET BY MOUTH ONCE DAILY AT BEDTIME indapamide (LOZOL) 2.5 mg tablet Take 1 tablet by mouth once daily losartan (COZAAR) 100 mg tablet Take 1 tablet by mouth once daily. citalopram (CELEXA) 20 mg tablet Take 1 tablet by mouth once daily potassium chloride 20 mEq TbER Take 2 tablets by mouth twice daily pregabalin (LYRICA) 75 mg capsule Take 1 capsule by mouth three times a day for 180 days. fluticasone-salmeterol (WIXELA INHUB) 500-50 mcg/dose dsdv Inhale 1 Puff as instructed two times a day. albuterol HFA (VENTOLIN HFA) 90 mcg/actuation inhaler Inhale 2 Puffs as instructed every 4 hours as needed for wheezing/shortness of breath. ascorbic acid, vitamin C, (VITAMIN C) 500 mg tablet 1 tab(s) orally once a day for 30 day(s) betamethasone dipropionate 0.05 % ointment Apply to affected area twice daily. metFORMIN ER (GLUCOPHAGE XR) 500 mg 24 hr tablet Take 2 tablets by mouth daily with breakfast. No current facility-administered medications for this visit. I have confirmed and edited as necessary the chief complaint, medications, past medical, family and social histories. Objective 10/12/24 1010 BP: 138/74 Pulse: 73 Temp: 36.1 C (96.9 F) Weight: 153 lb (69.4 kg) Height: 5' 1 (1.549 m) Body mass index is 28.91 kg/m . GENERAL: NAD, alert and oriented. SKIN: Unremarkable, no rash or skin lesions. HEAD: Normocephalic. EYES: PERRLA, EOMI, conjunctiva clear. EARS: External ears normal, canals clear, TM's normal. NOSE/SINUSES: Nares normal. Septum midline. OROPHARYNX: Lips, mucosa, and tongue normal. No oral lesions noted. NECK: Supple. LUNGS: Clear to auscultation bilaterally, no wheezes/rhonchi/rales. HEART: Regular rate and rhythm, no murmurs. No ectopy. EXTREMITIES: Normal, no deformities, no skin discoloration, no edema. NEURO: Awake, alert and oriented. Labs: (Today) Hemoglobin A1c: 8.3 (3 days ago) Albumin:Creatinine ratio: Elevated (a few days ago) - Lipoprotein (a): Normal - Cholesterol Panel: - Total cholesterol: 149 mg/dL - HDL: 80 mg/dL - LDL: 53 mg/dL - Kidney function: Normal - Liver function: Normal - Electrolytes: Normal - Blood glucose: 129 mg/dL Hemoglobin A1c: 7.7 Assessment / Plan 1. Type 2 diabetes mellitus 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) (E11.9) - Recent A1c elevated at 8.3%, indicating suboptimal glycemic control; previous A1c values were 7.0%, 7.3%, and 7.7%. - Fasting blood glucose level was 129 mg/dL, above the normal range. - Discussed initiation of Metformin 500 mg once daily with breakfast to improve glycemic control; educated on potential GI side effects and the benefits of extended-release formulation. - Referral to a energy advisor for dietary counseling and meal planning to support diabetes management. - Follow-up A1c testing to be scheduled to monitor response to treatment. 2. Primary hypertension (I10) - Blood pressure reading today was 138/74 mmHg. - Currently managed with losartan and amlodipine. - Advised patient to take antihypertensive medications in the evening to address reported drowsiness, ensuring consistent daily dosing. - Continue current medication regimen. 3. Dyslipidemia (E78.5) - Recent lipid panel shows excellent control: Total cholesterol 149 mg/dL, HDL 80 mg/dL, LDL 53 mg/dL. - No changes to current management; continue current lipid-lowering therapy. Return in about 3 months (around 01/12/2025). Discussed the above with the patient using shared decision-making. The patient is in agreement with the diagnostic and treatment plans. Recording using too.me software for draft documentation of the visit was discussed with the patient/authorized field representative; all questions welcomed and answered. Patient/authorized field representative agreed to proceed Provider: Betty Bueno MD Date: October 12, 2024 Time: 11:20 AM documented in this encounter [facility] 09-19-2024 Note HNO ID: [id number] Author: ARVIND HAIDER DO Service: ? Author Type: Physician Type: Progress Notes Filed: 09/19/2024 13:40 Note Text: Date of Evaluation: 09/19/2024 Patient Name: Akila De Los Santos : 1945 Subjective Akila is a 79-year-old female with a history of right knee effusion and Lindsey's cyst, presenting with recurrent swelling and pain in the right knee. Akila reports that her right knee began swelling again last week, with effusion noted both anteriorly and posteriorly. She describes the swelling as significant, with a knob-like protrusion on the lateral aspect of the knee. The swelling is accompanied by severe pain and has also caused edema in her ankle, which she notes is unusual for her. The only way she can ambulate is by wrapping the knee tightly. She received a steroid injection in May, which provided relief, but the swelling has recurred. She also mentions that the swelling had previously subsided after she sent a message to the clinician about it. She is scheduled for a cortisone injection in her left hip next month and inquires if this will affect her current condition. She has a history of physical therapy but has not undergone any sessions this year. She expresses concern about the cost of physical therapy sessions, which are $35 each. She is interested in home exercises to manage her condition. Review of Systems Musculoskeletal: (+) right knee swelling, (+) right knee pain, (+) ankle swelling, (+) back tightness PAST MEDICAL HISTORY Diagnosis Date Asthma (HCC) Diabetes mellitus (HCC) DJD (degenerative joint disease) Left hand pain Osteoarthritis of multiple joints PAD (peripheral artery disease) TIA (transient ischemic attack) PAST SURGICAL HISTORY Procedure Laterality Date CATARACT EXTRACTION HX Left 11/2016 CATARACT EXTRACTION HX Right 11/2018 TOTAL ABDOM HYSTERECTOMY FAMILY HISTORY Problem Relation Age of Onset Blindness Maternal Grandmother Social History Tobacco Use Smoking status: Former Types: Cigarettes Smokeless tobacco: Never Vaping Use Vaping status: Never Used Substance Use Topics Alcohol use: Never Drug use: Never Current Outpatient Medications Medication Sig montelukast (SINGULAIR) 10 mg tablet TAKE 1 TABLET BY MOUTH ONCE DAILY AT BEDTIME traMADol (ULTRAM) 50 mg tablet Take 1 tablet by mouth at bedtime as needed for pain for up to 60 days. Patient should start on September 07, 2024. amLODIPine (NORVASC) 10 mg tablet Take 1 tablet by mouth once daily primidone (MYSOLINE) 50 mg tablet TAKE 1 TABLET BY MOUTH ONCE DAILY AT BEDTIME indapamide (LOZOL) 2.5 mg tablet Take 1 tablet by mouth once daily losartan (COZAAR) 100 mg tablet Take 1 tablet by mouth once daily. citalopram (CELEXA) 20 mg tablet Take 1 tablet by mouth once daily rosuvastatin (CRESTOR) 10 mg tablet TAKE 1 TABLET BY MOUTH ONCE DAILY AT BEDTIME potassium chloride 20 mEq TbER Take 2 tablets by mouth twice daily solifenacin (VESICARE) 5 mg tablet Take 1 tablet by mouth once daily pregabalin (LYRICA) 75 mg capsule Take 1 capsule by mouth three times a day for 180 days. fluticasone-salmeterol (WIXELA INHUB) 500-50 mcg/dose dsdv Inhale 1 Puff as instructed two times a day. albuterol HFA (VENTOLIN HFA) 90 mcg/actuation inhaler Inhale 2 Puffs as instructed every 4 hours as needed for wheezing/shortness of breath. valACYclovir (VALTREX) 1 gram tablet Take 1 tablet by mouth once daily ascorbic acid, vitamin C, (VITAMIN C) 500 mg tablet 1 tab(s) orally once a day for 30 day(s) betamethasone dipropionate 0.05 % ointment Apply to affected area twice daily. predniSONE (DELTASONE) 10 mg tablet Take 1 tablet by mouth three times a day for 3 days, THEN 1 tablet two times a day for 3 days, THEN 1 tablet once daily for 3 days. No current facility-administered medications for this visit. Objective Resp 18 Ht 154.9 cm (5' 1) Wt 66.7 kg (147 lb) BMI 27.78 kg/m? Physical Exam - Cardiovascular: Pitting edema noted bilaterally at the ankles. - Musculoskeletal: - Right Knee: - 1+ effusion noted; tenderness on palpation of the posterior aspect; fullness noted in the posterior aspect; Lindsey's cyst observed via ultrasound. - ROM: Flexion to 90 degrees with tightness. - Provocative test: Negative Bethany's test. Imaging: (Today) Ultrasound (Right Knee): - Lindsey?s cyst in the posterior knee - 56 cc of fluid aspirated (07/16) Ultrasound (Right Knee): Lindsey?s cyst aspirated Assessment AND Plan 1. Chronic pain of right knee (M25.561) Synovial cyst of right popliteal space (M71.21) Primary osteoarthritis of right knee (M17.11) Patient presents with recurrent swelling and pain in the right knee, with effusion graded as 1+. Ultrasound reveals a large Lindsey's cyst in the posterior knee. Previous steroid injection on July 16 provided temporary relief. Pitting edema noted bilaterally at the ankles. Underlying osteoarth (more content not included)... [facility] 09-19-2024 History of Present illness Narrative Associated Order(s): Large Joint Arthro/Inj: R Lindsey Cyst Post-Procedure Diagnose(s): Primary osteoarthritis of right knee; Synovial cyst of right popliteal space; Chronic pain of right knee Images from the original note were not included. Date of Evaluation: 09/19/2024 Patient Name: Akila De Los Santos : 1945 Subjective Akila is a 79-year-old female with a history of right knee effusion and Lindsey's cyst, presenting with recurrent swelling and pain in the right knee. Akila reports that her right knee began swelling again last week, with effusion noted both anteriorly and posteriorly. She describes the swelling as significant, with a knob-like protrusion on the lateral aspect of the knee. The swelling is accompanied by severe pain and has also caused edema in her ankle, which she notes is unusual for her. The only way she can ambulate is by wrapping the knee tightly. She received a steroid injection in May, which provided relief, but the swelling has recurred. She also mentions that the swelling had previously subsided after she sent a message to the clinician about it. She is scheduled for a cortisone injection in her left hip next month and inquires if this will affect her current condition. She has a history of physical therapy but has not undergone any sessions this year. She expresses concern about the cost of physical therapy sessions, which are $35 each. She is interested in home exercises to manage her condition. Review of Systems Musculoskeletal: (+) right knee swelling, (+) right knee pain, (+) ankle swelling, (+) back tightness PAST MEDICAL HISTORY Diagnosis Date Asthma (HCC) Diabetes mellitus (HCC) DJD (degenerative joint disease) Left hand pain Osteoarthritis of multiple joints PAD (peripheral artery disease) TIA (transient ischemic attack) PAST SURGICAL HISTORY Procedure Laterality Date CATARACT EXTRACTION HX Left 11/2016 CATARACT EXTRACTION HX Right 11/2018 TOTAL ABDOM HYSTERECTOMY FAMILY HISTORY Problem Relation Age of Onset Blindness Maternal Grandmother Social History Tobacco Use Smoking status: Former Types: Cigarettes Smokeless tobacco: Never Vaping Use Vaping status: Never Used Substance Use Topics Alcohol use: Never Drug use: Never Current Outpatient Medications Medication Sig montelukast (SINGULAIR) 10 mg tablet TAKE 1 TABLET BY MOUTH ONCE DAILY AT BEDTIME traMADol (ULTRAM) 50 mg tablet Take 1 tablet by mouth at bedtime as needed for pain for up to 60 days. Patient should start on September 07, 2024. amLODIPine (NORVASC) 10 mg tablet Take 1 tablet by mouth once daily primidone (MYSOLINE) 50 mg tablet TAKE 1 TABLET BY MOUTH ONCE DAILY AT BEDTIME indapamide (LOZOL) 2.5 mg tablet Take 1 tablet by mouth once daily losartan (COZAAR) 100 mg tablet Take 1 tablet by mouth once daily. citalopram (CELEXA) 20 mg tablet Take 1 tablet by mouth once daily rosuvastatin (CRESTOR) 10 mg tablet TAKE 1 TABLET BY MOUTH ONCE DAILY AT BEDTIME potassium chloride 20 mEq TbER Take 2 tablets by mouth twice daily solifenacin (VESICARE) 5 mg tablet Take 1 tablet by mouth once daily pregabalin (LYRICA) 75 mg capsule Take 1 capsule by mouth three times a day for 180 days. fluticasone-salmeterol (WIXELA INHUB) 500-50 mcg/dose dsdv Inhale 1 Puff as instructed two times a day. albuterol HFA (VENTOLIN HFA) 90 mcg/actuation inhaler Inhale 2 Puffs as instructed every 4 hours as needed for wheezing/shortness of breath. valACYclovir (VALTREX) 1 gram tablet Take 1 tablet by mouth once daily ascorbic acid, vitamin C, (VITAMIN C) 500 mg tablet 1 tab(s) orally once a day for 30 day(s) betamethasone dipropionate 0.05 % ointment Apply to affected area twice daily. predniSONE (DELTASONE) 10 mg tablet Take 1 tablet by mouth three times a day for 3 days, THEN 1 tablet two times a day for 3 days, THEN 1 tablet once daily for 3 days. No current facility-administered medications for this visit. Objective Resp 18 Ht 154.9 cm (5' 1) Wt 66.7 kg (147 lb) BMI 27.78 kg/m Physical Exam - Cardiovascular: Pitting edema noted bilaterally at the ankles. - Musculoskeletal: - Right Knee: - 1+ effusion noted; tenderness on palpation of the posterior aspect; fullness noted in the posterior aspect; Lidnsey's cyst observed via ultrasound. - ROM: Flexion to 90 degrees with tightness. - Provocative test: Negative Bethany's test. Imaging: (Today) Ultrasound (Right Knee): - Lindsey s cyst in the posterior knee - 56 cc of fluid aspirated (07/16) Ultrasound (Right Knee): Lindsey s cyst aspirated Assessment & Plan 1. Chronic pain of right knee (M25.561) Synovial cyst of right popliteal space (M71.21) Primary osteoarthritis of right knee (M17.11) Patient presents with recurrent swelling and pain in the right knee, with effusion graded as 1+. Ultrasound reveals a large Lindsey's cyst in the posterior knee. Previous steroid injection on July 16 provided temporary relief. Pitting edema noted bilaterally at the ankles. Underlying osteoarthritis and potential meniscal tear contributing to recurrent Lindsey's cyst formation. - Performed ultrasound-guided aspiration of the Lindsey's cyst, draining 56 cc of fluid. - Initiated a 9-day course of oral corticosteroids to manage inflammation and pain; advised patient on potential temporary elevation of blood glucose levels and symptoms to monitor. - Provided patient with home exercise regimen to strengthen the knee and reduce recurrence of cyst formation. - Discussed the possibility of surgical intervention, such as knee replacement, if conservative measures fail to provide long-term relief. - Advised patient to monitor symptoms and report any recurrence of swelling or pain via MyChart or phone call. Injection performed as detailed below: Large Joint Arthro/Inj: R Lindsey Cyst 09/19/2024 1:39 PM The procedure site was prepped in the usual sterile fashion. Site: R Lindsey Cyst Aspirate: 56 mL blood-tinged and serous Details:Musculoskeletal ultrasound was utilized to successfully localize placement of the injection needle at the appropriate site. Ultrasound images demonstrating local vasculature and demonstrating injection of solution were saved. Anesthetics: 5 mL lidocaine (PF) 10 mg/mL (1 %) Outcome: Tolerated well, no immediate complications Post-injection instructions were reviewed with the patient and the patient voiced understanding of these instructions. Informed Consent Consent Obtained: Verbal [place] Protocol A moment to CARE was completed. SIGN IN Personnel directly involved with the procedure wore the appropriate PPE. Special Equipment: N/A Patient/Surrogate Stated/Verified: Patient name and Intended procedure TIME OUT Relevant labs, photos, and/or imaging studies have been reviewed. Correct side/site marked and visible. Medications required for procedure verified. Arvind Haider DO Return if symptoms worsen or fail to improve. Recording using too.me software for draft documentation of the visit was discussed with the patient/authorized field representative; all questions welcomed and answered. Patient/authorized field representative agreed to proceed Will continue to monitor patient for Chronic pain of right knee (primary encounter diagnosis) Synovial cyst of right popliteal space Primary osteoarthritis of right knee, patient to schedule visit as per follow up discussed. REVIEW OF SYSTEMS: GENERAL: Well developed, well nourished. No acute distress PAIN: 10/02 CARDIOVASCULAR: Negative for chest pain, leg swelling and palpations. MSK: right knee SKIN: Negative for lesions, rash, itching, metal sensitivity NEURO: Negative for seizure, trauma, numbness/tingling of extremities. ENDOCRINE: DMII HEMATOLOGY: Negative for excessive bleeding, clots, bleeding disorders. documented in this encounter [facility] 09-19-2024 Instructions Arvind Haider DO - 09/19/2024 1:38 PM EDT We discussed your right knee pain and swelling: - I drained 56 cc of fluid from your Lindsey s cyst today using ultrasound guidance. This should help relieve some of the pressure and discomfort. - It is too soon to repeat a steroid injection, as the last one was done on July 16. Steroid injections are typically spaced at least three months apart. We can consider another injection in about a month if needed. - Lindsey s cysts often recur due to underlying joint issues, such as arthritis or meniscal tears. To address the root cause, I recommend: - Starting home exercises to strengthen your knee. A handout with specific exercises will be provided to you at the credit front office developer. Please do these exercises a couple of times per week. - Continuing your regular Tuesday exercise routine, as this is beneficial. - Using a knee brace or wrap for additional support, as you find this helpful for walking. - I prescribed a short course of oral steroids (9 days total) to help reduce inflammation and pain. Please monitor your blood sugar while taking this medication, as it may temporarily raise your levels. If you experience symptoms such as lightheadedness, excessive thirst, or frequent urination, check your blood sugar or seek medical attention. - Continue taking all your regular medications as prescribed. We discussed next steps: - If the swelling and pain persist despite these measures, we may need to consider additional treatments, such as physical therapy, further injections, or, in some cases, surgery (e.g., knee replacement) to address the underlying arthritis. - Please send me a message on Contacts+ or call the office to update me on your progress or if you have any concerns. Let us know if you need further assistance. documented in this encounter [facility] 09-19-2024 Note HNO ID: [id number] Author: GOYO ALBARADO LPN Service: ? Author Type: LICENSED NURSE Type: Progress Notes Filed: 09/19/2024 13:40 Note Text: REVIEW OF SYSTEMS: GENERAL: Well developed, well nourished. No acute distress PAIN: 6/10 CARDIOVASCULAR: Negative for chest pain, leg swelling and palpations. MSK: right knee SKIN: Negative for lesions, rash, itching, metal sensitivity NEURO: Negative for seizure, trauma, numbness/tingling of extremities. ENDOCRINE: DMII HEMATOLOGY: Negative for excessive bleeding, clots, bleeding disorders. [facility] 09-18-2024 Telephone encounter Note I heard back from Bertha, mysoline will cause a + phenobarbital result Diana Vargas APRN.MULTIPLE SLIDE OPERATOR [facility] Work Phone: 09-18-2024 Miscellaneous Notes I heard back from Bertha, mysoline will cause a + phenobarbital result Diana Vargas APRN.MULTIPLE SLIDE OPERATOR She was positive for phenobarbital, can this be from the mysoline? Bertha is checking with the lab Diana Vargas APRN.MULTIPLE SLIDE OPERATOR documented in this encounter [facility] 09-18-2024 Telephone encounter Note She was positive for phenobarbital, can this be from the mysoline? Bertha is checking with the lab Diana Vargas APRN.MULTIPLE SLIDE OPERATOR [facility] 09-04-2024 Telephone encounter Note Procedure(s) being scheduled: Greater Trochanteric Bursal Injection under ultrasound guidance LEFT-SIDED 1.Are you diabetic Yes. Please list the current medications being prescribed no meds. 2. Are you on any blood thinners? No If yes, does it require a hold? No If yes, was approval letter sent? No 3. Are you taking any aspirin? No 4. Are you currently taking any antibiotics? No If yes, is it prophylactic or for treatment of an infection? N/a 5. Do you have any allergies to latex? Yes 6. Do you have any allergies to seafood or shellfish? No 7. Do you have any allergies to x-ray dye? No 8. Does this procedure require a bobtail driver? No If yes, has patient been notified that a bobtail driver is needed and must be present at check in? N/a 9. Were the pre-procedure instructions explained and provided to the patient? Yes 10. Do you have a pacemaker? No 11. Do you have an internal stimulator of any kind? No If yes, please bring the remote with you to your procedure visit. Antonio Zarco [facility] 09-04-2024 Miscellaneous Notes Procedure(s) being scheduled: Greater Trochanteric Bursal Injection under ultrasound guidance LEFT-SIDED 1.Are you diabetic Yes. Please list the current medications being prescribed no meds. 2. Are you on any blood thinners? No If yes, does it require a hold? No If yes, was approval letter sent? No 3. Are you taking any aspirin? No 4. Are you currently taking any antibiotics? No If yes, is it prophylactic or for treatment of an infection? N/a 5. Do you have any allergies to latex? Yes 6. Do you have any allergies to seafood or shellfish? No 7. Do you have any allergies to x-ray dye? No 8. Does this procedure require a bobtail driver? No If yes, has patient been notified that a bobtail driver is needed and must be present at check in? N/a 9. Were the pre-procedure instructions explained and provided to the patient? Yes 10. Do you have a pacemaker? No 11. Do you have an internal stimulator of any kind? No If yes, please bring the remote with you to your procedure visit. Antonio Zarco documented in this encounter [facility] 09-04-2024 Note HNO ID: [id number] Author: KADEEM HENLEY LPN Service: ? Author Type: LICENSED NURSE Type: Progress Notes Filed: 09/05/2024 14:56 Note Text: What area of pain would you like to focus on today? LBP, L hip What is your pain level in this area from 1-10? 3 Since your last visit, have you had any injections or procedures to treat this pain? N If so, what percent has your pain improved, and for how long did it help? N% for N Have you had any new testing, imaging, or specialist visits related to the pain since your last visit? N Do you have any new significant changes or symptoms related to this pain? N Are you on a blood thinner? N If time allows in this 15 minute visit, are there any new complaints apart from the area above that you would like to address? N- refills Review of Systems Constitutional: Negative for activity change, appetite change, chills and fever. Genitourinary: Negative for difficulty urinating. Musculoskeletal: Positive for arthralgias, back pain, gait problem and neck pain. Negative for joint swelling, myalgias and neck stiffness. Neurological: Negative for weakness, numbness and headaches. Psychiatric/Behavioral: Negative for dysphoric mood, sleep disturbance and suicidal ideas. The patient is not nervous/anxious. [facility] 09-04-2024 History of Present illness Narrative What area of pain would you like to focus on today? LBP, L hip What is your pain level in this area from 1-10? 3 Since your last visit, have you had any injections or procedures to treat this pain? N If so, what percent has your pain improved, and for how long did it help? N% for N Have you had any new testing, imaging, or specialist visits related to the pain since your last visit? N Do you have any new significant changes or symptoms related to this pain? N Are you on a blood thinner? N If time allows in this 15 minute visit, are there any new complaints apart from the area above that you would like to address? N- refills Review of Systems Constitutional: Negative for activity change, appetite change, chills and fever. Genitourinary: Negative for difficulty urinating. Musculoskeletal: Positive for arthralgias, back pain, gait problem and neck pain. Negative for joint swelling, myalgias and neck stiffness. Neurological: Negative for weakness, numbness and headaches. Psychiatric/Behavioral: Negative for dysphoric mood, sleep disturbance and suicidal ideas. The patient is not nervous/anxious. Images from the original note were not included. [facility] Today's Date: 09/04/2024 Name: Akila De Los Santos : 1945 Purpose: Follow-up Patient Evaluation - This is an established patient, returning today for continued evaluation and management of the chief complaint noted below Chief complaint: lumbar pain Pertinent Past Medical History: asthma, DM2, PAD, TIA Pertinent Past Surgeries: No spine Plan at last visit: 06/25/2024 Ashley Fleming APRN.MULTIPLE SLIDE OPERATOR Requested Prescriptions Pending Prescriptions Disp Refills traMADol (ULTRAM) 50 mg tablet 30 tablet 2 Sig: Take 1 tablet by mouth at bedtime as needed for pain for up to 90 days. Patient should start on July 05, 2024. Follow-up: 3 months Depending on response to the above plan, consider: TBD Interval History: Overall pain and functional disability since last visit: Unchanged New Complaints since last visit: No Worsening left hip pain, worsens with ambulation. Limits her ambulation Current Pain Medications: Neuropathics: Lyrica 50 mg TID NSAIDS: Muscle Relaxants: Topicals: Other Prescription or OTC Pain Medications: Tylenol Opioids (when applicable): Tramadol 50 mg daily as needed MEDICATION NAME tramadol STRENGTH 50 LAST FILL DATE 08/08/2024 DATE LAST DOSE TAKEN 09/03/24 (1800) QUANTITY FILLED 30 QUANTITY REMAINING 12 Urine Drug Screen Questionnaire URINE DRUG SCREEN Completed Date 09/04/2024 NA/OIC Questionnaire NA/OIC Completed Date 09/04/2024 Anti-depressants or Mood-Stabilizers: Celexa Anti-Coagulants: None Therapies Attended (Current or Most Recent): No Current Therapies 04/04/2023 07/18/2023 10/10/2023 01/02/2024 03/05/2024 04/27/2024 09/04/2024 AG SPINE COMBINATION Questionnaire URINE DRUG SCREEN URINE DRUG SCREEN URINE DRUG SCREEN URINE DRUG SCREEN URINE DRUG SCREEN URINE DRUG SCREEN URINE DRUG SCREEN Completed Date 04/04/2023 07/18/2023 10/10/2023 01/02/2024 03/05/2024 04/27/2024 09/04/2024 Questionnaire NA/OIC NA/OIC NA/OIC NA/OIC Completed Date 07/18/2023 01/02/2024 03/05/2024 09/04/2024 Comments AMALIA today Questionnaire Opiod Risk Tool Opiod Risk Tool Completed Date 04/04/2023 04/27/2024 Notable Events During Course of Treatment: N/A Treatment History: PAIN PROCEDURES: DATE PROCEDURE IMPROVEMENT 06/11/24 right TFESI S1 80% 11/16/23 Caudal 50-80% 08/09/2022 Bilat SI Joint 85% (01/21/2023 ) 02/01/2022 Caudal CHAZ 70% x 7 months 11/26/2021 Bilat SI Joint 85% x nearly 6 months 04/07/2021 Bilat SI Joint 90% x 6 months Data Reviewed Today: Allergies: ALLERGIES Allergen Reactions Aspirin Shortness of Breath Lisinopril Swelling Latex Rash Penicillins Hives, Rash Sulfamethoxazole Hives Trileptal [Oxcarbaz* Other: See Comments Balance Problems after taking for a few days Social History Tobacco Use Smoking status: Former Types: Cigarettes Smokeless tobacco: Never Vaping Use Vaping status: Never Used Substance Use Topics Alcohol use: Never Drug use: Never 07/16/2024 08/30/2024 INTAKE PAIN ASSESSMENT Are you having pain associated with your visit today? Yes, Provider notified Yes, Provider notified Pain Scales Verbal (Numeric Rating or Visual Analog Scale) Pain Level 7 3 Pain Location Knee-Right Hip-Left Description Aching;Sharp Sharp;Sore;Tenderness Duration Amount of Time 1 2 Duration Units Years Hours Frequency Continuous Continuous Intervention/Comfort measure Medication;Reposition;Relaxation Medication;Relaxation;Heat Comments The pain usually bothers me most when I take a walk. I have to use my cane when I'm going that far and it takes some of the pressure off of my hip. Compliance: PDMP website checked and validated on 09/04/2024 by Kalin Esposito MD All prescriptions have been APPROPRIATELY filled. No suspicious activity was identified. 04/04/2023 07/18/2023 10/10/2023 01/02/2024 03/05/2024 04/27/2024 09/04/2024 AG SPINE COMBINATION Questionnaire URINE DRUG SCREEN URINE DRUG SCREEN URINE DRUG SCREEN URINE DRUG SCREEN URINE DRUG SCREEN URINE DRUG SCREEN URINE DRUG SCREEN Completed Date 04/04/2023 07/18/2023 10/10/2023 01/02/2024 03/05/2024 04/27/2024 09/04/2024 Questionnaire NA/OIC NA/OIC NA/OIC NA/OIC Completed Date 07/18/2023 01/02/2024 03/05/2024 09/04/2024 Comments AMALIA today Questionnaire Opiod Risk Tool Opiod Risk Tool Completed Date 04/04/2023 04/27/2024 (All drug screens are appropriate unless indicated otherwise) Risk Assessment: ISA-7: 11/19/2022 01/02/2024 05/04/2024 ISA - 7 SCORES Score 0 1 6 (0-4) minimal anxiety, (5-9) mild anxiety, (10-14) moderate anxiety, (15-21) severe anxiety PHQ-9: 04/08/2021 02/15/2022 01/02/2024 PHQ-9 Score 0 3 1 (0-4) minimal depression, (5-9) mild depression, (10-14) moderate depression, (15-19) moderately severe depression, (20-27) severe depression Diagnostic Studies: Relevant Imaging: MRI Spine Report MRI CERVICAL SPINE WO IVCON Exam End: 08/25/2022 3:08 PM (Final result) Narrative: * * *Final Report* * * DATE OF EXAM: Aug 25 2022 3:08PM Cynthia Chris - MRI CERVICAL SPINE WO IVCON / PROCEDURE REASON: multiple diagnoses * * * * Physician Interpretation * * * * EXAMINATION: MRI CERVICAL SPINE WO IVCON CLINICAL HISTORY: Spondylolysis of cervical region. Spinal stenosis of cervical region . TECHNIQUE: Routine cervical spine MR protocol without gadolinium. MQ: [id number] COMPARISON: Cervical spine radiographs 07/30/2022 RESULT: Counting reference: Craniocervical junction. Anatomic Variants: None. Localizer images: No additional findings. Alignment: There is straightening of normal cervical lordosis due to spondylolisthesis. There is mild retrolisthesis of C3 on C4 and C6 on C7. Craniocervical junction: Craniocervical junction is normal. Cord: The visualized cord is within normal limits of signal intensity and morphology. Bone marrow signal/fracture: No evidence of pathologic marrow infiltration. No evidence of prior fracture. There is moderate disc space height loss at C5-C6 and C6-C7. There are Modic type II degenerative endplate changes at C5-C6 and C6-C7 with vertebral body osteophyte formation. Cervical soft tissues: The paraspinal soft tissues are within normal limits. C2-C3: Canal and foramina are patent. C3-C4: Disc osteophyte complex effaces the ventral CSF contacting the ventral cord and along with ligamentum flavum thickening causes moderate stenosis of the spinal canal. There is severe left and moderate right neural foraminal narrowing due to uncovertebral and facet joint degenerative change. C4-C5: Disc osteophyte complex causes mild narrowing of the spinal canal. There is severe narrowing of both neural foramina due to uncovertebral arthropathy. C5-C6: Disc osteophyte complex impresses on the ventral thecal sac but without narrowing of the spinal canal. There is severe left and moderate right neural foraminal narrowing due to uncovertebral arthropathy. C6-C7: Disc osteophyte complex impresses on the ventral thecal sac with minimal narrowing of the spinal canal. There is severe left and moderate right neural foraminal narrowing due to uncovertebral arthropathy. C7-T1: Canal and foramina are patent. Impression: IMPRESSION: 1. Multilevel degenerative cervical spondylosis with straightening of cervical lordosis. 2. At C3-C4 there is moderate stenosis of the spinal canal and severe left neural foraminal stenosis. 3. There is multilevel high-grade neural foraminal stenosis as detailed. Anatomic Variant: None. Assume 7 cervical vertebrae with counting from the craniocervical junction. Can Machine Operator[facility] Transcribe Date/Time: Aug 26 2022 3:21P Dictated by : TREVOR MELÉNDEZ MD This examination was interpreted and the report reviewed and electronically signed by: TREVOR MELÉNDEZ MD on Aug 26 2022 3:32PM EST X-ray Rt. Knee 07/16/2024 - Arvind Haider, DO 3 views of right knee with comparison views of opposite knee. No fractures/dislocations/tumors noted. Tricompartmental osteoarthritis with lateral tilt of the patella within the patellofemoral compartment. Assessment: Moderate OA right knee MRI Lumbar 05/20/21: Electrodiagnostic Study (EMG): None Recent Labs: Creatinine Date Value Ref Range Status 01/09/2024 0.85 0.58 - 0.96 mg/dL Final No results found for: EGFR Glucose, Point of Care Date Value Ref Range Status 06/11/2024 139 (A) 74 - 99 mg/dL Final Comment: Location:[facility], [address] [place] [address], [facility] The Accu-Chek Inform II glucose meter has not been approved for testing on patients receiving intensive medical intervention or therapy and results from this point of care glucose test should not be used for patient management decisions in these cases. Inaccurate results may also occur from other interfering factors, such as N-acetylcysteine (blood concentrations of greater than 5mg/dL), galactose, extremes of hematocrit (<10 or >65), or high doses of ascorbic acid (vitamin C) greater than 3mg/dL. Consider alternate testing mechanisms (e.g. core lab, blood gas instrument) in the above situations. Current Medications, Past Medical History, Past Surgical History, Family History, Social History and Review of Systems: On today's date, noted above, I have confirmed and edited as necessary, the PFSH and ROS obtained by others. Physical Exam: 09/04/24 1454 Pulse: 63 Resp: 17 SpO2: 96% LUMBAR MUSCULOSKELETAL/NEURO EXAM Inspection: - Symmetric without atrophy Gait: - Antalgic Strength: LEFT RIGHT Hip flexion (L2) 5 5 Knee extension (L3) 5 5 Knee flexion (L4): 5 5 Dorsiflexion (L5) 5 5 Plantarflexion (S1): 5 5 Neural Tension Signs: -Straight Leg Exam Negative Bilateral lower limb(s) Sensation: -Hyperesthesia to light touch of the right anterior thigh extending to the knee Reflexes: LEFT RIGHT Patellar (L4) Normal 2+ Normal 2+ Achilles (S1) Normal 2+ Normal 2+ Clonus Negative Negative Hip Range of Motion: - Normal with None pain at end range internal rotation - Normal with None pain at end range external rotation + tenderness to palpation left GTB IMPRESSION: 79 year old female presents with with significant past medical history for low back decompressive surgeries x 3, scoliosis, who presents with complaint(s) of ongoing axial low back pain, lower limb radicular symptoms due to spinal stenosis. Of note: has been using poppy seed dressing last couple weeks, concerned aobut this as it relates to UDS She has evidence of left greater trochanteric bursitis. Will order steroid injection Patient is being treated for the conditions noted above, who presents today for medication refill. Refill without adjustments were provided after verifying the history noted above, performing a focused physical examination, and reviewing available compliance data including (where available) the PDMP/OARRS system, pill counts, toxicology screens. OPIOID ASSESSMENT: No signs of abuse, no adverse events noted, patient experiences significant benefit of analgesia, and patient demonstrates increased activity while on these medications. Alternatives to opioid therapy have been discussed. The patient has demonstrated functional improvement and is on the minimum dose which maintains that improvement. The patient has been evaluated for risks of opioid related harms, including using a standardized tool (ORT) for evaluation of the risk of addiction. Risks of opioid therapy have been discussed, including potential for addiction and risk of overdose and risks to others who may obtain access to the patient's medications. The patient understands that opioid therapy will be tapered to lower dosages or discontinued if benefits do not outweigh the risks of treatment. Need for opioids was evaluated today and will be reassessed at next office visit in 30-60 days. Diagnoses: (Z79.891) Encounter for long-term use of opiate analgesic (primary encounter diagnosis) (M70.62) Greater trochanteric bursitis, left (M96.1) Post laminectomy syndrome (M54.16) Lumbar radiculopathy PLAN: Akila De Los Santos would benefit from the following to reach personal goals for decreasing pain, improving function and work participation, and/or improving quality of life: Medications: Requested Prescriptions Signed Prescriptions Disp Refills traMADol (ULTRAM) 50 mg tablet 30 tablet 1 Sig: Take 1 tablet by mouth at bedtime as needed for pain for up to 60 days. Patient should start on September 07, 2024. Interventional Procedures: Greater Trochanteric Bursal Injection under ultrasound guidance LEFT-SIDED [employer] Lead Needed: Bursa Injection - NO (Exception: Ischial Bursa, Psoas Bursa - YES) Anticoagulant - Hold Needed: N/A (Not currently on Anticoagulants) Anticoagulant - Currently Taking: None Allergies (relevant): None Scheduling - Mobility (Can Patient independently transfer on/off an OR or Procedure table?): YES (May schedule at any location) Scheduling - Additional Info: None Studies: None Functional Restorationism: NONE Referrals: No additional considerations at present Follow-up: before 11/06/2024 for med refills Depending on response to the above plan, consider: TBD Patient Education, Compliance and Clinic Policies Reviewed and/or Discussed Today: None Attribution: In addition to reviewing the information noted above, some elements copied from my most recent clinical note(s), including the physical exam (completed in entirety today), and the impression and plan sections, have been updated where appropriate. All reflect current medical decision making from today's date. Kalin Esposito MD Pain Management [facility] documented in this encounter [facility] 09-03-2024 Note HNO ID: [id number] Author: KALIN ESPOSITO MD Service: ? 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 Patient should start on July 05, 2024. Follow-up: 3 months Depending on response to the above plan, consider: TBD Interval History: Overall pain and functional disability since last visit: Unchanged New Complaints since last visit: No Worsening left hip pain, worsens with ambulation. Limits her ambulation Current Pain Medications: Neuropathics: Lyrica 50 mg TID NSAIDS: Muscle Relaxants: Topicals: Other Prescription or OTC Pain Medications: Tylenol Opioids (when applicable): Tramadol 50 mg daily as needed MEDICATION NAME tramadol STRENGTH 50 LAST FILL DATE 08/08/2024 DATE LAST DOSE TAKEN 09/03/24 (1800) QUANTITY FILLED 30 QUANTITY REMAINING 12 Urine Drug Screen Questionnaire URINE DRUG SCREEN Completed Date 09/04/2024 NA/OIC Questionnaire NA/OIC Completed Date 09/04/2024 Anti-depressants or Mood-Stabilizers: Celexa Anti-Coagulants: None Therapies Attended (Current or Most Recent): No Current Therapies 04/04/2023 07/18/2023 10/10/2023 01/02/2024 03/05/2024 04/27/2024 09/04/2024 AG SPINE COMBINATION Questionnaire URINE DRUG SCREEN URINE DRUG SCREEN URINE DRUG SCREEN URINE DRUG SCREEN URINE DRUG SCREEN URINE DRUG SCREEN URINE DRUG SCREEN Completed Date 04/04/2023 07/18/2023 10/10/2023 01/02/2024 03/05/2024 04/27/2024 09/04/2024 Questionnaire NA/OIC NA/OIC NA/OIC NA/OIC Completed Date 07/18/2023 01/02/2024 03/05/2024 09/04/2024 Comments AMALIA today Questionnaire Opiod Risk Tool Opiod Risk Tool Completed Date 04/04/2023 04/27/2024 Notable Events During Course of Treatment: N/A Treatment History: PAIN PROCEDURES: DATE PROCEDURE IMPROVEMENT 06/11/24 right TFESI S1 80% 11/16/23 Caudal 50-80% 08/09/2022 Bilat SI Joint 85% (01/21/2023 ) 02/01/2022 Caudal CHAZ 70% x 7 months 11/26/2021 Bilat SI Joint 85% x nearly 6 months 04/07/2021 Bilat SI Joint 90% x 6 months Data Reviewed Today: Allergies: ALLERGIES Allergen Reactions Aspirin Shortness of Breath Lisinopril Swelling Latex Rash Penicillins Hives, Rash Sulfamethoxazole Hives Trileptal [Oxcarbaz* Other: See Comments Balance Problems after taking for a few days Social History Tobacco Use Smoking status: Former Types: Cigarettes Smokeless tobacco: Never Vaping Use Vaping status: Never Used Substance Use Topics Alcohol use: Never Drug use: Never 07/16/2024 08/30/2024 INTAKE PAIN ASSESSMENT Are you having pain associated with your visit today? Yes, Provider notified Yes, Provider notified Pain Scales Verbal (Numeric Rating or Visual Analog Scale) Pain Level 7 3 Pain Location Knee-Right Hip-Left Description Aching;Sharp Sharp;Sore;Tenderness Duration Amount of Time 1 2 Duration Units Years Hours Frequency Continuous Continuous Intervention/Comfort measure Medication;Reposition;Relaxation Medication;Relaxation;Heat Comments The pain usually bothers me most when I take a walk. I have to use my cane when I'm going that far and it takes some of the pressure off of my hip. Compliance: PDMP website checked and validated on 09/04/2024 by Kalin Esposito MD All prescriptions have been APPROPRIATELY filled. No suspicious activity was identified. 04/04/2023 07/18/2023 10/10/2023 01/02/2024 03/05/2024 04/27/2024 09/04/2024 AG SPINE COMBINATION Questionnaire URINE DRUG SCREEN URINE DRUG SCREEN URINE DRUG SCREEN URINE DRUG SCREEN URINE DRUG SCREEN URINE DRUG SCREEN URINE DRUG SCREEN Completed Date 04/04/2023 07/18/2023 10/10/2023 01/02/2024 03/05/2024 04/27/2024 09/04/2024 Questionnaire NA/OIC NA/OIC NA/OIC NA/OIC Completed Date 07/18/2023 01/02/2024 03/05/2024 09/04/2024 Comments AMALIA today Questionnaire Opiod Risk Tool Opiod Risk Tool Completed Date 04/04/2023 04/27/2024 (All drug screens are appropriate unless indicated otherwise) Risk Assessment: ISA-7: 11/19/2022 01/02/2024 05/04/2024 ISA - 7 SCORES Score 0 1 6 (0-4) minimal anxiety, (5-9) mild anxiety, (10-14) moderate anxiety, (15-21) severe anxiety PHQ-9: 04/08/2021 (more content not included)... [facility] 08-06-2024 Note Addended by: BETTY BUENO on: 08/06/2024 11:09 AM Modules accepted: Orders [facility] 08-06-2024 Miscellaneous Notes Addended by: BETTY BUENO on: 08/06/2024 11:09 AM Modules accepted: Orders documented in this encounter [facility] 07-24-2024 Telephone encounter Note Order received for blood pressure cuff. Faxed order, OV notes and demographics to [facility] [phone]. Lakia Sutherland LPN [facility] 07-24-2024 Miscellaneous Notes Order received for blood pressure cuff. Faxed order, OV notes and demographics to [facility] [phone]. Lakia Sutherland LPN documented in this encounter [facility] 07-16-2024 Note HNO ID: [id number] Author: ARVIND HAIDER, DO Service: ? Author Type: Physician Type: Progress Notes Filed: 07/16/2024 15:55 Note Text: HPI: Akila De Los Santos presented to the Orthopedics department for follow-up regarding right knee pain. Patient presents for evaluation of right knee pain. She states that this has been going on for about 1 year. She has been diagnosed with osteoarthritis in the past. She states that her symptoms have been gradually getting worse as of recently. She did see [facility] somewhat recently and had x-rays and an MRI completed. She does present today with the MRI report. This does report tenosynovitis of the joint with a large Lindsey's cyst as well as meniscal tearing. Patient states that the pressure in the back of her knee is significant and she has difficulty bearing weight because of the pain. PAST MEDICAL HISTORY Diagnosis Date Asthma Diabetes mellitus (HCC) DJD (degenerative joint disease) Left hand pain Osteoarthritis of multiple joints PAD (peripheral artery disease) (HCC) TIA (transient ischemic attack) PAST SURGICAL HISTORY Procedure Laterality Date CATARACT EXTRACTION HX Left 11/2016 CATARACT EXTRACTION HX Right 11/2018 TOTAL ABDOM HYSTERECTOMY Social History Tobacco Use Smoking status: Former Types: Cigarettes Smokeless tobacco: Never Vaping Use Vaping status: Never Used Substance Use Topics Alcohol use: Never Drug use: Never Current Outpatient Medications Medication Sig citalopram (CELEXA) 20 mg tablet Take 1 tablet by mouth once daily rosuvastatin (CRESTOR) 10 mg tablet TAKE 1 TABLET BY MOUTH ONCE DAILY AT BEDTIME potassium chloride 20 mEq TbER Take 2 tablets by mouth twice daily solifenacin (VESICARE) 5 mg tablet Take 1 tablet by mouth once daily traMADol (ULTRAM) 50 mg tablet Take 1 tablet by mouth at bedtime as needed for pain for up to 90 days. Patient should start on July 05, 2024. montelukast (SINGULAIR) 10 mg tablet TAKE 1 TABLET BY MOUTH ONCE DAILY AT BEDTIME primidone (MYSOLINE) 50 mg tablet TAKE 1 TABLET BY MOUTH ONCE DAILY AT BEDTIME indapamide (LOZOL) 2.5 mg tablet Take 1 tablet by mouth once daily pregabalin (LYRICA) 75 mg capsule Take 1 capsule by mouth three times a day for 180 days. losartan (COZAAR) 100 mg tablet Take 1 tablet by mouth once daily. fluticasone-salmeterol (WIXELA INHUB) 500-50 mcg/dose dsdv Inhale 1 Puff as instructed two times a day. albuterol (PROVENTIL) 2.5 mg /3 mL (0.083 %) nebulizer solution Use 3 mL via nebulizer every 4 hours as needed for wheezing/shortness of breath. albuterol HFA (VENTOLIN HFA) 90 mcg/actuation inhaler Inhale 2 Puffs as instructed every 4 hours as needed for wheezing/shortness of breath. valACYclovir (VALTREX) 1 gram tablet Take 1 tablet by mouth once daily amLODIPine (NORVASC) 10 mg tablet Take 1 tablet by mouth once daily. ascorbic acid, vitamin C, (VITAMIN C) 500 mg tablet 1 tab(s) orally once a day for 30 day(s) betamethasone dipropionate 0.05 % ointment Apply to affected area twice daily. No current facility-administered medications for this visit. ALLERGIES Allergen Reactions Aspirin Shortness of Breath Lisinopril Swelling Latex Rash Penicillins Hives, Rash Sulfamethoxazole Hives Trileptal [Oxcarbaz* Other: See Comments Balance Problems after taking for a few days Resp 20 Ht 5' 1 (1.55m) Wt 147 lb (66.7kg) BMI 27.79 kg/(m2). ROS: Denies any significant change to relevant ROS Review of Systems EXAM: General: Alert and oriented ?3 in no apparent distress. Ortho Exam Knee right: Appearance abnormal large posterior swelling/Bakers cyst , ROM normal, effusion 1+, straight leg raise: patient Able, TTP popliteal fossa ,Bethany Negative medial and lateral Bethany's test, varus stress test Negative degrees, valgus stress test Negative, Mikal's test Negative, Anterior Drawer negative, Posterior Drawer negative, Lower extremity neuro exam: sensation to soft touch intact over the LE bilaterally. Lower extremity vascular exam: no edema over LE. IMAGING: Recent Results (from the past 36 hours) XR KNEE POST OP 3V AP/LAT/MERCHANT RIGHT Narrative 3 views of right knee with comparison views of opposite knee. No fractures/dislocations/tumors noted. Tricompartmental osteoarthritis with lateral tilt of the patella within the patellofemoral compartment. Assessment: Moderate OA right knee. ASSESSMENT: (M25.561, G89.29) Chronic pain of right knee (primary encounter diagnosis) (M71.21) Synovial cyst of right popliteal space (M17.11) Primary osteoarthritis of right knee PLAN: Reviewed patient's x-ray which does show advanced osteoarthritis. I did also review the radiology report regarding her MRI which does show meniscal tearing as well as a large Lindsey's cyst. We did discuss treatment options including drainage of the Lindsey's cyst today as it is very full and causing patient a lot of discomfort. (more content not included)... [facility] 07-16-2024 History of Present illness Narrative Associated Order(s): Large Joint Arthro/Inj: R Lindsey Cyst Post-Procedure Diagnose(s): Primary osteoarthritis of right knee; Synovial cyst of right popliteal space; Chronic pain of right knee HPI: Akila De Los Santos presented to the Orthopedics department for follow-up regarding right knee pain. Patient presents for evaluation of right knee pain. She states that this has been going on for about 1 year. She has been diagnosed with osteoarthritis in the past. She states that her symptoms have been gradually getting worse as of recently. She did see [facility] somewhat recently and had x-rays and an MRI completed. She does present today with the MRI report. This does report tenosynovitis of the joint with a large Lindsey's cyst as well as meniscal tearing. Patient states that the pressure in the back of her knee is significant and she has difficulty bearing weight because of the pain. PAST MEDICAL HISTORY Diagnosis Date Asthma Diabetes mellitus (HCC) DJD (degenerative joint disease) Left hand pain Osteoarthritis of multiple joints PAD (peripheral artery disease) ([facility]) TIA (transient ischemic attack) PAST SURGICAL HISTORY Procedure Laterality Date CATARACT EXTRACTION HX Left 11/2016 CATARACT EXTRACTION HX Right 11/2018 TOTAL ABDOM HYSTERECTOMY Social History Tobacco Use Smoking status: Former Types: Cigarettes Smokeless tobacco: Never Vaping Use Vaping status: Never Used Substance Use Topics Alcohol use: Never Drug use: Never Current Outpatient Medications Medication Sig citalopram (CELEXA) 20 mg tablet Take 1 tablet by mouth once daily rosuvastatin (CRESTOR) 10 mg tablet TAKE 1 TABLET BY MOUTH ONCE DAILY AT BEDTIME potassium chloride 20 mEq TbER Take 2 tablets by mouth twice daily solifenacin (VESICARE) 5 mg tablet Take 1 tablet by mouth once daily traMADol (ULTRAM) 50 mg tablet Take 1 tablet by mouth at bedtime as needed for pain for up to 90 days. Patient should start on July 05, 2024. montelukast (SINGULAIR) 10 mg tablet TAKE 1 TABLET BY MOUTH ONCE DAILY AT BEDTIME primidone (MYSOLINE) 50 mg tablet TAKE 1 TABLET BY MOUTH ONCE DAILY AT BEDTIME indapamide (LOZOL) 2.5 mg tablet Take 1 tablet by mouth once daily pregabalin (LYRICA) 75 mg capsule Take 1 capsule by mouth three times a day for 180 days. losartan (COZAAR) 100 mg tablet Take 1 tablet by mouth once daily. fluticasone-salmeterol (WIXELA INHUB) 500-50 mcg/dose dsdv Inhale 1 Puff as instructed two times a day. albuterol (PROVENTIL) 2.5 mg /3 mL (0.083 %) nebulizer solution Use 3 mL via nebulizer every 4 hours as needed for wheezing/shortness of breath. albuterol HFA (VENTOLIN HFA) 90 mcg/actuation inhaler Inhale 2 Puffs as instructed every 4 hours as needed for wheezing/shortness of breath. valACYclovir (VALTREX) 1 gram tablet Take 1 tablet by mouth once daily amLODIPine (NORVASC) 10 mg tablet Take 1 tablet by mouth once daily. ascorbic acid, vitamin C, (VITAMIN C) 500 mg tablet 1 tab(s) orally once a day for 30 day(s) betamethasone dipropionate 0.05 % ointment Apply to affected area twice daily. No current facility-administered medications for this visit. ALLERGIES Allergen Reactions Aspirin Shortness of Breath Lisinopril Swelling Latex Rash Penicillins Hives, Rash Sulfamethoxazole Hives Trileptal [Oxcarbaz* Other: See Comments Balance Problems after taking for a few days Resp 20 Ht 5' 1 (1.55m) Wt 147 lb (66.7kg) BMI 27.79 kg/(m^2). ROS: Denies any significant change to relevant ROS Review of Systems EXAM: General: Alert and oriented 3 in no apparent distress. Ortho Exam Knee right: Appearance abnormal large posterior swelling/Bakers cyst , ROM normal, effusion 1+, straight leg raise: patient Able, TTP popliteal fossa ,Bethany Negative medial and lateral Bethany's test, varus stress test Negative degrees, valgus stress test Negative, Mikal's test Negative, Anterior Drawer negative, Posterior Drawer negative, Lower extremity neuro exam: sensation to soft touch intact over the LE bilaterally. Lower extremity vascular exam: no edema over LE. IMAGING: Recent Results (from the past 36 hours) XR KNEE POST OP 3V AP/LAT/MERCHANT RIGHT Narrative 3 views of right knee with comparison views of opposite knee. No fractures/dislocations/tumors noted. Tricompartmental osteoarthritis with lateral tilt of the patella within the patellofemoral compartment. Assessment: Moderate OA right knee. ASSESSMENT: (M25.561, G89.29) Chronic pain of right knee (primary encounter diagnosis) (M71.21) Synovial cyst of right popliteal space (M17.11) Primary osteoarthritis of right knee PLAN: Reviewed patient's x-ray which does show advanced osteoarthritis. I did also review the radiology report regarding her MRI which does show meniscal tearing as well as a large Lindsey's cyst. We did discuss treatment options including drainage of the Lindsey's cyst today as it is very full and causing patient a lot of discomfort. She would like to proceed with this. Please for my procedure note below. Patient can continue following up with me if her symptoms return. Will continue to monitor patient for Chronic pain of right knee (primary encounter diagnosis) Synovial cyst of right popliteal space Primary osteoarthritis of right knee, patient to schedule visit as per follow up discussed. Injection performed as detailed below: Large Joint Arthro/Inj: R Lindsey Cyst 07/16/2024 3:53 PM The procedure site was prepped in the usual sterile fashion. Site: R Lindsey Cyst Aspirate: 67 mL yellow and serous Details:Musculoskeletal ultrasound was utilized to successfully localize placement of the injection needle at the appropriate site. Ultrasound images demonstrating local vasculature and demonstrating injection of solution were saved. Medications: 40 mg triamcinolone acetonide 40 mg/mL Anesthetics: 4 mL lidocaine (PF) 10 mg/mL (1 %); 5 mL lidocaine (PF) 10 mg/mL (1 %) Outcome: Tolerated well, no immediate complications Post-injection instructions were reviewed with the patient and the patient voiced understanding of these instructions. Informed Consent Consent Obtained: Verbal [place] Protocol A moment to CARE was completed. SIGN IN Personnel directly involved with the procedure wore the appropriate PPE. Special Equipment: N/A Patient/Surrogate Stated/Verified: Patient name and Intended procedure TIME OUT Relevant labs, photos, and/or imaging studies have been reviewed. Correct side/site marked and visible. Medications required for procedure verified. Arvind Haider DO This nurse prepared an injection of 4ml Lidocaine and 1ml Kenalog with a 22g needle for injection of right knee and another injection of 5ml Lidocaine with a 27g needle for injection of right knee and handed both injections to Dr. Haider.Eloise Juan LPN July 16, 2024 3:33 PM documented in this encounter [facility] 07-16-2024 Note HNO ID: [id number] Author: ELOISE JUAN LPN Service: ? Author Type: LICENSED NURSE Type: Progress Notes Filed: 07/16/2024 15:55 Note Text: This nurse prepared an injection of 4ml Lidocaine and 1ml Kenalog with a 22g needle for injection of right knee and another injection of 5ml Lidocaine with a 27g needle for injection of right knee and handed both injections to Dr. Haider.Eloise Juan LPN July 16, 2024 3:33 PM [facility] 07-13-2024 Telephone encounter Note Order received for BP Cuff. Awaiting completed OV notes. Awaiting OV notes from 07/11/2024. [facility] 07-13-2024 Miscellaneous Notes Order received for BP Cuff. Awaiting completed OV notes. Awaiting OV notes from 07/11/2024. documented in this encounter [facility] 07-11-2024 History of Present illness Narrative Images from the original note were not included. Betty Bueno M.D. [facility] [address] [place] [address] / [facility] [address] [place] [address] Visit Date: July 11, 2024 Name: Akila De Los Santos Date of : 1945 MRN/E #: [id number] Chief Complaint: No chief complaint on file. Subjective Akila De Los Santos is a 79 year old female here with the following complaint(s): The history is provided by the patient. Diabetes She presents for her follow-up diabetic visit. She has type 2 diabetes mellitus. There are no hypoglycemic associated symptoms. Pertinent negatives for hypoglycemia include no headaches. Associated symptoms include blurred vision (a little. Got glasses; thinks it will help.) and polyuria. Pertinent negatives for diabetes include no chest pain, no fatigue, no foot paresthesias, no polydipsia, no polyphagia and no weight loss. There are no hypoglycemic complications. Hypertension Associated symptoms include blurred vision (a little. Got glasses; thinks it will help.). Pertinent negatives include no anxiety, chest pain, headaches, malaise/fatigue, palpitations, peripheral edema ((R knee)) or shortness of breath. There are no associated agents to hypertension. R knee pain Wants to transfer [facility] from [facility]. Going to food pantry that is near to her. Hemoglobin A1C (%) Date Value 01/09/2024 7.5 12/16/2022 7.6 Hemoglobin A1C (POCT) (%) Date Value 07/11/2024 7.7 04/11/2024 7.0 10/24/2023 7.8 05/30/2023 7.3 07/26/2022 7.7 FH: Dad- [place], (in 60s) Brother- CABGx 4 (70) Mo- a-fib. Review of Systems Constitutional: Negative for fatigue, malaise/fatigue and weight loss. Eyes: Positive for blurred vision (a little. Got glasses; thinks it will help.). Respiratory: Negative for shortness of breath. Cardiovascular: Negative for chest pain and palpitations. Endocrine: Positive for polyuria. Negative for polydipsia and polyphagia. Neurological: Negative for headaches. Social History Tobacco Use Smoking status: Former Types: Cigarettes Smokeless tobacco: Never Vaping Use Vaping status: Never Used Substance Use Topics Alcohol use: Never Drug use: Never ALLERGIES Allergen Reactions Aspirin Shortness of Breath Lisinopril Swelling Latex Rash Penicillins Hives, Rash Sulfamethoxazole Hives Trileptal [Oxcarbaz* Other: See Comments Balance Problems after taking for a few days Current Outpatient Medications Medication Sig citalopram (CELEXA) 20 mg tablet Take 1 tablet by mouth once daily rosuvastatin (CRESTOR) 10 mg tablet TAKE 1 TABLET BY MOUTH ONCE DAILY AT BEDTIME potassium chloride 20 mEq TbER Take 2 tablets by mouth twice daily solifenacin (VESICARE) 5 mg tablet Take 1 tablet by mouth once daily traMADol (ULTRAM) 50 mg tablet Take 1 tablet by mouth at bedtime as needed for pain for up to 90 days. Patient should start on July 05, 2024. montelukast (SINGULAIR) 10 mg tablet TAKE 1 TABLET BY MOUTH ONCE DAILY AT BEDTIME primidone (MYSOLINE) 50 mg tablet TAKE 1 TABLET BY MOUTH ONCE DAILY AT BEDTIME indapamide (LOZOL) 2.5 mg tablet Take 1 tablet by mouth once daily pregabalin (LYRICA) 75 mg capsule Take 1 capsule by mouth three times a day for 180 days. losartan (COZAAR) 100 mg tablet Take 1 tablet by mouth once daily. fluticasone-salmeterol (WIXELA INHUB) 500-50 mcg/dose dsdv Inhale 1 Puff as instructed two times a day. albuterol (PROVENTIL) 2.5 mg /3 mL (0.083 %) nebulizer solution Use 3 mL via nebulizer every 4 hours as needed for wheezing/shortness of breath. albuterol HFA (VENTOLIN HFA) 90 mcg/actuation inhaler Inhale 2 Puffs as instructed every 4 hours as needed for wheezing/shortness of breath. valACYclovir (VALTREX) 1 gram tablet Take 1 tablet by mouth once daily amLODIPine (NORVASC) 10 mg tablet Take 1 tablet by mouth once daily. ascorbic acid, vitamin C, (VITAMIN C) 500 mg tablet 1 tab(s) orally once a day for 30 day(s) betamethasone dipropionate 0.05 % ointment Apply to affected area twice daily. No current facility-administered medications for this visit. I have confirmed and edited as necessary the chief complaint, medications, past medical, family and social histories. Objective 07/11/24 1315 BP: 123/73 Pulse: 83 Temp: 36.4 C (97.5 F) Weight: 147 lb (66.7 kg) Body mass index is 27.78 kg/m . Physical Exam Vitals and nursing note reviewed. Constitutional: Appearance: She is not ill-appearing. HENT: Head: Normocephalic and atraumatic. Right Ear: External ear normal. Left Ear: External ear normal. Nose: Nose normal. Mouth/Throat: Pharynx: No oropharyngeal exudate. Eyes: General: No scleral icterus. Conjunctiva/sclera: Conjunctivae normal. Pupils: Pupils are equal, round, and reactive to light. Cardiovascular: Rate and Rhythm: Normal rate and regular rhythm. Heart sounds: Normal heart sounds. No murmur heard. No friction rub. No gallop. Pulmonary: Effort: Pulmonary effort is normal. No respiratory distress. Breath sounds: Normal breath sounds. No wheezing or rales. Abdominal: General: Bowel sounds are normal. There is no distension. Palpations: Abdomen is soft. Tenderness: There is no abdominal tenderness. There is no guarding or rebound. Musculoskeletal: General: No tenderness or deformity. Normal range of motion. Skin: General: Skin is warm and dry. Coloration: Skin is not pale. Findings: No erythema or rash. Neurological: Mental Status: She is alert. Psychiatric: Mood and Affect: Affect normal. Feet:Shoes and socks removed, No deformities, ulcers, calluses, normal distal pulses, sensitive to 10 gm monofilament, and vibratory perception slightly decreased. Results for orders placed or performed in visit on 07/11/24 HEMOGLOBIN A1C (POC) Result Value Ref Range Hemoglobin A1C (POCT) 7.7 (A) 4.3 - 5.6 % Assessment / Plan Akila was seen today for diabetes. Diagnoses and all orders for this visit: Type 2 diabetes mellitus 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) - ALBUMIN/CREATININE RATIO, URINE; Future - LIPID PANEL, FASTING; Future - LIPOPROTEIN (A); Future Primary hypertension - AUTOMATIC BP MONITOR, DIAL - COMPREHENSIVE METABOLIC PANEL; Future Synovial cyst of right popliteal space - CONSULT TO ORTHOPAEDICS; Future Chronic pain of right knee - CONSULT TO ORTHOPAEDICS; Future Mixed hyperlipidemia - LIPID PANEL, FASTING; Future Other orders - HEMOGLOBIN A1C (POC) ASSESSMENT/PLAN: 1. Type 2 diabetes mellitus 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) - ICD9: 250.00, ICD10: E11.9 (primary diagnosis) - Worsening control - Continue current medications - ALBUMIN/CREATININE RATIO, URINE - LIPID PANEL, FASTING - LIPOPROTEIN (A) 2. Primary hypertension - ICD9: 401.9, ICD10: I10 - Controlled - Continue current medications - Recommend home blood pressure monitoring, to bring results to next visit - Encouraged sodium restriction, DASH or Mediterranean diet - Recommend regular aerobic exercise - AUTOMATIC BP MONITOR, DIAL - COMPREHENSIVE METABOLIC PANEL 3. Synovial cyst of right popliteal space - ICD9: 727.51, ICD10: M71.21 - CONSULT TO ORTHOPAEDICS 4. Chronic pain of right knee - ICD9: 719.46, 338.29, ICD10: M25.561, G89.29 - Wants to see new Ortho - CONSULT TO ORTHOPAEDICS 5. Mixed hyperlipidemia - ICD9: 272.2, ICD10: E78.2 - Control undetermined, due for labs - Continue current medications - Counseled on healthy diet and regular exercise - LIPID PANEL, FASTING Betty Bueno MD Return in about 3 months (around 10/11/2024). Discussed the above with the patient using shared decision-making. The patient is in agreement with the diagnostic and treatment plans. Provider: Betty Bueno MD Date: July 11, 2024 Time: 12:22 PM documented in this encounter [facility] 07-11-2024 Note HNO ID: [id number] Author: BETTY BUENO MD Service: ? Author Type: Physician Type: Progress Notes Filed: 07/18/2024 06:35 Note Text: Betty Bueno M.D. [facility] [address] [facility] / [address] [place] [address] Visit Date: July 11, 2024 Name: Akila De Los Santos Date of : 1945 MRN/E #: [id number] Chief Complaint: No chief complaint on file. Subjective Akila De Los Santos is a 79 year old female here with the following complaint(s): The history is provided by the patient. Diabetes She presents for her follow-up diabetic visit. She has type 2 diabetes mellitus. There are no hypoglycemic associated symptoms. Pertinent negatives for hypoglycemia include no headaches. Associated symptoms include blurred vision (a little. Got glasses; thinks it will help.) and polyuria. Pertinent negatives for diabetes include no chest pain, no fatigue, no foot paresthesias, no polydipsia, no polyphagia and no weight loss. There are no hypoglycemic complications. Hypertension Associated symptoms include blurred vision (a little. Got glasses; thinks it will help.). Pertinent negatives include no anxiety, chest pain, headaches, malaise/fatigue, palpitations, peripheral edema ((R knee)) or shortness of breath. There are no associated agents to hypertension. R knee pain Wants to transfer [facility] from [facility]. Going to food pantry that is near to her. Hemoglobin A1C (%) Date Value 01/09/2024 7.5 12/16/2022 7.6 Hemoglobin A1C (POCT) (%) Date Value 07/11/2024 7.7 04/11/2024 7.0 10/24/2023 7.8 05/30/2023 7.3 07/26/2022 7.7 FH: Dad- [place], (in 60s) Brother- CABGx 4 (70) Mo- a-fib. Review of Systems Constitutional: Negative for fatigue, malaise/fatigue and weight loss. Eyes: Positive for blurred vision (a little. Got glasses; thinks it will help.). Respiratory: Negative for shortness of breath. Cardiovascular: Negative for chest pain and palpitations. Endocrine: Positive for polyuria. Negative for polydipsia and polyphagia. Neurological: Negative for headaches. Social History Tobacco Use Smoking status: Former Types: Cigarettes Smokeless tobacco: Never Vaping Use Vaping status: Never Used Substance Use Topics Alcohol use: Never Drug use: Never ALLERGIES Allergen Reactions Aspirin Shortness of Breath Lisinopril Swelling Latex Rash Penicillins Hives, Rash Sulfamethoxazole Hives Trileptal [Oxcarbaz* Other: See Comments Balance Problems after taking for a few days Current Outpatient Medications Medication Sig citalopram (CELEXA) 20 mg tablet Take 1 tablet by mouth once daily rosuvastatin (CRESTOR) 10 mg tablet TAKE 1 TABLET BY MOUTH ONCE DAILY AT BEDTIME potassium chloride 20 mEq TbER Take 2 tablets by mouth twice daily solifenacin (VESICARE) 5 mg tablet Take 1 tablet by mouth once daily traMADol (ULTRAM) 50 mg tablet Take 1 tablet by mouth at bedtime as needed for pain for up to 90 days. Patient should start on July 05, 2024. montelukast (SINGULAIR) 10 mg tablet TAKE 1 TABLET BY MOUTH ONCE DAILY AT BEDTIME primidone (MYSOLINE) 50 mg tablet TAKE 1 TABLET BY MOUTH ONCE DAILY AT BEDTIME indapamide (LOZOL) 2.5 mg tablet Take 1 tablet by mouth once daily pregabalin (LYRICA) 75 mg capsule Take 1 capsule by mouth three times a day for 180 days. losartan (COZAAR) 100 mg tablet Take 1 tablet by mouth once daily. fluticasone-salmeterol (WIXELA INHUB) 500-50 mcg/dose dsdv Inhale 1 Puff as instructed two times a day. albuterol (PROVENTIL) 2.5 mg /3 mL (0.083 %) nebulizer solution Use 3 mL via nebulizer every 4 hours as needed for wheezing/shortness of breath. albuterol HFA (VENTOLIN HFA) 90 mcg/actuation inhaler Inhale 2 Puffs as instructed every 4 hours as needed for wheezing/shortness of breath. valACYclovir (VALTREX) 1 gram tablet Take 1 tablet by mouth once daily amLODIPine (NORVASC) 10 mg tablet Take 1 tablet by mouth once daily. ascorbic acid, vitamin C, (VITAMIN C) 500 mg tablet 1 tab(s) orally once a day for 30 day(s) betamethasone dipropionate 0.05 % ointment Apply to affected area twice daily. No current facility-administered medications for this visit. I have confirmed and edited as necessary the chief complaint, medications, past medical, family and social histories. Objective 07/11/24 1315 BP: 123/73 Pulse: 83 Temp: 36.4 ?C (97.5 ?F) Weight: 147 lb (66.7 kg) Body mass index is 27.78 kg/m?. Physical Exam Vitals and nursing note reviewed. Constitutional: Appearance: She is not ill-appearing. HENT: Head: Normocephalic and atraumatic. Right Ear: External ear normal. Left Ear: External ear normal. Nose: Nose normal. Mouth/Throat: Pharynx: No oropharyngeal exudate. Eyes: General: No scleral icterus. Conjunctiva/sclera: Conjunctivae normal. Pupils: Pupils are equal, (more content not included)... [facility] 06-25-2024 Instructions Ashley Fleming APRN.CNP - 06/25/2024 2:39 PM EST Ice and heat as tolerated Activity as tolerated Patient verbalizes understanding of home going instructions and is in agreement documented in this encounter [facility] 06-25-2024 Note HNO ID: [id number] Author: SHAY MICHAEL MA Service: ? Author Type: Boat Garnisher Type: Progress Notes Filed: 06/25/2024 14:43 Note Text: Review of Systems Constitutional: Negative for activity change, chills, fever and unexpected weight change. Gastrointestinal: Negative for bowel retention or incontinence Genitourinary: Negative for difficulty urinating. Negative for bladder retention or incontinence Musculoskeletal: Positive for arthralgias, back pain, gait problem, joint swelling and neck pain. Negative for myalgias and neck stiffness. Neurological: Negative for weakness, numbness and headaches. Psychiatric/Behavioral: Negative for dysphoric mood, sleep disturbance and suicidal ideas. The patient is not nervous/anxious. [facility] 06-25-2024 History of Present illness Narrative Review of Systems Constitutional: Negative for activity change, chills, fever and unexpected weight change. Gastrointestinal: Negative for bowel retention or incontinence Genitourinary: Negative for difficulty urinating. Negative for bladder retention or incontinence Musculoskeletal: Positive for arthralgias, back pain, gait problem, joint swelling and neck pain. Negative for myalgias and neck stiffness. Neurological: Negative for weakness, numbness and headaches. Psychiatric/Behavioral: Negative for dysphoric mood, sleep disturbance and suicidal ideas. The patient is not nervous/anxious. Images from the original note were not included. [facility] Today's Date: 06/25/2024 Name: Akila De Los Santos : 1945 Purpose: Follow-up Patient Evaluation - This is an established patient, returning today for continued evaluation and management of the chief complaint noted below Chief complaint: lumbar pain Pertinent Past Medical History: asthma, DM2, PAD, TIA Pertinent Past Surgeries: No spine Plan at last visit: Refill Tramadol Depending on response to the above plan, consider: Repeat caudal or SIJ prn Interval History: Overall pain and functional disability since last visit: Better New Complaints since last visit: No 06/11/24 right TFESI S1 Patient reports 80 % relief from procedure with pain score of 0/10 to date Patient reports improved quality of life and increase in ability to perform ADL's. Patient denies any adverse side effects such as nausea, vomiting, hives, fever, injection site redness/induration, headache, or new radicular symptoms. She is pleased with the procedure She sees ortho for her knee injections RECALL: Beginning yesterday, the patient began to have a significant flare of her right lower extremity radicular pain, which had previously been very well-controlled on Lyrica and had not bothered her in a very long time. She did not have any new injury. The pain is burning of the anterior thigh and calf and kept her from sleeping last night, it is very sensitive to the touch Current Pain Medications: Neuropathics: Lyrica 50 mg TID NSAIDS: Muscle Relaxants: Topicals: Other Prescription or OTC Pain Medications: Tylenol Opioids (when applicable): Tramadol 50 mg daily as needed MEDICATION NAME tramadol STRENGTH 50 LAST FILL DATE 05/28/2024 DATE LAST DOSE TAKEN 06/23/24 - 6:00pm QUANTITY FILLED 30 QUANTITY REMAINING 11 Anti-depressants or Mood-Stabilizers: Celexa Anti-Coagulants: None Therapies Attended (Current or Most Recent): No Current Therapies 01/21/2023 04/04/2023 07/18/2023 10/10/2023 01/02/2024 03/05/2024 04/27/2024 AG SPINE COMBINATION Questionnaire URINE DRUG SCREEN URINE DRUG SCREEN URINE DRUG SCREEN URINE DRUG SCREEN URINE DRUG SCREEN URINE DRUG SCREEN URINE DRUG SCREEN Completed Date 01/21/2023 04/04/2023 07/18/2023 10/10/2023 01/02/2024 03/05/2024 04/27/2024 Questionnaire NA/OIC NA/OIC NA/OIC NA/OIC Completed Date 01/21/2023 07/18/2023 01/02/2024 03/05/2024 Comments AMALIA today Questionnaire Opiod Risk Tool Opiod Risk Tool Completed Date 04/04/2023 04/27/2024 Notable Events During Course of Treatment: N/A Treatment History: PAIN PROCEDURES: DATE PROCEDURE IMPROVEMENT 06/11/24 right TFESI S1 80% 11/16/23 Caudal 50-80% 08/09/2022 Bilat SI Joint 85% (01/21/2023 ) 02/01/2022 Caudal CHAZ 70% x 7 months 11/26/2021 Bilat SI Joint 85% x nearly 6 months 04/07/2021 Bilat SI Joint 90% x 6 months Data Reviewed Today: Allergies: ALLERGIES Allergen Reactions Aspirin Shortness of Breath Lisinopril Swelling Latex Rash Penicillins Hives, Rash Sulfamethoxazole Hives Trileptal [Oxcarbaz* Other: See Comments Balance Problems after taking for a few days Social History Tobacco Use Smoking status: Former Types: Cigarettes Smokeless tobacco: Never Vaping Use Vaping status: Never Used Substance Use Topics Alcohol use: Never Drug use: Never 06/19/2024 06/25/2024 INTAKE PAIN ASSESSMENT Are you having pain associated with your visit today? No Yes, Provider notified Pain Scales Verbal (Numeric Rating or Visual Analog Scale) Pain Level 3 Pain Location Hip-Left Description Stabbing;Aching Frequency Continuous Intervention/Comfort measure Other: See comment Compliance: PDMP website checked and validated on 06/25/2024 by Ashley Fleming APRN.MULTIPLE SLIDE OPERATOR All prescriptions have been APPROPRIATELY filled. No suspicious activity was identified. 01/21/2023 04/04/2023 07/18/2023 10/10/2023 01/02/2024 03/05/2024 04/27/2024 AG SPINE COMBINATION Questionnaire URINE DRUG SCREEN URINE DRUG SCREEN URINE DRUG SCREEN URINE DRUG SCREEN URINE DRUG SCREEN URINE DRUG SCREEN URINE DRUG SCREEN Completed Date 01/21/2023 04/04/2023 07/18/2023 10/10/2023 01/02/2024 03/05/2024 04/27/2024 Questionnaire NA/OIC NA/OIC NA/OIC NA/OIC Completed Date 01/21/2023 07/18/2023 01/02/2024 03/05/2024 Comments AMALIA today Questionnaire Opiod Risk Tool Opiod Risk Tool Completed Date 04/04/2023 04/27/2024 (All drug screens are appropriate unless indicated otherwise) Risk Assessment: ISA-7: 11/19/2022 01/02/2024 05/04/2024 ISA - 7 SCORES Score 0 1 6 (0-4) minimal anxiety, (5-9) mild anxiety, (10-14) moderate anxiety, (15-21) severe anxiety PHQ-9: 04/08/2021 02/15/2022 01/02/2024 PHQ-9 Score 0 3 1 (0-4) minimal depression, (5-9) mild depression, (10-14) moderate depression, (15-19) moderately severe depression, (20-27) severe depression Diagnostic Studies: Relevant Imaging: MRI Spine Report MRI CERVICAL SPINE WO IVCON Exam End: 08/25/2022 3:08 PM (Final result) Narrative: * * *Final Report* * * DATE OF EXAM: Aug 25 2022 3:08PM Cynthia Chris - MRI CERVICAL SPINE WO IVCON / PROCEDURE REASON: multiple diagnoses * * * * Physician Interpretation * * * * EXAMINATION: MRI CERVICAL SPINE WO IVCON CLINICAL HISTORY: Spondylolysis of cervical region. Spinal stenosis of cervical region . TECHNIQUE: Routine cervical spine MR protocol without gadolinium. MQ: [id number] COMPARISON: Cervical spine radiographs 07/30/2022 RESULT: Counting reference: Craniocervical junction. Anatomic Variants: None. Localizer images: No additional findings. Alignment: There is straightening of normal cervical lordosis due to spondylolisthesis. There is mild retrolisthesis of C3 on C4 and C6 on C7. Craniocervical junction: Craniocervical junction is normal. Cord: The visualized cord is within normal limits of signal intensity and morphology. Bone marrow signal/fracture: No evidence of pathologic marrow infiltration. No evidence of prior fracture. There is moderate disc space height loss at C5-C6 and C6-C7. There are Modic type II degenerative endplate changes at C5-C6 and C6-C7 with vertebral body osteophyte formation. Cervical soft tissues: The paraspinal soft tissues are within normal limits. C2-C3: Canal and foramina are patent. C3-C4: Disc osteophyte complex effaces the ventral CSF contacting the ventral cord and along with ligamentum flavum thickening causes moderate stenosis of the spinal canal. There is severe left and moderate right neural foraminal narrowing due to uncovertebral and facet joint degenerative change. C4-C5: Disc osteophyte complex causes mild narrowing of the spinal canal. There is severe narrowing of both neural foramina due to uncovertebral arthropathy. C5-C6: Disc osteophyte complex impresses on the ventral thecal sac but without narrowing of the spinal canal. There is severe left and moderate right neural foraminal narrowing due to uncovertebral arthropathy. C6-C7: Disc osteophyte complex impresses on the ventral thecal sac with minimal narrowing of the spinal canal. There is severe left and moderate right neural foraminal narrowing due to uncovertebral arthropathy. C7-T1: Canal and foramina are patent. Impression: IMPRESSION: 1. Multilevel degenerative cervical spondylosis with straightening of cervical lordosis. 2. At C3-C4 there is moderate stenosis of the spinal canal and severe left neural foraminal stenosis. 3. There is multilevel high-grade neural foraminal stenosis as detailed. Anatomic Variant: None. Assume 7 cervical vertebrae with counting from the craniocervical junction. Can Machine Operator: ISADORA Transcribe Date/Time: Aug 26 2022 3:21P Dictated by : TREVOR MELÉNDEZ MD This examination was interpreted and the report reviewed and electronically signed by: TREVOR MELÉNDEZ MD on Aug 26 2022 3:32PM EST MRI Lumbar 05/20/21: Electrodiagnostic Study (EMG): None Recent Labs: Creatinine Date Value Ref Range Status 01/09/2024 0.85 0.58 - 0.96 mg/dL Final No results found for: EGFR Glucose, Point of Care Date Value Ref Range Status 06/11/2024 139 (A) 74 - 99 mg/dL Final Comment: Location:[facility], [address] [place] [address], [facility] The Accu-Chek Inform II glucose meter has not been approved for testing on patients receiving intensive medical intervention or therapy and results from this point of care glucose test should not be used for patient management decisions in these cases. Inaccurate results may also occur from other interfering factors, such as N-acetylcysteine (blood concentrations of greater than 5mg/dL), galactose, extremes of hematocrit (<10 or >65), or high doses of ascorbic acid (vitamin C) greater than 3mg/dL. Consider alternate testing mechanisms (e.g. core lab, blood gas instrument) in the above situations. Current Medications, Past Medical History, Past Surgical History, Family History, Social History and Review of Systems: On today's date, noted above, I have confirmed and edited as necessary, the PFSH and ROS obtained by others. Physical Exam: 06/25/24 1433 Pulse: (!) 58 Resp: 15 SpO2: 99% Physical Exam Constitutional: Appearance: Normal appearance. HENT: Head: Normocephalic. Right Ear: External ear normal. Left Ear: External ear normal. Eyes: Extraocular Movements: Extraocular movements intact. Cardiovascular: Pulses: Normal pulses. Pulmonary: Effort: Pulmonary effort is normal. Musculoskeletal: Comments: : BLE strength 4/5 and symmetrical BLE sensation intact and symmetrical BLE patellar reflexes intact difficult to elicit Lumbar ROM deferred 2/2 balance issues Ambulates with a cane Tenderness over lumbar superior sacral sulcus Skin: General: Skin is warm and dry. Neurological: General: No focal deficit present. Mental Status: patient is alert and oriented to person, place, and time. Psychiatric: Mood and Affect: Mood normal. Behavior: Behavior normal. IMPRESSION: 79 year old female presents with with significant past medical history for low back decompressive surgeries x 3, scoliosis, who presents with complaint(s) of ongoing axial low back pain, lower limb radicular symptoms due to spinal stenosis. Patient is being treated for the conditions noted above, who presents today for medication refill. Refill without adjustments were provided after verifying the history noted above, performing a focused physical examination, and reviewing available compliance data including (where available) the PDMP/OARRS system, pill counts, toxicology screens. Some elements of my note were copied from 06/04/24, which have been updated where appropriate and reflect my current medical decision making for today at 06/25/2024 OPIOID ASSESSMENT: No signs of abuse, no adverse events noted, patient experiences significant benefit of analgesia, and patient demonstrates increased activity while on these medications. Alternatives to opioid therapy have been discussed. The patient has demonstrated functional improvement and is on the minimum dose which maintains that improvement. The patient has been evaluated for risks of opioid related harms, including using a standardized tool (ORT) for evaluation of the risk of addiction. Risks of opioid therapy have been discussed, including potential for addiction and risk of overdose and risks to others who may obtain access to the patient's medications. The patient understands that opioid therapy will be tapered to lower dosages or discontinued if benefits do not outweigh the risks of treatment. Need for opioids was evaluated today and will be reassessed at next office visit in 30-60 days. Diagnoses: (M54.16) Lumbar radiculopathy (primary encounter diagnosis) (M96.1) Post laminectomy syndrome PLAN: Akila De Los Santos would benefit from the following to reach personal goals for decreasing pain, improving function and work participation, and/or improving quality of life: Medications: Requested Prescriptions Pending Prescriptions Disp Refills traMADol (ULTRAM) 50 mg tablet 30 tablet 2 Sig: Take 1 tablet by mouth at bedtime as needed for pain for up to 90 days. Patient should start on July 05, 2024. Interventional Procedures: None Studies: None Functional Restorationism: NONE Referrals: No additional considerations at present Follow-up: 3 months Depending on response to the above plan, consider: TBD Patient Education, Compliance and Clinic Policies Reviewed and/or Discussed Today: None Attribution: In addition to reviewing the information noted above, some elements copied from my most recent clinical note(s), including the physical exam (completed in entirety today), and the impression and plan sections, have been updated where appropriate. All reflect current medical decision making from today's date. Ashley Fleming APRN.CNP Pain Management [facility] documented in this encounter [facility] 06-25-2024 Note HNO ID: [id number] Author: ASHLEY FLEMING APRN.CNP Service: ? Author Type: Nurse Practitioner Type: Progress Notes Filed: 06/25/2024 14:44 Note Text: [facility] Today's Date: 06/25/2024 Name: Akila De Los Santos : 1945 Purpose: Follow-up Patient Evaluation - This is an established patient, returning today for continued evaluation and management of the chief complaint noted below Chief complaint: lumbar pain Pertinent Past Medical History: asthma, DM2, PAD, TIA Pertinent Past Surgeries: No spine Plan at last visit: Refill Tramadol Depending on response to the above plan, consider: Repeat caudal or SIJ prn Interval History: Overall pain and functional disability since last visit: Better New Complaints since last visit: No 06/11/24 right TFESI S1 Patient reports 80 % relief from procedure with pain score of 0/10 to date Patient reports improved quality of life and increase in ability to perform ADL's. Patient denies any adverse side effects such as nausea, vomiting, hives, fever, injection site redness/induration, headache, or new radicular symptoms. She is pleased with the procedure She sees ortho for her knee injections RECALL: Beginning yesterday, the patient began to have a significant flare of her right lower extremity radicular pain, which had previously been very well-controlled on Lyrica and had not bothered her in a very long time. She did not have any new injury. The pain is burning of the anterior thigh and calf and kept her from sleeping last night, it is very sensitive to the touch Current Pain Medications: Neuropathics: Lyrica 50 mg TID NSAIDS: Muscle Relaxants: Topicals: Other Prescription or OTC Pain Medications: Tylenol Opioids (when applicable): Tramadol 50 mg daily as needed MEDICATION NAME tramadol STRENGTH 50 LAST FILL DATE 05/28/2024 DATE LAST DOSE TAKEN 06/23/24 - 6:00pm QUANTITY FILLED 30 QUANTITY REMAINING 11 Anti-depressants or Mood-Stabilizers: Celexa Anti-Coagulants: None Therapies Attended (Current or Most Recent): No Current Therapies 01/21/2023 04/04/2023 07/18/2023 10/10/2023 01/02/2024 03/05/2024 04/27/2024 AG SPINE COMBINATION Questionnaire URINE DRUG SCREEN URINE DRUG SCREEN URINE DRUG SCREEN URINE DRUG SCREEN URINE DRUG SCREEN URINE DRUG SCREEN URINE DRUG SCREEN Completed Date 01/21/2023 04/04/2023 07/18/2023 10/10/2023 01/02/2024 03/05/2024 04/27/2024 Questionnaire NA/OIC NA/OIC NA/OIC NA/OIC Completed Date 01/21/2023 07/18/2023 01/02/2024 03/05/2024 Comments AMALIA today Questionnaire Opiod Risk Tool Opiod Risk Tool Completed Date 04/04/2023 04/27/2024 Notable Events During Course of Treatment: N/A Treatment History: PAIN PROCEDURES: DATE PROCEDURE IMPROVEMENT 06/11/24 right TFESI S1 80% 11/16/23 Caudal 50-80% 08/09/2022 Bilat SI Joint 85% (01/21/2023 ) 02/01/2022 Caudal CHAZ 70% x 7 months 11/26/2021 Bilat SI Joint 85% x nearly 6 months 04/07/2021 Bilat SI Joint 90% x 6 months Data Reviewed Today: Allergies: ALLERGIES Allergen Reactions Aspirin Shortness of Breath Lisinopril Swelling Latex Rash Penicillins Hives, Rash Sulfamethoxazole Hives Trileptal [Oxcarbaz* Other: See Comments Balance Problems after taking for a few days Social History Tobacco Use Smoking status: Former Types: Cigarettes Smokeless tobacco: Never Vaping Use Vaping status: Never Used Substance Use Topics Alcohol use: Never Drug use: Never 06/19/2024 06/25/2024 INTAKE PAIN ASSESSMENT Are you having pain associated with your visit today? No Yes, Provider notified Pain Scales Verbal (Numeric Rating or Visual Analog Scale) Pain Level 3 Pain Location Hip-Left Description Stabbing;Aching Frequency Continuous Intervention/Comfort measure Other: See comment Compliance: PDMP website checked and validated on 06/25/2024 by Ashley Fleming APRN.MULTIPLE SLIDE OPERATOR All prescriptions have been APPROPRIATELY filled. No suspicious activity was identified. 01/21/2023 04/04/2023 07/18/2023 10/10/2023 01/02/2024 03/05/202404/27/2024 AG SPINE COMBINATION Questionnaire URINE DRUG SCREEN URINE DRUG SCREEN URINE DRUG SCREEN URINE DRUG SCREEN URINE DRUG SCREEN URINE DRUG SCREEN URINE DRUG SCREEN Completed Date 01/21/2023 04/04/2023 07/18/2023 10/10/2023 01/02/2024 03/05/2024 04/27/2024 Questionnaire NA/OIC NA/OIC NA/OIC NA/OIC Completed Date 01/21/2023 07/18/2023 01/02/2024 03/05/2024 Comments AMALIA today Questionnaire Opiod Risk Tool Opiod Risk Tool Completed Date 04/04/2023 04/27/2024 (All drug screens are appropriate unless indicated otherwise) Risk Assessment: ISA-7: 11/19/2022 01/02/2024 05/04/2024 ISA - 7 SCORES Score 0 1 6 (0-4) minimal anxiety, (5-9) mild anxiety, (10-14) moderate anxiety, (15-21 (more content not included)... [facility] 06-11-2024 Note HNO ID: [id number] Author: KALIN ESPOSITO MD Service: ? Author Type: Physician Type: Progress Notes Filed: 06/11/2024 11:22 Note Text: [facility] Date: 06/11/2024 Patient name: Akila De Los Santos Physician performing procedure: Kalin Esposito MD Diagnosis: (M54.16) Lumbar radiculopathy (primary encounter diagnosis) Procedure: Epidural Steroid Injection - Transforaminal Approach (TFESI) under fluoroscopic guidance RIGHT-SIDED at S1 Injectate: A total of 3 ml volume was injected The injectate consisted of: 1 ml of Dexamethasone (10mg/ml), 1 mL Normal Saline, and 1cc lidocaine 1% . Each site received equal volumes of this injectate. Comments: Patient received 1.0mg Xanax for procedural anxiety, but would recommend only 0.5mg in future due to somnolence following procedure. She was observed for >1 hr and was drowsy but arousable, AAOx3 Improvement after today's procedure: as per nursing report HPI: Akila De Los Santos is an 79 year old FEMALE who presents today, in pain, for the procedure noted above. Review of Systems: Pertinent Positives: MSK: pain in the region being treated Neuro: weakness or numbness in the region being treated Skin: Negative (No itching) Eyes: Negative (No blurred or double vision) Respiratory: Negative (No Cough, [id number], Dyspnea on exertion, wheezing) Cardiovascular: Negative (No Chest Pain, Tightness, Pressure, Palpitations) Gastrointestinal: Negative (No Abdominal pain, Nausea, Vomiting, Constipation, Diarrhea) Genitourinary: Negative (No dysuria) Hematologic: Negative (No bleeding, bruising) OB: is Denied or Not Applicable Endocrine: Negative (No hot/cold intolerance) Psychiatric: Negative (No depression, anxiety or suicidal ideation) PAST MEDICAL HISTORY Diagnosis Date Asthma Diabetes mellitus (HCC) DJD (degenerative joint disease) Left hand pain Osteoarthritis of multiple joints PAD (peripheral artery disease) ([facility]) TIA (transient ischemic attack) PAST SURGICAL HISTORY Procedure Laterality Date CATARACT EXTRACTION HX Left 11/2016 CATARACT EXTRACTION HX Right 11/2018 TOTAL ABDOM HYSTERECTOMY FAMILY HISTORY Problem Relation Age of Onset Blindness Maternal Grandmother Social History Tobacco Use Smoking status: Former Types: Cigarettes Smokeless tobacco: Never Vaping Use Vaping status: Never Used Substance Use Topics Alcohol use: Never Drug use: Never Current Outpatient Medications on File Prior to Visit Medication Sig potassium chloride 20 mEq TbER Take 2 tablets by mouth twice daily [START ON 06/27/2024] traMADol (ULTRAM) 50 mg tablet Take 1 tablet by mouth at bedtime as needed for pain for up to 90 days. Patient should start on June 27, 2024. primidone (MYSOLINE) 50 mg tablet TAKE 1 TABLET BY MOUTH ONCE DAILY AT BEDTIME indapamide (LOZOL) 2.5 mg tablet Take 1 tablet by mouth once daily pregabalin (LYRICA) 75 mg capsule Take 1 capsule by mouth three times a day for 180 days. losartan (COZAAR) 100 mg tablet Take 1 tablet by mouth once daily. fluticasone-salmeterol (WIXELA INHUB) 500-50 mcg/dose dsdv Inhale 1 Puff as instructed two times a day. montelukast (SINGULAIR) 10 mg tablet TAKE 1 TABLET BY MOUTH ONCE DAILY AT BEDTIME albuterol (PROVENTIL) 2.5 mg /3 mL (0.083 %) nebulizer solution Use 3 mL via nebulizer every 4 hours as needed for wheezing/shortness of breath. albuterol HFA (VENTOLIN HFA) 90 mcg/actuation inhaler Inhale 2 Puffs as instructed every 4 hours as needed for wheezing/shortness of breath. citalopram (CELEXA) 20 mg tablet Take 1 tablet by mouth once daily rosuvastatin (CRESTOR) 10 mg tablet take 1 tablet by mouth once daily at bedtime solifenacin (VESICARE) 5 mg tablet Take 1 tablet by mouth once daily valACYclovir (VALTREX) 1 gram tablet Take 1 tablet by mouth once daily amLODIPine (NORVASC) 10 mg tablet Take 1 tablet by mouth once daily. ascorbic acid, vitamin C, (VITAMIN C) 500 mg tablet 1 tab(s) orally once a day for 30 day(s) betamethasone dipropionate 0.05 % ointment Apply to affected area twice daily. No current facility-administered medications on file prior to visit. Objective Exam: Vitals: As per nursing documentation Constitutional: Normal Appearance, Oriented to Time, Place and Person Head: No lacerations, no external signs of trauma Eyes: Conjunctiva clear. No discharge from the eyes Cardiovascular: Appears well-perfused Pulmonary: Non-labored respirations Abdominal: Non-distended Skin: No visible rashes or ecchymosis Psychiatric: Mood appropriate for given condition Neurological: Gross movements are limited by pain, but otherwise unremarkable Data Reviewed: Nursing note and vitals reviewed. Additional imaging reviewed as appropriate Assessment and Plan: As noted above [place] protocol documentation / Pre-Procedure Checklist: Consent: Obtaine (more content not included)... [facility] 06-11-2024 History of Present illness Narrative [facility] Date: 06/11/2024 Patient name: Akila De Los Santos Physician performing procedure: Kalin Esposito MD Diagnosis: (M54.16) Lumbar radiculopathy (primary encounter diagnosis) Procedure: Epidural Steroid Injection - Transforaminal Approach (TFESI) under fluoroscopic guidance RIGHT-SIDED at S1 Injectate: A total of 3 ml volume was injected The injectate consisted of: 1 ml of Dexamethasone (10mg/ml), 1 mL Normal Saline, and 1cc lidocaine 1% . Each site received equal volumes of this injectate. Comments: Patient received 1.0mg Xanax for procedural anxiety, but would recommend only 0.5mg in future due to somnolence following procedure. She was observed for >1 hr and was drowsy but arousable, AAOx3 Improvement after today's procedure: as per nursing report HPI: Akila De Los Santos is an 79 year old FEMALE who presents today, in pain, for the procedure noted above. Review of Systems: Pertinent Positives: MSK: pain in the region being treated Neuro: weakness or numbness in the region being treated Skin: Negative (No itching) Eyes: Negative (No blurred or double vision) Respiratory: Negative (No Cough, [id number], Dyspnea on exertion, wheezing) Cardiovascular: Negative (No Chest Pain, Tightness, Pressure, Palpitations) Gastrointestinal: Negative (No Abdominal pain, Nausea, Vomiting, Constipation, Diarrhea) Genitourinary: Negative (No dysuria) Hematologic: Negative (No bleeding, bruising) OB: is Denied or Not Applicable Endocrine: Negative (No hot/cold intolerance) Psychiatric: Negative (No depression, anxiety or suicidal ideation) PAST MEDICAL HISTORY Diagnosis Date Asthma Diabetes mellitus (HCC) DJD (degenerative joint disease) Left hand pain Osteoarthritis of multiple joints PAD (peripheral artery disease) (HCC) TIA (transient ischemic attack) PAST SURGICAL HISTORY Procedure Laterality Date CATARACT EXTRACTION HX Left 11/2016 CATARACT EXTRACTION HX Right 11/2018 TOTAL ABDOM HYSTERECTOMY FAMILY HISTORY Problem Relation Age of Onset Blindness Maternal Grandmother Social History Tobacco Use Smoking status: Former Types: Cigarettes Smokeless tobacco: Never Vaping Use Vaping status: Never Used Substance Use Topics Alcohol use: Never Drug use: Never Current Outpatient Medications on File Prior to Visit Medication Sig potassium chloride 20 mEq TbER Take 2 tablets by mouth twice daily [START ON 06/27/2024] traMADol (ULTRAM) 50 mg tablet Take 1 tablet by mouth at bedtime as needed for pain for up to 90 days. Patient should start on June 27, 2024. primidone (MYSOLINE) 50 mg tablet TAKE 1 TABLET BY MOUTH ONCE DAILY AT BEDTIME indapamide (LOZOL) 2.5 mg tablet Take 1 tablet by mouth once daily pregabalin (LYRICA) 75 mg capsule Take 1 capsule by mouth three times a day for 180 days. losartan (COZAAR) 100 mg tablet Take 1 tablet by mouth once daily. fluticasone-salmeterol (WIXELA INHUB) 500-50 mcg/dose dsdv Inhale 1 Puff as instructed two times a day. montelukast (SINGULAIR) 10 mg tablet TAKE 1 TABLET BY MOUTH ONCE DAILY AT BEDTIME albuterol (PROVENTIL) 2.5 mg /3 mL (0.083 %) nebulizer solution Use 3 mL via nebulizer every 4 hours as needed for wheezing/shortness of breath. albuterol HFA (VENTOLIN HFA) 90 mcg/actuation inhaler Inhale 2 Puffs as instructed every 4 hours as needed for wheezing/shortness of breath. citalopram (CELEXA) 20 mg tablet Take 1 tablet by mouth once daily rosuvastatin (CRESTOR) 10 mg tablet take 1 tablet by mouth once daily at bedtime solifenacin (VESICARE) 5 mg tablet Take 1 tablet by mouth once daily valACYclovir (VALTREX) 1 gram tablet Take 1 tablet by mouth once daily amLODIPine (NORVASC) 10 mg tablet Take 1 tablet by mouth once daily. ascorbic acid, vitamin C, (VITAMIN C) 500 mg tablet 1 tab(s) orally once a day for 30 day(s) betamethasone dipropionate 0.05 % ointment Apply to affected area twice daily. No current facility-administered medications on file prior to visit. Objective Exam: Vitals: As per nursing documentation Constitutional: Normal Appearance, Oriented to Time, Place and Person Head: No lacerations, no external signs of trauma Eyes: Conjunctiva clear. No discharge from the eyes Cardiovascular: Appears well-perfused Pulmonary: Non-labored respirations Abdominal: Non-distended Skin: No visible rashes or ecchymosis Psychiatric: Mood appropriate for given condition Neurological: Gross movements are limited by pain, but otherwise unremarkable Data Reviewed: Nursing note and vitals reviewed. Additional imaging reviewed as appropriate Assessment and Plan: As noted above [place] protocol documentation / Pre-Procedure Checklist: Consent: Obtained in writing prior to procedure I had a nice discussion with the patient today about their current pain and the pathology that could be causing it We discussed different treatment options, including risks, benefits and alternatives. We agreed to proceed as previously discussed, or the plan was modified in accordance with the comments noted above Unless stated otherwise in the procedure note, the risks include but are not limited to infection, allergic reaction, increased pain, lack of therapeutic benefit, steroid reaction, nerve damage, paralysis, stroke, epidural hematoma, syncope, headache, respiratory or cardiac arrest, pneumothorax, and scar formation Once the plan was agreed upon, the patient gave written consent to proceed and was transported into the procedure room Surgical/Procedure pause or Time Out : Time Out was led by the physician in the procedure room, with the patient and all staff present and participating The following information was verified during the Time Out process: Patient name, patient date of , procedure site (marked), laterality, anticoagulants and allergies Procedure: The patient was prepped and draped in a sterile fashion in the prone position after informed consent was signed and all patient questions were answered including the risks, benefits, alternative treatment options, and prognosis. The risks are as mentioned above, with the exception of Pneumothorax. The above-mentioned neural foramen were sequentially injected using the following technique: The C-arm was positioned so that an oblique view of the neural foramen as noted above was visualized. The soft tissues overlying this structure were infiltrated with 2-3 cc. of 1%Lidocaine without Epinephrine. A 22 gauge, 5 inch spinal needle was inserted toward the target using a trajectory view along the fluoroscope beam. Under AP and lateral visualization, the needle was advanced, so it did not puncture dura. Biplanar projections were used to confirm position. Aspiration was confirmed to be negative for CSF and/or blood. A 1-2 cc volume of Omnipaque 300 contrast was injected at this level. The contrast was observed to flow epidural (under the pedicle). Please see the nursing note for exact times (time out, procedure start, procedure end). After careful removal of the needle, there was minimal bleeding. The injection site was covered with appropriate sterile dressing. The patient was noted to have tolerated the procedure well and was discharged after an appropriate period of post-procedure observation. The patient was instructed to contact us if there were any complications. The patient was advised to follow-up with the requesting physician within one to two weeks or as per their requested follow-up plan. Post procedure visit summary with written instructions was offered to the patient. Kalin Esposito MD Pain Management [facility] Review of Systems Order has been placed in the patient's chart with the following parameters for discharge from the physician: Patient is alert and oriented Vitals: Diastolic/Systolic +/- 20mmHg Respirations: 12-18 Pulse: 60-100 SpO2 is greater than or equal to 90% Patient has no nausea or vomiting Patient has no dizziness Pain level is +/- 2 from initial evaluation Dressing, dry and intact with no evidence of bleeding Criteria has been met, patient is okay to be discharged per the physician. Physician has gone in and evaluated the patient. Dressing dry and intact. No drainage noted. The patient denies nausea, numbness, tingling, weakness, shortness of breath, dizziness, or headache. Pain level 0/10. Vital signs within normal limits. Patient denied needing walked out by clinical staff and denied needing a wheelchair. Patient given discharge instructions and sent to transportation via ambulatory method. Patient left in good condition. Procedure to be performed: RIGHT S1 LUMBAR TRANSFORAMINAL EPIDURAL INJECTION Patient was wheeled on stretcher from pre op bay to procedure room and assisted onto the procedure tablePatient s procedure was performed in an [facility] Procedure room. Pause completed at each level by provider to verify correct level and laterality placement Pressure was applied to patient s injection site(s) and bleeding was minimal. Patient had no complaint of shortness of breath, dizziness, headache, numbness, tingling, weakness or complications from procedure. Patient was assisted from the procedure table onto the stretcher and wheeled into a post op bay. Patient was advised a clinician will be to obtain another set of vitals. Time Out: 926 Confirmed patient name, date of , procedure site, laterality, and allergies Procedure Start: 929 Procedure End: 931 Review of Systems Constitutional: Positive for chills. Negative for activity change, fever and unexpected weight change. Gastrointestinal: Negative for bowel retention or incontinence Genitourinary: Negative for difficulty urinating. Negative for bladder retention or incontinence Musculoskeletal: Positive for arthralgias, back pain, gait problem, joint swelling, neck pain and neck stiffness. Negative for myalgias. Neurological: Positive for weakness. Negative for numbness and headaches. Psychiatric/Behavioral: Positive for sleep disturbance. Negative for dysphoric mood and suicidal ideas. The patient is not nervous/anxious. [employer] Lead's Name: DripDropet Are you on a blood thinner: n If yes, is a hold required: n Last dose of blood thinner: n INR Result today: n Do you require a Lovenox bridge:n Are you a diabetic:y - 139 Are you/or could you be : n Are you taking Xanax for the procedure: y Are you currently on a steroid? n Are you currently on an antibiotic: n documented in this encounter [facility] 06-11-2024 Note HNO ID: [id number] Author: LEANNE MENDIOLA LPN Service: ? Author Type: LICENSED NURSE Type: Progress Notes Filed: 06/11/2024 11:22 Note Text: Review of Systems Order has been placed in the patient's chart with the following parameters for discharge from the physician: Patient is alert and oriented Vitals: Diastolic/Systolic +/- 20mmHg Respirations: 12-18 Pulse: 60-100 SpO2 is greater than or equal to 90% Patient has no nausea or vomiting Patient has no dizziness Pain level is +/- 2 from initial evaluation Dressing, dry and intact with no evidence of bleeding Criteria has been met, patient is okay to be discharged per the physician. Physician has gone in and evaluated the patient. Dressing dry and intact. No drainage noted. The patient denies nausea, numbness, tingling, weakness, shortness of breath, dizziness, or headache. Pain level 0/10. Vital signs within normal limits. Patient denied needing walked out by clinical staff and denied needing a wheelchair. Patient given discharge instructions and sent to transportation via ambulatory method. Patient left in good condition. [facility] 06-11-2024 Instructions Leanne Mendiola LPN - 06/11/2024 9:36 AM EST PROCEDURE DISCHARGE INSTRUCTIONS 06/11/2024 Akila De Los Santos 1945 Physician: Kalin Esposito MD Procedure: RIGHT S1 LUMBAR TRANSFORAMINAL EPIDURAL INJECTION Post Procedure Instructions: If sedation given, no driving the day of the procedure., Rest the day of the procedure., You may resume normal activities the day after the procedure, as tolerated., Pain should gradually subside over the next 2-3 weeks., Avoid movements that may aggravate pain., Apply cold compresses to injection site if needed., If medically acceptable, take over the counter anti-inflammatories such as ibuprofen or Aleve if needed for post procedure discomfort., and No hot baths, hot tubs or hot compresses for 24 hours. If you have any of the following signs or symptoms, please call our office at Fever and/or chills Swelling and/or drainage from injection site New pain that is different than your normal pain (other than soreness at the site of the procedure) Stiff neck Shortness of breath Severe increase in pain Motor dysfunctions, such as difficulty walking, bowel or bladder dysfunction and/or incontinence Headache that is severe, light sensitive or develops when changing positions (positional headache) Nausea and/or vomiting accompanied by headache that started 24-48 hours after the procedure If you have any emergent concerns, please call 911 or go to your local emergency room. Please also contact our office to let us know you will be seeking emergency care and why. documented in this encounter [facility] 06-11-2024 Note HNO ID: [id number] Author: KADEEM HENLEY LPN Service: ? Author Type: LICENSED NURSE Type: Progress Notes Filed: 06/11/2024 11:22 Note Text: Procedure to be performed: RIGHT S1 LUMBAR TRANSFORAMINAL EPIDURAL INJECTION Patient was wheeled on stretcher from pre op bay to procedure room and assisted onto the procedure tablePatient?s procedure was performed in an [facility] Procedure room. Pause completed at each level by provider to verify correct level and laterality placement Pressure was applied to patient?s injection site(s) and bleeding was minimal. Patient had no complaint of shortness of breath, dizziness, headache, numbness, tingling, weakness or complications from procedure. Patient was assisted from the procedure table onto the stretcher and wheeled into a post op bay. Patient was advised a clinician will be to obtain another set of vitals. Time Out: 926 Confirmed patient name, date of , procedure site, laterality, and allergies Procedure Start: 929 Procedure End: 931 [facility] 06-11-2024 Note HNO ID: [id number] Author: VANESSA MUNOZ LPN Service: ? Author Type: LICENSED NURSE Type: Progress Notes Filed: 06/11/2024 11:22 Note Text: Review of Systems Constitutional: Positive for chills. Negative for activity change, fever and unexpected weight change. Gastrointestinal: Negative for bowel retention or incontinence Genitourinary: Negative for difficulty urinating. Negative for bladder retention or incontinence Musculoskeletal: Positive for arthralgias, back pain, gait problem, joint swelling, neck pain and neck stiffness. Negative for myalgias. Neurological: Positive for weakness. Negative for numbness and headaches. Psychiatric/Behavioral: Positive for sleep disturbance. Negative for dysphoric mood and suicidal ideas. The patient is not nervous/anxious. [facility] 06-11-2024 Note HNO ID: [id number] Author: VANESSA MUNOZ LPN Service: ? Author Type: LICENSED NURSE Type: Progress Notes Filed: 06/11/2024 11:22 Note Text: [employer] Lead's Name: nila Are you on a blood thinner: n If yes, is a hold required: n Last dose of blood thinner: n INR Result today: n Do you require a Lovenox bridge:n Are you a diabetic:y - 139 Are you/or could you be : n Are you taking Xanax for the procedure: y Are you currently on a steroid? n Are you currently on an antibiotic: n [facility] 06-04-2024 History of Present illness Narrative Images from the original note were not included. [facility] Today's Date: 06/04/2024 Name: Akila De Los Santos : 1945 Purpose: Follow-up Patient Evaluation - This is an established patient, returning today for continued evaluation and management of the chief complaint noted below Chief complaint: lumbar pain Pertinent Past Medical History: asthma, DM2, PAD, TIA Pertinent Past Surgeries: No spine Plan at last visit: Refill Tramadol Depending on response to the above plan, consider: Repeat caudal or SIJ prn Interval History: Overall pain and functional disability since last visit: Worse New Complaints since last visit: No She is scheduled for ILESI She is tolerating the increase in Lyrica without side effects - she feels it is beneficial She states the right knee gives out sometime - she sees Dr Duensa for her knee Denies LOC of bowel and bladder, no saddle anesthesia, no BLE weakness, no recent falls. She has refills on the Lyrica 75 mg TID RECALL: Beginning yesterday, the patient began to have a significant flare of her right lower extremity radicular pain, which had previously been very well-controlled on Lyrica and had not bothered her in a very long time. She did not have any new injury. The pain is burning of the anterior thigh and calf and kept her from sleeping last night, it is very sensitive to the touch Current Pain Medications: Neuropathics: Lyrica 50 mg TID NSAIDS: Muscle Relaxants: Topicals: Other Prescription or OTC Pain Medications: Tylenol Opioids (when applicable): Tramadol 50 mg daily as needed MEDICATION NAME tramadol STRENGTH 50 LAST FILL DATE 05/28/2024 DATE LAST DOSE TAKEN 06/03/2024 -8:00pm QUANTITY FILLED 30 QUANTITY REMAINING 25 Anti-depressants or Mood-Stabilizers: Celexa Anti-Coagulants: None Therapies Attended (Current or Most Recent): No Current Therapies 01/21/2023 04/04/2023 07/18/2023 10/10/2023 01/02/2024 03/05/2024 04/27/2024 AG SPINE COMBINATION Questionnaire URINE DRUG SCREEN URINE DRUG SCREEN URINE DRUG SCREEN URINE DRUG SCREEN URINE DRUG SCREEN URINE DRUG SCREEN URINE DRUG SCREEN Completed Date 01/21/2023 04/04/2023 07/18/2023 10/10/2023 01/02/2024 03/05/2024 04/27/2024 Questionnaire NA/OIC NA/OIC NA/OIC NA/OIC Completed Date 01/21/2023 07/18/2023 01/02/2024 03/05/2024 Comments AMALIA today Questionnaire Opiod Risk Tool Opiod Risk Tool Completed Date 04/04/2023 04/27/2024 Notable Events During Course of Treatment: N/A Treatment History: PAIN PROCEDURES: DATE PROCEDURE IMPROVEMENT 11/16/23 Caudal 50-80% 08/09/2022 Bilat SI Joint 85% (01/21/2023 ) 02/01/2022 Caudal CHAZ 70% x 7 months 11/26/2021 Bilat SI Joint 85% x nearly 6 months 04/07/2021 Bilat SI Joint 90% x 6 months Data Reviewed Today: Allergies: ALLERGIES Allergen Reactions Aspirin Shortness of Breath Lisinopril Swelling Latex Rash Penicillins Hives, Rash Sulfamethoxazole Hives Trileptal [Oxcarbaz* Other: See Comments Balance Problems after taking for a few days Social History Tobacco Use Smoking status: Former Types: Cigarettes Smokeless tobacco: Never Vaping Use Vaping status: Never Used Substance Use Topics Alcohol use: Never Drug use: Never 05/30/2024 06/04/2024 INTAKE PAIN ASSESSMENT Are you having pain associated with your visit today? Yes, Provider notified Yes, Provider notified Pain Scales Verbal (Numeric Rating or Visual Analog Scale) Pain Level 4 4 Pain Location Back-Lower Leg-Right Description Aching;Radiating Sharp Duration Units Months Years Frequency Intermittent Intermittent Intervention/Comfort measure Medication;Reposition;Heat Medication Comments The pain is sometimes in the middle of my back. It radiates down through my hips and legs, usually the right leg. Sometimes it's excruciating and sometimes tolerable, like now. Compliance: PDMP website checked and validated on 06/04/2024 by Ashley Fleming APRN.MULTIPLE SLIDE OPERATOR All prescriptions have been APPROPRIATELY filled. No suspicious activity was identified. 01/21/2023 04/04/2023 07/18/2023 10/10/2023 01/02/2024 03/05/2024 04/27/2024 AG SPINE COMBINATION Questionnaire URINE DRUG SCREEN URINE DRUG SCREEN URINE DRUG SCREEN URINE DRUG SCREEN URINE DRUG SCREEN URINE DRUG SCREEN URINE DRUG SCREEN Completed Date 01/21/2023 04/04/2023 07/18/2023 10/10/2023 01/02/2024 03/05/2024 04/27/2024 Questionnaire NA/OIC NA/OIC NA/OIC NA/OIC Completed Date 01/21/2023 07/18/2023 01/02/2024 03/05/2024 Comments AMALIA today Questionnaire Opiod Risk Tool Opiod Risk Tool Completed Date 04/04/2023 04/27/2024 (All drug screens are appropriate unless indicated otherwise) Risk Assessment: ISA-7: 11/19/2022 01/02/2024 05/04/2024 ISA - 7 SCORES Score 0 1 6 (0-4) minimal anxiety, (5-9) mild anxiety, (10-14) moderate anxiety, (15-21) severe anxiety PHQ-9: 04/08/2021 02/15/2022 01/02/2024 PHQ-9 Score 0 3 1 (0-4) minimal depression, (5-9) mild depression, (10-14) moderate depression, (15-19) moderately severe depression, (20-27) severe depression Diagnostic Studies: Relevant Imaging: MRI Spine Report MRI CERVICAL SPINE WO IVCON Exam End: 08/25/2022 3:08 PM (Final result) Narrative: * * *Final Report* * * DATE OF EXAM: Aug 25 2022 3:08PM Cynthia Chris - MRI CERVICAL SPINE WO IVCON / PROCEDURE REASON: multiple diagnoses * * * * Physician Interpretation * * * * EXAMINATION: MRI CERVICAL SPINE WO IVCON CLINICAL HISTORY: Spondylolysis of cervical region. Spinal stenosis of cervical region . TECHNIQUE: Routine cervical spine MR protocol without gadolinium. MQ: [id number] COMPARISON: Cervical spine radiographs 07/30/2022 RESULT: Counting reference: Craniocervical junction. Anatomic Variants: None. Localizer images: No additional findings. Alignment: There is straightening of normal cervical lordosis due to spondylolisthesis. There is mild retrolisthesis of C3 on C4 and C6 on C7. Craniocervical junction: Craniocervical junction is normal. Cord: The visualized cord is within normal limits of signal intensity and morphology. Bone marrow signal/fracture: No evidence of pathologic marrow infiltration. No evidence of prior fracture. There is moderate disc space height loss at C5-C6 and C6-C7. There are Modic type II degenerative endplate changes at C5-C6 and C6-C7 with vertebral body osteophyte formation. Cervical soft tissues: The paraspinal soft tissues are within normal limits. C2-C3: Canal and foramina are patent. C3-C4: Disc osteophyte complex effaces the ventral CSF contacting the ventral cord and along with ligamentum flavum thickening causes moderate stenosis of the spinal canal. There is severe left and moderate right neural foraminal narrowing due to uncovertebral and facet joint degenerative change. C4-C5: Disc osteophyte complex causes mild narrowing of the spinal canal. There is severe narrowing of both neural foramina due to uncovertebral arthropathy. C5-C6: Disc osteophyte complex impresses on the ventral thecal sac but without narrowing of the spinal canal. There is severe left and moderate right neural foraminal narrowing due to uncovertebral arthropathy. C6-C7: Disc osteophyte complex impresses on the ventral thecal sac with minimal narrowing of the spinal canal. There is severe left and moderate right neural foraminal narrowing due to uncovertebral arthropathy. C7-T1: Canal and foramina are patent. Impression: IMPRESSION: 1. Multilevel degenerative cervical spondylosis with straightening of cervical lordosis. 2. At C3-C4 there is moderate stenosis of the spinal canal and severe left neural foraminal stenosis. 3. There is multilevel high-grade neural foraminal stenosis as detailed. Anatomic Variant: None. Assume 7 cervical vertebrae with counting from the craniocervical junction. Can Machine Operator: PSCB Transcribe Date/Time: Aug 26 2022 3:21P Dictated by : TREVOR MELÉNDEZ MD This examination was interpreted and the report reviewed and electronically signed by: TREVOR MELÉNDEZ MD on Aug 26 2022 3:32PM EST MRI Lumbar 05/20/21: Electrodiagnostic Study (EMG): None Recent Labs: Creatinine Date Value Ref Range Status 01/09/2024 0.85 0.58 - 0.96 mg/dL Final No results found for: EGFR Glucose, Point of Care Date Value Ref Range Status 11/16/2023 125 (A) 74 - 99 mg/dL Final Comment: Location:[facility], [address] [place] [address], [facility] The Accu-Chek Inform II glucose meter has not been approved for testing on patients receiving intensive medical intervention or therapy and results from this point of care glucose test should not be used for patient management decisions in these cases. Inaccurate results may also occur from other interfering factors, such as N-acetylcysteine (blood concentrations of greater than 5mg/dL), galactose, extremes of hematocrit (<10 or >65), or high doses of ascorbic acid (vitamin C) greater than 3mg/dL. Consider alternate testing mechanisms (e.g. core lab, blood gas instrument) in the above situations. Current Medications, Past Medical History, Past Surgical History, Family History, Social History and Review of Systems: On today's date, noted above, I have confirmed and edited as necessary, the PFSH and ROS obtained by others. Physical Exam: 06/04/24 1330 Pulse: 64 Resp: 16 SpO2: 99% Physical Exam Constitutional: Appearance: Normal appearance. HENT: Head: Normocephalic. Right Ear: External ear normal. Left Ear: External ear normal. Eyes: Extraocular Movements: Extraocular movements intact. Cardiovascular: Pulses: Normal pulses. Pulmonary: Effort: Pulmonary effort is normal. Musculoskeletal: Comments: : BLE strength 4/5 and symmetrical BLE sensation intact and symmetrical BLE patellar reflexes intact difficult to elicit Lumbar ROM deferred 2/2 balance issues Ambulates with a cane Tenderness over lumbar superior sacral sulcus Skin: General: Skin is warm and dry. Neurological: General: No focal deficit present. Mental Status: patient is alert and oriented to person, place, and time. Psychiatric: Mood and Affect: Mood normal. Behavior: Behavior normal. IMPRESSION: 79 year old female presents with with significant past medical history for low back decompressive surgeries x 3, scoliosis, who presents with complaint(s) of ongoing axial low back pain, lower limb radicular symptoms due to spinal stenosis. Patient is being treated for the conditions noted above, who presents today for medication refill. Refill without adjustments were provided after verifying the history noted above, performing a focused physical examination, and reviewing available compliance data including (where available) the PDMP/OARRS system, pill counts, toxicology screens. Some elements of my note were copied from 04/27/24, which have been updated where appropriate and reflect my current medical decision making for today at 06/04/2024 OPIOID ASSESSMENT: No signs of abuse, no adverse events noted, patient experiences significant benefit of analgesia, and patient demonstrates increased activity while on these medications. Alternatives to opioid therapy have been discussed. The patient has demonstrated functional improvement and is on the minimum dose which maintains that improvement. The patient has been evaluated for risks of opioid related harms, including using a standardized tool (ORT) for evaluation of the risk of addiction. Risks of opioid therapy have been discussed, including potential for addiction and risk of overdose and risks to others who may obtain access to the patient's medications. The patient understands that opioid therapy will be tapered to lower dosages or discontinued if benefits do not outweigh the risks of treatment. Need for opioids was evaluated today and will be reassessed at next office visit in 30-60 days. Diagnoses: (Z79.891) Encounter for long-term use of opiate analgesic (primary encounter diagnosis) (M96.1) Post laminectomy syndrome (M54.16) Lumbar radiculopathy PLAN: Akila De Los Santos would benefit from the following to reach personal goals for decreasing pain, improving function and work participation, and/or improving quality of life: Medications: Requested Prescriptions Pending Prescriptions Disp Refills traMADol (ULTRAM) 50 mg tablet 30 tablet 1 Sig: Take 1 tablet by mouth at bedtime as needed for pain for up to 60 days. Interventional Procedures: Scheduled 06/11/24 Studies: URINE DRUG SCREEN (IN OFFICE TODAY) Functional Restorationism: NONE Referrals: No additional considerations at present Follow-up: 3 months Depending on response to the above plan, consider: TBD Patient Education, Compliance and Clinic Policies Reviewed and/or Discussed Today: None Attribution: In addition to reviewing the information noted above, some elements copied from my most recent clinical note(s), including the physical exam (completed in entirety today), and the impression and plan sections, have been updated where appropriate. All reflect current medical decision making from today's date. Ashley Fleming APRN.MULTIPLE SLIDE OPERATOR [facility] 06/04/2024 1:36 PM (Medication name) Pregabalin,Tablets/Capsules(quanti ty) 21 was neutralized by the patient using a medication disposal system (carbon pouch). The patient then deposited the medication in the trash. Witness: Sierra Tanner LPN Secondary Witness: Shay Michael CMA Review of Systems Constitutional: Negative for activity change, chills, fever and unexpected weight change. Gastrointestinal: Negative for bowel retention or incontinence Genitourinary: Negative for difficulty urinating. Negative for bladder retention or incontinence Musculoskeletal: Positive for arthralgias, back pain, gait problem and neck stiffness. Negative for joint swelling, myalgias and neck pain. Neurological: Negative for weakness, numbness and headaches. Psychiatric/Behavioral: Negative for dysphoric mood, sleep disturbance and suicidal ideas. The patient is not nervous/anxious. documented in this encounter [facility] 06-04-2024 Note HNO ID: [id number] Author: ASHLEY FLEMING APRN.MULTIPLE SLIDE OPERATOR Service: ? Author Type: Nurse Practitioner Type: Progress Notes Filed: 06/04/2024 13:44 Note Text: [facility] Today's Date: 06/04/2024 Name: Akila De Los Santos : 1945 Purpose: Follow-up Patient Evaluation - This is an established patient, returning today for continued evaluation and management of the chief complaint noted below Chief complaint: lumbar pain Pertinent Past Medical History: asthma, DM2, PAD, TIA Pertinent Past Surgeries: No spine Plan at last visit: Refill Tramadol Depending on response to the above plan, consider: Repeat caudal or SIJ prn Interval History: Overall pain and functional disability since last visit: Worse New Complaints since last visit: No She is scheduled for ILESI She is tolerating the increase in Lyrica without side effects - she feels it is beneficial She states the right knee gives out sometime - she sees Dr Duenas for her knee Denies LOC of bowel and bladder, no saddle anesthesia, no BLE weakness, no recent falls. She has refills on the Lyrica 75 mg TID RECALL: Beginning yesterday, the patient began to have a significant flare of her right lower extremity radicular pain, which had previously been very well-controlled on Lyrica and had not bothered her in a very long time. She did not have any new injury. The pain is burning of the anterior thigh and calf and kept her from sleeping last night, it is very sensitive to the touch Current Pain Medications: Neuropathics: Lyrica 50 mg TID NSAIDS: Muscle Relaxants: Topicals: Other Prescription or OTC Pain Medications: Tylenol Opioids (when applicable): Tramadol 50 mg daily as needed MEDICATION NAME tramadol STRENGTH 50 LAST FILL DATE 05/28/2024 DATE LAST DOSE TAKEN 06/03/2024 -8:00pm QUANTITY FILLED 30 QUANTITY REMAINING 25 Anti-depressants or Mood-Stabilizers: Celexa Anti-Coagulants: None Therapies Attended (Current or Most Recent): No Current Therapies 01/21/2023 04/04/2023 07/18/2023 10/10/2023 01/02/2024 03/05/2024 04/27/2024 AG SPINE COMBINATION Questionnaire URINE DRUG SCREEN URINE DRUG SCREEN URINE DRUG SCREEN URINE DRUG SCREEN URINE DRUG SCREEN URINE DRUG SCREEN URINE DRUG SCREEN Completed Date 01/21/2023 04/04/2023 07/18/2023 10/10/2023 01/02/2024 03/05/2024 04/27/2024 Questionnaire NA/OIC NA/OIC NA/OIC NA/OIC Completed Date 01/21/2023 07/18/2023 01/02/2024 03/05/2024 Comments AMALIA today Questionnaire Opiod Risk Tool Opiod Risk Tool Completed Date 04/04/2023 04/27/2024 Notable Events During Course of Treatment: N/A Treatment History: PAIN PROCEDURES: DATE PROCEDURE IMPROVEMENT 11/16/23 Caudal 50-80% 08/09/2022 Bilat SI Joint 85% (01/21/2023 ) 02/01/2022 Caudal CHZA 70% x 7 months 11/26/2021 Bilat SI Joint 85% x nearly 6 months 04/07/2021 Bilat SI Joint 90% x 6 months Data Reviewed Today: Allergies: ALLERGIES Allergen Reactions Aspirin Shortness of Breath Lisinopril Swelling Latex Rash Penicillins Hives, Rash Sulfamethoxazole Hives Trileptal [Oxcarbaz* Other: See Comments Balance Problems after taking for a few days Social History Tobacco Use Smoking status: Former Types: Cigarettes Smokeless tobacco: Never Vaping Use Vaping status: Never Used Substance Use Topics Alcohol use: Never Drug use: Never 05/30/2024 06/04/2024 INTAKE PAIN ASSESSMENT Are you having pain associated with your visit today? Yes, Provider notified Yes, Provider notified Pain Scales Verbal (Numeric Rating or Visual Analog Scale) Pain Level 4 4 Pain Location Back-Lower Leg-Right Description Aching;Radiating Sharp Duration Units Months Years Frequency Intermittent Intermittent Intervention/Comfort measure Medication;Reposition;Heat Medication Comments The pain is sometimes in the middle of my back. It radiates down through my hips and legs, usually the right leg. Sometimes it's excruciating and sometimes tolerable, like now. Compliance: PDMP website checked and validated on 06/04/2024 by Ashley Fleming APRN.MULTIPLE SLIDE OPERATOR All prescriptions have been APPROPRIATELY filled. No suspicious activity was identified. 01/21/2023 04/04/2023 07/18/2023 10/10/2023 01/02/2024 03/05/2024 04/27/2024 AG SPINE COMBINATION Questionnaire URINE DRUG SCREEN URINE DRUG SCREEN URINE DRUG SCREEN URINE DRUG SCREEN URINE DRUG SCREEN URINE DRUG SCREEN URINE DRUG SCREEN Completed Date 01/21/2023 04/04/2023 07/18/2023 10/10/2023 01/02/2024 03/05/2024 04/27/2024 Questionnaire NA/OIC NA/OIC NA/OIC NA/OIC Completed Date 01/21/2023 07/18/2023 01/02/2024 03/05/2024 Comments AMALIA today Questionnaire Opiod Risk Tool Opiod Risk Tool Completed Date 04/04/2023 04/27/2024 (All drug screens are appropri (more content not included)... [facility] 06-04-2024 Instructions Ashley Fleming APRN.NELY - 06/04/2024 1:39 PM EST Ice and heat as tolerated Activity as tolerated Patient verbalizes understanding of home going instructions and is in agreement documented in this encounter [facility] 06-04-2024 Note HNO ID: [id number] Author: SIERRA TANNER LPN Service: ? Author Type: LICENSED NURSE Type: Progress Notes Filed: 06/04/2024 13:44 Note Text: 06/04/2024 1:36 PM (Medication name) Pregabalin,Tablets/Capsules(quanti ty) 21 was neutralized by the patient using a medication disposal system (carbon pouch). The patient then deposited the medication in the trash. Witness: Sierra Tanner LPN Secondary Witness: Shay Michael CMA [facility] 06-04-2024 Note HNO ID: [id number] Author: SHAY MICHAEL MA Service: ? Author Type: Boat Garnisher Type: Progress Notes Filed: 06/04/2024 13:44 Note Text: Review of Systems Constitutional: Negative for activity change, chills, fever and unexpected weight change. Gastrointestinal: Negative for bowel retention or incontinence Genitourinary: Negative for difficulty urinating. Negative for bladder retention or incontinence Musculoskeletal: Positive for arthralgias, back pain, gait problem and neck stiffness. Negative for joint swelling, myalgias and neck pain. Neurological: Negative for weakness, numbness and headaches. Psychiatric/Behavioral: Negative for dysphoric mood, sleep disturbance and suicidal ideas. The patient is not nervous/anxious. [facility] 05-09-2024 Telephone encounter Note Procedure(s) being scheduled: Epidural Steroid Injection - Transforaminal Approach (TFESI) under fluoroscopic guidance RIGHT-SIDED at S1 1.Are you diabetic Yes. Please list the current medications being prescribed NA. 2. Are you on any blood thinners? No If yes, does it require a hold? No If yes, was approval letter sent? No 3. Are you taking any aspirin? No 4. Are you currently taking any antibiotics? No If yes, is it prophylactic or for treatment of an infection? NA 5. Do you have any allergies to latex? Yes 6. Do you have any allergies to seafood or shellfish? No 7. Do you have any allergies to x-ray dye? No 8. Does this procedure require a bobtail driver? Yes If yes, has patient been notified that a bobtail driver is needed and must be present at check in? NA 9. Were the pre-procedure instructions explained and provided to the patient? Yes 10. Do you have a pacemaker? No 11. Do you have an internal stimulator of any kind? No If yes, please bring the remote with you to your procedure visit. Temitope Estrada [facility] 05-09-2024 Miscellaneous Notes Procedure(s) being scheduled: Epidural Steroid Injection - Transforaminal Approach (TFESI) under fluoroscopic guidance RIGHT-SIDED at S1 1.Are you diabetic Yes. Please list the current medications being prescribed NA. 2. Are you on any blood thinners? No If yes, does it require a hold? No If yes, was approval letter sent? No 3. Are you taking any aspirin? No 4. Are you currently taking any antibiotics? No If yes, is it prophylactic or for treatment of an infection? NA 5. Do you have any allergies to latex? Yes 6. Do you have any allergies to seafood or shellfish? No 7. Do you have any allergies to x-ray dye? No 8. Does this procedure require a bobtail driver? Yes If yes, has patient been notified that a bobtail driver is needed and must be present at check in? NA 9. Were the pre-procedure instructions explained and provided to the patient? Yes 10. Do you have a pacemaker? No 11. Do you have an internal stimulator of any kind? No If yes, please bring the remote with you to your procedure visit. Temitope Estrada documented in this encounter [facility] 05-08-2024 Telephone encounter Note Epidural Steroid Injection - Transforaminal Approach (TFESI) under fluoroscopic guidance RIGHT-SIDED at [employer] Needed: Epidural - YES Anticoagulant - Hold Needed: N/A (Not currently on Anticoagulants) Anticoagulant - Currently Taking: None Allergies (relevant): None Scheduling - Mobility (Can Patient independently transfer on/off an OR or Procedure table?): YES (May schedule at any location) Scheduling - Additional Info: XANAX Prescribed - Needs to arrive 45 min prior to procedure; No driving 24 hours after injection; Bring to procedure (do not take in advance) [facility] 05-08-2024 Miscellaneous Notes Epidural Steroid Injection - Transforaminal Approach (TFESI) under fluoroscopic guidance RIGHT-SIDED at [employer] Needed: Epidural - YES Anticoagulant - Hold Needed: N/A (Not currently on Anticoagulants) Anticoagulant - Currently Taking: None Allergies (relevant): None Scheduling - Mobility (Can Patient independently transfer on/off an OR or Procedure table?): YES (May schedule at any location) Scheduling - Additional Info: XANAX Prescribed - Needs to arrive 45 min prior to procedure; No driving 24 hours after injection; Bring to procedure (do not take in advance) documented in this encounter [facility] 05-04-2024 Charan Valencia DO - 05/04/2024 1:37 PM EST Images from the original note were not included. Tips to help with your memory and cognition 1. COGNITIVE STIMULATION Keep your brain active by doing mentally stimulating activities for 30 minutes twice a day. Here are few suggested activities: - crossword puzzles - jigsaw puzzles - [employer] games - word finding - problem solving activities - learn a new hobby or take a class 2. SOCIAL INTERACTION Talk to a friend, family member or neighbor at least once a day. Engage in community activities. Consider joining your local senior citizen center. 3. PHYSICAL ACTIVITY Make sure you move your body every day. You may vary your exercises to help keep your brain sharp. Always check with your health care provider before starting a new exercise program. Try to walk at least 30 minutes 5 times per week. You may also consider trying Dave Chi or Yoga to help with balance and strength training 4. DIET/NUTRITION Follow a Mediterranean diet, including fruits, vegetables, lean meats, fish. Drink atleast six (8 ounce) cups of water daily to avoid dehydration Reduce your intake of fat and cholesterol rich food. Avoid alcohol The MIND diet (Mediterranean-DASH Intervention for Neurodegenerative Delay) has been associated with a reduced incidence of cognitive impairment and Alzheimer disease SLEEP HYGIENE INSTRUCTIONS Homeostatic Drive for Sleep - Avoid naps, except for a brief 10 to.15 minute nap eight hours after arising; but check with your physician first, because in some sleep disorders naps can be beneficial. - Restrict sleep period to average number of hours you have actually slept per night in the preceding week. Quality of sleep is important. Too much time in the bed can decrease quality on subsequent nights. - Get regular exercise each day, preferable 40 minutes each day of an. Activity that causes sweating. It is best to finish exercise at least six hours before bed time. - Take a hot bath to raise your temperature within two hours before bedtime. A hot drink may help you relax as well as warm you. - Keep a regular time out of bed 7 days a week. - Do not expose yoursclf bright light if you have to get up at night. - Get at least one half hour of sunlight within 30 minutes of your out-of-bed time. Drug Effects Do not smoke -to get yourself back to sleep. Do not smoke after 7:00 P.M:, or give up smoking entirely, . Avoid caffeine entirely for a four-week trial period; limit caffeine use to no more than three cups no later than 10:00 A.M.. Light to moderate use of alcoholic beverages.. Alcohol can fragment sleep over second half of sleep period. Arousal in Sleep Setting - Keep clock face turned away, and do not find out what time it is when you wake up at night.. - Avoid strenuous exercise after 6:00 P.M. - Do not eat or drink heavily for thee hours before bedtime. A light bedtime snack may help. - If you have trouble with regurgitation, be especially careful to avoid heavy meals and spices in the evening. Do not retire too hungry or too full. Head of bed may need to be raised. - Keep your room dark, quiet, well ventilated, and at a comfortable temperature throughout the night. Earplugs and eyeshades are OK. - Use a bedtime ritual. Reading before lights-out may be helpful if it is not, occupationally related.. - List problems and one-sentence next steps for the following day. Set aside a worry time. Forgive yourself and others. - Learn simple self-hypnosis to use if you wake up at night. Do not try too hard to sleep; instead, concentrate on the pleasant feeling of relaxation. - Use stress management in the daytime. - Avoid unfamiliar sleep environments. - Be sure mattress is not-too soft or too firm' pillow is right height and firmness.An occasional sleeping pill is probably all right. - Use bedroom only for sleep; do not work or do other activities that lead to prolonged arousal. - If possible, make arrangements for care-giving activities (children, others, pets) to be assumed by someone else. When Memory is Normal and When it is [id number] Memory and aging Memory is defined as the power or process of reproducing or recalling what has been learned and retained (Ayse-Kaplan Dictionary). Our ability to remember and to recall our past is what links us to our families, our friends and our community. As we age, subtle changes in memory occur, sometimes unnoticed, but at other times disturbing to ourselves or others. Most normal changes in memory and cognition (defined as the act or process of knowing including both awareness and judgment) are of little importance, as they do not interfere with our daily activities or our quality of life. But when memory loss prevents us from performing daily tasks and our accustomed roles in life it becomes a health concern that needs further evaluation by healthcare professionals. What is normal aging and memory? As we age, slight changes occur in our cognition that affect memory. Simple forgetfulness (the missing keys) and delay or slowing in recalling names, dates, and events can be part of the normal process of aging. Memory has various forms, though, that might be affected differently by aging (see table). Preserved memory functions Declining memory functions Remote memory (ability to remember events from years ago) Procedural memory (performing tasks) Semantic recall (general knowledge) Learning new information Recalling new information (takes longer to learn something new and to recall it) What other changes occur with normal aging and cognition? Language (words, their pronunciation, and the ways we combine them to be used and understood) is modestly affected by aging. Language comprehension (understanding the rules of language) is preserved, as are vocabulary (semantic memory) and syntax (the way in which words are put together). Some modest decline is seen with spontaneous word finding (tip of the tongue) and verbal fluency (takes longer to get the words out). While verbal intelligence (vocabulary) remains unchanged with aging, the speed of information processing gradually slows (such as problem-solving skills). Executive functions (planning, abstracting) remain normal for everyday tasks, but are slowed when faced with novel tasks or divided attention (multi-tasking). A slowing of the speed of cognitive processing and reaction time (hitting the buzzer) occur with aging. When is memory not so normal? Amnesia (memory loss) is not a part of the normal aging process. While it may take longer to learn new information (for example, names of people) or to recall learned information (for example, names of friends in photos), with a little time and extra effort memory occurs. Some people are more forgetful, but this might be because of health conditions (for example, depression, heart disease, thyroid disease and vitamin deficiencies) or medication effects. Memory loss is abnormal in people with mild cognitive impairment or dementia (a loss of intellectual functions severe enough to interfere with everyday social or occupational functioning). Mild cognitive impairment Important memory impairments occur without loss of independent functioning. Forgetfulness and struggling to perform self-care tasks (for example, taking medications, paying bills) but still able to do so without the direct help of another person. Dementia: Memory, language, and cognition are so impaired that self-care tasks can no longer be performed without assistance from another person. Rho-dh-vdtook memory Condition Symptoms Mild cognitive impairment Aging Pre-Alzheimer s Silent strokes (infarcts) Head injury Forgetfulness or amnesia for recent events Need to write reminders to do things or else will forget Struggles but is able to perform daily chores and tasks Sometimes needs a reminder or prompt to remember Dementia Alzheimer s Vascular (stroke) Others: Pick s, hydrocephalus, drugs/alcohol, etc. Unable to perform complex daily tasks (for example, paying bills, taking medications, shopping, driving) Loss of insight or awareness of memory loss Poor judgment Behavioral symptoms (for example, irritability worrying, anger, agitation, suspiciousness) Can normal memory be preserved in aging? Research has shown the following: More education helps preserve cognitive reserve and delays the onset of dementia. A healthy diet--one high in antioxidants and olive oil--lowers the risk of dementia. Cognitive training (memory training, reasoning training, syrea-he-jtsajto training) improves cognition. Playing board games (chess, checkers, cards, learning a second language) and musical instrument delays the onset of dementia. Engaging in social activities slows cognitive decline. Reducing cardiovascular risks (for example, treating hypertension) delays the onset of dementia. References: [place] [employer]. Memory and Aging Accessed 09/09/2015. National [place] on Aging. Understanding Memory Loss Accessed 09/09/2015. National Institutes of Health. NIH: News In Health: Things Forgotten: Simple Lapse or Serious Problem? Accessed 09/09/2015. Copyright 8494-5836 The [facility]. All rights reserved This information is provided by the [facility] and is not intended to replace the medical advice of your doctor or health care provider. Please consult your health care provider for advice about a specific medical condition. For additional health information, please contact the Center for Consumer Health Information at the [facility] or toll-free extension [phone]. If you prefer, you may visit [email or web address] or [email or web address]. This document was last reviewed on: 2015 index#[id number] documented in this encounter [facility] 05-04-2024 History of Present illness Narrative Images from the original note were not included. Charan Dukes DO [facility] [address] [place] [address] COMPREHENSIVE GERIATRICS ASSESSMENT Patient presents with: New Patient Evaluation: Memory History of Present Illness Ms. Akila De Los Santos is a 79 year old year old lady referred for Comprehensive Geriatrics Assessment, as referred by PCP for evaluation of memory impairment. She is here with herself. Akila De Los Santos has PMHX of HTN, DM, Asthma, chronic pain, hot flashes on Celexa. No recent hospitalization. 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: singing Mood: stated good, denies depression, denies feel lonely Sleep: sleeps on average 6-7 hr, stated sleep is fragmented due to nocturia, stated mostly feel refresh once woke up, unsure if snoring, no prior sleep study Appetite: stated good Exercise: currently limited due to whether Family hx: mother had memory issues later in age, no known mood disorders Education: college degree 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 Yes Is a power of chemical compounder in place for financial needs? Patient unsure Is a power of chemical compounder in place for health care decisions? Yes Is palliative or hospice care appropriate for the patient? No II) Mentation: Durga Cognitive Exam (MOCA): not on file Cognitive Test evaluation: Cognitive Testing Evaluation Introduction: Akila De Los Santos 1945 Female This 79 year old Female was administered a battery of neurocognitive testing on 05/04/2024. Tests Administered: Trails A, Trails B, Digit Symbol Substitution, Stroop, Immediate Recognition, Delayed Recognition The combined test administration time was 11 minutes Test Results: Cognitive testing was provided via a battery of cognitive assessments. The pattern of test scores indicate that results are valid. A Clinical Report with further description of scores and results is also available. Overall: Patient tested in the 67th percentile (standard score of 107). Trails A: Patient tested in the 61st percentile (scaled standard score of 104). Trails B: Patient tested in the 81st percentile (scaled standard score of 113). Digit Symbol Substitution: Patient tested in the 49th percentile (scaled standard score of 100). Stroop: Patient tested in the 10th percentile (scaled standard score of 81). Immediate Recognition: Patient tested in the 85th percentile (scaled standard score of 116). Delayed Recognition: Patient tested in the 91st percentile (scaled standard score of 120). Interpretation of Test Scores: Examination of individual component tests shows: Attention - Trails A: unlikely impairment Mental Flexibility - Trails B: unlikely impairment Executive Function - Digit Symbol Substitution: unlikely impairment Executive Function - Stroop: possible impairment Memory - Immediate Recognition: unlikely impairment Memory - Delayed Recognition: unlikely impairment The patient s overall cognitive test performance was in the 67th percentile when compared to individuals of a similar age and gender, suggesting unlikely presence of cognitive impairment. FAST (Functional Assessment Staging Tool) 2. Complains of forgetting location of objects; subjective word finding difficulties only CDR Dementia Scale 1) Subjective Memory Loss: YES 2) Measurable Memory Loss: NO 3) IADLs: NO 4) BADLs: NO Driving Safely: Yes > 50% 6) Medications: No Mood Evaluation and Screening GDS: 05/04/2024 Geriatric Depression Scale Are you basically satisfied with your life? 0 Have you dropped many of your activities and interests? 0 Do you feel that your life is empty? 0 Do you often get bored? 0 Are you in good spirits most of the time? 0 Are you afraid that something bad is going to happen to you? 0 Do you feel happy most of the time? 0 Do you often feel helpless? 0 Do you prefer staying at home to going out and doing new things? 0 Do you feel you have more problems with memory than most people? 1 Do you think it is wonderful to be alive now? 0 Do you feel pretty worthless the way you are now? 0 Do you feel full of energy? 1 Do you feel that your situation is hopeless? 0 Do you think that most people are better off than you are? 0 GDS Total Score 2 GDS Score Assessment 0-5 points is normal Normal Mild Moderate Severe 0-4 5-8 9-11 12+ ISA-7: 11/19/2022 01/02/2024 05/04/2024 ISA - 7 SCORES Score 0 1 6 (0-4) minimal anxiety, (5-9) mild anxiety, (10-14) moderate anxiety, (15-21) severe anxiety III) Mobility: Functional Evaluation: B-ADLs: (I=independent,A=assistance,D=depe ndent) ?Bathing: I, Dressing: I, Toileting: I, Transferring:I, Continence: I, Feeding: I, ([place] Index): 6 I-ADLs: Ability to use phone: I, Shopping: I, Cooking: I, Housekeeping: I, Laundry: I, Transportation:I, Medications: I, Handle Finances: I. ([place] scale): 8 Mobility Aid: Cane Falls: .: Falls in the last 12 months: None. If + falls: Safety Assessment Checklist If the patient or caregiver answers yes to questions 1 and 3-7 or no to question 2, refer to the Safety Assessment Guide for further evaluation. When working with patients living with dementia, it is recommended that you also consult with a family member, friend or caregiver, as the patient s judgment, memory and decreased cognitive skills may impact insight into the illness and the ability to provide accurate reporting. Questions (Yes/ No) 1. Is the patient still driving? YES 2. Is the patient taking medications as prescribed? YES 3. Are there concerns about safety in the home? NO 4. Has the patient gotten lost in familiar places or wandered? NO 5. Are firearms present in the home? NO 6. Has the patient experienced unsteadiness or sustained falls? NO 7. Does the patient live alone? YES Frailty Screening (F.R.A.I.L Scale-Fried): Fatigue: YES Resistance (ability to climb a flight of stairs): NO Aerobics (ability to walk a block): YES Illnesses (presence of > 5% illnesses): NO Loss of Weight (presence of > 5% in the past 6 months): NO Patient is Prefrail (Robust: 0, Pre-frail: 1-2, Frail: >=3) IV) Medication Review: - ANY HIGH RISK MEDICATIONS (STOPP CRITERIA): NO Mini - Nutritional Assessment Screening Has food intake declined over the past 3 months due to loss of appetite, digestive problems, chewing or swallowing difficulties? 2 = no decrease in food intake 2. Weight loss during the last 3 months 2 = weight loss between 1 and 3 kg (2.2 and 6.6 lbs) 3. Mobility 2 = goes out 4. Has suffered psychological stress or acute disease in the past 3 months? 0 = yes 5.Neuropsychological problems 2 = no psychological problems 6. Body Mass Index (BMI) (weight in kg) / (height in m2) 3 = BMI 23 or greater Screening score: 11 (max. 14 points) 12-14 points: Normal nutritional status 8-11 points: At risk of malnutrition 0-7 points: Malnourished Geriatrics Review of Systems Incontinence - During the last 3 months did you leak urine? NO Constipation: NO Orthostatic Hypotension: NO Nutrition - Loss of weight (> 5% in the past 6 months): NO Vision Positive for vision impairment however not able to get new glasses Follows with boarding room fixer:YES Hearing - Hearing aid : Denies any problems Review of Systems Constitutional: Negative for activity change, appetite change, chills, fatigue, fever and unexpected weight change. HENT: Negative for facial swelling, hearing loss, sinus pressure, sinus pain, sore throat, tinnitus, trouble swallowing and voice change. Eyes: Negative for pain, discharge, itching and visual disturbance. Respiratory: Negative for cough, chest tightness, shortness of breath, wheezing and stridor. Cardiovascular: Negative for chest pain, palpitations and leg swelling. Gastrointestinal: Negative for abdominal pain, anal bleeding, blood in stool, constipation, diarrhea, nausea and vomiting. Endocrine: Negative for polyuria. Genitourinary: Negative for difficulty urinating, dysuria, flank pain, frequency, hematuria and urgency. Musculoskeletal: Negative for back pain, gait problem and joint swelling. Skin: Negative for color change and rash. Neurological: Negative for dizziness, tremors, syncope, speech difficulty, weakness, light-headedness, numbness and headaches. Psychiatric/Behavioral: Negative for agitation, behavioral problems, confusion, decreased concentration, hallucinations, self-injury, sleep disturbance and suicidal ideas. The patient is not nervous/anxious. ALLERGIES Allergen Reactions Aspirin Shortness of Breath Lisinopril Swelling Latex Rash Penicillins Hives, Rash Sulfamethoxazole Hives Trileptal [Oxcarbaz* Other: See Comments Balance Problems after taking for a few days PAST MEDICAL HISTORY Diagnosis Date Asthma Diabetes mellitus (HCC) DJD (degenerative joint disease) Left hand pain Osteoarthritis of multiple joints PAD (peripheral artery disease) (HCC) TIA (transient ischemic attack) PAST SURGICAL HISTORY Procedure Laterality Date CATARACT EXTRACTION HX Left 11/2016 CATARACT EXTRACTION HX Right 11/2018 TOTAL ABDOM HYSTERECTOMY Social History Tobacco Use Smoking status: Former Types: Cigarettes Smokeless tobacco: Never Vaping Use Vaping status: Never Used Substance Use Topics Alcohol use: Never Drug use: Never FAMILY HISTORY Problem Relation Age of Onset Blindness Maternal Grandmother Current Outpatient Medications Medication Sig pregabalin (LYRICA) 75 mg capsule Take 1 capsule by mouth three times a day for 180 days. traMADol (ULTRAM) 50 mg tablet Take 1 tablet by mouth at bedtime as needed for pain for up to 60 days. losartan (COZAAR) 100 mg tablet Take 1 tablet by mouth once daily. fluticasone-salmeterol (WIXELA INHUB) 500-50 mcg/dose dsdv Inhale 1 Puff as instructed two times a day. montelukast (SINGULAIR) 10 mg tablet TAKE 1 TABLET BY MOUTH ONCE DAILY AT BEDTIME albuterol (PROVENTIL) 2.5 mg /3 mL (0.083 %) nebulizer solution Use 3 mL via nebulizer every 4 hours as needed for wheezing/shortness of breath. albuterol HFA (VENTOLIN HFA) 90 mcg/actuation inhaler Inhale 2 Puffs as instructed every 4 hours as needed for wheezing/shortness of breath. potassium chloride 20 mEq TbER Take 2 tablets by mouth twice daily primidone (MYSOLINE) 50 mg tablet TAKE 1 TABLET BY MOUTH ONCE DAILY AT BEDTIME citalopram (CELEXA) 20 mg tablet Take 1 tablet by mouth once daily rosuvastatin (CRESTOR) 10 mg tablet take 1 tablet by mouth once daily at bedtime solifenacin (VESICARE) 5 mg tablet Take 1 tablet by mouth once daily valACYclovir (VALTREX) 1 gram tablet Take 1 tablet by mouth once daily indapamide (LOZOL) 2.5 mg tablet Take 1 tablet by mouth once daily. amLODIPine (NORVASC) 10 mg tablet Take 1 tablet by mouth once daily. ascorbic acid, vitamin C, (VITAMIN C) 500 mg tablet 1 tab(s) orally once a day for 30 day(s) betamethasone dipropionate 0.05 % ointment Apply to affected area twice daily. No current facility-administered medications for this visit. I have confirmed and edited as necessary, the chief complaint, medications, past medical, family and social histories. BP 128/61 (BP Site: Left Arm, BP Position: Sitting, BP Cuff Size: Regular Adult) Pulse 70 Ht 154.9 cm (5' 1) Wt 66.7 kg (147 lb) SpO2 100% BMI 27.78 kg/m Physical Exam Vitals and nursing note reviewed. Constitutional: General: She is not in acute distress. Appearance: Normal appearance. She is not ill-appearing, toxic-appearing or diaphoretic. HENT: Head: Normocephalic and atraumatic. Eyes: General: No scleral icterus. Cardiovascular: Rate and Rhythm: Normal rate. Pulmonary: Effort: Pulmonary effort is normal. Musculoskeletal: General: No swelling or deformity. Cervical back: Neck supple. Skin: General: Skin is warm and dry. Neurological: Mental Status: She is alert and oriented to person, place, and time. Gait: Gait abnormal (slow gait, using cane). Comments: A&O to self, location, date, month, year, day Mild essential tremor ? Diagnostics: Glucose (mg/dL) Date Value 01/09/2024 116 Potassium (mmol/L) Date Value 01/09/2024 3.9 Sodium (mmol/L) Date Value 01/09/2024 135 Chloride (mmol/L) Date Value 01/09/2024 95 CO2 (mmol/L) Date Value 01/09/2024 26 Creatinine (mg/dL) Date Value 01/09/2024 0.85 BUN (mg/dL) Date Value 01/09/2024 13 Anion Gap (mmol/L) Date Value 01/09/2024 14 Calcium, Total (mg/dL) Date Value 01/09/2024 8.8 Protein, Total (g/dL) Date Value 01/09/2024 7.1 Albumin (g/dL) Date Value 01/09/2024 4.3 Bilirubin, Total (mg/dL) Date Value 01/09/2024 0.3 Alkaline Phosphatase (U/L) Date Value 01/09/2024 111 AST (U/L) Date Value 01/09/2024 28 ALT (U/L) Date Value 01/09/2024 23 CBC: Hemoglobin (g/dL) Date Value 01/09/2024 13.1 Hematocrit (%) Date Value 01/09/2024 41.6 WBC (k/uL) Date Value 01/09/2024 8.24 Platelet Count (k/uL) Date Value 01/09/2024 188 TSH (uU/mL) Date Value 02/13/2021 1.760 Vitamin B12 (pg/mL) Date Value 09/07/20[address]/MRI head - CT brain 11/28/2022 * * *Final Report* * * DATE OF EXAM: Nov 28 2022 10:36AM [facility] 0504 - CT BRAIN WO IVCON / PROCEDURE REASON: Headache, sudden, severe * * * * Physician Interpretation * * * * EXAMINATION: CT BRAIN WO IVCON CLINICAL HISTORY: The patient is a 77-year-old female with sudden onset of headache. TECHNIQUE: Serial axial images without IV contrast were obtained from the vertex to the foramen magnum. MQ: [id number] CT Radiation dose: Integrated Dose-Length Product (DLP) for this visit = 704 mGy*cm CT Dose Reduction Employed: No dose reduction techniques were required COMPARISON: None. RESULT: Post-operative change: None. Acute change: No evidence of an acute infarct or other acute parenchymal process. Hemorrhage: No evidence of acute intracranial hemorrhage. ECASS hemorrhagic transformation score: Not Applicable Mass Lesion / Mass Effect: There is no evidence of an intracranial mass or extraaxial fluid collection. No significant mass effect. Chronic change: None apparent. Parenchyma: There is slight generalized volume loss probably appropriate for the patient's age of 77. The rest of the brain parenchyma is otherwise within normal limits for age. Ventricles: Ventricular enlargement concordant with the degree of parenchymal volume loss. Paranasal sinuses and skull base: The visualized paranasal sinuses are grossly clear. The skull base and imaged soft tissues are unremarkable. Photogrammetric Stereo Compiler (topogram) images: Scattered dental amalgam is present. Several teeth are missing. Assessment and Plan Ms. Akila De Los Santos is a 79 year old year old lady referred for Comprehensive Geriatrics Assessment, as referred by PCP for evaluation of memory impairment. ? ASSESSMENT/PLAN: 1. Subjective memory complaints - ICD9: 780.93, ICD10: R41.89 (primary diagnosis) 2. Encounter for geriatric assessment - ICD9: V72.85, ICD10: Z01.89 Mood and Mentation: - Cognitive testing today overall cognitive test performance was in the 67th percentile when compared to individuals of a similar age and gender, suggesting unlikely presence of cognitive impairment - GDS 2/15 suggesting minimal depression - ISA-7 10/13 suggesting minimal anxiety - Given testing results, history, most suspicious for subjective memory changes likely normal age related - Discussed importance of sleep, recommended to practice sleep hygiene SLEEP HYGIENE INSTRUCTIONS Homeostatic Drive for Sleep - Avoid naps, except for a brief 10 to.15 minute nap eight hours after arising; but check with your physician first, because in some sleep disorders naps can be beneficial. - Restrict sleep period to average number of hours you have actually slept per night in the preceding week. Quality of sleep is important. Too much time in the bed can decrease quality on subsequent nights. - Get regular exercise each day, preferable 40 minutes each day of an. Activity that causes sweating. It is best to finish exercise at least six hours before bed time. - Take a hot bath to raise your temperature within two hours before bedtime. A hot drink may help you relax as well as warm you. - Keep a regular time out of bed 7 days a week. - Do not expose yoursclf bright light if you have to get up at night. - Get at least one half hour of sunlight within 30 minutes of your out-of-bed time. Drug Effects Do not smoke -to get yourself back to sleep. Do not smoke after 7:00 P.M:, or give up smoking entirely, . Avoid caffeine entirely for a four-week trial period; limit caffeine use to no more than three cups no later than 10:00 A.M.. Light to moderate use of alcoholic beverages.. Alcohol can fragment sleep over second half of sleep period. Arousal in Sleep Setting - Keep clock face turned away, and do not find out what time it is when you wake up at night.. - Avoid strenuous exercise after 6:00 P.M. - Do not eat or drink heavily for thee hours before bedtime. A light bedtime snack may help. - If you have trouble with regurgitation, be especially careful to avoid heavy meals and spices in the evening. Do not retire too hungry or too full. Head of bed may need to be raised. - Keep your room dark, quiet, well ventilated, and at a comfortable temperature throughout the night. Earplugs and eyeshades are OK. - Use a bedtime ritual. Reading before lights-out may be helpful if it is not, occupationally related.. - List problems and one-sentence next steps for the following day. Set aside a worry time. Forgive yourself and others. - Learn simple self-hypnosis to use if you wake up at night. Do not try too hard to sleep; instead, concentrate on the pleasant feeling of relaxation. - Use stress management in the daytime. - Avoid unfamiliar sleep environments. - Be sure mattress is not-too soft or too firm' pillow is right height and firmness.An occasional sleeping pill is probably all right. - Use bedroom only for sleep; do not work or do other activities that lead to prolonged arousal. - If possible, make arrangements for care-giving activities (children, others, pets) to be assumed by someone else. - Medication management system: no active concerns - Driving Evaluation: no active concerns - Finances Management: no active concerns - Risk for elder abuse/exploitation: low risk - Discussed with patient, currently no preventive medications for dementia, no medication/supplement have shown to improve memory, Suggested Blue [place]ones lifestyle principles: I) Routine exercise: 150 minuets per week II) Mediterranean/MIND diet III) Increased socialization IV) Sense of purpose/Ikigai V) Cognition stimulation: Reading, crossword puzzles, word jumbles, Soduko, Lumosity Mobility: - Patient is Independent, with Fair functional baseline. No indications to intervene at present Medications: - High Risk Geriatric Medications identified - Beer's / STOPP Criteria: No Charan Dukes, DO Return if symptoms worsen or fail to improve. Thank you very much for the opportunity to participate in the care of your patient. Total time in direct patient contact = 47 min. Greater than 50% of the time was spent in counseling and/or coordination of care. Additional time outside encounter was spent totaling 10 min for chart, results review and interpretation, family/caregiver corroboration of history and screening tools as well as coordination of care and community resources. CHARAN DUKES DO GERIATRIC MEDICINE [facility] Discussed the above with the patient using shared decision making. The patient is in agreement with the diagnostic and treatment plans. This note was partially generated using [email or web address] voice recognition system, and there may be some incorrect words, spellings, and punctuation that were not noted in checking the note before saving. documented in this encounter [facility] 05-04-2024 Note HNO ID: [id number] Author: CHARAN DUKES DO Service: ? Author Type: Physician Type: Progress Notes Filed: 05/04/2024 14:14 Note Text: Charan Dukes DO [facility] [address] [place] [address] COMPREHENSIVE GERIATRICS ASSESSMENT Patient presents with: New Patient Evaluation: Memory History of Present Illness Ms. Akila De Los Santos is a 79 year old year old lady referred for Comprehensive Geriatrics Assessment, as referred by PCP for evaluation of memory impairment. She is here with herself. Akila De Los Santos has PMHX of HTN, DM, Asthma, chronic pain, hot flashes on Celexa. No recent hospitalization. 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: singing Mood: stated good, denies depression, denies feel lonely Sleep: sleeps on average 6-7 hr, stated sleep is fragmented due to nocturia, stated mostly feel refresh once woke up, unsure if snoring, no prior sleep study Appetite: stated good Exercise: currently limited due to whether Family hx: mother had memory issues later in age, no known mood disorders Education: college degree 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 Yes Is a power of chemical compounder in place for financial needs? Patient unsure Is a power of chemical compounder in place for health care decisions? Yes Is palliative or hospice care appropriate for the patient? No II) Mentation: [place]anna Cognitive Exam (MOCA): not on file Cognitive Test evaluation: Cognitive Testing Evaluation Introduction: Akila De Los Santos 1945 Female This 79 year old Female was administered a battery of neurocognitive testing on 05/04/2024. Tests Administered: Trails A, Trails B, Digit Symbol Substitution, Stroop, Immediate Recognition, Delayed Recognition The combined test administration time was 11 minutes Test Results: Cognitive testing was provided via a battery of cognitive assessments. The pattern of test scores indicate that results are valid. A Clinical Report with further description of scores and results is also available. Overall: Patient tested in the 67th percentile (standard score of 107). Trails A: Patient tested in the 61st percentile (scaled standard score of 104). Trails B: Patient tested in the 81st percentile (scaled standard score of 113). Digit Symbol Substitution: Patient tested in the 49th percentile (scaled standard score of 100). Stroop: Patient tested in the 10th percentile (scaled standard score of 81). Immediate Recognition: Patient tested in the 85th percentile (scaled standard score of 116). Delayed Recognition: Patient tested in the 91st percentile (scaled standard score of 120). Interpretation of Test Scores: Examination of individual component tests shows: Attention - Trails A: unlikely impairment Mental Flexibility - Trails B: unlikely impairment Executive Function - Digit Symbol Substitution: unlikely impairment Executive Function - Stroop: possible impairment Memory - Immediate Recognition: unlikely impairment Memory - Delayed Recognition: unlikely impairment The patient?s overall cognitive test performance was in the 67th percentile when compared to individuals of a similar age and gender, suggesting unlikely presence of cognitive impairment. FAST (Functional Assessment Staging Tool) 2. Complains of forgetting location of objects; subjective word finding difficulties only CDR Dementia Scale 1) Subjective Memory Loss: YES 2) Measurable Memory Loss: NO 3) IADLs: NO 4) BADLs: NO Driving Safely: Yes > 50% 6) Medications: No Mood Evaluation and Screening GDS: 05/04/2024 Geriatric Depression Scale Are you basically satisfied with your life? 0 Have you dropped many of your activities and interests? 0 Do you feel that your life is empty? 0 Do you often get bored? 0 Are you in good spirits most of the time? 0 Are you afraid that something bad is going to happen to you? 0 Do you feel happy most of the time? 0 Do you often feel helpless? 0 Do you prefer staying at home to going out and doing new things? 0 Do you feel you have more problems with memory than most people? 1 Do you think it is wonderful to be alive now? (more content not included)... [facility] 04-27-2024 Instructions Kalin Esposito MD - 04/27/2024 10:43 AM EST - For the next 6 days you will take oral steroids to help with your flare of your right leg pain. I also want you to increase your Lyrica according to the instructions below. I sent a new prescription for 75 mg capsules. Please combine these with your 50 mg capsules that you already have until you are up to a dose of 75 mg 3 times a day Increasing Dose of Pregabalin (Lyrica) Schedule: AM PM BEDTIME Day 1-7 50 50 75mg Day 7-14 75 50 75mg Day 15+ 75 75 75mg If you are unable to tolerate an increased dose, return to the previous dose for 7 days and then try increasing again. If still unable to tolerate, then stay on your current dose until your next appointment. documented in this encounter [facility] 04-27-2024 History of Present illness Narrative Images from the original note were not included. [facility] Today's Date: 04/27/2024 Name: Akila De Los Santos : 1945 Purpose: Follow-up Patient Evaluation - This is an established patient, returning today for continued evaluation and management of the chief complaint noted below Chief complaint: lumbar pain Pertinent Past Medical History: asthma, DM2, PAD, TIA Pertinent Past Surgeries: No spine Plan at last visit: (Seen on 03/05/24 by Ashley Fleming CNP) PLAN: Akila De Los Santos would benefit from the following to reach personal goals for decreasing pain, improving function and work participation, and/or improving quality of life: Medications: Requested Prescriptions Signed Prescriptions Disp Refills traMADol (ULTRAM) 50 mg tablet 30 tablet 2 Sig: Take 1 tablet by mouth at bedtime as needed for pain for up to 90 days. Patient should start on March 10, 2024. pregabalin (LYRICA) 50 mg capsule 90 capsule 5 Sig: Take one pill three times per day Interventional Procedures: None Studies: URINE DRUG SCREEN (IN OFFICE TODAY) AMALIA Functional Restorationism: NONE Referrals: No additional considerations at present Follow-up:Keep appointment with Dr Esposito in April Depending on response to the above plan, consider: Repeat caudal or SIJ prn Interval History: Overall pain and functional disability since last visit: Worse New Complaints since last visit: No Beginning yesterday, the patient began to have a significant flare of her right lower extremity radicular pain, which had previously been very well-controlled on Lyrica and had not bothered her in a very long time. She did not have any new injury. The pain is burning of the anterior thigh and calf and kept her from sleeping last night, it is very sensitive to the touch Current Pain Medications: Neuropathics: Lyrica 50 mg TID NSAIDS: Muscle Relaxants: Topicals: Other Prescription or OTC Pain Medications: Tylenol Opioids (when applicable): Tramadol 50 mg daily as needed MEDICATION NAME tramadol STRENGTH 50 LAST FILL DATE 03/11/2024 DATE LAST DOSE TAKEN 04/26/23 QUANTITY FILLED 30 QUANTITY REMAINING 0 Urine Drug Screen Questionnaire URINE DRUG SCREEN Completed Date 04/27/2024 Opioid Risk Tool Opiod Risk Tool Date Completed 04/27/2024 Anti-depressants or Mood-Stabilizers: Celexa Anti-Coagulants: None Therapies Attended (Current or Most Recent): No Current Therapies 01/21/2023 04/04/2023 07/18/2023 10/10/2023 01/02/2024 03/05/2024 04/27/2024 AG SPINE COMBINATION Questionnaire URINE DRUG SCREEN URINE DRUG SCREEN URINE DRUG SCREEN URINE DRUG SCREEN URINE DRUG SCREEN URINE DRUG SCREEN URINE DRUG SCREEN Completed Date 01/21/2023 04/04/2023 07/18/2023 10/10/2023 01/02/2024 03/05/2024 04/27/2024 Questionnaire NA/OIC NA/OIC NA/OIC NA/OIC Completed Date 01/21/2023 07/18/2023 01/02/2024 03/05/2024 Comments AMALIA today Questionnaire Opiod Risk Tool Opiod Risk Tool Completed Date 04/04/2023 04/27/2024 Notable Events During Course of Treatment: N/A Treatment History: PAIN PROCEDURES: DATE PROCEDURE IMPROVEMENT 11/16/23 Caudal 50-80% 08/09/2022 Bilat SI Joint 85% (01/21/2023 ) 02/01/2022 Caudal CHAZ 70% x 7 months 11/26/2021 Bilat SI Joint 85% x nearly 6 months 04/07/2021 Bilat SI Joint 90% x 6 months Data Reviewed Today: Allergies: ALLERGIES Allergen Reactions Aspirin Shortness of Breath Lisinopril Swelling Latex Rash Penicillins Hives, Rash Sulfamethoxazole Hives Trileptal [Oxcarbaz* Other: See Comments Balance Problems after taking for a few days Social History Tobacco Use Smoking status: Former Types: Cigarettes Smokeless tobacco: Never Vaping Use Vaping status: Never Used Substance Use Topics Alcohol use: Never Drug use: Never 04/16/2024 04/24/2024 INTAKE PAIN ASSESSMENT Are you having pain associated with your visit today? Yes, Provider notified Yes, Provider notified Pain Scales Verbal (Numeric Rating or Visual Analog Scale) Pain Level 6 9 Pain Location Hand-Left Back-Lower Description Sharp;Stabbing Aching;Sharp;Sore;Throbbing;Stabbi ng;Radiating Duration Amount of Time 2 2 Duration Units Months Hours Frequency Intermittent Intermittent Intervention/Comfort measure Medication;Relaxation;Heat;Other: See comment Comments The pain level varies and I don't hurt all of the time. Sometimes topical creams help. Compliance: PDMP website checked and validated on 04/27/2024 by Kalin Esposito MD All prescriptions have been APPROPRIATELY filled. No suspicious activity was identified. 01/21/2023 04/04/2023 07/18/2023 10/10/2023 01/02/2024 03/05/2024 04/27/2024 AG SPINE COMBINATION Questionnaire URINE DRUG SCREEN URINE DRUG SCREEN URINE DRUG SCREEN URINE DRUG SCREEN URINE DRUG SCREEN URINE DRUG SCREEN URINE DRUG SCREEN Completed Date 01/21/2023 04/04/2023 07/18/2023 10/10/2023 01/02/2024 03/05/2024 04/27/2024 Questionnaire NA/OIC NA/OIC NA/OIC NA/OIC Completed Date 01/21/2023 07/18/2023 01/02/2024 03/05/2024 Comments AMALIA today Questionnaire Opiod Risk Tool Opiod Risk Tool Completed Date 04/04/2023 04/27/2024 (All drug screens are appropriate unless indicated otherwise) Risk Assessment: ISA-7: 11/19/2022 01/02/2024 ISA - 7 SCORES Score 0 1 (0-4) minimal anxiety, (5-9) mild anxiety, (10-14) moderate anxiety, (15-21) severe anxiety PHQ-9: 04/08/2021 02/15/2022 01/02/2024 PHQ-9 Score 0 3 1 (0-4) minimal depression, (5-9) mild depression, (10-14) moderate depression, (15-19) moderately severe depression, (20-27) severe depression Diagnostic Studies: Relevant Imaging: MRI Spine Report MRI CERVICAL SPINE WO IVCON Exam End: 08/25/2022 3:08 PM (Final result) Narrative: * * *Final Report* * * DATE OF EXAM: Aug 25 2022 3:08PM Cynthia Jack7 - MRI CERVICAL SPINE WO IVCON / PROCEDURE REASON: multiple diagnoses * * * * Physician Interpretation * * * * EXAMINATION: MRI CERVICAL SPINE WO IVCON CLINICAL HISTORY: Spondylolysis of cervical region. Spinal stenosis of cervical region . TECHNIQUE: Routine cervical spine MR protocol without gadolinium. MQ: [id number] COMPARISON: Cervical spine radiographs 07/30/2022 RESULT: Counting reference: Craniocervical junction. Anatomic Variants: None. Localizer images: No additional findings. Alignment: There is straightening of normal cervical lordosis due to spondylolisthesis. There is mild retrolisthesis of C3 on C4 and C6 on C7. Craniocervical junction: Craniocervical junction is normal. Cord: The visualized cord is within normal limits of signal intensity and morphology. Bone marrow signal/fracture: No evidence of pathologic marrow infiltration. No evidence of prior fracture. There is moderate disc space height loss at C5-C6 and C6-C7. There are Modic type II degenerative endplate changes at C5-C6 and C6-C7 with vertebral body osteophyte formation. Cervical soft tissues: The paraspinal soft tissues are within normal limits. C2-C3: Canal and foramina are patent. C3-C4: Disc osteophyte complex effaces the ventral CSF contacting the ventral cord and along with ligamentum flavum thickening causes moderate stenosis of the spinal canal. There is severe left and moderate right neural foraminal narrowing due to uncovertebral and facet joint degenerative change. C4-C5: Disc osteophyte complex causes mild narrowing of the spinal canal. There is severe narrowing of both neural foramina due to uncovertebral arthropathy. C5-C6: Disc osteophyte complex impresses on the ventral thecal sac but without narrowing of the spinal canal. There is severe left and moderate right neural foraminal narrowing due to uncovertebral arthropathy. C6-C7: Disc osteophyte complex impresses on the ventral thecal sac with minimal narrowing of the spinal canal. There is severe left and moderate right neural foraminal narrowing due to uncovertebral arthropathy. C7-T1: Canal and foramina are patent. Impression: IMPRESSION: 1. Multilevel degenerative cervical spondylosis with straightening of cervical lordosis. 2. At C3-C4 there is moderate stenosis of the spinal canal and severe left neural foraminal stenosis. 3. There is multilevel high-grade neural foraminal stenosis as detailed. Anatomic Variant: None. Assume 7 cervical vertebrae with counting from the craniocervical junction. Can Machine Operator: PSCB Transcribe Date/Time: Aug 26 2022 3:21P Dictated by : TREVOR MELÉNDEZ MD This examination was interpreted and the report reviewed and electronically signed by: TREVOR MELÉNDEZ MD on Aug 26 2022 3:32PM EST MRI Lumbar 05/20/21: Electrodiagnostic Study (EMG): None Recent Labs: Creatinine Date Value Ref Range Status 01/09/2024 0.85 0.58 - 0.96 mg/dL Final No results found for: EGFR Glucose, Point of Care Date Value Ref Range Status 11/16/2023 125 (A) 74 - 99 mg/dL Final Comment: Location:[facility], [address] [place] [address], [facility] The Accu-Chek Inform II glucose meter has not been approved for testing on patients receiving intensive medical intervention or therapy and results from this point of care glucose test should not be used for patient management decisions in these cases. Inaccurate results may also occur from other interfering factors, such as N-acetylcysteine (blood concentrations of greater than 5mg/dL), galactose, extremes of hematocrit (<10 or >65), or high doses of ascorbic acid (vitamin C) greater than 3mg/dL. Consider alternate testing mechanisms (e.g. core lab, blood gas instrument) in the above situations. Current Medications, Past Medical History, Past Surgical History, Family History, Social History and Review of Systems: On today's date, noted above, I have confirmed and edited as necessary, the PFSH and ROS obtained by others. Physical Exam: 04/27/24 1014 Pulse: 76 SpO2: 95% LUMBAR MUSCULOSKELETAL/NEURO EXAM Inspection: - Symmetric without atrophy Gait: - Antalgic Strength: LEFT RIGHT Hip flexion (L2) 5 5 Knee extension (L3) 5 5 Knee flexion (L4): 5 5 Dorsiflexion (L5) 5 5 Plantarflexion (S1): 5 5 Neural Tension Signs: -Straight Leg Exam Negative Bilateral lower limb(s) Sensation: -Hyperesthesia to light touch of the right anterior thigh extending to the knee Reflexes: LEFT RIGHT Patellar (L4) Normal 2+ Normal 2+ Achilles (S1) Normal 2+ Normal 2+ Clonus Negative Negative Hip Range of Motion: - Normal with None pain at end range internal rotation - Normal with None pain at end range external rotation Sacroiliac Maneuvers: (08/2022) - SIJ tenderness: Positive Bilateral - Won's: positive for concordant pain referred over the superior sacral sulcus - Pelvic Distraction: positive for concordant pain referred over the superior sacral sulcus - Sacral Thrust: positive for concordant pain referred over the superior sacral sulcus - Hip Hyperextension: positive for concordant pain referred over the superior sacral sulcus IMPRESSION: 79 year old female presents with with significant past medical history for low back decompressive surgeries x 3, scoliosis, who presents with complaint(s) of ongoing axial low back pain, lower limb radicular symptoms due to spinal stenosis. Unfortunately since yesterday without inciting event she is having significant right lower extremity pain, described as burning and sensitivity over the anterior thigh and funes. Appears to be neuropathic in nature, I will prescribe her a 6-day steroid pack, and titrate her Lyrica to 75 mg TID. Otherwise we will continue her tramadol 50 mg which she takes daily as needed, sometimes does not take if Tylenol suffices to manage her pain. If her significant right lower extremity symptoms persist, EMG may be indicated Patient is being treated for the conditions noted above, who presents today for medication refill. Refill without adjustments were provided after verifying the history noted above, performing a focused physical examination, and reviewing available compliance data including (where available) the PDMP/OARRS system, pill counts, toxicology screens. OPIOID ASSESSMENT: No signs of abuse, no adverse events noted, patient experiences significant benefit of analgesia, and patient demonstrates increased activity while on these medications. Alternatives to opioid therapy have been discussed. The patient has demonstrated functional improvement and is on the minimum dose which maintains that improvement. The patient has been evaluated for risks of opioid related harms, including using a standardized tool (ORT) for evaluation of the risk of addiction. Risks of opioid therapy have been discussed, including potential for addiction and risk of overdose and risks to others who may obtain access to the patient's medications. The patient understands that opioid therapy will be tapered to lower dosages or discontinued if benefits do not outweigh the risks of treatment. Need for opioids was evaluated today and will be reassessed at next office visit in 30-90 days. Diagnoses: (M96.1) Post laminectomy syndrome Some elements of my note were copied from 03/05/2024, which have been updated where appropriate and reflect my current medical decision making for today 04/27/2024. PLAN: Akila De Los Santos would benefit from the following to reach personal goals for decreasing pain, improving function and work participation, and/or improving quality of life: Medications: Requested Prescriptions Signed Prescriptions Disp Refills methylPREDNISolone (MEDROL, BECKI,) 4 mg Dose-Pack 21 tablet 0 Sig: Take according to packet instructions pregabalin (LYRICA) 75 mg capsule 90 capsule 5 Sig: Take 1 capsule by mouth three times a day for 180 days. traMADol (ULTRAM) 50 mg tablet 30 tablet 1 Sig: Take 1 tablet by mouth at bedtime as needed for pain for up to 60 days. Interventional Procedures: None Studies: None Functional Restorationism: NONE Referrals: No additional considerations at present Follow-up: 2 months for medication refills Depending on response to the above plan, consider: EMG if RLE symptoms persist, repeat caudal Patient Education, Compliance and Clinic Policies Reviewed and/or Discussed Today: None There are no Patient Instructions on file for this visit. Attribution: In addition to reviewing the information noted above, some elements copied from my most recent clinical note(s), including the physical exam (completed in entirety today), and the impression and plan sections, have been updated where appropriate. All reflect current medical decision making from today's date. Kalin Esposito MD Pain Management [facility] This note was partially generated using [email or web address] voice recognition system, and there may be some incorrect words, spellings, and punctuation that were not noted in checking the note before saving. What area of pain would you like to focus on today? LBP radiates into RLE What is your pain level in this area from 1-10? 9 Since your last visit, have you had any injections or procedures to treat this pain? N- caudal 11/15 (KF) If so, what percent has your pain improved, and for how long did it help? N% for N Have you had any new testing, imaging, or specialist visits related to the pain since your last visit? N Do you have any new significant changes or symptoms related to this pain? N If time allows in this 15 minute visit, are there any new complaints apart from the area above that you would like to address? N Review of Systems Constitutional: Negative for activity change, appetite change, chills and fever. Genitourinary: Negative for difficulty urinating. Musculoskeletal: Positive for arthralgias, back pain, gait problem and joint swelling. Negative for myalgias, neck pain and neck stiffness. Neurological: Positive for weakness. Negative for numbness and headaches. Psychiatric/Behavioral: Positive for sleep disturbance. Negative for dysphoric mood and suicidal ideas. The patient is not nervous/anxious. documented in this encounter [facility] 04-27-2024 Note HNO ID: [id number] Author: KALIN ESPOSITO MD Service: ? Author Type: Physician Type: Progress Notes Filed: 04/27/2024 11:28 Note Text: [facility] Today's Date: 04/27/2024 Name: Akila De Los Santos : 1945 Purpose: Follow-up Patient Evaluation - This is an established patient, returning today for continued evaluation and management of the chief complaint noted below Chief complaint: lumbar pain Pertinent Past Medical History: asthma, DM2, PAD, TIA Pertinent Past Surgeries: No spine Plan at last visit: (Seen on 03/05/24 by Ashley Fleming CNP) PLAN: Akila De Los Santos would benefit from the following to reach personal goals for decreasing pain, improving function and work participation, and/or improving quality of life: Medications: Requested Prescriptions Signed Prescriptions Disp Refills traMADol (ULTRAM) 50 mg tablet 30 tablet 2 Sig: Take 1 tablet by mouth at bedtime as needed for pain for up to 90 days. Patient should start on March 10, 2024. pregabalin (LYRICA) 50 mg capsule 90 capsule 5 Sig: Take one pill three times per day Interventional Procedures: None Studies: URINE DRUG SCREEN (IN OFFICE TODAY) AMALIA Functional Restorationism: NONE Referrals: No additional considerations at present Follow-up:Keep appointment with Dr Esposito in April Depending on response to the above plan, consider: Repeat caudal or SIJ prn Interval History: Overall pain and functional disability since last visit: Worse New Complaints since last visit: No Beginning yesterday, the patient began to have a significant flare of her right lower extremity radicular pain, which had previously been very well-controlled on Lyrica and had not bothered her in a very long time. She did not have any new injury. The pain is burning of the anterior thigh and calf and kept her from sleeping last night, it is very sensitive to the touch Current Pain Medications: Neuropathics: Lyrica 50 mg TID NSAIDS: Muscle Relaxants: Topicals: Other Prescription or OTC Pain Medications: Tylenol Opioids (when applicable): Tramadol 50 mg daily as needed MEDICATION NAME tramadol STRENGTH 50 LAST FILL DATE 03/11/2024 DATE LAST DOSE TAKEN 04/26/23 QUANTITY FILLED 30 QUANTITY REMAINING 0 Urine Drug Screen Questionnaire URINE DRUG SCREEN Completed Date 04/27/2024 Opioid Risk Tool Opiod Risk Tool Date Completed 04/27/2024 Anti-depressants or Mood-Stabilizers: Celexa Anti-Coagulants: None Therapies Attended (Current or Most Recent): No Current Therapies 01/21/2023 04/04/2023 07/18/2023 10/10/2023 01/02/2024 03/05/2024 04/27/2024 AG SPINE COMBINATION Questionnaire URINE DRUG SCREEN URINE DRUG SCREEN URINE DRUG SCREEN URINE DRUG SCREEN URINE DRUG SCREEN URINE DRUG SCREEN URINE DRUG SCREEN Completed Date 01/21/2023 04/04/2023 07/18/2023 10/10/2023 01/02/2024 03/05/2024 04/27/2024 Questionnaire NA/OIC NA/OIC NA/OIC NA/OIC Completed Date 01/21/2023 07/18/2023 01/02/2024 03/05/2024 Comments AMALIA today Questionnaire Opiod Risk Tool Opiod Risk Tool Completed Date 04/04/2023 04/27/2024 Notable Events During Course of Treatment: N/A Treatment History: PAIN PROCEDURES: DATE PROCEDURE IMPROVEMENT 11/16/23 Caudal 50-80% 08/09/2022 Bilat SI Joint 85% (01/21/2023 ) 02/01/2022 Caudal CHAZ 70% x 7 months 11/26/2021 Bilat SI Joint 85% x nearly 6 months 04/07/2021 Bilat SI Joint 90% x 6 months Data Reviewed Today: Allergies: ALLERGIES Allergen Reactions Aspirin Shortness of Breath Lisinopril Swelling Latex Rash Penicillins Hives, Rash Sulfamethoxazole Hives Trileptal [Oxcarbaz* Other: See Comments Balance Problems after taking for a few days Social History Tobacco Use Smoking status: Former Types: Cigarettes Smokeless tobacco: Never Vaping Use Vaping status: Never Used Substance Use Topics Alcohol use: Never Drug use: Never 04/16/2024 04/24/2024 INTAKE PAIN ASSESSMENT Are you having pain associated with your visit today? Yes, Provider notified Yes, Provider notified Pain Scales Verbal (Numeric Rating or Visual Analog Scale) Pain Level 6 9 Pain Location Hand-Left Back-Lower Description Sharp;Stabbing Aching;Sharp;Sore;Throbbing;Stabbi ng;Radiating Duration Amount of Time 2 2 Duration Units Months Hours Frequency Intermittent Intermittent Intervention/Comfort measure Medication;Relaxation;Heat;Other: See comment Comments The pain level varies and I don't hurt all of the time. Sometimes topical creams help. Compliance: PDMP website checked and validated on 04/27/2024 by Kalin Esposito MD All prescriptions have been APPROPRIATELY filled. No suspicious activity was identified. 01/21/2023 04/04/2023 07/18/2023 10/10/2023 9/ (more content not included)... [facility] 04-27-2024 Note HNO ID: [id number] Author: KADEEM HENLEY LPN Service: ? Author Type: LICENSED NURSE Type: Progress Notes Filed: 04/27/2024 11:28 Note Text: What area of pain would you like to focus on today? LBP radiates into RLE What is your pain level in this area from 1-10? 9 Since your last visit, have you had any injections or procedures to treat this pain? N- caudal 11/15 (KF) If so, what percent has your pain improved, and for how long did it help? N% for N Have you had any new testing, imaging, or specialist visits related to the pain since your last visit? N Do you have any new significant changes or symptoms related to this pain? N If time allows in this 15 minute visit, are there any new complaints apart from the area above that you would like to address? N Review of Systems Constitutional: Negative for activity change, appetite change, chills and fever. Genitourinary: Negative for difficulty urinating. Musculoskeletal: Positive for arthralgias, back pain, gait problem and joint swelling. Negative for myalgias, neck pain and neck stiffness. Neurological: Positive for weakness. Negative for numbness and headaches. Psychiatric/Behavioral: Positive for sleep disturbance. Negative for dysphoric mood and suicidal ideas. The patient is not nervous/anxious. [facility] 04-16-2024 Note HNO ID: [id number] Author: CHUCK ESCOBAR PA-C Service: ? Author Type: Physician Data Programmer Type: Progress Notes Filed: 04/16/2024 15:14 Note Text: ORTHOPAEDIC OFFICE NOTE CHIEF COMPLAINT: New, Pain, and Swelling of the Left Hand HISTORY OF PRESENT ILLNESS Akila De Los Santos is a 79 year old female right hand dominant who presents for evaluation of left hand pain and swelling. Patient states her pain has improved from when she initially had her x-rays done. She localizes her pain to left thumb CMC joint and left index finger MCP joint. She admits to applying Aspercreme and Biofreeze which have helped some. She admits to wearing compression gloves, which also have helped some. She is here today to discuss other treatment options. Location: left thumb Severity: 6 on a scale of 0-10 Duration of symptoms: few months Date of injury: None Symptoms have Improved some Previous treatment: Aspercreme, Biofreeze, copper gloves, activity modification Numbness/tingling: No Nocturnal symptoms: Yes Radiating: Yes Injections: No Therapy: No Context worse with Activity/Motion and Gripping Smoking status: Tobacco Use: Types: Cigarettes Reviewed nursing note and current pain scale. PAIN EVALUATION 04/09/2024 1345 04/16/2024 1308 Pain Level: 3 6 Pain Location: Hand-Left Hand-Left Description: Shooting Sharp;Stabbing Duration Amount of Time: 2 2 Duration Units: Hours Months Frequency: Intermittent Intermittent Intervention/Comfort measure: Medication;Massage -- Comments: Pain is not present all the time. It has calmed down a lot since this first started. -- PAST MEDICAL HISTORY Past medical, surgical, family, and social histories have been reviewed and updated with the patient today and are located elsewhere in the medical record. Diabetes:Yes ALLERGIES ALLERGIES Allergen Reactions Aspirin Shortness of Breath Lisinopril Swelling Latex Rash Penicillins Hives, Rash Sulfamethoxazole Hives Trileptal [Oxcarbaz* Other: See Comments Balance Problems after taking for a few days PHYSICAL EXAMINATION Resp 20 Ht 154.9 cm (5' 1) Wt 67.1 kg (148 lb) BMI 27.96 kg/m? Body mass index is 27.96 kg/m?. General Appearance: Well appearing, alert, in no acute distress, well-hydrated, well nourished. Psyche: she is alert and oriented and cooperative to our examination. Neuro: she alert and oriented times: 3. Normal affect times: 3. Gait and station: normal. Pulmonary: she has non labored breathing. There is no evidence of cyanosis. There is no clubbing of fingernails. she has no pursed lips. Head: Normocephalic and atraumatic Neck: Supple with no JVD Lymph: There is no palpable epitrochlear Musculoskeletal- Left Hand/Wrist/Upper Extremity Exam: Skin: There is mild swelling of left thumb CMC joint. No ecchymosis. There are no skin lacerations or abrasions. Inspection: There is no ulnar drift of the fingers. There is no intrinsic muscular atrophy. There is a + shoulder sign over the thumb CMC joint. There is no dorsal subluxation of the ulnar head. Cardiovascular: <3 sec capillary refill, +2 radial pulse palpated. Tenderness to palpation: Over left thumb CMC joint. Mild TTP noted to left index finger MCP joint. ROM: Able to make fist. No active or passive triggering of index finger or thumb noted. Sensation: Normal sensation Atrophy: None Special tests: - Thumb CMC grind: Positive - Snuffbox tenderness: Negative REVIEW OF STUDIES DATE OF EXAM: Mar 29 2024 2:39PM [id number] - XR HAND 3V PA/LAT/OBL LT / PROCEDURE REASON: Left hand pain * * * * Physician Interpretation * * * * HISTORY: 79-YEAR-OLD FEMALE WITH Left hand pain . LT hand pain about a month ago that is better now, per pt. Pt states no specific injury TECHNIQUE: XR WRIST 3V PA/LAT/OBL LT, XR HAND 3V PA/LAT/OBL LT Laterality: LEFT Number of different views (projections): 3 COMPARISON: None RESULT: Left wrist and left hand: Narrowing at triscaphe joint. The trapezoid scaphoid articulation. Marked narrowing of the first CMC joint with osteophytes and lateral subluxation of the first metacarpal at the joint. The remaining carpal bones, intercarpal joint spaces and carpal alignment are normal. No fracture. No erosions. Degenerative changes of the IP joint of the thumb and mild asymmetric narrowing at DIP joint of the second third digit. The second digit is held in a slightly flexed position throughout the examination the MCP joint. No fracture. No erosions. IMPRESSION IMPRESSION: DEGENERATIVE CHANGES OF FIRST CMC JOINT AND. Can Machine Operator: PSCB Transcribe Date/Time: Mar 31 2024 4:01P Dictated by : YASMEEN HAGEN MD This examination was interpreted and the report reviewed and electronically signed by: YASMEEN HAGEN MD on Mar 31 2024 4:04PM EST ASSESSMENT AND PLAN 1. Arthritis of carpometacarpal (CMC) joint of left thumb - ICD9: 716.94, ICD1 (more content not included)... [facility] 04-16-2024 History of Present illness Narrative Images from the original note were not included. ORTHOPAEDIC OFFICE NOTE CHIEF COMPLAINT: New, Pain, and Swelling of the Left Hand HISTORY OF PRESENT ILLNESS Akila De Los Santos is a 79 year old female right hand dominant who presents for evaluation of left hand pain and swelling. Patient states her pain has improved from when she initially had her x-rays done. She localizes her pain to left thumb CMC joint and left index finger MCP joint. She admits to applying Aspercreme and Biofreeze which have helped some. She admits to wearing compression gloves, which also have helped some. She is here today to discuss other treatment options. Location: left thumb Severity: 6 on a scale of 0-10 Duration of symptoms: few months Date of injury: None Symptoms have Improved some Previous treatment: Aspercreme, Biofreeze, copper gloves, activity modification Numbness/tingling: No Nocturnal symptoms: Yes Radiating: Yes Injections: No Therapy: No Context worse with Activity/Motion and Gripping Smoking status: Tobacco Use: Types: Cigarettes Reviewed nursing note and current pain scale. PAIN EVALUATION 04/09/2024 1345 04/16/2024 1308 Pain Level: 3 6 Pain Location: Hand-Left Hand-Left Description: Shooting Sharp;Stabbing Duration Amount of Time: 2 2 Duration Units: Hours Months Frequency: Intermittent Intermittent Intervention/Comfort measure: Medication;Massage -- Comments: Pain is not present all the time. It has calmed down a lot since this first started. -- PAST MEDICAL HISTORY Past medical, surgical, family, and social histories have been reviewed and updated with the patient today and are located elsewhere in the medical record. Diabetes:Yes ALLERGIES ALLERGIES Allergen Reactions Aspirin Shortness of Breath Lisinopril Swelling Latex Rash Penicillins Hives, Rash Sulfamethoxazole Hives Trileptal [Oxcarbaz* Other: See Comments Balance Problems after taking for a few days PHYSICAL EXAMINATION Resp 20 Ht 154.9 cm (5' 1) Wt 67.1 kg (148 lb) BMI 27.96 kg/m Body mass index is 27.96 kg/m . General Appearance: Well appearing, alert, in no acute distress, well-hydrated, well nourished. Psyche: she is alert and oriented and cooperative to our examination. Neuro: she alert and oriented times: 3. Normal affect times: 3. Gait and station: normal. Pulmonary: she has non labored breathing. There is no evidence of cyanosis. There is no clubbing of fingernails. she has no pursed lips. Head: Normocephalic and atraumatic Neck: Supple with no JVD Lymph: There is no palpable epitrochlear Musculoskeletal- Left Hand/Wrist/Upper Extremity Exam: Skin: There is mild swelling of left thumb CMC joint. No ecchymosis. There are no skin lacerations or abrasions. Inspection: There is no ulnar drift of the fingers. There is no intrinsic muscular atrophy. There is a + shoulder sign over the thumb CMC joint. There is no dorsal subluxation of the ulnar head. Cardiovascular: <3 sec capillary refill, +2 radial pulse palpated. Tenderness to palpation: Over left thumb CMC joint. Mild TTP noted to left index finger MCP joint. ROM: Able to make fist. No active or passive triggering of index finger or thumb noted. Sensation: Normal sensation Atrophy: None Special tests: - Thumb CMC grind: Positive - Snuffbox tenderness: Negative REVIEW OF STUDIES DATE OF EXAM: Mar 29 2024 2:39PM [id number] - XR HAND 3V PA/LAT/OBL LT / PROCEDURE REASON: Left hand pain * * * * Physician Interpretation * * * * HISTORY: 79-YEAR-OLD FEMALE WITH Left hand pain . LT hand pain about a month ago that is better now, per pt. Pt states no specific injury TECHNIQUE: XR WRIST 3V PA/LAT/OBL LT, XR HAND 3V PA/LAT/OBL LT Laterality: LEFT Number of different views (projections): 3 COMPARISON: None RESULT: Left wrist and left hand: Narrowing at triscaphe joint. The trapezoid scaphoid articulation. Marked narrowing of the first CMC joint with osteophytes and lateral subluxation of the first metacarpal at the joint. The remaining carpal bones, intercarpal joint spaces and carpal alignment are normal. No fracture. No erosions. Degenerative changes of the IP joint of the thumb and mild asymmetric narrowing at DIP joint of the second third digit. The second digit is held in a slightly flexed position throughout the examination the MCP joint. No fracture. No erosions. IMPRESSION IMPRESSION: DEGENERATIVE CHANGES OF FIRST CMC JOINT AND. Can Machine Operator: ISADORA Transcribe Date/Time: Mar 31 2024 4:01P Dictated by : YASMEEN HAGEN MD This examination was interpreted and the report reviewed and electronically signed by: YASMEEN HAGEN MD on Mar 31 2024 4:04PM EST ASSESSMENT AND PLAN 1. Arthritis of carpometacarpal (CMC) joint of left thumb - ICD9: 716.94, ICD10: M18.12 (primary diagnosis) - CONSULT TO OCCUPATIONAL THERAPY/HAND THERAPY (AG) 2. Arthritis of xoanjubp-eenbsuisw-gtmbgzgrb joint of left hand - ICD9: 716.93, ICD10: M19.032 - CONSULT TO OCCUPATIONAL THERAPY/HAND THERAPY (AG) 3. 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 -We discussed splinting versus steroid injection at length today. After discussion, patient would like to begin with splinting. -OT order placed today for patient to obtain thumb CMC MetaGrip splint to wear at her discretion. -Continue Biofreeze and Aspercreme as needed -Ice/elevate as needed -NSAIDs/Tylenol as needed -Patient will let us know if and when she becomes ready for steroid injection. Follow up as needed - Patient instructed to call office with questions or concerns. This note was generated via [employer] voice dictation and may contain errors related to that system such as spelling, grammar, punctuation, gender, words, and phrases that may be inappropriate. All reasonable efforts were made to correct dictation errors, however, they still may occur given the software used. DIANA Jenkins PA-C [facility] documented in this encounter [facility] 04-11-2024 Instructions Betty Bueno MD - 04/11/2024 2:13 PM EST THE DASH DIFFERENCE High blood pressure affects 50 million Americans and is one of the leading causes or heart diseased and stroke. The eating plan shown below, from the Dietary Approaches to Stop Hypertension (DASH) study, is good news for those affected by or at risk for high blood pressure. As reported in the [place] Journal of Medicine, the DASH diet, which is low in fat and rich in low-fat milk, cheese and yogurt, fruits and vegetables, lowered blood pressure in individuals with both normal and elevated blood pressure. The use of foods lower in sodium made a slight improvement in blood pressure beyond what occurred with the low-fat dairy products, fruits and vegetables. The study was based on a 2000 calorie diet and contained the number of servings from each of the food groups shown in the chart below. For many people following the DASH eating plan can be an important and easy step in preventing or managing high blood pressure. The DASH Eating Style FOOD GROUP DAILY SERVINGS 1 SERVING EQUALS Milk and Dairy 2-3 8 oz low-fat milk 1 cup low-fat 1 oz low-fat cheese Fruits 4-5 1 medium fruit cup dried fruit cup frozen or canned fruit 6 oz fruit juice Vegetables 4-5 1 cup raw leafy vegetables cup cooked vegetables 6 oz vegetable juice Grain 7-8 1 slice bread cup dry or hot cereal cup cooked rice or pasta Meat, fish, Poultry 2 or less 3 oz cooked meat, poultry, or fish Nuts, Seeds, Dried Beans 4-5 per week 1/3 cup nuts 2 tbsp seeds cup cooked dried beans Sample DASH Menu Breakfast 1 cup corn flakes (with 1 tsp sugar) 8 oz low-fat milk 1 banana 1 slice whole wheat toast 1 tbsp jelly grapefruit Lunch 2 oz sliced turkey 1 lindsey bread 1 tbsp low-fat mayonnaise cup fruit cocktail in light syrup Raw vegetable medley with: 3-4 sticks of each carrot and celery 2 radishes 2 loose leaf lettuce leaves Snack cup dried apricots cup mini pretzels 1/3 cup mixed nuts 1 cup flavored low-fat yogurt Dinner 3 oz grilled lean beef 1 cup scallion rice 1 cup steamed broccoli 8 oz low-fat chocolate milk Spinach salad with cup raw spinach 2 mcbride tomatoes 2 cucumber slices 10 Ways to DASH Up Your Dining 1.) Re-think your drink! Make low-fat milk your beverage of choice: order it when dining out. 2.) Pizza, Pizza, Pizza! Combine a pre-made pizza crust with pizza sauce, shredded low-fat mozzarella and lots of vegetable toppings - fresh tomatoes, zucchini, spinach, carrot curls, cauliflower, broccoli and artichoke hearts - for a totally awesome creation. 3.) Start Your Day with whole grain cereal and low-fat milk. 4.) Make it with Milk! Use low-fat milk in place of water when cooking, especially with oatmeal, boxed rice and pasta dishes 5.) For That Snack Attack: Serve cereal with low-fat milk and fresh fruit. For a tangy twist, layer flavored low-fat yogurt with cereal to create yogurt sundaes. 6.) Make Super Soup! Prepare soup with low-fat milk instead of water. Add fresh, canned or frozen vegetables to prepared soups. 7.) Shake em Up! Create powder blender and pourer drinks. Start with a cup of low-fat milk, add frozen fruit chunks and flavoring to make your own smoothie drink. 8.) Creat a Baked Potato Bar! Serve baked potatoes with a variety of toppings like low-fat cheese, chili, refried beans, salsa or broccoli. Add them up - one meal could contain three or four vegetable servings! 9.) Encourage Big Dippers! Make a fruit dip by sprinkling cinnamon into vanilla low-fat yogurt. For a quick vegetable dip, add ranch seasoning or chopped chives to plain low-fat yogurt. 10.) Say Cheese! Top Steamed vegetables with shredded low-fat cheese. documented in this encounter [facility] 04-11-2024 History of Present illness Narrative Images from the original note were not included. Betty Bueno M.D. [facility] [address] [place] [address] [facility] / [address] [place], [place] [address] Visit Date: April 11, 2024 Name: Akila De Los Santos Date of : 1945 MRN/E #: [id number] Chief Complaint: No chief complaint on file. Subjective Akila De Los Santos is a 79 year old female here with the following complaint(s): The history is provided by the patient. Hypertension This is a chronic problem. The problem is uncontrolled. Associated symptoms include blurred vision and malaise/fatigue (minimal; improved.). Pertinent negatives include no anxiety, chest pain, headaches, palpitations, peripheral edema or shortness of breath. There are no associated agents to hypertension. 140s-150s/60s at home. Doing well with diet. BGTs- 1-teens- 121. A1c- 7 today Hand doctor on Tuesday. Pain comes and goes. X-ray reviewed. OA. Mild persistent asthma: Doing well w/ new inhaler. No difference from Breo. SOB on occasion. 4-5x in last 2 months. Tremor Fine. Not dropping things. Dialing on phone. Writing an issue. Prevagen. Thinking about it. Forgetting whether did something or not. Or people's names. Hemoglobin A1C (%) Date Value 01/09/2024 7.5 12/16/2022 7.6 03/23/2022 8.4 Hemoglobin A1C (POCT) (%) Date Value 04/11/2024 7.0 10/24/2023 7.8 05/30/2023 7.3 07/26/2022 7.7 08/28/2021 7.1 Review of Systems Constitutional: Positive for malaise/fatigue (minimal; improved.). Eyes: Positive for blurred vision. Respiratory: Negative for shortness of breath. Cardiovascular: Negative for chest pain and palpitations. Neurological: Negative for headaches. Social History Tobacco Use Smoking status: Former Types: Cigarettes Smokeless tobacco: Never Vaping Use Vaping status: Never Used Substance Use Topics Alcohol use: Never Drug use: Never ALLERGIES Allergen Reactions Aspirin Shortness of Breath Lisinopril Swelling Latex Rash Penicillins Hives, Rash Sulfamethoxazole Hives Trileptal [Oxcarbaz* Other: See Comments Balance Problems after taking for a few days Current Outpatient Medications Medication Sig fluticasone-salmeterol (WIXELA INHUB) 500-50 mcg/dose dsdv Inhale 1 Puff as instructed two times a day. montelukast (SINGULAIR) 10 mg tablet TAKE 1 TABLET BY MOUTH ONCE DAILY AT BEDTIME albuterol (PROVENTIL) 2.5 mg /3 mL (0.083 %) nebulizer solution Use 3 mL via nebulizer every 4 hours as needed for wheezing/shortness of breath. albuterol HFA (VENTOLIN HFA) 90 mcg/actuation inhaler Inhale 2 Puffs as instructed every 4 hours as needed for wheezing/shortness of breath. blood sugar diagnostic (ACCU-CHEK KAYCEE PLUS TEST STRP) test strip Use as instructed to check blood sugar once daily as needed. Lancets (ACCU-CHEK SOFTCLIX LANCETS) USE DIRECTED 1 ONCE DAILY NEEDED potassium chloride 20 mEq TbER Take 2 tablets by mouth twice daily traMADol (ULTRAM) 50 mg tablet Take 1 tablet by mouth at bedtime as needed for pain for up to 90 days. Patient should start on March 10, 2024. primidone (MYSOLINE) 50 mg tablet TAKE 1 TABLET BY MOUTH ONCE DAILY AT BEDTIME pregabalin (LYRICA) 50 mg capsule Take one pill three times per day citalopram (CELEXA) 20 mg tablet Take 1 tablet by mouth once daily rosuvastatin (CRESTOR) 10 mg tablet take 1 tablet by mouth once daily at bedtime solifenacin (VESICARE) 5 mg tablet Take 1 tablet by mouth once daily valACYclovir (VALTREX) 1 gram tablet Take 1 tablet by mouth once daily indapamide (LOZOL) 2.5 mg tablet Take 1 tablet by mouth once daily. amLODIPine (NORVASC) 10 mg tablet Take 1 tablet by mouth once daily. ascorbic acid, vitamin C, (VITAMIN C) 500 mg tablet 1 tab(s) orally once a day for 30 day(s) betamethasone dipropionate 0.05 % ointment Apply to affected area twice daily. losartan (COZAAR) 100 mg tablet Take 1 tablet by mouth once daily. No current facility-administered medications for this visit. I have confirmed and edited as necessary the chief complaint, medications, past medical, family and social histories. Objective 04/11/24 1324 04/11/24 1412 BP: 155/69 144/60 Pulse: 63 Temp: 36 C (96.8 F) Weight: 148 lb (67.1 kg) Height: 5' 1 (1.549 m) Body mass index is 27.96 kg/m . Physical Exam Vitals and nursing note reviewed. Constitutional: General: She is not in acute distress. HENT: Head: Normocephalic and atraumatic. Right Ear: External ear normal. Left Ear: External ear normal. Nose: Nose normal. Mouth/Throat: Pharynx: No oropharyngeal exudate. Eyes: General: No scleral icterus. Conjunctiva/sclera: Conjunctivae normal. Pupils: Pupils are equal, round, and reactive to light. Cardiovascular: Rate and Rhythm: Normal rate and regular rhythm. Heart sounds: Normal heart sounds. No murmur heard. No friction rub. No gallop. Pulmonary: Effort: Pulmonary effort is normal. No respiratory distress. Breath sounds: Normal breath sounds. No wheezing or rales. Abdominal: General: Bowel sounds are normal. There is no distension. Palpations: Abdomen is soft. Tenderness: There is no abdominal tenderness. There is no guarding or rebound. Musculoskeletal: General: No tenderness or deformity. Normal range of motion. Skin: General: Skin is warm and dry. Coloration: Skin is not pale. Findings: No erythema or rash. Neurological: Mental Status: She is alert. Psychiatric: Mood and Affect: Affect normal. Min-cog- 5/5 Results for orders placed or performed in visit on 04/11/24 HEMOGLOBIN A1C (POC) Result Value Ref Range Hemoglobin A1C (POCT) 7.0 (A) 4.3 - 5.6 % Assessment / Plan Diagnoses and all orders for this visit: Primary hypertension - losartan (COZAAR) 100 mg tablet; Take 1 tablet by mouth once daily. Type 2 diabetes mellitus with peripheral neuropathy (HCC) - HGBA1C B/O Impaired memory - CONSULT TO GERIATRICS; Future Other orders - HEMOGLOBIN A1C (POC) ASSESSMENT/PLAN: 1. Primary hypertension - ICD9: 401.9, ICD10: I10 (primary diagnosis) - Uncontrolled - Increase losartan - Recommend home blood pressure monitoring, to bring results to next visit - Encouraged sodium restriction, DASH or Mediterranean diet - Recommend regular aerobic exercise - LOSARTAN 100 MG TABLET 2. Type 2 diabetes mellitus with peripheral neuropathy (HCC) - ICD9: 250.60, 357.2, ICD10: E11.42 - Controlled - Continue current medications - Counseled on healthy diet and regular exercise - HGBA1C B/O 3. Impaired memory - ICD9: 780.93, ICD10: R41.3 - CONSULT TO GERIATRICS Betty Bueno MD Return in about 3 months (around 07/10/2024). Discussed the above with the patient using shared decision-making. The patient is in agreement with the diagnostic and treatment plans. Provider: Betty Bueno MD Date: April 11, 2024 Time: 12:49 PM documented in this encounter [facility] 04-11-2024 Note HNO ID: [id number] Author: BETTY BUENO MD Service: ? Author Type: Physician Type: Progress Notes Filed: 04/15/2024 17:44 Note Text: Betty Bueno M.D. [facility] [address] [place] [address] [facility] [facility] / [address] [place] [address] Visit Date: April 11, 2024 Name: Akila De Los Santos Date of : 1945 MRN/E #: [id number] Chief Complaint: No chief complaint on file. Subjective Akila De Los Santos is a 79 year old female here with the following complaint(s): The history is provided by the patient. Hypertension This is a chronic problem. The problem is uncontrolled. Associated symptoms include blurred vision and malaise/fatigue (minimal; improved.). Pertinent negatives include no anxiety, chest pain, headaches, palpitations, peripheral edema or shortness of breath. There are no associated agents to hypertension. 140s-150s/60s at home. Doing well with diet. BGTs- 1-teens- 121. A1c- 7 today Hand doctor on Tuesday. Pain comes and goes. X-ray reviewed. OA. Mild persistent asthma: Doing well w/ new inhaler. No difference from Breo. SOB on occasion. 4-5x in last 2 months. Tremor Fine. Not dropping things. Dialing on phone. Writing an issue. Pre[employer]agen. Thinking about it. Forgetting whether did something or not. Or people's names. Hemoglobin A1C (%) Date Value 01/09/2024 7.5 12/16/2022 7.6 03/23/2022 8.4 Hemoglobin A1C (POCT) (%) Date Value 04/11/2024 7.0 10/24/2023 7.8 05/30/2023 7.3 07/26/2022 7.7 08/28/2021 7.1 Review of Systems Constitutional: Positive for malaise/fatigue (minimal; improved.). Eyes: Positive for blurred vision. Respiratory: Negative for shortness of breath. Cardiovascular: Negative for chest pain and palpitations. Neurological: Negative for headaches. Social History Tobacco Use Smoking status: Former Types: Cigarettes Smokeless tobacco: Never Vaping Use Vaping status: Never Used Substance Use Topics Alcohol use: Never Drug use: Never ALLERGIES Allergen Reactions Aspirin Shortness of Breath Lisinopril Swelling Latex Rash Penicillins Hives, Rash Sulfamethoxazole Hives Trileptal [Oxcarbaz* Other: See Comments Balance Problems after taking for a few days Current Outpatient Medications Medication Sig fluticasone-salmeterol (WIXELA INHUB) 500-50 mcg/dose dsdv Inhale 1 Puff as instructed two times a day. montelukast (SINGULAIR) 10 mg tablet TAKE 1 TABLET BY MOUTH ONCE DAILY AT BEDTIME albuterol (PROVENTIL) 2.5 mg /3 mL (0.083 %) nebulizer solution Use 3 mL via nebulizer every 4 hours as needed for wheezing/shortness of breath. albuterol HFA (VENTOLIN HFA) 90 mcg/actuation inhaler Inhale 2 Puffs as instructed every 4 hours as needed for wheezing/shortness of breath. blood sugar diagnostic (ACCU-CHEK KAYCEE PLUS TEST STRP) test strip Use as instructed to check blood sugar once daily as needed. Lancets (ACCU-CHEK SOFTCLIX LANCETS) USE DIRECTED 1 ONCE DAILY NEEDED potassium chloride 20 mEq TbER Take 2 tablets by mouth twice daily traMADol (ULTRAM) 50 mg tablet Take 1 tablet by mouth at bedtime as needed for pain for up to 90 days. Patient should start on March 10, 2024. primidone (MYSOLINE) 50 mg tablet TAKE 1 TABLET BY MOUTH ONCE DAILY AT BEDTIME pregabalin (LYRICA) 50 mg capsule Take one pill three times per day citalopram (CELEXA) 20 mg tablet Take 1 tablet by mouth once daily rosuvastatin (CRESTOR) 10 mg tablet take 1 tablet by mouth once daily at bedtime solifenacin (VESICARE) 5 mg tablet Take 1 tablet by mouth once daily valACYclovir (VALTREX) 1 gram tablet Take 1 tablet by mouth once daily indapamide (LOZOL) 2.5 mg tablet Take 1 tablet by mouth once daily. amLODIPine (NORVASC) 10 mg tablet Take 1 tablet by mouth once daily. ascorbic acid, vitamin C, (VITAMIN C) 500 mg tablet 1 tab(s) orally once a day for 30 day(s) betamethasone dipropionate 0.05 % ointment Apply to affected area twice daily. losartan (COZAAR) 100 mg tablet Take 1 tablet by mouth once daily. No current facility-administered medications for this visit. I have confirmed and edited as necessary the chief complaint, medications, past medical, family and social histories. Objective 04/11/24 1324 04/11/24 1412 BP: 155/69 144/60 Pulse: 63 Temp: 36 ?C (96.8 ?F) Weight: 148 lb (67.1 kg) Height: 5' 1 (1.549 m) Body mass index is 27.96 kg/m?. Physical Exam Vitals and nursing note reviewed. Constitutional: General: She is not in acute distress. HENT: Head: Normocephalic and atraumatic. Right Ear: External ear normal. Left Ear: External ear normal. Nose: Nose normal. Mouth/Throat: Pharynx: No oropharyngeal exudate. Eyes: General: No scleral icterus. Conjunctiva/sclera: Conjunctivae normal. Pupils: Pupils are equal, round, and reactive to light. Cardiovascular: Rate and Rhythm: Normal rat (more content not included)... [facility] 03-13-2024 Telephone encounter Note Resent. NHM [facility] 03-13-2024 Miscellaneous Notes Resent. NHM Nilam called for medication clarification on the Albuterol. Pharmacist states the Albuterol sent in needs to be mixed with saline if this is not what provider wants please send in new script for one of the following: Albuterol 0.63% per 3ml or Albuterol 0.083% per 3ml. Please advise. Jessica Martinez LPN documented in this encounter [facility] 03-13-2024 Telephone encounter Note Nilam called for medication clarification on the Albuterol. Pharmacist states the Albuterol sent in needs to be mixed with saline if this is not what provider wants please send in new script for one of the following: Albuterol 0.63% per 3ml or Albuterol 0.083% per 3ml. Please advise. Jessica Martinez LPN [facility] 03-09-2024 Telephone encounter Note Please review and complete. Form will be placed in your in box.Thank you [facility] 03-09-2024 Miscellaneous Notes Please review and complete. Form will be placed in your in box.Thank you documented in this encounter [facility] 03-05-2024 Instructions Ashley Fleming APRN.CNP - 03/05/2024 1:53 PM EST Ice and heat as tolerated Activity as tolerated Patient verbalizes understanding of home going instructions and is in agreement documented in this encounter [facility] 03-05-2024 History of Present illness Narrative Images from the original note were not included. [facility] Today's Date: 03/05/2024 Name: Akila De Los Santos : 1945 Purpose: Follow-up Patient Evaluation - This is an established patient, returning today for continued evaluation and management of the chief complaint noted below Chief complaint: lumbar pain Pertinent Past Medical History: asthma, DM2, PAD, TIA Pertinent Past Surgeries: No spine Plan at last visit: (Seen on 01/02/24 by Ashley Fleming CNP) Medications: Requested Prescriptions Pending Prescriptions Disp Refills traMADol (ULTRAM) 50 mg tablet 30 tablet 1 Sig: Take 1 tablet by mouth at bedtime as needed for pain for up to 60 days. Patient should start on January 10, 2024. pregabalin (LYRICA) 50 mg capsule 90 capsule 5 Sig: Take one pill three times per day Patient should start on January 24, 2024. Interventional Procedures: None Studies: URINE DRUG SCREEN (IN OFFICE TODAY) NAOIC Depending on response to the above plan, consider: Repeat SI Joint injection; ; SI Joint RFA (prefers to avoid RFA at this time); MBB/RFA C spine or L-spine; Repeat Caudal Epidural Steroid Injection Interval History: Overall pain and functional disability since last visit: Better New Complaints since last visit: No Today she reports left iliac crest stabbing pain - denies radicular sx. Today she states her back is better. Denies LOC of bowel and bladder, no saddle anesthesia, no BLE weakness, no recent falls. She ambulates with a cane. She states the Lyrica has resolved her nerve pain. She tolerates both the Tramadol and Lyrica without side effects. The medication allow her to function daily and she feels she would not be able to perform her ADL's without the medication. Denies LOC of bowel and bladder, no saddle anesthesia, no BLE weakness, no recent falls. Current Pain Medications: Neuropathics: Lyrica NSAIDS: Muscle Relaxants: Topicals: Other Prescription or OTC Pain Medications: Opioids (when applicable): Tramadol MEDICATION NAME Tramadol STRENGTH 50 LAST FILL DATE 02/11/2024 DATE LAST DOSE TAKEN 03/03/2024 (Evening) QUANTITY FILLED 30 QUANTITY REMAINING 6 Urine Drug Screen Questionnaire URINE DRUG SCREEN Completed Date 03/05/2024 Anti-depressants or Mood-Stabilizers: Celexa Anti-Coagulants: None Therapies Attended (Current or Most Recent): No Current Therapies 09/10/2022 01/21/2023 04/04/2023 07/18/2023 10/10/2023 01/02/2024 03/05/2024 AG SPINE COMBINATION Questionnaire URINE DRUG SCREEN URINE DRUG SCREEN URINE DRUG SCREEN URINE DRUG SCREEN URINE DRUG SCREEN URINE DRUG SCREEN URINE DRUG SCREEN Completed Date 09/10/2022 01/21/2023 04/04/2023 07/18/2023 10/10/2023 01/02/2024 03/05/2024 Questionnaire NA/OIC NA/OIC NA/OIC NA/OIC Completed Date 09/10/2022 01/21/2023 07/18/2023 01/02/2024 Comments Monitored Medication Agreement - signed Questionnaire Opiod Risk Tool Completed Date 04/04/2023 MEDICATION NAME Tramadol STRENGTH 50 LAST FILL DATE 02/11/2024 DATE LAST DOSE TAKEN 03/03/2024 (Evening) QUANTITY FILLED 30 QUANTITY REMAINING 6 Urine Drug Screen Questionnaire URINE DRUG SCREEN Completed Date 03/05/2024 (All drug screens are appropriate unless indicated otherwise) Notable Events During Course of Treatment: N/A Treatment History: PAIN PROCEDURES: DATE PROCEDURE IMPROVEMENT 11/16/23 Caudal 50-80% 08/09/2022 Bilat SI Joint 85% (01/21/2023 ) 02/01/2022 Caudal CHAZ 70% x 7 months 11/26/2021 Bilat SI Joint 85% x nearly 6 months 04/07/2021 Bilat SI Joint 90% x 6 months Data Reviewed Today: Allergies: ALLERGIES Allergen Reactions Aspirin Shortness of Breath Lisinopril Swelling Latex Rash Penicillins Hives, Rash Sulfamethoxazole Hives Trileptal [Oxcarbaz* Other: See Comments Balance Problems after taking for a few days Social History Tobacco Use Smoking status: Former Types: Cigarettes Smokeless tobacco: Never Vaping Use Vaping status: Never Used Substance Use Topics Alcohol use: Never Drug use: Never 01/02/2024 03/01/2024 INTAKE PAIN ASSESSMENT Are you having pain associated with your visit today? Yes, Provider notified Yes, Provider notified Pain Scales Verbal (Numeric Rating or Visual Analog Scale) Verbal (Numeric Rating or Visual Analog Scale) Pain Level 1 2 Pain Location Thigh-Left Back-Lower Description Aching Aching;Sore Duration Units Years Months Frequency Continuous Intermittent Intervention/Comfort measure Medication;Heat;Pillow support Comments The pain is not constant. When I try to take a walk or if I've been on my feet a lot I seem to get the pain more. Compliance: PDMP website checked and validated on 03/05/2024 by Ashley Fleming APRN.MULTIPLE SLIDE OPERATOR All prescriptions have been APPROPRIATELY filled. No suspicious activity was identified. 09/10/2022 01/21/2023 04/04/2023 07/18/2023 10/10/2023 01/02/2024 03/05/2024 AG SPINE COMBINATION Questionnaire URINE DRUG SCREEN URINE DRUG SCREEN URINE DRUG SCREEN URINE DRUG SCREEN URINE DRUG SCREEN URINE DRUG SCREEN URINE DRUG SCREEN Completed Date 09/10/2022 01/21/2023 04/04/2023 07/18/2023 10/10/2023 01/02/2024 03/05/2024 Questionnaire NA/OIC NA/OIC NA/OIC NA/OIC Completed Date 09/10/2022 01/21/2023 07/18/2023 01/02/2024 Comments Monitored Medication Agreement - signed Questionnaire Opiod Risk Tool Completed Date 04/04/2023 (All drug screens are appropriate unless indicated otherwise) Risk Assessment: ISA-7: 11/19/2022 01/02/2024 ISA - 7 SCORES Score 0 1 (0-4) minimal anxiety, (5-9) mild anxiety, (10-14) moderate anxiety, (15-21) severe anxiety PHQ-9: 04/08/2021 02/15/2022 01/02/2024 PHQ-9 Score 0 3 1 (0-4) minimal depression, (5-9) mild depression, (10-14) moderate depression, (15-19) moderately severe depression, (20-27) severe depression Diagnostic Studies: Relevant Imaging: MRI Spine Report MRI CERVICAL SPINE WO IVCON Exam End: 08/25/2022 3:08 PM (Final result) Narrative: * * *Final Report* * * DATE OF EXAM: Aug 25 2022 3:08PM Cynthia Chris - MRI CERVICAL SPINE WO IVCON / PROCEDURE REASON: multiple diagnoses * * * * Physician Interpretation * * * * EXAMINATION: MRI CERVICAL SPINE WO IVCON CLINICAL HISTORY: Spondylolysis of cervical region. Spinal stenosis of cervical region . TECHNIQUE: Routine cervical spine MR protocol without gadolinium. MQ: [id number] COMPARISON: Cervical spine radiographs 07/30/2022 RESULT: Counting reference: Craniocervical junction. Anatomic Variants: None. Localizer images: No additional findings. Alignment: There is straightening of normal cervical lordosis due to spondylolisthesis. There is mild retrolisthesis of C3 on C4 and C6 on C7. Craniocervical junction: Craniocervical junction is normal. Cord: The visualized cord is within normal limits of signal intensity and morphology. Bone marrow signal/fracture: No evidence of pathologic marrow infiltration. No evidence of prior fracture. There is moderate disc space height loss at C5-C6 and C6-C7. There are Modic type II degenerative endplate changes at C5-C6 and C6-C7 with vertebral body osteophyte formation. Cervical soft tissues: The paraspinal soft tissues are within normal limits. C2-C3: Canal and foramina are patent. C3-C4: Disc osteophyte complex effaces the ventral CSF contacting the ventral cord and along with ligamentum flavum thickening causes moderate stenosis of the spinal canal. There is severe left and moderate right neural foraminal narrowing due to uncovertebral and facet joint degenerative change. C4-C5: Disc osteophyte complex causes mild narrowing of the spinal canal. There is severe narrowing of both neural foramina due to uncovertebral arthropathy. C5-C6: Disc osteophyte complex impresses on the ventral thecal sac but without narrowing of the spinal canal. There is severe left and moderate right neural foraminal narrowing due to uncovertebral arthropathy. C6-C7: Disc osteophyte complex impresses on the ventral thecal sac with minimal narrowing of the spinal canal. There is severe left and moderate right neural foraminal narrowing due to uncovertebral arthropathy. C7-T1: Canal and foramina are patent. Impression: IMPRESSION: 1. Multilevel degenerative cervical spondylosis with straightening of cervical lordosis. 2. At C3-C4 there is moderate stenosis of the spinal canal and severe left neural foraminal stenosis. 3. There is multilevel high-grade neural foraminal stenosis as detailed. Anatomic Variant: None. Assume 7 cervical vertebrae with counting from the craniocervical junction. Can Machine Operator: [facility] Transcribe Date/Time: Aug 26 2022 3:21P Dictated by : TREVOR MELÉNDEZ MD This examination was interpreted and the report reviewed and electronically signed by: TREVOR MELÉNDEZ MD on Aug 26 2022 3:32PM EST Electrodiagnostic Study (EMG): None Recent Labs: Creatinine Date Value Ref Range Status 01/09/2024 0.85 0.58 - 0.96 mg/dL Final No results found for: EGFR Glucose, Point of Care Date Value Ref Range Status 11/16/2023 125 (A) 74 - 99 mg/dL Final Comment: Location:[facility], [address] [place] [address], [facility] The Accu-Chek Inform II glucose meter has not been approved for testing on patients receiving intensive medical intervention or therapy and results from this point of care glucose test should not be used for patient management decisions in these cases. Inaccurate results may also occur from other interfering factors, such as N-acetylcysteine (blood concentrations of greater than 5mg/dL), galactose, extremes of hematocrit (<10 or >65), or high doses of ascorbic acid (vitamin C) greater than 3mg/dL. Consider alternate testing mechanisms (e.g. core lab, blood gas instrument) in the above situations. Current Medications, Past Medical History, Past Surgical History, Family History, Social History and Review of Systems: On today's date, noted above, I have confirmed and edited as necessary, the PFSH and ROS obtained by others. Physical Exam: 03/05/24 1339 Pulse: (!) 59 Resp: 16 SpO2: 99% Physical Exam Constitutional: Appearance: Normal appearance. HENT: Head: Normocephalic. Right Ear: External ear normal. Left Ear: External ear normal. Eyes: Extraocular Movements: Extraocular movements intact. Cardiovascular: Pulses: Normal pulses. Pulmonary: Effort: Pulmonary effort is normal. Musculoskeletal: BLE strength 4/5 and symmetrical BLE sensation intact and symmetrical BLE patellar reflexes intact difficult to elicit Lumbar ROM deferred 2/2 balance issues Ambulates with a cane Tenderness over left iliac crest Skin: General: Skin is warm and dry. Capillary Refill: Capillary refill takes 2 to 3 seconds. Neurological: General: No focal deficit present. Mental Status: He is alert and oriented to person, place, and time. Psychiatric: Mood and Affect: Mood normal. Behavior: Behavior normal. IMPRESSION: 79 year old female presents with with significant past medical history for low back decompressive surgeries x 3, scoliosis, who presents with complaint(s) of ongoing axial low back pain, lower limb radicular symptoms due to spinal stenosis. She continues to have relief from the caudal epidural she received 11/16/23. She is stable on her medication therefore I will have her follow up in 3 month intervals as traveling to appointments can be challenging. Patient is being treated for the conditions noted above, who presents today for medication refill. Refill without adjustments were provided after verifying the history noted above, performing a focused physical examination, and reviewing available compliance data including (where available) the PDMP/OARRS system, pill counts, toxicology screens. Some elements of my note were copied from 01/02/24, which have been updated where appropriate and reflect my current medical decision making for today at 03/05/2024 OPIOID ASSESSMENT: No signs of abuse, no adverse events noted, patient experiences significant benefit of analgesia, and patient demonstrates increased activity while on these medications. Alternatives to opioid therapy have been discussed. The patient has demonstrated functional improvement and is on the minimum dose which maintains that improvement. The patient has been evaluated for risks of opioid related harms, including using a standardized tool (ORT) for evaluation of the risk of addiction. Risks of opioid therapy have been discussed, including potential for addiction and risk of overdose and risks to others who may obtain access to the patient's medications. The patient understands that opioid therapy will be tapered to lower dosages or discontinued if benefits do not outweigh the risks of treatment. Need for opioids was evaluated today and will be reassessed at next office visit in 30-90 days. Diagnoses: (Z79.891) Encounter for long-term use of opiate analgesic (primary encounter diagnosis) (M54.16) Lumbar radiculopathy (M96.1) Post laminectomy syndrome PLAN: Akila De Los Santos would benefit from the following to reach personal goals for decreasing pain, improving function and work participation, and/or improving quality of life: Medications: Requested Prescriptions Signed Prescriptions Disp Refills traMADol (ULTRAM) 50 mg tablet 30 tablet 2 Sig: Take 1 tablet by mouth at bedtime as needed for pain for up to 90 days. Patient should start on March 10, 2024. pregabalin (LYRICA) 50 mg capsule 90 capsule 5 Sig: Take one pill three times per day Interventional Procedures: None Studies: URINE DRUG SCREEN (IN OFFICE TODAY) AMALIA Functional Restorationism: NONE Referrals: No additional considerations at present Follow-up:Keep appointment with Dr Esposito in April Depending on response to the above plan, consider: Repeat caudal or SIJ prn Patient Education, Compliance and Clinic Policies Reviewed and/or Discussed Today: Monitored medication Informed Consent (AMALIA): MONITORED MEDICATION INFORMED CONSENT (AMALIA) The AMALIA was reviewed and signed by the patient. The patient was given opportunity to ask questions. A copy was given to the patient for their records. PDMP was reviewed and was consistent with the history. The patient and I discussed the nature of this opioid medication and its side effects. We discussed the potential need to wean from this medication. We discussed safety issues, including safe storage - lost or stolen medications will not be replaced and will be considered a violation of the agreement. We discussed the fact that the patient should use caution driving an automobile or operate heavy machinery while taking this medication. We discussed that the patient should consume alcohol in moderation while taking this medication. We discussed that the patient would need to be seen in person at least once every 180 days. We discussed that violations of the AMALIA will result in discontinuation of medication, to be tapered where medically necessary. We also discussed that we reserve the right to discontinue monitored medications at any time, based upon clinical judgment. Date Last Signed: 03/05/2024 Attribution: In addition to reviewing the information noted above, some elements copied from my most recent clinical note(s), including the physical exam (completed in entirety today), and the impression and plan sections, have been updated where appropriate. All reflect current medical decision making from today's date. Ashley Fleming APRN.[facility] Review of Systems Constitutional: Negative for activity change, chills, fever and unexpected weight change. Genitourinary: Negative for difficulty urinating. Musculoskeletal: Positive for arthralgias, back pain, joint swelling and myalgias. Negative for gait problem, neck pain and neck stiffness. Neurological: Negative for weakness, numbness and headaches. Psychiatric/Behavioral: Negative for dysphoric mood, sleep disturbance and suicidal ideas. The patient is not nervous/anxious. documented in this encounter [facility] 03-05-2024 Note HNO ID: [id number] Author: ASHLEY FLEMING APRN.NELY Service: ? Author Type: Nurse Practitioner Type: Progress Notes Filed: 03/05/2024 14:02 Note Text: [facility] [place] [facility] Today's Date: 03/05/2024 Name: Akila De Los Santos : 1945 Purpose: Follow-up Patient Evaluation - This is an established patient, returning today for continued evaluation and management of the chief complaint noted below Chief complaint: lumbar pain Pertinent Past Medical History: asthma, DM2, PAD, TIA Pertinent Past Surgeries: No spine Plan at last visit: (Seen on 01/02/24 by Ashley Fleming CNP) Medications: Requested Prescriptions Pending Prescriptions Disp Refills traMADol (ULTRAM) 50 mg tablet 30 tablet 1 Sig: Take 1 tablet by mouth at bedtime as needed for pain for up to 60 days. Patient should start on January 10, 2024. pregabalin (LYRICA) 50 mg capsule 90 capsule 5 Sig: Take one pill three times per day Patient should start on January 24, 2024. Interventional Procedures: None Studies: URINE DRUG SCREEN (IN OFFICE TODAY) NAOIC Depending on response to the above plan, consider: Repeat SI Joint injection; ; SI Joint RFA (prefers to avoid RFA at this time); MBB/RFA C spine or L-spine; Repeat Caudal Epidural Steroid Injection Interval History: Overall pain and functional disability since last visit: Better New Complaints since last visit: No Today she reports left iliac crest stabbing pain - denies radicular sx. Today she states her back is better. Denies LOC of bowel and bladder, no saddle anesthesia, no BLE weakness, no recent falls. She ambulates with a cane. She states the Lyrica has resolved her nerve pain. She tolerates both the Tramadol and Lyrica without side effects. The medication allow her to function daily and she feels she would not be able to perform her ADL's without the medication. Denies LOC of bowel and bladder, no saddle anesthesia, no BLE weakness, no recent falls. Current Pain Medications: Neuropathics: Lyrica NSAIDS: Muscle Relaxants: Topicals: Other Prescription or OTC Pain Medications: Opioids (when applicable): Tramadol MEDICATION NAME Tramadol STRENGTH 50 LAST FILL DATE 02/11/2024 DATE LAST DOSE TAKEN 03/03/2024 (Evening) QUANTITY FILLED 30 QUANTITY REMAINING 6 Urine Drug Screen Questionnaire URINE DRUG SCREEN Completed Date 03/05/2024 Anti-depressants or Mood-Stabilizers: Celexa Anti-Coagulants: None Therapies Attended (Current or Most Recent): No Current Therapies 09/10/2022 01/21/2023 04/04/2023 07/18/2023 10/10/2023 01/02/2024 03/05/2024 AG SPINE COMBINATION Questionnaire URINE DRUG SCREEN URINE DRUG SCREEN URINE DRUG SCREEN URINE DRUG SCREEN URINE DRUG SCREEN URINE DRUG SCREEN URINE DRUG SCREEN Completed Date 09/10/2022 01/21/2023 04/04/2023 07/18/2023 10/10/2023 01/02/2024 03/05/2024 Questionnaire NA/OIC NA/OIC NA/OIC NA/OIC Completed Date 09/10/2022 01/21/2023 07/18/2023 01/02/2024 Comments Monitored Medication Agreement - signed Questionnaire Opiod Risk Tool Completed Date 04/04/2023 MEDICATION NAME Tramadol STRENGTH 50 LAST FILL DATE 02/11/2024 DATE LAST DOSE TAKEN 03/03/2024 (Evening) QUANTITY FILLED 30 QUANTITY REMAINING 6 Urine Drug Screen Questionnaire URINE DRUG SCREEN Completed Date 03/05/2024 (All drug screens are appropriate unless indicated otherwise) Notable Events During Course of Treatment: N/A Treatment History: PAIN PROCEDURES: DATE PROCEDURE IMPROVEMENT 11/16/23 Caudal 50-80% 08/09/2022 Bilat SI Joint 85% (01/21/2023 ) 02/01/2022 Caudal CHAZ 70% x 7 months 11/26/2021 Bilat SI Joint 85% x nearly 6 months 04/07/2021 Bilat SI Joint 90% x 6 months Data Reviewed Today: Allergies: ALLERGIES Allergen Reactions Aspirin Shortness of Breath Lisinopril Swelling Latex Rash Penicillins Hives, Rash Sulfamethoxazole Hives Trileptal [Oxcarbaz* Other: See Comments Balance Problems after taking for a few days Social History Tobacco Use Smoking status: Former Types: Cigarettes Smokeless tobacco: Never Vaping Use Vaping status: Never Used Substance Use Topics Alcohol use: Never Drug use: Never 01/02/2024 03/01/2024 INTAKE PAIN ASSESSMENT Are you having pain associated with your visit today? Yes, Provider notified Yes, Provider notified Pain Scales Verbal (Numeric Rating or Visual Analog Scale) Verbal (Numeric Rating or Visual Analog Scale) Pain Level 1 2 Pain Location Thigh-Left Back-Lower Description Aching Aching;Sore Duration Units Years Months Frequency Continuous Intermittent Intervention/Comfort measure Medication;Heat;Pillow support Comments The pain is not constant. When I try to take a walk or if I've been on my feet a lot I seem to get the pain more. Compliance: PDMP website checked (more content not included)... [facility] 03-05-2024 Note HNO ID: [id number] Author: ANA MARIA AVILA MA Service: ? Author Type: Boat Garnisher Type: Progress Notes Filed: 03/05/2024 14:02 Note Text: Review of Systems Constitutional: Negative for activity change, chills, fever and unexpected weight change. Genitourinary: Negative for difficulty urinating. Musculoskeletal: Positive for arthralgias, back pain, joint swelling and myalgias. Negative for gait problem, neck pain and neck stiffness. Neurological: Negative for weakness, numbness and headaches. Psychiatric/Behavioral: Negative for dysphoric mood, sleep disturbance and suicidal ideas. The patient is not nervous/anxious. [facility] 01-27-2024 Telephone encounter Note Pharmacy faxed requesting the following refill Refill(s) Requested: Requested Prescriptions Pending Prescriptions Disp Refills citalopram (CELEXA) 20 mg tablet [Pharmacy Med Name: Citalopram Hydrobromide 20 MG Oral Tablet] 90 tablet 0 Sig: Take 1 tablet by mouth once daily ALLERGIES Allergen Reactions Aspirin Shortness of Breath Lisinopril Swelling Latex Rash Penicillins Hives, Rash Sulfamethoxazole Hives Trileptal [Oxcarbaz* Other: See Comments Balance Problems after taking for a few days (home) [phone] (cell) Last Office Visit Date: 01/02/2024 Last Distance Health Visit: Visit date not found Future Appointment: 04/11/2024 The patients preferred pharmacy has been captured for this encounter? yes Request is for script(s) to be escript to pharmacy. Christiano Sims MA [facility] 01-27-2024 Miscellaneous Notes Pharmacy faxed requesting the following refill Refill(s) Requested: Requested Prescriptions Pending Prescriptions Disp Refills citalopram (CELEXA) 20 mg tablet [Pharmacy Med Name: Citalopram Hydrobromide 20 MG Oral Tablet] 90 tablet 0 Sig: Take 1 tablet by mouth once daily ALLERGIES Allergen Reactions Aspirin Shortness of Breath Lisinopril Swelling Latex Rash Penicillins Hives, Rash Sulfamethoxazole Hives Trileptal [Oxcarbaz* Other: See Comments Balance Problems after taking for a few days (home) [phone] (cell) Last Office Visit Date: 01/02/2024 Last Distance Health Visit: Visit date not found Future Appointment: 04/11/2024 The patients preferred pharmacy has been captured for this encounter? yes Request is for script(s) to be escript to pharmacy. Christiano Sims MA documented in this encounter [facility] 01-20-2024 History of Present illness Narrative Assessment/Plan: 1. Type 2 diabetes mellitus with peripheral neuropathy (HCC) Patient educated on today's exam findings, importance of tight glucose control, and the importance of continued follow up with primary care physician and/or automotive electrician; monitor at complete exam. Diabetes Eye Care Management: -- no diabetic retinopathy on dilated examination OU -- absence of CSDME OU - CONSULT TO OPHTHALMOLOGY 2. Hypertension, unspecified type Patient educated on exam findings; discussed importance of strict blood pressure control and to continue care with PCP as directed. Monitor complete exam. 3. Pseudophakia Stable findings. Monitor. 4. Dry eye syndrome of both eyes Patient educated on exam findings; recommended artificial tears up to QID OU, educated patient on use. Instructed patient to RTC prn if symptoms worsen, otherwise monitor complete exam. 5. Posterior vitreous detachment, bilateral Patient educated on exam findings and condition. RTC stat with sudden shower of floaters, flashes, or black curtain coming down/over vision OU. Monitor 6. Refractive error Educated patient on exam findings; new glasses prescription released to patient. Discussed glasses rx is able to improve vision OU and recommend she get a PAL to help with her distance and near. Pt agrees, had a PAL prior to cataract surgery. Monitor complete exam. Sherin Monroy, JAZMYN RTC 12/2024 Diabetic complete documented in this encounter [facility] 01-02-2024 History of Present illness Narrative See note above PRIMARY CARE SOCIAL WORK PROGRESS NOTE Provider Action / FYI PCP Action Housing / food pantries SERVICE DATE: January 02, 2024 SERVICE TIME: (Patient has been identified by name and date of ) REASON FOR CONTACT: Community Resources Mode of Outreach: face to face Progress Note: Warm hand-off from Dr Bueno to discuss housing options. [facility] and patient moved to office to make outcalls to her building to verify if [employer] vouchers were accepted- no reply ( message left) and to [facility] to verify eligibility. It was discovered that there are market rate apartments ([facility] by [facility]). Patient agreed to visit building to be placed on wait list. Food was discussed. Due to elevated income unable to access [employer] Food pantry. Provided list of pantries and meal sites in community 01/03/24: Due to credit card debt: discussed non profit counseling agencies located in [place]: [employer] in [place] and [employer] [facility] [employer] in [place]. https://fivesquids.co.uk.org/program/cons bjom-kgjlbw-jzeplwlcxy-services/ INTERVENTION: Food Resources - Both Internal and External Resources Housing - External Resource Time Spent:: 45 minutes SIGNATURE: CHARLI Louise PATIENT NAME: Akila De Los Santos DATE: January 02, 2024 TIME: 5:06 PM CONTACT #: [phone] documented in this encounter [facility] 01-02-2024 Nurse Note Patient assessment done with a timed up and go test. Timed up & Go was completed by patient in 10 seconds. Nurse did not observe any gait or postural instabilities at this time. Lakia Sutherland LPN Patient assessment done with a timed up and go test. [facility] 01-02-2024 Nurse Note Patient assessment done with a timed up and go test. Timed up & Go was completed by patient in 10 seconds. Nurse did not observe any gait or postural instabilities at this time. Lakia Sutherland LPN Patient assessment done with a timed up and go test. documented in this encounter [facility] 01-02-2024 History of Present illness Narrative Images from the original note were not included. Akila De Los Santos is a 78 year old female here for a Medicare wellness visit. Medicare Health Risk Assessment General Health [place] Exercise: Minutes/Day 30 min30 Exercise: Days/Week 1 day1-2 Alcohol: Daily Use Neverno Alcohol: Drinks/Day Patient does not drinkno Alcohol: 6 or more drinks Neverno Feel off balance Nono Concerns: Teeth/Dentures Nono Concerns: Sexual function no Troubled by feelings None of the aboveno Frequency: Eating healthy diet Nearly every daydaily ADLs requiring help None of the aboveReaching up high or stooping. Safety precautions in home/vehicle Yes Smoke, vape, chews tobacco Nono Difficulty hearing Nono Difficulty seeing Nono Current Providers Specialists: I have reviewed specialist-related care of the patient in the medical record. Medical/Family history review Reviewed and updated problem list, medical/surgical/family/social history, medications, and allergies. Opioid use review Opioid Medications (last 90 days) 12/13/2023 23:59 01/10/2024 00:00 Opioid Medications tramadol HCl 50 mg AT BEDTIME PRN ORAL -Rx End tramadol HCl 50 mg AT BEDTIME PRN ORAL Details Outpatient prescription Anxiety/Depression screening PHQ-9 Score: 1 (Minimal Depression) ISA-7 Score: 1 (Minimal Anxiety) Recommendation: no further intervention at this time Cognitive screening Mini Cog Score: 5 Cognitive screening reviewed and No further action needed (score 3-5). Functional Observation Was the patient's Timed Up & Go test unsteady or >= 12 seconds? No Advance Care Planning Surrogate decision maker and/or advance care plan documented R shoulder pain: doing home PT on own 3 back surgeries. In [place]. FM: HTN (mom, a-fib and mom's dad), asthma dad ([place]), brother w/ quadruple bypass). No cancers. Arsenic concern: having/had none of sxs Provider described. Stopped drinking the contaminated apple juice. No interested in further testing. Measurements BP 116/68 Pulse (!) 59 Temp 36.2 C (97.1 F) Ht 5' 1 (1.549 m) Wt 148 lb 12.8 oz (67.5 kg) BMI 28.12 kg/m Vision Screening: Right: 20/40 Left: 20/ 25 Both: 20/25 Assessment/Plan Medicare annual wellness visit, subsequent (Z00.00) - Counseled on healthy diet and regular exercise - Fall avoidance information provided - Personalized prevention plan provided ASSESSMENT/PLAN: 1. Medicare annual wellness visit, subsequent - ICD9: V70.0, ICD10: Z00.00 (primary diagnosis) - Counseled on healthy diet and regular exercise - Follow up for annual exam in one year - ADVANCE CARE PLAN DISCUSSION - CONSULT TO CLOTH DOUBLING MACHINE OPERATOR (AG IMCA/CFM ONLY) 2. Type 2 diabetes mellitus 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) - ICD9: 250.00, ICD10: E11.9 - Controlled - Continue current medications - LIPID PANEL BASIC - COMPREHENSIVE METABOLIC PANEL - COMPLETE BLOOD COUNT AND DIFFERENTIAL - HEMOGLOBIN A1C Hemoglobin A1C (%) Date Value 01/09/2024 7.5 12/16/2022 7.6 03/23/2022 8.4 Hemoglobin A1C (POCT) (%) Date Value 10/24/2023 7.8 05/30/2023 7.3 07/26/2022 7.7 08/28/2021 7.1 02/13/2021 6.2 3. Encounter for immunization - ICD9: V03.89, ICD10: Z23 - flu shot 4. Need for influenza vaccination - ICD9: V04.81, ICD10: Z23 - INFLUENZA VACCINE, PRSV FREE, AGE 65+ YR, HIGH DOSE, TRIVALENT (FLUZONE HIGH-DOSE) Betty Bueno MD documented in this encounter [facility] 01-02-2024 Instructions Betty Bueno MD - 01/02/2024 1:05 PM EDT Screening schedule The following prevention plan is recommended: Advance Directive Discussion due on 04/25/2023 Dilated Retinal Exam due on 09/16/2023 Covid-19 Vaccine( season) due on 12/25/2023 LDL Cholesterol due on 12/17/2023 Influenza Vaccine(1) due on 12/25/2023 WHAT YOU CAN DO TO PREVENT FALLS Many falls can be prevented. By making some changes, you can lower your chances of falling. Four things YOU can do to prevent falls for you* and your caregiver 1. Begin a regular exercise program Exercise is one of the most important ways to lower your chances of falling. It makes you stronger and helps you feel better. Exercises that improve balance and coordination (like Dave Chi) are the most helpful. Lack of exercise leads to weakness and increases your chances of falling. Ask your doctor or health care provider about the best type of exercise program for you. 2. Have your health care provider review your medicines Have your doctor or pharmacist review all the medicines you take, even tpkj-oet-rhrksti medicines. As you get older, the way medicines work in your body can change. Some medicines, or combinations of medicines, can make you sleepy or dizzy and can cause you to fall. 3. Have your vision checked Have your eyes checked by an eye doctor at least once a year. You may be wearing the wrong glasses or have a condition like glaucoma or cataracts that limits your vision. Poor vision can increase your chances of falling. 4. Make your home safer About half of all falls happen at home. To make your home safer: Remove things you can trip over (like papers, books, clothes, and shoes) from stairs and places where you walk. Remove small throw rugs or use double-sided tape to keep the rugs from slipping. Keep items you use often in cabinets you can reach easily without using a step stool. Have grab bars put in next to your toilet and in the tub or shower. Use non-slip mats in the bathtub and on shower floors. Improve the lighting in your home. As you get older, you need brighter lights to see well. Hang light-weight curtains or shades to reduce glare. Have handrails and lights put in on all staircases. Wear shoes both inside and outside the house. Avoid going barefoot or wearing slippers. For more information, contact: Centers for Disease Control and Prevention www.cdc.gov/injury * This information may not apply if you have certain medical conditions. documented in this encounter [facility] 01-02-2024 History of Present illness Narrative Images from the original note were not included. [facility] [place] [facility] Today's Date:01/02/24 Name: Akila De Los Santos : 1945 Purpose: Follow-up Patient Evaluation - This is an established patient, returning today for continued evaluation and management of the chief complaint noted below Chief complaint: lumbar pain Pertinent Past Medical History: asthma, DM2, PAD, TIA Pertinent Past Surgeries: No spine Plan at last visit: (Seen on 07/13/23 by Ashley Fleming CNP) Interventional Procedure(s): none Medications: Lyrica 50mg TID - continue Tramadol 50mg, #45/qmonthly - she states not taking daily- she will call when she needs a refill. Functional Restorationism: NONE Depending on response to the above plan, consider: Repeat SI Joint injection; ; SI Joint RFA (prefers to avoid RFA at this time); MBB/RFA C spine or L-spine; Repeat Caudal Epidural Steroid Injection Interval History: Overall pain and functional disability since last visit: Better New Complaints since last visit: No Today she states her back is better. Denies LOC of bowel and bladder, no saddle anesthesia, no BLE weakness, no recent falls. She ambulates with a cane. She states the Lyrica has resolved her nerve pain. She tolerates both the Tramadol and Lyrica without side effects. The medication allow her to function daily and she feels she would not be able to perform her ADL's without the medication. Denies LOC of bowel and bladder, no saddle anesthesia, no BLE weakness, no recent falls. Current Pain Medications: Neuropathics: Lyrica NSAIDS: Muscle Relaxants: Topicals: Other Prescription or OTC Pain Medications: Opioids (when applicable): Tramadol MEDICATION NAME Tramadol STRENGTH 50 LAST FILL DATE 11/29/2023 DATE LAST DOSE TAKEN 12/31/23 QUANTITY FILLED 30 QUANTITY REMAINING 8 Urine Drug Screen Questionnaire URINE DRUG SCREEN Completed Date 01/02/2024 NA/OIC Questionnaire NA/OIC Completed Date 01/02/2024 Anti-depressants or Mood-Stabilizers: Celexa Anti-Coagulants: None Therapies Attended (Current or Most Recent): No Current Therapies 07/09/2022 09/10/2022 01/21/2023 04/04/2023 07/18/2023 10/10/2023 01/02/2024 AG SPINE COMBINATION Questionnaire URINE DRUG SCREEN URINE DRUG SCREEN URINE DRUG SCREEN URINE DRUG SCREEN URINE DRUG SCREEN URINE DRUG SCREEN URINE DRUG SCREEN Completed Date 07/09/2022 09/10/2022 01/21/2023 04/04/2023 07/18/2023 10/10/2023 01/02/2024 Questionnaire NA/OIC NA/OIC NA/OIC NA/OIC Completed Date 09/10/2022 01/21/2023 07/18/2023 01/02/2024 Comments Monitored Medication Agreement - signed Questionnaire Opiod Risk Tool Completed Date 04/04/2023 MEDICATION NAME Tramadol STRENGTH 50 LAST FILL DATE 11/29/2023 DATE LAST DOSE TAKEN 12/31/23 QUANTITY FILLED 30 QUANTITY REMAINING 8 Urine Drug Screen Questionnaire URINE DRUG SCREEN Completed Date 01/02/2024 NA/OIC Questionnaire NA/OIC Completed Date 01/02/2024 (All drug screens are appropriate unless indicated otherwise) Notable Events During Course of Treatment: N/A Treatment History: PAIN PROCEDURES: DATE PROCEDURE IMPROVEMENT 11/16/23 Caudal 50-80% 08/09/2022 Bilat SI Joint 85% (01/21/2023 ) 02/01/2022 Caudal CHAZ 70% x 7 months 11/26/2021 Bilat SI Joint 85% x nearly 6 months 04/07/2021 Bilat SI Joint 90% x 6 months Data Reviewed Today: Allergies: ALLERGIES Allergen Reactions Aspirin Shortness of Breath Lisinopril Swelling Latex Rash Penicillins Hives, Rash Sulfamethoxazole Hives Trileptal [Oxcarbaz* Other: See Comments Balance Problems after taking for a few days Social History Tobacco Use Smoking status: Former Types: Cigarettes Smokeless tobacco: Never Vaping Use Vaping status: Never Used Substance Use Topics Alcohol use: Never Drug use: Never 11/25/2023 01/01/2024 INTAKE PAIN ASSESSMENT Are you having pain associated with your visit today? Yes, Provider notified No Yes, Provider notified Pain Scales Verbal (Numeric Rating or Visual Analog Scale) Pain Level 4 1 Pain Location Back-Lower Back-Lower Description Aching;Stabbing Aching Duration Amount of Time 24 Duration Units Hours Years Frequency Continuous Continuous Intervention/Comfort measure Medication;Relaxation;Heat Medication;Reposition;Relaxation;H eat Comments I get some relief with Biofreeze or Aspercreme. Compliance: PDMP website checked and validated on 01/02/2024 by Ashley Fleming APRN.MULTIPLE SLIDE OPERATOR All prescriptions have been APPROPRIATELY filled. No suspicious activity was identified. 07/09/2022 09/10/2022 01/21/2023 04/04/2023 07/18/2023 10/10/2023 01/02/2024 AG SPINE COMBINATION Questionnaire URINE DRUG SCREEN URINE DRUG SCREEN URINE DRUG SCREEN URINE DRUG SCREEN URINE DRUG SCREEN URINE DRUG SCREEN URINE DRUG SCREEN Completed Date 07/09/2022 09/10/2022 01/21/2023 04/04/2023 07/18/2023 10/10/2023 01/02/2024 Questionnaire NA/OIC NA/OIC NA/OIC NA/OIC Completed Date 09/10/2022 01/21/2023 07/18/2023 01/02/2024 Comments Monitored Medication Agreement - signed Questionnaire Opiod Risk Tool Completed Date 04/04/2023 (All drug screens are appropriate unless indicated otherwise) Risk Assessment: ISA-7: 11/19/2022 ISA - 7 SCORES Score 0 (0-4) minimal anxiety, (5-9) mild anxiety, (10-14) moderate anxiety, (15-21) severe anxiety PHQ-9: 04/08/2021 02/15/2022 PHQ-9 Score 0 3 (0-4) minimal depression, (5-9) mild depression, (10-14) moderate depression, (15-19) moderately severe depression, (20-27) severe depression Diagnostic Studies: Relevant Imaging: MRI Spine Report MRI CERVICAL SPINE WO IVCON Exam End: 08/25/2022 3:08 PM (Final result) Narrative: * * *Final Report* * * DATE OF EXAM: Aug 25 2022 3:08PM [id number] - MRI CERVICAL SPINE WO IVCON / PROCEDURE REASON: multiple diagnoses * * * * Physician Interpretation * * * * EXAMINATION: MRI CERVICAL SPINE WO IVCON CLINICAL HISTORY: Spondylolysis of cervical region. Spinal stenosis of cervical region . TECHNIQUE: Routine cervical spine MR protocol without gadolinium. MQ: [id number] COMPARISON: Cervical spine radiographs 07/30/2022 RESULT: Counting reference: Craniocervical junction. Anatomic Variants: None. Localizer images: No additional findings. Alignment: There is straightening of normal cervical lordosis due to spondylolisthesis. There is mild retrolisthesis of C3 on C4 and C6 on C7. Craniocervical junction: Craniocervical junction is normal. Cord: The visualized cord is within normal limits of signal intensity and morphology. Bone marrow signal/fracture: No evidence of pathologic marrow infiltration. No evidence of prior fracture. There is moderate disc space height loss at C5-C6 and C6-C7. There are Modic type II degenerative endplate changes at C5-C6 and C6-C7 with vertebral body osteophyte formation. Cervical soft tissues: The paraspinal soft tissues are within normal limits. C2-C3: Canal and foramina are patent. C3-C4: Disc osteophyte complex effaces the ventral CSF contacting the ventral cord and along with ligamentum flavum thickening causes moderate stenosis of the spinal canal. There is severe left and moderate right neural foraminal narrowing due to uncovertebral and facet joint degenerative change. C4-C5: Disc osteophyte complex causes mild narrowing of the spinal canal. There is severe narrowing of both neural foramina due to uncovertebral arthropathy. C5-C6: Disc osteophyte complex impresses on the ventral thecal sac but without narrowing of the spinal canal. There is severe left and moderate right neural foraminal narrowing due to uncovertebral arthropathy. C6-C7: Disc osteophyte complex impresses on the ventral thecal sac with minimal narrowing of the spinal canal. There is severe left and moderate right neural foraminal narrowing due to uncovertebral arthropathy. C7-T1: Canal and foramina are patent. Impression: IMPRESSION: 1. Multilevel degenerative cervical spondylosis with straightening of cervical lordosis. 2. At C3-C4 there is moderate stenosis of the spinal canal and severe left neural foraminal stenosis. 3. There is multilevel high-grade neural foraminal stenosis as detailed. Anatomic Variant: None. Assume 7 cervical vertebrae with counting from the craniocervical junction. Can Machine Operator: ISADORA Transcribe Date/Time: Aug 26 2022 3:21P Dictated by : TREVOR MELÉNDEZ MD This examination was interpreted and the report reviewed and electronically signed by: TREVOR MELÉNDEZ MD on Aug 26 2022 3:32PM EST Electrodiagnostic Study (EMG): None Recent Labs: Creatinine Date Value Ref Range Status 02/23/2023 0.74 0.58 - 0.96 mg/dL Final No results found for: EGFR Glucose, Point of Care Date Value Ref Range Status 11/16/2023 125 (A) 74 - 99 mg/dL Final Comment: Location:[facility], [address] [place] [address], [facility] The Accu-Chek Inform II glucose meter has not been approved for testing on patients receiving intensive medical intervention or therapy and results from this point of care glucose test should not be used for patient management decisions in these cases. Inaccurate results may also occur from other interfering factors, such as N-acetylcysteine (blood concentrations of greater than 5mg/dL), galactose, extremes of hematocrit (<10 or >65), or high doses of ascorbic acid (vitamin C) greater than 3mg/dL. Consider alternate testing mechanisms (e.g. core lab, blood gas instrument) in the above situations. Current Medications, Past Medical History, Past Surgical History, Family History, Social History and Review of Systems: On today's date, noted above, I have confirmed and edited as necessary, the PFSH and ROS obtained by others. Physical Exam: 01/02/24 1128 Pulse: (!) 56 Resp: 16 SpO2: 99% Physical Exam Constitutional: Appearance: Normal appearance. HENT: Head: Normocephalic. Right Ear: External ear normal. Left Ear: External ear normal. Eyes: Extraocular Movements: Extraocular movements intact. Cardiovascular: Pulses: Normal pulses. Pulmonary: Effort: Pulmonary effort is normal. Musculoskeletal: BLE SLR negative- seated position BLE strength 5/5 and symmetrical BLE sensation intact and symmetrical BLE patellar reflexes intact difficult to elicit Tenderness across L1- C7 paraspinal musculature Skin: General: Skin is warm and dry. Capillary Refill: Capillary refill takes 2 to 3 seconds. Neurological: General: No focal deficit present. Mental Status: He is alert and oriented to person, place, and time. Psychiatric: Mood and Affect: Mood normal. Behavior: Behavior normal. IMPRESSION: 78 year old female presents with with significant past medical history for low back decompressive surgeries x 3, scoliosis, who presents with complaint(s) of ongoing axial low back pain, lower limb radicular symptoms due to spinal stenosis. Has been established with pain management in [place], just moved to [place]. Stable on very low doses of medication. Patient is being treated for the conditions noted above, who presents today for medication refill. Refill without adjustments were provided after verifying the history noted above, performing a focused physical examination, and reviewing available compliance data including (where available) the PDMP/OARRS system, pill counts, toxicology screens. Diagnoses: (Z79.891) Encounter for long-term use of opiate analgesic (primary encounter diagnosis) (M54.16) Lumbar radiculopathy (M96.1) Post laminectomy syndrome An opioid agreement was reviewed and signed with the patient. A copy was given to the patient. OARRS was reviewed and was consistent with the history. A drug screen pecimen was obtained for toxicology screening. Adequate analgesia, ADLS's maintained, no adverse effects, no aberrant behaviors noted The patient and I discussed the nature of this medication and its side effects. We discussed tolerance, physical dependence, psychological dependence, addiction and opioid-induced hyperalgesia. We discussed the need for safe storage of medication We discussed the potential need to wean from this medication. We discussed the availability of programs that can help with this process if necessary. We discussed safety issues related to opioids including safe storage. We discussed the fact that the patient should not drive an automobile or operate heavy machinery while taking this medication. Patient reports they are happy with current treatment care path. For this reason I will refill the patient's opioids today for 60 days. The patient continues to see benefit and improvement in their quality of life and ability to maintain ADLs. Patient advised that the medications may cause impairment of judgement while driving or operating machinery. We will re-evaluate the opiate regimen in 60 days at an office visit to determine efficacy of treatment to ensure that we are using the lowest dose for maximum benefit. Examined patient and confirmed feliz findings on history and examination and ROS as noted above. Some elements of my note were copied from 10/10/23 which have been updated where appropriate and reflect my current medical decision making for today at 01/02/24 PLAN: Akila De Los Santos would benefit from the following to reach personal goals for decreasing pain, improving function and work participation, and/or improving quality of life: Medications: Requested Prescriptions Pending Prescriptions Disp Refills traMADol (ULTRAM) 50 mg tablet 30 tablet 1 Sig: Take 1 tablet by mouth at bedtime as needed for pain for up to 60 days. Patient should start on January 10, 2024. pregabalin (LYRICA) 50 mg capsule 90 capsule 5 Sig: Take one pill three times per day Patient should start on January 24, 2024. Interventional Procedures: None Studies: URINE DRUG SCREEN (IN OFFICE TODAY) NAOIC Functional Restorationism: NONE Referrals: No additional considerations at present Follow-up: 2 months Depending on response to the above plan, consider: TBD Patient Education, Compliance and Clinic Policies Reviewed and/or Discussed Today: None Attribution: In addition to reviewing the information noted above, some elements copied from my most recent clinical note(s), including the physical exam (completed in entirety today), and the impression and plan sections, have been updated where appropriate. All reflect current medical decision making from today's date. Ashley Fleming APRN.MULTIPLE SLIDE OPERATOR Pain Management [facility] Review of Systems Constitutional: Positive for activity change. Negative for chills, fever and unexpected weight change. Genitourinary: Negative for difficulty urinating. Musculoskeletal: Positive for arthralgias, back pain, gait problem, joint swelling, myalgias, neck pain and neck stiffness. Neurological: Negative for weakness, numbness and headaches. Psychiatric/Behavioral: Positive for sleep disturbance. Negative for dysphoric mood and suicidal ideas. The patient is not nervous/anxious. documented in this encounter [facility] 12-30-2023 Instructions Ashley Fleming APRN.CNP - 12/30/2023 8:05 AM EDT Ice and heat as tolerated Activity as tolerated Patient verbalizes understanding of home going instructions and is in agreement documented in this encounter [facility] 12-02-2023 Instructions Ashley Fleming APRN.CNP - 12/02/2023 11:34 AM EDT Ice and heat as tolerated Activity as tolerated documented in this encounter [facility] 11-27-2023 History of Present illness Narrative Images from the original note were not included. VIRTUAL VISIT PROGRESS NOTE This is a virtual visit using [employer] Video Visit. It required patient-provider interaction for the medical decision making as documented below. I have communicated my name and active licensure. The patient's identity and physical location were verified at the time of this visit. Either the patient or their legal field representative has been informed of the risks and benefits of -- and alternatives to -- treatment through a remote evaluation and consents to proceed with the evaluation remotely. [facility] Today's Date: 12/02/23 Name: Akila De Los Santos : 1945 Purpose: Post-Procedure Evaluation (Telemedicine) Pertinent Past Medical History: asthma, DM2, PAD, TIA Pertinent Past Surgeries: No spine This is a virtual visit via Zoom, Phone and/or MyChart. It required patient-provider interaction for the medical decision making as documented below. Patient understands that privacy cannot be guaranteed. Note: Examination was limited today due to this being a virtual/telemedicine encounter Interval History: Overall pain and functional disability since last visit: Better New Complaints since last visit:no 11/16/23 Caudal Patient reports 50 % relief from procedure with pain score of 0/10 for since injection length of time. Patient reports improved quality of life and increase in ability to perform ADL's. She feels on the left side she continues to have some pain- the pain in her knee has resolved. She understands that she could continue to have relief up to 4 -6 weeks. Denies fever, chills or s/s infection. Current Pain Medications: Current Pain Medications: Neuropathics: Lyrica NSAIDS: Muscle Relaxants: Topicals: Other Prescription or OTC Pain Medications: Opioids (when applicable): Tramadol MEDICATION NAME Tramadol STRENGTH 50 LAST FILL DATE 09/14/2023 DATE LAST DOSE TAKEN 10/09/2023 (7pm) QUANTITY FILLED 23 QUANTITY REMAINING 5 Urine Drug Screen Questionnaire URINE DRUG SCREEN Completed Date 10/10/2023 Anti-depressants or Mood-Stabilizers: Celexa Anti-Coagulants: None Therapies Attended (Current or Most Recent): No Current Therapies 05/10/2022 07/09/2022 09/10/2022 01/21/2023 04/04/2023 07/18/2023 10/10/2023 AG SPINE COMBINATION Questionnaire URINE DRUG SCREEN URINE DRUG SCREEN URINE DRUG SCREEN URINE DRUG SCREEN URINE DRUG SCREEN URINE DRUG SCREEN URINE DRUG SCREEN Completed Date 05/10/2022 07/09/2022 09/10/2022 01/21/2023 04/04/2023 07/18/2023 10/10/2023 Comments phenobarbitol is a metobolite of her Rx Primidone, her UDS was appropriately postive for this Questionnaire NA/OIC NA/OIC NA/OIC Completed Date 09/10/2022 01/21/2023 07/18/2023 Comments Monitored Medication Agreement - signed Questionnaire Opiod Risk Tool Opiod Risk Tool Completed Date 05/10/2022 04/04/2023 Comments 3 No question data found. (All drug screens are appropriate unless indicated otherwise) Treatment History: PAIN PROCEDURES: DATE PROCEDURE IMPROVEMENT 11/16/23 Caudal 50% 08/09/2022 Bilat SI Joint 85% (01/21/2023 ) 02/01/2022 Caudal CHAZ 70% x 7 months 11/26/2021 Bilat SI Joint 85% x nearly 6 months 04/07/2021 Bilat SI Joint 90% x 6 months Data Reviewed Today: Allergies: ALLERGIES Allergen Reactions Aspirin Shortness of Breath Lisinopril Swelling Latex Rash Penicillins Hives, Rash Sulfamethoxazole Hives Trileptal [Oxcarbaz* Other: See Comments Balance Problems after taking for a few days Social History Tobacco Use Smoking status: Former Types: Cigarettes Smokeless tobacco: Never Vaping Use Vaping Use: Never used Substance Use Topics Alcohol use: Never Drug use: Never 11/10/2023 11/25/2023 INTAKE PAIN ASSESSMENT Are you having pain associated with your visit today? Yes, Provider notified Yes, Provider notified Pain Level 4 4 Pain Location Back-Lower Back-Lower Description Aching;Stabbing Duration Amount of Time 24 24 Duration Units Hours Hours Frequency Continuous Continuous Intervention/Comfort measure Medication;Relaxation;Heat;Pillow support;Positioning Medication;Relaxation;Heat Comments Goes down back and both legs. Pain in both knees I get some relief with Biofreeze or Aspercreme. Compliance: PDMP website checked and validated on 12/02/2023 by Ashley Fleming APRN.MULTIPLE SLIDE OPERATOR All prescriptions have been APPROPRIATELY filled. No suspicious activity was identified. Risk Assessment: ISA-7: 11/19/2022 ISA - 7 SCORES Score 0 (0-4) minimal anxiety, (5-9) mild anxiety, (10-14) moderate anxiety, (15-21) severe anxiety PHQ-9: 04/08/2021 02/15/2022 PHQ-9 Score 0 3 (0-4) minimal depression, (5-9) mild depression, (10-14) moderate depression, (15-19) moderately severe depression, (20-27) severe depression Diagnostic Studies: Relevant Imaging: MRI Spine Report MRI CERVICAL SPINE WO IVCON Exam End: 08/25/2022 3:08 PM (Final result) Narrative: * * *Final Report* * * DATE OF EXAM: Aug 25 2022 3:08PM Cynthia Santiago7 - MRI CERVICAL SPINE WO IVCON / PROCEDURE REASON: multiple diagnoses * * * * Physician Interpretation * * * * EXAMINATION: MRI CERVICAL SPINE WO IVCON CLINICAL HISTORY: Spondylolysis of cervical region. Spinal stenosis of cervical region . TECHNIQUE: Routine cervical spine MR protocol without gadolinium. MQ: [id number] COMPARISON: Cervical spine radiographs 07/30/2022 RESULT: Counting reference: Craniocervical junction. Anatomic Variants: None. Localizer images: No additional findings. Alignment: There is straightening of normal cervical lordosis due to spondylolisthesis. There is mild retrolisthesis of C3 on C4 and C6 on C7. Craniocervical junction: Craniocervical junction is normal. Cord: The visualized cord is within normal limits of signal intensity and morphology. Bone marrow signal/fracture: No evidence of pathologic marrow infiltration. No evidence of prior fracture. There is moderate disc space height loss at C5-C6 and C6-C7. There are Modic type II degenerative endplate changes at C5-C6 and C6-C7 with vertebral body osteophyte formation. Cervical soft tissues: The paraspinal soft tissues are within normal limits. C2-C3: Canal and foramina are patent. C3-C4: Disc osteophyte complex effaces the ventral CSF contacting the ventral cord and along with ligamentum flavum thickening causes moderate stenosis of the spinal canal. There is severe left and moderate right neural foraminal narrowing due to uncovertebral and facet joint degenerative change. C4-C5: Disc osteophyte complex causes mild narrowing of the spinal canal. There is severe narrowing of both neural foramina due to uncovertebral arthropathy. C5-C6: Disc osteophyte complex impresses on the ventral thecal sac but without narrowing of the spinal canal. There is severe left and moderate right neural foraminal narrowing due to uncovertebral arthropathy. C6-C7: Disc osteophyte complex impresses on the ventral thecal sac with minimal narrowing of the spinal canal. There is severe left and moderate right neural foraminal narrowing due to uncovertebral arthropathy. C7-T1: Canal and foramina are patent. Impression: IMPRESSION: 1. Multilevel degenerative cervical spondylosis with straightening of cervical lordosis. 2. At C3-C4 there is moderate stenosis of the spinal canal and severe left neural foraminal stenosis. 3. There is multilevel high-grade neural foraminal stenosis as detailed. Anatomic Variant: None. Assume 7 cervical vertebrae with counting from the craniocervical junction. Can Machine Operator: [facility] Transcribe Date/Time: Aug 26 2022 3:21P Dictated by : TREVOR MELÉNDEZ MD This examination was interpreted and the report reviewed and electronically signed by: TREVOR MELÉNDEZ MD on Aug 26 2022 3:32PM EST Electrodiagnostic Study (EMG): None Recent Labs: Creatinine Date Value Ref Range Status 02/23/2023 0.74 0.58 - 0.96 mg/dL Final No results found for: GFR Glucose, Point of Care Date Value Ref Range Status 11/16/2023 125 (A) 74 - 99 mg/dL Final Comment: Location:[facility], [address] [place] [address], [facility] The Accu-Chek Inform II glucose meter has not been approved for testing on patients receiving intensive medical intervention or therapy and results from this point of care glucose test should not be used for patient management decisions in these cases. Inaccurate results may also occur from other interfering factors, such as N-acetylcysteine (blood concentrations of greater than 5mg/dL), galactose, extremes of hematocrit (<10 or >65), or high doses of ascorbic acid (vitamin C) greater than 3mg/dL. Consider alternate testing mechanisms (e.g. core lab, blood gas instrument) in the above situations. Current Medications, Past Medical History, Past Surgical History, Family History & Social History: Reviewed on today's date. Review of Systems: Reviewed on today's date. Pertinent Positives: MSK - pain in the region being treated Neuro: no weakness or numbness in the region being treated Skin: Negative (No itching) Eyes: Negative (No blurred or double vision) Respiratory: Negative (No Cough, [id number], Dyspnea on exertion, wheezing) Cardiovascular: Negative (No Chest Pain, Tightness, Pressure, Palpitations) Gastrointestinal: Negative (No Abdominal pain, Nausea, Vomiting, Constipation, Diarrhea) Genitourinary: Negative (No dysuria) Hematologic: Negative (No bleeding, bruising) OB: is Denied or Not Applicable Endocrine: Negative (No hot/cold intolerance) Psychiatric: Negative (No depression, anxiety or suicidal ideation) Physical Exam: 11/27/23 1715 Weight: 68.9 kg (152 lb) Height: 154.9 cm (5' 1) VIDEO EXAM: (if completed, performed via video enabled technology) GENERAL: alert and appropriate, in no distress, well-hydrated, well nourished, and happy, smiling, interactive SKIN: no rash noted HEAD: normocephalic, no abnormality or lesion noted EYES: no injection and visual acuity is grossly normal EARS: hearing grossly normal NOSE: external nose normal without rhinorrhea NECK: full ROM, no cervical LNs noted BACK: ROM decreased because of pain EXTREMITIES: no issues NEUROLOGIC: no obvious deficit IMPRESSION: 78 year old female presents with complaint(s) of lumbar stenosis. 11/16/23 Caudal Patient reports 50 % relief from procedure with pain score of 0/10 for since injection length of time Diagnoses: (M54.16) Lumbar radiculopathy (primary encounter diagnosis) PLAN: Akila De Los Santos would benefit from the following to reach personal goals for decreasing pain, improving function and work participation, and/or improving quality of life: Medications: No Changes - Continue Current Medications Interventional Procedures: None Studies: None Functional Restorationism: NONE Referrals: No additional considerations at present Follow-up: 4 weeks for refill Depending on response to the above plan, consider: TBD Compliance and Clinic Policies Reviewed and/or Discussed Today: None Attribution: In addition to reviewing the information noted above, some elements copied from my most recent clinical note(s), including the physical exam (completed in entirety today), and the impression and plan sections, have been updated where appropriate. All reflect current medical decision making from today's date. Ashley Fleming APRN.CNP Pain Management [facility] documented in this encounter [facility] 11-16-2023 Nurse Note Order has been placed in the patient's chart with the following parameters for discharge from the physician: Patient is alert and oriented Vitals: Diastolic/Systolic +/- 20mmHg Respirations: 12-18 Pulse: 60-100 SpO2 is greater than or equal to 90% Patient has no nausea or vomiting Patient has no dizziness Pain level is +/- 2 from initial evaluation Dressing, dry and intact with no evidence of bleeding Criteria has been met, patient is okay to be discharged per the physician. Physician has gone in and evaluated the patient. Dressing dry and intact. No drainage noted. The patient denies nausea, numbness, tingling, weakness, shortness of breath, dizziness, or headache. Pain level 0/10. Vital signs within normal limits. Patient denied needing walked out by clinical staff and denied needing a wheelchair. Patient given discharge instructions and sent to transportation via ambulatory method. Patient left in good condition. [facility] 11-16-2023 Nurse Note Order has been placed in the patient's chart with the following parameters for discharge from the physician: Patient is alert and oriented Vitals: Diastolic/Systolic +/- 20mmHg Respirations: 12-18 Pulse: 60-100 SpO2 is greater than or equal to 90% Patient has no nausea or vomiting Patient has no dizziness Pain level is +/- 2 from initial evaluation Dressing, dry and intact with no evidence of bleeding Criteria has been met, patient is okay to be discharged per the physician. Physician has gone in and evaluated the patient. Dressing dry and intact. No drainage noted. The patient denies nausea, numbness, tingling, weakness, shortness of breath, dizziness, or headache. Pain level 0/10. Vital signs within normal limits. Patient denied needing walked out by clinical staff and denied needing a wheelchair. Patient given discharge instructions and sent to transportation via ambulatory method. Patient left in good condition. Procedure to be performed: Caudal Epidural Steroid Injection Patient was wheeled on stretcher from pre op bay to procedure room and assisted onto the procedure tablePatient s procedure was performed in an [facility] Procedure room. Pause completed at each level by provider to verify correct level and laterality placement Pressure was applied to patient s injection site(s) and bleeding was minimal. Patient had no complaint of shortness of breath, dizziness, headache, numbness, tingling, weakness or complications from procedure. Patient was assisted from the procedure table onto the stretcher and wheeled into a post op bay. Patient was advised a clinician will be to obtain another set of vitals. Time Out: 1000 Confirmed patient name, date of , procedure site, laterality, and allergies Procedure Start: 1003 Procedure End: 1011 [employer] Lead's Name: IONA SUNSHINE Are you on a blood thinner: N If yes, is a hold required: N Last dose of blood thinner: N INR Result today: N Do you require a Lovenox bridge:N Are you a diabetic:[id number] Are you/or could you be : N Are you taking Xanax for the procedure: YES Are you currently on a steroid? N Are you currently on an antibiotic: N Have you had a COVID-19 vaccine in the last 14 days Or are you scheduled to receive one? N documented in this encounter [facility] 11-16-2023 History of Present illness Narrative [facility] Date: 11/16/2023 Patient name: Akila De Los Santos Physician performing procedure: Bekah Cintron M.D., M.B.A. Diagnosis: (M96.1) Post laminectomy syndrome (primary encounter diagnosis) Procedure: Epidural Steroid Injection - Caudal Approach under fluoroscopic guidance Injectate: A total of 10 ml volume was injected The injectate consisted of: 1 ml of Depo-Medrol (40mg/ml), The remainder consisting of 0.5% Lidocaine Comments: Concordance Concordant pain was reproduced during administration of the injectate Improvement after today's procedure: as per nursing report HPI: Akila De Los Santos is an 78 year old FEMALE who presents today, in pain, for the procedure noted above. Review of Systems: Pertinent Positives: MSK: pain in the region being treated Neuro: weakness or numbness in the region being treated (unless otherwise noted) Skin: Negative (No itching) Eyes: Negative (No blurred or double vision) Respiratory: Negative (No Cough, Kkxalazrt-qh-yqciis, Dyspnea on exertion, wheezing) Cardiovascular: Negative (No Chest Pain, Tightness, Pressure, Palpitations) Gastrointestinal: Negative (No Abdominal pain, Nausea, Vomiting, Constipation, Diarrhea) Genitourinary: Negative (No dysuria) Hematologic: Negative (No bleeding, bruising) OB: is Denied or Not Applicable Endocrine: Negative (No hot/cold intolerance) Psychiatric: Negative (No depression, anxiety or suicidal ideation) PAST MEDICAL HISTORY Diagnosis Date Asthma Diabetes mellitus (HCC) DJD (degenerative joint disease) Osteoarthritis of multiple joints PAD (peripheral artery disease) (HCC) TIA (transient ischemic attack) PAST SURGICAL HISTORY Procedure Laterality Date CATARACT EXTRACTION HX Left 11/2016 CATARACT EXTRACTION HX Right 11/2018 TOTAL ABDOM HYSTERECTOMY FAMILY HISTORY Problem Relation Age of Onset Blindness Maternal Grandmother Social History Tobacco Use Smoking status: Former Types: Cigarettes Smokeless tobacco: Never Vaping Use Vaping Use: Never used Substance Use Topics Alcohol use: Never Drug use: Never Current Outpatient Medications on File Prior to Visit Medication Sig citalopram (CELEXA) 20 mg tablet Take 1 tablet by mouth once daily BREO ELLIPTA 200-25 mcg/dose inhaler Inhale 1 Inhalation as instructed once daily. [START ON 01/24/2024] pregabalin (LYRICA) 50 mg capsule Take one pill three times per day Do not start before January 24, 2024. traMADol (ULTRAM) 50 mg tablet Take 1 tablet by mouth at bedtime as needed for pain for up to 60 days. Do not start before October 14, 2023. solifenacin (VESICARE) 5 mg tablet Take 1 tablet by mouth once daily valACYclovir (VALTREX) 1 gram tablet Take 1 tablet by mouth once daily montelukast (SINGULAIR) 10 mg tablet take 1 tablet by mouth once daily at bedtime potassium chloride 20 mEq TbER Take 2 tablets by mouth twice daily primidone (MYSOLINE) 50 mg tablet take 1 tablet by mouth once daily at bedtime indapamide (LOZOL) 2.5 mg tablet Take 1 tablet by mouth once daily. amLODIPine (NORVASC) 10 mg tablet Take 1 tablet by mouth once daily. rosuvastatin (CRESTOR) 10 mg tablet take 1 tablet by mouth once daily at bedtime baclofen 5 mg tablet take 1 tablet by mouth three times daily losartan (COZAAR) 50 mg tablet Take 1 tablet by mouth once daily. Lancets (ACCU-CHEK SOFTCLIX LANCETS) lancets USE DIRECTED 1 ONCE DAILY NEEDED ascorbic acid, vitamin C, (VITAMIN C) 500 mg tablet 1 tab(s) orally once a day for 30 day(s) betamethasone dipropionate 0.05 % ointment Apply to affected area twice daily. blood sugar diagnostic (ACCU-CHEK KAYCEE PLUS TEST STRP) test strip Use as instructed to check blood sugar once daily as needed. albuterol HFA (VENTOLIN HFA) 90 mcg/actuation inhaler Inhale 2 Puffs as instructed every 4 hours as needed for wheezing/shortness of breath. No current facility-administered medications on file prior to visit. Objective Exam: Vitals: As per nursing documentation Constitutional: Normal Appearance, Oriented to Time, Place and Person Head: No lacerations, no external signs of trauma Eyes: Conjunctiva clear. No discharge from the eyes Cardiovascular: Appears well-perfused Pulmonary: Non-labored respirations Abdominal: Non-distended Skin: No visible rashes or ecchymosis Psychiatric: Mood appropriate for given condition Neurological: Gross movements are limited by pain, but otherwise unremarkable Data Reviewed: Nursing note and vitals reviewed. Additional imaging reviewed as appropriate Assessment and Plan: As noted above [place] protocol documentation / Pre-Procedure Checklist: Consent: Obtained in writing prior to procedure I had a nice discussion with the patient today about their current pain and the pathology that could be causing it We discussed different treatment options, including risks, benefits and alternatives. We agreed to proceed as previously discussed, or the plan was modified in accordance with the comments noted above Unless stated otherwise in the procedure note, the risks include but are not limited to infection, allergic reaction, increased pain, lack of therapeutic benefit, steroid reaction, nerve damage, paralysis, stroke, epidural hematoma, syncope, headache, respiratory or cardiac arrest, pneumothorax, and scar formation Once the plan was agreed upon, the patient gave written consent to proceed and was transported into the procedure room Surgical/Procedure pause or Time Out : Time Out was led by the physician in the procedure room, with the patient and all staff present and participating The following information was verified during the Time Out process: Patient name, patient date of , procedure site (marked), laterality, anticoagulants and allergies Procedure: The patient was prepped and draped in a sterile fashion in the prone position after informed consent was signed and all patient questions were answered including the risks, benefits, alternative treatment options, and prognosis. The risks are as mentioned above, with the exception of Pneumothorax. The coronae was localized with palpation and confirmed under fluoroscopic visualization. A 1.5inch, 25 gauge needle was inserted and a skin wheel was made. The needle was then advanced until contact was made with the periosteum. Two cc. of 1% Lidocaine without Epinephrine was injected into the periosteum. A 22 gauge, 3.5 inch needle was then advanced through the Sacrococcygeal ligament. Under lateral visualization, the needle was further advanced until contact was made with the posterior surface of the dorsal sacrum. The needle was then withdrawn slightly and aligned parallel to horizontal and advanced into the epidural space. Using AP visualization, the needle was advanced no further superior than the S3 level. Contrast was then injected as described above. Subsequently, the injectate was placed. Radiographs were obtained for documentation purposes. Please see the nursing note for exact times (time out, procedure start, procedure end). After careful removal of the needle, there was minimal bleeding. The injection site was covered with appropriate sterile dressing. The patient was noted to have tolerated the procedure well and was discharged after an appropriate period of post-procedure observation. The patient was instructed to contact us if there were any complications. The patient was advised to follow-up with the requesting physician within one to two weeks or as per their requested follow-up plan. Post procedure visit summary with written instructions was offered to the patient. Bekah Cintron MD [facility] Review of Systems Musculoskeletal: Positive for arthralgias, back pain, gait problem, joint swelling and neck stiffness. Neurological: Positive for weakness and numbness. Psychiatric/Behavioral: Positive for sleep disturbance. documented in this encounter [facility] 11-16-2023 Nurse Note Procedure to be performed: Caudal Epidural Steroid Injection Patient was wheeled on stretcher from pre op bay to procedure room and assisted onto the procedure tablePatient s procedure was performed in an [facility] Procedure room. Pause completed at each level by provider to verify correct level and laterality placement Pressure was applied to patient s injection site(s) and bleeding was minimal. Patient had no complaint of shortness of breath, dizziness, headache, numbness, tingling, weakness or complications from procedure. Patient was assisted from the procedure table onto the stretcher and wheeled into a post op bay. Patient was advised a clinician will be to obtain another set of vitals. Time Out: 1000 Confirmed patient name, date of , procedure site, laterality, and allergies Procedure Start: 1003 Procedure End: 1011 [facility] 11-16-2023 Nurse Note [employer] Lead's Name: IONA SUNSHINE Are you on a blood thinner: N If yes, is a hold required: N Last dose of blood thinner: N INR Result today: N Do you require a Lovenox bridge:N Are you a diabetic:[id number] Are you/or could you be : N Are you taking Xanax for the procedure: YES Are you currently on a steroid? N Are you currently on an antibiotic: N Have you had a COVID-19 vaccine in the last 14 days Or are you scheduled to receive one? N [facility] 11-16-2023 Instructions Abena Davidson LPN - 11/16/2023 8:23 AM EDT PROCEDURE DISCHARGE INSTRUCTIONS 11/16/2023 Akila De Los Santos 1945 Physician: Bekah Cintron MD Procedure: Epidural Steroid Injection: Lumbar (transforaminal/Interlaminar/Cauda l) Post Procedure Instructions: If sedation given, no driving the day of the procedure., Rest the day of the procedure., You may resume normal activities the day after the procedure, as tolerated., Pain should gradually subside over the next 2-3 weeks., Avoid movements that may aggravate pain., Apply cold compresses to injection site if needed., If medically acceptable, take over the counter anti-inflammatories such as ibuprofen or Aleve if needed for post procedure discomfort., and No hot baths, hot tubs or hot compresses for 24 hours. If you have any of the following signs or symptoms, please call our office at Fever and/or chills Swelling and/or drainage from injection site New pain that is different than your normal pain (other than soreness at the site of the procedure) Stiff neck Shortness of breath Severe increase in pain Motor dysfunctions, such as difficulty walking, bowel or bladder dysfunction and/or incontinence Headache that is severe, light sensitive or develops when changing positions (positional headache) Nausea and/or vomiting accompanied by headache that started 24-48 hours after the procedure If you have any emergent concerns, please call 911 or go to your local emergency room. Please also contact our office to let us know you will be seeking emergency care and why. documented in this encounter [facility] 10-25-2023 Telephone encounter Note OB to patient. Patient declined scheduling through referral, stated issue already addressed. [facility] 10-25-2023 Miscellaneous Notes OB to patient. Patient declined scheduling through referral, stated issue already addressed. documented in this encounter [facility] 10-24-2023 History of Present illness Narrative Images from the original note were not included. Betty Bueno M.D. [facility] [address] [facility] [employer] [facility] / [address] [place], [place] [address] Visit Date: October 24, 2023 Name: Akila De Los Santos Date of : 1945 MRN/E #: [id number] Chief Complaint: No chief complaint on file. Subjective Akila De Los Santos is a 78 year old female here with the following complaint(s): Diabetes - Patient reads her glucose at home once a week. She says they have been higher lately with her last reading at 161. She thinks her blood sugar is raising because she has been eating tropical trail mix every day. She also eats fruit such as oranges, apples, and grapes. Patient also states she drinks decaf coffee, apple juice, and iced tea. She says she drinks 2-3 bottles of water a day. She says she has spells throughout the day where she suddenly feels very tired. Patient states she has neuropathy and last felt numbness in her feet 2-3 weeks ago. She says she does not want to start medications for her blood sugars and wants to conitnue controlling it with diet. Hypertension - Patient is taking her medications everyday. She currently is measuring her blood pressure at home once a month because she states the read at home is much higher than what it measures at the doctor's office. She denies side effects. She says her diet is well balanced, limiting her salt intake. Back Pain - Patient takes tramadol and tylenol once a day. She says that the medications have helped her pain. She denies side effects but states her tramadol causes her to have a tremor in both hands. Knee - Patient says she has a fluid pocket build up on back of knee (lindsey cyst) for the last two months. She denies pain with it mainly but says it sometimes hurts at night. She puts a small pillow under her knee which helps. Patient saw Dr. Underwood at [facility] and got an x-ray and MRI done. Her x-ray showed that her knee is shifted to the right and she also has arthritis of the knee. She states the doctor is not going to do anything for the knee currently. He offered to do a cortisone injection but said it is not as strong. He wants to wait to further treat. Review of Systems Respiratory: Negative for cough, shortness of breath and wheezing. Cardiovascular: Negative for chest pain. Gastrointestinal: Negative. Endocrine: Negative for polydipsia, polyphagia and polyuria. Musculoskeletal: Positive for back pain and neck stiffness. Neurological: Negative for headaches. Social History Tobacco Use Smoking status: Former Types: Cigarettes Smokeless tobacco: Never Vaping Use Vaping Use: Never used Substance Use Topics Alcohol use: Never Drug use: Never ALLERGIES Allergen Reactions Aspirin Shortness of Breath Lisinopril Swelling Latex Rash Penicillins Hives, Rash Sulfamethoxazole Hives Trileptal [Oxcarbaz* Other: See Comments Balance Problems after taking for a few days Current Outpatient Medications Medication Sig [START ON 01/24/2024] pregabalin (LYRICA) 50 mg capsule Take one pill three times per day Do not start before January 24, 2024. traMADol (ULTRAM) 50 mg tablet Take 1 tablet by mouth at bedtime as needed for pain for up to 60 days. Do not start before October 14, 2023. solifenacin (VESICARE) 5 mg tablet Take 1 tablet by mouth once daily valACYclovir (VALTREX) 1 gram tablet Take 1 tablet by mouth once daily montelukast (SINGULAIR) 10 mg tablet take 1 tablet by mouth once daily at bedtime potassium chloride 20 mEq TbER Take 2 tablets by mouth twice daily primidone (MYSOLINE) 50 mg tablet take 1 tablet by mouth once daily at bedtime indapamide (LOZOL) 2.5 mg tablet Take 1 tablet by mouth once daily. amLODIPine (NORVASC) 10 mg tablet Take 1 tablet by mouth once daily. rosuvastatin (CRESTOR) 10 mg tablet take 1 tablet by mouth once daily at bedtime baclofen 5 mg tablet take 1 tablet by mouth three times daily losartan (COZAAR) 50 mg tablet Take 1 tablet by mouth once daily. Lancets (ACCU-CHEK SOFTCLIX LANCETS) lancets USE DIRECTED 1 ONCE DAILY NEEDED ascorbic acid, vitamin C, (VITAMIN C) 500 mg tablet 1 tab(s) orally once a day for 30 day(s) betamethasone dipropionate 0.05 % ointment Apply to affected area twice daily. blood sugar diagnostic (ACCU-CHEK KAYCEE PLUS TEST STRP) test strip Use as instructed to check blood sugar once daily as needed. albuterol HFA (VENTOLIN HFA) 90 mcg/actuation inhaler Inhale 2 Puffs as instructed every 4 hours as needed for wheezing/shortness of breath. citalopram (CELEXA) 20 mg tablet Take 1 tablet by mouth once daily BREO ELLIPTA 200-25 mcg/dose inhaler Inhale 1 Inhalation as instructed once daily. No current facility-administered medications for this visit. I have confirmed and edited as necessary the chief complaint, medications, past medical, family and social histories. Objective 07/01/24 1459 BP: 127/60 Pulse: (!) 59 Temp: 36.2 C (97.2 F) Weight: 152 lb (68.9 kg) Height: 5' 1 (1.549 m) Body mass index is 28.72 kg/m . Physical Exam Vitals and nursing note reviewed. Constitutional: General: She is not in acute distress. Appearance: She is not ill-appearing. HENT: Head: Normocephalic and atraumatic. Right Ear: Tympanic membrane and external ear normal. Left Ear: Tympanic membrane and external ear normal. Nose: Nose normal. Mouth/Throat: Mouth: Mucous membranes are moist. Pharynx: No oropharyngeal exudate. Eyes: General: No scleral icterus. Conjunctiva/sclera: Conjunctivae normal. Pupils: Pupils are equal, round, and reactive to light. Cardiovascular: Rate and Rhythm: Normal rate and regular rhythm. Heart sounds: Normal heart sounds. No murmur heard. No friction rub. No gallop. Pulmonary: Effort: Pulmonary effort is normal. No respiratory distress. Breath sounds: Normal breath sounds. No wheezing or rales. Abdominal: General: Bowel sounds are normal. There is no distension. Palpations: Abdomen is soft. Tenderness: There is no abdominal tenderness. There is no guarding or rebound. Musculoskeletal: General: No swelling, tenderness or deformity. Normal range of motion. Comments: Mild thoracic kyphosis. Limited ROM of neck (rotation, flex/ext) Skin: General: Skin is warm and dry. Coloration: Skin is not pale. Findings: No erythema or rash. Neurological: Mental Status: She is alert. Psychiatric: Mood and Affect: Affect normal. Results for orders placed or performed in visit on 10/24/23 HEMOGLOBIN A1C (POC) Result Value Ref Range Hemoglobin A1C (POCT) 7.8 (A) 4.3 - 5.6 % Assessment / Plan Akila was seen today for diabetes. Diagnoses and all orders for this visit: Type 2 diabetes mellitus with peripheral neuropathy (HCC) - CONSULT TO OPHTHALMOLOGY; Future - HEMOGLOBIN A1C (POC) Screening for diabetic retinopathy - CONSULT TO OPHTHALMOLOGY; Future Primary hypertension Depression screen - BEHAVIORAL HEALTH SCREENING Mild persistent asthma without complication - BREO ELLIPTA 200-25 mcg/dose inhaler; Inhale 1 Inhalation as instructed once daily. ASSESSMENT/PLAN: 1. Type 2 diabetes mellitus with peripheral neuropathy (HCC) - ICD9: 250.60, 357.2, ICD10: E11.42 (primary diagnosis) - Controlled for age. A1c 7.8, slightly up from 7.3 - Continue current medications - Counseled on healthy diet and regular exercise - Discussed need for and benefit of weight loss. BMI 28.72 kg/(m^2) - CONSULT TO OPHTHALMOLOGY - HEMOGLOBIN A1C (POC) 2. Screening for diabetic retinopathy - ICD9: V80.2, ICD10: Z13.5 - CONSULT TO OPHTHALMOLOGY 3. Primary hypertension - ICD9: 401.9, ICD10: I10 - Controlled - Continue current medications - Recommend home blood pressure monitoring, to bring results to next visit - Encouraged sodium restriction, DASH or Mediterranean diet - Recommend regular aerobic exercise 4. Depression screen - ICD9: V79.0, ICD10: Z13.31 - BEHAVIORAL HEALTH SCREENING 5. Mild persistent asthma without complication - ICD9: 493.90, ICD10: J45.30 - Mild persistent asthma stable - Continue current medications - Avoidance of triggers recommended - BREO ELLIPTA 200 MCG-25 MCG/DOSE POWDER FOR INHALATION Betty Bueno MD Return in about 3 months (around 01/24/2024). Discussed the above with the patient using shared decision-making. The patient is in agreement with the diagnostic and treatment plans. Provider: Betty Bueno MD Date: October 24, 2023 Time: 1:23 PM documented in this encounter [facility] 10-12-2023 Telephone encounter Note Spoke to pharmacist 30 tablets with 1 refill Ashley Fleming APRN.CNP [facility] 10-12-2023 Miscellaneous Notes Spoke to pharmacist 30 tablets with 1 refill Ashley Fleming APRN.CNP Pharmacy will like clarification on sig for Tramadol. Is it suppose to be 30 at a time or 30 and 1 refill. Please Clarify. documented in this encounter [facility] 10-12-2023 Telephone encounter Note Pharmacy will like clarification on sig for Tramadol. Is it suppose to be 30 at a time or 30 and 1 refill. Please Clarify. [facility] 10-11-2023 Telephone encounter Note duplicate [facility] 10-11-2023 Miscellaneous Notes duplicate documented in this encounter [facility] 10-10-2023 History of Present illness Narrative Program_ID:[id number] Access Code: [email or web address] URL: [email or web address] Date: 10-10-2023 Prepared By: Panda Mcadams Program Notes Exercises - Supine Quad Set - 1 x daily - 7 x weekly - 1 sets - 10 reps - Hooklying Clamshell with Resistance - 1 x daily - 7 x weekly - 2 sets - 10 reps - Supine Heel Slide - 1 x daily - 7 x weekly - 2 sets - 10 reps - Supine Bridge - 1 x daily - 7 x weekly - 3 sets - 10 reps - Supine Active Straight Leg Raise - 1 x daily - 7 x weekly - 3 sets - 10 reps Episode Visit Count: 3 Therapist That Will Accept/Oversee The Plan Of Care: Mahendra Mcadams Start of Care Date: 08/30/23 Onset Date: 06/24/23 Plan of Care Certification Date: 08/30/23 Next Certification Due Date: 08/05/24 Patient Identified by Name and Date of : Yes [facility]AB[facility] SPORTS THERAPY PHYSICAL THERAPY TREATMENT NOTE ASSESSMENT: Akila De Los Santos tolerated the session with no issues. She demonstrated difficulty with SLR due to muscle weakness. Required UE assistance to complete exercise. Had good response to added exercises focusing on quad and hip strengthening. The patient will continue to benefit from ongoing skilled physical therapy to progress toward set goals. PLAN FOR NEXT VISIT: Progress hip and quad strength, knee mobility as tolerated. patellar mobilizations SUBJECTIVE: Patient reports having to cancel last session due to knee being too swollen. Stated thinking the fluid in the back of her knee is getting bigger. Also stated has been using her cane due to her leg starting to give out on her. Pain: Pain Pain Location: Knee - Right OBJECTIVE MEASURES WITH LEVEL OF FUNCTION: TREATMENT: Therapeutic Exercise: 1: NuStep LE--level 3--4' 2: quad sets 20x5 3: SLR 2x10 4: heel slides x10 5: bridges x10 6: HL clams green 2x10 7: fwd step ups 4 2x10 Skilled Intervention: Patient was educated in proper exercise technique and purpose for exercises. Skilled judgment was used in selection of appropriate interventions. Billing Therapeutic Exercise Treatment Minutes: 42 Skilled Treatment Time Minutes (timed and untimed codes): 42 Total Session Time (minutes): 42 Session Start Time : 1618 Session Stop Time : 1700 Winston Hernandez PTA documented in this encounter [facility] 10-10-2023 Telephone encounter Note Procedure(s) being scheduled: 1.Are you diabetic Yes. Please list the current medications being prescribed Diet controled . 2. Are you on any blood thinners? No If yes, does it require a hold? No If yes, was approval letter sent? No 3. Are you taking any aspirin? No 4. Are you currently taking any antibiotics? No If yes, is it prophylactic or for treatment of an infection? 5. Do you have any allergies to latex? Yes 6. Do you have any allergies to seafood or shellfish? No 7. Do you have any allergies to x-ray dye? No 8. Did the physician instruct you to take any medication prior to your procedure? No 9. Does this procedure require a bobtail driver? Yes If yes, has patient been notified that a bobtail driver is needed and must be present at check in? YES 10. Were the pre-procedure instructions explained and provided to the patient? Yes 11. Do you have a pacemaker? No 12. Do you have an internal stimulator of any kind? No If yes, please bring the remote with you to your procedure visit. 13. Have you received the COVID-19 Vaccine? No. If yes, date(s) received: (Patient should not receive a procedure including steroids 14 days prior to their first dose of the COVID vaccine. They should not receive any procedure containing steroids in the time frame between their 1st and 2nd doses of the COVID vaccine. They should not receive a procedure containing steroids 14 days after their 2nd dose of the COVID vaccine.) Shirin Perez [facility] 10-10-2023 Miscellaneous Notes Procedure(s) being scheduled: 1.Are you diabetic Yes. Please list the current medications being prescribed Diet controled . 2. Are you on any blood thinners? No If yes, does it require a hold? No If yes, was approval letter sent? No 3. Are you taking any aspirin? No 4. Are you currently taking any antibiotics? No If yes, is it prophylactic or for treatment of an infection? 5. Do you have any allergies to latex? Yes 6. Do you have any allergies to seafood or shellfish? No 7. Do you have any allergies to x-ray dye? No 8. Did the physician instruct you to take any medication prior to your procedure? No 9. Does this procedure require a bobtail driver? Yes If yes, has patient been notified that a bobtail driver is needed and must be present at check in? YES 10. Were the pre-procedure instructions explained and provided to the patient? Yes 11. Do you have a pacemaker? No 12. Do you have an internal stimulator of any kind? No If yes, please bring the remote with you to your procedure visit. 13. Have you received the COVID-19 Vaccine? No. If yes, date(s) received: (Patient should not receive a procedure including steroids 14 days prior to their first dose of the COVID vaccine. They should not receive any procedure containing steroids in the time frame between their 1st and 2nd doses of the COVID vaccine. They should not receive a procedure containing steroids 14 days after their 2nd dose of the COVID vaccine.) Shirin Perez documented in this encounter [facility] 10-10-2023 History of Present illness Narrative Images from the original note were not included. [facility] [place] [facility] Today's Date:10/10/23 Name: Akila De Los Santos : 1945 Purpose: Follow-up Patient Evaluation - This is an established patient, returning today for continued evaluation and management of the chief complaint noted below Chief complaint: lumbar pain Pertinent Past Medical History: asthma, DM2, PAD, TIA Pertinent Past Surgeries: No spine Plan at last visit: (Seen on 07/13/23 by Ashley Fleming CNP) Interventional Procedure(s): none Medications: Lyrica 50mg TID - continue Tramadol 50mg, #45/qmonthly - she states not taking daily- she will call when she needs a refill. Functional Restorationism: NONE Depending on response to the above plan, consider: Repeat SI Joint injection; ; SI Joint RFA (prefers to avoid RFA at this time); MBB/RFA C spine or L-spine; Repeat Caudal Epidural Steroid Injection Interval History: Overall pain and functional disability since last visit: Better New Complaints since last visit: No Today she states her back is a lot better. Denies LOC of bowel and bladder, no saddle anesthesia, no BLE weakness, no recent falls. She ambulates with a cane. She states the Lyrica has resolved her nerve pain. She tolerates both the Tramadol and Lyrica without side effects. The medication allow her to function daily and she feels she would not be able to perform her ADL's without the medication. Denies LOC of bowel and bladder, no saddle anesthesia, no BLE weakness, no recent falls. She I shaving a right knee MRI 6/18/24. Current Pain Medications: Neuropathics: Lyrica NSAIDS: Muscle Relaxants: Topicals: Other Prescription or OTC Pain Medications: Opioids (when applicable): Tramadol MEDICATION NAME Tramadol STRENGTH 50 LAST FILL DATE 09/14/2023 DATE LAST DOSE TAKEN 10/09/2023 (7pm) QUANTITY FILLED 23 QUANTITY REMAINING 5 Urine Drug Screen Questionnaire URINE DRUG SCREEN Completed Date 10/10/2023 Anti-depressants or Mood-Stabilizers: Celexa Anti-Coagulants: None Therapies Attended (Current or Most Recent): No Current Therapies 03/12/2022 05/10/2022 07/09/2022 09/10/2022 01/21/2023 04/04/2023 07/18/2023 AG SPINE COMBINATION Questionnaire URINE DRUG SCREEN URINE DRUG SCREEN URINE DRUG SCREEN URINE DRUG SCREEN URINE DRUG SCREEN URINE DRUG SCREEN URINE DRUG SCREEN Completed Date 03/12/2022 05/10/2022 07/09/2022 09/10/2022 01/21/2023 04/04/2023 07/18/2023 Comments phenobarbitol is a metobolite of her Rx Primidone, her UDS was appropriately postive for this Questionnaire NA/OIC NA/OIC NA/OIC Completed Date 03/12/2022 09/10/2022 01/21/2023 Comments Monitored Medication Agreement - signed Questionnaire Opiod Risk Tool Opiod Risk Tool Completed Date 05/10/2022 04/04/2023 Comments 3 No question data found. (All drug screens are appropriate unless indicated otherwise) Notable Events During Course of Treatment: N/A Treatment History: PAIN PROCEDURES: DATE PROCEDURE IMPROVEMENT 08/09/2022 Bilat SI Joint 85% (01/21/2023 ) 02/01/2022 Caudal CHAZ 70% x 7 months 11/26/2021 Bilat SI Joint 85% x nearly 6 months 04/07/2021 Bilat SI Joint 90% x 6 months Data Reviewed Today: Allergies: ALLERGIES Allergen Reactions Aspirin Shortness of Breath Lisinopril Swelling Latex Rash Penicillins Hives, Rash Sulfamethoxazole Hives Trileptal [Oxcarbaz* Other: See Comments Balance Problems after taking for a few days Social History Tobacco Use Smoking status: Former Types: Cigarettes Smokeless tobacco: Never Vaping Use Vaping Use: Never used Substance Use Topics Alcohol use: Never Drug use: Never 08/30/2023 10/06/2023 INTAKE PAIN ASSESSMENT Are you having pain associated with your visit today? Yes, Provider notified Pain Level 2 6 Pain Location Back-Lower Description Aching Aching;Radiating;Sharp;Sore Duration Amount of Time 4 Duration Units Weeks Frequency Continuous Intervention/Comfort measure Medication;Relaxation;Heat Compliance: PDMP website checked and validated on 10/09/2023 by Ashley Fleming APRN.MULTIPLE SLIDE OPERATOR All prescriptions have been APPROPRIATELY filled. No suspicious activity was identified. 03/12/2022 05/10/2022 07/09/2022 09/10/2022 01/21/2023 04/04/2023 07/18/2023 AG SPINE COMBINATION Questionnaire URINE DRUG SCREEN URINE DRUG SCREEN URINE DRUG SCREEN URINE DRUG SCREEN URINE DRUG SCREEN URINE DRUG SCREEN URINE DRUG SCREEN Completed Date 03/12/2022 05/10/2022 07/09/2022 09/10/2022 01/21/2023 04/04/2023 07/18/2023 Comments phenobarbitol is a metobolite of her Rx Primidone, her UDS was appropriately postive for this Questionnaire NA/OIC NA/OIC NA/OIC Completed Date 03/12/2022 09/10/2022 01/21/2023 Comments Monitored Medication Agreement - signed Questionnaire Opiod Risk Tool Opiod Risk Tool Completed Date 05/10/2022 04/04/2023 Comments 3 (All drug screens are appropriate unless indicated otherwise) Risk Assessment: ISA-7: 11/19/2022 ISA - 7 SCORES Score 0 (0-4) minimal anxiety, (5-9) mild anxiety, (10-14) moderate anxiety, (15-21) severe anxiety PHQ-9: 04/08/2021 02/15/2022 PHQ-9 Score 0 3 (0-4) minimal depression, (5-9) mild depression, (10-14) moderate depression, (15-19) moderately severe depression, (20-27) severe depression Diagnostic Studies: Relevant Imaging: MRI Spine Report MRI CERVICAL SPINE WO IVCON Exam End: 08/25/2022 3:08 PM (Final result) Narrative: * * *Final Report* * * DATE OF EXAM: Aug 25 2022 3:08PM Cynthia Chris - MRI CERVICAL SPINE WO IVCON / PROCEDURE REASON: multiple diagnoses * * * * Physician Interpretation * * * * EXAMINATION: MRI CERVICAL SPINE WO IVCON CLINICAL HISTORY: Spondylolysis of cervical region. Spinal stenosis of cervical region . TECHNIQUE: Routine cervical spine MR protocol without gadolinium. MQ: [id number] COMPARISON: Cervical spine radiographs 07/30/2022 RESULT: Counting reference: Craniocervical junction. Anatomic Variants: None. Localizer images: No additional findings. Alignment: There is straightening of normal cervical lordosis due to spondylolisthesis. There is mild retrolisthesis of C3 on C4 and C6 on C7. Craniocervical junction: Craniocervical junction is normal. Cord: The visualized cord is within normal limits of signal intensity and morphology. Bone marrow signal/fracture: No evidence of pathologic marrow infiltration. No evidence of prior fracture. There is moderate disc space height loss at C5-C6 and C6-C7. There are Modic type II degenerative endplate changes at C5-C6 and C6-C7 with vertebral body osteophyte formation. Cervical soft tissues: The paraspinal soft tissues are within normal limits. C2-C3: Canal and foramina are patent. C3-C4: Disc osteophyte complex effaces the ventral CSF contacting the ventral cord and along with ligamentum flavum thickening causes moderate stenosis of the spinal canal. There is severe left and moderate right neural foraminal narrowing due to uncovertebral and facet joint degenerative change. C4-C5: Disc osteophyte complex causes mild narrowing of the spinal canal. There is severe narrowing of both neural foramina due to uncovertebral arthropathy. C5-C6: Disc osteophyte complex impresses on the ventral thecal sac but without narrowing of the spinal canal. There is severe left and moderate right neural foraminal narrowing due to uncovertebral arthropathy. C6-C7: Disc osteophyte complex impresses on the ventral thecal sac with minimal narrowing of the spinal canal. There is severe left and moderate right neural foraminal narrowing due to uncovertebral arthropathy. C7-T1: Canal and foramina are patent. Impression: IMPRESSION: 1. Multilevel degenerative cervical spondylosis with straightening of cervical lordosis. 2. At C3-C4 there is moderate stenosis of the spinal canal and severe left neural foraminal stenosis. 3. There is multilevel high-grade neural foraminal stenosis as detailed. Anatomic Variant: None. Assume 7 cervical vertebrae with counting from the craniocervical junction. Can Machine Operator: PSCB Transcribe Date/Time: Aug 26 2022 3:21P Dictated by : TREVOR MELÉNDEZ MD This examination was interpreted and the report reviewed and electronically signed by: TREVOR MELÉNDEZ MD on Aug 26 2022 3:32PM EST Electrodiagnostic Study (EMG): None Recent Labs: Creatinine Date Value Ref Range Status 02/23/2023 0.74 0.58 - 0.96 mg/dL Final No results found for: EGFR Glucose, Point of Care Date Value Ref Range Status 01/17/2023 136 (A) 74 - 99 mg/dL Final Comment: Location:[facility], [address] [place] [address], [facility] The Accu-Chek Inform II glucose meter has not been approved for testing on patients receiving intensive medical intervention or therapy and results from this point of care glucose test should not be used for patient management decisions in these cases. Inaccurate results may also occur from other interfering factors, such as N-acetylcysteine (blood concentrations of greater than 5mg/dL), galactose, extremes of hematocrit (<10 or >65), or high doses of ascorbic acid (vitamin C) greater than 3mg/dL. Consider alternate testing mechanisms (e.g. core lab, blood gas instrument) in the above situations. Current Medications, Past Medical History, Past Surgical History, Family History, Social History and Review of Systems: On today's date, noted above, I have confirmed and edited as necessary, the PFSH and ROS obtained by others. Physical Exam: There were no vitals filed for this visit. Physical Exam Constitutional: Appearance: Normal appearance. HENT: Head: Normocephalic. Right Ear: External ear normal. Left Ear: External ear normal. Eyes: Extraocular Movements: Extraocular movements intact. Cardiovascular: Pulses: Normal pulses. Pulmonary: Effort: Pulmonary effort is normal. Musculoskeletal: BLE SLR negative- seated position BLE strength 5/5 and symmetrical BLE sensation intact and symmetrical BLE patellar reflexes intact difficult to elicit Tenderness across L1- C7 paraspinal musculature Skin: General: Skin is warm and dry. Capillary Refill: Capillary refill takes 2 to 3 seconds. Neurological: General: No focal deficit present. Mental Status: He is alert and oriented to person, place, and time. Psychiatric: Mood and Affect: Mood normal. Behavior: Behavior normal. IMPRESSION: 78 year old female presents with with significant past medical history for low back decompressive surgeries x 3, scoliosis, who presents with complaint(s) of ongoing axial low back pain, lower limb radicular symptoms due to spinal stenosis. Has been established with pain management in [place], just moved to [place]. Stable on very low doses of medication. Patient is being treated for the conditions noted above, who presents today for medication refill. Refill without adjustments were provided after verifying the history noted above, performing a focused physical examination, and reviewing available compliance data including (where available) the PDMP/OARRS system, pill counts, toxicology screens. Diagnoses: (Z79.891) Encounter for long-term use of opiate analgesic (primary encounter diagnosis) An opioid agreement was reviewed and signed with the patient. A copy was given to the patient. OARRS was reviewed and was consistent with the history. A drug screen pecimen was obtained for toxicology screening. Adequate analgesia, ADLS's maintained, no adverse effects, no aberrant behaviors noted The patient and I discussed the nature of this medication and its side effects. We discussed tolerance, physical dependence, psychological dependence, addiction and opioid-induced hyperalgesia. We discussed the need for safe storage of medication We discussed the potential need to wean from this medication. We discussed the availability of programs that can help with this process if necessary. We discussed safety issues related to opioids including safe storage. We discussed the fact that the patient should not drive an automobile or operate heavy machinery while taking this medication. Patient reports they are happy with current treatment care path. For this reason I will refill the patient's opioids today for 90 days. The patient continues to see benefit and improvement in their quality of life and ability to maintain ADLs. Patient advised that the medications may cause impairment of judgement while driving or operating machinery. We will re-evaluate the opiate regimen in 90 days at an office visit to determine efficacy of treatment to ensure that we are using the lowest dose for maximum benefit. Examined patient and confirmed feliz findings on history and examination and ROS as noted above. Some elements of my note were copied from 07/18/23, which have been updated where appropriate and reflect my current medical decision making for today at 10/10/23. PLAN: Akila De Los Santos would benefit from the following to reach personal goals for decreasing pain, improving function and work participation, and/or improving quality of life: Medications: Requested Prescriptions Pending Prescriptions Disp Refills pregabalin (LYRICA) 50 mg capsule 90 capsule 5 Sig: Take one pill three times per day Do not start before January 24, 2024. traMADol (ULTRAM) 50 mg tablet 30 tablet 0 Sig: Take 1 tablet by mouth at bedtime as needed for pain for up to 30 days. Interventional Procedures: Epidural Steroid Injection - Interlaminar Approach (ILESI) under fluoroscopic guidance MIDLINE at [employer] Lead Needed: Epidural - YES Anticoagulant - Hold Needed: N/A (Not currently on Anticoagulants) Anticoagulant - Currently Taking: None Allergies (relevant): None Scheduling - Mobility (Can Patient independently transfer on/off an OR or Procedure table?): NO (Please do not schedule at [place] or [facility]) Scheduling - Additional Info: XANAX Prescribed - Needs to arrive 45 min prior to procedure; No driving 24 hours after injection; Bring to procedure (do not take in advance) Studies: URINE DRUG SCREEN (IN OFFICE TODAY) NAOIC AMALIA Functional Restorationism: NONE Referrals: No additional considerations at present Follow-up: 3 months Depending on response to the above plan, consider: TBD Patient Education, Compliance and Clinic Policies Reviewed and/or Discussed Today: None Attribution: In addition to reviewing the information noted above, some elements copied from my most recent clinical note(s), including the physical exam (completed in entirety today), and the impression and plan sections, have been updated where appropriate. All reflect current medical decision making from today's date. Ashley Fleming APRN.[facility] Review of Systems Constitutional: Negative for activity change, chills, fever and unexpected weight change. Genitourinary: Negative for difficulty urinating. Musculoskeletal: Positive for arthralgias, back pain, gait problem, joint swelling, myalgias, neck pain and neck stiffness. Neurological: Negative for weakness, numbness and headaches. Psychiatric/Behavioral: Positive for sleep disturbance. Negative for dysphoric mood and suicidal ideas. The patient is not nervous/anxious. documented in this encounter [facility] 10-10-2023 Instructions Ashley Fleming APRN.CNP - 10/10/2023 2:43 PM EDT Ice and heat as tolerated Activity as tolerated documented in this encounter [facility] 09-23-2023 Telephone encounter Note Referral to Orthopedics entered into the [facility] portal on 09/23/23. Confirmation number [id number]. [facility] 09-23-2023 Miscellaneous Notes Referral to Orthopedics entered into the [facility] portal on 09/23/23. Confirmation number [id number]. documented in this encounter [facility] 09-14-2023 Telephone encounter Note OARRS and UDS appropriate Refill sent to pharmacy Ashley Fleming APRN.MULTIPLE SLIDE OPERATOR [facility] 09-14-2023 Miscellaneous Notes OARRS and UDS appropriate Refill sent to pharmacy Ashley Fleming APRN.MULTIPLE SLIDE OPERATOR documented in this encounter [facility] 09-12-2023 History of Present illness Narrative Episode Visit Count: 2 Therapist That Will Accept/Oversee The Plan Of Care: Mahendra Mcadams Start of Care Date: 08/30/23 Onset Date: 06/24/23 Plan of Care Certification Date: 08/30/23 Next Certification Due Date: 11/28/23 Patient Identified by Name and Date of : Yes RE[facility]ATION AND SPORTS THERAPY PHYSICAL THERAPY TREATMENT NOTE ASSESSMENT: Akila De Los Santos tolerated the session with expected muscle soreness. She demonstrated tenderness with STM to RLE. The patient will continue to benefit from ongoing skilled physical therapy to progress toward set goals. PLAN FOR NEXT VISIT: Progress hip and quad strength, knee mobility as tolerated. patellar mobilizations SUBJECTIVE: Still sore right knee. Doing HEP Pain: Pain Pain Location: Knee - Right Frequency: Walking Worst Pain Level: 5 Average Pain Level: 2 Best Pain Level: 0 OBJECTIVE MEASURES WITH LEVEL OF FUNCTION: Add new exercise today. TREATMENT: Therapeutic Exercise: 1: NuStep LE--level 3--4' 2: Manual--see below 3: Sit-stand--23--1x10 4: Step ups--4--1x10 Skilled Intervention: Patient was educated in proper exercise technique and purpose for exercises. Manual Therapy: 1: Manual supine hamstring and calf stretch 2x30 2: STM right calf and quad--4' Skilled Intervention: Manual skills to improve joint mobility, ROM, and decrease pain. Utilized anatomy knowledge of the therapist, and assessment of patient's response to intervention. Billing Therapeutic Exercise Treatment Minutes: 31 Manual TherapyTreatment Minutes: 7 Skilled Treatment Time Minutes (timed and untimed codes): 38 Total Session Time (minutes): 38 Session Start Time : 1258 Session Stop Time : 1336 Sandip Pappas PT documented in this encounter [facility] 08-30-2023 History of Present illness Narrative Program_ID:[id number] Access Code: [email or web address] URL: [email or web address] Date: 08-30-2023 Prepared By: Panda Mcadams Program Notes Exercises - Supine Quad Set - 1 x daily - 7 x weekly - 1 sets - 10 reps - Hooklying Clamshell with Resistance - 1 x daily - 7 x weekly - 2 sets - 10 reps - Supine Heel Slide - 1 x daily - 7 x weekly - 2 sets - 10 reps Images from the original note were not included. Episode Visit Count: 1 Therapist That Will Accept/Oversee The Plan Of Care: Mahendra Mcadams Start of Care Date: 08/30/23 Onset Date: 06/24/23 Plan of Care Certification Date: 08/30/23 Next Certification Due Date: 11/28/23 Patient Identified by Name and Date of : Yes REHABILITATION AND SPORTS THERAPY PHYSICAL THERAPY EVALUATION PLAN OF CARE: Assessment: Akila De Los Santos presents with chief complaint of acute pain of right knee that interferes with rising from a chair, walking in the community, stair negotiation, physical activities . She presents with impairments in gait, range of motion, strength, and tissue tenderness. PROMIS (Patient-Reported Outcomes Measurement Information System) scores were reviewed and identified as a rehabilitation concern. Prognosis for therapy is Good due to: acuteness of condition, current objective clinical presentation . She will benefit from skilled therapy services to meet the goals established for this plan of care as noted below. Goals for Episode of Care: created on 08/30/23 through 10/29/23 [place] in home exercise program. Patient will decrease pain rating by 2 points to meet minimal clinical important difference for numeric pain rating scale. Patient will increase active ROM of R knee to 0-120 to allow pt to to improve performance of ADLs and to improve gait mechanics / gait pattern . Patient will demonstrate increase in RLE strength to >4/5 during manual muscle testing in order to improve function for home management tasks. Planned Interventions, Frequency, and Duration: Current Frequency: 1x/week (per pt request d/t copay) Duration: 8 weeks Total Number of Visits Planned: 8 Planned Treatment Interventions: Therapeutic exercise (74794), Neuromuscular re-education (99949), Manual therapy (10550), Therapeutic activities (26633), Self-penitentiary management (87986), Gait Training (45107), General Conditioning PLAN FOR NEXT VISIT: Progress hip and quad strength, knee mobility as tolerated. patellar mobilizations Patient demonstrates good understanding of plan of care and treatment. The above goals and plan of care were discussed and agreed upon by patient/family. SUBJECTIVE: R knee pain. Started when she was going down the stairs and had to put her right foot down to prevent from falling. Inc pain first thing in the morning. Would wake her up at night when it first started. Functional Limitations: rising from a chair, walking in the community, stair negotiation, physical activities Prior Level of Function: Independent without limitations Relevant History Past Relevant Medical Conditions: Arthritis, Circulation / Vascular Issues, Diabetes, Asthma (TIA , PAD, scoliosis) Past Relevant Surgical Conditions: Spine fusion - Lumbar Spine Fusion - Lumbar Comments: most recent in 2007 Recreation / Current Exercise: Walking outside Home Environment Home Type: Apt/Condo Entry To Home: Elevator Intake Information: Prescription present Previous Treatment: Heat , Self prescribed exercises (compression stockings) Falls Interview: No positive findings with falls interview Pain: Pain Pain Level: 2 Pain Location: Knee - Right Description: Aching Frequency: Walking Detailed Pain Score: Yes Worst Pain Level: 5 Average Pain Level: 2 Best Pain Level: 0 PROMIS Scales 08/29/2023 11/30/2021 10/29/2021 Higher is Better Phys Func - Score 33 (moderate dysfunction) 41 (mild dysfunction) 39 (moderate dysfunction) Phys Func - Percentile 4 18 14 Self-Eff Symptom - Score 49 (Average) 54 (Average) 44 (Average) Self-Eff Symptom - Percentile 46 66 27 T-scores: mean of general population = 50. 5 points is clinically meaningfully difference Percentiles provide an indication of how the patient's score ranks in relation to the general population. Higher percentile rankings indicate better function/quality of life. 50th percentile is the average of the general population and indicates half of respondents had a worse score. OBJECTIVE MEASURES WITH LEVEL OF FUNCTION: Knee Observations R Knee Presents with: Swelling R Swelling: moderate R Knee Palpation Tenderness: Medial joint line, Lateral joint line Sensation - Lower Extremity LE Light Touch Sensation: Grossly Intact LE AROM R Knee Extension: -5 Degrees R Knee Flexion: 110 Degrees L Knee Extension: 0 Degrees L Knee Flexion: 120 Degrees LE Joint Mobility R Patellar Mobility: Hypomobile L Patellar Mobility: WNL LE Strength R Hip Extension: 3+/5 R Hip Flexion (L2): 3+/5 R Hip ABduction: 3+/5 R Knee Extension (L3): 4/5 (pain) R Knee Flexion: 5/5 (pain) R Ankle Dorsiflexion (L4): 4+/5 L Hip Extension: 4+/5 L Hip Flexion (L2): 4+/5 L Hip ABduction: 4/5 L Knee Extension (L3): 5/5 L Knee Flexion: 4+/5 L Ankle Dorsiflexion (L4): 4+/5 Special Tests - Knee Knee Special Tests: Anterior Drawer, Valgus stress at 0 degrees, Valgus stress at 30 degrees, Varus stress at 0 degrees, Varus stress at 30 degrees, Bethany's Test Anterior Drawer: Right Negative, Left Negative Bethany's Test: Right Negative, Left Negative Valgus stress at 0 degrees: Right Negative Valgus stress at 30 degrees: Right Negative Varus stress at 0 degrees: Right Negative Varus stress at 30 degrees: Right Negative Gait Weight Bearing Status: FWB Gait: Independent Gait Deviations: General Deviations General Deviations/Observations: Antalgic gait, Charlene decreased Education: Education Learning/educational needs: Plan of Care, Home exercise program TREATMENT: PT Treatment Interventions: Therapeutic Exercise Evaluation Evaluation Therapeutic Exercise: 1: *QS x10 5' hold 2: *heel slides 2x10 3: *HL clam blue 2x10 4: Ed pt on findings of exam, POC, HEP, and goals of therapy. Skilled Intervention: Patient was educated in proper exercise technique and purpose for exercises. Reviewed and educated patient on additions/changes for home exercise program as above (*). Skilled judgment was used in selection of appropriate interventions. Provided written instruction for home exercise program to facilitate proper performance and compliance. Billing * Evaluation Low Complexity: 1 Unit Therapeutic Exercise Treatment Minutes: 15 Total Session Time (minutes): 46 Session Start Time : 1525 Session Stop Time : 1611 Panda Mcadams PT documented in this encounter [facility] 08-10-2023 Miscellaneous Notes Referral from Dr. Bueno for right knee pain. PC to patient who stated that the swelling has decreased and she has been able to perform exercises and walk without an issue, doing much better. Patient declined appointment. Chiquis Marks August 10, 2023 10:08 AM documented in this encounter [facility] 08-09-2023 History of Present illness Narrative [facility] POPULATION HEALTH NAVIGATION OUTREACH Action/FYI Last AMW 11-19-22. Erlinda will pay for AMW anytime in 2023, does not need to be 12 months. JK Patient Identified by Name and : Yes, via phone Reason for Outreach Care Gap or Scheduling Wellness Visits Care Gap Reviewed:: Annual Wellness visit Outreach Outcome/Action Spoke to patient / parent / legal guardian: Patient scheduled for 01-02-2024 Population Health Navigation Workflow Chart Review Payer: Erlinda Navigation Signature: Eloise Ferro August 09, 2023 1:09 PM documented in this encounter [facility] 08-09-2023 Miscellaneous Notes Subsequently seen in office. Betty Bueno MD documented in this encounter [facility] 04-16-2024 Miscellaneous Notes Referral to ORTHOPEDICS entered into the [facility] portal on 08/09/2023. Confirmation number [id number]. documented in this encounter [facility] 07-18-2023 Instructions Ashley Fleming APRN.CNP - 07/18/2023 2:47 PM EDT Ice and heat as tolerated Activity as tolerated documented in this encounter [facility] 07-18-2023 History of Present illness Narrative Images from the original note were not included. [facility] [place] [facility] Today's Date: 07/18/23 Name: Akila De Los Santos : 1945 Purpose: Follow-up Patient Evaluation - This is an established patient, returning today for continued evaluation and management of the chief complaint noted below Chief complaint: lumbar pain Pertinent Past Medical History: PAST MEDICAL HISTORY Diagnosis Date Asthma Diabetes mellitus (HCC) DJD (degenerative joint disease) Osteoarthritis of multiple joints PAD (peripheral artery disease) (HCC) TIA (transient ischemic attack) Pertinent Past Surgeries: PAST SURGICAL HISTORY Procedure Laterality Date CATARACT EXTRACTION HX Left 11/2016 CATARACT EXTRACTION HX Right 11/2018 TOTAL ABDOM HYSTERECTOMY Plan at last visit: Interventional Procedure(s): none The risks, benefits, alternative treatment options and prognosis of the procedure were discussed and all of the patient's questions/concerns were addressed to the patient's satisfaction. The patient expressed understanding and gave verbal consent to proceed. Current Anti-Coagulant Use: No Medications: Lyrica 50mg TID - continue Tramadol 50mg, #45/qmonthly - she states not taking daily- she will call when she needs a refill. ISA-7/PHQ-2, and ORT: Reviewed Functional Restorationism: NONE Depending on response to the above plan, consider: Repeat SI Joint injection; ; SI Joint RFA (prefers to avoid RFA at this time); MBB/RFA C spine or L-spine; Repeat Caudal Epidural Steroid Injection Interval History: Overall pain and functional disability since last visit: Better New Complaints since last visit: No Today she states her back is a lot better. Denies LOC of bowel and bladder, no saddle anesthesia, no BLE weakness, no recent falls. Dr Bueno has ordered a right knee xray. She ambulates with a cane. Current Pain Medications: Neuropathics: Lyrica NSAIDS: Muscle Relaxants: Topicals: Other Prescription or OTC Pain Medications: Opioids (when applicable): Tramadol Urine Drug Screen Questionnaire URINE DRUG SCREEN Completed Date 07/18/2023 MEDICATION NAME TRAMADOL STRENGTH 50 LAST FILL DATE 01/28/2023 DATE LAST DOSE TAKEN 07/16/2023 (1800) QUANTITY FILLED 45 QUANTITY REMAINING 4 Anti-depressants or Mood-Stabilizers: Celexa Anti-Coagulants: None Therapies Attended (Current or Most Recent): No Current Therapies 03/12/2022 05/10/2022 07/09/2022 09/10/2022 01/21/2023 04/04/2023 07/18/2023 AG SPINE COMBINATION Questionnaire URINE DRUG SCREEN URINE DRUG SCREEN URINE DRUG SCREEN URINE DRUG SCREEN URINE DRUG SCREEN URINE DRUG SCREEN URINE DRUG SCREEN Completed Date 03/12/2022 05/10/2022 07/09/2022 09/10/2022 01/21/2023 04/04/2023 07/18/2023 Comments phenobarbitol is a metobolite of her Rx Primidone, her UDS was appropriately postive for this Questionnaire NA/OIC NA/OIC NA/OIC Completed Date 03/12/2022 09/10/2022 01/21/2023 Comments Monitored Medication Agreement - signed Questionnaire Opiod Risk Tool Opiod Risk Tool Completed Date 05/10/2022 04/04/2023 Comments 3 Urine Drug Screen Questionnaire URINE DRUG SCREEN Completed Date 07/18/2023 MEDICATION NAME TRAMADOL STRENGTH 50 LAST FILL DATE 01/28/2023 DATE LAST DOSE TAKEN 07/16/2023 (1800) QUANTITY FILLED 45 QUANTITY REMAINING 4 (All drug screens are appropriate unless indicated otherwise) Notable Events During Course of Treatment: N/A Treatment History: PAIN PROCEDURES: DATE PROCEDURE IMPROVEMENT 08/09/2022 Bilat SI Joint 85% (01/21/2023 ) 02/01/2022 Caudal CHAZ 70% x 7 months 11/26/2021 Bilat SI Joint 85% x nearly 6 months 04/07/2021 Bilat SI Joint 90% x 6 months Data Reviewed Today: Allergies: ALLERGIES Allergen Reactions Aspirin Shortness of Breath Lisinopril Swelling Latex Rash Penicillins Hives, Rash Sulfamethoxazole Hives Trileptal [Oxcarbaz* Other: See Comments Balance Problems after taking for a few days Social History Tobacco Use Smoking status: Former Types: Cigarettes Smokeless tobacco: Never Vaping Use Vaping Use: Never used Substance Use Topics Alcohol use: Never Drug use: Never 07/11/2023 07/13/2023 INTAKE PAIN ASSESSMENT Are you having pain associated with your visit today? Yes, Provider notified Yes, Provider notified Pain Scales Verbal (Numeric Rating or Visual Analog Scale) Pain Level 5 5 4 Pain Location Knee-Right Knee-Right Description Aching;Sore Aching Duration Amount of Time 30 Duration Units Days Weeks Frequency Continuous Continuous Intervention/Comfort measure Medication;Heat;Pillow support;Positioning Comments The pain is primarily at the back of my knee. Compliance: PDMP website checked and validated on 07/18/2023 by Ashley Fleming APRN.MULTIPLE SLIDE OPERATOR All prescriptions have been APPROPRIATELY filled. No suspicious activity was identified. 03/12/2022 05/10/2022 07/09/2022 09/10/2022 01/21/2023 04/04/2023 07/18/2023 AG SPINE COMBINATION Questionnaire URINE DRUG SCREEN URINE DRUG SCREEN URINE DRUG SCREEN URINE DRUG SCREEN URINE DRUG SCREEN URINE DRUG SCREEN URINE DRUG SCREEN Completed Date 03/12/2022 05/10/2022 07/09/2022 09/10/2022 01/21/2023 04/04/2023 07/18/2023 Comments phenobarbitol is a metobolite of her Rx Primidone, her UDS was appropriately postive for this Questionnaire NA/OIC NA/OIC NA/OIC Completed Date 03/12/2022 09/10/2022 01/21/2023 Comments Monitored Medication Agreement - signed Questionnaire Opiod Risk Tool Opiod Risk Tool Completed Date 05/10/2022 04/04/2023 Comments 3 (All drug screens are appropriate unless indicated otherwise) Risk Assessment: ISA-7: 11/19/2022 ISA - 7 SCORES Score 0 (0-4) minimal anxiety, (5-9) mild anxiety, (10-14) moderate anxiety, (15-21) severe anxiety PHQ-9: 04/08/2021 02/15/2022 PHQ-9 Score 0 3 (0-4) minimal depression, (5-9) mild depression, (10-14) moderate depression, (15-19) moderately severe depression, (20-27) severe depression Diagnostic Studies: Relevant Imaging: MRI Spine Report MRI CERVICAL SPINE WO IVCON Exam End: 08/25/2022 3:08 PM (Final result) Narrative: * * *Final Report* * * DATE OF EXAM: Aug 25 2022 3:08PM Cynthia Santiago7 - MRI CERVICAL SPINE WO IVCON / PROCEDURE REASON: multiple diagnoses * * * * Physician Interpretation * * * * EXAMINATION: MRI CERVICAL SPINE WO IVCON CLINICAL HISTORY: Spondylolysis of cervical region. Spinal stenosis of cervical region . TECHNIQUE: Routine cervical spine MR protocol without gadolinium. MQ: [id number] COMPARISON: Cervical spine radiographs 07/30/2022 RESULT: Counting reference: Craniocervical junction. Anatomic Variants: None. Localizer images: No additional findings. Alignment: There is straightening of normal cervical lordosis due to spondylolisthesis. There is mild retrolisthesis of C3 on C4 and C6 on C7. Craniocervical junction: Craniocervical junction is normal. Cord: The visualized cord is within normal limits of signal intensity and morphology. Bone marrow signal/fracture: No evidence of pathologic marrow infiltration. No evidence of prior fracture. There is moderate disc space height loss at C5-C6 and C6-C7. There are Modic type II degenerative endplate changes at C5-C6 and C6-C7 with vertebral body osteophyte formation. Cervical soft tissues: The paraspinal soft tissues are within normal limits. C2-C3: Canal and foramina are patent. C3-C4: Disc osteophyte complex effaces the ventral CSF contacting the ventral cord and along with ligamentum flavum thickening causes moderate stenosis of the spinal canal. There is severe left and moderate right neural foraminal narrowing due to uncovertebral and facet joint degenerative change. C4-C5: Disc osteophyte complex causes mild narrowing of the spinal canal. There is severe narrowing of both neural foramina due to uncovertebral arthropathy. C5-C6: Disc osteophyte complex impresses on the ventral thecal sac but without narrowing of the spinal canal. There is severe left and moderate right neural foraminal narrowing due to uncovertebral arthropathy. C6-C7: Disc osteophyte complex impresses on the ventral thecal sac with minimal narrowing of the spinal canal. There is severe left and moderate right neural foraminal narrowing due to uncovertebral arthropathy. C7-T1: Canal and foramina are patent. Impression: IMPRESSION: 1. Multilevel degenerative cervical spondylosis with straightening of cervical lordosis. 2. At C3-C4 there is moderate stenosis of the spinal canal and severe left neural foraminal stenosis. 3. There is multilevel high-grade neural foraminal stenosis as detailed. Anatomic Variant: None. Assume 7 cervical vertebrae with counting from the craniocervical junction. Can Machine Operator: [facility] Transcribe Date/Time: Aug 26 2022 3:21P Dictated by : TREVOR MELÉNDEZ MD This examination was interpreted and the report reviewed and electronically signed by: TREVOR MELÉNDEZ MD on Aug 26 2022 3:32PM EST Electrodiagnostic Study (EMG): None Recent Labs: Creatinine Date Value Ref Range Status 02/23/2023 0.74 0.58 - 0.96 mg/dL Final No results found for: EGFR Glucose, Point of Care Date Value Ref Range Status 01/17/2023 136 (A) 74 - 99 mg/dL Final Comment: Location:[facility], [address], [facility] The Accu-Chek Inform II glucose meter has not been approved for testing on patients receiving intensive medical intervention or therapy and results from this point of care glucose test should not be used for patient management decisions in these cases. Inaccurate results may also occur from other interfering factors, such as N-acetylcysteine (blood concentrations of greater than 5mg/dL), galactose, extremes of hematocrit (<10 or >65), or high doses of ascorbic acid (vitamin C) greater than 3mg/dL. Consider alternate testing mechanisms (e.g. core lab, blood gas instrument) in the above situations. Current Medications, Past Medical History, Past Surgical History, Family History, Social History and Review of Systems: On today's date, noted above, I have confirmed and edited as necessary, the PFSH and ROS obtained by others. Physical Exam: 07/18/23 1431 Pulse: 63 Resp: 18 SpO2: 100% Physical Exam Constitutional: Appearance: Normal appearance. HENT: Head: Normocephalic. Right Ear: External ear normal. Left Ear: External ear normal. Eyes: Extraocular Movements: Extraocular movements intact. Cardiovascular: Pulses: Normal pulses. Pulmonary: Effort: Pulmonary effort is normal. Musculoskeletal: BLE SLR negative- seated position BLE strength 5/5 and symmetrical BLE sensation intact and symmetrical BLE patellar reflexes intact difficult to elicit Tenderness across L1- C7 paraspinal musculature Skin: General: Skin is warm and dry. Capillary Refill: Capillary refill takes 2 to 3 seconds. Neurological: General: No focal deficit present. Mental Status: He is alert and oriented to person, place, and time. Psychiatric: Mood and Affect: Mood normal. Behavior: Behavior normal. IMPRESSION: 78 year old female presents with with significant past medical history for low back decompressive surgeries x 3, scoliosis, who presents with complaint(s) of ongoing axial low back pain, lower limb radicular symptoms due to spinal stenosis. Has been established with pain management in [place], just moved to [place]. Stable on very low doses of medication. Good relief of buttock pain following SI Joint injections, typically having 6 months relief. Further relief of lower limb pain after Caudal injections. Continues to have axial low back pain, but not severe at this time. Left-sided neck pain due to underlying facet osteoarthritis with myofascial overlay, stenosis noted on MRI. She has seen Neurosurgery, elected non-operative management. She is not interested in cervical spine injections at this time. Diagnoses: (Z02.89) Pain medication agreement signed (primary encounter diagnosis) (Z79.891) Encounter for long-term use of opiate analgesic (M96.1) Post laminectomy syndrome (M47.816) Lumbar spondylosis An opioid agreement was reviewed and signed with the patient. A copy was given to the patient. [place] was reviewed and was consistent with the history. A drug screen pecimen was obtained for toxicology screening. Adequate analgesia, ADLS's maintained, no adverse effects, no aberrant behaviors noted The patient and I discussed the nature of this medication and its side effects. We discussed tolerance, physical dependence, psychological dependence, addiction and opioid-induced hyperalgesia. We discussed the need for safe storage of medication We discussed the potential need to wean from this medication. We discussed the availability of programs that can help with this process if necessary. We discussed safety issues related to opioids including safe storage. We discussed the fact that the patient should not drive an automobile or operate heavy machinery while taking this medication. Patient reports they are happy with current treatment care path. For this reason I will refill the patient's opioids today for 90 days. The patient continues to see benefit and improvement in their quality of life and ability to maintain ADLs. Patient advised that the medications may cause impairment of judgement while driving or operating machinery. We will re-evaluate the opiate regimen in 90 days at an office visit to determine efficacy of treatment to ensure that we are using the lowest dose for maximum benefit. Examined patient and confirmed feliz findings on history and examination and ROS as noted above. Some elements of my note were copied from 04/04/23 , which have been updated where appropriate and reflect my current medical decision making for today at 07/18/23. PLAN: Akila De Los Santos would benefit from the following to reach personal goals for decreasing pain, improving function and work participation, and/or improving quality of life: Medications: Requested Prescriptions Pending Prescriptions Disp Refills pregabalin (LYRICA) 50 mg capsule 90 capsule 5 Sig: Take one pill at night for one week, then add one pill in the morning for one week, then take on pill 3 times per day thereafter traMADol (ULTRAM) 50 mg tablet 45 tablet 0 Sig: Take 1-2 tablets per day as needed for pain. Use sparingly Do not start before July 22, 2023. UDS last visit was reviewed and was consistent. UDS, NAOIC, AMALIA today Narcan per protocol Interventional Procedures: None Studies: URINE DRUG SCREEN (IN OFFICE TODAY) Functional Restorationism: NONE Referrals: No additional considerations at present Follow-up: 3 months Depending on response to the above plan, consider: Repeat SI Joint injection; ; SI Joint RFA (prefers to avoid RFA at this time); MBB/RFA C spine or L-spine; Repeat Caudal Epidural Steroid Injection Compliance and Clinic Policies Reviewed and/or Discussed Today: None Attribution: In addition to reviewing the information noted above, some elements copied from my most recent clinical note(s), including the physical exam (completed in entirety today), and the impression and plan sections, have been updated where appropriate. All reflect current medical decision making from today's date. Ashley Fleming APRN.[facility] Review of Systems Constitutional: Positive for activity change. Negative for chills, fever and unexpected weight change. Genitourinary: Negative for difficulty urinating. Musculoskeletal: Positive for arthralgias, back pain, gait problem, joint swelling, neck pain and neck stiffness. Negative for myalgias. Neurological: Positive for weakness. Negative for numbness and headaches. Psychiatric/Behavioral: Positive for sleep disturbance. Negative for dysphoric mood and suicidal ideas. The patient is not nervous/anxious. documented in this encounter [facility] 07-13-2023 History of Present illness Narrative Images from the original note were not included. Betty Bueno M.D. [facility] [address] [place] [address] [facility] [address] [place], [place] [address] Visit Date: July 13, 2023 Name: Akila De Los Santos Date of : 1945 MRN/E #: [id number] Chief Complaint: Right Knee Pain Subjective Akila De Los Santos is a 78 year old female here with the following complaint(s): knee pain HPI 78yo W presenting w/ c/o R knee pain. Last time was here she was having pain in back of knee. Since then, pain has worsened after pt did some exercise. Has also noted a little swelling. No fall trauma. Today 4/10. Gets up to 10/10. Daily pain. Hurts to lay knee on bed. R knee. L knee ok. Started w/ walking from car to hospital. April. Using Biofreeze, aspercreme. Helped. Review of Systems Respiratory: Negative for chest tightness and shortness of breath. Cardiovascular: Negative for chest pain. Musculoskeletal: Positive for arthralgias and joint swelling. Social History Tobacco Use Smoking status: Former Types: Cigarettes Smokeless tobacco: Never Vaping Use Vaping Use: Never used Substance Use Topics Alcohol use: Never Drug use: Never ALLERGIES Allergen Reactions Aspirin Shortness of Breath Lisinopril Swelling Latex Rash Penicillins Hives, Rash Sulfamethoxazole Hives Trileptal [Oxcarbaz* Other: See Comments Balance Problems after taking for a few days Current Outpatient Medications Medication Sig rosuvastatin (CRESTOR) 10 mg tablet take 1 tablet by mouth once daily at bedtime solifenacin (VESICARE) 5 mg tablet Take 1 tablet by mouth once daily valACYclovir (VALTREX) 1 gram tablet Take 1 tablet by mouth once daily baclofen 5 mg tablet take 1 tablet by mouth three times daily primidone (MYSOLINE) 50 mg tablet take 1 tablet by mouth once daily at bedtime BREO ELLIPTA 200-25 mcg/dose inhaler INHALE 1 PUFF BY MOUTH ONCE DAILY DIRECTED montelukast (SINGULAIR) 10 mg tablet take 1 tablet by mouth once daily at bedtime losartan (COZAAR) 50 mg tablet Take 1 tablet by mouth once daily. potassium chloride 20 mEq TbER Take 2 tablets by mouth twice daily citalopram (CELEXA) 20 mg tablet Take 1 tablet by mouth once daily Lancets (ACCU-CHEK SOFTCLIX LANCETS) lancets USE DIRECTED 1 ONCE DAILY NEEDED ascorbic acid, vitamin C, (VITAMIN C) 500 mg tablet 1 tab(s) orally once a day for 30 day(s) betamethasone dipropionate 0.05 % ointment Apply to affected area twice daily. blood sugar diagnostic (ACCU-CHEK KAYCEE PLUS TEST STRP) test strip Use as instructed to check blood sugar once daily as needed. albuterol HFA (VENTOLIN HFA) 90 mcg/actuation inhaler Inhale 2 Puffs as instructed every 4 hours as needed for wheezing/shortness of breath. indapamide (LOZOL) 2.5 mg tablet Take 1 tablet by mouth once daily. amLODIPine (NORVASC) 10 mg tablet Take 1 tablet by mouth once daily. pregabalin (LYRICA) 50 mg capsule Take one pill at night for one week, then add one pill in the morning for one week, then take on pill 3 times per day thereafter [START ON 07/22/2023] traMADol (ULTRAM) 50 mg tablet Take 1-2 tablets per day as needed for pain. Use sparingly Do not start before July 22, 2023. No current facility-administered medications for this visit. I have confirmed and edited as necessary the chief complaint, medications, past medical, family and social histories. Objective 07/13/23 1318 07/13/23 1440 BP: 152/73 126/60 Temp: 36.2 C (97.2 F) Weight: 151 lb (68.5 kg) Height: 5' 1 (1.549 m) Body mass index is 28.53 kg/m . Physical Exam Vitals and nursing note reviewed. Constitutional: Appearance: She is not ill-appearing. HENT: Head: Normocephalic and atraumatic. Right Ear: External ear normal. Left Ear: External ear normal. Nose: Nose normal. Mouth/Throat: Pharynx: No oropharyngeal exudate. Eyes: General: No scleral icterus. Conjunctiva/sclera: Conjunctivae normal. Pupils: Pupils are equal, round, and reactive to light. Cardiovascular: Rate and Rhythm: Normal rate and regular rhythm. Heart sounds: Normal heart sounds. No murmur heard. No friction rub. No gallop. Pulmonary: Effort: Pulmonary effort is normal. No respiratory distress. Breath sounds: Normal breath sounds. No wheezing or rales. Abdominal: General: Bowel sounds are normal. There is no distension. Palpations: Abdomen is soft. Tenderness: There is no abdominal tenderness. There is no guarding or rebound. Musculoskeletal: General: No deformity. Comments: Minimal swelling of R knee. Very limited flexion 2/2 pain/discomfort. Neg ant/posterior drawer tests. Neg Mikal's. Bethany's not well performed 2/2 pain and discomfort. Skin: General: Skin is warm and dry. Coloration: Skin is not pale. Findings: No erythema or rash. Neurological: Mental Status: She is alert. Psychiatric: Mood and Affect: Affect normal. Results for orders placed or performed in visit on 06/29/23 SPIROMETRY - BASELINE AND POST DILATOR Result Value Ref Range FVC PRE (L) 1.70 L FVC POST (L) 1.72 L FEV1 PRE (L) 1.32 L FEV1_POST (L) 1.36 L FEV1/FVC PRE (%) 78 % FEV1/FVC POST (%) 79 % [id number]% PRE (L/S) 1.17 L/S [id number]% POST (L/S) 1.28 L/S PEF PRE (L/S) 4.43 L/S PEF POST (L/S) 4.64 L/S Assessment / Plan Akila was seen today for right knee pain. Diagnoses and all orders for this visit: Acute pain of right knee - XR KNEE GENERAL 4V AP BOTH/PA BOTH/LAT/MERC RIGHT; Future - XR KNEE SURVEY ARTHRITIS 1V AP BILATERAL; Future - CONSULT TO PHYSICAL THERAPY; Future No follow-ups on file. Discussed the above with the patient using shared decision-making. The patient is in agreement with the diagnostic and treatment plans. Provider: Betty Bueno MD Date: July 13, 2023 Time: 2:00 PM documented in this encounter [facility] 06-27-2023 Miscellaneous Notes Pharmacy escripted requesting the following refill Refill(s) Requested: Requested Prescriptions Pending Prescriptions Disp Refills baclofen 5 mg tablet [Pharmacy Med Name: Baclofen 5 MG Oral Tablet] 90 tablet 0 Sig: take 1 tablet by mouth three times daily ALLERGIES Allergen Reactions Aspirin Shortness of Breath Lisinopril Swelling Latex Rash Penicillins Hives, Rash Sulfamethoxazole Hives Trileptal [Oxcarbaz* Other: See Comments Balance Problems after taking for a few days (home) [phone] (cell) Last Office Visit Date: 05/30/2023 Last [facility] Visit: 12/07/2022 Future Appointment: Visit date not found The patients preferred pharmacy has been captured for this encounter? yes Request is for script(s) to be escript to pharmacy called in to pharmacy. Juli Atkinson LPN documented in this encounter [facility] 06-27-2023 Miscellaneous Notes Pharmacy escripted requesting the following refill Refill(s) Requested: Requested Prescriptions Pending Prescriptions Disp Refills solifenacin (VESICARE) 5 mg tablet [Pharmacy Med Name: Solifenacin Succinate 5 MG Oral Tablet] 90 tablet 0 Sig: Take 1 tablet by mouth once daily valACYclovir (VALTREX) 1 gram tablet [Pharmacy Med Name: valACYclovir HCl 1 GM Oral Tablet] 90 tablet 0 Sig: Take 1 tablet by mouth once daily ALLERGIES Allergen Reactions Aspirin Shortness of Breath Lisinopril Swelling Latex Rash Penicillins Hives, Rash Sulfamethoxazole Hives Trileptal [Oxcarbaz* Other: See Comments Balance Problems after taking for a few days (home) [phone] (cell) Last Office Visit Date: 05/30/2023 Last Distance Health Visit: 12/07/2022 Future Appointment: 06/26/2023 The patients preferred pharmacy has been captured for this encounter? yes Request is for script(s) to be escript to pharmacy. Juli Atkinson LPN documented in this encounter [facility] 05-30-2023 History of Present illness Narrative Images from the original note were not included. Betty Bueno M.D. [facility] [address] [place] [address] [facility] [address] [place] [address] Visit Date: May 30, 2023 Name: Akila De Los Santos Date of : 1945 MRN/E #: [id number] Chief Complaint: No chief complaint on file. Subjective Akila De Los Santos is a 78 year old woman w/ MMP including DMII, HTN, mixed incontinence and chronic pain who is here today for follow up. The history is provided by the patient. Hypertension The problem is controlled. Pertinent negatives include no anxiety, blurred vision, chest pain, headaches, malaise/fatigue, palpitations, peripheral edema or shortness of breath. (Bothers her to drive at night) Diabetes She has type 2 diabetes mellitus. Her disease course has been stable. Pertinent negatives for hypoglycemia include no headaches. Pertinent negatives for diabetes include no blurred vision and no chest pain. Doxazosin Hemoglobin A1C (%) Date Value 12/16/2022 7.6 03/23/2022 8.4 Hemoglobin A1C (POCT) (%) Date Value 05/30/2023 7.3 07/26/2022 7.7 08/28/2021 7.1 02/13/2021 6.2 Asthma: stable. No issues Depression/anxiety: stable. No issues Functional tremor: saw Neuro Chronic pain: sees pain mgt Oxycarbazepine side effects: stumbling, unsteady on feet. Afraid of falling. Primidone- tremor. Comes and goes. Not sure if working. Wants to take a break from the medication. OAB- under control Breathing: had a cold recently. Wheezing. When not sick doesn't have to use. Review of Systems Constitutional: Negative for malaise/fatigue. Eyes: Negative for blurred vision. Respiratory: Negative for shortness of breath. Cardiovascular: Negative for chest pain and palpitations. Neurological: Negative for headaches. Social History Tobacco Use Smoking status: Former Types: Cigarettes Smokeless tobacco: Never Vaping Use Vaping Use: Never used Substance Use Topics Alcohol use: Never Drug use: Never ALLERGIES Allergen Reactions Aspirin Shortness of Breath Lisinopril Swelling Latex Rash Penicillins Hives, Rash Sulfamethoxazole Hives Trileptal [Oxcarbaz* Other: See Comments Balance Problems after taking for a few days Current Outpatient Medications Medication Sig potassium chloride 20 mEq TbER Take 2 tablets by mouth twice daily citalopram (CELEXA) 20 mg tablet Take 1 tablet by mouth once daily valACYclovir (VALTREX) 1 gram tablet Take 1 tablet by mouth once daily Lancets (ACCU-CHEK SOFTCLIX LANCETS) lancets USE DIRECTED 1 ONCE DAILY NEEDED pregabalin (LYRICA) 50 mg capsule Take one pill at night for one week, then add one pill in the morning for one week, then take on pill 3 times per day thereafter ascorbic acid, vitamin C, (VITAMIN C) 500 mg tablet 1 tab(s) orally once a day for 30 day(s) indapamide (LOZOL) 2.5 mg tablet Take 1 tablet by mouth once daily solifenacin (VESICARE) 5 mg tablet Take 1 tablet by mouth once daily. amLODIPine (NORVASC) 10 mg tablet Take 1 tablet by mouth once daily betamethasone dipropionate 0.05 % ointment Apply to affected area twice daily. blood sugar diagnostic (ACCU-CHEK KAYCEE PLUS TEST STRP) test strip Use as instructed to check blood sugar once daily as needed. rosuvastatin (CRESTOR) 10 mg tablet TAKE 1 TABLET BY MOUTH ONCE DAILY AT BEDTIME albuterol HFA (VENTOLIN HFA) 90 mcg/actuation inhaler Inhale 2 Puffs as instructed every 4 hours as needed for wheezing/shortness of breath. primidone (MYSOLINE) 50 mg tablet take 1 tablet by mouth once daily at bedtime BREO ELLIPTA 200-25 mcg/dose inhaler INHALE 1 PUFF BY MOUTH ONCE DAILY DIRECTED montelukast (SINGULAIR) 10 mg tablet take 1 tablet by mouth once daily at bedtime losartan (COZAAR) 50 mg tablet Take 1 tablet by mouth once daily. baclofen 5 mg tablet Take 1 tablet by mouth three times a day. No current facility-administered medications for this visit. I have confirmed and edited as necessary the chief complaint, medications, past medical, family and social histories. Objective 05/30/23 1444 BP: 120/69 Temp: 36.6 C (97.8 F) Weight: 154 lb (69.9 kg) Height: 5' 1 (1.549 m) Body mass index is 29.1 kg/m . Physical Exam Vitals and nursing note reviewed. Constitutional: General: She is not in acute distress. HENT: Head: Normocephalic and atraumatic. Right Ear: Tympanic membrane and external ear normal. Left Ear: Tympanic membrane and external ear normal. Nose: Nose normal. Mouth/Throat: Pharynx: No oropharyngeal exudate. Eyes: General: No scleral icterus. Conjunctiva/sclera: Conjunctivae normal. Pupils: Pupils are equal, round, and reactive to light. Cardiovascular: Rate and Rhythm: Normal rate and regular rhythm. Heart sounds: Normal heart sounds. No murmur heard. No friction rub. No gallop. Pulmonary: Effort: Pulmonary effort is normal. No respiratory distress. Breath sounds: Normal breath sounds. No wheezing or rales. Abdominal: General: Bowel sounds are normal. There is no distension. Palpations: Abdomen is soft. Tenderness: There is no abdominal tenderness. There is no guarding or rebound. Musculoskeletal: General: Deformity (thoracic kyphosis) present. No tenderness. Normal range of motion. Skin: General: Skin is warm and dry. Coloration: Skin is not pale. Findings: No erythema or rash. Neurological: Mental Status: She is alert. Psychiatric: Mood and Affect: Affect normal. Feet:Shoes and socks removed, Are you having foot pain no, No deformities, ulcers, calluses, trace DP distal pulses, sensitive to 10 gm monofilament, and vibratory perception normal Results for orders placed or performed in visit on 05/30/23 HEMOGLOBIN A1C (POC) Result Value Ref Range Hemoglobin A1C (POCT) 7.3 (A) 4.3 - 5.6 % Assessment / Plan Akila was seen today for diabetes. Diagnoses and all orders for this visit: Type 2 diabetes mellitus 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) - ALBUMIN/CREAT RATIO RND UR; Future Hypertension, essential Neck pain OAB (overactive bladder) Essential tremor Moderate persistent asthma, uncomplicated - SPIROMETRY - BASELINE AND POST DILATOR; Future Trigeminal neuralgia - baclofen 5 mg tablet; Take 1 tablet by mouth three times a day. Other orders - DEPRESSION SCREENING/ASSESSMENT - HEMOGLOBIN A1C (POC) - losartan (COZAAR) 50 mg tablet; Take 1 tablet by mouth once daily. ASSESSMENT/PLAN: 1. Type 2 diabetes mellitus 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) - ICD9: 250.00, ICD10: E11.9 (primary diagnosis) - Controlled for age - Continue current medications - ALBUMIN/CREAT RATIO RND UR 2. Hypertension, essential - ICD9: 401.9, ICD10: I10 - Controlled - Recommend home blood pressure monitoring, to bring results to next visit - Encouraged sodium restriction, DASH or Mediterranean diet - Recommend regular aerobic exercise 3. Neck pain - ICD9: 723.1, ICD10: M54.2 - following w/ pain mgt 4. OAB (overactive bladder) - ICD9: 596.51, ICD10: N32.81 -continue vesicare 5. Essential tremor - ICD9: 333.1, ICD10: G25.0 - functional tremor in upper extremities. Trial off primidone 6. Moderate persistent asthma, uncomplicated - ICD9: 493.90, ICD10: J45.40 - Moderate persistent asthma stable - Avoidance of triggers recommended - SPIROMETRY - BASELINE AND POST DILATOR 7. Trigeminal neuralgia - ICD9: 350.1, ICD10: G50.0 - stop oxycarbazepine - BACLOFEN 5 MG TABLET Betty Bueno MD No follow-ups on file. Discussed the above with the patient using shared decision-making. The patient is in agreement with the diagnostic and treatment plans. Provider: Betty Bueno MD Date: May 30, 2023 Time: 12:55 PM documented in this encounter [facility] 04-04-2023 Instructions Ashley Fleming APRN.MULTIPLE SLIDE OPERATOR - 04/04/2023 3:04 PM EST Ice and heat as tolerated Activity as tolerated documented in this encounter [facility] 04-04-2023 History of Present illness Narrative Review of Systems Constitutional: Negative for activity change, chills, fever and unexpected weight change. Genitourinary: Negative for difficulty urinating. Musculoskeletal: Positive for arthralgias, back pain, gait problem, joint swelling and neck pain. Negative for myalgias and neck stiffness. Neurological: Positive for weakness and headaches. Negative for numbness. Psychiatric/Behavioral: Negative for dysphoric mood, sleep disturbance and suicidal ideas. The patient is not nervous/anxious. Images from the original note were not included. [facility] [place] [facility] Name: Akila De Los Santos : 1945 Purpose: Follow-up Evaluation and refill Today's Date: 04/04/23 Last Visit: 01/21/23 Chief Complaint/Reason: Low back pain Akila De Los Santos is an established patient, returning today for continued evaluation and management of the chief complaint noted above. Today she reports very little pain in the center of her lumbar spine T12-L3 levels. Denies LOC of bowel and bladder, no saddle anesthesia, no BLE weakness, no recent falls. She takes Lyrica 50 mg TID without sedation, Tylenol 1-2 daily Interval History: Overall pain and functional disability: unchanged New Complaints: none She had 70% relief after Caudal CHAZ 02/01/2022, she reports minimal left lower limb pain since the injection until the past two weeks. She has been having pain in her limbs at night, heat helps a little bit. She has had 85% relief of her buttock pain after the SI Joint injections. Continues to have pain in the axial low back, but not severe. She reports she was very tired on the Neurontin. Lyrica has been much better. She saw Spine Surgery, had MRI C-spine (seen below), declined neck surgery, primarily having axial pain on the left side, does not radiate, limits her left lateral rotation. She is doing her neck exercises regularly from PT. States the current medication regimen is allowing for the completion of daily activities and increasing the overall quality of life. Denies any new or worsening side effects. She took Trileptal BID for trigeminal neuralgia pain, but she discontinued after several days due to balance problems. States the current medication regimen is allowing for the completion of daily activities and increasing the overall quality of life. Denies any new or worsening side effects. She is seeing Dr. Morfin for caregiver assisted living. Medications Prescribed: Started or modified: Lyrica 50mg TID Discontinued: Neurontin 600mg TID Maintained at current dosages: Tramadol 50mg 1-2 times a day Tylenol Arthritis Tolerating Medication: yes Medications helping improve ADL's and Self-care: yes Procedures Performed: DATE PROCEDURE IMPROVEMENT 01/17/2023 Caudal CHAZ 100% (01/21/2023 ) 10/06/2022 Caudal CHAZ 90% x 2 months 08/09/2022 Bilat SI Joint 85% (01/21/2023 ) Therapies Attended: Chiropractor 10/13/2022, 11/29/2022, 01/21/2023 Studies Obtained: MRI C-spine (relevant findings reported below) No question data found. Recall: 06/2021 - She reports periodic tremors in both hands. She reports that she had an Electrodiagnostic Study more than 15 years ago in the upper limbs, does not recall the results, is not interested in seeing Neurology. Current Status: AG SPINE COMBINATION 11/04/2021 01/05/2022 03/12/2022 05/10/2022 07/09/2022 09/10/2022 01/21/2023 Questionnaire URINE DRUG SCREEN URINE DRUG SCREEN URINE DRUG SCREEN URINE DRUG SCREEN URINE DRUG SCREEN URINE DRUG SCREEN URINE DRUG SCREEN Completed Date 11/04/2021 01/05/2022 03/12/2022 05/10/2022 07/09/2022 09/10/2022 01/21/2023 Comments - phenobarbitol is a metobolite of her Rx Primidone, her UDS was appropriately postive for this - phenobarbitol is a metobolite of her Rx Primidone, her UDS was appropriately postive for this - - - Questionnaire - - NA/OIC - - NA/OIC NA/OIC Completed Date - - 03/12/2022 - - 09/10/2022 01/21/2023 Comments - - - - - Monitored Medication Agreement - signed - Questionnaire - - - Opiod Risk Tool - - - Completed Date - - - 05/10/2022 - - - Comments - - - 3 - - - INTAKE PAIN ASSESSMENT 01/21/2023 02/05/2023 Are you having pain associated with your visit today? Yes, Provider notified No Pain Scales Verbal (Numeric Rating or Visual Analog Scale) - Pain Level 8 - Pain Location Back-Lower - Description Aching - Duration Amount of Time - - Duration Units Unknown - Frequency Intermittent - Intervention/Comfort measure Reposition;Medication - Comments - - Pain Assessment - - Opioids: Tramadol 50mg 1-2 times a day #/mo: 45 # remaining: did not bring pill bottle Last Filled: 12/22/2022 Last taken: 2 days ago Pain Medications Taken to Date (for the chief complaint(s)): Membrane Stabilizers: Neurontin (Gabapentin), Lyrica NSAIDS: none Opioids: Tramadol Muscle Relaxants: none Topicals: Voltaren Gel, Aspercreme - helps Other Prescription or OTC Pain Medications: none Non-Pain Meds of Note: None Pain Procedures: DATE PROCEDURE IMPROVEMENT 08/09/2022 Bilat SI Joint 85% (01/21/2023 ) 02/01/2022 Caudal CHAZ 70% x 7 months 11/26/2021 Bilat SI Joint 85% x nearly 6 months 04/07/2021 Bilat SI Joint 90% x 6 months PAST MEDICAL HISTORY Diagnosis Date Asthma Diabetes mellitus (HCC) DJD (degenerative joint disease) Osteoarthritis of multiple joints PAD (peripheral artery disease) ([facility]) TIA (transient ischemic attack) Current Outpatient Medications on File Prior to Visit Medication Sig solifenacin (VESICARE) 5 mg tablet Take 1 tablet by mouth once daily. blood sugar diagnostic (ACCU-CHEK KAYCEE PLUS TEST STRP) test strip Use as instructed to check blood sugar once daily as needed. rosuvastatin (CRESTOR) 10 mg tablet TAKE 1 TABLET BY MOUTH ONCE DAILY AT BEDTIME Diaper,Brief, Adult,Disposable ([employer] S/M) Use as directed 3 times daily albuterol HFA (VENTOLIN HFA) 90 mcg/actuation inhaler Inhale 2 Puffs as instructed every 4 hours as needed for wheezing/shortness of breath. indapamide (LOZOL) 2.5 mg tablet Take 1 tablet by mouth once daily. gabapentin (NEURONTIN) 600 mg tablet Take 1 tablet by mouth three times daily for 180 days. amLODIPine (NORVASC) 10 mg tablet Take 1 tablet by mouth once daily traMADol (ULTRAM) 50 mg tablet Take 1-2 tablets per day as needed for pain. Use sparingly montelukast (SINGULAIR) 10 mg tablet TAKE 1 TABLET BY MOUTH ONCE DAILY AT BEDTIME citalopram (CELEXA) 20 mg tablet Take 1 tablet by mouth once daily BREO ELLIPTA 200-25 mcg/dose inhaler INHALE 1 PUFF BY MOUTH ONCE DAILY DIRECTED potassium chloride 20 mEq TbER Take 2 tablets by mouth twice daily. valACYclovir (VALTREX) 1 gram Take 1 tablet by mouth once daily doxazosin (CARDURA) 4 mg tablet Take 1 tablet by mouth once daily. primidone (MYSOLINE) 50 mg tablet Take 2 tablets by mouth daily at bedtime. (Patient taking differently: Take 100 mg by mouth daily at bedtime. 1 tablet) Lancets lancets Use as instructed to check blood sugar once daily as needed Current Facility-Administered Medications on File Prior to Visit Medication perflutren lipid microspheres 1.3 mL in NaCl (PF) 0.9% 10 mL injection (DEFINITY) sodium chloride 0.9 % (flush) 10 mL (BD POSIFLUSH) ALLERGIES Allergen Reactions Aspirin Shortness of Breath Lisinopril Swelling Latex Rash Penicillins Hives, Rash Sulfamethoxazole Hives Trileptal [Oxcarbaz* Other: See Comments Balance Problems after taking for a few days Data Reviewed: Reviewed personally on today's date Compliance: PDMP website checked and validated. All prescriptions have been APPROPRIATELY filled. No suspicious activity was identified. On 04/03/2023 by Ashley Fleming APRN.MULTIPLE SLIDE OPERATOR Risk Assessment: ISA-7: ISA - 7 SCORES 11/19/2022 ISA-7 Score 0 (0-4) minimal anxiety, (5-9) mild anxiety, (10-14) moderate anxiety, (15-21) severe anxiety PHQ-9: PHQ-9 04/08/2021 02/15/2022 Score 0 3 (0-4) minimal depression, (5-9) mild depression, (10-14) moderate depression, (15-19) moderately severe depression, (20-27) severe depression Current Medications, Past Medical History, Past Surgical History, Family History, Social History and Review of Systems: On today's date, noted above, I have confirmed and edited as necessary, the PFSH and ROS obtained by others. Relevant Imaging MRI Cervical 08/2022 RESULT: Counting reference: Craniocervical junction. Anatomic Variants: None. Localizer images: No additional findings. Alignment: There is straightening of normal cervical lordosis due to spondylolisthesis. There is mild retrolisthesis of C3 on C4 and C6 on C7. Craniocervical junction: Craniocervical junction is normal. Cord: The visualized cord is within normal limits of signal intensity and morphology. Bone marrow signal/fracture: No evidence of pathologic marrow infiltration. No evidence of prior fracture. There is moderate disc space height loss at C5-C6 and C6-C7. There are Modic type II degenerative endplate changes at C5-C6 and C6-C7 with vertebral body osteophyte formation. Cervical soft tissues: The paraspinal soft tissues are within normal limits. C2-C3: Canal and foramina are patent. C3-C4: Disc osteophyte complex effaces the ventral CSF contacting the ventral cord and along with ligamentum flavum thickening causes moderate stenosis of the spinal canal. There is severe left and moderate right neural foraminal narrowing due to uncovertebral and facet joint degenerative change. C4-C5: Disc osteophyte complex causes mild narrowing of the spinal canal. There is severe narrowing of both neural foramina due to uncovertebral arthropathy. C5-C6: Disc osteophyte complex impresses on the ventral thecal sac but without narrowing of the spinal canal. There is severe left and moderate right neural foraminal narrowing due to uncovertebral arthropathy. C6-C7: Disc osteophyte complex impresses on the ventral thecal sac with minimal narrowing of the spinal canal. There is severe left and moderate right neural foraminal narrowing due to uncovertebral arthropathy. C7-T1: Canal and foramina are patent. IMPRESSION: 1. Multilevel degenerative cervical spondylosis with straightening of cervical lordosis. 2. At C3-C4 there is moderate stenosis of the spinal canal and severe left neural foraminal stenosis. 3. There is multilevel high-grade neural foraminal stenosis as detailed. Anatomic Variant: None. Assume 7 cervical vertebrae with counting from the craniocervical junction. X-ray Cervical 07/2022 Counting reference: Craniocervical junction. Anatomic Variants: None. Suboptimal positioning on the lateral and oblique films degrading assessment Minimal retrolisthesis C4/5, C6/7 Straightening of normal cervical lordosis Vertebral body heights grossly maintained Moderate and severe disc space narrowing with endplate osteophytes C3-C7 levels Anterior atlantodens interval maintained UVJ degenerative changes Multiple moderate left neuroforaminal narrowing most notably at C5/6, C6/7 Moderate right neuroforaminal narrowing C4/5 Multilevel degenerative changes, limitations as noted MRI Lumbar spine 09/2019 ([facility] - reviewed 06/26/2021 ) Neural Foraminal Stenosis: None Central Canal Stenosis: Iluc-do-hjhbvtoa at L4-5 Facet-Arthropathy: L1-2, L3-4, L4-5 Disc Protrusion/Bulge: Disc height Loss L1-2, Vertebrae: Minor irregularities inferior end plate T10, Schmorl's note superior L2 end plate with type 1 Modic changes Hardware: Metallic screws left L2 - S1, right L5-S1, Disc implant at L3-4 Alignment: Mild anterolisthesis L4-5 Other: L5 laminectomy MRI LEFT SHOULDER: IMPRESSION: Mild to moderate diffuse supraspinatus tendinosis along with a 2 mm interstitial partial tear at the midportion of the mid to distal tendon. MRI Spine Report MRI CERVICAL SPINE WO IVCON Exam End: 08/25/2022 3:08 PM (Final result) Narrative: * * *Final Report* * * DATE OF EXAM: Aug 25 2022 3:08PM [id number] - MRI CERVICAL SPINE WO IVCON / PROCEDURE REASON: multiple diagnoses * * * * Physician Interpretation * * * * EXAMINATION: MRI CERVICAL SPINE WO IVCON CLINICAL HISTORY: Spondylolysis of cervical region. Spinal stenosis of cervical region . TECHNIQUE: Routine cervical spine MR protocol without gadolinium. MQ: [id number] COMPARISON: Cervical spine radiographs 07/30/2022 RESULT: Counting reference: Craniocervical junction. Anatomic Variants: None. Localizer images: No additional findings. Alignment: There is straightening of normal cervical lordosis due to spondylolisthesis. There is mild retrolisthesis of C3 on C4 and C6 on C7. Craniocervical junction: Craniocervical junction is normal. Cord: The visualized cord is within normal limits of signal intensity and morphology. Bone marrow signal/fracture: No evidence of pathologic marrow infiltration. No evidence of prior fracture. There is moderate disc space height loss at C5-C6 and C6-C7. There are Modic type II degenerative endplate changes at C5-C6 and C6-C7 with vertebral body osteophyte formation. Cervical soft tissues: The paraspinal soft tissues are within normal limits. C2-C3: Canal and foramina are patent. C3-C4: Disc osteophyte complex effaces the ventral CSF contacting the ventral cord and along with ligamentum flavum thickening causes moderate stenosis of the spinal canal. There is severe left and moderate right neural foraminal narrowing due to uncovertebral and facet joint degenerative change. C4-C5: Disc osteophyte complex causes mild narrowing of the spinal canal. There is severe narrowing of both neural foramina due to uncovertebral arthropathy. C5-C6: Disc osteophyte complex impresses on the ventral thecal sac but without narrowing of the spinal canal. There is severe left and moderate right neural foraminal narrowing due to uncovertebral arthropathy. C6-C7: Disc osteophyte complex impresses on the ventral thecal sac with minimal narrowing of the spinal canal. There is severe left and moderate right neural foraminal narrowing due to uncovertebral arthropathy. C7-T1: Canal and foramina are patent. Impression: IMPRESSION: 1. Multilevel degenerative cervical spondylosis with straightening of cervical lordosis. 2. At C3-C4 there is moderate stenosis of the spinal canal and severe left neural foraminal stenosis. 3. There is multilevel high-grade neural foraminal stenosis as detailed. Anatomic Variant: None. Assume 7 cervical vertebrae with counting from the craniocervical junction. Can Machine Operator: PSCB Transcribe Date/Time: Aug 26 2022 3:21P Dictated by : TREVOR MELÉNDEZ MD This examination was interpreted and the report reviewed and electronically signed by: TREVOR MELÉNDEZ MD on Aug 26 2022 3:32PM EST Recent labs: Creatinine Date Value Ref Range Status 02/23/2023 0.74 0.58 - 0.96 mg/dL Final No results found for: GFR Glucose, Point of Care Date Value Ref Range Status 01/17/2023 136 (A) 74 - 99 mg/dL Final Comment: Location:[facility], [address], [place], [place], [address] The Accu-Chek Inform II glucose meter has not been approved for testing on patients receiving intensive medical intervention or therapy and results from this point of care glucose test should not be used for patient management decisions in these cases. Inaccurate results may also occur from other interfering factors, such as N-acetylcysteine (blood concentrations of greater than 5mg/dL), galactose, extremes of hematocrit (<10 or >65), or high doses of ascorbic acid (vitamin C) greater than 3mg/dL. Consider alternate testing mechanisms (e.g. core lab, blood gas instrument) in the above situations. Physical Exam: There were no vitals filed for this visit. Diagnoses: (Z79.891) Encounter for long-term use of opiate analgesic (primary encounter diagnosis) (M96.1) Post laminectomy syndrome (M54.16) Lumbar radiculopathy (M47.816) Lumbar spondylosis Patient reports they are happy with current treatment care path. For this reason I will refill the patient's opioids today for 60 days. The patient continues to see benefit and improvement in their quality of life and ability to maintain ADLs. Patient reports no significant nausea/vomiting/sedation/constipat ion on this regimen Patient advised that the medications may cause impairment of judgement while driving or operating machinery. Patient instructed on safe storage of medications We will re-evaluate the opiate regimen in 60 days at an office visit to determine efficacy of treatment to ensure that we are using the lowest dose for maximum benefit. oarrs was checked- no medication discrepancy or aberrations noted Adequate analgesia, ADLS's maintained, no adverse effects, no aberrant behaviors noted Examined patient and confirmed feliz findings on history and examination and ROS as noted above. Some elements of my note were copied from 02/08/23 , which have been updated where appropriate and reflect my current medical decision making for today at 04/04/23. Urine Drug Screen Questionnaire URINE DRUG SCREEN Completed Date 04/04/2023 Opioid Risk Tool Opiod Risk Tool Date Completed 04/04/2023 MEDICATION NAME Tramadol STRENGTH 50 LAST FILL DATE 01/28/2023 DATE LAST DOSE TAKEN 04/03/2023 QUANTITY FILLED 45 QUANTITY REMAINING 25 Impression & Plan: 78 year old female with significant past medical history for low back decompressive surgeries x 3, scoliosis, who presents with complaint(s) of ongoing axial low back pain, lower limb radicular symptoms due to spinal stenosis. Has been established with pain management in [place], just moved to [place]. Stable on very low doses of medication. Good relief of buttock pain following SI Joint injections, typically having 6 months relief. Further relief of lower limb pain after Caudal injections. Continues to have axial low back pain, but not severe at this time. Left-sided neck pain due to underlying facet osteoarthritis with myofascial overlay, stenosis noted on MRI. She has seen Neurosurgery, elected non-operative management. She is not interested in cervical spine injections at this time. Akila De Los Santos would benefit from the following to decrease pain, improve function and/or work participation, and improve quality of life: Interventional Procedure(s): none The risks, benefits, alternative treatment options and prognosis of the procedure were discussed and all of the patient's questions/concerns were addressed to the patient's satisfaction. The patient expressed understanding and gave verbal consent to proceed. Current Anti-Coagulant Use: No Medications: Lyrica 50mg TID - continue Tramadol 50mg, #45/qmonthly - she states not taking daily- she will call when she needs a refill. ISA-7/PHQ-2, and ORT: Reviewed Functional Restorationism: NONE Depending on response to the above plan, consider: Repeat SI Joint injection; ; SI Joint RFA (prefers to avoid RFA at this time); MBB/RFA C spine or L-spine; Repeat Caudal Epidural Steroid Injection Follow-up: 2 months ISAURA Ashley Fleming APRN.MULTIPLE SLIDE OPERATOR Pain Management [facility] documented in this encounter [facility] 03-21-2023 Miscellaneous Notes CFM Patient Anabel Grider MA documented in this encounter [facility] 02-08-2023 Instructions Nicole French PA-C - 02/08/2023 1:01 PM EDT [facility] What is it? Epidural steroid injections are injections of a steroid and anesthetic into the epidural space, which is in the area in the spinal canal that surrounds the spinal cord and nerve roots. There are three types of epidural injections used for pain control: caudal injections (through the opening in the tailbone), interlaminar injections (through the middle of the back) and transforaminal injections (along the opening in the side of the spinal canal where the nerve roots exit from). Why are these injections done in a diagnostic imaging setting? All spinal injections are done on an outpatient basis and are performed under fluoroscopic (x-ray) guidance in order to ensure proper placement and to maximize safety and comfort. What is the purpose of the epidural steroid injection? The injection allows us to place a steriod next to an inflamed nerve to attempt to reduce the inflammation and/or swelling of the nerves and make them ore resistant to mechanical irritation and improve their blood flow. This in turn may reduce pain, tingling and numbness caused by the irritated nerve. How long does the injection take? Typically the epidural injection takes a few minutes to perform, from five to ten minutes, but expect to spend 45 minutes to an hour at our facility due to preparation time before the procedure and evaluation time after the procedure. What are the risks of epidural steroid injections? With all injections there is a risk of infection, bleeding, temporary increase in pain and injury to the structures along the course of the needle or injury to other nerve branches by the radiofrequency probe. By using sterile equipment and technique we minimize the risk of infection. The risk of bleeding is minimized by discontinuation of blood thinners (this typically requires approval from the prescribing doctor) and non-steroidal anti-inflammatory medications (except Celebrex). By using x-ray guidance (fluroscopy) we minimize risk of injury to structures along the course of the needle. Nerve irritation is minimized by use of local anesthetic (1% lidocaine) to provide temporarily relief that typically wears off after 1 to 2 hours and the steroid medication can take 3 to 5 days to take full effect. Patients should expect increased soreness for a couple days after the procedure. What should I do after the procedure? You should have someone drive you home. We advise patients to take it easy for the remaining day and resume regular activities as tolerated the next day. Who should NOT have this injection? If you have an active infection, poorly controlled hypertension, diabetes, congestive heart failure, or are unable to stop taking blood thinners, you may not be a candidate for these types of injections. documented in this encounter [facility] 02-08-2023 History of Present illness Narrative VIRTUAL VISIT PROGRESS NOTE This is a virtual visit using [employer] Video Visit. It required patient-provider interaction for the medical decision making as documented below. Chief Complaint/Reason: low back pain Interval History: Pain score 0/10. Patient underwent the following injection with Dr. Cintron on 01/17/2023: Caudal CHAZ Patient reports 100% relief from the injection. Symptom relief lasted to date. During this time the patient was able to tolerate and participate in their ADL's with less pain and difficulty. Patient denies any adverse side effects such as nausea, vomiting, hives, fever, injection site redness/induration, headache, or new radicular symptoms. Continues work with Dr. Morfin and states this is going well. Review of Systems: Reviewed on today's date. Pertinent Positives: MSK - pain in the region being treated Neuro: No weakness or numbness in the region being treated Skin: Negative (No itching) Eyes: Negative (No blurred or double vision) Respiratory: Negative (No Cough, [id number], Dyspnea on exertion, wheezing) Cardiovascular: Negative (No Chest Pain, Tightness, Pressure, Palpitations) Gastrointestinal: Negative (No Abdominal pain, Nausea, Vomiting, Constipation, Diarrhea) Genitourinary: Negative (No dysuria) Hematologic: Negative (No bleeding, bruising) Endocrine: Negative (No hot/cold intolerance) Psychiatric: Negative (No change in mood/affect) PDMP website checked and validated on today's date by Nicole French PA-C. No suspicious activity was identified. REVIEWED IMAGING: None new to review PHYSICAL EXAMINATION: There were no vitals taken for this visit. VIDEO EXAM: (if completed, performed via video enabled technology) GENERAL: alert and appropriate, in no distress, well-hydrated, well nourished, and happy, smiling, interactive SKIN: no rash noted HEAD: normocephalic, no abnormality or lesion noted EYES: no injection and visual acuity is grossly normal EARS: hearing grossly normal NOSE: external nose normal without rhinorrhea OROPHARYNX: moist mucus membranes NECK: full ROM, no cervical LNs noted RESPIRATORY: breathing non-labored CHEST: equal chest rise with normal respiratory effort EXTREMITIES: Gross movements intact NEUROLOGIC: no obvious deficit Current Medications, Past Medical History, Past Surgical History, Family History, Social History and Review of Systems: On today's date, noted above, I have confirmed and edited as necessary, the PFSH and ROS obtained. ASSESSMENT: (M96.1) Post laminectomy syndrome (primary encounter diagnosis) (M54.16) Lumbar radiculopathy PLAN: Continue current medications Requested Prescriptions No prescriptions requested or ordered in this encounter Follow-up: Keep in person follow up appointment as scheduled Nicole French PA-C ([place]) Pain Management [facility] I spent a total of 20 minutes on the date of the service which included preparing to see the patient, [id number] patient care, completing clinical documentation, obtaining and/or reviewing separately obtained history, counseling and educating the patient/family/caregiver, and ordering medications, tests, or procedures. Patient Instructions [facility] What is it? Epidural steroid injections are injections of a steroid and anesthetic into the epidural space, which is in the area in the spinal canal that surrounds the spinal cord and nerve roots. There are three types of epidural injections used for pain control: caudal injections (through the opening in the tailbone), interlaminar injections (through the middle of the back) and transforaminal injections (along the opening in the side of the spinal canal where the nerve roots exit from). Why are these injections done in a diagnostic imaging setting? All spinal injections are done on an outpatient basis and are performed under fluoroscopic (x-ray) guidance in order to ensure proper placement and to maximize safety and comfort. What is the purpose of the epidural steroid injection? The injection allows us to place a steriod next to an inflamed nerve to attempt to reduce the inflammation and/or swelling of the nerves and make them ore resistant to mechanical irritation and improve their blood flow. This in turn may reduce pain, tingling and numbness caused by the irritated nerve. How long does the injection take? Typically the epidural injection takes a few minutes to perform, from five to ten minutes, but expect to spend 45 minutes to an hour at our facility due to preparation time before the procedure and evaluation time after the procedure. What are the risks of epidural steroid injections? With all injections there is a risk of infection, bleeding, temporary increase in pain and injury to the structures along the course of the needle or injury to other nerve branches by the radiofrequency probe. By using sterile equipment and technique we minimize the risk of infection. The risk of bleeding is minimized by discontinuation of blood thinners (this typically requires approval from the prescribing doctor) and non-steroidal anti-inflammatory medications (except Celebrex). By using x-ray guidance (fluroscopy) we minimize risk of injury to structures along the course of the needle. Nerve irritation is minimized by use of local anesthetic (1% lidocaine) to provide temporarily relief that typically wears off after 1 to 2 hours and the steroid medication can take 3 to 5 days to take full effect. Patients should expect increased soreness for a couple days after the procedure. What should I do after the procedure? You should have someone drive you home. We advise patients to take it easy for the remaining day and resume regular activities as tolerated the next day. Who should NOT have this injection? If you have an active infection, poorly controlled hypertension, diabetes, congestive heart failure, or are unable to stop taking blood thinners, you may not be a candidate for these types of injections. documented in this encounter [facility] 01-17-2023 Instructions Patricia Blandon LPN - 01/17/2023 2:35 PM EDT PROCEDURE DISCHARGE INSTRUCTIONS 01/17/2023 Akila De Los Santos 1945 Physician: Bekah Cintron MD Procedure: CAUDAL EPIDURAL INJECTION Post Procedure Instructions: If sedation not given, no driving for 3 hours after the procedure., Rest the day of the procedure., You may resume normal activities the day after the procedure, as tolerated., Pain should gradually subside over the next 2-3 weeks., Avoid movements that may aggravate pain., Apply cold compresses to injection site if needed., If medically acceptable, take over the counter anti-inflammatories such as ibuprofen or Aleve if needed for post procedure discomfort., No hot baths, hot tubs or hot compresses for 24 hours., and Increased pain the day after the procedure may occur. If you have any of the following signs or symptoms, please call our office at Fever and/or chills Swelling and/or drainage from injection site New pain that is different than your normal pain (other than soreness at the site of the procedure) Stiff neck Shortness of breath Severe increase in pain Motor dysfunctions, such as difficulty walking, bowel or bladder dysfunction and/or incontinence Headache that is severe, light sensitive or develops when changing positions (positional headache) Nausea and/or vomiting accompanied by headache that started 24-48 hours after the procedure If you have any emergent concerns, please call 911 or go to your local emergency room. Please also contact our office to let us know you will be seeking emergency care and why. documented in this encounter [facility] 01-17-2023 Nurse Note Order has been placed in the patient's chart with the following parameters for discharge from the physician: Patient is alert and oriented Vitals: Diastolic/Systolic +/- 20mmHg Respirations: 12-18 Pulse: 60-100 SpO2 is greater than or equal to 90% Patient has no nausea or vomiting Patient has no dizziness Pain level is +/- 2 from initial evaluation Dressing, dry and intact with no evidence of bleeding Criteria has been met, patient is okay to be discharged per the physician. Physician has gone in and evaluated the patient. Dressing dry and intact. No drainage noted. The patient denies nausea, numbness, tingling, weakness, shortness of breath, dizziness, or headache. Pain level 0/10. Vital signs within normal limits. Patient denied needing walked out by clinical staff and denied needing a wheelchair. Patient given discharge instructions and sent to transportation via ambulatory method. Patient left in good condition. Procedure to be performed: Caudal Epidural Steroid Injection Patient was wheeled on stretcher from pre op bay to procedure room and assisted onto the procedure tablePatient s procedure was performed in an [facility] Procedure room. Pause completed at each level by provider to verify correct level and laterality placement Pressure was applied to patient s injection site(s) and bleeding was minimal. Patient had no complaint of shortness of breath, dizziness, headache, numbness, tingling, weakness or complications from procedure. Patient was assisted from the procedure table onto the stretcher and wheeled into a post op bay. Patient was advised a clinician will be to obtain another set of vitals. Time Out: 1419 Confirmed patient name, date of , procedure site, laterality, and allergies Procedure Start: 1421 Procedure End: 1428 [employer] Lead's Name: TIVOLI Are you on a blood thinner: N If yes, is a hold required: N Last dose of blood thinner: N INR Result today: N Do you require a Lovenox bridge:N Are you a diabetic:[id number] Are you/or could you be : N Are you taking Xanax for the procedure: N Are you currently on a steroid? N Are you currently on an antibiotic: N Have you had a COVID-19 vaccine in the last 14 days Or are you scheduled to receive one? N documented in this encounter [facility] 01-17-2023 History of Present illness Narrative Review of Systems Constitutional: Negative for activity change, chills, fever and unexpected weight change. Genitourinary: Negative for difficulty urinating. Musculoskeletal: Positive for arthralgias, back pain, gait problem, joint swelling, myalgias, neck pain and neck stiffness. Neurological: Negative for weakness, numbness and headaches. Psychiatric/Behavioral: Negative for dysphoric mood, sleep disturbance and suicidal ideas. The patient is not nervous/anxious. [facility] Date: 01/17/2023 Patient name: Akila De Los Santos Physician performing procedure: Bekah Cintron M.D., M.B.A. Diagnosis: (M96.1) Post laminectomy syndrome (primary encounter diagnosis) Procedure: Epidural Steroid Injection - Caudal Approach under fluoroscopic guidance MIDLINE Injectate: A total of 10 ml volume was injected The injectate consisted of: 1 ml of Depo-medrol (40mg/cc), The remainder consisting of 0.5% Lidocaine Comments: Concordance Concordant pain was reproduced during administration of the injectate Improvement after today's procedure: as per nursing report HPI: Akila De Los Santos is an 77 year old FEMALE who presents today, in pain, for the procedure noted above. Review of Systems: Pertinent Positives: MSK: pain in the region being treated Neuro: no weakness or numbness in the region being treated Skin: Negative (No itching) Eyes: Negative (No blurred or double vision) Respiratory: Negative (No Cough, [id number], Dyspnea on exertion, wheezing) Cardiovascular: Negative (No Chest Pain, Tightness, Pressure, Palpitations) Gastrointestinal: Negative (No Abdominal pain, Nausea, Vomiting, Constipation, Diarrhea) Genitourinary: Negative (No dysuria) Hematologic: Negative (No bleeding, bruising) OB: is Denied or Not Applicable Endocrine: Negative (No hot/cold intolerance) Psychiatric: Negative (No depression, anxiety or suicidal ideation) PAST MEDICAL HISTORY Diagnosis Date Asthma Diabetes mellitus (HCC) DJD (degenerative joint disease) Osteoarthritis of multiple joints PAD (peripheral artery disease) (HCC) TIA (transient ischemic attack) PAST SURGICAL HISTORY Procedure Laterality Date CATARACT EXTRACTION HX Left 11/2016 CATARACT EXTRACTION HX Right 11/2018 TOTAL ABDOM HYSTERECTOMY FAMILY HISTORY Problem Relation Age of Onset Blindness Maternal Grandmother Social History Tobacco Use Smoking status: Former Types: Cigarettes Smokeless tobacco: Never Vaping Use Vaping Use: Never used Substance Use Topics Alcohol use: Never Drug use: Never Current Outpatient Medications on File Prior to Visit Medication Sig losartan (COZAAR) 25 mg tablet Take 1 tablet by mouth once daily. traMADol (ULTRAM) 50 mg tablet Take 1-2 tablets per day as needed for pain. Use sparingly valACYclovir (VALTREX) 1 gram Take 1 tablet by mouth once daily doxazosin (CARDURA) 4 mg tablet Take 1 tablet by mouth once daily ascorbic acid, vitamin C, (VITAMIN C) 500 mg tablet 1 tab(s) orally once a day for 30 day(s) indapamide (LOZOL) 2.5 mg tablet Take 1 tablet by mouth once daily solifenacin (VESICARE) 5 mg tablet Take 1 tablet by mouth once daily. amLODIPine (NORVASC) 10 mg tablet Take 1 tablet by mouth once daily primidone (MYSOLINE) 50 mg tablet Take 1 tablet by mouth daily at bedtime. pregabalin (LYRICA) 50 mg capsule Take one pill at night for one week, then add one pill in the morning for one week, then take on pill 3 times per day thereafter montelukast (SINGULAIR) 10 mg tablet TAKE 1 TABLET BY MOUTH ONCE DAILY AT BEDTIME citalopram (CELEXA) 20 mg tablet Take 1 tablet by mouth once daily betamethasone dipropionate 0.05 % ointment Apply to affected area twice daily. blood sugar diagnostic (ACCU-CHEK KAYCEE PLUS TEST STRP) test strip Use as instructed to check blood sugar once daily as needed. rosuvastatin (CRESTOR) 10 mg tablet TAKE 1 TABLET BY MOUTH ONCE DAILY AT BEDTIME albuterol HFA (VENTOLIN HFA) 90 mcg/actuation inhaler Inhale 2 Puffs as instructed every 4 hours as needed for wheezing/shortness of breath. BREO ELLIPTA 200-25 mcg/dose inhaler INHALE 1 PUFF BY MOUTH ONCE DAILY DIRECTED potassium chloride 20 mEq TbER Take 2 tablets by mouth twice daily. Lancets lancets Use as instructed to check blood sugar once daily as needed No current facility-administered medications on file prior to visit. Objective Exam: Vitals: As per nursing documentation Constitutional: Normal Appearance, Oriented to Time, Place and Person Head: No lacerations, no external signs of trauma Eyes: Conjunctiva clear. No discharge from the eyes Cardiovascular: Appears well-perfused Pulmonary: Non-labored respirations Abdominal: Non-distended Skin: No visible rashes or ecchymosis Psychiatric: Mood appropriate for given condition Neurological: Gross movements are limited by pain, but otherwise unremarkable Data Reviewed: Nursing note and vitals reviewed. Additional imaging reviewed as appropriate Assessment and Plan: As noted above [place] protocol documentation / Pre-Procedure Checklist: Consent: Obtained in writing prior to procedure I had a nice discussion with the patient today about their current pain and the pathology that could be causing it We discussed different treatment options, including risks, benefits and alternatives. We agreed to proceed as previously discussed, or the plan was modified in accordance with the comments noted above Unless stated otherwise in the procedure note, the risks include but are not limited to infection, allergic reaction, increased pain, lack of therapeutic benefit, steroid reaction, nerve damage, paralysis, stroke, epidural hematoma, syncope, headache, respiratory or cardiac arrest, pneumothorax, and scar formation Once the plan was agreed upon, the patient gave written consent to proceed and was transported into the procedure room Surgical/Procedure pause or Time Out : Time Out was led by the physician in the procedure room, with the patient and all staff present and participating The following information was verified during the Time Out process: Patient name, patient date of , procedure site (marked), laterality, anticoagulants and allergies Procedure: The patient was prepped and draped in a sterile fashion in the prone position after informed consent was signed and all patient questions were answered including the risks, benefits, alternative treatment options, and prognosis. The risks are as mentioned above, with the exception of Pneumothorax. The coronae was localized with palpation and confirmed under fluoroscopic visualization. A 1.5inch, 25 gauge needle was inserted and a skin wheel was made. The needle was then advanced until contact was made with the periosteum. Two cc. of 1% Lidocaine without Epinephrine was injected into the periosteum. A 22 gauge, 3.5 inch needle was then advanced through the Sacrococcygeal ligament. Under lateral visualization, the needle was further advanced until contact was made with the posterior surface of the dorsal sacrum. The needle was then withdrawn slightly and aligned parallel to horizontal and advanced into the epidural space. Using AP visualization, the needle was advanced no further superior than the S3 level. Contrast was then injected as described above. Subsequently, the injectate was placed. Radiographs were obtained for documentation purposes.' Please see the nursing note for exact times (time out, procedure start, procedure end). After careful removal of the needle, there was minimal bleeding. The injection site was covered with appropriate sterile dressing. The patient was noted to have tolerated the procedure well and was discharged after an appropriate period of post-procedure observation. The patient was instructed to contact us if there were any complications. The patient was advised to follow-up with the requesting physician within one to two weeks or as per their requested follow-up plan. Post procedure visit summary with written instructions was offered to the patient. Bekah Cintron MD, MBA Pain Management [facility] documented in this encounter [facility] 01-06-2023 Miscellaneous Notes Addended by: BETTY BUENO on: 01/06/2023 09:46 AM Modules accepted: Orders documented in this encounter [facility] 12-22-2022 Miscellaneous Notes See MyChart. Bekah Cintron III, MD, MAYRA documented in this encounter [facility] 12-10-2022 Miscellaneous Notes Spoke to patient and informed her that Dr. Early will be out the week of 12/13. Got patient rescheduled with Dr. Morfin on 12/14 @ 10:30 in [place]. Sierra Miranda documented in this encounter [facility] 12-07-2022 History of Present illness Narrative VIRTUAL VISIT PROGRESS NOTE This is a virtual visit. It required patient-provider interaction for the medical decision making as documented below. HISTORY REVIEWED (electronic chart updated): Obtain verbal consent for visit: eg. Due to the Coronavirus, we are providing our patients with the opportunity for medical visits by phone to help keep everyone healthy. Are you ok with us doing that today? Do you have any family members present today? Do you have all your medications in front of you for us to review? Did you take your BP, pulse within the last hour? Did you check your sugar today? Akila De Los Santos has consented to this virtual encounter. Akila De Los Santos is a 77 year old female seen for ER follow up/Trigeminal neuralgia. Persons Present: patient HPI: Trigeminal neuralgia: sxs are much improved. Stopped taking meds. Was having some side effects from medication. Sxs have resolved completely. With taking the medication: balance was off and had no control over urine. Started sxs about a week earlier. Kept getting worse and worse. Then intermittent strikes. Very painful. BP: doing well. Pt is in [facility] [place] now. 126/75 yesterday. Tired. Stressful trip. Getting acupuncture. Helped with back pain. Sugars running 120s-140s fasting. Eating lots of natural sugars. 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 losartan (COZAAR) 25 mg tablet Take 1 tablet by mouth once daily. indapamide (LOZOL) 2.5 mg tablet Take 1 tablet by mouth once daily solifenacin (VESICARE) 5 mg tablet Take 1 tablet by mouth once daily. amLODIPine (NORVASC) 10 mg tablet Take 1 tablet by mouth once daily primidone (MYSOLINE) 50 mg tablet Take 1 tablet by mouth daily at bedtime. pregabalin (LYRICA) 50 mg capsule Take one pill at night for one week, then add one pill in the morning for one week, then take on pill 3 times per day thereafter montelukast (SINGULAIR) 10 mg tablet TAKE 1 TABLET BY MOUTH ONCE DAILY AT BEDTIME citalopram (CELEXA) 20 mg tablet Take 1 tablet by mouth once daily betamethasone dipropionate 0.05 % ointment Apply to affected area twice daily. blood sugar diagnostic (ACCU-CHEK KAYCEE PLUS TEST STRP) test strip Use as instructed to check blood sugar once daily as needed. rosuvastatin (CRESTOR) 10 mg tablet TAKE 1 TABLET BY MOUTH ONCE DAILY AT BEDTIME albuterol HFA (VENTOLIN HFA) 90 mcg/actuation inhaler Inhale 2 Puffs as instructed every 4 hours as needed for wheezing/shortness of breath. BREO ELLIPTA 200-25 mcg/dose inhaler INHALE 1 PUFF BY MOUTH ONCE DAILY DIRECTED potassium chloride 20 mEq TbER Take 2 tablets by mouth twice daily. valACYclovir (VALTREX) 1 gram Take 1 tablet by mouth once daily doxazosin (CARDURA) 4 mg tablet Take 1 tablet by mouth once daily. Lancets lancets Use as instructed to check blood sugar once daily as needed No current facility-administered medications for this visit. Data Reviewed: Most recent labs REVIEW OF SYSTEMS: As noted in HPI VIDEO EXAM: (if completed, performed via video enabled technology) The patient was oriented, alert, with good memory. Speech was appropriate. GENERAL: alert and appropriate, in no distress, well-hydrated, well nourished, and happy, smiling, interactive PHYSICAL EXAMINATION: Total time in direct patient contact = 20 min. Greater than 50% of the time was spent in counseling and/or coordination of care. This Team Access Model visit is a virtual encounter. It required patient-provider interaction for the medical decision making as documented below. Add Assessment/Plan ASSESSMENT/PLAN: 1. Trigeminal neuralgia - ICD9: 350.1, ICD10: G50.0 (primary diagnosis) - resolved. Continue off meds. 2. Type 2 diabetes mellitus with peripheral neuropathy (HCC) - ICD9: 250.60, 357.2, ICD10: E11.42 - Control undetermined, due for labs - Continue current medications - LIPID PANEL BASIC - HGB A1C 3. Primary hypertension - ICD9: 401.9, ICD10: I10 - Controlled - Continue current medications - Recommend home blood pressure monitoring, to bring results to next visit - Encouraged sodium restriction, DASH or Mediterranean diet - Recommend regular aerobic exercise Betty Bueno MD documented in this encounter [facility] 12-03-2022 Instructions Nicole French PA-C - 12/03/2022 2:52 PM EDT Activity as tolerated Use Ice and/or heat as tolerated as needed documented in this encounter [facility] 12-03-2022 History of Present illness Narrative VIRTUAL VISIT PROGRESS NOTE This is a virtual visit using Zandot video visit. It required patient-provider interaction for the medical decision making as documented below. Chief Complaint/Reason: Follow-up from ER visit, trigeminal neuralgia Interval History: Pain score: 2-3/10 Interval History: Patient sent in a Contacts+ message on 11/29/2022 stating that she went to the ER due to pain in her head. At the ER she was diagnosed with trigeminal neuralgia after a CAT scan. Dr. Cintron responded to this message advising her to take the tramadol she is prescribed up to 3 times a day and continue taking the Lyrica. She was then scheduled for this visit to follow-up. Today she states that she was seen by Deborah Tena APRN.CNP who is prescribing her Trileptal BID which has really been helping her trigeminal neuralgia pain. She has had some headaches and has been taking ibuprofen which is taking care of this. States the current medication regimen is allowing for the completion of daily activities and increasing the overall quality of life. Denies any new or worsening side effects. Recall: Patient underwent the following injection with Dr. Cintron on 10/06/22: Caudal CHAZ Patient reports 90% relief from the back pain from the injection. Gabapentin was discontinued and lyrica was started at the last visit. Today she states that she likes the Lyrica much better and is satisfied with this dose. She saw Spine Surgery, had MRI C-spine (seen below), declined neck surgery, primarily having axial pain on the left side, does not radiate, limits her left lateral rotation. She is doing her neck exercises regularly from PT. Current Medications: Opioids: Tramadol 50mg, #[id number] NSAIDS: Anti-depressants: Anti-convulsants: Lyrica 50mg TID, Trileptal BID Muscle relaxants: Other medications of note: AG SPINE COMBINATION 09/11/2021 11/04/2021 01/05/2022 03/12/2022 05/10/2022 07/09/2022 09/10/2022 Questionnaire - URINE DRUG SCREEN URINE DRUG SCREEN URINE DRUG SCREEN URINE DRUG SCREEN URINE DRUG SCREEN URINE DRUG SCREEN Completed Date - 11/04/2021 01/05/2022 03/12/2022 05/10/2022 07/09/2022 09/10/2022 Comments - - phenobarbitol is a metobolite of her Rx Primidone, her UDS was appropriately postive for this - phenobarbitol is a metobolite of her Rx Primidone, her UDS was appropriately postive for this - - Questionnaire NA/OIC - - NA/OIC - - NA/OIC Completed Date 09/11/2021 - - 03/12/2022 - - 09/10/2022 Comments - - - - - - Monitored Medication Agreement - signed Questionnaire - - - - Opiod Risk Tool - - Completed Date - - - - 05/10/2022 - - Comments - - - - 3 - - Review of Systems: Reviewed on today's date. Pertinent Positives: MSK - pain in the region being treated Neuro: No weakness or numbness in the region being treated Skin: Negative (No itching) Eyes: Negative (No blurred or double vision) Respiratory: Negative (No Cough, [id number], Dyspnea on exertion, wheezing) Cardiovascular: Negative (No Chest Pain, Tightness, Pressure, Palpitations) Gastrointestinal: Negative (No Abdominal pain, Nausea, Vomiting, Constipation, Diarrhea) Genitourinary: Negative (No dysuria) Hematologic: Negative (No bleeding, bruising) Endocrine: Negative (No hot/cold intolerance) Psychiatric: Negative (No change in mood/affect) PDMP website checked and validated on today's date by Nicole French PA-C. No suspicious activity was identified. REVIEWED IMAGING: None new to review PHYSICAL EXAMINATION: There were no vitals taken for this visit. VIDEO EXAM: (if completed, performed via video enabled technology) GENERAL: alert and appropriate, in no distress, well-hydrated, well nourished, and happy, smiling, interactive SKIN: no rash noted HEAD: normocephalic, no abnormality or lesion noted EYES: no injection and visual acuity is grossly normal EARS: hearing grossly normal NOSE: external nose normal without rhinorrhea OROPHARYNX: moist mucus membranes NECK: full ROM, no cervical LNs noted RESPIRATORY: breathing non-labored CHEST: equal chest rise with normal respiratory effort EXTREMITIES: Gross movements intact NEUROLOGIC: no obvious deficit ASSESSMENT: (G50.9) Trigeminal nerve disorder (primary encounter diagnosis) (M96.1) Post laminectomy syndrome (M54.16) Lumbar radiculopathy (M47.816) Lumbar spondylosis (Z79.891) Encounter for long-term use of opiate analgesic (M46.1) Sacroiliitis (HCC) (M48.02) Cervical stenosis of spinal canal (M47.812) Cervical spondylosis without myelopathy PLAN: Continue current medications Lyrica 50mg TID - continue Continue Tramadol 50mg, #[id number] Requested Prescriptions No prescriptions requested or ordered in this encounter Functional Restorationism: Home Exercise Program: Prescribed on 12/19/2020 for the lumbar region(s) Range of motion exercises and Stretches To be performed at least 3 times per week under this Physician's supervision Depending on response to the above plan, consider: Repeat SI Joint injection; Switch to Lyrica; SI Joint RFA (prefers to avoid RFA at this time); MBB/RFA C spine or L-spine; Repeat Caudal Epidural Steroid Injection, referral to Dr. Crowder in neuro for trigeminal neuralgia treatment Follow-up: Keep appointment as scheduled UDS last visit was reviewed and was consistent. Patient reports they are happy with current treatment care plan. At this time will continued the patient's opioids today for 60 days. The patient continues to see benefit and improvement in their quality of life with adequate analgesia and ADLS's maintained. No adverse effects, no aberrant behaviors noted; OARRS reviewed and consistent. Risks of long-term medication use was reviewed and Patient advised the above medications may cause impairment of judgement while driving or operating machinery. Patient instructed on safe storage of medications We will re-evaluate opiate regimen in 60 days, office visit, to determine efficacy of treatment to ensure that we are using the lowest dose for maximum benefit. Nicole French PA-C ([place]) Pain Management [facility] I spent a total of 20 minutes on the date of the service which included preparing to see the patient, [id number] patient care, completing clinical documentation, obtaining and/or reviewing separately obtained history, counseling and educating the patient/family/caregiver, and ordering medications, tests, or procedures. Patient Instructions Activity as tolerated Use Ice and/or heat as tolerated as needed INFORMATION REVIEWED AT TODAY'S VISIT: PAST MEDICAL HISTORY Diagnosis Date Asthma Diabetes mellitus (HCC) DJD (degenerative joint disease) Osteoarthritis of multiple joints PAD (peripheral artery disease) (HCC) TIA (transient ischemic attack) PAST SURGICAL HISTORY Procedure Laterality Date CATARACT EXTRACTION HX Left 11/2016 CATARACT EXTRACTION HX Right 11/2018 TOTAL ABDOM HYSTERECTOMY FAMILY HISTORY Problem Relation Age of Onset Blindness Maternal Grandmother Social History Tobacco Use Smoking status: Former Types: Cigarettes Smokeless tobacco: Never Vaping Use Vaping Use: Never used Substance Use Topics Alcohol use: Never Drug use: Never Current Outpatient Medications on File Prior to Visit Medication Sig ascorbic acid, vitamin C, (VITAMIN C) 500 mg tablet 1 tab(s) orally once a day for 30 day(s) OXcarbazepine (TRILEPTAL) 300 mg tablet Take 1 tablet by mouth twice daily. losartan (COZAAR) 25 mg tablet Take 1 tablet by mouth once daily. traMADol (ULTRAM) 50 mg tablet Take 1-2 tablets per day as needed for pain. Use sparingly indapamide (LOZOL) 2.5 mg tablet Take 1 tablet by mouth once daily solifenacin (VESICARE) 5 mg tablet Take 1 tablet by mouth once daily. amLODIPine (NORVASC) 10 mg tablet Take 1 tablet by mouth once daily primidone (MYSOLINE) 50 mg tablet Take 1 tablet by mouth daily at bedtime. pregabalin (LYRICA) 50 mg capsule Take one pill at night for one week, then add one pill in the morning for one week, then take on pill 3 times per day thereafter montelukast (SINGULAIR) 10 mg tablet TAKE 1 TABLET BY MOUTH ONCE DAILY AT BEDTIME citalopram (CELEXA) 20 mg tablet Take 1 tablet by mouth once daily betamethasone dipropionate 0.05 % ointment Apply to affected area twice daily. blood sugar diagnostic (ACCU-CHEK KAYCEE PLUS TEST STRP) test strip Use as instructed to check blood sugar once daily as needed. rosuvastatin (CRESTOR) 10 mg tablet TAKE 1 TABLET BY MOUTH ONCE DAILY AT BEDTIME albuterol HFA (VENTOLIN HFA) 90 mcg/actuation inhaler Inhale 2 Puffs as instructed every 4 hours as needed for wheezing/shortness of breath. BREO ELLIPTA 200-25 mcg/dose inhaler INHALE 1 PUFF BY MOUTH ONCE DAILY DIRECTED potassium chloride 20 mEq TbER Take 2 tablets by mouth twice daily. valACYclovir (VALTREX) 1 gram Take 1 tablet by mouth once daily doxazosin (CARDURA) 4 mg tablet Take 1 tablet by mouth once daily. Lancets lancets Use as instructed to check blood sugar once daily as needed No current facility-administered medications on file prior to visit. ALLERGIES Allergen Reactions Aspirin Shortness of Breath Lisinopril Swelling Latex Rash Penicillins Hives, Rash Sulfamethoxazole Hives documented in this encounter [facility] 11-30-2022 History of Present illness Narrative Images from the original note were not included. Deborah Tena APRN [facility] [address] [place] [address] [employer] [facility] / [address] [place] [address] Visit Date: November 30, 2022 Name: Akila De Los Santos Date of : 1945 MRN/E #: [id number] Chief Complaint: Patient presents with: trigeminal neuralgia: Intermittent Lightning flashes of pain in head Subjective About one week ago started with temporal headache shooting from back of head to forehead on the left side. Started getting worse on Tuesday. Yesterday had acupuncture. Currently: also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 reviewed and Patient advised the above medications may cause impairment of judgement while driving or operating machinery. Patient instructed on safe storage of medications We will re-evaluate opiate regimen in 60 days, office visit, to determine efficacy of treatment to ensure that we are using the lowest dose for maximum benefit. Nicole French PA-C ([place]) [facility] I spent a total of 31 minutes on the date of the service which included preparing to see the patient, [id number] patient care, completing clinical documentation, obtaining and/or reviewing separately obtained history, counseling and educating the patient/family/caregiver, and ordering medications, tests, or procedures. Patient Instructions Activity as tolerated Use Ice and/or heat as tolerated as needed INFORMATION REVIEWED AT TODAY'S VISIT: PAST MEDICAL HISTORY Diagnosis Date Asthma Diabetes mellitus (HCC) DJD (degenerative joint disease) Osteoarthritis of multiple joints PAD (peripheral artery disease) ([facility]) TIA (transient ischemic attack) PAST SURGICAL HISTORY Procedure Laterality Date CATARACT EXTRACTION HX Left 11/2016 CATARACT EXTRACTION HX Right 11/2018 TOTAL ABDOM HYSTERECTOMY FAMILY HISTORY Problem Relation Age of Onset Blindness Maternal Grandmother Social History Tobacco Use Smoking status: Former Types: Cigarettes Smokeless tobacco: Never Vaping Use Vaping Use: Never used Substance Use Topics Alcohol use: Never Drug use: Never Current Outpatient Medications on File Prior to Visit Medication Sig indapamide (LOZOL) 2.5 mg tablet Take 1 tablet by mouth once daily solifenacin (VESICARE) 5 mg tablet Take 1 tablet by mouth once daily. tiZANidine (ZANAFLEX) 4 mg tablet Take 1 tablet by mouth at bedtime as needed (muscle spasms). (Patient not taking: Reported on 10/06/2022) amLODIPine (NORVASC) 10 mg tablet Take 1 tablet by mouth once daily primidone (MYSOLINE) 50 mg tablet Take 1 tablet by mouth daily at bedtime. traMADol (ULTRAM) 50 mg tablet Take 1-2 tablets per day as needed for pain. Use sparingly Do not start before October 10, 2022. pregabalin (LYRICA) 50 mg capsule Take one pill at night for one week, then add one pill in the morning for one week, then take on pill 3 times per day thereafter montelukast (SINGULAIR) 10 mg tablet TAKE 1 TABLET BY MOUTH ONCE DAILY AT BEDTIME citalopram (CELEXA) 20 mg tablet Take 1 tablet by mouth once daily betamethasone dipropionate 0.05 % ointment Apply to affected area twice daily. blood sugar diagnostic (ACCU-CHEK KAYCEE PLUS TEST STRP) test strip Use as instructed to check blood sugar once daily as needed. rosuvastatin (CRESTOR) 10 mg tablet TAKE 1 TABLET BY MOUTH ONCE DAILY AT BEDTIME albuterol HFA (VENTOLIN HFA) 90 mcg/actuation inhaler Inhale 2 Puffs as instructed every 4 hours as needed for wheezing/shortness of breath. BREO ELLIPTA 200-25 mcg/dose inhaler INHALE 1 PUFF BY MOUTH ONCE DAILY DIRECTED potassium chloride 20 mEq TbER Take 2 tablets by mouth twice daily. valACYclovir (VALTREX) 1 gram Take 1 tablet by mouth once daily doxazosin (CARDURA) 4 mg tablet Take 1 tablet by mouth once daily. Lancets lancets Use as instructed to check blood sugar once daily as needed No current facility-administered medications on file prior to visit. ALLERGIES Allergen Reactions Aspirin Shortness of Breath Lisinopril Swelling Latex Rash Penicillins Hives, Rash Sulfamethoxazole Hives documented in this encounter [facility] 10-14-2022 Instructions Sascha Early DC - 10/14/2022 8:22 AM EDT Activity as tolerated Continue HEP Ice/Heat as needed Call if symptoms worsen documented in this encounter [facility] 10-13-2022 History of Present illness Narrative Images from the original note were not included. [facility] Sascha Early DC Phone: Date of Evaluation: 10/13/2022 Patient Name: Akila De Los Santos : 1945 Subjective: Ms. De Los Santos is a 77 year old female who presents for initial evaluation for Neck Pain. The pain started 1 month ago following nothing and symptoms have been stable.The pain is located in the neck area and radiates to the up into head. The pain is described as aching, sharp, and shooting and is rated as 2 on a scale of 0-10. The pain is constant with a score of 1 on the BEST day and a score of 10 on the WORST day. Symptoms interfere with physical activity, driving, household cleaning, reaching for shelves, and lifting. The pain is exacerbated by lifting and moving head to the right. The pain is mitigated by medications and heat. She reports spending 12 hours per day reclining. The patient reports 2 hours of uninterrupted sleep per night. The patient reports difficulty with bowel or bladder control and numbness or tingling. AO Med Nec MP 20 acu Pain Intensity 1 - The pain is very mild at the moment Personal Care (Washing/Dressing) 0 - I can look after myself normally without causing extra pain Lifting 3 - Pain prevents me from lifting heavy weights but I can manage light/medium weights if conveniently positioned (e.g. on a table) Walking 3 - Pain prevents me from walking more than 1/4 mile Sitting 1 - I can sit in my favorite chair as long as I like Standing 1 - I can stand as long as I want but it gives me extra pain Sleeping 1 - I can sleep well only by using medication Social Life 2 - Pain has no significant effect on my social life apart from limiting my more energetic interests (e.g. sports, etc.) Traveling 1 - I can travel anywhere but it gives me extra pain Total Score 29 Interpretation 21% - 40% - moderate disability Review of Systems Constitutional: Negative for chills, fatigue, fever and unexpected weight change. HENT: Negative for hearing loss. Eyes: Negative for visual disturbance. Respiratory: Positive for shortness of breath. Cardiovascular: Negative for chest pain. Musculoskeletal: Positive for arthralgias, neck pain and neck stiffness. Negative for back pain and myalgias. Skin: Negative for color change. Neurological: Positive for numbness. Negative for dizziness, syncope, speech difficulty, weakness, light-headedness and headaches. PAST MEDICAL HISTORY Diagnosis Date Asthma Diabetes mellitus (HCC) DJD (degenerative joint disease) Osteoarthritis of multiple joints PAD (peripheral artery disease) (HCC) TIA (transient ischemic attack) PAST SURGICAL HISTORY Procedure Laterality Date CATARACT EXTRACTION HX Left 11/2016 CATARACT EXTRACTION HX Right 11/2018 TOTAL ABDOM HYSTERECTOMY FAMILY HISTORY Problem Relation Age of Onset Blindness Maternal Grandmother Social History Tobacco Use Smoking status: Former Types: Cigarettes Smokeless tobacco: Never Vaping Use Vaping Use: Never used Substance Use Topics Alcohol use: Never Drug use: Never I have confirmed and edited as necessary the HPI and ROS obtained by others. No question data found. Objective: There were no vitals taken for this visit. Physical Exam Musculoskeletal: Cervical back: Spasms (Blateral cervical paraspinals and Trapezius) and tenderness present. Pain with movement present. Decreased range of motion (Cervical rotation and lateral bending bilaterally). Lumbar back: Spasms (Bilateral lumbar paraspinals) and tenderness (Spinous Processes) present. Decreased range of motion (Lumbar Extension). Comments: + Spurlings, reproduction of centrally located neck pain Neurological: Mental Status: She is alert and oriented to person, place, and time. Coordination: Coordination is intact. Gait: Gait is intact. TREATMENTS: Acupuncture: 30 mins; lumbar surround; prone position Patient responded well, instructed to call with problems or concerns. I personally performed treatments/procedures listed above. Time In: 100 Time Out: 216 IMPRESSION/PLAN: (M46.1) Sacroiliitis (HCC) (primary encounter diagnosis) (M54.16) Lumbar radiculopathy Return for Acu/manip 2x month/2 months. Patient Instructions: Activity as tolerated Continue HEP Ice/Heat as needed Call if symptoms worsen Sascha Early DC documented in this encounter [facility] 10-08-2022 Miscellaneous Notes Spoke with patient following procedure, patient states no concerns at this time. Loli Gonzalez LPN documented in this encounter [facility] 10-08-2022 Miscellaneous Notes INSURANCE CO. ID # GROUP # CO-PAY DEDUCTIBLE COINSUR. OUT OF POCKET MAX PRIOR AUTH REQU'D LIMITATIONS REFERENCE # SPOKE TO: Erlinda [employer] [id number] $20 mp $15 acu $1,500 $120 Med Nec MP 20 acu [id number] Juan R Degroot Is this a Medicare or Medicaid product? Yes Does this follow Medicare guidelines? Yes Is this a [employer] product? No Does this require clinical submission through [employer]? NA Chiropractor: Dr. Early Contracted: Yes Chiropractic benefits: In network Are the billable benefits a HARD LIMIT? Yes If yes, what is the mailing address for additional requests to be sent? Where are chiropractic claims sent: Is there a pre-existing rider on claims: Ask for the managed care department for benefits Be sure to ask: Are these supervised or unsupervised therapeutic modalities covered if billed by a chiropractor? CPT CODE NAME COVERED? 18996 Manual manipulations spine 1-2 Y 37849 [id number] Manual manipulations spine 3-4 Manual manipulations spine 5 Y Y 73535 Manual manipulations of extremities 77596 Hot/cold packs 90451 Mechanical traction 48106 Electrical stimulation 43684 Therapeutic exercises 16790 Neuromuscular re-education 99943 Massage therapy 60729 Manual therapy 94766 Acupuncture < 15 minutes Y 68315 [id number] Acupuncture > 15 minutes Acupuncture with stim < 15 minutes Acupuncture with stim > 15 minutes Y Eleazar Copeland LMT documented in this encounter [facility] 09-01-2022 History of Present illness Narrative Images from the original note were not included. NEUROSURGERY FOLLOW UP OFFICE NOTE Vickie Tiwari APRN.CNP Date of visit: September 01, 2022 Patient Name: Ms.Carolyn De Los Santos Date of : 1945 Current Age: [age] year old Sex: female MRN/E# [id number] Last Office Visit: 08/13/2022 Chief Complaint: Patient presents with: Established Patient The patient presents for a follow up with imaging (MRI of the C-spine) for evaluation. This is a 77-year-old female with a PMHx of asthma, T2DM, DJD, HTN, OA, PAD, diabetic peripheral neuropathy, scoliosis, lumbar surgery x3, left shoulder impingement with acromial hook, myalgia, arthralgia and TIA who was referred by Dr. Betty Bueno for Neurosurgical evaluation. She was seen on 08/13/2022 with reports of a 1 year history of cervical neck pain with radiation to the shoulders. Since then she has been seen and evaluated by multiple specialties including orthopedic surgery, Dr. Telles. Work-up showed tendinosis of the left rotator cuff without noticeable tearing. It was suspected that she may have some degenerative tearing of the superior labrum or biceps tendon however conservative management was recommended. Imaging was also completed regarding the cervical spine she was noted to have straightening and partial reversal of the normal cervical lordosis with degenerative changes at C4-C5 and C5-C6. For this finding she was referred to physical therapy. Since then (10/08/2021) she has treated her symptoms through pain management, physical therapy, and a home exercise program. She stated that her shoulder symptoms improved somewhat but she still had significant range of motion deficits when attempting to turn her head to the left. She also reported weakness to the arms and hands with associated numbness and tingling. She denied any recent falls or trauma. She denied any bowel or bladder disturbances. Neurologically she was noted to have weakness in the bilateral upper extremities. Recommendation was to obtain an MRI of the cervical spine prompting her visit today. Since last visit she states her symptoms are unchanged. She still has difficulty with her cervical left-sided range of motion. She also continues to have intermittent episodes of left lateral cervical neck pain with radiation to the shoulder. She denies any new or concerning issues otherwise. She presents for image review, evaluation and plan of care. Smoker: No Diabetic: Yes - A1C - 7.2 diet controlled Anticoagulants / Antiplatelets: No Occupation: NA Symptoms: Posterior cervical neck pain with radiation to the bilateral shoulders left greater than right PREVIOUS CONSERVATIVE TREATMENTS: Pain Management Steroid injections - Caudal 02/01/22, SIJ bilateral 11/26/21 Opioids - Tramadol Topical analgesics -Voltaren gel, Aspercreme with Membrane stabilizers -gabapentin 600 mg 3 times daily Tylenol arthritis PREVIOUS SURGERY: SURGERY #1: 2001 left L2-S1 SURGERY #2: 2002 R L5-S1 SURGERY #3: 2004 L3-L4 disc implant, L5 lami PAIN EVALUATION 08/27/2022 1813 Pain Location: Head Duration Amount of Time: 1 Duration Units: Minutes Frequency: Intermittent Intervention/Comfort measure: Other: See comment Comments: Just being completely still while the pain travels through and disappears. It is not an often pain it will just shoot down every once in awhile. PAST MEDICAL HISTORY Diagnosis Date Asthma Diabetes mellitus (HCC) DJD (degenerative joint disease) Osteoarthritis of multiple joints PAD (peripheral artery disease) (HCC) TIA (transient ischemic attack) PAST SURGICAL HISTORY Procedure Laterality Date CATARACT EXTRACTION HX Left 11/2016 CATARACT EXTRACTION HX Right 11/2018 TOTAL ABDOM HYSTERECTOMY FAMILY HISTORY Problem Relation Age of Onset Blindness Maternal Grandmother ALLERGIES Allergen Reactions Aspirin Shortness of Breath Lisinopril Swelling Latex Rash Penicillins Hives, Rash Sulfamethoxazole Hives Current Outpatient Medications Medication Sig Dispense Refill citalopram (CELEXA) 20 mg tablet Take 1 tablet by mouth once daily 90 tablet 2 betamethasone dipropionate 0.05 % ointment Apply to affected area twice daily. 15 g 1 gabapentin (NEURONTIN) 600 mg tablet Take 1 tablet by mouth three times daily for 180 days. 270 tablet 1 traMADol (ULTRAM) 50 mg tablet Take 1-2 tablets per day as needed for pain. Use sparingly Do not start before August 08, 2022. 45 tablet 0 solifenacin (VESICARE) 5 mg tablet Take 1 tablet by mouth once daily. 30 tablet 2 blood sugar diagnostic (ACCU-CHEK KAYCEE PLUS TEST STRP) test strip Use as instructed to check blood sugar once daily as needed. 100 Each 11 rosuvastatin (CRESTOR) 10 mg tablet TAKE 1 TABLET BY MOUTH ONCE DAILY AT BEDTIME 90 tablet 3 albuterol HFA (VENTOLIN HFA) 90 mcg/actuation inhaler Inhale 2 Puffs as instructed every 4 hours as needed for wheezing/shortness of breath. 18 g 4 amLODIPine (NORVASC) 10 mg tablet Take 1 tablet by mouth once daily 90 tablet 1 montelukast (SINGULAIR) 10 mg tablet TAKE 1 TABLET BY MOUTH ONCE DAILY AT BEDTIME 90 tablet 1 BREO ELLIPTA 200-25 mcg/dose inhaler INHALE 1 PUFF BY MOUTH ONCE DAILY DIRECTED 60 Each 11 potassium chloride 20 mEq TbER Take 2 tablets by mouth twice daily. 360 tablet 4 valACYclovir (VALTREX) 1 gram Take 1 tablet by mouth once daily 90 tablet 3 doxazosin (CARDURA) 4 mg tablet Take 1 tablet by mouth once daily. 90 tablet 3 Lancets lancets Use as instructed to check blood sugar once daily as needed 100 Each 11 indapamide (LOZOL) 2.5 mg tablet Take 1 tablet by mouth once daily. 90 tablet 1 primidone (MYSOLINE) 50 mg tablet Take 2 tablets by mouth daily at bedtime. (Patient taking differently: Take 100 mg by mouth daily at bedtime. 1 tablet) 180 tablet 1 No current facility-administered medications for this visit. REVIEW OF SYSTEMS Review of Systems Constitutional: Negative for chills, diaphoresis (Negative for night sweats.) and fever. HENT: Negative for ear discharge and rhinorrhea. Eyes: Negative for discharge. Respiratory: Negative for cough, shortness of breath and wheezing. Cardiovascular: Negative for chest pain, palpitations and leg swelling. Gastrointestinal: Negative for constipation, diarrhea, nausea and vomiting. Endocrine: Negative for cold intolerance and heat intolerance. Genitourinary: Negative for frequency. Negative for urinary incontinence and urinary retention. Musculoskeletal: Positive for myalgias, neck pain and neck stiffness. Negative for back pain and joint swelling. Skin: Negative for rash (Negative for hives and skin lesions.). Allergic/Immunologic: Negative for environmental allergies and food allergies. Negative for contact allergy, seasonal allergies. Neurological: Negative for dizziness, seizures, syncope, weakness, light-headedness, numbness (Negative for numbness in extremities.) and headaches. Hematological: Does not bruise/bleed easily. Psychiatric/Behavioral: The patient is not nervous/anxious. Negative for depression. OBJECTIVE: BP 160/83 Pulse 74 Resp 16 Ht 5' 0 (1.52m) Wt 153 lb 7 oz (69.6kg) BMI 29.97 kg/(m^2). PHYSICAL EXAM: Mental State : Alert, memory function unremarkable. Attention span and concentration normal for patient's age. Speech normal, no receptive or expressive speech deficit. Recent and remote memory normal. Orientation : Oriented to person, place and time. Higher Cortical Function : Intact speech and language. Spontaneous speech and comprehension normal. Fund of knowledge intact for pt level of education. Cranial Nerves : II: No visual field cut no blurring, Makes and sustains eye contact III, IV, : Normal, no double vision or drooping. Pupils equal and reactive to light. Extraocular muscles intact. No nystagmus V: Normal sensation on the face, normal jaw movements VII: No paresis on either side VIII: No gross hearing deficit IX: Good and equal shoulder shrugs XII: Tongue midline, no fasciculations Sensory: Normal Sensation in upper and lower extremities and trunk to touch and noxious stimuli. Motor: Normal muscle tone and bulk. No tremor or uncontrollable movements. No spasticity or tremor. Strength: Upper Extremities : R L Deltoid 4/5 4/5 Biceps 4/5 4/5 Triceps 4.5/5 4/5 Wrist Ext 5/5 5/5 Wrist Flx 5/5 5/5 Hand Int 4.5/5 4/5 Lower Extremities : Hip Flexors 5/5 5/5 Hip Extensors 5/5 5/5 Hip Abductors 5/5 5/5 Straight leg Neg Neg Ankle dorsiflex 5/5 5/5 Ankle Plantar 5/5 5/5 Heel Walking intact intact Toe Walking intact intact Reflexes : Biceps 2+ 2+ Triceps 2+ 2+ Wrist 2+ 2+ Patellar 2+ 2+ Achilles 2+ 2+ Mercado's Neg Neg Tinel's Neg Neg Phalen's Neg Neg Cerebellar Function : Normal finger to nose. Normal rapid alternating movements. No ataxia. Negative Romberg. Gait and Station: Normal gait. No assistive device usage. Pulmonary: Lungs without cough, audible wheeze. Respirations unlabored. Cardiac: Regular rate and rhythm. No murmer, gallop or rub. Data Review IMAGING STUDIES: MRI C-spine WO IVCON performed on 08/25/22 demonstrates: IMPRESSION: 1. Multilevel degenerative cervical spondylosis with straightening of cervical lordosis. 2. At C3-C4 there is moderate stenosis of the spinal canal and severe left neural foraminal stenosis. 3. There is multilevel high-grade neural foraminal stenosis as detailed. Personal review of medical records: I reviewed with the patient, history, physical exam, the images and the chart. ASSESSMENT/PLAN: (M48.02) Spinal stenosis of cervical region (primary encounter diagnosis) Comment: The patient returns today for a follow-up after obtaining MRI of the cervical spine. She reports that her symptoms are virtually unchanged. She continues to have difficulty with turning her head to the left. Neurologically her exam is unchanged. I reviewed her most recent MRI and discussed that she has degenerative changes in multiple levels causing mild central canal stenosis especially at the C3-C4 level. She does have some severe left-sided neural foraminal stenosis at that level as well. We had a long discussion regarding treatment options. She would like to forego any surgical intervention at this point. I agree with her plan and recommend conservative therapy including physical therapy and/or steroid injections to the affected areas in the cervical spine if pain management feels this is indicated. I told her to please feel free to contact the office in the future should she develop any new or concerning issues and the need arise. All of her questions and concerns were addressed in detail. Plan: Follow up as needed. TERRENCE Nelson Neurosurgery Nurse Practitioner [facility] Follow Up: Return for new or worsening symptoms. documented in this encounter [facility] 08-13-2022 History of Present illness Narrative Images from the original note were not included. NEUROSURGERY CONSULT NOTE Vickie Tiwari APRN.CNP Date of visit: August 13, 2022 Patient Name: Ms.Carolyn De Los Santos Date of : 1945 Current Age: [age] year old Sex: female MRN/E# [id number] Chief Complaint: Patient presents with: New Patient Evaluation HISTORY OF PRESENT ILLNESS : The patient is a 77 year old, female with a PMHx of asthma, T2DM, DJD, HTN, OA, PAD, diabetic peripheral neuropathy, scoliosis, lumbar surgery x3, left shoulder impingement with acromial hook, myalgia, arthralgia and TIA who is referred by Ximena Dumont for Neurosurgical evaluation. The patient presents as a new patient with imaging (XR C-spine) for evaluation. She reports a 1 year history of cervical neck pain with radiation to the shoulders. Since then she has been seen and evaluated by multiple specialties including orthopedic surgery, Dr. Telles. Work-up showed tendinosis of the left rotator cuff without noticeable tearing. It was suspected that she may have some degenerative tearing of the superior labrum or biceps tendon however conservative management was recommended. Imaging was also completed regarding the cervical spine she was noted to have straightening and partial reversal of the normal cervical lordosis with degenerative changes at C4-C5 and C5-C6. For this finding she was referred to physical therapy. Since then (10/08/2021) she has treated her symptoms through pain management, physical therapy, and a home exercise program. She states that her shoulder symptoms improved somewhat but she still has significant range of motion deficits when attempting to turn her head to the left. She also reports weakness to the arms and hands with associated numbness and tingling. She denies any recent falls or trauma. She denies any bowel or bladder disturbances. She presents for evaluation and plan of care. Symptoms: Posterior cervical neck pain with radiation to the bilateral shoulders left greater than right DERMATOMAL DISTRIBUTION: Right: C5 and C6 Left: C5 and C6 Smoker: No Diabetic: Yes - A1C - 7.2 diet controlled Anticoagulants / Antiplatelets: No Occupation: NA PREVIOUS CONSERVATIVE TREATMENTS: Pain Management Steroid injections - Caudal 02/01/22, SIJ bilateral 11/26/21 Opioids - Tramadol Topical analgesics -Voltaren gel, Aspercreme with Membrane stabilizers -gabapentin 600 mg 3 times daily Tylenol arthritis PREVIOUS SURGERY: SURGERY #1: 2001 left L2-S1 SURGERY #2: 2002 R L5-S1 SURGERY #3: 2004 L3-L4 disc implant, L5 lami PAIN EVALUATION 08/10/2022 1703 Pain Level: 4 Description: Sharp;Stiffness Duration Units: Months Intervention/Comfort measure: Exercise;Massage Comments: Turning my head to the left is basically the only time I have problems with this neck pain. PAST MEDICAL HISTORY Diagnosis Date Asthma Diabetes mellitus ([facility]) DJD (degenerative joint disease) Osteoarthritis of multiple joints PAD (peripheral artery disease) ([facility]) TIA (transient ischemic attack) PAST SURGICAL HISTORY Procedure Laterality Date CATARACT EXTRACTION HX Left 11/2016 CATARACT EXTRACTION HX Right 11/2018 TOTAL ABDOM HYSTERECTOMY FAMILY HISTORY Problem Relation Age of Onset Blindness Maternal Grandmother ALLERGIES Allergen Reactions Aspirin Shortness of Breath Lisinopril Swelling Latex Rash Penicillins Hives, Rash Sulfamethoxazole Hives Current Outpatient Medications Medication Sig Dispense Refill betamethasone dipropionate 0.05 % ointment Apply to affected area twice daily. 15 g 1 gabapentin (NEURONTIN) 600 mg tablet Take 1 tablet by mouth three times daily for 180 days. 270 tablet 1 traMADol (ULTRAM) 50 mg tablet Take 1-2 tablets per day as needed for pain. Use sparingly Do not start before August 08, 2022. 45 tablet 0 solifenacin (VESICARE) 5 mg tablet Take 1 tablet by mouth once daily. 30 tablet 2 blood sugar diagnostic (ACCU-CHEK KAYCEE PLUS TEST STRP) test strip Use as instructed to check blood sugar once daily as needed. 100 Each 11 rosuvastatin (CRESTOR) 10 mg tablet TAKE 1 TABLET BY MOUTH ONCE DAILY AT BEDTIME 90 tablet 3 albuterol HFA (VENTOLIN HFA) 90 mcg/actuation inhaler Inhale 2 Puffs as instructed every 4 hours as needed for wheezing/shortness of breath. 18 g 4 indapamide (LOZOL) 2.5 mg tablet Take 1 tablet by mouth once daily. 90 tablet 1 amLODIPine (NORVASC) 10 mg tablet Take 1 tablet by mouth once daily 90 tablet 1 montelukast (SINGULAIR) 10 mg tablet TAKE 1 TABLET BY MOUTH ONCE DAILY AT BEDTIME 90 tablet 1 citalopram (CELEXA) 20 mg tablet Take 1 tablet by mouth once daily 90 tablet 1 BREO ELLIPTA 200-25 mcg/dose inhaler INHALE 1 PUFF BY MOUTH ONCE DAILY DIRECTED 60 Each 11 potassium chloride 20 mEq TbER Take 2 tablets by mouth twice daily. 360 tablet 4 valACYclovir (VALTREX) 1 gram Take 1 tablet by mouth once daily 90 tablet 3 doxazosin (CARDURA) 4 mg tablet Take 1 tablet by mouth once daily. 90 tablet 3 primidone (MYSOLINE) 50 mg tablet Take 2 tablets by mouth daily at bedtime. (Patient taking differently: Take 100 mg by mouth daily at bedtime. 1 tablet) 180 tablet 1 Lancets lancets Use as instructed to check blood sugar once daily as needed 100 Each 11 No current facility-administered medications for this visit. REVIEW OF SYSTEMS Review of Systems Constitutional: Negative for chills, diaphoresis (Negative for night sweats.) and fever. HENT: Negative for ear discharge and rhinorrhea. Eyes: Negative for discharge. Respiratory: Negative for cough, shortness of breath and wheezing. Cardiovascular: Negative for chest pain, palpitations and leg swelling. Gastrointestinal: Negative for constipation, diarrhea, nausea and vomiting. Endocrine: Negative for cold intolerance and heat intolerance. Genitourinary: Negative for frequency. Negative for urinary incontinence and urinary retention. Musculoskeletal: Positive for neck pain and neck stiffness. Negative for back pain, joint swelling and myalgias. Skin: Negative for rash (Negative for hives and skin lesions.). Allergic/Immunologic: Negative for environmental allergies and food allergies. Negative for contact allergy, seasonal allergies. Neurological: Positive for weakness and numbness (Negative for numbness in extremities.). Negative for dizziness, seizures, syncope, light-headedness and headaches. Hematological: Does not bruise/bleed easily. Psychiatric/Behavioral: The patient is not nervous/anxious. Negative for depression. OBJECTIVE: BP 167/74 Pulse 60 Ht 5' 0 (1.52m) Wt 154 lb 1.6 oz (69.9kg) SpO2 100% BMI 30.10 kg/(m^2). PHYSICAL EXAM: Mental State : Alert, memory function unremarkable. Attention span and concentration normal for patient's age. Speech normal, no receptive or expressive speech deficit. Recent and remote memory normal. Orientation : Oriented to person, place and time. Higher Cortical Function : Intact speech and language. Spontaneous speech and comprehension normal. Fund of knowledge intact for pt level of education. Cranial Nerves : II: No visual field cut no blurring, Makes and sustains eye contact III, IV, : Normal, no double vision or drooping. Pupils equal and reactive to light. Extraocular muscles intact. No nystagmus V: Normal sensation on the face, normal jaw movements VII: No paresis on either side VIII: No gross hearing deficit IX: Good and equal shoulder shrugs XII: Tongue midline, no fasciculations Sensory: Normal Sensation in upper and lower extremities and trunk to touch and noxious stimuli. Motor: Normal muscle tone and bulk. No tremor or uncontrollable movements. No spasticity or tremor. Strength: Upper Extremities : R L Deltoid 4/5 4/5 Biceps 4/5 4/5 Triceps 4.5/5 4/5 Wrist Ext 5/5 5/5 Wrist Flx 5/5 5/5 Hand Int 4.5/5 4/5 Lower Extremities : Hip Flexors 5/5 5/5 Hip Extensors 5/5 5/5 Hip Abductors 5/5 5/5 Straight leg Neg Neg Ankle dorsiflex 5/5 5/5 Ankle Plantar 5/5 5/5 Heel Walking intact intact Toe Walking intact intact Reflexes : Biceps 2+ 2+ Triceps 2+ 2+ Wrist 2+ 2+ Patellar 2+ 2+ Achilles 2+ 2+ Mercado's Neg Neg Tinel's Neg Neg Phalen's Neg Neg Cerebellar Function : Normal finger to nose. Normal rapid alternating movements. No ataxia. Negative Romberg. Gait and Station: Normal gait. No assistive device usage. Pulmonary: Lungs without cough, audible wheeze. Respirations unlabored. Cardiac: Regular rate and rhythm. No murmer, gallop or rub. Data Review IMAGING STUDIES: XR C-spine 4V performed on 07/30/22 demonstrates: IMPRESSION: Multilevel degenerative changes, limitations as noted Personal review of medical records: I reviewed with the patient, history, physical exam, the images and the chart. (M43.02) Spondylolysis of cervical region (primary encounter diagnosis) (M48.02) Spinal stenosis of cervical region Comment: This is a very pleasant 77-year-old female who presents for evaluation of cervical neck pain with radiation to the bilateral upper extremities with associated numbness and weakness. Neurologically this is noted on her exam with the left arm being slightly weaker than the right. She has participated in multiple modalities of conservative therapy over the last year and continues to do so up to this day. Given her exam findings and failure to improve with conservative therapies I recommended that we obtain an MRI of the cervical spine for further evaluation. Once this is completed she will follow-up for review and further planning. All of her questions and concerns were addressed in detail. Plan: MRI CERVICAL SPINE WO IVCON Vickie Tiwari APRN-NELY Neurosurgery Nurse Practitioner [facility] This note was partially generated using [email or web address] voice recognition system, and there may be some incorrect words, spellings, and punctuation that were not noted in checking the note before saving. documented in this encounter [facility] 08-11-2022 Miscellaneous Notes Spoke with pt to follow up from procedure. Patient states they are doing well, no questions or concerns at this time. FAB Aj documented in this encounter [facility] 08-06-2022 Miscellaneous Notes Call patient and discussed x-ray results with her over the phone. Discussed the pros and cons of having a neurosurgical evaluation given she also has bilateral hand weakness and muscle atrophy in the hands. Patient was in agreement with having such an evaluation. Referral placed. Betty Bueno MD documented in this encounter [facility] 07-26-2022 History of Present illness Narrative Subjective Diabetes She presents for her follow-up diabetic visit. She has type 2 diabetes mellitus. Pertinent negatives for hypoglycemia include no headaches. Associated symptoms include polyuria. Pertinent negatives for diabetes include no blurred vision, no chest pain, no fatigue, no foot paresthesias, no polydipsia, no polyphagia and no visual change. Hypertension This is a chronic problem. Associated symptoms include peripheral edema (stockings help). Pertinent negatives include no anxiety, blurred vision, chest pain, headaches, malaise/fatigue, palpitations or shortness of breath. There are no associated agents to hypertension. BP lo/85, 136/69, 150/73, 148/69, 153/80, 180/68.(Ill) Recently dx'ed w/ COVID-19 again. Myalgias: Better. Lost voice. Better than it's been. Takes claritin daily. OTC. Celexa: no hot flashes since she has been on it. Hemoglobin A1C (%) Date Value 03/23/2022 8.4 Hemoglobin A1C (POCT) (%) Date Value 07/26/2022 7.7 08/28/2021 7.1 02/13/2021 6.2 Diet: not bad. Cooks a lot of vegetables. Eats fish, chicken. Avoiding red meat. No walking 2/2 hip walking a lot. Has injection scheduled for next month. Occasional burning w/ urination x 2 wks. No every time. Can tell when. When getting ready to come through. Going every 2 hrs at night. Review of Systems Constitutional: Negative for fatigue and malaise/fatigue. Eyes: Negative for blurred vision. Respiratory: Negative for shortness of breath. Cardiovascular: Negative for chest pain and palpitations. Neurological: Negative for headaches. Endo/Heme/Allergies: Negative for polydipsia and polyphagia. BP 136/75 Temp 36.6 C (97.9 F) Ht 5' (1.524 m) Wt 154 lb (69.9 kg) BMI 30.08 kg/m Objective Physical Exam Vitals and nursing note reviewed. HENT: Head: Normocephalic and atraumatic. Right Ear: External ear normal. Left Ear: External ear normal. Nose: Nose normal. Mouth/Throat: Pharynx: No oropharyngeal exudate. Eyes: General: No scleral icterus. Conjunctiva/sclera: Conjunctivae normal. Pupils: Pupils are equal, round, and reactive to light. Cardiovascular: Rate and Rhythm: Normal rate and regular rhythm. Heart sounds: Normal heart sounds. No murmur heard. No friction rub. No gallop. Pulmonary: Effort: Pulmonary effort is normal. No respiratory distress. Breath sounds: Normal breath sounds. No wheezing or rales. Abdominal: General: Bowel sounds are normal. There is no distension. Palpations: Abdomen is soft. Tenderness: There is no abdominal tenderness. There is no guarding or rebound. Musculoskeletal: General: No tenderness or deformity. Normal range of motion. Skin: General: Skin is warm and dry. Coloration: Skin is not pale. Findings: No erythema or rash. Neurological: Mental Status: She is alert. Psychiatric: Mood and Affect: Affect normal. Atrophy of muscles in center or hands b/l. Limted ROM of neck H/o nl DXA in 2020. ASSESSMENT/PLAN: 1. Type 2 diabetes mellitus with peripheral neuropathy (HCC) - ICD9: 250.60, 357.2, ICD10: E11.42 (primary diagnosis) - Improving control - Continue current medications - HGBA1C B/O 2. Neck pain - ICD9: 723.1, ICD10: M54.2 Consider MRI, EMG, NSx in the future if pt is willing based on b/l palmar muscle atrophy - XR CERV OTHER 4V AP/LAT/OBL 3. Eczema of both external ears - ICD9: 380.22, ICD10: H60.543 - discussed skin care of rash - follow up if symptoms persist or worsen. - BETAMETHASONE DIPROPIONATE 0.05 % TOPICAL OINTMENT 4. Dysuria - ICD9: 788.1, ICD10: R30.0 acute - Patient education for prevention given - URINE CULTURE - URINALYSIS, WITH MICROSCOPIC - UA DIP B/O - Macrobid Betty Bueno MD documented in this encounter [facility] 07-12-2022 Instructions Betty Bueno MD - 07/12/2022 2:54 PM EDT Fact Sheet for Patients And Caregivers Emergency Use Authorization (EUA) Of LAGEVRIO (molnupiravir) capsules For Coronavirus Disease 2019 (COVID-19) What is the most important information I should know about LAGEVRIO? LAGEVRIO may cause serious side effects, including: LAGEVRIO may cause harm to your unborn baby. It is not known if LAGEVRIO will harm your baby if you take LAGEVRIO during . LAGEVRIO is not recommended for use in . LAGEVRIO has not been studied in . LAGEVRIO was studied in animals only. When LAGEVRIO was given to animals, LAGEVRIO caused harm to their unborn babies. You and your healthcare provider may decide that you should take LAGEVRIO during if there are no other COVID-19 treatment options approved or authorized by the FDA that are accessible or clinically appropriate for you. If you and your healthcare provider decide that you should take LAGEVRIO during , you and your healthcare provider should discuss the known and potential benefits and the potential risks of taking LAGEVRIO during . For individuals who are able to become : You should use a reliable method of control (contraception) consistently and correctly during treatment with LAGEVRIO and for 4 days after the last dose of LAGEVRIO. Talk to your healthcare provider about reliable control methods. Before starting treatment with LAGEVRIO your healthcare provider may do a test to see if you are before starting treatment with LAGEVRIO. Tell your healthcare provider right away if you become or think you may be during treatment with LAGEVRIO. Registry: There is a registry for individuals who take LAGEVRIO during . The purpose of this program is to collect information about the health of you and your baby. If you are or become during treatment with LAGEVRIO, you are encouraged to report your use of LAGEVRIO during to this registry at https://covid-pr.pregistry.com or . For individuals who are sexually active with partners who are able to become : It is not known if LAGEVRIO can affect sperm. While the risk is regarded as low, animal studies to fully assess the potential for LAGEVRIO to affect the babies of males treated with LAGEVRIO have not been completed. A reliable method of control (contraception) should be used consistently and correctly during treatment with LAGEVRIO and for at least 3 months after the last dose. The risk to sperm beyond 3 months is not known. Studies to understand the risk to sperm beyond 3 months are ongoing. Talk to your healthcare provider about reliable control methods. Talk to your healthcare provider if you have questions or concerns about how LAGEVRIO may affect sperm. You are being given this fact sheet because your healthcare provider believes it is necessary to provide you with LAGEVRIO for the treatment of adults with a current diagnosis of mild-tomoderate coronavirus disease 2019 (COVID-19) who are at high risk for progression to severe COVID-19, including hospitalization or , and for whom other COVID-19 treatment options approved or authorized by the FDA are not accessible or clinically appropriate. The [place]. Food and Drug Administration (FDA) has issued an Emergency Use Authorization (EUA) to make LAGEVRIO available during the COVID-19 pandemic (for more details about an EUA please see What is an Emergency Use Authorization? at the end of this document). LAGEVRIO is not an FDA-approved medicine in the [place]. Read this Fact Sheet for information about LAGEVRIO. Talk to your healthcare provider about your options if you have any questions. It is your choice to take LAGEVRIO. What is COVID-19? COVID-19 is caused by a virus called a coronavirus. You can get COVID-19 through close contact with another person who has the virus. COVID-19 illnesses have ranged from very prbk-vm-iwtaqm, including illness resulting in . While information so far suggests that most COVID-19 illness is mild, serious illness can happen and may cause some of your other medical conditions to become worse. Older people and people of all ages with severe, long lasting (chronic) medical conditions like heart disease, lung disease and diabetes, for example seem to be at higher risk of being hospitalized for COVID-19. What is LAGEVRIO? LAGEVRIO is an investigational medicine used to treat adults with a current diagnosis of mild to moderate COVID-19: who are at high risk for progression to severe COVID-19 including hospitalization or , and for whom other COVID-19 treatment options approved or authorized by the FDA are not accessible or clinically appropriate. The FDA has authorized the emergency use of LAGEVRIO for the treatment of mild-tomoderate COVID-19 in adults under an EUA. For more information on EUA, see the What is an Emergency Use Authorization (EUA)? section at the end of this Fact Sheet. LAGEVRIO is not authorized: for use in people less than 18 years of age. for prevention of COVID-19. for people needing hospitalization for COVID-19. for use for longer than 5 consecutive days. What should I tell my healthcare provider before I take LAGEVRIO? Tell your healthcare provider if you: have any allergies are or plan to breastfeed have any serious illnesses Take any medicines including prescription, vlug-vdr-gefqowc medicines, vitamins, and herbal products. How do I take LAGEVRIO? Take LAGEVRIO exactly as your healthcare provider tells you to take it. Take 4 capsules of LAGEVRIO every 12 hours (for example, at 8 am and at 8 pm) Take LAGEVRIO for 5 days. It is important that you complete the full 5 days of treatment with LAGEVRIO. Do not stop taking LAGEVRIO before you complete the full 5 days of treatment, even if you feel better. Take LAGEVRIO with or without food. You should stay in isolation for as long as your healthcare provider tells you to. Talk to your healthcare provider if you are not sure about how to properly isolate while you have COVID-19. Swallow LAGEVRIO capsules whole. Do not open, break, or crush the capsules. If you cannot swallow capsules whole, tell your healthcare provider. If your healthcare provider prescribes LAGEVRIO and tells you to take or give a dose through a nasogastric (NG) or orogastric (OG) tube, follow the instructions below: How to take or give a dose of LAGEVRIO through a nasogastric (NG) or orogastric (OG) feeding tube. You must have an NG or OG that is size 12 [place] (FR) or larger. If you miss a dose of LAGEVRIO: If it has been less than 10 hours since the missed dose, take it as soon as you remember. If it has been more than 10 hours since the missed dose, skip the missed dose and take your dose at the next scheduled time. Do not double the dose of LAGEVRIO to make up for a missed dose. How to take or give a dose of LAGEVRIO through a nasogastric (NG) or orogastric (OG) feeding tube: Wash your hands well with soap and water. Gather the supplies you will need to take or give the prescribed dose of LAGEVRIO. 4 LAGEVRIO capsules 1 liquid measuring cup with mL markings to measure 40 mL of room temperature water 1 clean container with a lid 1 catheter tip syringe. Your healthcare provider should tell you what size catheter tip syringe you will need to take or give a dose of LAGEVRIO. Place the needed supplies on a clean work surface. Follow your healthcare provider s instructions on how to flush the NG or OG feeding tube. Flush the NG or OG feeding tube with 5 mL of water before taking or giving a dose of LAGEVRIO. Carefully open 4 LAGEVRIO capsules, one at a time, and empty the contents into a clean container. Use the liquid measuring cup to measure 40 mL of room temperature water and add to the container containing the capsule contents. Place the lid on the container. Shake to mix the capsule contents and water well for 3 minutes. The capsule contents may not dissolve completely. Remove the lid from the container and draw up all the LAGEVRIO and water mixture into a catheter tip syringe. Give all of the mixture right away through the NG or OG feeding tube. Do not keep the mixture for future use. If any capsule contents are left in the container: Add 10 mL of water to the container, and mix to loosen any capsule contents that are left in the container. Use the catheter tip syringe to draw up all of the mixture in the container. Give the mixture through the NG or OG feeding tube. Repeat this process as needed until you no longer see any capsule contents left in the container or catheter tip syringe. Use the same catheter tip syringe to flush the NG or OG feeding tube 2 times with 5 mL of water (10mL total). Rinse the container, lid and catheter tip syringe well with clean water after use. Place on a clean paper towel until next use. What are the important possible side effects of LAGEVRIO? See, What is the most important information I should know about LAGEVRIO? Allergic Reactions. Allergic reactions can happen in people taking LAGEVRIO, even after only 1 dose. Stop taking LAGEVRIO and call your healthcare provider right away if you get any of the following symptoms of an allergic reaction: hives rapid heartbeat trouble swallowing or breathing swelling of the mouth, lips, or face throat tightness hoarseness skin rash The most common side effects of LAGEVRIO are: diarrhea nausea dizziness These are not all the possible side effects of LAGEVRIO. Not many people have taken LAGEVRIO. Serious and unexpected side effects may happen. This medicine is still being studied, so it is possible that all of the risks are not known at this time. What other treatment choices are there? Veklury (remdesivir) is FDA-approved as an intravenous (IV) infusion for the treatment of mildto-moderate COVID-19 in certain adults and children. Talk with your doctor to see if Veklury is appropriate for you. Like LAGEVRIO, FDA may also allow for the emergency use of other medicines to treat people with COVID-19. Go to https://www.fda.gov/emergency-prep qjodzcjt-uzj-bengggvw/mcm-legalreg fjmqqqi-mwc-unfrin-framework/emerg gofe-mgq-zgxlnauftfaot for more information. It is your choice to be treated or not to be treated with LAGEVRIO. Should you decide not to take it, it will not change your standard medical care. What if I am ? is not recommended during treatment with LAGEVRIO and for 4 days after the last dose of LAGEVRIO. If you are or plan to breastfeed, talk to your healthcare provider about your options and specific situation before taking LAGEVRIO. How do I report side effects with LAGEVRIO? Contact your healthcare provider if you have any side effects that bother you or do not go away. Report side effects to FDA MedWatch at www.fda.gov/medwatch or call 5-078-BDW-9124 ([phone]). How should I store LAGEVRIO? Store LAGEVRIO capsules at room temperature between 68 F to 77 F (20 C to 25 C). Keep LAGEVRIO and all medicines out of the reach of children. How can I learn more about COVID-19? Ask your healthcare provider. Visit www.cdc.gov/COVID19 Contact your local or state public health department. Call [employer] at (toll free in the [place] Visit www.Beeline What Is an Emergency Use Authorization (EUA)? The [place] FDA has made LAGEVRIO available under an emergency access mechanism called an Emergency Use Authorization (EUA) The EUA is supported by a [place] of Health and Human Service ([facility]) declaration that circumstances exist to justify emergency use of drugs and biological products during the COVID-19 pandemic. LAGEVRIO for the treatment of adults with a current diagnosis of owti-xb-thmftxiv COVID-19 who are at high risk for progression to severe COVID-19, including hospitalization or , and for whom alternative COVID-19 treatment options approved or authorized by FDA are not accessible or clinically appropriate, has not undergone the same type of review as an FDAapproved product. In issuing an EUA under the COVID-19 public health emergency, the FDA has determined, among other things, that based on the total amount of scientific evidence available including data from adequate and well-controlled clinical trials, if available, it is reasonable to believe that the product may be effective for diagnosing, treating, or preventing COVID-19, or a serious or life-threatening disease or condition caused by COVID-19; that the known and potential benefits of the product, when used to diagnose, treat, or prevent such disease or condition, outweigh the known and potential risks of such product; and that there are no adequate, approved, and available alternatives. All of these criteria must be met to allow for the product to be used in the treatment of patients during the COVID-19 pandemic. The EUA for LAGEVRIO is in effect for the duration of the COVID-19 declaration justifying emergency use of LAGEVRIO, unless terminated or revoked (after which LAGEVRIO may no longer be used under the EUA). for: [employer] [place] [address], [place] For patent information: www.MicroVision.SpeedTax/research/patent Copyright [employer] [place], [place], [place] and its affiliates. All rights reserved. [id number] Revised: May 2022 documented in this encounter [facility] 07-12-2022 History of Present illness Narrative [facility] Telephone Encounter Date: 07/12/2022 A Telephone Encounter was accomplished with this 77 year old female and we discussed the following concerns and complaints: HPI Obtain verbal consent for visit: eg. Due to the Coronavirus, we are providing our patients with the opportunity for medical visits by phone to help keep everyone healthy. Are you ok with us doing that today? Do you have any family members present today? Remind patient this is a scheduled 15 minute phone/video appointment. Do you have all your medications in front of you for us to review? Did you take your BP, pulse within the last hour? Did you check your sugar today? I know the nurses had asked you to think about the 2 most important things you wanted to speak with me about today, could you share those with me? Akila De Los Santos has consented to this telephone encounter. Persons Present: patient Chief Complaint/Reason: COVID-19 infection. HPI: Patient is a 77-year-old -[place]rist[place] woman with a history of hypertension, diabetes, who is presenting for management of a COVID-19 infection. Patient reports that her symptoms began on Tuesday morning. She complains of being stuffy, coughing. Went to buddhist. Came home and started to feel chills, then hot. Took COVID-19 test which was positive. Continued to have myalgias. Tips of fingers hurt. Took mucinex. No SOB. Has pulse ox at home but hasn't used. No change in taste/smell. No GI symptoms. 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 [START ON 08/08/2022] traMADol (ULTRAM) 50 mg tablet Take 1-2 tablets per day as needed for pain. Use sparingly Do not start before August 08, 2022. traMADol (ULTRAM) 50 mg tablet Take 1 tablet by mouth twice daily for 30 days. Use sparingly solifenacin (VESICARE) 5 mg tablet Take 1 tablet by mouth once daily. blood sugar diagnostic (ACCU-CHEK KAYCEE PLUS TEST STRP) test strip Use as instructed to check blood sugar once daily as needed. rosuvastatin (CRESTOR) 10 mg tablet TAKE 1 TABLET BY MOUTH ONCE DAILY AT BEDTIME albuterol HFA (VENTOLIN HFA) 90 mcg/actuation inhaler Inhale 2 Puffs as instructed every 4 hours as needed for wheezing/shortness of breath. indapamide (LOZOL) 2.5 mg tablet Take 1 tablet by mouth once daily. amLODIPine (NORVASC) 10 mg tablet Take 1 tablet by mouth once daily montelukast (SINGULAIR) 10 mg tablet TAKE 1 TABLET BY MOUTH ONCE DAILY AT BEDTIME citalopram (CELEXA) 20 mg tablet Take 1 tablet by mouth once daily BREO ELLIPTA 200-25 mcg/dose inhaler INHALE 1 PUFF BY MOUTH ONCE DAILY DIRECTED potassium chloride 20 mEq TbER Take 2 tablets by mouth twice daily. valACYclovir (VALTREX) 1 gram Take 1 tablet by mouth once daily doxazosin (CARDURA) 4 mg tablet Take 1 tablet by mouth once daily. primidone (MYSOLINE) 50 mg tablet Take 2 tablets by mouth daily at bedtime. (Patient taking differently: Take 100 mg by mouth daily at bedtime. 1 tablet) Lancets lancets Use as instructed to check blood sugar once daily as needed No current facility-administered medications for this visit. REVIEW OF SYSTEMS: As noted in HPI Data Reviewed: Most recent labs PHYSICAL EXAMINATION: No Vitals were taken today The patient was oriented, alert, with good memory. Speech was appropriate. Total time in direct patient contact = 20 min. Greater than 50% of the time was spent in counseling and/or coordination of care. This Team Access Model visit is a phone encounter. It required patient-provider interaction for the medical decision making as documented below. Assessment / Plan: Nirmatrelvir/Ritonavir (Paxlovid) Eligibility and Patient Discussion [facility] Restriction Criteria: Adult outpatients 18 years and older with ALL of the following: [x] Patient has positive SARS-COV-2 viral test (PCR or antigen test) during current illness [x] Patient has symptoms for 5 days or less [x] Not requiring hospitalization at any time for management of COVID-19 [x] Not requiring supplemental oxygen or a change in baseline supplemental oxygen [x] Not utilized for pre-exposure or post-exposure prophylaxis for prevention of COVID-19 [x] Patient does not have severe renal impairment (eGFR < 30 mL/min) or severe hepatic impairment (Child-Alexander Class C) [x] Meeting at least one of the criteria for high risk of progression to severe COVID-19: [x] Age over 65 years [] Cancer [] Chronic kidney disease [] Chronic liver disease [] Chronic lung diseases, including cystic fibrosis [] Dementia or other neurological conditions [x] Diabetes (type 1 or type 2) [] Disabilities, including Down syndrome and neurodevelopmental disorders [] Heart conditions [] HIV infection [] Immunocompromised state [] Mental health conditions [] Medical related technological dependence (tracheostomy, gastrostomy, or positive pressure ventilation (not related to COVID) [] Overweight and obesity (BMI greater or equal to 25 for adults) [] Physical inactivity [] [] Sickle cell disease or thalassemia [] Smoking, current or former [] Solid organ or blood stem cell transplant [] Stroke or cerebrovascular disease [] Substance use disorders [] Tuberculosis [] People from racial and ethnic minority groups Criteria above are met: Yes Date of Positive Test:07/11/22 Date of Symptom Onset: 07/11/22 Patient received COVID vaccine: Yes Drug-Drug interactions reviewed: No. I have discussed the use of the investigational therapeutic, nirmatrelvir/ritonavir, for the treatment of mild to moderate COVID-19 and its use under Emergency Use Authorization with the patient. The patient was informed that nirmatrelvir/ritonavir is not an FDA approved drug and that it is authorized for use under this Emergency Use Authorization. The patient was also informed of the significant known benefits and potential risks of nirmatrelvir/ritonavir, and the extent to which such potential risks and benefits are unknown. The patient was informed that there is mandatory reporting of all medication errors and serious adverse events potentially related to nirmatrelvir/ritonavir treatment within 7 calendar days from the onset of the event and that events up to 28 days after completion of therapy need to be reported. The discussion included alternatives to receiving nirmatrelvir/ritonavir, including clinical trials, and potential the risks and benefits of those alternatives. The patient was provided electronically with the Fact Sheet for Patients, Parents and Caregivers. The patient was also instructed that in addition to the treatment with nirmatrelvir/ritonavir, he/she should continue to self-isolate and use infection control measures (e.g., wear mask, isolate, social distance, avoid sharing personal items, clean and disinfect high touch surfaces, and frequent handwashing) according to CDC guidelines. The patient stated understanding and gave verbal consent to proceeding with nirmatrelvir/ritonavir treatment. Betty Bueno MD July 12, 2022 2:49 PM ASSESSMENT/PLAN: 1. COVID-19 - ICD9: 079.89, ICD10: U07.1 Discussed isolation and masking recommendations from the CDC. Discussed use of [id number]-wmyngxe cough and cold medications for symptom relief. Discussed medication side effects and the possibility of rebound symptoms after the course of meds has been completed. All questions were answered to patient's stated satisfaction. - MOLNUPIRAVIR 200 MG CAPSULE (EUA) Betty Bueno MD documented in this encounter [facility] 07-12-2022 Miscellaneous Notes Telephone call to patient, states her symptom onset was 07/11/22. Patient reports congestion, body aches, and cough. Patient denies SOB, or fever. Patient scheduled for virtual visit to discuss Paxlovid. documented in this encounter [facility] 07-09-2022 History of Present illness Narrative Review of Systems Constitutional: Negative for activity change, chills, fever and unexpected weight change. Gastrointestinal: Negative for bowel retention or incontinence Genitourinary: Negative for difficulty urinating. Negative for bladder retention or incontinence Musculoskeletal: Positive for arthralgias, back pain and myalgias. Negative for gait problem, joint swelling, neck pain and neck stiffness. Neurological: Negative for weakness, numbness and headaches. Psychiatric/Behavioral: Negative for dysphoric mood, sleep disturbance and suicidal ideas. The patient is not nervous/anxious. Images from the original note were not included. [facility] [place] [facility] Today's Date: 07/09/2022 Last Visit: 05/10/2022 Name: Akila De Los Santos : 1945 Chief Complaint/Reason: Low back pain Interval History: Since last encounter, Akila De Los Santos reports that the chronic problem(s) listed above are worse. She was doing very well until about a week ago, started having pain in the left buttock region, worse with standing and walking. Right side also problematic when walking, but not as severe. She reports this is the place where she had relief after the most recent SI joint injection. She had good (85%) relief in her SI region bilaterally from her SIJ CSI she had 11/26/21. She had 70% relief after Caudal CHAZ 02/01/2022, she reports minimal left lower limb pain since the injection. Continues to have pain in the axial low back, but not severe. States the current medication regimen is allowing for the completion of daily activities and increasing the overall quality of life. Denies any new or worsening side effects. No question data found. Recall: (From 06/2021) She reports periodic tremors in both hands. She reports that she had an Electrodiagnostic Study more than 15 years ago in the upper limbs, does not recall the results, is not interested in seeing Neurology. Current Status: AG SPINE COMBINATION 06/26/2021 09/11/2021 11/04/2021 01/05/2022 03/12/2022 05/10/2022 07/09/2022 Questionnaire URINE DRUG SCREEN - URINE DRUG SCREEN URINE DRUG SCREEN URINE DRUG SCREEN URINE DRUG SCREEN URINE DRUG SCREEN Completed Date 06/26/2021 - 11/04/2021 01/05/2022 03/12/2022 05/10/2022 07/09/2022 Comments - - - phenobarbitol is a metobolite of her Rx Primidone, her UDS was appropriately postive for this - phenobarbitol is a metobolite of her Rx Primidone, her UDS was appropriately postive for this - Questionnaire - NA/OIC - - NA/OIC - - Completed Date - 09/11/2021 - - 03/12/2022 - - Questionnaire - - - - - Opiod Risk Tool - Completed Date - - - - - 05/10/2022 - Comments - - - - - 3 - INTAKE PAIN ASSESSMENT 05/14/2022 07/02/2022 Are you having pain associated with your visit today? No Yes, Provider notified Pain Scales - - Pain Level - 3 Pain Location - Buttocks-Left Description - Aching;Sharp Duration Amount of Time - - Duration Units - Hours Frequency - Intermittent Intervention/Comfort measure - Medication;Reposition;Exercise Pain Assessment - - Current Pain Medications: Opioids: Tramadol 50mg 1-2 times a day #/mo: 30 # remainin Last Filled: 05/25/2022 Last taken: 3pm yesterday NSAIDS: Anti-depressants: Anti-convulsants: Neurontin 600mg TID Muscle relaxants: Others: Tylenol Arthritis Pain Medications Taken to Date (for the chief complaint(s)): Membrane Stabilizers: Neurontin (Gabapentin) NSAIDS: none Opioids: Tramadol Muscle Relaxants: none Topicals: Voltaren Gel, Aspercreme - helps Other Prescription or OTC Pain Medications: none Non-Pain Meds of Note: None Pain Procedures: DATE PROCEDURE IMPROVEMENT 02/01/2022 Caudal CHAZ 70% (07/09/2022 ) 11/26/2021 Bilat SI Joint 85% x nearly 6 months 04/07/2021 Bilat SI Joint 90% x 6 months PAST MEDICAL HISTORY Diagnosis Date Asthma Diabetes mellitus (HCC) DJD (degenerative joint disease) Osteoarthritis of multiple joints PAD (peripheral artery disease) (HCC) TIA (transient ischemic attack) Current Outpatient Medications on File Prior to Visit Medication Sig solifenacin (VESICARE) 5 mg tablet Take 1 tablet by mouth once daily. blood sugar diagnostic (ACCU-CHEK KAYCEE PLUS TEST STRP) test strip Use as instructed to check blood sugar once daily as needed. rosuvastatin (CRESTOR) 10 mg tablet TAKE 1 TABLET BY MOUTH ONCE DAILY AT BEDTIME Diaper,Brief, Adult,Disposable (DEPEND SILHOUETTE WOMEN S/M) Use as directed 3 times daily albuterol HFA (VENTOLIN HFA) 90 mcg/actuation inhaler Inhale 2 Puffs as instructed every 4 hours as needed for wheezing/shortness of breath. indapamide (LOZOL) 2.5 mg tablet Take 1 tablet by mouth once daily. gabapentin (NEURONTIN) 600 mg tablet Take 1 tablet by mouth three times daily for 180 days. amLODIPine (NORVASC) 10 mg tablet Take 1 tablet by mouth once daily traMADol (ULTRAM) 50 mg tablet Take 1-2 tablets per day as needed for pain. Use sparingly montelukast (SINGULAIR) 10 mg tablet TAKE 1 TABLET BY MOUTH ONCE DAILY AT BEDTIME citalopram (CELEXA) 20 mg tablet Take 1 tablet by mouth once daily BREO ELLIPTA 200-25 mcg/dose inhaler INHALE 1 PUFF BY MOUTH ONCE DAILY DIRECTED potassium chloride 20 mEq TbER Take 2 tablets by mouth twice daily. valACYclovir (VALTREX) 1 gram Take 1 tablet by mouth once daily doxazosin (CARDURA) 4 mg tablet Take 1 tablet by mouth once daily. primidone (MYSOLINE) 50 mg tablet Take 2 tablets by mouth daily at bedtime. (Patient taking differently: Take 100 mg by mouth daily at bedtime. 1 tablet) Lancets lancets Use as instructed to check blood sugar once daily as needed Current Facility-Administered Medications on File Prior to Visit Medication perflutren lipid microspheres 1.3 mL in NaCl (PF) 0.9% 10 mL injection (DEFINITY) sodium chloride 0.9 % (flush) 10 mL (BD POSIFLUSH) ALLERGIES Allergen Reactions Aspirin Shortness of Breath Lisinopril Swelling Latex Rash Penicillins Hives, Rash Sulfamethoxazole Hives Data Reviewed: Reviewed personally on today's date Compliance: PDMP website checked and validated. All prescriptions have been APPROPRIATELY filled. No suspicious activity was identified. 07/09/2022 by Bekah Cintron MD Risk Assessment: ISA-7: No flowsheet data found.(0-4) minimal anxiety, (5-9) mild anxiety, (10-14) moderate anxiety, (15-21) severe anxiety PHQ-9: PHQ-9 04/08/2021 02/15/2022 Score 0 3 (0-4) minimal depression, (5-9) mild depression, (10-14) moderate depression, (15-19) moderately severe depression, (20-27) severe depression Current Medications, Past Medical History, Past Surgical History, Family History, Social History and Review of Systems: On today's date, noted above, I have confirmed and edited as necessary, the PFSH and ROS obtained by others. Relevant Imaging: MRI Lumbar spine 09/2019 ([facility] - reviewed 06/26/2021 ): Neural Foraminal Stenosis: None Central Canal Stenosis: [id number]-mi-[id number] at L4-5 Facet-Arthropathy: L1-2, L3-4, L4-5 Disc Protrusion/Bulge: Disc height Loss L1-2, Vertebrae: Minor irregularities inferior end plate T10, Schmorl's note superior L2 end plate with type 1 Modic changes Hardware: Metallic screws left L2 - S1, right L5-S1, Disc implant at L3-4 Alignment: Mild anterolisthesis L4-5 Other: L5 laminectomy MRI LEFT SHOULDER: IMPRESSION: Mild to moderate diffuse supraspinatus tendinosis along with a 2 mm interstitial partial tear at the midportion of the mid to distal tendon. MRI Spine Report No resulted procedures found. Recent labs: Creatinine Date Value Ref Range Status 03/23/2022 0.79 0.58 - 0.96 mg/dL Final No results found for: GFR Glucose, Point of Care Date Value Ref Range Status 02/01/2022 132 (A) 74 - 99 mg/dL Final Comment: Location:[facility], [address] [place] [address], [facility] The Accu-Chek Inform II glucose meter has not been approved for testing on patients receiving intensive medical intervention or therapy and results from this point of care glucose test should not be used for patient management decisions in these cases. Inaccurate results may also occur from other interfering factors, such as N-acetylcysteine (blood concentrations of greater than 5mg/dL), galactose, extremes of hematocrit (<10 or >65), or high doses of ascorbic acid (vitamin C) greater than 3mg/dL. Consider alternate testing mechanisms (e.g. core lab, blood gas instrument) in the above situations. Physical Exam: 07/09/22 1134 Pulse: 66 Resp: 16 SpO2: 95% Constitutional: Well Appearing HEENT: Normal Cephalic, Atraumatic, Non-icteric sclera Eyes: Conjunctiva clear. No discharge from eyes Cardiovascular: Appears well perfused Lymphatic: No visible regional lymphadenopathy Skin: No visible rashes or ecchymosis Psychiatric: Full affect, Alert, Pleasant LUMBAR MUSCULOSKELETAL/NEURO EXAM Inspection: - Symmetric without atrophy Posture: - Normal intact spinal curves Gait: - Normal Spine Range of Motion: - Flexion: normal - Extension: Limited with pain -Rotation: Limited with pain Palpation: - Lumbar Paraspinal Tenderness: None in the Bilateral lumbar paraspinals - Paraspinal Spasms: Mild - Facet Loading: negative - Greater Trochanter: None tenderness Bilateral Strength: LEFT RIGHT Iliopsoas (L2) 5 5 Quadriceps (L3) 5 5 Anterior Tibialis (L4): 5 5 Exten Hallucis Longus (L5) 5 5 Gastrocnemius (S1): 5 5 Muscle Tone: - Normal and symmetric Sensation: - intact to light touch in the L2-S2 Bilateral lower limb dermatomes Reflexes: LEFT RIGHT Patellar (L4) Normal 2+ Normal 2+ Achilles (S1) Normal 2+ Normal 2+ Clonus Negative Negative Hip Range of Motion: - Normal with None pain at end range internal rotation - Normal with None pain at end range external rotation Sacroiliac Maneuvers: - SIJ tenderness: Positive Bilateral - Won's: positive for concordant pain referred over the superior sacral sulcus - Pelvic Distraction: positive for concordant pain referred over the superior sacral sulcus - Sacral Thrust: positive for concordant pain referred over the superior sacral sulcus - Hip Hyperextension: positive for concordant pain referred over the superior sacral sulcus Diagnoses: (M96.1) Post laminectomy syndrome (primary encounter diagnosis) (M54.16) Lumbar radiculopathy (Z79.891) Encounter for long-term use of opiate analgesic (M46.1) Sacroiliitis (HCC) Impression & Plan: 77 year old female with significant past medical history for low back decompressive surgeries x 3, scoliosis, who presents with complaint(s) of ongoing axial low back pain, lower limb radicular symptoms due to spinal stenosis. Has been established with pain management in [place], just moved to [place]. Stable on very low doses of medication. Good relief of buttock pain following SI Joint injections, typically having 6 months relief. Further relief of lower limb pain after Caudal injections. Continues to have axial low back pain, but not severe at this time. Presents today for medication refill. Refill without adjustments were provided after verifying the history noted above, performing a focused physical examination, and reviewing available compliance data including (where available) the PDMP/OARRS system, pill counts, toxicology screens. Akila De Los Santos would benefit from the following to decrease pain, improve function and/or work participation, and improve quality of life: Interventional Procedure(s): bilateral Sacroiliac joint injection under fluoroscopic guidance The risks, benefits, alternative treatment options and prognosis of the procedure were discussed and all of the patient's questions/concerns were addressed to the patient's satisfaction. The patient expressed understanding and gave verbal consent to proceed. Current Anti-Coagulant Use: No Medications: Neurontin 600mg TID - continue Refill Tramadol 50mg, #45/mo - advised again to pickup when scheduled, and we can adjust medication dosing if she isconsistently taking less frequently since she only takes #45/month - we may consider going to #30 per month if that better matches her usage rate Requested Prescriptions No prescriptions requested or ordered in this encounter ISA-7/PHQ-2, and ORT: Reviewed 01/05/2022 Functional Restorationism: Home Exercise Program: Prescribed on 12/19/2020 for the lumbar region(s) Range of motion exercises and Stretches To be performed at least 3 times per week under this Physician's supervision Depending on response to the above plan, consider: Repeat SI Joint injection; Switch to Lyrica; SI Joint RFA (prefers to avoid RFA at this time); MBB/RFA; Repeat Caudal Epidural Steroid Injection Follow-up: 2 month In person ISAURA UDS last visit was reviewed and was consistent. Patient reports they are happy with current treatment care plan. At this time will continued the patient's opioids today for 60 days. The patient continues to see benefit and improvement in their quality of life with adequate analgesia and ADLS's maintained. No adverse effects, no aberrant behaviors noted; OARRS reviewed and consistent. Risks of long-term medication use was reviewed and Patient advised the above medications may cause impairment of judgement while driving or operating machinery. Patient instructed on safe storage of medications We will re-evaluate opiate regimen in 60 days, office visit, to determine efficacy of treatment to ensure that we are using the lowest dose for maximum benefit. Bekah Cintron MD [facility] There are no Patient Instructions on file for this visit. documented in this encounter [facility] 06-29-2022 Miscellaneous Notes I'm wondering if there is any program currently ongoing that may assist this patient in decreasing the cost of Myrbetric for her OAB. There is a risk of esophageal erosions with taking an anticholinergic and potassium pills. Any insight would be appreciated. NHM documented in this encounter [facility] 05-18-2022 Instructions Anjel Nguyen MD - 05/18/2022 5:28 PM EST Same meds documented in this encounter [facility] 05-18-2022 History of Present illness Narrative VIRTUAL VISIT PROGRESS NOTE This is a virtual visit. It required patient-provider interaction for the medical decision making as documented below. HISTORY REVIEWED (electronic chart updated): Obtain verbal consent for visit: eg. Due to the Coronavirus, we are providing our patients with the opportunity for medical visits by phone to help keep everyone healthy. Are you ok with us doing that today? Do you have any family members present today? Do you have all your medications in front of you for us to review? Did you take your BP, pulse within the last hour? Did you check your sugar today? Akila De Los Santos has consented to this phone encounter. Akila De Los Santos is a 77 year old female seen for f/u mult issues. Persons Present: patient HPI: Last visit 05/03/[address] Bueno and we discussed the following: Hypertension This is a chronic problem. The current episode started more than 1 year ago. The problem is controlled. Associated symptoms include peripheral edema. Pertinent negatives include no blurred vision, chest pain, headaches or shortness of breath. There are no associated agents to hypertension. Risk factors for coronary artery disease include post-menopausal state and diabetes mellitus. Past treatments include diuretics and calcium channel blockers. The current treatment provides moderate improvement. Compliance problems include exercise. Diabetes She presents for her follow-up diabetic visit. She has type 2 diabetes mellitus. There are no hypoglycemic associated symptoms. Pertinent negatives for hypoglycemia include no headaches. Associated symptoms include polyuria. Pertinent negatives for diabetes include no blurred vision, no chest pain, no polydipsia, no polyphagia and no visual change. There are no hypoglycemic complications. Risk factors for coronary artery disease include hypertension, obesity and diabetes mellitus. She is compliant with treatment most of the time. HTN- No CP/SOB/FAIRCHILD.. No vision changes. C/o nocturia and urinary urgency: Wakes her up at night. Incontinence w/ stress/urge. Wears liners DMII: Knows why her recent A1c trended up. Blames candy. Now doing sugar-free candy. Working 2 days/week. Discussed diet. Previously well controlled so won't change meds. Will see how next A1c turns out. At the end of last visit we did the followin. Type 2 diabetes mellitus with peripheral neuropathy (HCC) - ICD9: 250.60, 357.2, ICD10: E11.42 (primary diagnosis) worsening control - Continue current medications - Encouraged regular aerobic exercise and weight loss - Discussed eliminating or at least minimizing use of sweets/candy and other sugary snacks. Employ well balanced diet, obtaining most of carbs from vegetables. Eat health protein (lean meats, eggs, fish) along w/ carbs. Today the patient had the following concerns: Started myrbetric daily. Took a week or so to start working, noted a big improvement. Was getting up at night q2h, now once-twice at night. No constipation, some dry mouth. No other side effects. Check BS 2/week - running fasting 120s, watching diet better. Taking all meds Breathing is good. BP last night was 146/85. Pain is managed OK with Dr Cintron, takes tramadol 0-1/day and ratna this. 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 Use sparingly Do not start before May 25, 2022. Diaper,Brief, Adult,Disposable (DEPEND SILHOUETTE WOMEN S/M) Use as directed 3 times daily mirabegron (MYRBETRIQ) 25 mg Tb24 Take 1 tablet by mouth once daily. albuterol HFA (VENTOLIN HFA) 90 mcg/actuation inhaler Inhale 2 Puffs as instructed every 4 hours as needed for wheezing/shortness of breath. indapamide (LOZOL) 2.5 mg tablet Take 1 tablet by mouth once daily. [START ON 05/23/2022] traMADol (ULTRAM) 50 mg tablet Take 1 tablet by mouth twice daily for 30 days. Use sparingly Do not start before May 23, 2022. gabapentin (NEURONTIN) 600 mg tablet Take 1 tablet by mouth three times daily for 180 days. amLODIPine (NORVASC) 10 mg tablet Take 1 tablet by mouth once daily traMADol (ULTRAM) 50 mg tablet Take 1-2 tablets per day as needed for pain. Use sparingly montelukast (SINGULAIR) 10 mg tablet TAKE 1 TABLET BY MOUTH ONCE DAILY AT BEDTIME citalopram (CELEXA) 20 mg tablet Take 1 tablet by mouth once daily BREO ELLIPTA 200-25 mcg/dose inhaler INHALE 1 PUFF BY MOUTH ONCE DAILY DIRECTED potassium chloride 20 mEq TbER Take 2 tablets by mouth twice daily. valACYclovir (VALTREX) 1 gram Take 1 tablet by mouth once daily doxazosin (CARDURA) 4 mg tablet Take 1 tablet by mouth once daily. primidone (MYSOLINE) 50 mg tablet Take 2 tablets by mouth daily at bedtime. (Patient taking differently: Take 100 mg by mouth daily at bedtime. 1 tablet) rosuvastatin (CRESTOR) 10 mg tablet TAKE 1 TABLET BY MOUTH ONCE DAILY AT BEDTIME blood sugar diagnostic (ACCU-CHEK KAYCEE PLUS TEST STRP) test strip Use as instructed to check blood sugar once daily as needed. Lancets lancets Use as instructed to check blood sugar once daily as needed Current Facility-Administered Medications Medication Dose Route Frequency perflutren lipid microspheres 1.3 mL in NaCl (PF) 0.9% 10 mL injection (DEFINITY) INTRAVENOUS DIRECTED PRN sodium chloride 0.9 % (flush) 10 mL (BD POSIFLUSH) 10 mL INTRAVENOUS DIRECTED PRN Data Reviewed: Most recent labs and imaging results. REVIEW OF SYSTEMS: GENERAL: feeling well without fatigue, no recent change in weight RESPIRATORY: no cough, no wheezing or shortness of breath CARDIOVASCULAR: no chest pain, no palpitations : see hpi, improved, still using depends for occ incontinence VIDEO EXAM: (if completed, performed via video enabled technology) The patient was oriented, alert, with good memory. Speech was appropriate. No exam performed PHYSICAL EXAMINATION: Total time in direct patient contact = 15 min. Greater than 50% of the time was spent in counseling and/or coordination of care. This Team Access Model visit is a phone encounter. It required patient-provider interaction for the medical decision making as documented below. Add Assessment/Plan ASSESSMENT/PLAN: 1. Type 2 diabetes mellitus 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) - ICD9: 250.00, ICD10: E11.9 (primary diagnosis) Same meds 2. OAB (overactive bladder) - ICD9: 596.51, ICD10: N32.81 Cont same meds 3. Primary hypertension - ICD9: 401.9, ICD10: I10 - good control - Continue current medication(s) - Recommend home blood pressure monitoring, to bring results in on next visit - Goal of BP <130/80 Anjel Nguyen MD Followup: Return in about 3 months (around 08/16/2022), or Dr Bueno. The above medical document was transcribed using a voice recognition program. As such, the contents may contain grammatical errors. documented in this encounter [facility] 05-10-2022 History of Present illness Narrative Review of Systems Constitutional: Negative for activity change, chills, fever and unexpected weight change. Gastrointestinal: Negative for bowel retention or incontinence Genitourinary: Negative for difficulty urinating. Negative for bladder retention or incontinence Musculoskeletal: Positive for arthralgias, back pain, gait problem, joint swelling, myalgias and neck pain. Negative for neck stiffness. Neurological: Positive for weakness. Negative for numbness and headaches. Psychiatric/Behavioral: Negative for dysphoric mood, sleep disturbance and suicidal ideas. The patient is not nervous/anxious. Images from the original note were not included. [facility] Phone: Date of Evaluation: 05/10/2022 Patient Name: Akila De Los Santos : 1945 Subjective: No chief complaint on file. . HPI: 06/04 Akila De Los Santos is a 77 year old female who presents for follow up evaluation of LBP. Denies LOC of bowel and bladder, no BLE weakness, no recent falls. Patient tolerating medications without side effects. Medications provide patient the ability to perform activities of daily living and maintain quality of life. She reports neck and low back pain remains unchanged, denies radicular sx. She has neuropathy in bilateral feet which is unchanged. Tolerating the Tramadol without side effects. Plan from last visit:Repeat SI Joint injection; Switch to Lyrica; SI Joint RFA (prefers to avoid RFA at this time); MBB/RFA; Repeat Caudal Epidural Steroid Injection Interval history: 03/12/22 : : Since last encounter, Akila De Los Santos reports that the chronic problem(s) listed above are Unchanged. Low back pain hurts worse while walking. Most of her pain is axial in nature and radiates to her left lateral thigh to her knee when walking. Her low back pain increases when doing laundry. She is still getting good (85%) relief in her SI region bilaterally from her SIJ CSI she had 11/26/21. She had 70% relief after Caudal CHAZ 02/01/2022, she reports minimal left lower limb pain since the injection. Continues to have pain in the axial low back, but not severe. States the current medication regimen is allowing for the completion of daily activities and increasing the overall quality of life. Denies any new or worsening side effects Pain Assessment: INTAKE PAIN ASSESSMENT 03/12/2022 05/03/2022 Are you having pain associated with your visit today? Yes, Provider notified Yes, Provider notified Pain Scales Verbal (Numeric Rating or Visual Analog Scale) Verbal (Numeric Rating or Visual Analog Scale) Pain Level 0 1 Pain Location Back-Lower Back-Lower Description Aching Aching Duration Amount of Time - - Duration Units Years Years Frequency Intermittent Continuous Intervention/Comfort measure Medication;Reposition;Relaxation;P ositioning - Pain Assessment - - OARRS Report: PDMP website checked and validated. All prescriptions have been APPROPRIATELY filled. No suspicious activity was identified. 05/06/2022 by Ashley Fleming APRN.NELY Past Medical History: PAST MEDICAL HISTORY Diagnosis Date Asthma Diabetes mellitus (HCC) DJD (degenerative joint disease) Osteoarthritis of multiple joints PAD (peripheral artery disease) (HCC) TIA (transient ischemic attack) Past Surgical History: PAST SURGICAL HISTORY Procedure Laterality Date CATARACT EXTRACTION HX Left 11/2016 CATARACT EXTRACTION HX Right 11/2018 TOTAL ABDOM HYSTERECTOMY Family History: FAMILY HISTORY Problem Relation Age of Onset Blindness Maternal Grandmother Social History: Social History Tobacco Use Smoking status: Former Types: Cigarettes Smokeless tobacco: Never Vaping Use Vaping Use: Never used Substance Use Topics Alcohol use: Never Drug use: Never Allergies: ALLERGIES Allergen Reactions Aspirin Shortness of Breath Lisinopril Swelling Latex Rash Penicillins Hives, Rash Sulfamethoxazole Hives Current Medications: Diaper,Brief, Adult,Disposable (DEPEND SILHOUETTE WOMEN S/M)^Use as directed 3 times daily^Disp: 73 Each^Rfl: 1 mirabegron (MYRBETRIQ) 25 mg Tb24^Take 1 tablet by mouth once daily.^Disp: 30 tablet^Rfl: 1 albuterol HFA (VENTOLIN HFA) 90 mcg/actuation inhaler^Inhale 2 Puffs as instructed every 4 hours as needed for wheezing/shortness of breath.^Disp: 18 g^Rfl: 4 indapamide (LOZOL) 2.5 mg tablet^Take 1 tablet by mouth once daily.^Disp: 90 tablet^Rfl: 1 [START ON 05/23/2022] traMADol (ULTRAM) 50 mg tablet^Take 1 tablet by mouth twice daily for 30 days. Use sparingly Do not start before May 23, 2022.^Disp: 45 tablet^Rfl: 0 traMADol (ULTRAM) 50 mg tablet^Take 1 tablet by mouth twice daily for 30 days. Use sparingly Do not start before April 23, 2022.^Disp: 45 tablet^Rfl: 0 gabapentin (NEURONTIN) 600 mg tablet^Take 1 tablet by mouth three times daily for 180 days.^Disp: 90 tablet^Rfl: 5 amLODIPine (NORVASC) 10 mg tablet^Take 1 tablet by mouth once daily^Disp: 90 tablet^Rfl: 1 traMADol (ULTRAM) 50 mg tablet^Take 1-2 tablets per day as needed for pain. Use sparingly^Disp: 45 tablet^Rfl: 0 montelukast (SINGULAIR) 10 mg tablet^TAKE 1 TABLET BY MOUTH ONCE DAILY AT BEDTIME^Disp: 90 tablet^Rfl: 1 citalopram (CELEXA) 20 mg tablet^Take 1 tablet by mouth once daily^Disp: 90 tablet^Rfl: 1 BREO ELLIPTA 200-25 mcg/dose inhaler^INHALE 1 PUFF BY MOUTH ONCE DAILY DIRECTED^Disp: 60 Each^Rfl: 11 potassium chloride 20 mEq TbER^Take 2 tablets by mouth twice daily.^Disp: 360 tablet^Rfl: 4 valACYclovir (VALTREX) 1 gram^Take 1 tablet by mouth once daily^Disp: 90 tablet^Rfl: 3 doxazosin (CARDURA) 4 mg tablet^Take 1 tablet by mouth once daily.^Disp: 90 tablet^Rfl: 3 primidone (MYSOLINE) 50 mg tablet^Take 2 tablets by mouth daily at bedtime.^Disp: 180 tablet^Rfl: 1 (Patient taking differently: Take 100 mg by mouth daily at bedtime. 1 tablet) rosuvastatin (CRESTOR) 10 mg tablet^TAKE 1 TABLET BY MOUTH ONCE DAILY AT BEDTIME^Disp: 90 tablet^Rfl: 3 blood sugar diagnostic (ACCU-CHEK KAYCEE PLUS TEST STRP) test strip^Use as instructed to check blood sugar once daily as needed.^Disp: 100 Each^Rfl: 11 Lancets lancets^Use as instructed to check blood sugar once daily as needed^Disp: 100 Each^Rfl: 11 I have confirmed and edited as necessary, the PFSH and ROS obtained by others. MEDICATION NAME tramadol STRENGTH 50 LAST FILL DATE 04/23/2022 DATE LAST DOSE TAKEN 05/09/22 QUANTITY FILLED 45 QUANTITY REMAINING 30 COMMENTS patient takes prn Urine Drug Screen Questionnaire URINE DRUG SCREEN Completed Date 05/10/2022 Opioid Risk Tool Opiod Risk Tool Date Completed 05/10/2022 Comments 3 Objective: There were no vitals taken for this visit. Physical Exam Constitutional: Appearance: Normal appearance. HENT: Head: Normocephalic. Right Ear: External ear normal. Left Ear: External ear normal. Eyes: Extraocular Movements: Extraocular movements intact. Cardiovascular: Pulses: Normal pulses. Pulmonary: Effort: Pulmonary effort is normal. Musculoskeletal: Comments: BLE strength 5/5 symmetrical BLE sensation intact and symmetrical Patellar reflexes +2 Limited cervical and lumbar ROM Tenderness L4/S1 paraspinal musculature - occasional upper back winder grasps equal Skin: General: Skin is warm and dry. Capillary Refill: Capillary refill takes 2 to 3 seconds. Neurological: General: No focal deficit present. Mental Status: She is alert and oriented to person, place, and time. Psychiatric: Mood and Affect: Mood normal. Behavior: Behavior normal. Imaging: MRI Spine Report No resulted procedures found. ASSESSMENT/PLAN: 1. Post laminectomy syndrome - ICD9: 722.80, ICD10: M96.1 (primary diagnosis) 2. Lumbar radiculopathy - ICD9: 724.4, ICD10: M54.16 3. Sacroiliitis (HCC) - ICD9: 720.2, ICD10: M46.1 4. Encounter for long-term use of opiate analgesic - ICD9: V58.69, ICD10: Z79.891 Patient reports they are happy with current treatment care path. For this reason I will refill the patient's opioids today for 60 days. The patient continues to see benefit and improvement in their quality of life and ability to maintain ADLs. Patient advised that the medications may cause impairment of judgement while driving or operating machinery. Patient instructed on safe storage of medications We will re-evaluate the opiate regimen in 60 days at an office visit to determine efficacy of treatment to ensure that we are using the lowest dose for maximum benefit. oarrs was checked- no medication discrepancy or aberrations noted Adequate analgesia, ADLS's maintained, no adverse effects, no aberrant behaviors noted Examined patient and confirmed feliz findings on history and examination and ROS as noted above. Some elements of my note were copied from 03/12/22 , which have been updated where appropriate and reflect my current medical decision making for today at 05/10/22. UDS 03/12/22 reviewed and appropriate UDS today Tramadol refilled to reflect usage- she takes prn- had 30 left over today will refill with quantity of 30 moving forward. Patient verbalizes understanding of home going instructions and is in agreement with the discharge plan. Patient questions were answered to their satisfaction. Ashley Fleming APRN.NELY No follow-ups on file. This note was partially generated using [email or web address] voice recognition system. documented in this encounter [facility] 05-10-2022 Instructions Ashley Fleming APRN.NELY - 05/10/2022 9:11 AM EST Ice and heat as tolerated Activity as tolerated documented in this encounter [facility] 05-04-2022 Instructions Betty Bueno MD - 05/04/2022 4:16 AM EST TIPS ON PRACTICING PELVIC FLOOR (KEGEL) EXERCISES How to identify the correct muscle? 1. To find the correct muscle, place your finger inside your vagina or rectum. Try to squeeze around your finger. That is the muscle you want to exercise! This muscle is the same one that you use to hold back gas or a bowel movement. 2. Remember!! Never use your stomach, legs, or buttock muscles. The most common mistake is using too many muscles. To find out if you are also lisseth your stomach muscles, place your hand on your abdomen while you squeeze your pelvic floor muscle. If you feel your abdomen move, then you are also moving these muscles. 3. These exercises can be practiced anytime, in any place. Since this muscle is internal, no one can see you exercising this muscle. How do I perform the exercise? 1. Squeeze the muscle which you identified earlier. Squeeze and hold for 10 seconds, then relax for 10 second period. IT IS JUST IMPORTANT TO RELAX IT IS TO CONTRACT THIS MUSCLE! 2. Perform 15 exercises in the morning, 15 in the afternoon, 20 at night. You can also do them for 10 minutes, 3 times a day. Try to work up to doing 25 exercises at one time. When you first begin to exercise these muscles, your muscle may tire easily and you may not be able to contract and squeeze of 10 seconds. However, slowly over a 2 week period, you will build to 10 second contractions. When will I notice a change? In approximately 2 weeks of consistent daily exercises, you will notice less accidents (incontinence and leakage). In one month, you will see an even bigger difference. Can these exercises harm me? No! These exercises cannot harm you in any way. Most patients find them relaxing and easy. If you get back or stomach pain after you exercise, then you are rare probably trying too hard and using stomach and/or back muscles. Go back and find the muscle and remember this exercise should feel mild and easy. Remember to focus on relaxation, as well as contraction of the muscle. In the time, you will learn to practice effortlessly. Eventually, work these exercises in as part of your lifestyle, like brushing your teeth or eating a meal. This will help you to remain successful for a lifetime! If you have any other questions or concerns, please do not hesitate to call. [facility] Voiding Dysfunction [facility] Female Urology [address] [address] documented in this encounter [facility] 05-03-2022 Miscellaneous Notes You may offer any of the following: TuesdayMay 18: 8:40, 9, 9:20, 9:40, 10 am. Betty Bueno MD Laura You have no available appt untjune Please let me know Syed Cunningham documented in this encounter [facility] 05-03-2022 History of Present illness Narrative Subjective The history is provided by the patient. Hypertension This is a chronic problem. The current episode started more than 1 year ago. The problem is controlled. Associated symptoms include peripheral edema. Pertinent negatives include no blurred vision, chest pain, headaches or shortness of breath. There are no associated agents to hypertension. Risk factors for coronary artery disease include post-menopausal state and diabetes mellitus. Past treatments include diuretics and calcium channel blockers. The current treatment provides moderate improvement. Compliance problems include exercise. Diabetes She presents for her follow-up diabetic visit. She has type 2 diabetes mellitus. There are no hypoglycemic associated symptoms. Pertinent negatives for hypoglycemia include no headaches. Associated symptoms include polyuria. Pertinent negatives for diabetes include no blurred vision, no chest pain, no polydipsia, no polyphagia and no visual change. There are no hypoglycemic complications. Risk factors for coronary artery disease include hypertension, obesity and diabetes mellitus. She is compliant with treatment most of the time. HTN- No CP/SOB/FAIRCHILD.. No vision changes. C/o nocturia and urinary urgency: Wakes her up at night. Incontinence w/ stress/urge. Wears liners. DMII: Knows why her recent A1c trended up. Blames candy. Now doing sugar-free candy. Working 2 days/week. Discussed diet. Previously well controlled so won't change meds. Will see how next A1c turns out. Hemoglobin A1C (%) Date Value 03/23/2022 8.4 Hemoglobin A1C (POCT) (%) Date Value 08/28/2021 7.1 02/13/2021 6.2 Ankle swellling- uses support socks. Helps. Shaking (UE tremulousness): Following w/ Neurology. Dx'ed w/ functional tremor. Given exercises to do. Says exercises help. Neuro. Ashtma: doing well. Uses rescue inhaler <1x/mo. No recent exacerbations. Review of Systems Eyes: Negative for blurred vision. Respiratory: Negative for shortness of breath. Cardiovascular: Negative for chest pain. Neurological: Negative for headaches. Endo/Heme/Allergies: Negative for polydipsia and polyphagia. BP 121/67 Pulse 85 Temp (!) 35.9 C (96.7 F) Ht 5' (1.524 m) Wt 156 lb (70.8 kg) BMI 30.47 kg/m Objective Physical Exam Vitals and nursing note reviewed. HENT: Head: Normocephalic and atraumatic. Right Ear: External ear normal. Left Ear: External ear normal. Nose: Nose normal. Mouth/Throat: Pharynx: No oropharyngeal exudate. Eyes: General: No scleral icterus. Conjunctiva/sclera: Conjunctivae normal. Pupils: Pupils are equal, round, and reactive to light. Cardiovascular: Rate and Rhythm: Normal rate and regular rhythm. Heart sounds: Normal heart sounds. No murmur heard. No friction rub. No gallop. Pulmonary: Effort: Pulmonary effort is normal. No respiratory distress. Breath sounds: Normal breath sounds. No wheezing or rales. Abdominal: General: Bowel sounds are normal. There is no distension. Palpations: Abdomen is soft. Tenderness: There is no abdominal tenderness. There is no guarding or rebound. Musculoskeletal: General: Swelling present. No tenderness or deformity. Normal range of motion. Skin: General: Skin is warm and dry. Coloration: Skin is not pale. Findings: No erythema or rash. Neurological: Mental Status: She is alert. Comments: Mild intermittent tremor Psychiatric: Mood and Affect: Affect normal. ASSESSMENT/PLAN: 1. Type 2 diabetes mellitus with peripheral neuropathy (HCC) - ICD9: 250.60, 357.2, ICD10: E11.42 (primary diagnosis) worsening control - Continue current medications - Encouraged regular aerobic exercise and weight loss - Discussed eliminating or at least minimizing use of sweets/candy and other sugary snacks. Employ well balanced diet, obtaining most of carbs from vegetables. Eat health protein (lean meats, eggs, fish) along w/ carbs. 2. Mixed incontinence - ICD9: 788.33, ICD10: N39.46 - Practice [facility] - DEPEND SIL[employer]TE FOR WOMEN S/M 3. Hypertension, unspecified type - ICD9: 401.9, ICD10: I10 - good control - Continue current medication(s) - Encouraged dietary sodium restriction/DASH diet - Recommended regular aerobic exercise. - Recommend home blood pressure monitoring, to bring results in on next visit - Goal of BP <130/80 - Will consider decreasing diuretic in the future if nocturia continues 4. Mild intermittent asthma without complication - ICD9: 493.90, ICD10: J45.20 Mild intermittent Asthma stable - Avoidance of triggers recommended Nkosi Ximena, MD documented in this encounter [facility] 04-22-2022 Miscellaneous Notes Addended by: BEKAH CINTRON on: 04/22/2022 05:18 PM Modules accepted: Orders PDMP reviewed, confirmed last Tramadol filled on 03/04. Will send in new script for 04/23 and another for 05/23. Bekah Cintron III, MD, MAY[facility] calling requesting new prescriptions for Tramadol 50mg - 45 tablet. Patient did not rock picker prescription on Apr 03, and it is now , that will also push the Bhupinder prescription back. Requesting two new scripts to be sent to pharmacy. Please advise. Vincent Singh documented in this encounter [facility] 03-23-2022 Miscellaneous Notes Patient has several refills. Ivania Caro MA documented in this encounter [facility] 03-12-2022 History of Present illness Narrative Review of Systems Constitutional: Negative for activity change, chills, fever and unexpected weight change. Gastrointestinal: Negative for bowel retention or incontinence Genitourinary: Negative for difficulty urinating. Negative for bladder retention or incontinence Musculoskeletal: Positive for arthralgias, back pain, gait problem, joint swelling, myalgias, neck pain and neck stiffness. Neurological: Negative for weakness, numbness and headaches. Psychiatric/Behavioral: Negative for dysphoric mood, sleep disturbance and suicidal ideas. The patient is not nervous/anxious. Images from the original note were not included. [facility] Today's Date: 03/12/2022 Last Visit: 01/05/2022 Name: Akila De Los Santos : 1945 Chief Complaint/Reason: Low back pain HPI: 76 year old female with significant past medical history for low back decompressive surgeries x 3, scoliosis, who presents with complaint(s) of ongoing axial low back pain, lower limb radicular symptoms due to spinal stenosis. Has been established with pain management in [place], just moved to [place]. Stable on very low doses of medication. Good relief of pain following SI Joint injections. Interval History: Since last encounter, Aklia De Los Santos reports that the chronic problem(s) listed above are Unchanged. Low back pain hurts worse while walking. Most of her pain is axial in nature and radiates to her left lateral thigh to her knee when walking. Her low back pain increases when doing laundry. She is still getting good (85%) relief in her SI region bilaterally from her SIJ CSI she had 11/26/21. She had 70% relief after Caudal CHAZ 02/01/2022, she reports minimal left lower limb pain since the injection. Continues to have pain in the axial low back, but not severe. States the current medication regimen is allowing for the completion of daily activities and increasing the overall quality of life. Denies any new or worsening side effects. No question data found. Recall: (From 06/2021) She reports periodic tremors in both hands. She reports that she had an Electrodiagnostic Study more than 15 years ago in the upper limbs, does not recall the results, is not interested in seeing Neurology. States the current medication regimen is allowing for the completion of daily activities and increasing the overall quality of life. Denies any new or worsening side effects. Current Status: AG SPINE COMBINATION 01/30/2021 04/30/2021 06/26/2021 09/11/2021 11/04/2021 01/05/2022 03/12/2022 Questionnaire URINE DRUG SCREEN - URINE DRUG SCREEN - URINE DRUG SCREEN URINE DRUG SCREEN URINE DRUG SCREEN Completed Date 01/30/2021 - 06/26/2021 - 11/04/2021 01/05/2022 03/12/2022 Comments - - - - - phenobarbitol is a metobolite of her Rx Primidone, her UDS was appropriately postive for this - Questionnaire NA/OIC - - NA/OIC - - NA/OIC Completed Date 01/30/2021 - - 09/11/2021 - - 03/12/2022 Questionnaire - Opiod Risk Tool - - - - - Completed Date - 04/30/2021 - - - - - INTAKE PAIN ASSESSMENT 02/01/2022 02/16/2022 Are you having pain associated with your visit today? Yes, Provider notified No Pain Scales Verbal (Numeric Rating or Visual Analog Scale) - Pain Level 4 - Pain Location (No Data) - Description Aching - Duration Amount of Time - - Duration Units Years - Frequency Continuous - Intervention/Comfort measure Relaxation - Pain Assessment - - Current Pain Medications: Opioids: Tramadol 50mg 1-2 times a day #/mo: 45 # remainin Last Filled: 03/04/2022 (Did not fill 01/2022 script) Last taken: 11am today NSAIDS: Anti-depressants: Anti-convulsants: Neurontin 600mg TID Muscle relaxants: Others: Tylenol Arthritis Pain Medications Taken to Date (for the chief complaint(s)): Membrane Stabilizers: Neurontin (Gabapentin) NSAIDS: none Opioids: Tramadol Muscle Relaxants: none Topicals: Voltaren Gel, Aspercreme - helps Other Prescription or OTC Pain Medications: none Non-Pain Meds of Note: None Pain Procedures: DATE PROCEDURE IMPROVEMENT 02/01/2022 Caudal CHAZ 70% (03/12/2022 ) 11/26/2021 Bilat SI Joint 85% 04/07/2021 Bilat SI Joint 90% x 6 months PAST MEDICAL HISTORY Diagnosis Date Asthma Diabetes mellitus (HCC) DJD (degenerative joint disease) Osteoarthritis of multiple joints PAD (peripheral artery disease) (HCC) TIA (transient ischemic attack) Current Outpatient Medications on File Prior to Visit Medication Sig valACYclovir (VALTREX) 1 gram Take 1 tablet by mouth once daily doxazosin (CARDURA) 4 mg tablet Take 1 tablet by mouth once daily. indapamide (LOZOL) 2.5 mg tablet Take 1 tablet by mouth once daily. primidone (MYSOLINE) 50 mg tablet Take 2 tablets by mouth daily at bedtime. tiZANidine (ZANAFLEX) 4 mg tablet Take 1 tablet by mouth every 8 hours as needed. gabapentin (NEURONTIN) 600 mg tablet Take 1 tablet by mouth three times daily for 180 days. amLODIPine (NORVASC) 10 mg tablet Take 1 tablet by mouth once daily. citalopram (CELEXA) 20 mg tablet Take 1 tablet by mouth once daily. montelukast (SINGULAIR) 10 mg tablet Take 1 tablet by mouth daily at bedtime. BREO ELLIPTA 200-25 mcg/dose inhaler Inhale 1 Inhalation as instructed once daily. albuterol HFA (VENTOLIN HFA) 90 mcg/actuation inhaler Inhale 2 Puffs as instructed every 4 hours as needed for wheezing/shortness of breath. rosuvastatin (CRESTOR) 10 mg tablet TAKE 1 TABLET BY MOUTH ONCE DAILY AT BEDTIME potassium chloride 20 mEq TbER Take 2 tablets by mouth twice daily. blood sugar diagnostic (ACCU-CHEK KAYCEE PLUS TEST STRP) test strip Use as instructed to check blood sugar once daily as needed. Lancets lancets Use as instructed to check blood sugar once daily as needed Current Facility-Administered Medications on File Prior to Visit Medication perflutren lipid microspheres 1.3 mL in NaCl (PF) 0.9% 10 mL injection (DEFINITY) sodium chloride 0.9 % (flush) 10 mL (BD POSIFLUSH) ALLERGIES Allergen Reactions Aspirin Shortness of Breath Lisinopril Swelling Latex Rash Penicillins Hives, Rash Sulfamethoxazole Hives Data Reviewed: Reviewed personally on today's date Compliance: PDMP website checked and validated. All prescriptions have been APPROPRIATELY filled. No suspicious activity was identified. 03/12/2022 by Bekah Cintron MD Risk Assessment: ISA-7: No flowsheet data found.(0-4) minimal anxiety, (5-9) mild anxiety, (10-14) moderate anxiety, (15-21) severe anxiety PHQ-9: PHQ-9 04/08/2021 02/15/2022 Score 0 3 (0-4) minimal depression, (5-9) mild depression, (10-14) moderate depression, (15-19) moderately severe depression, (20-27) severe depression Current Medications, Past Medical History, Past Surgical History, Family History, Social History and Review of Systems: On today's date, noted above, I have confirmed and edited as necessary, the PFSH and ROS obtained by others. Relevant Imaging: MRI Lumbar spine 09/2019 ([facility] - reviewed 06/26/2021 ): Neural Foraminal Stenosis: None Central Canal Stenosis: [id number] at L4-5 Facet-Arthropathy: L1-2, L3-4, L4-5 Disc Protrusion/Bulge: Disc height Loss L1-2, Vertebrae: Minor irregularities inferior end plate T10, Schmorl's note superior L2 end plate with type 1 Modic changes Hardware: Metallic screws left L2 - S1, right L5-S1, Disc implant at L3-4 Alignment: Mild anterolisthesis L4-5 Other: L5 laminectomy MRI LEFT SHOULDER: IMPRESSION: Mild to moderate diffuse supraspinatus tendinosis along with a 2 mm interstitial partial tear at the midportion of the mid to distal tendon. MRI Spine Report No resulted procedures found. Recent labs: Creatinine Date Value Ref Range Status 09/07/2021 0.94 0.58 - 0.96 mg/dL Final No results found for: GFR Glucose, Point of Care Date Value Ref Range Status 02/01/2022 132 (A) 74 - 99 mg/dL Final Comment: Location:[facility], [address] [place] [address], [place], [place], [facility] The Accu-Chek Inform II glucose meter has not been approved for testing on patients receiving intensive medical intervention or therapy and results from this point of care glucose test should not be used for patient management decisions in these cases. Inaccurate results may also occur from other interfering factors, such as N-acetylcysteine (blood concentrations of greater than 5mg/dL), galactose, extremes of hematocrit (<10 or >65), or high doses of ascorbic acid (vitamin C) greater than 3mg/dL. Consider alternate testing mechanisms (e.g. core lab, blood gas instrument) in the above situations. Physical Exam: 03/12/22 1316 Pulse: 88 Resp: 16 SpO2: 99% Constitutional: Well Appearing HEENT: Normal Cephalic, Atraumatic, Non-icteric sclera Eyes: Conjunctiva clear. No discharge from eyes Cardiovascular: Appears well perfused Lymphatic: No visible regional lymphadenopathy Skin: No visible rashes or ecchymosis Psychiatric: Full affect, Alert, Pleasant LUMBAR MUSCULOSKELETAL/NEURO EXAM Inspection: - Symmetric without atrophy Posture: - Normal intact spinal curves Gait: - Normal Spine Range of Motion: - Flexion: Limited with pain - Extension: Limited with pain -Rotation: Limited with pain Palpation: - Lumbar Paraspinal Tenderness: Concordant in the Bilateral lumbar paraspinals - Paraspinal Spasms: Moderate - Facet Loading: Right-positive; Left-positive - Greater Trochanter: None tenderness Bilateral Strength: LEFT RIGHT Iliopsoas (L2) 4 5 Quadriceps (L3) 4 5 Anterior Tibialis (L4): 5 5 Exten Hallucis Longus (L5) 5 5 Gastrocnemius (S1): 5 5 Muscle Tone: - Normal and symmetric Sensation: - intact to light touch in the L2-S2 Bilateral lower limb dermatomes Reflexes: LEFT RIGHT Patellar (L4) Normal 2+ Normal 2+ Achilles (S1) Normal 2+ Normal 2+ Clonus Negative Negative Hip Range of Motion: - Normal with None pain at end range internal rotation - Normal with None pain at end range external rotation Sacroiliac Maneuvers: - SIJ tenderness: Positive Bilateral - Won's: positive for concordant pain referred over the superior sacral sulcus - Pelvic Distraction: positive for concordant pain referred over the superior sacral sulcus - Sacral Thrust: positive for concordant pain referred over the superior sacral sulcus - Hip Hyperextension: positive for concordant pain referred over the superior sacral sulcus Diagnoses: (M96.1) Post laminectomy syndrome (primary encounter diagnosis) (M54.16) Lumbar radiculopathy (M47.816) Lumbar spondylosis (M46.1) Sacroiliitis (HCC) (Z79.891) Encounter for long-term use of opiate analgesic Impression & Plan: 77 year old female with significant past medical history for low back decompressive surgeries x 3, scoliosis, who presents with complaint(s) of ongoing axial low back pain, lower limb radicular symptoms due to spinal stenosis. Has been established with pain management in [place], just moved to [place]. Stable on very low doses of medication. Good relief of buttock pain following SI Joint injections. Further relief of lower limb pain after Caudal injections. Continues to have axial low back pain, but not severe at this time. Presents today for medication refill. Refill without adjustments were provided after verifying the history noted above, performing a focused physical examination, and reviewing available compliance data including (where available) the PDMP/OARRS system, pill counts, toxicology screens. Akila De Los Santos would benefit from the following to decrease pain, improve function and/or work participation, and improve quality of life: Interventional Procedure(s): None The risks, benefits, alternative treatment options and prognosis of the procedure were discussed and all of the patient's questions/concerns were addressed to the patient's satisfaction. The patient expressed understanding and gave verbal consent to proceed. Current Anti-Coagulant Use: No Medications: continue Neurontin Refill tramadol - advised to pickup when scheduled, and we can adjust medication dosing if she isconsistently taking less frequently since she only takes #45/month Requested Prescriptions No prescriptions requested or ordered in this encounter ISA-7/PHQ-2, and ORT: Reviewed 01/05/2022 Functional Restorationism: Home Exercise Program: Prescribed on 12/19/2020 for the lumbar region(s) Range of motion exercises and Stretches To be performed at least 3 times per week under this Physician's supervision Depending on response to the above plan, consider: Repeat SI Joint injection; Switch to Lyrica; SI Joint RFA (prefers to avoid RFA at this time); MBB/RFA; Repeat Caudal Epidural Steroid Injection Follow-up: 2 month In person ISAURA UDS last visit was reviewed and was consistent. Patient reports they are happy with current treatment care plan. At this time will continued the patient's opioids today for 60 days. The patient continues to see benefit and improvement in their quality of life with adequate analgesia and ADLS's maintained. No adverse effects, no aberrant behaviors noted; OARRS reviewed and consistent. Risks of long-term medication use was reviewed and Patient advised the above medications may cause impairment of judgement while driving or operating machinery. Patient instructed on safe storage of medications We will re-evaluate opiate regimen in 60 days, office visit, to determine efficacy of treatment to ensure that we are using the lowest dose for maximum benefit. Bekah Cintron MD, MBA Pain [facility] There are no Patient Instructions on file for this visit. documented in this encounter [facility] 03-04-2022 Miscellaneous Notes As discussed at her last refill visit with me she was given a prescription 01/05 and 1 to be filled on 02/04 so not sure why she did not fill her January prescription. This is likely why she ran out. I will send in a bridge prescription to get her to her appointment. She should keep her appointment as future refill decisions should be made during those appointments. 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 It often occurs in patient who have had a history of trauma. Check out the website www.neurosymptoms.org subsection on Functional Tremor, which includes some exercises that can be done to try to suppress it. Decrease the primidone to one 50 mg pill at night. Consider using weighted silverware. documented in this encounter [facility] 02-16-2022 History of Present illness Narrative NEW PATIENT EVALUATION Subjective HPI Akila De Los Santos is a 76 year old right-handed female who presents for evaluation of tremor. Dr. Betty Bueno MD is the PCP and referring physician. Shaking is present in the hands for a couple years. Notices it more in her dominant right hand. Tremor is most prominent when trying to use her hands to do things. Dr. Bueno tried her on primidone 100 mg QHS, which seemed to help with some of the involuntary jerking of the fingers, but still can't hold a book or text without hitting the wrong letters. May have preceded her dreaming issues. Sometimes has an internal sense of shaking. Has spilled food / drink but is now cautious and doesn't. Handwriting varies based on how she is feeling, sometimes its fine other times can't control it just messy no change in size. Sense of smell has been poor since having COVID. No constipation. The past couple months has felt herself acting out dreams, falls asleep at weird times, will fall asleep unexpectedly and even in these quick sleeps will feel herself reaching for something as in her dream. No family history of tremor. No alcohol use to gauge improvement. No problems with manual dexterity. She has low back pain which makes it difficult to walk, uses a cane. Follows with Dr. Cintron for pain. Has rescue inhaler but only needs to use once a month. Asthma is pretty well controlled. Medications: Current Outpatient Medications Medication Sig Dispense Refill [START ON 03/10/2022] gabapentin (NEURONTIN) 600 mg tablet Take 1 tablet by mouth three times daily for 180 days. Do not start before March 10, 2022. 90 tablet 5 BREO ELLIPTA 200-25 mcg/dose inhaler INHALE 1 PUFF BY MOUTH ONCE DAILY DIRECTED 60 Each 11 potassium chloride 20 mEq TbER Take 2 tablets by mouth twice daily. 360 tablet 4 traMADol (ULTRAM) 50 mg tablet Take 1 tablet by mouth twice daily for 30 days. Use sparingly Do not start before February 04, 2022. 45 tablet 0 valACYclovir (VALTREX) 1 gram Take 1 tablet by mouth once daily 90 tablet 3 doxazosin (CARDURA) 4 mg tablet Take 1 tablet by mouth once daily. 90 tablet 3 indapamide (LOZOL) 2.5 mg tablet Take 1 tablet by mouth once daily. 90 tablet 1 primidone (MYSOLINE) 50 mg tablet Take 2 tablets by mouth daily at bedtime. 180 tablet 1 amLODIPine (NORVASC) 10 mg tablet Take 1 tablet by mouth once daily. 90 tablet 1 citalopram (CELEXA) 20 mg tablet Take 1 tablet by mouth once daily. 90 tablet 1 montelukast (SINGULAIR) 10 mg tablet Take 1 tablet by mouth daily at bedtime. 90 tablet 1 albuterol HFA (VENTOLIN HFA) 90 mcg/actuation inhaler Inhale 2 Puffs as instructed every 4 hours as needed for wheezing/shortness of breath. 18 g 4 rosuvastatin (CRESTOR) 10 mg tablet TAKE 1 TABLET BY MOUTH ONCE DAILY AT BEDTIME 90 tablet 3 blood sugar diagnostic (ACCU-CHEK KAYCEE PLUS TEST STRP) test strip Use as instructed to check blood sugar once daily as needed. 100 Each 11 Lancets lancets Use as instructed to check blood sugar once daily as needed 100 Each 11 Current Facility-Administered Medications Medication Dose Route Frequency Provider Last Rate Last Admin perflutren lipid microspheres 1.3 mL in NaCl (PF) 0.9% 10 mL injection (DEFINITY) INTRAVENOUS DIRECTED PRKentrell Armenta MD sodium chloride 0.9 % (flush) 10 mL (BD POSIFLUSH) 10 mL INTRAVENOUS DIRECTED PRN Rojelio Armenta MD ROS ROS: Her ROS was positive for that mentioned in the HPI. Otherwise a 10-point ROS was completed and was negative. ALLERGIES Allergen Reactions Aspirin Shortness of Breath Lisinopril Swelling Latex Rash Penicillins Hives, Rash Sulfamethoxazole Hives Past Medical History: PAST MEDICAL HISTORY Diagnosis Date Asthma Diabetes mellitus (HCC) DJD (degenerative joint disease) Osteoarthritis of multiple joints PAD (peripheral artery disease) ([facility]) TIA (transient ischemic attack) Family History: FAMILY HISTORY Problem Relation Age of Onset Blindness Maternal Grandmother No family history of tremor Social History: Social History Tobacco Use Smoking status: Former Types: Cigarettes Smokeless tobacco: Never Vaping Use Vaping Use: Never used Substance Use Topics Alcohol use: Never Drug use: Never No etoh Objective 02/16/22 1503 BP: 134/62 BP Site: Left Arm BP Position: Sitting BP Cuff Size: Regular Adult Pulse: 97 SpO2: 97% Weight: 71.4 kg (157 lb 6.4 oz) Height: 152.4 cm (5') Physical Examination General Appearance: Well appearing, alert, in no acute distress, well-hydrated, well nourished. Head: Normocephalic Neck: Supple Heart: RRR Peripheral Pulses: Normal Neurologic Examination Mental Status: She is alert. She is fully oriented. Attention is intact. Recent and remote memory is intact. Language shows normal comprehension and fluency. Praxis is normal. Affect is appropriate. Cranial Nerves: Pupils are equal and reactive to light. Extraocular movements show full and smooth pursuits. No nystagmus. Visual marino are full to confrontation. Facial sensation is intact. Facial activation is symmetric. Hearing is intact to conversation. There is no hypomimia. There is no hypophonia. There is no dysarthria. Tongue is midline. Palate elevates symmetrically. Shoulder shrug is normal. Motor: Muscle bulk is normal. Rapid alternating movements are normal. Muscle power is full. Irregular tremor, none at rest during encounter, during exam only irregular back and for rest tremor is present that resolves with crossed tapping. Postural tremor more prominent and also an fluctuating nature which comes and goes, back and forth, resolves with crossed tapping. Mild-mod kinetic tremor. Spirals large with interjections more than sustained tremor. No rigidity or bradykinesia. Mild vocal tremor. Sensory: Intact to fine touch, vibration reduced in toes. Reflex: 2+ and symmetric. Coordination: Finger to nose is smooth without ataxia. Gait/station: With cane antalgic from back DATA REVIEWED Actual films/image/tracing reviewed and summarized as follows: n/a Old records reviewed and summarized as follows: TSH 1.76 Assessment/Plan Assessment & Plan: Akila De Los Santos is a 76 year old right-handed female who presents for evaluation of tremor. Her examination demonstrates predominantly functional appearing tremor. We discussed her presentation. Explained functional tremor including treatment. In theory could have some underlying ET that is being masked by primidone, will reduce to 50 mg QHS to see if some more organic appearing tremor appears. Gave website with info on FT exercises. Could use weighted silverware. She should return to see me in 6 months. Karen Rivas MD [facility] Neu[facility] documented in this encounter [facility] 02-12-2022 History of Present illness Narrative AMBULATORY TELEPHONE VISIT Akila De Los Santos 1945 has consented to this telephone encounter. Persons Present: patient Chief Complaint/Reason: low back pain HPI: 76 year old female presents S/P Caudal CHAZ. Interval History: Since last encounter, Akila De Los Santos reports that the chronic problem(s) listed above are Better. Pain score 2/10. Patient underwent Caudal CHAZ on 02/01/[address] Cintron. Patient reports 70% relief from the injection. Symptom relief lasted to date. During this time the patient was able to tolerate and participate in their ADL's with less pain and difficulty. Patient denies any adverse side effects such as nausea, vomiting, hives, fever, injection site redness/induration, headache, or new radicular symptoms. She states that the injection took away her left hip pain. She still has low back pain but states that this is manageable. From Previous visit 12/11/21: Patient underwent BL SIJ CSI on 11/26/[address] Cintron. Patient reports 85% relief from the injection. Symptom relief lasted to date. During this time the patient was able to stand, walk, and participate in their ADL's with less pain and difficulty. She no longer has to use her cane to move around her house. She had to take far less of her pain medications as well. She is still having pain around her lower hip especially her left hip especially when she goes on walks. Review of Systems: Reviewed on today's date. Pertinent Positives: MSK - pain in the region being treated Neuro: No weakness or numbness in the region being treated Skin: Negative (No itching) Eyes: Negative (No blurred or double vision) Respiratory: Negative (No Cough, Zelwthemw-ek-munkio, Dyspnea on exertion, wheezing) Cardiovascular: Negative (No Chest Pain, Tightness, Pressure, Palpitations) Gastrointestinal: Negative (No Abdominal pain, Nausea, Vomiting, Constipation, Diarrhea) Genitourinary: Negative (No dysuria) Hematologic: Negative (No bleeding, bruising) Endocrine: Negative (No hot/cold intolerance) Psychiatric: Negative (No depression, anxiety or suicidal ideation) Data Reviewed: None new to review Current Medications, Past Medical History, Past Surgical History, Family History & Social History: Reviewed on today's date. Diagnoses: (M54.41) Acute right-sided low back pain with right-sided sciatica (primary encounter diagnosis) (M54.16) Lumbar radiculopathy (M96.1) Post laminectomy syndrome (M47.816) Lumbar spondylosis (M46.1) Sacroiliitis (HCC) Assessment and Plan: Continue tramadol prn Refill gabapentin Keep in person follow up appointment as scheduled on 03/12 Depending on response to the above plan, consider: Repeat SI Joint injection; Switch to Lyrica; SI Joint RFA (prefers to avoid RFA at this time); Total Time Spent: 11 minutes There are no Patient Instructions on file for this visit. Nicole French PA-C ([place]) [facility] documented in this encounter [facility] 01-13-2022 Miscellaneous Notes Please review and complete. Will be placed in your in box. Thank you. documented in this encounter [facility] 01-05-2022 Instructions Nicole French PA-C - 01/05/2022 11:29 AM EDT [facility] What is it? Epidural steroid injections are injections of a steroid and anesthetic into the epidural space, which is in the area in the spinal canal that surrounds the spinal cord and nerve roots. There are three types of epidural injections used for pain control: caudal injections (through the opening in the tailbone), interlaminar injections (through the middle of the back) and transforaminal injections (along the opening in the side of the spinal canal where the nerve roots exit from). Why are these injections done in a diagnostic imaging setting? All spinal injections are done on an outpatient basis and are performed under fluoroscopic (x-ray) guidance in order to ensure proper placement and to maximize safety and comfort. What is the purpose of the epidural steroid injection? The injection allows us to place a steriod next to an inflamed nerve to attempt to reduce the inflammation and/or swelling of the nerves and make them ore resistant to mechanical irritation and improve their blood flow. This in turn may reduce pain, tingling and numbness caused by the irritated nerve. How long does the injection take? Typically the epidural injection takes a few minutes to perform, from five to ten minutes, but expect to spend 45 minutes to an hour at our facility due to preparation time before the procedure and evaluation time after the procedure. What are the risks of epidural steroid injections? With all injections there is a risk of infection, bleeding, temporary increase in pain and injury to the structures along the course of the needle or injury to other nerve branches by the radiofrequency probe. By using sterile equipment and technique we minimize the risk of infection. The risk of bleeding is minimized by discontinuation of blood thinners (this typically requires approval from the prescribing doctor) and non-steroidal anti-inflammatory medications (except Celebrex). By using x-ray guidance (fluroscopy) we minimize risk of injury to structures along the course of the needle. Nerve irritation is minimized by use of local anesthetic (1% lidocaine) to provide temporarily relief that typically wears off after 1 to 2 hours and the steroid medication can take 3 to 5 days to take full effect. Patients should expect increased soreness for a couple days after the procedure. What should I do after the procedure? You should have someone drive you home. We advise patients to take it easy for the remaining day and resume regular activities as tolerated the next day. Who should NOT have this injection? If you have an active infection, poorly controlled hypertension, diabetes, congestive heart failure, or are unable to stop taking blood thinners, you may not be a candidate for these types of injections. documented in this encounter [facility] 01-05-2022 History of Present illness Narrative Review of Systems Constitutional: Negative for activity change, chills, fever and unexpected weight change. Gastrointestinal: Negative for bowel retention or incontinence Genitourinary: Negative for difficulty urinating. Negative for bladder retention or incontinence Musculoskeletal: Positive for arthralgias, back pain and gait problem. Negative for joint swelling, myalgias, neck pain and neck stiffness. Neurological: Negative for weakness, numbness and headaches. Psychiatric/Behavioral: Negative for dysphoric mood, sleep disturbance and suicidal ideas. The patient is not nervous/anxious. Images from the original note were not included. [facility] [place] [facility] Today's Date: 01/05/2022 Last Visit: 11/04/21 Name: Akila De Los Santos : 1945 Chief Complaint/Reason: LBP HPI: 76 year old female with significant past medical history for low back decompressive surgeries x 3, scoliosis, who presents with complaint(s) of ongoing axial low back pain, lower limb radicular symptoms due to spinal stenosis. Has been established with pain management in [place], just moved to [place]. Stable on very low doses of medication. Good relief of pain following SI Joint injections. Interval History: Since last encounter, Akila De Los Santos reports that the chronic problem(s) listed above are Unchanged. Low back pain hurts worse while walking. Most of her pain is axial in nature and radiates to her left lateral thigh to her knee when walking. Her low back pain increases when doing laundry. She is still getting good (85%) relief in her SI region bilaterally from her SIJ CSI she had 11/26/21. States the current medication regimen is allowing for the completion of daily activities and increasing the overall quality of life. Denies any new or worsening side effects. MEDICATION NAME tramadol STRENGTH 50 LAST FILL DATE 11/04/2021 DATE LAST DOSE TAKEN 01/04/22 QUANTITY FILLED 45 QUANTITY REMAINING 5 Urine Drug Screen Questionnaire URINE DRUG SCREEN Completed Date 01/05/2022 Recall: (From 06/2021) She reports periodic tremors in both hands. She reports that she had an Electrodiagnostic Study more than 15 years ago in the upper limbs, does not recall the results, is not interested in seeing Neurology. From Previous visit: Interval History: Since last encounter, Akila De Los Santos reports that the chronic problem(s) listed above are Unchanged. Patient has axial back pain and bilateral anterior thigh pain. Patient was given a home exercise program to be done 3 times a week under Dr. Cintron's supervision for her lumbar region including range of motion exercises and stretches that she has been doing since 12/19/2020. This has been helping her pain. She has been seeing physical for her neck and shoulder for the past 2 weeks and states this is also helping her pain, especially in her neck. Patient had an Mri of her left shoulder which showed a partial tear and some tendinosis. She injured her back over day. Dr Cintron sent her in a steroid pack and her PCP sent her a muscle relaxer. Since then her pain has been a lot better since that time. She has been taking tramadol 1-2 times a day for her pain which helps. She is having an increase of the same bilateral SIJ pain that she had in the past and feels it is time for a repeat injection. States the current medication regimen is allowing for the completion of daily activities and increasing the overall quality of life. Denies any new or worsening side effects. Current Status: [facility] 01/30/2021 04/30/2021 06/26/2021 09/11/2021 11/04/2021 01/05/2022 Questionnaire URINE DRUG SCREEN - URINE DRUG SCREEN - URINE DRUG SCREEN URINE DRUG SCREEN Completed Date 01/30/2021 - 06/26/2021 - 11/04/2021 01/05/2022 Questionnaire NA/OIC - - NA/OIC - - Completed Date 01/30/2021 - - 09/11/2021 - - Questionnaire - Opiod Risk Tool - - - - Completed Date - 04/30/2021 - - - - INTAKE PAIN ASSESSMENT 11/26/2021 01/05/2022 Are you having pain associated with your visit today? Yes, Provider notified Yes, Provider notified Pain Scales Verbal (Numeric Rating or Visual Analog Scale) Verbal (Numeric Rating or Visual Analog Scale) Pain Level 4 3 Pain Location Back-Lower Hip-Left Description Aching Aching Duration Amount of Time - - Duration Units - Weeks Frequency Continuous Intermittent Intervention/Comfort measure Medication;Reposition;Relaxation Relaxation;Medication Pain Assessment - - Current Pain Medications: Opioids: Tramadol 50mg 1-2 times a day NSAIDS: Anti-depressants: Anti-convulsants: Neurontin 600mg TID Muscle relaxants: Others: Tylenol Arthritis Pain Medications Taken to Date (for the chief complaint(s)): Membrane Stabilizers: Neurontin (Gabapentin) NSAIDS: none Opioids: Tramadol Muscle Relaxants: none Topicals: Voltaren Gel, Aspercreme - helps Other Prescription or OTC Pain Medications: none Non-Pain Meds of Note: None Pain Procedures: DATE PROCEDURE IMPROVEMENT 11/26/2021 Bilat SI Joint 85% 04/07/2021 Bilat SI Joint 90% x 6 months PAST MEDICAL HISTORY Diagnosis Date Asthma Diabetes mellitus (HCC) DJD (degenerative joint disease) Osteoarthritis of multiple joints PAD (peripheral artery disease) (HCC) TIA (transient ischemic attack) Current Outpatient Medications on File Prior to Visit Medication Sig valACYclovir (VALTREX) 1 gram Take 1 tablet by mouth once daily doxazosin (CARDURA) 4 mg tablet Take 1 tablet by mouth once daily. indapamide (LOZOL) 2.5 mg tablet Take 1 tablet by mouth once daily. primidone (MYSOLINE) 50 mg tablet Take 2 tablets by mouth daily at bedtime. tiZANidine (ZANAFLEX) 4 mg tablet Take 1 tablet by mouth every 8 hours as needed. gabapentin (NEURONTIN) 600 mg tablet Take 1 tablet by mouth three times daily for 180 days. amLODIPine (NORVASC) 10 mg tablet Take 1 tablet by mouth once daily. citalopram (CELEXA) 20 mg tablet Take 1 tablet by mouth once daily. montelukast (SINGULAIR) 10 mg tablet Take 1 tablet by mouth daily at bedtime. BREO ELLIPTA 200-25 mcg/dose inhaler Inhale 1 Inhalation as instructed once daily. albuterol HFA (VENTOLIN HFA) 90 mcg/actuation inhaler Inhale 2 Puffs as instructed every 4 hours as needed for wheezing/shortness of breath. rosuvastatin (CRESTOR) 10 mg tablet TAKE 1 TABLET BY MOUTH ONCE DAILY AT BEDTIME potassium chloride 20 mEq TbER Take 2 tablets by mouth twice daily. blood sugar diagnostic (ACCU-CHEK KAYCEE PLUS TEST STRP) test strip Use as instructed to check blood sugar once daily as needed. Lancets lancets Use as instructed to check blood sugar once daily as needed Current Facility-Administered Medications on File Prior to Visit Medication perflutren lipid microspheres 1.3 mL in NaCl (PF) 0.9% 10 mL injection (DEFINITY) sodium chloride 0.9 % (flush) 10 mL (BD POSIFLUSH) ALLERGIES Allergen Reactions Aspirin Shortness of Breath Lisinopril Swelling Latex Rash Penicillins Hives, Rash Sulfamethoxazole Hives Data Reviewed: Reviewed personally on today's date 01/05/2022 Compliance: PDMP website checked and validated. All prescriptions have been APPROPRIATELY filled. No suspicious activity was identified. 01/05/2022 by Nicole French PA-C Risk Assessment: ISA-7: No flowsheet data found.(0-4) minimal anxiety, (5-9) mild anxiety, (10-14) moderate anxiety, (15-21) severe anxiety PHQ-9: PHQ-9 04/08/2021 Score 0 (0-4) minimal depression, (5-9) mild depression, (10-14) moderate depression, (15-19) moderately severe depression, (20-27) severe depression Opioid Risk Tool: (0-3, low risk or no risk; 4-7, moderate risk, 8+, high risk) Current Medications, Past Medical History, Past Surgical History, Family History, Social History and Review of Systems: On today's date, 01/05/2022, noted above, I have confirmed and edited as necessary, the PFSH and ROS obtained by others. Relevant Imaging: MRI Lumbar spine 09/2019 ([facility] - reviewed 06/26/2021 ): Neural Foraminal Stenosis: None Central Canal Stenosis: Mtht-lf-sovkcmiy at L4-5 Facet-Arthropathy: L1-2, L3-4, L4-5 Disc Protrusion/Bulge: Disc height Loss L1-2, Vertebrae: Minor irregularities inferior end plate T10, Schmorl's note superior L2 end plate with type 1 Modic changes Hardware: Metallic screws left L2 - S1, right L5-S1, Disc implant at L3-4 Alignment: Mild anterolisthesis L4-5 Other: L5 laminectomy MRI LEFT SHOULDER: IMPRESSION: Mild to moderate diffuse supraspinatus tendinosis along with a 2 mm interstitial partial tear at the midportion of the mid to distal tendon. MRI Spine Report No resulted procedures found. Recent labs: Creatinine Date Value Ref Range Status 09/07/2021 0.94 0.58 - 0.96 mg/dL Final No results found for: GFR Glucose, Point of Care Date Value Ref Range Status 04/07/2021 105 (A) 74 - 99 mg/dL Final Comment: Location:[facility], [address] [place] [address], [facility] The Accu-Chek Inform II glucose meter has not been approved for testing on patients receiving intensive medical intervention or therapy and results from this point of care glucose test should not be used for patient management decisions in these cases. Inaccurate results may also occur from other interfering factors, such as N-acetylcysteine (blood concentrations of greater than 5mg/dL), galactose, extremes of hematocrit (<10 or >65), or high doses of ascorbic acid (vitamin C) greater than 3mg/dL. Consider alternate testing mechanisms (e.g. core lab, blood gas instrument) in the above situations. Physical Exam: 01/05/22 1107 Pulse: 67 Resp: 16 SpO2: 97% Constitutional: Well Appearing HEENT: Normal Cephalic, Atraumatic, Non-icteric sclera Eyes: Conjunctiva clear. No discharge from eyes Cardiovascular: Appears well perfused Lymphatic: No visible regional lymphadenopathy Skin: No visible rashes or ecchymosis Psychiatric: Full affect, Alert, Pleasant LUMBAR MUSCULOSKELETAL/NEURO EXAM Inspection: - Symmetric without atrophy Posture: - Normal intact spinal curves Gait: - Normal Spine Range of Motion: - Flexion: Limited with pain - Extension: Limited with pain -Rotation: Limited with pain Palpation: - Lumbar Paraspinal Tenderness: Concordant in the Bilateral lumbar paraspinals - Paraspinal Spasms: Moderate - Facet Loading: Right-positive; Left-positive - Greater Trochanter: None tenderness Bilateral Strength: LEFT RIGHT Iliopsoas (L2) 4 5 Quadriceps (L3) 4 5 Anterior Tibialis (L4): 5 5 Exten Hallucis Longus (L5) 5 5 Gastrocnemius (S1): 5 5 Muscle Tone: - Normal and symmetric Sensation: - intact to light touch in the L2-S2 Bilateral lower limb dermatomes Reflexes: LEFT RIGHT Patellar (L4) Normal 2+ Normal 2+ Achilles (S1) Normal 2+ Normal 2+ Clonus Negative Negative Hip Range of Motion: - Normal with None pain at end range internal rotation - Normal with None pain at end range external rotation Sacroiliac Maneuvers: - SIJ tenderness: Positive Bilateral - Won's: positive for concordant pain referred over the superior sacral sulcus - Pelvic Distraction: positive for concordant pain referred over the superior sacral sulcus - Sacral Thrust: positive for concordant pain referred over the superior sacral sulcus - Hip Hyperextension: positive for concordant pain referred over the superior sacral sulcus Diagnoses: (Z79.891) Encounter for long-term use of opiate analgesic (primary encounter diagnosis) (M54.41) Acute right-sided low back pain with right-sided sciatica (M96.1) Post laminectomy syndrome (M54.16) Lumbar radiculopathy (M47.816) Lumbar spondylosis (M46.1) Sacroiliitis (HCC) Impression & Plan: 76 year old female with significant past medical history for low back decompressive surgeries x 3, scoliosis, who presents with complaint(s) of ongoing axial low back pain, lower limb radicular symptoms due to spinal stenosis. Has been established with pain management in [place], just moved to [place]. Stable on very low doses of medication. Good relief of pain following SI Joint injections. Presents today for medication refill. Refill without adjustments were provided after verifying the history noted above, performing a focused physical examination, and reviewing available compliance data including (where available) the PDMP/OARRS system, pill counts, toxicology screens. Akila De Los Santos would benefit from the following to decrease pain, improve function and/or work participation, and improve quality of life: Interventional Procedure(s): Caudal CHAZ under fluoroscopic guidance The risks, benefits, alternative treatment options and prognosis of the procedure were discussed and all of the patient's questions/concerns were addressed to the patient's satisfaction. The patient expressed understanding and gave verbal consent to proceed. Current Anti-Coagulant Use: No Medications: continue Neurontin Refill tramadol Requested Prescriptions Signed Prescriptions Disp Refills traMADol (ULTRAM) 50 mg tablet 45 tablet 0 Sig: Take 1 tablet by mouth twice daily for 30 days. Use sparingly traMADol (ULTRAM) 50 mg tablet 45 tablet 0 Sig: Take 1 tablet by mouth twice daily for 30 days. Use sparingly Do not start before February 04, 2022. ISA-7/PHQ-2, and ORT: Reviewed 01/05/2022 Functional Restorationism: Home Exercise Program: Prescribed on 12/19/2020 for the lumbar region(s) Range of motion exercises and Stretches To be performed at least 3 times per week under this Physician's supervision Depending on response to the above plan, consider: Repeat SI Joint injection; Switch to Lyrica; SI Joint RFA (prefers to avoid RFA at this time); Caudal Epidural Steroid Injection Follow-up: 2 month In person follow up appointment before 03/06 UDS last visit was reviewed and was consistent. Patient reports they are happy with current treatment care plan. At this time will continued the patient's opioids today for 60 days. The patient continues to see benefit and improvement in their quality of life with adequate analgesia and ADLS's maintained. No adverse effects, no aberrant behaviors noted; OARRS reviewed and consistent. Risks of long-term medication use was reviewed and Patient advised the above medications may cause impairment of judgement while driving or operating machinery. Patient instructed on safe storage of medications We will re-evaluate opiate regimen in 60 days, office visit, to determine efficacy of treatment to ensure that we are using the lowest dose for maximum benefit. Nicole French PA-C ([place]) Pain Management [facility] Patient Instructions [facility] What is it? Epidural steroid injections are injections of a steroid and anesthetic into the epidural space, which is in the area in the spinal canal that surrounds the spinal cord and nerve roots. There are three types of epidural injections used for pain control: caudal injections (through the opening in the tailbone), interlaminar injections (through the middle of the back) and transforaminal injections (along the opening in the side of the spinal canal where the nerve roots exit from). Why are these injections done in a diagnostic imaging setting? All spinal injections are done on an outpatient basis and are performed under fluoroscopic (x-ray) guidance in order to ensure proper placement and to maximize safety and comfort. What is the purpose of the epidural steroid injection? The injection allows us to place a steriod next to an inflamed nerve to attempt to reduce the inflammation and/or swelling of the nerves and make them ore resistant to mechanical irritation and improve their blood flow. This in turn may reduce pain, tingling and numbness caused by the irritated nerve. How long does the injection take? Typically the epidural injection takes a few minutes to perform, from five to ten minutes, but expect to spend 45 minutes to an hour at our facility due to preparation time before the procedure and evaluation time after the procedure. What are the risks of epidural steroid injections? With all injections there is a risk of infection, bleeding, temporary increase in pain and injury to the structures along the course of the needle or injury to other nerve branches by the radiofrequency probe. By using sterile equipment and technique we minimize the risk of infection. The risk of bleeding is minimized by discontinuation of blood thinners (this typically requires approval from the prescribing doctor) and non-steroidal anti-inflammatory medications (except Celebrex). By using x-ray guidance (fluroscopy) we minimize risk of injury to structures along the course of the needle. Nerve irritation is minimized by use of local anesthetic (1% lidocaine) to provide temporarily relief that typically wears off after 1 to 2 hours and the steroid medication can take 3 to 5 days to take full effect. Patients should expect increased soreness for a couple days after the procedure. What should I do after the procedure? You should have someone drive you home. We advise patients to take it easy for the remaining day and resume regular activities as tolerated the next day. Who should NOT have this injection? If you have an active infection, poorly controlled hypertension, diabetes, congestive heart failure, or are unable to stop taking blood thinners, you may not be a candidate for these types of injections. documented in this encounter [facility] 12-11-2021 Instructions Nicole French PA-C - 12/11/2021 9:39 AM EDT Activity as tolerated Use Ice and/or heat as tolerated as needed documented in this encounter [facility] 12-11-2021 History of Present illness Narrative AMBULATORY TELEPHONE VISIT Akila Marshff 1945 has consented to this telephone encounter. Persons Present: patient Chief Complaint/Reason: low back pain HPI: 76 year old female presents S/P SIJ CSI. Interval History: Since last encounter, Akila Ledy reports that the chronic problem(s) listed above are Better. Pain score 0/10. Patient underwent BL SIJ CSI on 11/26/[address] Cintron. Patient reports 85% relief from the injection. Symptom relief lasted to date. During this time the patient was able to stand, walk, and participate in their ADL's with less pain and difficulty. She no longer has to use her cane to move around her house. She had to take far less of her pain medications as well. She is still having pain around her lower hip especially her left hip especially when she goes on walks. Patient denies any adverse side effects such as nausea, vomiting, hives, fever, injection site redness/induration, headache, or new radicular symptoms From Previous visit 11/04/21: Since last encounter, Akila De Los Santos reports that the chronic problem(s) listed above are Unchanged. Patient has axial back pain and bilateral anterior thigh pain. Patient was given a home exercise program to be done 3 times a week under Dr. Cintron's supervision for her lumbar region including range of motion exercises and stretches that she has been doing since 12/19/2020. This has been helping her pain. She has been seeing physical for her neck and shoulder for the past 2 weeks and states this is also helping her pain, especially in her neck. Patient had an Mri of her left shoulder which showed a partial tear and some tendinosis. She injured her back over memorial day. Dr Cintron sent her in a steroid pack and her PCP sent her a muscle relaxer. Since then her pain has been a lot better since that time. She has been taking tramadol 1-2 times a day for her pain which helps. She is having an increase of the same bilateral SIJ pain that she had in the past and feels it is time for a repeat injection. Review of Systems: Reviewed on today's date. Pertinent Positives: MSK - pain in the region being treated Neuro: No weakness or numbness in the region being treated Skin: Negative (No itching) Eyes: Negative (No blurred or double vision) Respiratory: Negative (No Cough, Xpsimxzxo-pc-eqajss, Dyspnea on exertion, wheezing) Cardiovascular: Negative (No Chest Pain, Tightness, Pressure, Palpitations) Gastrointestinal: Negative (No Abdominal pain, Nausea, Vomiting, Constipation, Diarrhea) Genitourinary: Negative (No dysuria) Hematologic: Negative (No bleeding, bruising) Endocrine: Negative (No hot/cold intolerance) Psychiatric: Negative (No depression, anxiety or suicidal ideation) Data Reviewed: None new to review Current Medications, Past Medical History, Past Surgical History, Family History & Social History: Reviewed on today's date. Diagnoses: No diagnosis found. Assessment and Plan: No refill needed Continue zanaflex prn Continue tramadol prn Continue gabapentin Keep in person follow up appointment as scheduled on 01/05 Total Time Spent: 11 minutes There are no Patient Instructions on file for this visit. Nicole French PA-C ([place]) Pain Management [facility] documented in this encounter [facility] 11-26-2021 Instructions Yaa Choe LPN - 11/26/2021 11:47 AM EDT PROCEDURE DISCHARGE INSTRUCTIONS 11/26/2021 Akila De Los Santos 1945 Physician: Bekah Cintron MD Procedure: Shoulder/Knee/Sacroiliac/Hip joint injection Post Procedure Instructions: If sedation not given, no driving for 3 hours after the procedure., Rest the day of the procedure., You may resume normal activities the day after the procedure, as tolerated., Pain should gradually subside over the next 2-3 weeks., Avoid movements that may aggravate pain., Apply cold compresses to injection site if needed., If medically acceptable, take over the counter anti-inflammatories such as ibuprofen or Aleve if needed for post procedure discomfort. and No hot baths, hot tubs or hot compresses for 24 hours. If you have any of the following signs or symptoms, please call our office at Fever and/or chills Swelling and/or drainage from injection site New pain that is different than your normal pain (other than soreness at the site of the procedure) Stiff neck Shortness of breath Severe increase in pain Motor dysfunctions, such as difficulty walking, bowel or bladder dysfunction and/or incontinence Headache that is severe, light sensitive or develops when changing positions (positional headache) Nausea and/or vomiting accompanied by headache that started 24-48 hours after the procedure If you have any emergent concerns, please call 911 or go to your local emergency room. Please also contact our office to let us know you will be seeking emergency care and why. documented in this encounter [facility] 11-26-2021 Nurse Note Order has been placed in the patient's chart with the following parameters for discharge from the physician: Patient is alert and oriented Vitals: Diastolic/Systolic +/- 20mmHg Respirations: 12-18 Pulse: 60-100 SpO2 is greater than or equal to 90% Patient has no nausea or vomiting Patient has no dizziness Pain level is +/- 2 from initial evaluation Dressing, dry and intact with no evidence of bleeding Criteria has been met, patient is okay to be discharged per the physician. Physician has gone in and evaluated the patient. Dressing dry and intact. No drainage noted. The patient denies nausea, numbness, tingling, weakness, shortness of breath, dizziness, or headache. Pain level 0/10. Vital signs within normal limits. Patient denied needing walked out by clinical staff and denied needing a wheelchair. Patient given discharge instructions and sent to transportation via ambulatory method. Patient left in good condition. Procedure to be performed: Bilateral Sacroiliac Joint Injection Patient was wheeled on stretcher from pre op bay to procedure room and assisted onto the procedure tablePatient s procedure was performed in an [facility] Procedure room. Pause completed at each level by provider to verify correct level and laterality placement Pressure was applied to patient s injection site(s) and bleeding was minimal. Patient had no complaint of shortness of breath, dizziness, headache, numbness, tingling, weakness or complications from procedure. Patient was assisted from the procedure table onto the stretcher and wheeled into a post op bay. Patient was advised a clinician will be to obtain another set of vitals. Time Out: 1135 Confirmed patient name, date of , procedure site, laterality, and allergies Procedure Start: 1138 Procedure End: 1143 [employer] Lead's Name: Iona Sunshine Are you on a blood thinner: n If yes, is a hold required: n Last dose of blood thinner: n INR Result today: n Do you require a Lovenox bridge:n Are you a diabetic:y Are you/or could you be : n Are you taking Xanax for the procedure: n Are you currently on a steroid? n Are you currently on an antibiotic: n Have you had a COVID-19 vaccine in the last 14 days Or are you scheduled to receive one? n documented in this encounter [facility] 11-26-2021 History of Present illness Narrative Review of Systems Constitutional: Negative for activity change, chills, fever and unexpected weight change. Genitourinary: Negative for difficulty urinating. Musculoskeletal: Positive for arthralgias, back pain, gait problem, joint swelling, myalgias, neck pain and neck stiffness. Neurological: Positive for weakness. Negative for numbness and headaches. Psychiatric/Behavioral: Negative for dysphoric mood, sleep disturbance and suicidal ideas. The patient is not nervous/anxious. [facility] Patient name: Akila De Los Santos Date of : 1945 Today's Date: 11/26/2021 Physician performing procedure: Bekah Cintron M.D., M.B.A. Procedure: Joints and Bursae Sacroiliac (SI) Joint Arthrogram with Steroid Infiltration under fluoroscopic guidance Levels Treated: Bilateral Approach: As per procedure note Injectate: A total of 4cc, consisting of 2cc of Depo-medrol (40mg/cc) the remainder consisting of 2% Lidocaine Each site received half this injectate. Improvement after today's procedure: as per nursing report Diagnosis: (M46.1) Sacroiliitis (HCC) (primary encounter diagnosis) Comments: None HPI: Akila De Los Santos is an 76 year old FEMALE who presents today, in pain, for the procedure noted above. ? Data Reviewed: ? Current Medications, Past Medical History, Past Surgical History, Family History, Social History and Review of Systems: On Today's date, noted in the attribution, I have confirmed and edited as necessary, the PFSH and ROS obtained by others. ? Nursing note and vitals reviewed. Additional imaging reviewed as appropriate ? Review of Systems: ? Pertinent Positives: MSK: pain in the region being treated ? Neuro: no weakness or numbness in the region being treated ? Skin: Negative (No itching) ? Eyes: Negative (No blurred or double vision) ? Respiratory: Negative (No Cough, Mwctowbej-tq-pcrlxc, Dyspnea on exertion, wheezing) ? Cardiovascular: Negative (No Chest Pain, Tightness, Pressure, Palpitations) ? Gastrointestinal: Negative (No Abdominal pain, Nausea, Vomiting, Constipation, Diarrhea) ? Genitourinary: Negative (No dysuria) ? Hematologic: Negative (No bleeding, bruising) ? OB: is Denied or Not Applicable ? Endocrine: Negative (No hot/cold intolerance) ? Psychiatric: Negative (No depression, anxiety or suicidal ideation) PAST MEDICAL HISTORY Diagnosis Date Asthma Diabetes mellitus (HCC) DJD (degenerative joint disease) Osteoarthritis of multiple joints PAD (peripheral artery disease) (HCC) TIA (transient ischemic attack) ? PAST SURGICAL HISTORY Procedure Laterality Date CATARACT EXTRACTION HX Left 11/2016 CATARACT EXTRACTION HX Right 11/2018 TOTAL ABDOM HYSTERECTOMY ? FAMILY HISTORY Problem Relation Age of Onset Blindness Maternal Grandmother ? Social History Tobacco Use Smoking status: Never Smoker Smokeless tobacco: Never Used Vaping Use Vaping Use: Never used Substance Use Topics Alcohol use: Never Drug use: Never ? Current Outpatient Medications on File Prior to Visit Medication Sig doxazosin (CARDURA) 4 mg tablet Take 1 tablet by mouth once daily. traMADol (ULTRAM) 50 mg tablet Take 1 tablet by mouth twice daily for 30 days. Use sparingly [START ON 12/04/2021] traMADol (ULTRAM) 50 mg tablet Take 1 tablet by mouth twice daily for 30 days. Use sparingly Do not start before December 04, 2021. indapamide (LOZOL) 2.5 mg tablet Take 1 tablet by mouth once daily. primidone (MYSOLINE) 50 mg tablet Take 2 tablets by mouth daily at bedtime. tiZANidine (ZANAFLEX) 4 mg tablet Take 1 tablet by mouth every 8 hours as needed. gabapentin (NEURONTIN) 600 mg tablet Take 1 tablet by mouth three times daily for 180 days. amLODIPine (NORVASC) 10 mg tablet Take 1 tablet by mouth once daily. citalopram (CELEXA) 20 mg tablet Take 1 tablet by mouth once daily. montelukast (SINGULAIR) 10 mg tablet Take 1 tablet by mouth daily at bedtime. BREO ELLIPTA 200-25 mcg/dose inhaler Inhale 1 Inhalation as instructed once daily. albuterol HFA (VENTOLIN HFA) 90 mcg/actuation inhaler Inhale 2 Puffs as instructed every 4 hours as needed for wheezing/shortness of breath. rosuvastatin (CRESTOR) 10 mg tablet TAKE 1 TABLET BY MOUTH ONCE DAILY AT BEDTIME potassium chloride 20 mEq TbER Take 2 tablets by mouth twice daily. valACYclovir (VALTREX) 1 gram Take 1 tablet by mouth once daily. (Patient not taking: Reported on 11/04/2021 ) blood sugar diagnostic (ACCU-CHEK KAYCEE PLUS TEST STRP) test strip Use as instructed to check blood sugar once daily as needed. Lancets lancets Use as instructed to check blood sugar once daily as needed Current Facility-Administered Medications on File Prior to Visit Medication perflutren lipid microspheres 1.3 mL in NaCl (PF) 0.9% 10 mL injection (DEFINITY) sodium chloride 0.9 % (flush) 10 mL (BD POSIFLUSH) ? ALLERGIES Allergen Reactions Aspirin Shortness of Breath Lisinopril Swelling Latex Rash Penicillins Hives, Rash Sulfamethoxazole Hives ? ? Objective Exam: ? Vitals: As per nursing documentation ? Constitutional: Normal Appearance, Oriented to Time, Place and Person ? Head: No lacerations, no external signs of trauma ? Eyes: Conjunctiva clear. No discharge from the eyes ? Cardiovascular: Appears well-perfused ? Pulmonary: Non-labored respirations ? Abdominal: Non-distended ? Skin: No visible rashes or ecchymosis ? Psychiatric: Mood appropriate for given condition ? Neurological: Gross movements are limited by pain, but otherwise unremarkable Assessment and Plan: As noted above UNIVERSAL PROTOCOL / SAFETY CHECKLIST * Procedure to be Performed: as noted above Sign In: A Moment of CARE was completed. Personnel directly involved with the procedure wore the appropriate PPE (Personal Protective Equipment). Patient/Surrogate Stated/Verified: PATIENT VERIFIED(optional for EMERGENT procedures): Patient name, Date of , Relevant allergies and The intended procedure Time Out Communication: Intended patient and procedure match the source documents. Consent documented and matches the intended procedure. ? Obtained in writing prior to procedure ? I had a nice discussion with the patient today about their current pain and the pathology that could be causing it ? We discussed different treatment options, including risks, benefits and alternatives. We agreed to proceed as previously discussed, or the plan was modified in accordance with the comments noted above ? Unless stated otherwise in the procedure note, the risks include but are not limited to infection, allergic reaction, increased pain, lack of therapeutic benefit, steroid reaction, nerve damage, paralysis, stroke, epidural hematoma, syncope, headache, respiratory or cardiac arrest, pneumothorax, and scar formation ? Once the plan was agreed upon, the patient gave written consent to proceed and was transported into the procedure room Sign Out: SIGN OUT (optional for EMERGENT procedures): No specimen collected. Post-procedure follow-up management communicated and Plan of Care Visit completed when applicable. ? Time Out was led by the physician in the procedure room, with the patient and all staff present and participating ? The following information was verified during the Time Out process: Patient name, patient date of , procedure site (marked), laterality, anticoagulants and allergies Procedure: The patient was prepped and draped in a sterile fashion in the prone position after informed consent was signed and all patient questions were answered including the risks, benefits, alternative treatment options, and prognosis. The risks are as mentioned above, except for pneumothorax. The fluoroscopic C-arm was positioned for optimal visualization of the sacroiliac (SI) joint. The inferior portion of the above SI joint was localized under fluoroscopic visualization and 3cc of 1% Lidocaine without Epinephrine was utilized for soft tissue local anesthesia. A 22 gauge, 3.5 inch spinal needle was inserted into the fluoroscopically hyperlucent region within the SI joint. A 0.5 cc. volume of Omnipaque 300 was injected into the joint and an articular flow pattern was obtained. Spot films were obtained. The solution noted above was then injected into the SI joint. Please see the nursing note for exact times (time out, procedure start, procedure end). After careful removal of the needle, there was minimal bleeding. The injection site was covered with appropriate sterile dressing. The patient was noted to have tolerated the procedure well and was discharged after an appropriate period of post-procedure observation. The patient was instructed to contact us if there were any complications. The patient was advised to follow-up with the requesting physician within one to two weeks or as per their requested follow-up plan. Post procedure visit summary with written instructions was offered to the patient. Bekah GARRETTA [facility] documented in this encounter [facility] 11-24-2021 Miscellaneous Notes Refilled. Pt notified. NHM documented in this encounter [facility] 11-18-2021 History of Present illness Narrative Episode Visit Count: 3 Therapist That Will Oversee The Plan Of Care: Milagro Start of Care Date: 10/31/21 Plan of Care Certification Date: 10/31/21 Next Certification Due Date: 01/29/22 Patient Identified by Name and Date of : Yes REHABILITATION AND SPORTS THERAPY PHYSICAL THERAPY TREATMENT NOTE ASSESSMENT: Akila De Los Santos tolerated the session with expected muscle soreness. She demonstrated difficulty with HABD due to fatigue. The patient will continue to benefit from ongoing skilled physical therapy to progress toward set goals. PLAN FOR NEXT VISIT: review HEP, progress with shoulder and neck ROM and strength, manual therapy as needed SUBJECTIVE: Patient reports that she is having some pain in her neck today but her shoulder is doing well. She is doing her HEP 2-3x a day. Pain: Pain Pain Level: 3 Pain Location: Neck OBJECTIVE MEASURES WITH LEVEL OF FUNCTION: No objective measures taken this session. TREATMENT: Therapeutic Exercise: 1: UBE 4' (see below) 2: *cervical retractions 2x10 3: *no money pink 2x10 4: *rows pink 3x10 5: pulldowns pink 3x10 6: *HABD org 2x10 7: *shoulder rolls x 20 8: pulleys x10 Skilled Intervention: Patient was educated in proper exercise technique and purpose for exercises. Skilled judgment was provided in selection of appropriate interventions. Correct performance of therapeutic exercises was facilitated with verbal and tactile cuing. Manual Therapy: 1: stm to cervical paraspinals, levator scapulae, and upper trapezius 2: passive cervical rot and lateral flexion stretching Skilled Intervention: Manual skills to improve joint mobility, ROM, and decrease pain. Utilized anatomy knowledge of the therapist, and assessment of patient's response to intervention. The UBE was utilized as a warm up prior to moderate level activity. This time was used to discuss the patient's response to the last session, the compliance and response to the HEP as well as their current symptoms and functional limitations. Billing Therapeutic Exercise Treatment Minutes: 35 Manual TherapyTreatment Minutes: 10 Total Treatment Time Minutes (timed/untimed): 45 ROBERT JEONG PTA documented in this encounter [facility] 11-11-2021 History of Present illness Narrative Episode Visit Count: 2 Therapist That Will Oversee The Plan Of Care: Milagro Start of Care Date: 10/31/21 Plan of Care Certification Date: 10/31/21 Next Certification Due Date: 01/29/22 Patient Identified by Name and Date of : Yes REHABILITATION AND SPORTS THERAPY PHYSICAL THERAPY TREATMENT NOTE ASSESSMENT: Akila De Los Santos tolerated the session with decreased symptoms. She demonstrated improvements in functional AROM and strength. The patient will continue to benefit from ongoing skilled physical therapy to progress toward set goals. Demos good progress with symptom management. Increased tone and TTP to L teres minor likely influencing shoulder AROM and concordant pain. PLAN FOR NEXT VISIT: review HEP, progress with shoulder and neck ROM and strength, manual therapy as needed SUBJECTIVE: Pt reports good progress overall. Endorses increased shoulder pain with the rainy days, but is improving well with home exercises. Pain: Pain Pain Level: 0 Pain Location: Shoulder - Left OBJECTIVE MEASURES WITH LEVEL OF FUNCTION: Spine Observations R Cervical Spine Palpation Tenderness: Upper trapezius;Paraspinals L Cervical Spine Palpation Tenderness: Upper trapezius;Levator scapulae;Paraspinals UE AROM R Shoulder Flex: 160 Degrees L Shoulder Flex: 160 Degrees TREATMENT: Therapeutic Exercise: 1: *shoulder rolls 2x 20 2: *no money orange 3x10 3: *cervical retractions 2x10 4: UBE 3x3 5: shoulder rows pink band 3x10 6: shoulder extension pink band 3x10 7: seated thoracic rotation AROM 2x20 Skilled Intervention: Patient was educated in proper exercise technique and purpose for exercises. Skilled judgment was provided in selection of appropriate interventions. Provided written instruction for home exercise program to facilitate proper performance and compliance. Billing Therapeutic Exercise Treatment Minutes: 35 Manual TherapyTreatment Minutes: 10 Total Treatment Time Minutes (timed/untimed): 45 Alistair Dominguez PT documented in this encounter [facility] 11-04-2021 Miscellaneous Notes 1.Are you diabetic Yes. Please list the current medications being prescribed no medication. 2. Are you on any blood thinners? No 3. Are you taking any aspirin? No 4. Have you had any recent imaging done on your body part that's being injected? No 5. Do you have any allergies to latex? Yes 6. Do you have any allergies to seafood? No 7. Do you have any allergies to shellfish? No 8. Do you have any allergies to x-ray dye? No 9. Are you taking Xanax for the procedure? No 10. Have you done physical therapy in the last year? Yes If yes, When and Where? Last week, [facility], for neck and shoulder (Medical Records Release needs to be signed.) 11. Were the pre-procedure instructions explained to the patient? Yes 12. Do you have a pacemaker? No 13. Do you have an internal stimulator of any kind? No If yes, please bring the remote with you to your procedure visit. 14. Have you received the COVID-19 Vaccine? Yes. If yes, date(s) received: 07/29/2021 (Patient should not receive a procedure including steroids 14 days prior to their first dose of the COVID vaccine. They should not receive any procedure containing steroids in the time frame between their 1st and 2nd doses of the COVID vaccine. They should not receive a procedure containing steroids 14 days after their 2nd dose of the COVID vaccine.) Eloise Kidd documented in this encounter [facility] 11-04-2021 History of Present illness Narrative Images from the original note were not included. [facility] Today's Date: 11/04/2021 Last Visit: 09/11/2021 Name: Akila De Los Santos : 1945 Chief Complaint/Reason:LBP Interval History: Since last encounter, Akila Ledy reports that the chronic problem(s) listed above are Unchanged. Patient has axial back pain and bilateral anterior thigh pain. Patient was given a home exercise program to be done 3 times a week under Dr. Cintron's supervision for her lumbar region including range of motion exercises and stretches that she has been doing since 12/19/2020. This has been helping her pain. She has been seeing physical for her neck and shoulder for the past 2 weeks and states this is also helping her pain, especially in her neck. Patient had an Mri of her left shoulder which showed a partial tear and some tendinosis. She injured her back over memorial day. Dr Cintron sent her in a steroid pack and her PCP sent her a muscle relaxer. Since then her pain has been a lot better since that time. She has been taking tramadol 1-2 times a day for her pain which helps. She is having an increase of the same bilateral SIJ pain that she had in the past and feels it is time for a repeat injection. States the current medication regimen is allowing for the completion of daily activities and increasing the overall quality of life. Denies any new or worsening side effects. MEDICATION NAME tramadol STRENGTH 50 LAST FILL DATE 09/02/2021 DATE LAST DOSE TAKEN 11/03/21 QUANTITY FILLED 45 QUANTITY REMAINING 1 Urine Drug Screen Questionnaire URINE DRUG SCREEN Completed Date 11/04/2021 Interval History from previous OV: Akila De Los Santos reports that her low back pain is still improved since last encounter. She had bilateral SI joint injections on 04/07/2021, still reports 90% relief of pain on the right, left side occasionally hurting. She is having more frequent pain radiating into the buttocks and posterior thighs, worse when walking, using a straight cane for support. Continues taking and tolerating Neurontin 600mg TID and Tramadol 50mg PRN basis. Still taking Tramadol significantly less since the injection. Less right foot dysesthesias in the base of the foot. She saw Ortho for her left shoulder, MRI Pending. Recall: (From 06/2021) She reports periodic tremors in both hands. She reports that she had an Electrodiagnostic Study more than 15 years ago in the upper limbs, does not recall the results, is not interested in seeing Neurology. Current Status: INTAKE PAIN ASSESSMENT 10/31/2021 11/04/2021 Are you having pain associated with your visit today? 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 Anti-convulsants: Neurontin 600mg TID o Muscle relaxants: o Others: Tylenol Arthritis Analgesia: partially adequate Current Anti-Coagulant Use: No Pain Medications Taken to Date (for the chief complaint(s)): Membrane Stabilizers: Neurontin (Gabapentin) NSAIDS: none Opioids: Tramadol Muscle Relaxants: none Topicals: Voltaren Gel, Aspercreme - helps Other Prescription or OTC Pain Medications: none Non-Pain Meds of Note: None PAST MEDICAL HISTORY Diagnosis Date Asthma Diabetes mellitus (HCC) DJD (degenerative joint disease) Osteoarthritis of multiple joints PAD (peripheral artery disease) (HCC) TIA (transient ischemic attack) Current Outpatient Medications on File Prior to Visit Medication Sig indapamide (LOZOL) 2.5 mg tablet Take 1 tablet by mouth once daily. primidone (MYSOLINE) 50 mg tablet Take 2 tablets by mouth daily at bedtime. tiZANidine (ZANAFLEX) 4 mg tablet Take 1 tablet by mouth every 8 hours as needed. gabapentin (NEURONTIN) 600 mg tablet Take 1 tablet by mouth three times daily for 180 days. traMADol (ULTRAM) 50 mg tablet Take 1 tablet by mouth twice daily for 30 days. Use sparingly Do not start before November 01, 2021. amLODIPine (NORVASC) 10 mg tablet Take 1 tablet by mouth once daily. citalopram (CELEXA) 20 mg tablet Take 1 tablet by mouth once daily. montelukast (SINGULAIR) 10 mg tablet Take 1 tablet by mouth daily at bedtime. BREO ELLIPTA 200-25 mcg/dose inhaler Inhale 1 Inhalation as instructed once daily. albuterol HFA (VENTOLIN HFA) 90 mcg/actuation inhaler Inhale 2 Puffs as instructed every 4 hours as needed for wheezing/shortness of breath. rosuvastatin (CRESTOR) 10 mg tablet TAKE 1 TABLET BY MOUTH ONCE DAILY AT BEDTIME doxazosin (CARDURA) 4 mg tablet Take 1 tablet by mouth once daily. potassium chloride 20 mEq TbER Take 2 tablets by mouth twice daily. valACYclovir (VALTREX) 1 gram Take 1 tablet by mouth once daily. blood sugar diagnostic (ACCU-CHEK KAYCEE PLUS TEST STRP) test strip Use as instructed to check blood sugar once daily as needed. Lancets lancets Use as instructed to check blood sugar once daily as needed Current Facility-Administered Medications on File Prior to Visit Medication perflutren lipid microspheres 1.3 mL in NaCl (PF) 0.9% 10 mL injection (DEFINITY) sodium chloride 0.9 % (flush) 10 mL (BD POSIFLUSH) ALLERGIES Allergen Reactions Aspirin Shortness of Breath Lisinopril Swelling Latex Rash Penicillins Hives, Rash Sulfamethoxazole Hives Data Reviewed: Reviewed personally on today's date 11/04/2021 Compliance: PDMP website checked and validated. All prescriptions have been APPROPRIATELY filled. No suspicious activity was identified. 11/04/2021 by Nicole French PA-C Risk Assessment: ISA-7: No flowsheet data found.(0-4) minimal anxiety, (5-9) mild anxiety, (10-14) moderate anxiety, (15-21) severe anxiety PHQ-9: PHQ-9 04/08/2021 Score 0 (0-4) minimal depression, (5-9) mild depression, (10-14) moderate depression, (15-19) moderately severe depression, (20-27) severe depression Opioid Risk Tool: (0-3, low risk or no risk; 4-7, moderate risk, 8+, high risk) Current Medications, Past Medical History, Past Surgical History, Family History, Social History and Review of Systems: On today's date, 11/04/2021, noted above, I have confirmed and edited as necessary, the PFSH and ROS obtained by others. Relevant Imaging: MRI Lumbar spine 09/2019 ([facility] - reviewed 06/26/2021 ): Neural Foraminal Stenosis: None Central Canal Stenosis: [id number] at L4-5 Facet-Arthropathy: L1-2, L3-4, L4-5 Disc Protrusion/Bulge: Disc height Loss L1-2, Vertebrae: Minor irregularities inferior end plate T10, Schmorl's note superior L2 end plate with type 1 Modic changes Hardware: Metallic screws left L2 - S1, right L5-S1, Disc implant at L3-4 Alignment: Mild anterolisthesis L4-5 Other: L5 laminectomy MRI LEFT SHOULDER: IMPRESSION: Mild to moderate diffuse supraspinatus tendinosis along with a 2 mm interstitial partial tear at the midportion of the mid to distal tendon. Recent labs: Creatinine Date Value Ref Range Status 09/07/2021 0.94 0.58 - 0.96 mg/dL Final No results found for: GFR Glucose, Point of Care Date Value Ref Range Status 04/07/2021 105 (A) 74 - 99 mg/dL Final Comment: Location:[facility], [address] [place] [address] [address], [place], [address] The Accu-Chek Inform II glucose meter has not been approved for testing on patients receiving intensive medical intervention or therapy and results from this point of care glucose test should not be used for patient management decisions in these cases. Inaccurate results may also occur from other interfering factors, such as N-acetylcysteine (blood concentrations of greater than 5mg/dL), galactose, extremes of hematocrit (<10 or >65), or high doses of ascorbic acid (vitamin C) greater than 3mg/dL. Consider alternate testing mechanisms (e.g. core lab, blood gas instrument) in the above situations. Pain Procedures: DATE PROCEDURE IMPROVEMENT 04/07/2021 Bilat SI Joint 90% x 6 months Physical Exam: 11/04/21 1530 Pulse: 67 Resp: 16 SpO2: 97% Constitutional: overweight HEENT: Normal Cephalic, Atraumatic, Non-icteric sclera Eyes: Conjunctiva clear. No discharge from eyes Cardiovascular: Appears well perfused Lymphatic: No visible regional lymphadenopathy Skin: No visible rashes or ecchymosis Psychiatric: Full affect, Alert, Pleasant LUMBAR MUSCULOSKELETAL/NEURO EXAM Inspection: - Symmetric without atrophy Posture: - Normal intact spinal curves Gait: - Normal Spine Range of Motion: - Flexion: Limited with pain - Extension: Limited with pain -Rotation: Limited with pain Palpation: - Lumbar Paraspinal Tenderness: Concordant in the Bilateral lumbar paraspinals - Paraspinal Spasms: Moderate - Facet Loading: Right-positive; Left-positive - Greater Trochanter: None tenderness Bilateral Strength: LEFT RIGHT Iliopsoas (L2) 5 5 Quadriceps (L3) 5 5 Anterior Tibialis (L4): 5 5 Exten Hallucis Longus (L5) 5 5 Gastrocnemius (S1): 5 5 Muscle Tone: - Normal and symmetric Sensation: - intact to light touch in the L2-S2 Bilateral lower limb dermatomes Reflexes: LEFT RIGHT Patellar (L4) Normal 2+ Normal 2+ Achilles (S1) Normal 2+ Normal 2+ Clonus Negative Negative Hip Range of Motion: - Normal with None pain at end range internal rotation - Normal with None pain at end range external rotation Sacroiliac Maneuvers: - SIJ tenderness: Positive Bilateral - Won's: positive for concordant pain referred over the superior sacral sulcus - Pelvic Distraction: positive for concordant pain referred over the superior sacral sulcus - Sacral Thrust: positive for concordant pain referred over the superior sacral sulcus - Hip Hyperextension: positive for concordant pain referred over the superior sacral sulcus Diagnoses: No diagnosis found. Impression & Plan: 76 year old female presents with complaint(s) of low back pain Akila De Los Santos would benefit from the following to decrease pain, improve function and/or work participation, and improve quality of life: Interventional Procedure(s): Bilateral Sacroiliac joint injections under fluoroscopic guidance The risks, benefits, alternative treatment options and prognosis of the procedure were discussed and all of the patient's questions/concerns were addressed to the patient's satisfaction. The patient expressed understanding and gave verbal consent to proceed. Medications: Continue neurontin Refill tramadol Signed Prescriptions Disp Refills traMADol (ULTRAM) 50 mg tablet 45 tablet 0 Sig: Take 1 tablet by mouth twice daily for 30 days. Use sparingly BHARATHI Class: C-IV DEYA: No traMADol (ULTRAM) 50 mg tablet 45 tablet 0 Sig: Take 1 tablet by mouth twice daily for 30 days. Use sparingly Do not start before December 04, 2021. BHARATHI Class: C-IV DEYA: No ISA-7/PHQ-2, and ORT: Reviewed 11/04/2021 Functional Restorationism: Home Exercise Program under provider supervisions Additional Studies: None Referrals: None Depending on response to the above plan, consider: epidural Follow-up: 2 Months for medication evaluation, optimization and refill as appropriate UDS last visit was reviewed and was consistent. Patient reports they are happy with current treatment care plan. At this time will continued the patient's opioids today for 60 days. The patient continues to see benefit and improvement in their quality of life with adequate analgesia and ADLS's maintained. No adverse effects, no aberrant behaviors noted; OARRS reviewed and consistent. Risks of long-term medication use was reviewed and Patient advised the above medications may cause impairment of judgement while driving or operating machinery. Patient instructed on safe storage of medications We will re-evaluate opiate regimen in 60 days, office visit, to determine efficacy of treatment to ensure that we are using the lowest dose for maximum benefit. Nicole French PA-C ([place]) [facility] Review of Systems Constitutional: Negative for activity change, chills, fever and unexpected weight change. Gastrointestinal: Negative for bowel retention or incontinence Genitourinary: Negative for difficulty urinating. Negative for bladder retention or incontinence Musculoskeletal: Positive for arthralgias, back pain, gait problem, joint swelling, myalgias, neck pain and neck stiffness. Neurological: Positive for weakness. Negative for numbness and headaches. Psychiatric/Behavioral: Negative for dysphoric mood, sleep disturbance and suicidal ideas. The patient is not nervous/anxious. documented in this encounter [facility] 10-27-2021 History of Present illness Narrative [facility] Telephone Encounter Date: 10/27/2021 A Telephone Encounter was accomplished with this 76 year old female and we discussed the following concerns and complaints: HPI o Obtain verbal consent for visit: eg. Due to the Coronavirus, we are providing our patients with the opportunity for medical visits by phone to help keep everyone healthy. Are you ok with us doing that today? o Do you have any family members present today? o Remind patient this is a scheduled 15 minute phone/video appointment. o Do you have all your medications in front of you for us to review? o Did you take your BP, pulse within the last hour? Did you check your sugar today? o I know the nurses had asked you to think about the 2 most important things you wanted to speak with me about today, could you share those with me? Akila De Los Santos has consented to this telephone encounter. Persons Present: patient Chief Complaint/Reason: follow up HPI: Last visit we discussed the following: Recent: UTI. Given Macrobid. Visit prior w/ this Provider: - Jerky movements on tx for tremor (primidone) - Pulled her back out while cleaning (lower back down R thigh/knee Today the patient had the following concerns: On med for UTI. Burning has stopped. Has 1 more day meds left. ?look into messaging system. BP: In office 138/61. Today 132/68 Highest 6/9- 154/69. Others in 140s No CP/SOB/FAIRCHILD. LE edema: better. Not using compression stockings Jerky movements: Occurring daily. Shakiness is all the time. Jerking sporadic. Both hands. Thinks jeriness preceeded primidone. Improved on Primidone but still present. Feels like she's been more steady. Can maneuver on computer better. 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 tiZANidine (ZANAFLEX) 4 mg tablet Take 1 tablet by mouth every 8 hours as needed. gabapentin (NEURONTIN) 600 mg tablet Take 1 tablet by mouth three times daily for 180 days. [START ON 11/01/2021] traMADol (ULTRAM) 50 mg tablet Take 1 tablet by mouth twice daily for 30 days. Use sparingly Do not start before November 01, 2021. traMADol (ULTRAM) 50 mg tablet Take 1 tablet by mouth twice daily for 30 days. Do not start before October 02, 2021. (Patient not taking: Reported on 09/25/2021) amLODIPine (NORVASC) 10 mg tablet Take 1 tablet by mouth once daily. indapamide (LOZOL) 2.5 mg tablet Take 1 tablet by mouth once daily. citalopram (CELEXA) 20 mg tablet Take 1 tablet by mouth once daily. primidone (MYSOLINE) 50 mg tablet Take 0.5 tablets by mouth daily at bedtime for 7 days, THEN 0.5 tablets daily at bedtime for 7 days, THEN 1 tablet daily at bedtime. montelukast (SINGULAIR) 10 mg tablet Take 1 tablet by mouth daily at bedtime. BREO ELLIPTA 200-25 mcg/dose inhaler Inhale 1 Inhalation as instructed once daily. albuterol HFA (VENTOLIN HFA) 90 mcg/actuation inhaler Inhale 2 Puffs as instructed every 4 hours as needed for wheezing/shortness of breath. rosuvastatin (CRESTOR) 10 mg tablet TAKE 1 TABLET BY MOUTH ONCE DAILY AT BEDTIME doxazosin (CARDURA) 4 mg tablet Take 1 tablet by mouth once daily. potassium chloride 20 mEq TbER Take 2 tablets by mouth twice daily. valACYclovir (VALTREX) 1 gram Take 1 tablet by mouth once daily. blood sugar diagnostic (ACCU-CHEK KAYCEE PLUS TEST STRP) test strip Use as instructed to check blood sugar once daily as needed. Lancets lancets Use as instructed to check blood sugar once daily as needed Current Facility-Administered Medications Medication Dose Route Frequency perflutren lipid microspheres 1.3 mL in NaCl (PF) 0.9% 10 mL injection (DEFINITY) INTRAVENOUS DIRECTED PRN sodium chloride 0.9 % (flush) 10 mL (BD POSIFLUSH) 10 mL INTRAVENOUS DIRECTED PRN REVIEW OF SYSTEMS: GENERAL: feeling well without fatigue, no recent change in weight HEENT: denies FAIRCHILD, change in hearing or vision, no other ENT complaints RESPIRATORY: no cough, no wheezing or shortness of breath CARDIOVASCULAR: no chest pain, no palpitations GI: normal appetite, tolerating PO well, BMs normal and no abdominal pain Data Reviewed: Most recent labs PHYSICAL EXAMINATION: No Vitals were taken today The patient was oriented, alert, with good memory. Speech was appropriate. Total time in direct patient contact = 20 min. Greater than 50% of the time was spent in counseling and/or coordination of care. This Team Access Model visit is a phone encounter. It required patient-provider interaction for the medical decision making as documented below. Assessment / Plan: ASSESSMENT/PLAN: 1. Hypertension, essential - ICD9: 401.9, ICD10: I10 (primary diagnosis) - fair control - Continue current medication(s) - Encouraged dietary sodium restriction/DASH diet - Recommended regular aerobic exercise. - Recommend home blood pressure monitoring, to bring results in on next visit - Goal of BP <140/90 - INDAPAMIDE 2.5 MG TABLET 2. Essential tremor - ICD9: 333.1, ICD10: G25.0 - Recommended up-titrating primidone to 100mg qhs. Inform office if tremor gets worse. Has appt to see Neurology in a couple of months. Betty Bueno MD documented in this encounter [facility] 10-23-2021 History of Present illness Narrative Images from the original note were not included. Tanner Ghotra Jr, [facility] [address] [place] [address] [facility] / [address] [place], [place] [address] Visit Date: October 23, 2021 Name: Akila De Los Santos Date of : 1945 MRN/E #: [id number] Chief Complaint: Urinary Frequency (UTI symptoms burning and frequency for 2 weeks ) Subjective Akila De Los Santos is a 76 year old female here with the following complaint(s): HPI Patient presenting with chief complaint of urinary frequency and dysuria. She states these symptoms have been present for the past two weeks. She states she took over the counter generic Azo for two days without any relief. Over the past few days, dysuria has slightly improved, but frequency has worsened. She states she has had prior UTI's and this feels similar. Denies hematuria, fever, chills, diaphoresis, flank pain. She reports back pain that is chronic and unchanged. Patient reports neck pain as well, stating she saw orthopedic surgery on 10/08 after injuring it on . At that visit, a cervical xray was ordered, which per the ortho interpretation showed degenerative changes at C4-C5 and C5-C6 level. She was referred to physical therapy at that time. She states she also plans to follow up with pain management for this problem. Review of Systems Constitutional: Negative for chills, diaphoresis and fever. Eyes: Negative for pain and visual disturbance. Respiratory: Negative for shortness of breath. Cardiovascular: Negative for chest pain, palpitations and leg swelling. Gastrointestinal: Negative for abdominal pain, constipation, diarrhea, nausea and vomiting. Genitourinary: Positive for dysuria, frequency and urgency. Negative for flank pain and hematuria. Musculoskeletal: Positive for back pain (chronic, unchanged). Skin: Negative for color change. Neurological: Negative for dizziness, light-headedness and headaches. Social History Tobacco Use Smoking status: Never Smoker Smokeless tobacco: Never Used Substance Use Topics Alcohol use: Never Drug use: Never ALLERGIES Allergen Reactions Aspirin Shortness of Breath Lisinopril Swelling Latex Rash Penicillins Hives, Rash Sulfamethoxazole Hives Current Outpatient Medications Medication Sig tiZANidine (ZANAFLEX) 4 mg tablet Take 1 tablet by mouth every 8 hours as needed. gabapentin (NEURONTIN) 600 mg tablet Take 1 tablet by mouth three times daily for 180 days. [START ON 11/01/2021] traMADol (ULTRAM) 50 mg tablet Take 1 tablet by mouth twice daily for 30 days. Use sparingly Do not start before November 01, 2021. amLODIPine (NORVASC) 10 mg tablet Take 1 tablet by mouth once daily. citalopram (CELEXA) 20 mg tablet Take 1 tablet by mouth once daily. primidone (MYSOLINE) 50 mg tablet Take 0.5 tablets by mouth daily at bedtime for 7 days, THEN 0.5 tablets daily at bedtime for 7 days, THEN 1 tablet daily at bedtime. montelukast (SINGULAIR) 10 mg tablet Take 1 tablet by mouth daily at bedtime. BREO ELLIPTA 200-25 mcg/dose inhaler Inhale 1 Inhalation as instructed once daily. albuterol HFA (VENTOLIN HFA) 90 mcg/actuation inhaler Inhale 2 Puffs as instructed every 4 hours as needed for wheezing/shortness of breath. rosuvastatin (CRESTOR) 10 mg tablet TAKE 1 TABLET BY MOUTH ONCE DAILY AT BEDTIME doxazosin (CARDURA) 4 mg tablet Take 1 tablet by mouth once daily. potassium chloride 20 mEq TbER Take 2 tablets by mouth twice daily. valACYclovir (VALTREX) 1 gram Take 1 tablet by mouth once daily. blood sugar diagnostic (ACCU-CHEK KAYCEE PLUS TEST STRP) test strip Use as instructed to check blood sugar once daily as needed. Lancets lancets Use as instructed to check blood sugar once daily as needed nitrofurantoin monohydrate and macrocrystal (MACROBID) 100 mg capsule Take 1 capsule by mouth twice daily for 5 days. traMADol (ULTRAM) 50 mg tablet Take 1 tablet by mouth twice daily for 30 days. Do not start before October 02, 2021. (Patient not taking: Reported on 09/25/2021) indapamide (LOZOL) 2.5 mg tablet Take 1 tablet by mouth once daily. Current Facility-Administered Medications Medication Dose Route Frequency perflutren lipid microspheres 1.3 mL in NaCl (PF) 0.9% 10 mL injection (DEFINITY) INTRAVENOUS DIRECTED PRN sodium chloride 0.9 % (flush) 10 mL (BD POSIFLUSH) 10 mL INTRAVENOUS DIRECTED PRN I have confirmed and edited as necessary the chief complaint, medications, past medical, family and social histories. Objective 10/23/21 1441 BP: 138/61 BP Site: Right Arm BP Position: Sitting BP Cuff Size: Regular Adult Pulse: (!) 58 Resp: 18 Temp: 36.2 C (97.2 F) TempSrc: Temporal SpO2: 100% Weight: 149 lb 12.8 oz (67.9 kg) Body mass index is 29.26 kg/m . Physical Exam Vitals reviewed. Constitutional: General: She is not in acute distress. Appearance: Normal appearance. She is not ill-appearing, toxic-appearing or diaphoretic. HENT: Head: Normocephalic and atraumatic. Eyes: General: No scleral icterus. Conjunctiva/sclera: Conjunctivae normal. Neck: Comments: Tenderness to palpation over lower cervical spinous processes. Hypertonic cervical paraspinal musculature throughout. Exaggerated cervical kyphosis. Limited ROM secondary to neck tightness Cardiovascular: Rate and Rhythm: Normal rate and regular rhythm. Pulses: Normal pulses. Heart sounds: Normal heart sounds. No murmur heard. Pulmonary: Effort: Pulmonary effort is normal. No respiratory distress. Breath sounds: Normal breath sounds. No wheezing, rhonchi or rales. Abdominal: General: Abdomen is flat. Bowel sounds are normal. There is no distension. Palpations: Abdomen is soft. Tenderness: There is no abdominal tenderness. There is no right CVA tenderness, left CVA tenderness or guarding. Musculoskeletal: Cervical back: Neck supple. Right lower leg: No edema. Left lower leg: No edema. Skin: General: Skin is warm. Capillary Refill: Capillary refill takes less than 2 seconds. Neurological: General: No focal deficit present. Mental Status: She is alert. Psychiatric: Mood and Affect: Mood normal. Results for orders placed or performed in visit on 10/23/21 UA DIP, URINE (POC) Result Value Ref Range GLUCOSE UA (POCT) Negative Negative mg/dL BILIRUBIN UA (POCT) Negative Negative KETONE UA (POCT) Negative Negative mg/dL SPECIFIC GRAVITY UA (POCT) 1.020 1.005 - 1.030 HEMOGLOBIN/BLOOD UA (POCT) Trace-intact (A) Negative PH UA (POCT) 7.0 4.5 - 8.0 PROTEIN UA (POCT) 100 (A) Negative mg/dL UROBILINOGEN UA (POCT) 0.2 Normal E.U./dL NITRITE UA (POCT) Negative Negative LEUKOCYTES UA (POCT) Moderate (A) Negative COLOR UA (POCT) Yellow CLARITY UA (POCT) Cloudy Assessment / Plan ASSESSMENT/PLAN: 1. Dysuria - ICD9: 788.1, ICD10: R30.0 (primary diagnosis) - in office UA with positive for trace blood, 100 mg/dL protein, moderate leukocyte esterase - given UA and symptoms, will begin treatment with macrobid - no signs or symptoms of complicated UTI - allergies to penicillin and sulfa - UA DIP, URINE (POC) - URINE CULTURE - NITROFURANTOIN MONOHYDRATE & MACROCRYSTAL 100 MG ORAL CAP 2. Neck pain - ICD9: 723.1, ICD10: M54.2 - called radiology for read of previously done cervical xray - multilevel cervical degenerative disease, no evidence of dislocation or fracture - advised heating pad, previously prescribed muscle relaxer prn, gentle stretching - patient states she has follow up with pain management for her back and neck pain Return if symptoms worsen or fail to improve. Discussed the above with the patient using shared decision-making. The patient is in agreement with the diagnostic and treatment plans. Provider: Tanner Ghotra Jr, DO Date: October 23, 2021 Time: 2:45 PM documented in this encounter [facility] 10-16-2021 History of Present illness Narrative PAIN EVALUATION No data found in the last 1 encounters. Akila De Los Santos presents today for: Follow-up left shoulder pain with MRI review CHANGES SINCE LAST VISIT: She continues to have pain in the shoulder not changed since her last visit. She is having some stiffness and pain in her neck as well without associated symptoms of numbness or tingling or pain in the upper extremity Resp 21 Ht 152.4 cm (5') Wt 68.9 kg (152 lb) BMI 29.69 kg/m EXAMINATION FINDINGS: Shoulder Musculoskeletal Exam Examination essentially unchanged today. Cervical spine range of motion testing indicated some stiffness in flexion and extension without recreation of her shoulder pain. IMAGING: I personally reviewed the MRI of the left shoulder in the office today, and I am in agreement with the radiologist's interpretation with the following modifications: None IMPRESSION: Mild to moderate diffuse supraspinatus tendinosis along with a 2 mm interstitial partial tear at the midportion of the mid to distal tendon. I reviewed radiographs of her cervical spine including AP and lateral views showing straightening and partial reversal of the normal cervical lordosis with degenerative changes at the C4-5 and C5-6 level MEDICAL DECISION MAKING: (M25.512, G89.29) Chronic left shoulder pain (primary encounter diagnosis) Comment: We discussed her MRI findings of tendinosis of her rotator cuff without noticeable tearing. She may be having some degenerative tearing of her superior labrum or biceps tendon will attempt conservative management at this time. Plan: CONSULT TO PHYSICAL THERAPY A comprehensive physical therapy program was ordered today after discussion of conservative treatment. Physical therapy would be expected to provide benefit within approximately 6 to 12 weeks of starting the program. This will likely involve both in person visits as well as a structured home program. The importance of adherence to the physical therapy program for the best possible outcome was discussed today. (M54.2) Neck pain Comment: We discussed a new problem with her neck today, does not appear related to her shoulder pain but would benefit from treatment with physical therapy. Plan: CONSULT TO PHYSICAL THERAPY, XR CERV GENERAL 2V AP/LAT Information for medical decision making today comes from review of the following data: History, exam, imaging Priscilla Telles MD Shoulder & Elbow Surgeon Department of Orthopaedic Surgery [facility] Medical Decision Making documented in this encounter [facility] 09-29-2021 Miscellaneous Notes Radiology Service Progress Note PATIENT NAME: Akila De Los Santos DATE OF SERVICE: September 29, 2021 TIME: 11:09 AM PATIENT IDENTITY VERIFICATION COMPLETED USING TWO (2) IDENTIFIERS: Name and Date of confirmed by patient verbally. FALL SCREENING: Has the patient had 2 falls in the last year or 1 fall with injury or currently using an Ambulatory Assistive Device (Walker, Cane, Wheelchair, Crutches, etc.)? No PATIENT GENDER DATA: Female. status: : No status: NO. PATIENT RELEVANT IMPLANT DATA REVIEWED: Yes RADIOLOGY DEPARTMENT: MR; Exam(s) Completed: Upper MSK: Shoulder, left PERIPHERAL IV DATA: Not applicable SIGNED BY: RT Navarro(R) September 29, 2021 11:09 AM documented in this encounter [facility] 09-25-2021 History of Present illness Narrative The patient is a 76-year-old female with a PMH of htn presenting for blood pressure check and medication changes. She notes improvement in her hot flashes; the frequency and severity of episodes has been reduced. She also notes improvement in her tremors but states that she gets sudden jerky movements. She is also in a lot of pain in her back, right hip, and upper leg. She states that today is the first day she has been able to walk any distance. On , she stood on a chair in order to clean her light covers. She notes that she believes she must have pulled a muscle in her back at that time. She was unable to lay down or stand without pain. She notes that she has an appointment with Pain Management in November. Subjective Hypertension This is a chronic problem. Pertinent negatives include no anxiety, blurred vision, chest pain, headaches, palpitations, peripheral edema or shortness of breath. 76yo AA W w/ MMP presenting for BP f/u. Last visit increased Norvasc from 5 to 10mg daily. Reports again improvement in hot flashes. Reports improvement in tremors, but also noted new jerky movements. Since starting primidone has noticed some uncontrollable jerky movement. Jerking in last week or so. stood on chair to clean light covers, and thinks she strained her back. Gradually after that, had pain in lower back, radiating down R thigh to knee. Pain: 8/10; improved. Catches. Heating pad gives some relief. Review of Systems Eyes: Negative for blurred vision. Respiratory: Negative for shortness of breath. Cardiovascular: Negative for chest pain and palpitations. Neurological: Negative for headaches. BP 140/61 Pulse 67 Temp 36.4 C (97.5 F) Ht 5' (1.524 m) Wt 152 lb (68.9 kg) BMI 29.69 kg/m Objective Physical Exam Vitals and nursing note reviewed. HENT: Head: Normocephalic and atraumatic. Right Ear: External ear normal. Left Ear: External ear normal. Nose: Nose normal. Mouth/Throat: Pharynx: No oropharyngeal exudate. Eyes: General: No scleral icterus. Conjunctiva/sclera: Conjunctivae normal. Pupils: Pupils are equal, round, and reactive to light. Cardiovascular: Rate and Rhythm: Normal rate and regular rhythm. Heart sounds: Normal heart sounds. No murmur heard. No friction rub. No gallop. Pulmonary: Effort: Pulmonary effort is normal. No respiratory distress. Breath sounds: Normal breath sounds. No wheezing or rales. Abdominal: General: Bowel sounds are normal. There is no distension. Palpations: Abdomen is soft. Tenderness: There is no abdominal tenderness. There is no guarding or rebound. Musculoskeletal: General: Tenderness present. No deformity. Normal range of motion. Comments: Very TTP in the lower lumbar paraspinal region. ROM diminished 2/2 pain. Skin: General: Skin is warm and dry. Coloration: Skin is not pale. Findings: No erythema or rash. Neurological: Mental Status: She is alert. Comments: no cog-wheel rigity Psychiatric: Mood and Affect: Affect normal. Says allergic to lidocaine. ASSESSMENT/PLAN: 1. Acute right-sided low back pain with right-sided sciatica - ICD9: 724.2, 724.3, ICD10: M54.41 (primary diagnosis) Likely lumbar muscle strain compounding known lumbar radiculopathy. Warm moist heat for 20 min three times a day- Ice for localized tenderness - TIZANIDINE 4 MG TABLET - Follow up with Pain Mgt as scheduled. Already on Tramadol. 2. Preventive measure - ICD9: V07.9, ICD10: Z29.9 - ADVANCE CARE PLAN DISCUSSION 3. Hypertension, essential - ICD9: 401.9, ICD10: I10 - fair control - Continue current medication(s) - Encouraged dietary sodium restriction/DASH diet - Recommended regular aerobic exercise. - Recommend home blood pressure monitoring, to bring results in on next visit - Goal of BP <130/80 4. Involuntary movements - ICD9:- 781.0, ICD10: R25. - Refer to Neurology if persistent. Betty Bueno MD documented in this encounter [facility] 09-24-2021 Miscellaneous Notes Patient called in and left a vm about needing to be scheduled with Abdulaziz, I called her back and let her know she is scheduled with Abdulaziz already for November 23. I also asked her did she need another appointment or was she trying to confirm. She said she injured herself Tuesday and was in a lot of pain. I let her know I will add appt to the waitlist but [facility] does not have anything. documented in this encounter [facility] 09-11-2021 History of Present illness Narrative Subjective HPI Review of Systems Constitutional: Negative for chills and fever. Eyes: Negative for blurred vision and double vision. Gastrointestinal: Negative for nausea and vomiting. Genitourinary: Negative for dysuria. Musculoskeletal: Positive for back pain and joint pain. Negative for neck pain. Neurological: Negative for dizziness, tingling and headaches. Endo/Heme/Allergies: Does not bruise/bleed easily. Psychiatric/Behavioral: Negative for depression and suicidal ideas. The patient is not nervous/anxious. PAST MEDICAL HISTORY Diagnosis Date Asthma Diabetes mellitus (HCC) DJD (degenerative joint disease) Osteoarthritis of multiple joints PAD (peripheral artery disease) ([facility]) TIA (transient ischemic attack) PAST SURGICAL HISTORY Procedure Laterality Date CATARACT EXTRACTION HX Left 11/2016 CATARACT EXTRACTION HX Right 11/2018 TOTAL ABDOM HYSTERECTOMY FAMILY HISTORY Problem Relation Age of Onset Blindness Maternal Grandmother Social History Tobacco Use Smoking status: Never Smoker Smokeless tobacco: Never Used Substance Use Topics Alcohol use: Never Drug use: Never Current Meds amLODIPine (NORVASC) 10 mg tablet Take 1 tablet by mouth once daily. traMADol (ULTRAM) 50 mg tablet Take 1 tablet by mouth twice daily for 30 days. Use sparingly indapamide (LOZOL) 2.5 mg tablet Take 1 tablet by mouth once daily. citalopram (CELEXA) 20 mg tablet Take 1 tablet by mouth once daily. primidone (MYSOLINE) 50 mg tablet Take 0.5 tablets by mouth daily at bedtime for 7 days, THEN 0.5 tablets daily at bedtime for 7 days, THEN 1 tablet daily at bedtime. montelukast (SINGULAIR) 10 mg tablet Take 1 tablet by mouth daily at bedtime. [START ON 09/19/2021] gabapentin (NEURONTIN) 800 mg tablet Take 1 tablet by mouth three times daily for 90 days. Do not start before September 19, 2021. gabapentin (NEURONTIN) 600 mg tablet Take 1 tablet by mouth three times daily for 30 days. BREO ELLIPTA 200-25 mcg/dose inhaler Inhale 1 Inhalation as instructed once daily. albuterol HFA (VENTOLIN HFA) 90 mcg/actuation inhaler Inhale 2 Puffs as instructed every 4 hours as needed for wheezing/shortness of breath. rosuvastatin (CRESTOR) 10 mg tablet TAKE 1 TABLET BY MOUTH ONCE DAILY AT BEDTIME doxazosin (CARDURA) 4 mg tablet Take 1 tablet by mouth once daily. potassium chloride 20 mEq TbER Take 2 tablets by mouth twice daily. valACYclovir (VALTREX) 1 gram Take 1 tablet by mouth once daily. blood sugar diagnostic (ACCU-CHEK KAYCEE PLUS TEST STRP) test strip Use as instructed to check blood sugar once daily as needed. Lancets lancets Use as instructed to check blood sugar once daily as needed Objective There were no vitals taken for this visit. Physical Exam [facility] [place] General Name: Akila De Los Santos : 1945 Purpose: Follow-up Date: 09/11/2021 Last visit Date 06/26/2021 Interval History: Akila De Los Santos reports that her low back pain is still improved since last encounter. She had bilateral SI joint injections on 04/07/2021, still reports 90% relief of pain on the right, left side occasionally hurting. She is having more frequent pain radiating into the buttocks and posterior thighs, worse when walking, using a straight cane for support. Continues taking and tolerating Neurontin 600mg TID and Tramadol 50mg PRN basis. Still taking Tramadol significantly less since the injection. Less right foot dysesthesias in the base of the foot. She saw Ortho for her left shoulder, MRI Pending. Recall: (From 06/2021) She reports periodic tremors in both hands. She reports that she had an Electrodiagnostic Study more than 15 years ago in the upper limbs, does not recall the results, is not interested in seeing Neurology. Current Status: INTAKE PAIN ASSESSMENT 09/10/2021 09/11/2021 Are you having pain associated with your visit today? 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) - - Pain: Timing: not constant, but has every day Character: Pins and [place], Sharp and Aching Primary location: axial low back Radiation: right lower limb, posterior limb to the foot; occasionally left knee region Exacerbated factors: Prolonged standing and walking; sitting Alleviating factors: Changing positions Medications requiring refills today: Tramadol 50mg Date last filled: 09/02/2021 Quantity filled: 45 How many left: 39 Time most recent dose taken: Yesterday at 6pm Non-Opioid Medications requiring refills today: o Tylenol Arthritis (OTC) o Neurontin 600mg TID Compliance: Safety Checklist: Are you taking proper precautions to safe guard your medication? Yes Taking the medications as prescribed? Yes Getting pain medications from another physician? No Obtaining pain medication from another source? No Sharing medications with friends/family? No Quality of life improved as a result of taking these medications? Yes Any side effect with this medication? No Justification for Continued Opioid Care: Adequate analgesia? Yes Aberrant drug seeking behavior? No Adverse reactions? No Medications improve quality of life? Yes Function: Weekly Activity Level (0=none; 92=497+ minutes of total activity not including work activity): 07/02 (Physician estimate) Ambulation and Activities of Daily Living: With straight cane Device for community ambulation Independent Exercise(s) or Activities: Walking in the park Work participation: Retired Functional Goals: To be able to walk for exercise more frequently Initial HPI: (Obtained on 12/19/2020) Consult. Akila De Los Santos is a 75 year old year-old female, who presents with the following chief complaint(s): low back pain. Symptoms were first noted many years ago. The onset of symptoms was not sudden and was without associated trauma. Treatments prior to initial presentation include the following: Medications (See below), Injections (See below), Surgery (See below), Modalities (eg. Heat, Ice), Physical Therapy , Home Exercise Program and Activity Modification. She has a history of scoliosis, ultimately resulting in 3 low back surgeries, most recent in 2004, with hardware. She has continued to have sciatica pain, which has been managed by Dr. Ramírez in [place] for pain management with medications and injections. She just moved to [place] and is looking to establish a pain doctor in the region. She has had three lumbar epidural steroid injections, most recently October 17, 90% relief, typically lasting 2-3 months. Also has neuropathy and low back arthritis. Compliance: PDMP website checked and validated. All prescriptions have been APPROPRIATELY filled. No suspicious activity was identified. by Bekah Cintron MD 09/11/2021 Last UDS: 06/2021 - appropriate (positive Tramadol) 01/2021 - appropriate (positive Tramadol) Pain Medications Taken to Date (for the chief complaint(s)): Membrane Stabilizers: Neurontin (Gabapentin) NSAIDS: none Opioids: Tramadol Muscle Relaxants: none Topicals: Voltaren Gel, Aspercreme - helps Other Prescription or OTC Pain Medications: none Non-Pain Meds of Note: None Allergies: ALLERGIES Allergen Reactions Aspirin Shortness of Breath Lisinopril Swelling Latex Rash Penicillins Hives, Rash Sulfamethoxazole Hives Current Medications, Past Medical History, Past Surgical History, Family History & Social History: Reviewed on today's date, noted in the attribution Outside Records: [place] [facility], reviewed 01/30/2021: 08/2020 - Right Hip injection (80% reduced) - relief lasted 4 months 05/2020 - Bilateral SI joint injection (95% reduced pain) - relief lasted 6 months Review of Systems: Reviewed on today's date, noted in the attribution Pertinent Positives: MSK - pain in the region being treated Neuro: weakness or numbness in the region being treated Skin: Negative (No itching) Eyes: Negative (No blurred or double vision) Respiratory: Negative (No Cough, [id number]-[id number], Dyspnea on exertion, wheezing) Cardiovascular: Negative (No Chest Pain, Tightness, Pressure, Palpitations) Gastrointestinal: Negative (No Abdominal pain, Nausea, Vomiting, Constipation, Diarrhea) Genitourinary: Negative (No dysuria) Hematologic: Negative (No bleeding, bruising) OB: is Denied or Not Applicable Endocrine: Negative (No hot/cold intolerance) Psychiatric: Negative (No depression, anxiety or suicidal ideation) Diagnostic Studies: Reviewed Personally on today's date, noted in the attribution MRI Spine Report No resulted procedures found. MRI Lumbar spine 09/2019 ([facility] - reviewed 06/26/2021 ): Neural Foraminal Stenosis: None Central Canal Stenosis: Wjlk-ce-bbwwqvlh at L4-5 Facet-Arthropathy: L1-2, L3-4, L4-5 Disc Protrusion/Bulge: Disc height Loss L1-2, Vertebrae: Minor irregularities inferior end plate T10, Schmorl's note superior L2 end plate with type 1 Modic changes Hardware: Metallic screws left L2 - S1, right L5-S1, Disc implant at L3-4 Alignment: Mild anterolisthesis L4-5 Other: L5 laminectomy DATE PROCEDURE IMPROVEMENT 04/07/2021 Bilat SI Joint 90% x 6 months Physical Exam: 09/11/21 1337 Pulse: (!) 55 Resp: 14 SpO2: 99% Constitutional:overweight Eyes: Conjunctiva clear. No discharge from eyes Cardiovascular: Appears well perfused Lymphatic: No visible regional lymphadenopathy Skin: No visible rashes or ecchymosis Psychiatric: Full affect, Alert, Pleasant Neuro-Lower: Neural Tension Signs: ? Negative slump in Bilateral lower limbs Sensation: ? intact to light touch in the L2-S2 Bilateral lower limb dermatomes Muscle Tone: ? Normal and symmetric throughout without clonus Strength: ? Iliopsoas (L2): 5 Left, 5 Right ? Quadriceps (L3) 5 Left, 5 Right ? Anterior Tibialis (L4): 5 Left, 5 Right ? Extensor Hallucis Longus (L5): 5 Left, 5 Right ? Gastrocnemius (S1): 5 Left, 5 Right Reflexes: ? Decreased 1+ and symmetric Patellar, Achilles ? Downgoing plantar responses (negative Babinski) bilaterally Musculoskeletal-Lower: Inspection: ? Symmetric without atrophy Palpation: ? Lumbar Paraspinal Tenderness: None on Bilateral side(s) ? Paraspinal Spasms: None ? PSIS Tenderness: None on Bilateral side(s) ? Greater Trochanter Tenderness: None on Bilateral side(s) Spine Range of Motion: ? Flexion: Decreased 25% Without end range pain ? Extension: Decreased 25% Without end range pain ? Combination extension and rotation pain: None Hip Range of Motion: ? Right Hip: ? Internal Rotation: Normal; Pain at end range: None ? External Rotation: Normal; Pain at end range: None ? Left Hip: ? Internal Rotation: Normal; Pain at end range: None ? External Rotation: Normal; Pain at end range: None Sacroiliac Maneuvers: Deferred Diagnoses: (M96.1) Post laminectomy syndrome (primary encounter diagnosis) (M54.16) Lumbar radiculopathy (M46.1) Sacroiliitis (HCC) (Z79.891) Encounter for long-term use of opiate analgesic Impression: 76 year old female with significant past medical history for low back decompressive surgeries x 3, scoliosis, who presents with complaint(s) of ongoing axial low back pain, lower limb radicular symptoms due to spinal stenosis. Has been established with pain management in [place], just moved to [place]. Stable on very low doses of medication. Good relief of pain following SI Joint injections. Plan: Akila De Los Santos would benefit from the following to reach personal goals for decreasing pain, improving function and work participation, and/or improving quality of life: Medication(s): Tramadol 50mg, disp #45, 2 refill OIC: The opioid informed consent was reviewed and signed by the patient and a copy was offered (01/2021) Neurontin 600mg TID - continue Tylenol OTC - continue Additional Studies: None Referrals: No additional considerations at present Functional Restorationism: Home Exercise Program: Prescribed on 12/19/2020 for the lumbar region(s) Range of motion exercises and Stretches To be performed at least 3 times per week under this Physician's supervision Depending on response to the above-mentioned plan of care, in the future may consider evaluation for: Repeat SI Joint injection; Switch to Lyrica; SI Joint RFA (prefers to avoid RFA at this time); Caudal Epidural Steroid Injection -Follow-up: 2 months Attribution: In addition to reviewing the information noted above, some elements copied from my most recent clinical note(s), including the physical exam (completed in entirety today), and the impression and plan sections, have been updated where appropriate. All reflect current medical decision making from today's date. Bekah Cintron MD, MBA Pain Management [facility] documented in this encounter [facility] 09-11-2021 History of Present illness Narrative Images from the original note were not included. ORTHOPAEDIC SHOULDER & ELBOW SERVICE HISTORY & PHYSICAL EXAM REFERRING PROVIDER: Betty Tapia [facility] [id number] CHIEF COMPLAINT: Left shoulder pain and weakness PAIN EVALUATION 09/10/2021 1509 Pain Level: 0/10 @ rest, painful when raising arm up Pain Location: left shoulder Description: Aching Duration Units: Years Frequency: Intermittent Intervention/Comfort measure: Reposition;Relaxation;Medication DURATION: Ongoing for years and worsening in the past few months. She has done physical therapy for the shoulder without improvement. She has been evaluated by director river restoration who suspected rotator cuff tear rather than rheumatoid arthritis in the left shoulder. INJURY: None TREATMENTS:Physical therapy, medication GOALS OF TREATMENT: Improve function, relieve pain PAST MEDICAL HISTORY: PAST MEDICAL HISTORY Diagnosis Date Asthma Diabetes mellitus (HCC) DJD (degenerative joint disease) Osteoarthritis of multiple joints PAD (peripheral artery disease) ([facility]) TIA (transient ischemic attack) PAST SURGICAL HISTORY: PAST SURGICAL HISTORY Procedure Laterality Date CATARACT EXTRACTION HX Left 11/2016 CATARACT EXTRACTION HX Right 11/2018 TOTAL ABDOM HYSTERECTOMY SOCIAL HISTORY: Social History Tobacco Use Smoking status: Never Smoker Smokeless tobacco: Never Used Substance Use Topics Alcohol use: Never Drug use: Never ALLERGIES: ALLERGIES Allergen Reactions Aspirin Shortness of Breath Lisinopril Swelling Latex Rash Penicillins Hives, Rash Sulfamethoxazole Hives MEDICATIONS: Current Outpatient Medications on File Prior to Visit Medication Sig amLODIPine (NORVASC) 10 mg tablet Take 1 tablet by mouth once daily. traMADol (ULTRAM) 50 mg tablet Take 1 tablet by mouth twice daily for 30 days. Use sparingly indapamide (LOZOL) 2.5 mg tablet Take 1 tablet by mouth once daily. citalopram (CELEXA) 20 mg tablet Take 1 tablet by mouth once daily. primidone (MYSOLINE) 50 mg tablet Take 0.5 tablets by mouth daily at bedtime for 7 days, THEN 0.5 tablets daily at bedtime for 7 days, THEN 1 tablet daily at bedtime. montelukast (SINGULAIR) 10 mg tablet Take 1 tablet by mouth daily at bedtime. [START ON 09/19/2021] gabapentin (NEURONTIN) 800 mg tablet Take 1 tablet by mouth three times daily for 90 days. Do not start before September 19, 2021. gabapentin (NEURONTIN) 600 mg tablet Take 1 tablet by mouth three times daily for 30 days. BREO ELLIPTA 200-25 mcg/dose inhaler Inhale 1 Inhalation as instructed once daily. albuterol HFA (VENTOLIN HFA) 90 mcg/actuation inhaler Inhale 2 Puffs as instructed every 4 hours as needed for wheezing/shortness of breath. rosuvastatin (CRESTOR) 10 mg tablet TAKE 1 TABLET BY MOUTH ONCE DAILY AT BEDTIME doxazosin (CARDURA) 4 mg tablet Take 1 tablet by mouth once daily. potassium chloride 20 mEq TbER Take 2 tablets by mouth twice daily. valACYclovir (VALTREX) 1 gram Take 1 tablet by mouth once daily. blood sugar diagnostic (ACCU-CHEK KAYCEE PLUS TEST STRP) test strip Use as instructed to check blood sugar once daily as needed. Lancets lancets Use as instructed to check blood sugar once daily as needed Current Facility-Administered Medications on File Prior to Visit Medication perflutren lipid microspheres 1.3 mL in NaCl (PF) 0.9% 10 mL injection (DEFINITY) sodium chloride 0.9 % (flush) 10 mL (BD POSIFLUSH) PHYSICAL EXAMINATION: Resp 18 Ht 152.4 cm (5') Wt 68.9 kg (152 lb) BMI 29.69 kg/m EXAM: Shoulder Musculoskeletal Exam General Constitutional: appears stated age Labored breathing: no Psychiatric: normal mood and affect and no acute distress Neurological: alert and oriented x3 Skin: intact Lymphadenopathy: none Inspection Inspection - Left Ecchymosis: none Peripheral edema: none Atrophy: none Deformity: none Symmetry: symmetric Masses: none Skin tenting: none Prior incision: none Palpation Palpation - Left Crepitus: no crepitus Increased warmth: none Range of Motion Range of Motion - Left Active ROM: abnormal and pain Passive ROM: abnormal and pain Active forward elevation: 90 Passive forward elevation: 120 Shoulder active abduction: 90 Passive abduction: 90 Active external rotation at side: 60 Passive external rotation at side: 60 Active external rotation in abduction: 80 Passive external rotation in abduction: 80 Active internal rotation in abduction: 60 Passive internal rotation in abduction: 60 Internal rotation: T12 Strength Strength - Left External rotation: 4+/5 Internal rotation: 4+/5 Abduction: 4+/5 Neurovascular Neurovascular - Left Left shoulder nerve sensation is normal. Scapula Scapula - Left Left shoulder scapula is normal. Special Tests Special Tests - Left Rotator Cuff Signs - Left Neer's test: positive Bennett test: positive External rotation lag sign: negative Supraspinatus: positive Belly press test: negative Painful arc test: positive Lift-off sign: negative Biceps/roxy Signs - Left [place]'s test: positive Clicking/popping: negative Speed's test: positive AC Joint Signs - Left Active horizontal adduction pain: negative Single finger test: negative IMAGING: I personally reviewed the radiographs of the left shoulder in the office today. Relevant findings: Normal shoulder MEDICAL DECISION MAKING: Functional Plan: This is a 76-year-old woman with persistent painful weakness in the left shoulder despite physical therapy and activity modification as well as medical management. Today we discussed the condition of the patient's shoulder and based on the level of weakness and pain recommended MRI to evaluate for possible rotator cuff tearing as a cause for continued pain and weakness in the shoulder. After this is obtained the patient should return to see me for discussion of the results and possible treatment planning including surgery. Patient may use the shoulder for all activities as tolerated in the meantime. Gentle home stretching was recommended. Medical decision making for today's visit was conducted with review of the following data sources: History, exam, imaging REFERRING PHYSICIAN: The patient was referred to me for consultation by the following physician. This consultation note will be sent to the following physician by either mail or electronic medical record. Betty Bueno [address] [address] X-rays next appointment: no Gown needed: no Priscilla Telles MD Shoulder & Elbow Surgeon Department of Orthopaedic Surgery [facility] Medical Decision Making REVIEW OF SYSTEMS: GENERAL: Well developed, well nourished. No acute distress PAIN:0/10 @ rest, painful when raising arm up CARDIOVASCULAR: Negative for chest pain, leg swelling and palpations. MSK: left shoulder SKIN: Negative for lesions, rash, itching, metal sensitivity NEURO: Negative for seizure, trauma, numbness/tingling of extremities. ENDOCRINE: Negative for diabetic associated symptoms HEMATOLOGY: Negative for excessive bleeding, clots, bleeding disorders. documented in this encounter [facility] 09-08-2021 History of Present illness Narrative VIRTUAL VISIT PROGRESS NOTE This is a virtual visit. It required patient-provider interaction for the medical decision making as documented below. HISTORY REVIEWED (electronic chart updated): o Obtain verbal consent for visit: eg. Due to the Coronavirus, we are providing our patients with the opportunity for medical visits by phone to help keep everyone healthy. Are you ok with us doing that today? o Do you have any family members present today? o Do you have all your medications in front of you for us to review? o Did you take your BP, pulse within the last hour? Did you check your sugar today? Akila De Los Santos has consented to this virtual encounter. Akila De Los Santos is a 76 year old female seen for follow up. Persons Present: patient HPI: Patient is a 76yo AA W w/ MMP including HTN, DMII presenting for 2 wk HTN follow up. Today: HTN: CP/SOB/FAIRCHILD/LE edema: no BP @ home: 130s/60s-150s/70s High: 1520/102. Today 152/78. Incontinence/nocturia- better Wakes up 1-2x/night, even with higher dose Lozol. Hot Flashes: much improved on Citalopram. Hot flashes have basically stopped. Every now and then gets a a little warm but nothing like before (w/ sweating etc). Tremor: Hasreally stopped shaking. Only has minor tremor if hand is leaning on something. Much improved on Primidone. No side effects. Has made a change in diet in an effort to improve blood sugars. Watching salt intake. 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 Use sparingly indapamide (LOZOL) 2.5 mg tablet Take 1 tablet by mouth once daily. citalopram (CELEXA) 20 mg tablet Take 1 tablet by mouth once daily. primidone (MYSOLINE) 50 mg tablet Take 0.5 tablets by mouth daily at bedtime for 7 days, THEN 0.5 tablets daily at bedtime for 7 days, THEN 1 tablet daily at bedtime. montelukast (SINGULAIR) 10 mg tablet Take 1 tablet by mouth daily at bedtime. [START ON 09/19/2021] gabapentin (NEURONTIN) 800 mg tablet Take 1 tablet by mouth three times daily for 90 days. Do not start before September 19, 2021. gabapentin (NEURONTIN) 600 mg tablet Take 1 tablet by mouth three times daily for 30 days. BREO ELLIPTA 200-25 mcg/dose inhaler Inhale 1 Inhalation as instructed once daily. albuterol HFA (VENTOLIN HFA) 90 mcg/actuation inhaler Inhale 2 Puffs as instructed every 4 hours as needed for wheezing/shortness of breath. amLODIPine (NORVASC) 5 mg tablet Take 1 tablet by mouth once daily. rosuvastatin (CRESTOR) 10 mg tablet TAKE 1 TABLET BY MOUTH ONCE DAILY AT BEDTIME doxazosin (CARDURA) 4 mg tablet Take 1 tablet by mouth once daily. Cyanocobalamin 1,000 mcg TbER Take 1 tablet by mouth once daily. potassium chloride 20 mEq TbER Take 2 tablets by mouth twice daily. valACYclovir (VALTREX) 1 gram Take 1 tablet by mouth once daily. blood sugar diagnostic (ACCU-CHEK KAYCEE PLUS TEST STRP) test strip Use as instructed to check blood sugar once daily as needed. Lancets lancets Use as instructed to check blood sugar once daily as needed Exlwe-8-SHM-EPA-Fish Oil (FISH OIL) 300-1,000 mg cap Take by mouth. calcium phosphate-vitamin D3 (CITRACAL-D3 GUMMIES) 250 mg-12.5 mcg (500 unit) chew Take by mouth. Current Facility-Administered Medications Medication Dose Route Frequency perflutren lipid microspheres 1.3 mL in NaCl (PF) 0.9% 10 mL injection (DEFINITY) INTRAVENOUS DIRECTED PRN sodium chloride 0.9 % (flush) 10 mL (BD POSIFLUSH) 10 mL INTRAVENOUS DIRECTED PRN Data Reviewed: Most recent labs and imaging results. REVIEW OF SYSTEMS: GENERAL: feeling well without fatigue, no recent change in weight, no fever HEENT: denies FAIRCHILD, change in hearing or vision, no other ENT complaints RESPIRATORY: no cough, no wheezing or shortness of breath CARDIOVASCULAR: no chest pain, no palpitations GI: normal appetite, tolerating PO well, BMs normal and no abdominal pain MUSCULOSKELETAL: Shoulder pain as before VIDEO EXAM: (if completed, performed via video enabled technology) The patient was oriented, alert, with good memory. Speech was appropriate. GENERAL: alert and appropriate, in no distress, well-hydrated, well nourished and happy, smiling, interactive PHYSICAL EXAMINATION: Total time in direct patient contact = 20 min. Greater than 50% of the time was spent in counseling and/or coordination of care. This Team Access Model visit is a virtual encounter. It required patient-provider interaction for the medical decision making as documented below. Add Assessment/Plan ASSESSMENT/PLAN: 1. Hypertension, essential - ICD9: 401.9, ICD10: I10 (primary diagnosis) - suboptimal control - Increase amlodipine (Norvasc) from 5 to 10mg daily - Recommended regular aerobic exercise. - Recommend home blood pressure monitoring, to bring results in on next visit - Goal of BP <130/80 - AMLODIPINE 10 MG TABLET Follow up in person in 2 wks. 2. Hot flashes - ICD9: 782.62, ICD10: R23.2 - Improved. Continue Celexa. 3. Essential tremor - ICD9: 333.1, ICD10: G25.0 - Improved. Continue Primidone. Betty Bueno MD documented in this encounter [facility] 08-28-2021 Nurse Note Bilateral ear(s) flushed with warm water. small amount of cerumen removed. Patient denies any pain post irrigation and tolerated procedure well. TM appears in tack post flushing with no bleeding in canals. Ordering provider notified when procedure was done to recheck. Carmen Segovia LPN documented in this encounter [facility] 08-28-2021 History of Present illness Narrative Subjective HPI Patient is a 76yo AA W w/ h/o HTN, DMII, chronic pain, presenting for follow up. Last visit: DMII, HTN were well controlled. Continued meds. Mentioned loose stools: Started on Metamucil. Chest pain: did Yue: neg for inducible ischemia, no scarring. Small and hyperdynamic LV and RV. EF- 77% Pleural effusions: CXR- small, improving pleural effusions. Hot flashes: plan to decrease estradiol then stop. Today she reports: Saw Arthritis at [facility]. Should be getting notes. Arthritis is waking her out at night. Brought disc of imaging with her. Patient informed doctor [facility] Hospital that she wanted to keep all of her care in the [facility] system. Patient was referred to Dr. Telles @ [facility]. Pt requesting an official referral to see Dr. Telles. Shingrix: received @ [facility] in [place]: nursing. Ear problems: usually has them cleaned in [place] yearly. Having some itching in ears. Thinks they need to be cleaned. HTN: HTN (Lozol/thiazide diuretic, Norvsac 5, doxazosin 4 :)- No CP. +SOB (w/ walking some times or bending over). Sometimes a little wheezing. No FAIRCHILD. Asthma- Uses her albuterol inhaler 2-3 x/wk. Not at night. Using Breo daily. Using albuterol appropriately for SOB. Helps. Asthma control (Singulair, Breo, Albuterol) DMII (Crestor 10): Sugars: 117 yesterday fasting. (90s-120s) Hemoglobin A1C (POCT) (%) Date Value 08/28/2021 7.1 02/13/2021 6.2 No polyuria/-dipsia/-phagia CP: resolved Stools better. Not taking Metamucil Also mentions feeling shaky in R arm. R>L. Think's it's getting worse. No weakness Hot flashes: Has been off Estrace since 03 of August. Having hot flashes several times daily. B12 (low last yr KCl Valtrex (HSV2) Mg- dc Fish oil Calcium D3 (DEXA last yr- bone density nl) Pain: (gabapentin)- Review of Systems Constitutional: Negative for fever. HENT: Itching in ears Respiratory: Positive for shortness of breath. Negative for cough and wheezing. Cardiovascular: Negative for chest pain and leg swelling. Gastrointestinal: Negative for abdominal pain, constipation, diarrhea, nausea and vomiting. Musculoskeletal: Positive for joint pain. Neurological: Positive for tremors. Negative for headaches. Endo/Heme/Allergies: Hot flashes BP 155/70 Pulse 63 Temp 36.4 C (97.5 F) (Temporal) Resp 16 Ht 5' (1.524 m) SpO2 100% BMI 29.69 kg/m Objective Physical Exam Vitals and nursing note reviewed. HENT: Head: Normocephalic and atraumatic. Right Ear: Tympanic membrane and external ear normal. There is impacted cerumen. Left Ear: Tympanic membrane and external ear normal. There is impacted cerumen. Nose: Nose normal. Mouth/Throat: Pharynx: No oropharyngeal exudate. Eyes: General: No scleral icterus. Conjunctiva/sclera: Conjunctivae normal. Pupils: Pupils are equal, round, and reactive to light. Cardiovascular: Rate and Rhythm: Normal rate and regular rhythm. Heart sounds: Normal heart sounds. No murmur heard. No friction rub. No gallop. Pulmonary: Effort: Pulmonary effort is normal. No respiratory distress. Breath sounds: Normal breath sounds. No wheezing or rales. Abdominal: General: Bowel sounds are normal. There is no distension. Palpations: Abdomen is soft. Tenderness: There is no abdominal tenderness. There is no guarding or rebound. Musculoskeletal: General: No deformity. Normal range of motion. Comments: Limited flexion L shoulder (110 deg), pain. Ok lift off. nl contour nl strength. Skin: General: Skin is warm and dry. Coloration: Skin is not pale. Findings: No erythema or rash. Neurological: Mental Status: She is alert. Gait: Gait normal. Comments: Mild tremor of R>LUE at rest and with intention, seems to be precipitated by muscle activation of arm(s) Psychiatric: Mood and Affect: Mood and affect normal. ASSESSMENT/PLAN: 1. Type 2 diabetes mellitus with peripheral neuropathy (HCC) - ICD9: 250.60, 357.2, ICD10: E11.42 (primary diagnosis) Controlled. - Continue current medications - HGBA1C B/O 2. Chronic left shoulder pain - ICD9: 719.41, 338.29, ICD10: M25.512, G89.29 - CONSULT TO ORTHOPAEDICS 3. Hot flashes - ICD9: 782.62, ICD10: R23.2 - Off Estrogen - CITALOPRAM 20 MG TABLET 4. Hypertension, essential - ICD9: 401.9, ICD10: I10 - suboptimal control - Increase Lozol - Encouraged dietary sodium restriction/DASH diet - Recommended regular aerobic exercise. - Recommend home blood pressure monitoring, to bring results in on next visit - Goal of BP <130/80 - BASIC METABOLIC PNL - INDAPAMIDE 2.5 MG TABLET (up from 1.25mg daily) 5. Hyperlipidemia, mixed - ICD9: 272.2, ICD10: E78.2 - to be determined upon return of lab results - Continue current medication. - LIPID PANEL BASIC 6. Vitamin B12 deficiency - ICD9: 266.2, ICD10: E53.8 - VITAMIN B12 BLOOD 7. Essential tremor - ICD9: 333.1, ICD10: G25.0 - PRIMIDONE 50 MG TABLET 8. 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 Was Patient Referred to [facility]/Seek Emergency Treatment (Y/N): n/a Did Patient Agree (Y/N): n/a Was An Attempt Made To Transfer The Patient To The Office (Y/N): n/a Were You Able To Reach Someone At The Office (Y/N): n/a If Yes - Patient Was Transferred To (Caregivers Name): n/a If No - Which [employer] [facility] [employer] [employer] [employer] [place] Did You Speak With Regarding This Patient: n/a Was an appointment scheduled (Y/N): Y- rescheduled provider unavailable Reason patient was requesting visit (RFV/signs and symptoms/diagnosis) : follow up med refill Person calling if other than patient: n/a Return call to if other than patient: n/a Best contact number: [phone] Thank you, Liliana Camacho August 21, 2021 9:02 AM documented in this encounter [facility] 07-16-2021 History of Present illness Narrative RADIOLOGY SERVICE PROGRESS NOTE SERVICE DATE: 07/16/2021 SERVICE TIME: 10:43 AM PATIENT IDENTITY VERIFICATION COMPLETED USING TWO (2) STANDARD IDENTIFIERS: Name and Date of confirmed by patient verbally FALL SCREENING: Has the patient had 2 falls in the last year or 1 fall with injury or currently using an Ambulatory Assistive Device (Walker, Cane, Wheelchair, Crutches, etc.)? No PATIENT GENDER DATA: .female : No ALLERGIES: Reviewed and unchanged MEDICATIONS REVIEWED: Not applicable PATIENT RELEVANT IMPLANT DATA REVIEWED: Not Applicable CREATININE: Creatinine Date Value Ref Range Status 03/31/2021 0.92 0.58 - 0.96 mg/dL Final 02/13/2021 0.87 0.58 - 0.96 mg/dL Final 11/06/2020 0.79 0.58 - 0.96 mg/dL Final eGFR-All Other Races Date Value Ref Range Status 03/31/2021 59 Final Comment: eGFR (Estimated GFR) Units of measure: mL/min/1.73 meters squared eGFR is derived from the reexpressed MDRD Study equation using the following parameters: serum creatinine, age, gender and race. The creatinine assay has been calibrated to be traceable to IDMS. An eGFR <60 mL/min/1.73m2 for >3 months is consistent with chronic kidney disease. Refer to KDOQI guidelines for clinical interpretation. In patients with unstable renal function, e.g. those with acute kidney injury, the eGFR may not accurately reflect actual GFR. eGFR- Date Value Ref Range Status 03/31/2021 >60 Final P.O.C.T. RESULTS: N/A July 16, [address] PERFORMED: No IV SITE: Ambulatory: A peripheral IV was started in the Right forearm with a Angio cath: 22 gauge. POST EXAM PIV STATUS: Discontinued PROCEDURE TYPE: NM Stress: 12.6mCi [id number] was administered IV for Rest Imaging at 905 by ty. 35.8 mCi [id number] was administered IV for Stress Imaging at 1040 by ty. ADMINISTRATION TIME: 905 PATIENT DISCHARGED TO: Ambulatory patient, left [place] department area. A Diagnostic radioactive procedure has taken place, with no further precautions necessary other than routine body substance precautions. More information regarding radiation safety can be found using this link: [email or web address] SIGNATURE: RT Gloria(R) PATIENT NAME: Akila De Los Santos DATE: July 16, 2021 TIME: 10:43 AM PAGER/CONTACT #: documented in this encounter [facility] 07-16-2021 Nurse Note Yannao #22 Right AC. Lexiscan Nuclear Stress Test Explained And Questions Answered Prior To Testing. Hepwell D/C'ed Post Test. documented in this encounter [facility] 06-26-2021 History of Present illness Narrative Review of Systems Constitutional: Negative for activity change, chills, fever and unexpected weight change. Gastrointestinal: Negative for bowel retention or incontinence Genitourinary: Negative for difficulty urinating. Negative for bladder retention or incontinence Musculoskeletal: Positive for arthralgias, back pain, gait problem, joint swelling and myalgias. Negative for neck pain and neck stiffness. Neurological: Positive for weakness. Negative for numbness and headaches. Psychiatric/Behavioral: Positive for sleep disturbance. Negative for dysphoric mood and suicidal ideas. The patient is not nervous/anxious. [facility] Sharri General Name: Akila De Los Santos : 1945 Purpose: Follow-up Date: 06/26/2021 Last visit Date 04/30/2021 Interval History: Akila De Los Santos reports that her low back pain is still improved since last encounter. She attributes it to the wet weather. As before, she is having some right foot dysesthesias in the base of the foot, but no radicular symptoms down the limbs. She had bilateral SI joint injections on 04/07/2021, still reports 90% relief of pain on the right, left side occasionally hurting. Continues taking and tolerating Neurontin 400mg TID and Tramadol 50mg PRN basis. Still taking Tramadol significantly less since the injection. She reports periodic tremors in both hands. She reports that she had an Electrodiagnostic Study more than 15 years ago in the upper limbs, does not recall the results, is not interested in seeing Neurology. Current Status: INTAKE PAIN ASSESSMENT 05/18/2021 06/26/2021 Are you having pain associated with your visit today? 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) - - Pain: Timing: not constant, but has every day Character: Pins and [place], Sharp and Aching Primary location: axial low back Radiation: right lower limb, posterior limb to the foot; occasionally left knee region Exacerbated factors: Prolonged standing and walking; sitting Alleviating factors: Changing positions Medications requiring refills today: Tramadol 50mg Date last filled: 06/23/2021 Quantity filled: 45 How many left: 43 Time most recent dose taken: 2am today Non-Opioid Medications requiring refills today: o Tylenol Arthritis (OTC) o Neurontin 400mg TID Compliance: Safety Checklist: Are you taking proper precautions to safe guard your medication? Yes Taking the medications as prescribed? Yes Getting pain medications from another physician? No Obtaining pain medication from another source? No Sharing medications with friends/family? No Quality of life improved as a result of taking these medications? Yes Any side effect with this medication? No Justification for Continued Opioid Care: Adequate analgesia? Yes Aberrant drug seeking behavior? No Adverse reactions? No Medications improve quality of life? Yes Function: Weekly Activity Level (0=none; 49=406+ minutes of total activity not including work activity): 07/02 (Physician estimate) Ambulation and Activities of Daily Living: With straight cane Device for community ambulation Independent Exercise(s) or Activities: Walking in the park Work participation: Retired Functional Goals: To be able to walk for exercise more frequently Initial HPI: (Obtained on 12/19/2020) Consult. Akila De Los Santos is a 75 year old year-old female, who presents with the following chief complaint(s): low back pain. Symptoms were first noted many years ago. The onset of symptoms was not sudden and was without associated trauma. Treatments prior to initial presentation include the following: Medications (See below), Injections (See below), Surgery (See below), Modalities (eg. Heat, Ice), Physical Therapy , Home Exercise Program and Activity Modification. She has a history of scoliosis, ultimately resulting in 3 low back surgeries, most recent in 2004, with hardware. She has continued to have sciatica pain, which has been managed by Dr. Ramírez in [place] for pain management with medications and injections. She just moved to [place] and is looking to establish a pain doctor in the region. She has had three lumbar epidural steroid injections, most recently October 17, 90% relief, typically lasting 2-3 months. Also has neuropathy and low back arthritis. Compliance: PDMP website checked and validated. All prescriptions have been APPROPRIATELY filled. No suspicious activity was identified. by Bekah Cintron MD 06/26/2021 Last UDS: 01/2021 - appropriate (positive Tramadol and Gabapentin) Pain Medications Taken to Date (for the chief complaint(s)): Membrane Stabilizers: Neurontin (Gabapentin) NSAIDS: none Opioids: Tramadol Muscle Relaxants: none Topicals: Voltaren Gel, Aspercreme - helps Other Prescription or OTC Pain Medications: none Non-Pain Meds of Note: None Allergies: ALLERGIES Allergen Reactions Aspirin Shortness of Breath Lisinopril Swelling Latex Rash Penicillins Hives, Rash Sulfamethoxazole Hives Current Medications, Past Medical History, Past Surgical History, Family History & Social History: Reviewed on today's date, noted in the attribution Outside Records: [place] [facility], reviewed 01/30/2021: 08/2020 - Right Hip injection (80% reduced) - relief lasted 4 months 05/2020 - Bilateral SI joint injection (95% reduced pain) - relief lasted 6 months Review of Systems: Reviewed on today's date, noted in the attribution Pertinent Positives: MSK - pain in the region being treated Neuro: weakness or numbness in the region being treated Skin: Negative (No itching) Eyes: Negative (No blurred or double vision) Respiratory: Negative (No Cough, Aarknwrsd-te-niczns, Dyspnea on exertion, wheezing) Cardiovascular: Negative (No Chest Pain, Tightness, Pressure, Palpitations) Gastrointestinal: Negative (No Abdominal pain, Nausea, Vomiting, Constipation, Diarrhea) Genitourinary: Negative (No dysuria) Hematologic: Negative (No bleeding, bruising) OB: is Denied or Not Applicable Endocrine: Negative (No hot/cold intolerance) Psychiatric: Negative (No depression, anxiety or suicidal ideation) Diagnostic Studies: Reviewed Personally on today's date, noted in the attribution MRI Spine Report No resulted procedures found. MRI Lumbar spine 09/2019 ([facility] - reviewed 06/26/2021 ): Neural Foraminal Stenosis: None Central Canal Stenosis: Ehof-yh-yqlwlzac at L4-5 Facet-Arthropathy: L1-2, L3-4, L4-5 Disc Protrusion/Bulge: Disc height Loss L1-2, Vertebrae: Minor irregularities inferior end plate T10, Schmorl's note superior L2 end plate with type 1 Modic changes Hardware: Metallic screws left L2 - S1, right L5-S1, Disc implant at L3-4 Alignment: Mild anterolisthesis L4-5 Other: L5 laminectomy DATE PROCEDURE IMPROVEMENT 04/07/2021 Bilat SI Joint 90% (06/26/2021 ) Physical Exam: 06/26/21 1346 Pulse: 61 Resp: 20 SpO2: 99% Constitutional:overweight Eyes: Conjunctiva clear. No discharge from eyes Cardiovascular: Appears well perfused Lymphatic: No visible regional lymphadenopathy Skin: No visible rashes or ecchymosis Psychiatric: Full affect, Alert, Pleasant Neuro-Lower: Neural Tension Signs: ? Negative slump in Bilateral lower limbs Sensation: ? intact to light touch in the L2-S2 Bilateral lower limb dermatomes Muscle Tone: ? Normal and symmetric throughout without clonus Strength: ? Iliopsoas (L2): 5 Left, 5 Right ? Quadriceps (L3) 5 Left, 5 Right ? Anterior Tibialis (L4): 5 Left, 5 Right ? Extensor Hallucis Longus (L5): 5 Left, 5 Right ? Gastrocnemius (S1): 5 Left, 5 Right Reflexes: ? Decreased 1+ and symmetric Patellar, Achilles ? Downgoing plantar responses (negative Babinski) bilaterally Musculoskeletal-Lower: Inspection: ? Symmetric without atrophy Palpation: ? Lumbar Paraspinal Tenderness: None on Bilateral side(s) ? Paraspinal Spasms: None ? PSIS Tenderness: None on Bilateral side(s) ? Greater Trochanter Tenderness: None on Bilateral side(s) Spine Range of Motion: ? Flexion: Decreased 25% Without end range pain ? Extension: Decreased 25% Without end range pain ? Combination extension and rotation pain: None Hip Range of Motion: ? Right Hip: ? Internal Rotation: Normal; Pain at end range: None ? External Rotation: Normal; Pain at end range: None ? Left Hip: ? Internal Rotation: Normal; Pain at end range: None ? External Rotation: Normal; Pain at end range: None Sacroiliac Maneuvers: Deferred Diagnoses: (M46.1) Sacroiliitis (HCC) (primary encounter diagnosis) (M96.1) Post laminectomy syndrome (M54.16) Lumbar radiculopathy (M47.816) Lumbar spondylosis (Z79.891) Encounter for long-term use of opiate analgesic Impression: 76 year old female with significant past medical history for low back decompressive surgeries x 3, scoliosis, who presents with complaint(s) of ongoing axial low back pain, right lower limb radicular symptoms. Has been established with pain management in [place], just moved to [place]. Stable on very low doses of medication. Good relief of pain following SI Joint injections. Plan: Akila De Los Santos would benefit from the following to reach personal goals for decreasing pain, improving function and work participation, and/or improving quality of life: Medication(s): Tramadol 50mg, disp #45, 1 refill OIC: The opioid informed consent was reviewed and signed by the patient and a copy was offered (01/2021) Neurontin: increase from 400mg TID to 400/400/800 (and then 800/400/800 if needed after 2 weeks) Additional Studies: None Referrals: No additional considerations at present Functional Restorationism: Home Exercise Program: Prescribed on 12/19/2020 for the lumbar region(s) Range of motion exercises and Stretches To be performed at least 3 times per week under this Physician's supervision Depending on response to the above-mentioned plan of care, in the future may consider evaluation for: Repeat SI Joint injection; Switch to Lyrica; SI Joint RFA (prefers to avoid RFA at this time) -Follow-up: 2 months Attribution: In addition to reviewing the information noted above, some elements copied from my most recent clinical note(s), including the physical exam (completed in entirety today), and the impression and plan sections, have been updated where appropriate. All reflect current medical decision making from today's date. Bekah Cintron MD, MBA Pain Management [facility] documented in this encounter [facility] 06-23-2021 Miscellaneous Notes Patient informed rx was sent to pharmacy. Ivania Caro MA PDMP reviewed, Tramadol last filled in early March as reported by patient. Sent new script to Pharmacy - next script was for June 25, but since did not fill Apr, can fill right away. Bekah Cintron III, MD, MBA Patient left voicemail that her script was sent to [facility] for tramadol and she didn't need it so she did not pick it up last time. Now she needs it and wants to know if you can please send into her pharmacy a script for the tramadol. Please advise Teagan Hernandez documented in this encounter [facility] 05-18-2021 History of Present illness Narrative Akila Ledy [birth year] CC: HPI: 1) heart xray results 2) arthritis - waking up at night - takes tylenol max strength a day, also takes tramadol - got worse in past couple of months with weather - PM with back - L arm, hands, feet, and knees b/l - exercising makes it better, worse sometimes, got a first aid trainer 3) bowels - sporadic, every time eat has to have a bowel movement immediately wth [place]. Other foods about 30 min after. Soft stool. Mostly dairy products. No pain. No blood in your stool. No dark stools. Last colonoscopy 2016. Dx with IBS and diverticulitis. Eats veggies, fruits, smoothies. Coffee and raisins every morning. Diabetic Foot Exam - had it last week with table games dealer in [place] Shingrix Vaccine - said she got her 2nd shingrix vaccine 05/30/2019, 08/23/2019 Sugars - when do you take those: fasting 97 (89-127) doxzosin dosing 2mg bid, isabel is shipping a 4mg Mg chloride and zinc ? Still take? End of life care - POA: - DNR -will: nothing changed Subjective The history is provided by the patient. Diabetes She presents for her follow-up diabetic visit. She has type 2 diabetes mellitus. There are no hypoglycemic associated symptoms. Associated symptoms include fatigue. Pertinent negatives for diabetes include no blurred vision, no chest pain, no foot paresthesias, no foot ulcerations, no polydipsia, no polyphagia, no polyuria, no visual change, no weakness and no weight loss. Hypertension Pertinent negatives include no blurred vision or chest pain. Patient is a 76yo AA W w/ h/o asthma, OA, TIA, HTN, HLD, DMII, chronic pain (LB; DJD), PAD, presenting for follow up. Last visit: Did A1c- controlled (see below). Ordered urine microalbumin- nl Did TSH 2/2 complaint of fatigue: nl. CBC NL. 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 Continued on Statin, KCl. Since last visit, was seen in ED for SOB and CP. There was low suspicion for anything ominous so patient got CXR and labs and was d/c'ed home. (Trops neg x 2, CBC, CMP grossly nl, BNP- nl; small bilateral pleural effusions noted on CXR). Followed up w/ another provider. ECHO ordered and done. Grossly nl; grade I diastolic dysfxn. EF- 62%. No valvular abnormalities. BGT- 89-110s Hemoglobin A1C (POCT) (%) Date Value 02/13/2021 6.2 HTN- BP @ home: 145-155/70s Outpt stress? CP?- Had pain in L chest. Kept getting worse. Hasn't had any more since ED. Estrace: hot flashes were horrible when d/c'ed several years ago. Discussed potential side effects and increased risk of CVA, LA especially in setting of prior TIA. Recommended weaning off. Discussed other options such as SSRIs or intravaginal estrogen to tx sxs if they ensue after d/c'ing. Pt in agreement. Bowels: Sometimes, things she eats give her a blow out right away. Thought it was mayonnaise. Always has BM w/in 1/2 hr of eating. Ice cream and milk seem to be linked to sxs. Used to use lactaid. Stools aren't firm. Soft. No anxiety. Has been dx'ed w/ irritable bowel syndrome. Diverticulitis in past. Review of Systems Constitutional: Positive for fatigue. Negative for weight loss. Eyes: Negative for blurred vision. Cardiovascular: Negative for chest pain. Neurological: Negative for weakness. Endo/Heme/Allergies: Negative for polydipsia and polyphagia. BP 118/72 Pulse 91 Temp 36.4 C (97.6 F) Ht 5' (1.524 m) Wt 152 lb (68.9 kg) BMI 29.69 kg/m Objective Physical Exam Vitals and nursing note reviewed. HENT: Head: Normocephalic and atraumatic. Right Ear: External ear normal. Left Ear: External ear normal. Nose: Nose normal. Mouth/Throat: Pharynx: No oropharyngeal exudate. Eyes: General: No scleral icterus. Conjunctiva/sclera: Conjunctivae normal. Pupils: Pupils are equal, round, and reactive to light. Cardiovascular: Rate and Rhythm: Normal rate and regular rhythm. Heart sounds: Normal heart sounds. No murmur heard. No friction rub. No gallop. Pulmonary: Effort: Pulmonary effort is normal. No respiratory distress. Breath sounds: Normal breath sounds. No wheezing or rales. Abdominal: General: Bowel sounds are normal. There is no distension. Palpations: Abdomen is soft. Tenderness: There is no abdominal tenderness. There is no guarding or rebound. Musculoskeletal: General: No tenderness or deformity. Normal range of motion. Skin: General: Skin is warm and dry. Coloration: Skin is not pale. Findings: No erythema or rash. Neurological: Mental Status: She is alert. Psychiatric: Mood and Affect: Affect normal. Reports recently had DM foot exam performed by table games dealer. ASSESSMENT/PLAN: 1. Other chest pain - ICD9: 786.59, ICD10: R07.89 (primary diagnosis) Chest pain of unclear etiology, patient with significant risk factor(s) of Diabetes Mellitus, Hypertension and Hyperlipidemia - NM CARDIAC PERF STRESS/PHARM 2. Chronic bilateral pleural effusions - ICD9: 511.9, ICD10: J90 - XR CHEST 2V FRONTAL/LAT 3. Loose stools - ICD9: 787.7, ICD10: R19.5 - METAMUCIL (SUGAR) ORAL POWDER 4. Type 2 diabetes mellitus with peripheral neuropathy (HCC) - ICD9: 250.60, 357.2, ICD10: E11.42 Controlled. - Continue current medications 5. Hypertension, essential - ICD9: 401.9, ICD10: I10 - good control - Continue current medication(s) - Encouraged dietary sodium restriction/DASH diet - Recommended regular aerobic exercise. - Recommend home blood pressure monitoring, to bring results in on next visit - Goal of BP <130/80 6. Hot flashes - ICD9: 782.62, ICD10: R23.2 - Decrease to 0.5 x 1 mo then stop. - ESTRADIOL 1 MG TABLET - Can try venlafaxine if sxs return. Betty Bueno MD documented in this encounter [facility] 04-30-2021 History of Present illness Narrative Review of Systems Constitutional: Negative for activity change, chills, fever and unexpected weight change. Gastrointestinal: Negative for bowel retention or incontinence Genitourinary: Negative for difficulty urinating. Negative for bladder retention or incontinence Musculoskeletal: Positive for back pain, gait problem and joint swelling. Negative for arthralgias, myalgias, neck pain and neck stiffness. Neurological: Negative for weakness, numbness and headaches. Psychiatric/Behavioral: Negative for dysphoric mood, sleep disturbance and suicidal ideas. The patient is not nervous/anxious. [facility] Shar[facility] General Name: Akila De Los Santos : 1945 Purpose: Follow-up Date: 04/30/2021 Last visit Date 01/30/2021 Interval History: Akila De Los Santos reports that her low back pain is improved since last encounter. She attributes it to the wet weather. She is having some right foot dysesthesias in the base of the foot, but no radicular symptoms down the limbs. She had bilateral SI joint injections on 04/07/2021, reports 90% relief of pain. Continues taking and tolerating Neurontin 400mg TID and Tramadol 50mg PRN basis. Has taken Tramadol significantly less since the injection. Current Status: INTAKE PAIN ASSESSMENT 04/08/2021 04/30/2021 Are you having pain associated with your visit today? 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) - - Pain: Timing: not constant, but has every day Character: Pins and [place], Sharp and Aching Primary location: axial low back Radiation: right lower limb, posterior limb to the foot; occasionally left knee region Current pain level on NRS: 2/10 Exacerbated factors: Prolonged standing and walking; sitting Alleviating factors: Changing positions Medications requiring refills today: Tramadol 50mg Date last filled: 03/31/2021 Quantity filled: 45 How many left: 36 Time most recent dose taken: Two days ago Non-Opioid Medications requiring refills today: o Tylenol Arthritis (OTC) o Neurontin 400mg TID Compliance: Safety Checklist: Are you taking proper precautions to safe guard your medication? Yes Taking the medications as prescribed? Yes Getting pain medications from another physician? No Obtaining pain medication from another source? No Sharing medications with friends/family? No Quality of life improved as a result of taking these medications? Yes Any side effect with this medication? No Justification for Continued Opioid Care: Adequate analgesia? Yes Aberrant drug seeking behavior? No Adverse reactions? No Medications improve quality of life? Yes Function: Weekly Activity Level (0=none; 60=225+ minutes of total activity not including work activity): 07/02 (Physician estimate) Ambulation and Activities of Daily Living: With straight cane Device for community ambulation Independent Exercise(s) or Activities: Walking in the park Work participation: Retired Functional Goals: To be able to walk for exercise more frequently Initial HPI: (Obtained on 12/19/2020) Consult. Akila De Los Santos is a 75 year old year-old female, who presents with the following chief complaint(s): low back pain. Symptoms were first noted many years ago. The onset of symptoms was not sudden and was without associated trauma. Treatments prior to initial presentation include the following: Medications (See below), Injections (See below), Surgery (See below), Modalities (eg. Heat, Ice), Physical Therapy , Home Exercise Program and Activity Modification. She has a history of scoliosis, ultimately resulting in 3 low back surgeries, most recent in 2004, with hardware. She has continued to have sciatica pain, which has been managed by Dr. Ramírez in [place] for pain management with medications and injections. She just moved to [place] and is looking to establish a pain doctor in the region. She has had three lumbar epidural steroid injections, most recently October 17, 90% relief, typically lasting 2-3 months. Also has neuropathy and low back arthritis. Compliance: PDMP website checked and validated. All prescriptions have been APPROPRIATELY filled. No suspicious activity was identified. by Bekah Cintron MD 04/30/2021 Last UDS: 01/2021 - appropriate (positive Tramadol and Gabapentin) Pain Medications Taken to Date (for the chief complaint(s)): Membrane Stabilizers: Neurontin (Gabapentin) NSAIDS: none Opioids: Tramadol Muscle Relaxants: none Topicals: Voltaren Gel, Aspercreme - helps Other Prescription or OTC Pain Medications: none Non-Pain Meds of Note: None Allergies: ALLERGIES Allergen Reactions Aspirin Shortness of Breath Lisinopril Swelling Latex Rash Penicillins Hives, Rash Sulfamethoxazole Hives Current Medications, Past Medical History, Past Surgical History, Family History & Social History: Reviewed on today's date, noted in the attribution Outside Records: [place] [facility], reviewed 01/30/2021: 08/2020 - Right Hip injection (80% reduced) - relief lasted 4 months 05/2020 - Bilateral SI joint injection (95% reduced pain) - relief lasted 6 months Review of Systems: Reviewed on today's date, noted in the attribution Pertinent Positives: MSK - pain in the region being treated Neuro: weakness or numbness in the region being treated Skin: Negative (No itching) Eyes: Negative (No blurred or double vision) Respiratory: Negative (No Cough, [id number], Dyspnea on exertion, wheezing) Cardiovascular: Negative (No Chest Pain, Tightness, Pressure, Palpitations) Gastrointestinal: Negative (No Abdominal pain, Nausea, Vomiting, Constipation, Diarrhea) Genitourinary: Negative (No dysuria) Hematologic: Negative (No bleeding, bruising) OB: is Denied or Not Applicable Endocrine: Negative (No hot/cold intolerance) Psychiatric: Negative (No depression, anxiety or suicidal ideation) Diagnostic Studies: Reviewed Personally on today's date, noted in the attribution MRI Spine Report No resulted procedures found. DATE PROCEDURE IMPROVEMENT 04/07/2021 Bilat SI Joint 90% (04/30/2021 ) Physical Exam: 04/30/21 1245 Pulse: 65 Resp: 20 SpO2: 99% Constitutional:overweight Eyes: Conjunctiva clear. No discharge from eyes Cardiovascular: Appears well perfused Lymphatic: No visible regional lymphadenopathy Skin: No visible rashes or ecchymosis Psychiatric: Full affect, Alert, Pleasant (From 01/2021) Neuro-Lower: Neural Tension Signs: ? Negative slump in Bilateral lower limbs Sensation: ? intact to light touch in the L2-S2 Bilateral lower limb dermatomes Muscle Tone: ? Normal and symmetric throughout without clonus Strength: ? Iliopsoas (L2): 5 Left, 5 Right ? Quadriceps (L3) 5 Left, 5 Right ? Anterior Tibialis (L4): 5 Left, 5 Right ? Extensor Hallucis Longus (L5): 5 Left, 5 Right ? Gastrocnemius (S1): 5 Left, 5 Right Reflexes: ? Decreased 1+ and symmetric Patellar, Achilles ? Downgoing plantar responses (negative Babinski) bilaterally Musculoskeletal-Lower: Inspection: ? Symmetric without atrophy Palpation: ? Lumbar Paraspinal Tenderness: None on Bilateral side(s) ? Paraspinal Spasms: None ? PSIS Tenderness: None on Bilateral side(s) ? Greater Trochanter Tenderness: None on Bilateral side(s) Spine Range of Motion: ? Flexion: Decreased 25% Without end range pain ? Extension: Decreased 25% Without end range pain ? Combination extension and rotation pain: None Hip Range of Motion: ? Right Hip: ? Internal Rotation: Normal; Pain at end range: None ? External Rotation: Normal; Pain at end range: None ? Left Hip: ? Internal Rotation: Normal; Pain at end range: None ? External Rotation: Normal; Pain at end range: None Sacroiliac Maneuvers: Deferred Diagnoses: (M46.1) Sacroiliitis (HCC) (primary encounter diagnosis) (M54.16) Lumbar radiculopathy (M96.1) Post laminectomy syndrome (M47.816) Lumbar spondylosis Impression: 76 year old female with significant past medical history for low back decompressive surgeries x 3, scoliosis, who presents with complaint(s) of ongoing axial low back pain, right lower limb radicular symptoms. Has been established with pain management in [place], just moved to [place]. Stable on very low doses of medication. Good relief of pain following SI Joint injections. Plan: Akila De Los Santos would benefit from the following to reach personal goals for decreasing pain, improving function and work participation, and/or improving quality of life: Medication(s): Tramadol 50mg, disp #45, 1 refill OIC: The opioid informed consent was reviewed and signed by the patient and a copy was offered (01/2021) Neurontin 400mg TID - continue Additional Studies: MRI information - will have patient sign release of records for lumbar MRI (which were not included in outside records received 10/2020) Referrals: No additional considerations at present Functional Restorationism: Home Exercise Program: Prescribed on 12/19/2020 for the lumbar region(s) Range of motion exercises and Stretches To be performed at least 3 times per week under this Physician's supervision Depending on response to the above-mentioned plan of care, in the future may consider evaluation for: Epidural; Increase Neurontin -Follow-up: 2 months Attribution: In addition to reviewing the information noted above, some elements copied from my most recent clinical note(s), including the physical exam (completed in entirety today), and the impression and plan sections, have been updated where appropriate. All reflect current medical decision making from today's date. Bekah Cintron MD, [facility] documented in this encounter [facility] 04-09-2021 History of Present illness Narrative HPI Patient is a 76 year old year old female pmh HTN, HLD, COPD is presenting today with a chief complaint of ER F/U for Chest Pain. ED Visit 04/01/21 Patient directed to follow-up with her primary care provider for a likely echocardiogram given her pleural effusions with a normal BNP and unremarkable cardiac markers. Low suspicion for any acute emergent pathology at this point in time. Patient is not also endorsing some radicular symptoms in the left shoulder which she has arthritis and is already taken extra strength Tylenol. The attending felt that the patient would benefit from a Medrol Dosepak. Patient discharged home to follow-up on an outpatient basis with Dr. Bueno. Chest Pain follow-up Pt states she is chest pain free and has no acute concerns today Pain previously started in Left Breast Radiated down her arm + SOB S/p Cardiac assessment which was unremarkable Improved with Outpatient Steroids EKG SINUS RHYTHM WITH OCCASIONAL PREMATURE VENTRICULAR COMPLEXES POSSIBLE LEFT ATRIAL ENLARGEMENT a1c 6.2, diet ctrld T2DM S/p Back injections yesterday, msk back pain is improving She has been working out with a first aid trainer and defers PT at this time Health maintenance DILATED RETINAL EXAM Never done DIABETIC FOOT EXAM Never done SHINGRIX VACCINE(2 of 3) due on 07/21/2016 Subjective Review of Systems as per hpi, otherwise negative to all Allergies Aspirin, Lisinopril, Latex, Penicillins, and Sulfamethoxazole Home Medications rosuvastatin (CRESTOR) 10 mg tablet Take 1 tablet by mouth daily at bedtime. Cyanocobalamin 1,000 mcg TbER Take 1 tablet by mouth once daily. potassium chloride 20 mEq TbER Take 2 tablets by mouth twice daily. albuterol HFA (VENTOLIN HFA) 90 mcg/actuation inhaler Inhale 2 Puffs as instructed every 4 hours as needed for wheezing/shortness of breath. gabapentin (NEURONTIN) 400 mg capsule Take 1 capsule by mouth three times daily for 180 days. valACYclovir (VALTREX) 1 gram Take 1 tablet by mouth once daily. blood sugar diagnostic (ACCU-CHEK KAYCEE PLUS TEST STRP) test strip Use as instructed to check blood sugar once daily as needed. Lancets lancets Use as instructed to check blood sugar once daily as needed doxazosin (CARDURA) 2 mg tablet Take 1 tablet by mouth twice daily. amLODIPine (NORVASC) 5 mg tablet Take 5 mg by mouth once daily. indapamide (LOZOL) 1.25 mg tablet 1.2 mg. estradiol (ESTRACE) 1 mg tablet Take 1 mg by mouth once daily. montelukast (SINGULAIR) 10 mg tablet Rhleb-2-THL-EPA-Fish Oil (FISH OIL) 300-1,000 mg cap Take by mouth. calcium phosphate-vitamin D3 (CITRACAL-D3 GUMMIES) 250 mg-12.5 mcg (500 unit) chew Take by mouth. BREO ELLIPTA 200-25 mcg/dose inhaler magnesium chloride 64 mg magnesium tab Take 1 tablet by mouth once daily for 14 days. Vital Signs BP 130/66 Pulse 78 Temp 36.2 C (97.1 F) Ht 5' (1.524 m) Wt 150 lb (68 kg) BMI 29.29 kg/m Last 3 Encounter BP Readings: Date: BP: 04/08/2021 130/66 04/07/2021 172/62 03/31/2021 154/74 Last 3 Encounter Wt Readings: Date: Wt: 04/08/2021 150 lb (68 kg) 03/31/2021 146 lb (66.2 kg) 02/13/2021 156 lb 6.4 oz (70.9 kg) Physical Exam Physical Exam Vitals reviewed. HENT: Head: Normocephalic and atraumatic. Eyes: General: No scleral icterus. Extraocular Movements: Extraocular movements intact. Pupils: Pupils are equal, round, and reactive to light. Cardiovascular: Rate and Rhythm: Normal rate. Pulses: Normal pulses. Heart sounds: No murmur heard. Pulmonary: Effort: Pulmonary effort is normal. Breath sounds: Normal breath sounds. No wheezing. Abdominal: General: Bowel sounds are normal. Palpations: Abdomen is soft. There is no mass. Tenderness: There is no abdominal tenderness. Musculoskeletal: General: No swelling or tenderness. Normal range of motion. Skin: General: Skin is warm and dry. Capillary Refill: Capillary refill takes less than 2 seconds. Findings: No rash. Neurological: General: No focal deficit present. Gait: Gait normal. Psychiatric: Mood and Affect: Mood normal. Assessment and Plan ASSESSMENT/PLAN: Angina possibly 2/2 msk irritation with her workout routine. Pt has significant CVD risk factors, will obtain ECHO to assess cardiac function. 1. Chest pain, unspecified type - ICD9: 786.50, ICD10: R07.9 (primary diagnosis) - Chest pain of unclear etiology, patient with significant risk factor(s) of Diabetes Mellitus, Hypertension and Hyperlipidemia - Cardiology follow-up encouraged - Will obtain ECHO 2. Dyslipidemia - ICD9: 272.4, ICD10: E78.5 - ROSUVASTATIN 10 MG TABLET 3. Need for vaccination against Streptococcus pneumoniae using pneumococcal conjugate vaccine 7 - ICD9: V03.82, ICD10: Z23 - IMADM THROUGH 18YR ANY ROUTE 1ST VAC/TOXOID - PNEUMOCOCCAL IMMUNIZATION PPSV 23 Rojelio Armenta Plan: Return for follow-up with Dr Bueno as scheduled . Discussed the above plan with the attending. Patient or patient's responsible parent/guardian was in agreement with the plan and verbalized understanding. Part of this note has been created using voice recognition software. It may contain errors which are inherent in voice-recognition technology. Rojelio Armenta MD Family Medicine Residency Program [facility] documented in this encounter [facility] 04-07-2021 History and physical note Dressing dry and intact, no drainage noted. The patient denies numbness, tingling, weakness, shortness of breath, dizziness or headache. Pain level 0/10. Patient given discharge instructions and escorted to transportation via ambulatory method. Patient left in good condition. Cuate Robles LPN documented in this encounter [facility] 04-07-2021 Instructions Cuate Robles LPN - 04/07/2021 11:03 AM EST PROCEDURE DISCHARGE INSTRUCTIONS 04/07/2021 Akila De Los Santos 1945 Physician: Kalin Mae MD Procedure: Shoulder/Knee/Sacroiliac/Hip joint injection Post Procedure Instructions: If sedation not given, no driving for 3 hours after the procedure., Rest the day of the procedure., You may resume normal activities the day after the procedure, as tolerated., Pain should gradually subside over the next 2-3 weeks., Avoid movements that may aggravate pain., Apply cold compresses to injection site if needed., If medically acceptable, take over the counter anti-inflammatories such as ibuprofen or Aleve if needed for post procedure discomfort. and No hot baths, hot tubs or hot compresses for 24 hours. If you have any of the following signs or symptoms, please call our office at Fever and/or chills Swelling and/or drainage from injection site New pain that is different than your normal pain (other than soreness at the site of the procedure) Stiff neck Shortness of breath Severe increase in pain Motor dysfunctions, such as difficulty walking, bowel or bladder dysfunction and/or incontinence Headache that is severe, light sensitive or develops when changing positions (positional headache) Nausea and/or vomiting accompanied by headache that started 24-48 hours after the procedure If you have any emergent concerns, please call 911 or go to your local emergency room. Please also contact our office to let us know you will be seeking emergency care and why. documented in this encounter [facility] 04-07-2021 Nurse Note Procedure to be performed: SACROILIAC JOINT STEROID INJECTION Patient was wheeled on stretcher from pre op bay to procedure room and assisted onto the procedure tablePatient s procedure was performed in an [facility] Procedure room. Pause completed at each level by provider to verify correct level and laterality placement Pressure was applied to patient s injection site(s) and bleeding was minimal. Patient had no complaint of shortness of breath, dizziness, headache, numbness, tingling, weakness or complications from procedure. Patient was assisted from the procedure table onto the stretcher and wheeled into a post op bay. Patient was advised a clinician will be to obtain another set of vitals. Time Out: 1053 Confirmed patient name, date of , procedure site, laterality, and allergies Procedure Start: 1056 Procedure End: 110 [employer] Lead: Tivelly Are you on a blood thinner: N If yes, is a hold required: N Last dose of blood thinner: N INR result today: N Do you require a Lovenox bridge: N Are you a diabetic: Y BS result today: 105 Are you/could you be : N Are you currently on an antibiotic: N Are you currently on a steroid: MethylPrednisolone stopped yesterday, fluid in the lungs was the reason. Have you received a dose of the COVID vaccine in the last 14 days: N Did you bring any medication with you to use before this procedure: N - Cuate Robles LPN documented in this encounter [facility] 04-07-2021 History of Present illness Narrative [facility] HPI Akila De Los Santos is a 76 year old female who presents for bilateral SIJ injection Review of Systems Per nursing documentation PAST MEDICAL HISTORY Diagnosis Date Asthma Diabetes mellitus (HCC) DJD (degenerative joint disease) Osteoarthritis of multiple joints PAD (peripheral artery disease) (HCC) TIA (transient ischemic attack) PAST SURGICAL HISTORY Procedure Laterality Date TOTAL ABDOM HYSTERECTOMY History reviewed. No pertinent family history. Social History Tobacco Use Smoking status: Never Smoker Smokeless tobacco: Never Used Substance Use Topics Alcohol use: Never Drug use: Never Current Outpatient Medications Medication Sig Dispense Refill Cyanocobalamin 1,000 mcg TbER Take 1 tablet by mouth once daily. 90 tablet 0 rosuvastatin (CRESTOR) 10 mg tablet Take 1 tablet by mouth daily at bedtime. 30 tablet 1 potassium chloride 20 mEq TbER Take 2 tablets by mouth twice daily. 360 tablet 4 albuterol HFA (VENTOLIN HFA) 90 mcg/actuation inhaler Inhale 2 Puffs as instructed every 4 hours as needed for wheezing/shortness of breath. 18 g 4 gabapentin (NEURONTIN) 400 mg capsule Take 1 capsule by mouth three times daily for 180 days. 270 capsule 1 valACYclovir (VALTREX) 1 gram Take 1 tablet by mouth once daily. 90 tablet 4 blood sugar diagnostic (ACCU-CHEK KAYCEE PLUS TEST STRP) test strip Use as instructed to check blood sugar once daily as needed. 100 Each 11 Lancets lancets Use as instructed to check blood sugar once daily as needed 100 Each 11 doxazosin (CARDURA) 2 mg tablet Take 1 tablet by mouth twice daily. 180 tablet 1 amLODIPine (NORVASC) 5 mg tablet Take 5 mg by mouth once daily. indapamide (LOZOL) 1.25 mg tablet 1.2 mg. estradiol (ESTRACE) 1 mg tablet Take 1 mg by mouth once daily. montelukast (SINGULAIR) 10 mg tablet Pmsgp-7-JWQ-EPA-Fish Oil (FISH OIL) 300-1,000 mg cap Take by mouth. calcium phosphate-vitamin D3 (CITRACAL-D3 GUMMIES) 250 mg-12.5 mcg (500 unit) chew Take by mouth. BREO ELLIPTA 200-25 mcg/dose inhaler methylPREDNISolone (MEDROL DOSE-PACK) 4 mg Dose-Pack As Instructed per package (Patient not taking: Reported on 04/07/2021 ) 21 tablet 0 magnesium chloride 64 mg magnesium tab Take 1 tablet by mouth once daily for 14 days. 14 tablet 0 No current facility-administered medications for this visit. Attestation Information obtained by others were confirmed and edited as necessary on 04/07/2021 by Kalin Mae MD. Objective Exam: There were no vitals taken for this visit. Constitutional: normal appearance, A&O x3 Head: atraumatic, normocephalic Eyes: conjunctiva clear. Cardiovascular: appears well-perfused Pulmonary: non-labored Abdominal: non-distended Skin: no visible rashes or ecchymosis Psychiatric: mood appropriate Neurological: no focal deficits Assessment and Plan: We discussed their current plan and the pathology responsible for the patient's pain. Specific counseling related to the procedure was provided regarding the risks, benefits and alternatives. The patient wishes to proceed with the plan as follows: No diagnosis found. Time out to confirm patient name, date of , procedure site, laterality, and allergies performed by physician. Please see nursing note for exact times (time out, procedure start, procedure end). [place] protocol documentation / Pre-Procedure checklist: 1. Unless stated otherwise in the procedure note, the risks include but are not limited to infection, allergic reaction, increased pain, lack of therapeutic benefit, steroid reaction, nerve damage, paralysis, stroke, epidural hematoma, syncope, headache, respiratory or cardiac arrest, pneumothorax, and scar formation 2. Time Out was led by the physician in the procedure room, with the patient and all staff present and participating ? The following information was verified: name, date of , procedure site (marked), laterality, anticoagulants and allergies UNIVERSAL PROTOCOL / SAFETY CHECKLIST Sign In: A Moment of CARE was completed. Personnel directly involved with the procedure wore the appropriate PPE (Personal Protective Equipment). Patient/Surrogate Stated/Verified: patient name, date of , relevant allergies and intended procedure Time Out Communication: Intended patient and procedure match the source documents. Consent documented and matches the intended procedure. Sign Out: SIGN OUT (optional for EMERGENT procedures): No specimen collected. Kalin Mae MD [facility] [place] [facility] Subjective HPI Review of Systems Eyes: Negative for blurred vision. Respiratory: Negative for shortness of breath. Cardiovascular: Positive for chest pain. Negative for leg swelling. Gastrointestinal: Negative for constipation, diarrhea, nausea and vomiting. Genitourinary: Negative for dysuria. Skin: Negative for itching. Neurological: Negative for dizziness, tingling, weakness and headaches. Endo/Heme/Allergies: Bruises/bleeds easily. Psychiatric/Behavioral: Negative for depression and suicidal ideas. PAST MEDICAL HISTORY Diagnosis Date Asthma Diabetes mellitus (HCC) DJD (degenerative joint disease) Osteoarthritis of multiple joints PAD (peripheral artery disease) ([facility]) TIA (transient ischemic attack) PAST SURGICAL HISTORY Procedure Laterality Date TOTAL ABDOM HYSTERECTOMY No family history on file. Social History Tobacco Use Smoking status: Never Smoker Smokeless tobacco: Never Used Substance Use Topics Alcohol use: Never Drug use: Never Current Meds methylPREDNISolone (MEDROL DOSE-PACK) 4 mg Dose-Pack As Instructed per package Cyanocobalamin 1,000 mcg TbER Take 1 tablet by mouth once daily. rosuvastatin (CRESTOR) 10 mg tablet Take 1 tablet by mouth daily at bedtime. potassium chloride 20 mEq TbER Take 2 tablets by mouth twice daily. albuterol HFA (VENTOLIN HFA) 90 mcg/actuation inhaler Inhale 2 Puffs as instructed every 4 hours as needed for wheezing/shortness of breath. gabapentin (NEURONTIN) 400 mg capsule Take 1 capsule by mouth three times daily for 180 days. valACYclovir (VALTREX) 1 gram Take 1 tablet by mouth once daily. blood sugar diagnostic (ACCU-CHEK KAYCEE PLUS TEST STRP) test strip Use as instructed to check blood sugar once daily as needed. Lancets lancets Use as instructed to check blood sugar once daily as needed magnesium chloride 64 mg magnesium tab Take 1 tablet by mouth once daily for 14 days. doxazosin (CARDURA) 2 mg tablet Take 1 tablet by mouth twice daily. amLODIPine (NORVASC) 5 mg tablet Take 5 mg by mouth once daily. indapamide (LOZOL) 1.25 mg tablet 1.2 mg. estradiol (ESTRACE) 1 mg tablet Take 1 mg by mouth once daily. montelukast (SINGULAIR) 10 mg tablet Ietyq-6-KHA-EPA-Fish Oil (FISH OIL) 300-1,000 mg cap Take by mouth. calcium phosphate-vitamin D3 (CITRACAL-D3 GUMMIES) 250 mg-12.5 mcg (500 unit) chew Take by mouth. BREO ELLIPTA 200-25 mcg/dose inhaler Objective BP 130/70 Pulse 61 Resp 18 SpO2 100% Physical Exam documented in this encounter [facility] 04-07-2021 Procedure note PROCEDURE: BILATERAL SACROILIAC JOINT INJECTION DIAGNOSIS: Sacroiliitis (hcc) (primary encounter diagnosis) DESCRIPTION OF PROCEDURE: The patient was brought to the [facility] procedure room and placed in the prone position onto the fluoroscopy table. The lumbosacral area was prepped and draped in the usual sterile fashion using Chloroprep and a fenestrated drape. The fluoroscope was brought into the field and an oblique image was obtained to identify the RIGHT sacroiliac joint. The skin overlying the proposed needle entry site was marked. The skin and subcutaneous tissues overlying the proposed needle entry sites were anesthetized with 2 ml of 2% lidocaine. A 25-gauge 3.5-inch spinal needle was placed through the skin and advanced coaxially towards the sacroiliac joint. Correct final needle position was confirmed with visualization of the needle past the posterior border of the sacrum on lateral fluoroscopic imaging. A solution containing a total of 3ml of 0.5% bupivacaine with 20mg of DepoMedrol was made and injected following negative aspiration for heme, CSF, or air. After completion of the injection, the needle were removed. The injection site were cleaned and dried. A sterile dressing was applied. The procedure was repeated on the left sacroiliac joint using the same technique and injectate. The procedure was completed without complications and was tolerated well. The patient was monitored after the procedure. The patient (or responsible constitution party) was given post-procedure and discharge instructions to follow at home. The patient was discharged in stable condition. A follow up appointment was made. Please see the nursing note for exact times (time out, procedure start, procedure end). documented in this encounter [facility] 03-09-2021 Miscellaneous Notes Patient left a message requesting call in regards to her tramadol prescription. I attempted to contact patient. Left a message to return the call. Shay Michael MA documented in this encounter [facility] 02-13-2021 History of Present illness Narrative Subjective The history is provided by the patient. Diabetes She presents for her follow-up diabetic visit. She has type 2 diabetes mellitus. There are no hypoglycemic associated symptoms. Pertinent negatives for hypoglycemia include no headaches or sweats. Associated symptoms include fatigue. Pertinent negatives for diabetes include no blurred vision, no chest pain, no foot paresthesias, no foot ulcerations, no polydipsia, no polyphagia, no polyuria, no weakness and no weight loss. There are no hypoglycemic complications. Symptoms are stable. Hypertension Associated symptoms include malaise/fatigue and shortness of breath. Pertinent negatives include no anxiety, blurred vision, chest pain, headaches, neck pain, orthopnea, palpitations, peripheral edema, PND or sweats. Hemoglobin A1C (POCT) (%) Date Value 02/13/2021 6.2 Review labs: Last visit: fatigue [id number] Pain mgt went well. Trying to get MRI records. Scheduling for epidural injection. Asthma: No exacerbations; no recent rescue inhaler use. HTN: see above DMII: Sugars: 89-120 Not exercising as much since moving to [place]. B12- 273 Diarrhea: blow outs from table to bathroom. Thinks may be xu slaw, other salad. Not everything. Review of Systems Constitutional: Positive for fatigue and malaise/fatigue. Negative for weight loss. Eyes: Negative for blurred vision. Respiratory: Positive for shortness of breath. Cardiovascular: Negative for chest pain, palpitations, orthopnea and PND. Musculoskeletal: Negative for neck pain. Neurological: Negative for weakness and headaches. Endo/Heme/Allergies: Negative for polydipsia and polyphagia. BP 140/60 Pulse 62 Temp 36.1 C (96.9 F) Ht 5' (1.524 m) Wt 156 lb 6.4 oz (70.9 kg) BMI 30.54 kg/m Objective Physical Exam Vitals and nursing note reviewed. HENT: Head: Normocephalic and atraumatic. Right Ear: External ear normal. Left Ear: External ear normal. Nose: Nose normal. Mouth/Throat: Pharynx: No oropharyngeal exudate. Eyes: General: No scleral icterus. Conjunctiva/sclera: Conjunctivae normal. Pupils: Pupils are equal, round, and reactive to light. Cardiovascular: Rate and Rhythm: Normal rate and regular rhythm. Heart sounds: Normal heart sounds. No murmur heard. No friction rub. No gallop. Pulmonary: Effort: Pulmonary effort is normal. No respiratory distress. Breath sounds: Normal breath sounds. No wheezing or rales. Abdominal: General: Bowel sounds are normal. There is no distension. Palpations: Abdomen is soft. Tenderness: There is no abdominal tenderness. There is no guarding or rebound. Musculoskeletal: General: No tenderness or deformity. Normal range of motion. Skin: General: Skin is warm and dry. Coloration: Skin is not pale. Findings: No erythema or rash. Neurological: Mental Status: She is alert. Psychiatric: Mood and Affect: Affect normal. ASSESSMENT/PLAN: 1. Type 2 diabetes mellitus with peripheral neuropathy (HCC) - ICD9: 250.60, 357.2, ICD10: E11.42 (primary diagnosis) Controlled. - Continue current medications - HGBA1C B/O - ALBUMIN/CREAT RATIO RND UR 2. Screening for diabetic retinopathy - ICD9: V80.2, ICD10: Z13.5 - Referral to Ophthalmology 3. Fatigue, unspecified type - ICD9: 780.79, ICD10: R53.83 - TSH BLD - CONSULT TO [facility] 4. Dyslipidemia - ICD9: 272.4, ICD10: E78.5 - good control - Continue current medication. - ROSUVASTATIN 10 MG TABLET 5. Hypokalemia - ICD9: 276.8, ICD10: E87.6 - COMP METABOLIC PANEL - POTASSIUM CHLORIDE ER 20 MEQ TABLET,EXTENDED RELEASE 6. Hypomagnesemia - ICD9: 275.2, ICD10: E83.42 - MAGNESIUM BLD 7. Need for influenza vaccination - ICD9: V04.81, ICD10: Z23 - INFLUENZA SEASONAL QUADRIVALENT HIGH DOSE AGE 65+ 8. Vitamin B 12 deficiency - ICD9: 266.2, ICD10: E53.8 - Just completed 3mo course of replacement 9. Hypertension, essential - ICD9: 401.9, ICD10: I10 - fair control - Continue current medication(s) - Encouraged dietary sodium restriction/DASH diet - Recommended regular aerobic exercise. - Recommend home blood pressure monitoring, to bring results in on next visit - Goal of BP <130/80 Betty Bueno MD documented in this encounter [facility] 02-09-2021 Miscellaneous Notes Phone call from patient. Patient is requesting a refill of albuterol inhaler. She states that you have not refilled this for her yet, She does have appt with you on 02/13/21, but she is currently out. documented in this encounter [facility] 01-30-2021 Miscellaneous Notes 1.Are you diabetic yes 2. Are you on any blood thinners? No 3. Are you taking any aspirin? No 4. Have you had any recent imaging done on your body part that's being injected? No 5. Do you have any allergies to latex? Yes 6. Do you have any allergies to seafood? No 7. Do you have any allergies to shellfish? No 8. Do you have any allergies to x-ray dye? No 9. Are you taking Xanax for the procedure? No 10. Have you done physical therapy in the last year? No If yes, When and Where? (Medical Records Release needs to be signed.) 11. Were the pre-procedure instructions explained to the patient? Yes 12. Do you have a pacemaker? No 13. Do you have an internal stimulator of any kind? No If yes, please bring the remote with you to your procedure visit. 14. Have you received the COVID-19 Vaccine? No. If yes, date(s) received: (Patient should not receive a procedure including steroids 14 days prior to their first dose of the COVID vaccine. They should not receive any procedure containing steroids in the time frame between their 1st and 2nd doses of the COVID vaccine. They should not receive a procedure containing steroids 14 days after their 2nd dose of the COVID vaccine.) Milly Sunshine documented in this encounter [facility] 01-30-2021 Miscellaneous Notes Addended by: BEKAH CINTRON III on: 01/30/2021 04:53 PM Modules accepted: Orders Addended by: GILBERT ESTRADA on: 01/30/2021 04:38 PM Modules accepted: Orders documented in this encounter [facility] 01-30-2021 History of Present illness Narrative [facility] [place] General Name: Akila De Los Santos : 1945 Purpose: Follow-up Date: 01/30/2021 Last visit Date 12/19/2020 Interval History: Akila De Los Santos reports that her low back is more painful today. She attributes it to the wet weather. She is having some right foot dysesthesias in the base of the foot, but no radicular symptoms down the limbs. Current Status: INTAKE PAIN ASSESSMENT 01/30/2021 Are you having pain associated with your visit today? Yes, Provider notified Pain Scales Verbal (Numeric Rating or Visual Analog Scale) Pain Level 6 Pain Location (No Data) Description Aching;Stabbing Duration Units Years Frequency Intermittent Intervention/Comfort measure Medication;Heat Pain: Timing: not constant, but has every day Character: Pins and [place], Sharp and Aching Primary location: axial low back Radiation: right lower limb, posterior limb to the foot; occasionally left knee region Current pain level on NRS: 3/10 Exacerbated factors: Prolonged standing and walking; sitting Alleviating factors: Changing positions Medications requiring refills today: Tramadol 50mg Date last filled: 12/23/2020 Quantity filled: 45 How many left: 7 or 8 Time most recent dose taken: yesterday Non-Opioid Medications requiring refills today: o Tylenol Arthritis (OTC) o Neurontin 400mg TID Compliance: Safety Checklist: Are you taking proper precautions to safe guard your medication? Yes Taking the medications as prescribed? Yes Getting pain medications from another physician? No Obtaining pain medication from another source? No Sharing medications with friends/family? No Quality of life improved as a result of taking these medications? Yes Any side effect with this medication? No Justification for Continued Opioid Care: Adequate analgesia? Yes Aberrant drug seeking behavior? No Adverse reactions? No Medications improve quality of life? Yes Function: Weekly Activity Level (0=none; 27=358+ minutes of total activity not including work activity): 3/10 (Physician estimate) Ambulation and Activities of Daily Living: With straight cane Device for community ambulation Independent Exercise(s) or Activities: Walking in the park Work participation: Retired Functional Goals: To be able to walk for exercise more frequently Initial HPI: (Obtained on 12/19/2020) Consult. Akila De Los Santos is a 75 year old year-old female, who presents with the following chief complaint(s): low back pain. Symptoms were first noted many years ago. The onset of symptoms was not sudden and was without associated trauma. Treatments prior to initial presentation include the following: Medications (See below), Injections (See below), Surgery (See below), Modalities (eg. Heat, Ice), Physical Therapy , Home Exercise Program and Activity Modification. She has a history of scoliosis, ultimately resulting in 3 low back surgeries, most recent in 2004, with hardware. She has continued to have sciatica pain, which has been managed by Dr. Ramírez in [place] for pain management with medications and injections. She just moved to [place] and is looking to establish a pain doctor in the region. She has had three lumbar epidural steroid injections, most recently October 17, 90% relief, typically lasting 2-3 months. Also has neuropathy and low back arthritis. Compliance: PDMP website checked and validated. All prescriptions have been APPROPRIATELY filled. No suspicious activity was identified. by Bekah Cintron MD 01/30/2021 Pain Medications Taken to Date (for the chief complaint(s)): Membrane Stabilizers: Neurontin (Gabapentin) NSAIDS: none Opioids: Tramadol Muscle Relaxants: none Topicals: Voltaren Gel, Aspercreme - helps Other Prescription or OTC Pain Medications: none Non-Pain Meds of Note: None Allergies: ALLERGIES Allergen Reactions Aspirin Shortness of Breath Lisinopril Swelling Latex Rash Penicillins Hives, Rash Sulfamethoxazole Hives Current Medications, Past Medical History, Past Surgical History, Family History & Social History: Reviewed on today's date, noted in the attribution Outside Records: [place] [facility], reviewed 01/30/2021: 08/2020 - Right Hip injection (80% reduced) - relief lasted 4 months 05/2020 - Bilateral SI joint injection (95% reduced pain) - relief lasted 6 months Review of Systems: Reviewed on today's date, noted in the attribution Pertinent Positives: MSK - pain in the region being treated Neuro: weakness or numbness in the region being treated Skin: Negative (No itching) Eyes: Negative (No blurred or double vision) Respiratory: Negative (No Cough, [id number], Dyspnea on exertion, wheezing) Cardiovascular: Negative (No Chest Pain, Tightness, Pressure, Palpitations) Gastrointestinal: Negative (No Abdominal pain, Nausea, Vomiting, Constipation, Diarrhea) Genitourinary: Negative (No dysuria) Hematologic: Negative (No bleeding, bruising) OB: is Denied or Not Applicable Endocrine: Negative (No hot/cold intolerance) Psychiatric: Negative (No depression, anxiety or suicidal ideation) Diagnostic Studies: Reviewed Personally on today's date, noted in the attribution MRI Spine Report No resulted procedures found. DATE PROCEDURE IMPROVEMENT None to date at this practice. Physical Exam: 01/30/21 1540 Pulse: 60 Resp: 18 SpO2: 98% Constitutional:overweight Eyes: Conjunctiva clear. No discharge from eyes Cardiovascular: Appears well perfused Lymphatic: No visible regional lymphadenopathy Skin: No visible rashes or ecchymosis Psychiatric: Full affect, Alert, Pleasant Neuro-Lower: Neural Tension Signs: ? Negative slump in Bilateral lower limbs Sensation: ? intact to light touch in the L2-S2 Bilateral lower limb dermatomes Muscle Tone: ? Normal and symmetric throughout without clonus Strength: ? Iliopsoas (L2): 5 Left, 5 Right ? Quadriceps (L3) 5 Left, 5 Right ? Anterior Tibialis (L4): 5 Left, 5 Right ? Extensor Hallucis Longus (L5): 5 Left, 5 Right ? Gastrocnemius (S1): 5 Left, 5 Right Reflexes: ? Decreased 1+ and symmetric Patellar, Achilles ? Downgoing plantar responses (negative Babinski) bilaterally Musculoskeletal-Lower: Inspection: ? Symmetric without atrophy Palpation: ? Lumbar Paraspinal Tenderness: None on Bilateral side(s) ? Paraspinal Spasms: None ? PSIS Tenderness: None on Bilateral side(s) ? Greater Trochanter Tenderness: None on Bilateral side(s) Spine Range of Motion: ? Flexion: Decreased 25% Without end range pain ? Extension: Decreased 25% Without end range pain ? Combination extension and rotation pain: None Hip Range of Motion: ? Right Hip: ? Internal Rotation: Normal; Pain at end range: None ? External Rotation: Normal; Pain at end range: None ? Left Hip: ? Internal Rotation: Normal; Pain at end range: None ? External Rotation: Normal; Pain at end range: None Sacroiliac Maneuvers: Deferred Diagnoses: (M54.16) Lumbar radiculopathy (primary encounter diagnosis) (M96.1) Post laminectomy syndrome (M47.816) Lumbar spondylosis (M46.1) Sacroiliitis (HCC) Impression: 75 year old female with significant past medical history for low back decompressive surgeries x 3, scoliosis, who presents with complaint(s) of ongoing axial low back pain, right lower limb radicular symptoms. Has been established with pain management in [place], just moved to [place]. Stable on very low doses of medication. Plan: Akila De Los Santos would benefit from the following to reach personal goals for decreasing pain, improving function and work participation, and/or improving quality of life: -Interventional Procedure: Bilateral Sacroiliac joint injections under fluoroscopic guidance The risks, benefits, alternative treatment options and prognosis of the procedure were discussed and all of the patient's questions/concerns were addressed to the patient s satisfaction. The patient expressed understanding and gave verbal consent to proceed. Medication(s): Tramadol 50mg, disp #45, 1 refill OIC: The opioid informed consent was reviewed and signed by the patient and a copy was offered UDS today Neurontin 400mg TID - continue Additional Studies: MRI information - will have patient sign release of records for lumbar MRI Referrals: No additional considerations at present Functional Restorationism: Home Exercise Program: Prescribed on 12/19/2020 for the lumbar region(s) Range of motion exercises and Stretches To be performed at least 3 times per week under this Physician's supervision Depending on response to the above-mentioned plan of care, in the future may consider evaluation for: Epidural; Increase Neurontin -Follow-up: 2 months Attribution: In addition to reviewing the information noted above, some elements copied from my most recent clinical note(s), including the physical exam (completed in entirety today), and the impression and plan sections, have been updated where appropriate. All reflect current medical decision making from today's date. Bekah Cintron MD, [facility] Subjective HPI Review of Systems Eyes: Negative for blurred vision. Respiratory: Negative for shortness of breath. Cardiovascular: Positive for leg swelling. Negative for chest pain. Gastrointestinal: Negative for constipation, diarrhea, heartburn and nausea. Genitourinary: Negative for dysuria. Skin: Negative for itching. Neurological: Negative for dizziness, tingling and headaches. Endo/Heme/Allergies: Does not bruise/bleed easily. Psychiatric/Behavioral: Negative for depression and suicidal ideas. PAST MEDICAL HISTORY Diagnosis Date Asthma Diabetes mellitus (HCC) DJD (degenerative joint disease) Osteoarthritis of multiple joints PAD (peripheral artery disease) (HCC) TIA (transient ischemic attack) PAST SURGICAL HISTORY Procedure Laterality Date TOTAL ABDOM HYSTERECTOMY No family history on file. Social History Tobacco Use Smoking status: Never Smoker Smokeless tobacco: Never Used Substance Use Topics Alcohol use: Never Drug use: Never Current Meds traMADol (ULTRAM) 50 mg tablet Take 1 tablet by mouth twice daily for 45 days. Use sparingly potassium chloride 20 mEq TbER Take 2 tablets by mouth twice daily. gabapentin (NEURONTIN) 400 mg capsule Take 1 capsule by mouth three times daily for 180 days. valACYclovir (VALTREX) 1 gram Take 1 tablet by mouth once daily. blood sugar diagnostic (ACCU-CHEK KAYCEE PLUS TEST STRP) test strip Use as instructed to check blood sugar once daily as needed. Lancets lancets Use as instructed to check blood sugar once daily as needed magnesium chloride 64 mg magnesium tab Take 1 tablet by mouth once daily for 14 days. Cyanocobalamin 1,000 mcg TbER Take 1 tablet by mouth once daily. doxazosin (CARDURA) 2 mg tablet Take 1 tablet by mouth twice daily. amLODIPine (NORVASC) 5 mg tablet Take 5 mg by mouth once daily. indapamide (LOZOL) 1.25 mg tablet 1.2 mg. estradiol (ESTRACE) 1 mg tablet Take 1 mg by mouth once daily. montelukast (SINGULAIR) 10 mg tablet Dxyfd-7-AXK-EPA-Fish Oil (FISH OIL) 300-1,000 mg cap Take by mouth. calcium phosphate-vitamin D3 (CITRACAL-D3 GUMMIES) 250 mg-12.5 mcg (500 unit) chew Take by mouth. BREO ELLIPTA 200-25 mcg/dose inhaler carbamide peroxide (DEBROX) 6.5 % otic solution Use 4-5 Drops in both ears twice daily. Objective There were no vitals taken for this visit. Physical Exam documented in this encounter [facility] 12-22-2020 Miscellaneous Notes Patient left a message stating she is concerned because we have not received her records from [facility]. She stated she spoke with Dr Pritchard's office and they have not received a request yet from us. She stated she signed all the papers to have everything transferred when she was in the [place] office. Please advise. Brooklyn Linder documented in this encounter [facility] 12-22-2020 Miscellaneous Notes Called and left message for patient to scheduloe follow up one month follow up with Dr. Cintron. Milly Sunshine documented in this encounter [facility] 12-19-2020 History of Present illness Narrative [facility] General Name: Akila De Los Santos : 1945 Purpose: New Patient Consultation Date 12/19/2020 This is a virtual visit via Zoom, Phone and/or MyChart. It required patient-provider interaction for the medical decision making as documented below. Patient understands that privacy cannot be guaranteed. Thank you, Betty Bueno, for referring Akila De Los Santos for evaluation and management options for the chief complaint(s) noted below. Initial HPI: (Obtained on 12/19/2020) Akila De Los Santos is a 75 year old year-old female, who presents with the following chief complaint(s): low back pain. Symptoms were first noted many years ago. The onset of symptoms was not sudden and was without associated trauma. Treatments prior to initial presentation include the following: Medications (See below), Injections (See below), Surgery (See below), Modalities (eg. Heat, Ice), Physical Therapy , Home Exercise Program and Activity Modification. She has a history of scoliosis, ultimately resulting in 3 low back surgeries, most recent in 2004, with hardware. She has continued to have sciatica pain, which has been managed by Dr. Ramírez in [place] for pain management with medications and injections. She just moved to [place] and is looking to establish a pain doctor in the region. She has had three lumbar epidural steroid injections, most recently October 17, 90% relief, typically lasting 2-3 months. Also has neuropathy and low back arthritis. Current Status: Pain: Timing: not constant, but has every day Character: Pins and [place], Sharp and Aching Primary location: axial low back Radiation: right lower limb, posterior limb to the foot; occasionally left knee region Current pain level on NRS: 3/10 Exacerbated factors: Prolonged standing and walking; sitting Alleviating factors: Changing positions Medication: Current pain medications: o Tramadol 50mg o Tylenol Arthritis o Neurontin 400mg TID Analgesia: adequate Function: Weekly Activity Level (0=none; 80=191+ minutes of total activity not including work activity): 3/10 (Physician estimate) Ambulation and Activities of Daily Living: With straight cane Device for community ambulation Independent Exercise(s) or Activities: Walking in the park Work participation: Retired Functional Goals: To be able to walk for exercise more frequently Compliance: PDMP website checked and validated. All prescriptions have been APPROPRIATELY filled. No suspicious activity was identified. 12/19/2020 by Bekah Cintron MD Tramadol 50mg, #45, last 10/30/2020 - Dr. Latesha Ramírez (11 remaining) Pain Medications Taken to Date (for the chief complaint(s)): Membrane Stabilizers: Neurontin (Gabapentin) NSAIDS: none Opioids: Tramadol Muscle Relaxants: none Topicals: Voltaren Gel, Aspercreme - helps Other Prescription or OTC Pain Medications: none Non-Pain Meds of Note: None Allergies: ALLERGIES Allergen Reactions Aspirin Shortness of Breath Lisinopril Swelling Latex Rash Penicillins Hives, Rash Sulfamethoxazole Hives Current Medications, Past Medical History, Past Surgical History, Family History & Social History: Reviewed on today's date, noted in the attribution Review of Systems: Reviewed on today's date, noted in the attribution Pertinent Positives: MSK - pain in the region being treated Neuro: weakness or numbness in the region being treated Skin: Negative (No itching) Eyes: Negative (No blurred or double vision) Respiratory: Negative (No Cough, [id number]-[id number], Dyspnea on exertion, wheezing) Cardiovascular: Negative (No Chest Pain, Tightness, Pressure, Palpitations) Gastrointestinal: Negative (No Abdominal pain, Nausea, Vomiting, Constipation, Diarrhea) Genitourinary: Negative (No dysuria) Hematologic: Negative (No bleeding, bruising) OB: is Denied or Not Applicable Endocrine: Negative (No hot/cold intolerance) Psychiatric: Negative (No depression, anxiety or suicidal ideation) Diagnostic Studies: Reviewed Personally on today's date, noted in the attribution MRI Spine Report No resulted procedures found. DATE PROCEDURE IMPROVEMENT None Physical Exam: There were no vitals filed for this visit. Constitutional:overweight Eyes: Conjunctiva clear. No discharge from eyes Cardiovascular: Appears well perfused Lymphatic: No visible regional lymphadenopathy Skin: No visible rashes or ecchymosis Psychiatric: Full affect, Alert, Pleasant Note: Examination was limited today due to this being a virtual/telemedicine encounter Diagnoses: (M54.16) Lumbar radiculopathy (primary encounter diagnosis) (M96.1) Post laminectomy syndrome (M47.816) Lumbar spondylosis Impression: 75 year old female with significant past medical history for low back decompressive surgeries x 3, scoliosis, who presents with complaint(s) of ongoing axial low back pain, right lower limb radicular symptoms. Has been established with pain management in [place], just moved to [place]. Stable on very low doses of medication. Plan: Akila De Los Santos would benefit from the following to reach personal goals for decreasing pain, improving function and work participation, and/or improving quality of life: Medication(s): Tramadol 50mg, disp #45 OIC will be needed at upcoming appointment Neurontin 400mg TID Additional Studies: She will bring outside records with her to her appointment, including lumbar MRI, procedure notes if available. Outside records were available and reviewed today, but they were office notes and did not include the above information Referrals: No additional considerations at present Functional Restorationism: Home Exercise Program: Prescribed on 12/19/2020 for the lumbar region(s) Range of motion exercises and Stretches To be performed at least 3 times per week under this Physician's supervision Depending on response to the above-mentioned plan of care, in the future may consider evaluation for: Epidural; Increase Neurontin -Follow-up: 1 month Attribution: In addition to reviewing the information noted above, some elements copied from my most recent clinical note(s), including the physical exam (completed in entirety today), and the impression and plan sections, have been updated where appropriate. All reflect current medical decision making from today's date: 12/19/2020 Bekah Cintron MD, [facility] documented in this encounter [facility] 12-16-2020 Miscellaneous Notes Patient states she has discussed her taking the valcyclovir daily with Dr. Bueno. She has not received a new rx from him yet. Please send. documented in this encounter [facility] 12-01-2020 Miscellaneous Notes Please see below MS ----- Message from Elisaphylicia Coffman sent at 12/01/2020 11:00 AM EDT ----- Regarding: Ximena/ Prescription Refills for diabetes Subject Line Format: Medicine / [Provider Name] / [Issue] Patient has been identified by name and Date of (Y/N): yes Patient: Akila De Los Santos Date of : 1945 Provider for this encounter: Betty Bueno MD Reason for the call/escalation: Patient called in and asked for refills on lancets and test strips for the [employer] plus machine. [facility] [place]. Person calling if other than patient: self Return call to if other than patient: self Best contact number: [phone] Elisa Perales December 01, 2020 11:00 AM documented in this encounter [facility] 11-27-2020 Miscellaneous Notes Radiology Service Progress Note PATIENT NAME: Akila De Los Santos DATE OF SERVICE: November 27, 2020 TIME: 12:27 PM PATIENT IDENTITY VERIFICATION COMPLETED USING TWO (2) IDENTIFIERS: Name and Date of confirmed by patient verbally and Name and Date of confirmed by identification band. FALL SCREENING: Has the patient had 2 falls in the last year or 1 fall with injury or currently using an Ambulatory Assistive Device (Walker, Cane, Wheelchair, Crutches, etc.)? No PATIENT GENDER DATA: Female. status: : No status: NO. PATIENT RELEVANT IMPLANT DATA REVIEWED: Not Applicable RADIOLOGY DEPARTMENT: Bone Density PERIPHERAL IV DATA: Not applicable SIGNED BY: RT Kareen(R) November 27, 2020 12:27 PM documented in this encounter [facility] 11-11-2020 Miscellaneous Notes The background check and OARRS report have been scanned into the chart. The patient would be coming in for chronic pain syndrome. This is a [facility] referral. The referring physician is . The patient has [employer] insurance. Please review. Have you had Pain Management in the past 3 years? Yes If yes, where? Are you currently taking pain medication? See OARRS If so, please list: Patient scheduled with in [place]. Patient will come early to fill out paperwork. Patient aware we need her previous pain management prior to her scheduled appointment. Olive Hernandez documented in this encounter [facility] 11-07-2020 Miscellaneous Notes Patient declined appointment and resource list. 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 Zandra Burden Film [employer] November 07, 2020 1:26 PM ----- Message from Gabbie Massey sent at 11/07/2020 11:38 AM EDT ----- Regarding: Orthopedics / Open Foot: Diabetic Foot Care / Unable To Schedule Dx Subject Line Format: Orthopedics / [Provider Name or Open & Body Part] / [Issue] Patient has been identified by name and Date of (Y/N): Y Patient: Akila De Los Santos Date of : 1945 Previous Provider Seen: N/A Body Part(s) Identified: B/L FOOT Diagnosis/Reason For Visit: DIABETIC FOOT CARE Reason for the call/escalation: UNABLE TO SCHEDULE DX If reason for call/escalation is discharge from ED/ER or Hospital, which facility was the patient seen at: N/A Was an appointment scheduled (Y/N): N Person calling if other than patient: PATIENT Return call to if other than patient: PATIENT Best contact number: [phone] Gabbie Massey November 07, 2020 11:38 AM documented in this encounter [facility] 11-06-2020 Miscellaneous Notes Spoke with patient and verified that she is in fact taking the doxazosin 2 mg BID. Please advise. Leanne Kauffman LPN This medicine is usually dosed once daily; can we verify patient is prescribed 2mg BID? Thanks. NHM Patient called in stating she seen on 11/03/20 and Doxazosin is not on her medication list. Patient would like this added to list and needs refills on this medication. Ordered pended. documented in this encounter [facility] 11-03-2020 History of Present illness Narrative Subjective HPI Patient is a 75yo AA W presenting today to [facility]. She recently moved to [place] from [place], [place]. Today she has no health concerns. Does report that she is still tired a lot since having COVID-19 infection in January 2020. Sleeps for 20mins. No cough. Mild SOB but not worse. Chronic Medical Conditions: Asthma Reports being stable. Uses rescue inhaler or nebulizer < 1x/wk. Last use was last wk. Triggers are smoke, perfumes, heat. DMII (Last saw Dr. Lambert < 3 months ago). Reports last A1c as 6.3. Denies polyuria/ploydipsia. May get up to urinate 2x/night. No weight loss. No blurred vision. HTN: 130s/60s @ home. Usual is 130s/60s. No CP. SOB as above. Chronic pain Walking: Back issue. Uses a cane. PMH: asthma, DMII, HTN, PAD (L calf pain, improved), TIA (1997, R-side), OA (back, leans to right, thoracic, and LS), DJD, DVTs in hx, HSV Meds: reviewed. On Estradiol since in her 30s. Former provider tried to take her off of it and she became miserable really quickly. Also was taken off a couple of yrs ago: gets hot flashes. KCl- concerned about how much KCl she's on All: sulf, pcn, lisinopril (angioedema), latex, ASA (asthma trigger. 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 (<1/2PPD, x 0-15 yrs) EtOH- wine occasionally (little bottles). 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 Widdowed x 2. 3 children: 52, 50, 38. Family/Support system: oldest son in [place]. FH- HTN- mother, mother's side, heart dz, mother, brother (quadruple bypass. Father- of [place]. DMII- sister Heart dz No cancer- Asthma- father HM: A-recs Colon cancer screenin-75: colonoscopy 5 yrs ago. HTN scr B recs: Depression: no depressed mood. No- anhedonia Fall Prevention- no falls. Uses a cane. Hep C 18-79: Reports neg screen Diet and exercise Osteoporosis screening- Statin for adults w/ ASCVD score >10% Review of Systems Constitutional: Positive for malaise/fatigue. Negative for chills, fever and weight loss. HENT: Negative. Respiratory: Positive for shortness of breath. Negative for cough. Cardiovascular: Negative for chest pain and leg swelling. Gastrointestinal: Negative. Genitourinary: Negative. Musculoskeletal: Positive for back pain. Skin: Negative. Neurological: Positive for tingling (LEs). BP 142/66 Pulse 81 Temp 36.1 C (96.9 F) Wt 154 lb (69.9 kg) 118/60 (repeat) Objective Physical Exam Vitals reviewed. Constitutional: General: She is not in acute distress. HENT: Head: Normocephalic and atraumatic. Right Ear: Tympanic membrane normal. There is impacted cerumen. Left Ear: Tympanic membrane normal. There is impacted cerumen. Nose: No congestion. Eyes: Pupils: Pupils are equal, round, and reactive to light. Cardiovascular: Rate and Rhythm: Normal rate. Heart sounds: No murmur heard. No gallop. Pulmonary: Effort: No respiratory distress. Breath sounds: No wheezing, rhonchi or rales. Abdominal: General: Bowel sounds are normal. There is no distension. Palpations: Abdomen is soft. There is no mass. Tenderness: There is no abdominal tenderness. There is no guarding. Musculoskeletal: General: No swelling. Skin: General: Skin is warm and dry. Neurological: Mental Status: She is alert. Psychiatric: Mood and Affect: Mood normal. ASSESSMENT/PLAN: 1. Encounter for medical examination to establish care - ICD9: V70.9, ICD10: Z00.00 (primary diagnosis) - Encouraged monthly Breast Self Exam - Follow up for annual exam in one year. - Await records from prior PCP to decide on which health maintenance gaps need to be filled in. 2. Screening for osteoporosis - ICD9: V82.81, ICD10: Z13.820 - DXA-AXIAL SKELETON 3. Asymptomatic menopause - ICD9: V49.81, ICD10: Z78.0 - DXA-AXIAL SKELETON 4. Screening for lipid disorders - ICD9: V77.91, ICD10: Z13.220 - LIPID PANEL BASIC 5. Special screening examination for viral disease - ICD9: V73.99, ICD10: Z11.59 - Refused HIV & Hep C screens 6. Encounter for immunization - ICD9: V03.89, ICD10: Z23 - Will await vaccination record: ?due for Shingrix and Pneumovax? (pt thinks she's had.) 7. Chronic pain syndrome - ICD9: 338.4, ICD10: G89.4 - CONSULT TO PAIN MGT 8. Type 2 diabetes mellitus with peripheral neuropathy (HCC) - ICD9: 250.60, 357.2, ICD10: E11.42 The patient is new to me. - Diet controlled. Continue current mgt. Follow up A1c in 3 mos. - LIPID PANEL BASIC - MAGNESIUM BLD - COMP METABOLIC PANEL - VITAMIN B12 BLOOD - FOLATE SERUM 9. Bilateral impacted cerumen - ICD9: 380.4, ICD10: H61.23 - DEBROX 6.5 % EAR DROPS Nkosi Ximena, MD documented in this encounter [facility] 11-03-2020 Instructions Betty Bueno MD - 11/03/2020 12:43 AM EDT BONE MINERAL DENSITY PATIENT INSTRUCTIONS ======= Bone mineral density testing measures the amount of calcium in certain parts of your bones. This information determines how strong your bones are. The test is used to detect osteoporosis, a disease in which the bone's mineral content and density are low, increasing a person's risk of fractures. The lumbar spine (lower back) and the hip are the skeletal sites usually examined. For the test, remember that: 1. You cannot take this test if you are . 2. Eat a normal diet on the day of the test. 3. Take your medications as you normally would. 4. DO NOT take calcium supplements (such as Tums) for 24 hours before the test. 5. On the day of the test, leave valuables (jewelry or credit cards) at home. 6. The test should be performed prior to oral, rectal or IV contrast studies, or at least 7 days after any of these studies. For the test, you may be asked to wear a hospital gown. You will lie on your back, on a padded table, in a comfortable position. Generally, you can resume your usual activities immediately. THE DASH DIFFERENCE High blood pressure affects 50 million Americans and is one of the leading causes or heart diseased and stroke. The eating plan shown below, from the Dietary Approaches to Stop Hypertension (DASH) study, is good news for those affected by or at risk for high blood pressure. As reported in the [place] Journal of Medicine, the DASH diet, which is low in fat and rich in low-fat milk, cheese and yogurt, fruits and vegetables, lowered blood pressure in individuals with both normal and elevated blood pressure. The use of foods lower in sodium made a slight improvement in blood pressure beyond what occurred with the low-fat dairy products, fruits and vegetables. The study was based on a 2000 calorie diet and contained the number of servings from each of the food groups shown in the chart below. For many people following the DASH eating plan can be an important and easy step in preventing or managing high blood pressure. The DASH Eating Style FOOD GROUP DAILY SERVINGS 1 SERVING EQUALS Milk and Dairy 2-3 8 oz low-fat milk 1 cup low-fat 1 oz low-fat cheese Fruits 4-5 1 medium fruit cup dried fruit cup frozen or canned fruit 6 oz fruit juice Vegetables 4-5 1 cup raw leafy vegetables cup cooked vegetables 6 oz vegetable juice Grain 7-8 1 slice bread cup dry or hot cereal cup cooked rice or pasta Meat, fish, Poultry 2 or less 3 oz cooked meat, poultry, or fish Nuts, Seeds, Dried Beans 4-5 per week 1/3 cup nuts 2 tbsp seeds cup cooked dried beans Sample DASH Menu Breakfast 1 cup corn flakes (with 1 tsp sugar) 8 oz low-fat milk 1 banana 1 slice whole wheat toast 1 tbsp jelly grapefruit Lunch 2 oz sliced turkey 1 lindsey bread 1 tbsp low-fat mayonnaise cup fruit cocktail in light syrup Raw vegetable medley with: 3-4 sticks of each carrot and celery 2 radishes 2 loose leaf lettuce leaves Snack cup dried apricots cup mini pretzels 1/3 cup mixed nuts 1 cup flavored low-fat yogurt Dinner 3 oz grilled lean beef 1 cup scallion rice 1 cup steamed broccoli 8 oz low-fat chocolate milk Spinach salad with cup raw spinach 2 mcbride tomatoes 2 cucumber slices 10 Ways to DASH Up Your Dining 1.) Re-think your drink! Make low-fat milk your beverage of choice: order it when dining out. 2.) Pizza, Pizza, Pizza! Combine a pre-made pizza crust with pizza sauce, shredded low-fat mozzarella and lots of vegetable toppings fresh tomatoes, zucchini, spinach, carrot curls, cauliflower, broccoli and artichoke hearts for a totally awesome creation. 3.) Start Your Day with whole grain cereal and low-fat milk. 4.) Make it with Milk! Use low-fat milk in place of water when cooking, especially with oatmeal, boxed rice and pasta dishes 5.) For That Snack Attack: Serve cereal with low-fat milk and fresh fruit. For a tangy twist, layer flavored low-fat yogurt with cereal to create yogurt sundaes. 6.) Make Super Soup! Prepare soup with low-fat milk instead of water. Add fresh, canned or frozen vegetables to prepared soups. 7.) Shake em Up! Create powder blender and pourer drinks. Start with a cup of low-fat milk, add frozen fruit chunks and flavoring to make your own smoothie drink. 8.) Creat a Baked Potato Bar! Serve baked potatoes with a variety of toppings like low-fat cheese, chili, refried beans, salsa or broccoli. Add them up one meal could contain three or four vegetable servings! 9.) Encourage Big Dippers! Make a fruit dip by sprinkling cinnamon into vanilla low-fat yogurt. For a quick vegetable dip, add ranch seasoning or chopped chives to plain low-fat yogurt. 10.) Say Cheese! Top Steamed vegetables with shredded low-fat cheese. documented in this encounter [facility] 09-19-2020 Miscellaneous Notes Pt is asking to be seen by . The pt says she knows . Please advise if you want to see this pt as a new pt we can make her apt. If you want her to see a resident let us know as well. Either way she wants us to call her back with the out come. Please Advise MG Electronically signed by Lakia Childress [facility] at 09/19/2020 1:16 PM EDTdocumented in this encounter [facility] Evaluation note Diagnosis Encounter for medical examination to establish care- Primary Screening for osteoporosis Special screening for osteoporosis Asymptomatic menopause Screening for lipid disorders Special screening examination for viral disease Special screening examination for unspecified viral disease Encounter for immunization Need for other specified prophylactic vaccination against single bacterial disease Chronic pain syndrome Type 2 diabetes mellitus with peripheral neuropathy (HCC) Bilateral impacted cerumen Impacted cerumen [facility] [place] note* Diagnosis Screening for osteoporosis Special screening for osteoporosis Asymptomatic menopause [facility] [place] [facility] Diagnosis Lumbar radiculopathy- Primary Thoracic or lumbosacral neuritis or radiculitis, unspecified Post laminectomy syndrome Postlaminectomy syndrome, unspecified region Lumbar spondylosis Lumbosacral spondylosis without myelopathy documented in this encounter [facility] [place] note* Diagnosis Lumbar radiculopathy- Primary Thoracic or lumbosacral neuritis or radiculitis, unspecified Post laminectomy syndrome Postlaminectomy syndrome, unspecified region Lumbar spondylosis Lumbosacral spondylosis without myelopathy Sacroiliitis (HCC) Sacroiliitis, not elsewhere classified Encounter for long-term use of opiate analgesic Encounter for long-term (current) use of other medications documented [facility] [place] [facility] Diagnosis Type 2 diabetes mellitus with peripheral neuropathy (HCC)- Primary Screening for diabetic retinopathy Screening for other eye conditions Fatigue, unspecified type Dyslipidemia Other and unspecified hyperlipidemia Hypokalemia Hypopotassemia Hypomagnesemia Disorders of magnesium metabolism Need for influenza vaccination Need for prophylactic vaccination and inoculation against influenza Vitamin B 12 deficiency Other B-complex deficiencies Hypertension, essential Unspecified essential hypertension [facility] [place] [facility] Diagnosis Sacroiliitis (HCC)- Primary Sacroiliitis, not elsewhere classified documented in this encounter [facility] [place] [facility]* Diagnosis Chest pain, unspecified type- Primary Dyslipidemia Other and unspecified hyperlipidemia Need for vaccination against Streptococcus pneumoniae using pneumococcal conjugate vaccine 7 documented [facility] [place] [facility] Diagnosis Sacroiliitis (HCC)- Primary Sacroiliitis, not elsewhere classified Lumbar radiculopathy Thoracic or lumbosacral neuritis or radiculitis, unspecified Post laminectomy syndrome Postlaminectomy syndrome, unspecified region Lumbar spondylosis Lumbosacral spondylosis without myelopathy [facility] [place] [facility] Diagnosis Chest pain, unspecified type [facility] [place] [facility] Diagnosis Other chest pain- Primary Chronic bilateral pleural effusions Loose stools Abnormal feces Type 2 diabetes mellitus with peripheral neuropathy (HCC) Hypertension, essential Unspecified essential hypertension Hot flashes Symptomatic menopausal or female climacteric states documented in this encounter [facility] [place] [facility]* Diagnosis Dyslipidemia Other and unspecified hyperlipidemia documented in this encounter [facility] [place] [facility]* Diagnosis Lumbar radiculopathy Thoracic or lumbosacral neuritis or radiculitis, unspecified Post laminectomy syndrome Postlaminectomy syndrome, unspecified region Lumbar spondylosis Lumbosacral spondylosis without myelopathy documented in this encounter [facility] [place] [facility]* Diagnosis Sacroiliitis (HCC)- Primary Sacroiliitis, not elsewhere classified Post laminectomy syndrome Postlaminectomy syndrome, unspecified region Lumbar radiculopathy Thoracic or lumbosacral neuritis or radiculitis, unspecified Lumbar spondylosis Lumbosacral spondylosis without myelopathy Encounter for long-term use of opiate analgesic Encounter for long-term (current) use of other medications documented in this encounter [facility] [place] note* Diagnosis Chronic bilateral pleural effusions documented in this encounter [facility] [place] note* Diagnosis Other chest pain documented in this encounter [facility] [place] note* Diagnosis Type 2 diabetes mellitus with peripheral neuropathy (HCC)- Primary Chronic left shoulder pain Pain in joint, shoulder region Hot flashes Symptomatic menopausal or female climacteric states Hypertension, essential Unspecified essential hypertension Hyperlipidemia, mixed Mixed hyperlipidemia Vitamin B12 deficiency Other B-complex deficiencies Essential tremor Essential and other specified forms of tremor Bilateral impacted cerumen Impacted cerumen documented in this encounter [facility] [place] [facility]* Diagnosis Hypertension, essential- Primary Unspecified essential hypertension Hot flashes Symptomatic menopausal or female climacteric states Essential tremor Essential and other specified forms of tremor documented in this encounter [facility] [place] [facility]* Diagnosis Chronic left shoulder pain Pain in joint, shoulder region documented in this encounter [facility] [place] note* Diagnosis Post laminectomy syndrome- Primary Postlaminectomy syndrome, unspecified region Lumbar radiculopathy Thoracic or lumbosacral neuritis or radiculitis, unspecified Sacroiliitis (HCC) Sacroiliitis, not elsewhere classified Encounter for long-term use of opiate analgesic Encounter for long-term (current) use of other medications Lumbar spondylosis Lumbosacral spondylosis without myelopathy documented in this encounter [facility] [place] note* Diagnosis Chronic left shoulder pain Pain in joint, shoulder region documented in this encounter [facility] [place] note* Diagnosis Acute right-sided low back pain with right-sided sciatica- Primary Preventive measure Unspecified prophylactic or treatment measure Hypertension, essential Unspecified essential hypertension Involuntary movements Abnormal involuntary movements documented in this encounter [facility] note* Diagnosis Chronic left shoulder pain- Primary Pain in joint, shoulder region Neck pain Cervicalgia documented in this encounter [facility] note* Diagnosis Dysuria- Primary Neck pain Cervicalgia documented in this encounter [facility] [place] note* Diagnosis Sacroiliitis (HCC)- Primary Sacroiliitis, not elsewhere classified Encounter for long-term use of opiate analgesic Encounter for long-term (current) use of other medications Post laminectomy syndrome Postlaminectomy syndrome, unspecified region Lumbar radiculopathy Thoracic or lumbosacral neuritis or radiculitis, unspecified Lumbar spondylosis Lumbosacral spondylosis without myelopathy documented in this encounter [facility] note* Diagnosis Hypertension, essential- Primary Unspecified essential hypertension Essential tremor Essential and other specified forms of tremor documented in this encounter [facility] note* Diagnosis Neck pain- Primary Cervicalgia Chronic left shoulder pain Pain in joint, shoulder region documented in this encounter [facility] note* Diagnosis Neck pain- Primary Cervicalgia Chronic left shoulder pain Pain in joint, shoulder region documented in this encounter [facility] [place] note* Diagnosis Sacroiliitis (HCC)- Primary Sacroiliitis, not elsewhere classified documented in this encounter [facility] note* Diagnosis Sacroiliitis (HCC)- Primary Sacroiliitis, not elsewhere classified Post laminectomy syndrome Postlaminectomy syndrome, unspecified region Lumbar radiculopathy Thoracic or lumbosacral neuritis or radiculitis, unspecified Lumbar spondylosis Lumbosacral spondylosis without myelopathy documented in this encounter [facility] note* Diagnosis Encounter for long-term use of opiate analgesic- Primary Encounter for long-term (current) use of other medications Acute right-sided low back pain with right-sided sciatica Post laminectomy syndrome Postlaminectomy syndrome, unspecified region Lumbar radiculopathy Thoracic or lumbosacral neuritis or radiculitis, unspecified Lumbar spondylosis Lumbosacral spondylosis without myelopathy Sacroiliitis (HCC) Sacroiliitis, not elsewhere classified documented in this encounter [facility] note* Diagnosis Acute right-sided low back pain with right-sided sciatica- Primary Lumbar radiculopathy Thoracic or lumbosacral neuritis or radiculitis, unspecified Post laminectomy syndrome Postlaminectomy syndrome, unspecified region Lumbar spondylosis Lumbosacral spondylosis without myelopathy Sacroiliitis (HCC) Sacroiliitis, not elsewhere classified documented in this encounter [facility] note* Diagnosis Hot flashes Symptomatic menopausal or female climacteric states documented in this encounter [facility] [place] note* Diagnosis Post laminectomy syndrome Postlaminectomy syndrome, unspecified region Lumbar radiculopathy Thoracic or lumbosacral neuritis or radiculitis, unspecified Lumbar spondylosis Lumbosacral spondylosis without myelopathy documented in this encounter [facility] note* Diagnosis Post laminectomy syndrome Postlaminectomy syndrome, unspecified region Lumbar radiculopathy Thoracic or lumbosacral neuritis or radiculitis, unspecified Lumbar spondylosis Lumbosacral spondylosis without myelopathy documented in this encounter [facility] note* Diagnosis Hypertension, essential Unspecified essential hypertension documented in this encounter [facility] note* Diagnosis Functional tremor- Primary Musculoskeletal malfunction arising from mental factors documented in this encounter [facility] note* Diagnosis Post laminectomy syndrome- Primary Postlaminectomy syndrome, unspecified region Lumbar radiculopathy Thoracic or lumbosacral neuritis or radiculitis, unspecified Lumbar spondylosis Lumbosacral spondylosis without myelopathy Sacroiliitis (HCC) Sacroiliitis, not elsewhere classified Encounter for long-term use of opiate analgesic Encounter for long-term (current) use of other medications documented in this encounter [facility] note* Diagnosis Type 2 diabetes mellitus with peripheral neuropathy (HCC)- Primary Special screening examination for viral disease Special screening examination for unspecified viral disease Hypertension, essential Unspecified essential hypertension documented in this encounter [facility] note* Diagnosis Lumbar radiculopathy Thoracic or lumbosacral neuritis or radiculitis, unspecified documented in this encounter [facility] note* Diagnosis Lumbar radiculopathy Thoracic or lumbosacral neuritis or radiculitis, unspecified documented in this encounter [facility] note* Diagnosis Post laminectomy syndrome Postlaminectomy syndrome, unspecified region Lumbar radiculopathy Thoracic or lumbosacral neuritis or radiculitis, unspecified Lumbar spondylosis Lumbosacral spondylosis without myelopathy documented in this encounter [facility] [place] note* Diagnosis Hypertension, essential Unspecified essential hypertension documented in this encounter [facility] [place] note* Diagnosis Type 2 diabetes mellitus with peripheral neuropathy (HCC)- Primary Mixed incontinence Mixed incontinence urge and stress (male)(female) Hypertension, unspecified type Mild intermittent asthma without complication Unspecified asthma documented in this encounter [facility] [place] note* Diagnosis Post laminectomy syndrome- Primary Postlaminectomy syndrome, unspecified region Lumbar radiculopathy Thoracic or lumbosacral neuritis or radiculitis, unspecified Sacroiliitis (HCC) Sacroiliitis, not elsewhere classified Encounter for long-term use of opiate analgesic Encounter for long-term (current) use of other medications Lumbar spondylosis Lumbosacral spondylosis without myelopathy documented in this encounter [facility] [place] note* Diagnosis Type 2 diabetes mellitus 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)- Primary Type II or unspecified type diabetes mellitus without mention of complication, not stated as uncontrolled OAB (overactive bladder) Hypertonicity of bladder Primary hypertension Unspecified essential hypertension documented in this encounter [facility] [place] note* Diagnosis OAB (overactive bladder)- Primary Hypertonicity of bladder documented in this encounter [facility] [place] note* Diagnosis Post laminectomy syndrome- Primary Postlaminectomy syndrome, unspecified region Lumbar radiculopathy Thoracic or lumbosacral neuritis or radiculitis, unspecified Encounter for long-term use of opiate analgesic Encounter for long-term (current) use of other medications Sacroiliitis (HCC) Sacroiliitis, not elsewhere classified Lumbar spondylosis Lumbosacral spondylosis without myelopathy documented in this encounter [facility] [place] note* Diagnosis COVID-19- Primary documented in this encounter [facility] [place] note* Diagnosis Type 2 diabetes mellitus with peripheral neuropathy (HCC)- Primary Need for shingles vaccine Need for prophylactic vaccination and inoculation against other viral diseases Neck pain Cervicalgia Eczema of both external ears Dysuria documented in this encounter [facility] [place] note* Diagnosis Foraminal stenosis of cervical region- Primary Spinal stenosis in cervical region Atrophy of muscle of right hand Atrophy of muscle of hand, unspecified laterality documented in this encounter [facility]* Diagnosis 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 Spinal stenosis of cervical region Spinal stenosis in cervical region documented in this encounter [facility]* Diagnosis Hot flashes Symptomatic menopausal or female climacteric states documented in this encounter [facility] [place] [facility]* Diagnosis 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 Spinal stenosis of cervical region Spinal stenosis in cervical region [facility] Diagnosis Spinal stenosis of cervical region- Primary Spinal stenosis in cervical region [facility]* Diagnosis Cervical stenosis of spinal canal- Primary Spinal stenosis in cervical region documented [facility] this [facility]* Diagnosis Sacroiliitis (HCC)- Primary Sacroiliitis, not elsewhere classified Lumbar radiculopathy Thoracic or lumbosacral neuritis or radiculitis, unspecified documented in this encounter [facility] [place] note* Diagnosis Encounter for long-term use of opiate analgesic- Primary Encounter for long-term (current) use of other medications Post laminectomy syndrome Postlaminectomy syndrome, unspecified region Lumbar radiculopathy Thoracic or lumbosacral neuritis or radiculitis, unspecified Lumbar spondylosis Lumbosacral spondylosis without myelopathy Sacroiliitis (HCC) Sacroiliitis, not elsewhere classified Cervical stenosis of spinal canal Spinal stenosis in cervical region Cervical spondylosis without myelopathy documented in this encounter [facility]* Diagnosis Post laminectomy syndrome Postlaminectomy syndrome, unspecified region Lumbar radiculopathy Thoracic or lumbosacral neuritis or radiculitis, unspecified Lumbar spondylosis Lumbosacral spondylosis without myelopathy [facility]* Diagnosis Medicare annual wellness visit, subsequent- Primary Routine general medical examination at a health care facility Screening for colon cancer Special screening for malignant neoplasms, colon [facility] [place] [facility]* Diagnosis Post laminectomy syndrome- Primary Postlaminectomy syndrome, unspecified region Lumbar radiculopathy Thoracic or lumbosacral neuritis or radiculitis, unspecified documented in this encounter [facility] [place] note* Diagnosis Trigeminal neuralgia- Primary documented in this encounter [facility] [place] note* Diagnosis 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, unspecified Post laminectomy syndrome Postlaminectomy syndrome, unspecified region Lumbar radiculopathy Thoracic or lumbosacral neuritis or radiculitis, unspecified Lumbar spondylosis Lumbosacral spondylosis without myelopathy Encounter for long-term use of opiate analgesic Encounter for long-term (current) use of other medications Sacroiliitis (HCC) Sacroiliitis, not elsewhere classified Cervical stenosis of spinal canal Spinal stenosis in cervical region Cervical spondylosis without myelopathy documented in this encounter [facility] note* Diagnosis Trigeminal neuralgia- Primary Type 2 diabetes mellitus with peripheral neuropathy (HCC) Primary hypertension Unspecified essential hypertension documented in this encounter [facility] note* Diagnosis Post laminectomy syndrome Postlaminectomy syndrome, unspecified region Lumbar radiculopathy Thoracic or lumbosacral neuritis or radiculitis, unspecified Lumbar spondylosis Lumbosacral spondylosis without myelopathy documented in this encounter [facility] note* Diagnosis Post laminectomy syndrome- Primary Postlaminectomy syndrome, unspecified region documented in this encounter [facility] note* Diagnosis Post laminectomy syndrome- Primary Postlaminectomy syndrome, unspecified region Lumbar radiculopathy Thoracic or lumbosacral neuritis or radiculitis, unspecified documented in this encounter [facility] note* Diagnosis Primary hypertension- Primary Unspecified essential hypertension Hypokalemia Hypopotassemia documented in this encounter [facility] note* Diagnosis Encounter for long-term use of opiate analgesic- Primary Encounter for long-term (current) use of other medications Post laminectomy syndrome Postlaminectomy syndrome, unspecified region Lumbar radiculopathy Thoracic or lumbosacral neuritis or radiculitis, unspecified Lumbar spondylosis Lumbosacral spondylosis without myelopathy documented in this encounter [facility] note* Diagnosis Type 2 diabetes mellitus 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)- Primary Type II or unspecified type diabetes mellitus without mention of complication, not stated as uncontrolled Hypertension, essential Unspecified essential hypertension Neck pain Cervicalgia OAB (overactive bladder) Hypertonicity of bladder Essential tremor Essential and other specified forms of tremor Moderate persistent asthma, uncomplicated Unspecified asthma Trigeminal neuralgia Sacroiliitis (HCC) Sacroiliitis, not elsewhere classified Type 2 diabetes mellitus with peripheral neuropathy (HCC) documented in this encounter [facility] [place] note* Diagnosis Trigeminal neuralgia documented in this encounter [facility] [place] note* Diagnosis Moderate persistent asthma, uncomplicated Unspecified asthma documented in this encounter [facility] note* Diagnosis Dyslipidemia Other and unspecified hyperlipidemia documented in this encounter [facility] note* Diagnosis Pain medication agreement signed- Primary Encounter for long-term (current) use of other medications Encounter for long-term use of opiate analgesic Encounter for long-term (current) use of other medications Post laminectomy syndrome Postlaminectomy syndrome, unspecified region Lumbar spondylosis Lumbosacral spondylosis without myelopathy documented in this encounter [facility] note* Diagnosis Post laminectomy syndrome Postlaminectomy syndrome, unspecified region Lumbar spondylosis Lumbosacral spondylosis without myelopathy documented in this encounter [facility] note* Diagnosis Hypertension, essential Unspecified essential hypertension documented in this encounter [facility] note* Diagnosis Acute pain of right knee documented in this encounter [facility] note* Diagnosis Acute pain of right knee- Primary documented in this encounter [facility] [place] note* Diagnosis Post laminectomy syndrome Postlaminectomy syndrome, unspecified region documented in this encounter [facility] [place] note* Diagnosis Patellar subluxation, right, initial encounter- Primary Acute pain of right knee documented in this encounter [facility] note* Diagnosis Hypokalemia Hypopotassemia Primary hypertension Unspecified essential hypertension documented in this encounter [facility] note* Diagnosis Acute pain of right knee documented in this encounter [facility] [place] note* Diagnosis Acute pain of right knee- Primary documented in this encounter [facility] [place] note* Diagnosis Post laminectomy syndrome- Primary Postlaminectomy syndrome, unspecified region documented in this encounter [facility] note* Diagnosis Pain in patella, unspecified laterality- Primary documented in this encounter [facility] [place] [facility]* Diagnosis Encounter for long-term use of opiate analgesic- Primary Encounter for long-term (current) use of other medications Post laminectomy syndrome Postlaminectomy syndrome, unspecified region Anxiety due to invasive procedure documented in this encounter [facility] note* Diagnosis Acute pain of right knee- Primary documented in this encounter [facility] note* Diagnosis Post laminectomy syndrome Postlaminectomy syndrome, unspecified region documented in this encounter [facility] [place] [facility]* Diagnosis Post laminectomy syndrome Postlaminectomy syndrome, unspecified region documented in this encounter [facility] [place] [facility]* Diagnosis Hot flashes Symptomatic menopausal or female climacteric states documented in this encounter [facility] [place] [facility]* Diagnosis Post laminectomy syndrome- Primary Postlaminectomy syndrome, unspecified region documented in this encounter [facility] [place] [facility]* Diagnosis Type 2 diabetes mellitus with peripheral neuropathy (HCC)- Primary Screening for diabetic retinopathy Screening for other eye conditions Primary hypertension Unspecified essential hypertension Depression screen Screening for depression Mild persistent asthma without complication Unspecified asthma documented in this encounter [facility] [place] [facility]* Diagnosis Hypokalemia Hypopotassemia Primary hypertension Unspecified essential hypertension documented in this encounter [facility] [place] [facility]* Diagnosis Lumbar radiculopathy- Primary Thoracic or lumbosacral neuritis or radiculitis, unspecified documented in this encounter [facility] [place] [facility]* Diagnosis Dyslipidemia Other and unspecified hyperlipidemia documented in this encounter [facility] [place] note* Diagnosis Encounter for long-term use of opiate analgesic- Primary Encounter for long-term (current) use of other medications Lumbar radiculopathy Thoracic or lumbosacral neuritis or radiculitis, unspecified Post laminectomy syndrome Postlaminectomy syndrome, unspecified region documented in this encounter [facility] [place] [facility]* Diagnosis Medicare annual wellness visit, subsequent- Primary Routine general medical examination at a health care facility Type 2 diabetes mellitus 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) Type II or unspecified type diabetes mellitus without mention of complication, not stated as uncontrolled Encounter for immunization Need for other specified prophylactic vaccination against single bacterial disease Need for influenza vaccination Need for prophylactic vaccination and inoculation against influenza documented in this encounter [facility] [place] [facility]* Diagnosis Type 2 diabetes mellitus with peripheral neuropathy (HCC)- Primary Hypertension, unspecified type Pseudophakia Lens replaced by other means Dry eye syndrome of both eyes Posterior vitreous detachment, bilateral Refractive error Unspecified disorder of refraction and accommodation documented in this encounter [facility] [place] [facility]* Diagnosis Hot flashes Symptomatic menopausal or female climacteric states documented in this encounter [facility] [place] [facility]* Diagnosis Pain of hand, unspecified laterality- Primary Left hand pain Pain in limb documented in this encounter [facility] [place] [facility]* Diagnosis Encounter for long-term use of opiate analgesic- Primary Encounter for long-term (current) use of other medications Lumbar radiculopathy Thoracic or lumbosacral neuritis or radiculitis, unspecified Post laminectomy syndrome Postlaminectomy syndrome, unspecified region documented in this encounter [facility] note* Diagnosis Hypokalemia Hypopotassemia Primary hypertension Unspecified essential hypertension documented [facility] this encounter [facility] [place] note* Diagnosis Mild persistent asthma without complication- Primary Unspecified asthma documented in this encounter [facility] [place] note* Diagnosis Mild persistent asthma without complication- Primary Unspecified asthma documented in this encounter [facility] [place] [facility]* Diagnosis Left hand pain Pain in limb documented in this encounter [facility] [place] [facility]* Diagnosis Primary hypertension- Primary Unspecified essential hypertension Type 2 diabetes mellitus with peripheral neuropathy (HCC) Impaired memory Memory loss documented in this encounter [facility] [place] note* Diagnosis Arthritis of carpometacarpal (CMC) joint of left thumb- Primary Arthritis of [id number] joint of left hand 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 [facility] [place] [facility] Diagnosis Lumbar radiculopathy- Primary Thoracic or lumbosacral neuritis or radiculitis, unspecified Post laminectomy syndrome Postlaminectomy syndrome, unspecified region Encounter for long-term use of opiate analgesic Encounter for long-term (current) use of other medications [facility] [place] [facility]* Diagnosis Subjective memory complaints- Primary Memory loss Encounter for geriatric assessment documented in this encounter [facility] note* Diagnosis Hypertension, essential Unspecified essential hypertension documented [facility] this [facility] [place] [facility]* Diagnosis Lumbar radiculopathy- Primary Thoracic or lumbosacral neuritis or radiculitis, unspecified Anxiety due to invasive procedure documented [facility] this encounter [facility] [place] [facility]* Diagnosis Encounter for long-term use of opiate analgesic- Primary Encounter for long-term (current) use of other medications Post laminectomy syndrome Postlaminectomy syndrome, unspecified region Lumbar radiculopathy Thoracic or lumbosacral neuritis or radiculitis, unspecified documented in this encounter [facility] note* Diagnosis Hypokalemia Hypopotassemia Primary hypertension Unspecified essential hypertension documented [facility] this [facility] [place] [facility]* Diagnosis Lumbar radiculopathy- Primary Thoracic or lumbosacral neuritis or radiculitis, unspecified documented in this encounter [facility] [place] [facility]* Diagnosis Hypokalemia Hypopotassemia Primary hypertension Unspecified essential hypertension Lumbar radiculopathy- Primary Thoracic or lumbosacral neuritis or radiculitis, unspecified Post laminectomy syndrome Postlaminectomy syndrome, unspecified region documented in this encounter [facility] [place] [facility]* Diagnosis Lumbar radiculopathy- Primary Thoracic or lumbosacral neuritis or radiculitis, unspecified Post laminectomy syndrome Postlaminectomy syndrome, unspecified region documented in this encounter [facility] [place] [facility]* Diagnosis Dyslipidemia Other and unspecified hyperlipidemia documented in this encounter [facility] [place] [facility]* Diagnosis Hot flashes Symptomatic menopausal or female climacteric states documented in this encounter [facility] [place] [facility]* Diagnosis Chronic pain of right knee- Primary Synovial cyst of right popliteal space Synovial cyst of popliteal space Primary osteoarthritis of right knee Primary localized osteoarthrosis, lower leg [facility]* Diagnosis Type 2 diabetes mellitus 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)- Primary Type II or unspecified type diabetes mellitus without mention of complication, not stated as uncontrolled Primary hypertension Unspecified essential hypertension Synovial cyst of right popliteal space Synovial cyst of popliteal space Chronic pain of right knee Mixed hyperlipidemia documented in this encounter [facility] [place] [facility]* Diagnosis Hypertension, essential Unspecified essential hypertension Primary hypertension Unspecified essential hypertension documented in this encounter [facility] [place] [facility]* Diagnosis Hypertension, essential Unspecified essential hypertension documented in this encounter [facility] [place] [facility]* Diagnosis Encounter for long-term use of opiate analgesic- Primary Encounter for long-term (current) use of other medications Greater trochanteric bursitis, left Post laminectomy syndrome Postlaminectomy syndrome, unspecified region Lumbar radiculopathy Thoracic or lumbosacral neuritis or radiculitis, unspecified documented [facility] [place] [facility]* Diagnosis Chronic pain of right knee- Primary Synovial cyst of right popliteal space Synovial cyst of popliteal space Primary osteoarthritis of right knee Primary localized osteoarthrosis, lower leg [facility]* Diagnosis Greater trochanteric bursitis, left- Primary documented in this encounter [facility] [place] [facility]* Diagnosis Type 2 diabetes mellitus 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)- Primary Type II or unspecified type diabetes mellitus without mention of complication, not stated as uncontrolled Primary hypertension Unspecified essential hypertension Dyslipidemia Other and unspecified hyperlipidemia Type 2 diabetes mellitus with diabetic peripheral angiopathy without gangrene, without long-term current use of insulin (HCC) documented in this encounter [facility] [place] [facility]* Diagnosis Superior oblique palsy, left- Primary Type 2 diabetes mellitus 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) Type II or unspecified type diabetes mellitus without mention of complication, not stated as uncontrolled Dry eye syndrome of both eyes Refractive error Unspecified disorder of refraction and accommodation documented in this encounter [facility] note* Diagnosis Pain in left hip Pain in joint, pelvic region and thigh Pain in right hip Pain in joint, pelvic region and thigh documented in this encounter [facility] note* Diagnosis Primary osteoarthritis of left hip- Primary Primary localized osteoarthrosis, pelvic region and thigh Post laminectomy syndrome Postlaminectomy syndrome, unspecified region Lumbar spondylosis Lumbosacral spondylosis without myelopathy Pain in left hip Pain in joint, pelvic region and thigh Pain in right hip Pain in joint, pelvic region and thigh Lumbar radiculopathy Thoracic or lumbosacral neuritis or radiculitis, unspecified Encounter for long-term use of opiate analgesic Encounter for long-term (current) use of other medications documented in this encounter [facility] note* Diagnosis Ophthalmoplegia- Primary Unspecified disorder of eye movements documented in this encounter [facility] note* Diagnosis 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 documented in this encounter [facility] [place] [facility]* Diagnosis Chronic pain of right knee- Primary Synovial cyst of right popliteal space Synovial cyst of popliteal space Primary osteoarthritis of right knee Primary localized osteoarthrosis, lower leg 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 documented in this encounter [facility] [place] [facility]* Diagnosis Acute cough- Primary documented [facility] this [facility]* Diagnosis Type 2 diabetes mellitus 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) Type II or unspecified type diabetes mellitus without mention of complication, not stated as uncontrolled documented in this encounter [facility] [place] [facility]* Diagnosis Hypertension, essential Unspecified essential hypertension Hypokalemia Hypopotassemia Primary hypertension Unspecified essential hypertension documented in this encounter [facility] [place] [facility]* Diagnosis Hypokalemia Hypopotassemia Primary hypertension Unspecified essential hypertension documented in this encounter [facility] [place] [facility]* Diagnosis Ophthalmoplegia Unspecified disorder of eye movements documented in this encounter [facility] [place] [facility]* Diagnosis Primary osteoarthritis of left hip- Primary Primary localized osteoarthrosis, pelvic region and thigh documented in this encounter [facility] for referral (narrative)* Outpatient Procedure (Routine) - Pending Review Specialty Diagnoses / Procedures [facility] To [facility] Diagnoses Chest pain, unspecified type Procedures ECHO TTE W/DOPPLER, Anjel Mcnally MD [address] [address] Referral ID Status Reason Start Date Expiration Date Visits Requested Visits Authorized [id number] Pending Review Auto-Generat ed Referral 04/09/2022 1 1 [facility] for referral (narrative)* Outpatient Procedure (Routine) - Closed Specialty Diagnoses / Procedures [facility] To Contact [facility] Diagnoses Chest pain, unspecified type Procedures ECHO TTE W/DOPPLER, Anjel Mcnally MD [address] [address] Referral ID Status Reason Start Date Expiration Date V isits Requested Visits Authorized [id number] Closed Auto-Generate d Referral 04/09/2021 04/09/2022 1 1 [facility] for referral (narrative)* Diagnostic Procedure Only (Routine) - Pending Review Specialty Diagnoses / Procedures [facility] To Contact MOLECULAR & FUNCTIONAL IMAGING Diagnoses Other chest pain ACS (acute coronary syndrome) (HCC) Procedures NM CARDIAC PERF STRESS/PHARM MYOCARDIAL SPECT MULTIPLE STUDIES Betty Bueno MD [address] [place] [address] Molecular & Functional Imaging [address] [place] [address] Referral ID Status Reason Start Date Expiration Date Visits Requested Visits Authorized [id number] Pending Review Auto-Generat ed Referral 05/18/2021 06/17/2022 1 1 [facility] for referral (narrative)* Diagnostic Procedure Only (Routine) - Closed Specialty Diagnoses / Procedures Referred By Contac t Referred To Contact MOLECULAR & FUNCTIONAL IMAGING Diagnoses Other chest pain ACS (acute coronary syndrome) (HCC) Procedures NM CARDIAC PERF STRESS/PHARM MYOCARDIAL SPECT MULTIPLE STUDIES Betty Bueno MD 1 [place] [address] Molecular & Functional Imaging [address] [place] [address] Referral ID Status Reason Start Date Expiration Date V isits Requested Visits Authorized [id number] Closed Auto-Generate d Referral 05/18/2021 06/17/2022 1 1 [facility] for referral (narrative)* Diagnostic Procedure Only (Routine) - Pending Review Specialty Diagnoses / Procedures Referred By Contac t Referred To Contact XR IMAGING Diagnoses Neck pain Procedures XR CERV GENERAL 2V AP/LAT RADEX SPINE CERVICAL 2 OR 3 VIEWS Priscilla Telles MD [address] [place] [address] Xr Imaging Referral ID Status Reason Start Date Expiration Date Visits Requested Visits Authorized [id number] Pending Review Auto-Generat ed Referral 10/16/2021 11/07/2022 1 1 * - Pending Review Specialty Diagnoses / Procedures Referred By Contac t Referred To Contact Physical Therapy Diagnoses Chronic left shoulder pain Neck pain Procedures CONSULT TO PHYSICAL THERAPY Priscilla Telles MD [address] [place] [address] Referral ID Status Reason Start Date Expiration Date V isits Requested Visits Authorized [id number] Pending Review 10/08/2021 01/06/2022 1 1 [facility] for referral (narrative)* Diagnostic Procedure Only (Routine) - Closed Specialty Diagnoses / Procedures Referred By Contac t Referred To Contact XR IMAGING Diagnoses Neck pain Procedures XR CERV OTHER 4V AP/LAT/OBL RADEX SPINE CERVICAL 4 OR 5 VIEWS Betty Bueno MD [address] [address] Xr Imaging Referral ID Status Reason Start Date Expiration Date V isits Requested Visits Authorized [id number] Closed Auto-Generate d Referral 07/26/2022 08/25/2023 1 1 [facility] for referral (narrative)* Outpatient Procedure (Routine) - Authorized Specialty Diagnoses / Procedures Referred By Contac t Referred To Contact [facility] Diagnoses Moderate persistent asthma, uncomplicated Procedures SPIROMETRY - BASELINE AND POST DILATOR BRNCDILAT RSPSE SPMTRY PRE&POST-BRNCDILAT ADMN Betty Bueno MD [address] [address] [facility] [place] [address] [place] [address] Referral ID Status Reason Start Date Expiration Date Visits Requested Visits Authorized [id number] Authorized Auto-Generat ed Referral 05/30/2023 06/28/2024 1 1 [facility] for referral (narrative)* Diagnostic Procedure Only (Routine) - New Request Specialty Diagnoses / Procedures Referred By Contac t Referred To Contact XR IMAGING Diagnoses Left hand pain Procedures XR WRIST GENERAL 3V PA/LAT/OBL LEFT RADEX WRIST COMPLETE MINIMUM 3 VIEWS Betty Bueno MD [address] [address] [place] [address] Referral ID Status Reason Start Date Expiration Date Visits Requested Visits Authorized [id number] New Request Auto-Generat ed Referral 4 03/21/2025 1 1 * Diagnostic Procedure Only (Routine) - New Request Specialty Diagnoses / Procedures Referred By Contac t Referred To Contact XR IMAGING Diagnoses Left hand pain Procedures XR HAND GENERAL 3V PA/LAT/OBL LEFT RADEX HAND MINIMUM 3 VIEWS Betty Bueno MD [address] [place] [address] [place] [address] Referral ID Status Reason Start Date Expiration Date Visits Requested Visits Authorized [id number] New Request Auto-Generat ed Referral 03/21/2025 1 1 * Consult, Test, Treat (Routine) - Authorized Specialty Diagnoses / Procedures Referred By Contac t Referred To Contact Orthopedics Diagnoses Pain of hand, unspecified laterality Left hand pain Procedures CONSULT TO ORTHOPAEDICS OFFICE/OUTPATIENT NEW HIGH MDM 60 MINUTES Betty Bueno MD [address] [place] [address] Shahid Shell MD [address] [facility] [address] [place] [address] Referral ID Status Reason Start Date Expiration Date Visits Requested Visits Authorized [id number] Authorized PCP Requested Referral 4 05/20/2024 1 1 [facility] for referral (narrative)* Diagnostic Procedure Only (Routine) - Closed Specialty Diagnoses / Procedures Referred By Contac t Referred To Contact XR IMAGING Diagnoses Left hand pain Procedures XR WRIST GENERAL 3V PA/LAT/OBL LEFT RADEX WRIST COMPLETE MINIMUM 3 VIEWS Betty Bueno MD [address] [place] [address] Xr Imaging [facility] Referral ID Status Reason Start Date Expiration Date V isits Requested Visits Authorized [id number] Closed Auto-Generate d Referral 02/20/2024 03/21/2025 1 1 * Diagnostic Procedure Only (Routine) - Closed Specialty Diagnoses / Procedures Referred By Contac t Referred To Contact XR IMAGING Diagnoses Left hand pain Procedures XR HAND GENERAL 3V PA/LAT/OBL LEFT RADEX HAND MINIMUM 3 VIEWS Betty Bueno MD [address] [address] Xr Imaging [facility] Referral ID Status Reason Start Date Expiration Date V isits Requested Visits Authorized [id number] Closed Auto-Generate d Referral 02/20/2024 03/21/2025 1 1 [facility] for visit Narrative* Outpatient Procedure (Routine) - Closed Specialty Diagnoses / Procedures [facility] Diagnoses Chest pain, unspecified type Procedures ECHO TTE W/DOPPLER, COMPLETE Anjel Nguyen MD [address] [address] [facility] [place] [address] [place] [id number] Referral ID Status Reason Start Date Expiration Date V isits Requested Visits Authorized [id number] Closed Auto-Generate d Referral 04/09/2021 04/09/2022 1 1 [facility] for visit Narrative* Diagnostic Procedure Only (Routine) - Closed Specialty Diagnoses / Procedures [facility] Referred To Contact MOLECULAR & FUNCTIONAL IMAGING Diagnoses Other chest pain ACS (acute coronary syndrome) (HCC) Procedures NM CARDIAC PERF STRESS/PHARM MYOCARDIAL SPECT MULTIPLE STUDIES Betty Bueno MD [address] [address] Molecular & Functional Imaging [address] [id number] Referral ID Status Reason Start Date Expiration Date V isits Requested Visits Authorized [id number] Closed Auto-Generate d Referral 05/18/2021 06/17/2022 1 1 [facility] for visit Narrative* Diagnostic Procedure Only (Routine) - Closed Specialty Diagnoses / Procedures Referred By Contac t Referred To Contact XR IMAGING Diagnoses Acute pain of right knee Procedures XR KNEE SURVEY ARTHRITIS 1V AP BILATERAL RADIOLOGIC EXAM BOTH KNEES STANDING ANTEROPOST Betty Bueno MD 1 [facility] [address] [place] [address] [place] [address] Referral ID Status Reason Start Date Expiration Date V isits Requested Visits Authorized [id number] Closed Auto-Generate d Referral 07/13/2023 08/11/2024 1 1 [facility] for visit Narrative* Diagnostic Procedure Only (Routine) - Closed Specialty Diagnoses / Procedures Referred By Contac t Referred To Contact XR IMAGING Diagnoses Left hand pain Procedures XR WRIST GENERAL 3V PA/LAT/OBL LEFT RADEX WRIST COMPLETE MINIMUM 3 VIEWS Betty Bueno MD 1 [facility] [address] [place] [address] [place] [address] Referral ID Status Reason Start Date Expiration Date V isits Requested Visits Authorized [id number] Closed Auto-Generate d Referral 02/20/2024 03/21/2025 1 1 [facility] for visit Narrative* Diagnostic Procedure Only (Routine) - Closed Specialty Diagnoses / Procedures Referred By Contac t Referred To Contact XR IMAGING Diagnoses Pain in left hip Pain in right hip Procedures XR HIP BILATERAL 5V PEL/AP/LAT EACH HIP RADEX HIPS BILATERAL WITH PELVIS MINIMUM 5 VIEWS Marcial Brooks, ROMEL.MULTIPLE SLIDE OPERATOR [address] [place] [address] Phone: tel: fax: [place] [address] Referral ID Status Reason Start Date Expiration Date V isits Requested Visits Authorized [id number] Closed Auto-Generate d Referral 11/12/2024 12/12/2025 1 1 [facility] for visit Narrative* MRI/CT (Routine) - Closed Specialty Diagnoses / Procedures Referred By Contac t Referred To Contact MR IMAGING Diagnoses Ophthalmoplegia Procedures MRI BRAIN WO/W IVCON MRI BRAIN BRAIN STEM W/O W/CONTRAST MATERIAL Betty Bueno MD [address] [facility] [employer] [address] [place] [address] Phone: tel: fax: [place] [id number] Referral ID Status Reason Start Date Expiration Date V isits Requested Visits Authorized [id number] Closed Auto-Generate d Referral 11/15/2024 12/15/2025 1 1 [facility] Summary Purpose Family History No Family History Records FoundNo Family History Records FoundNo Family History Records FoundNo Family History Records Found Advance Directives No Advanced Directives Records FoundDocuments on File Type Date Recorded Patient Skilled Labor Expl anation Advance Directive(s) 11/07/2020 11:30 AM Documents on File Type Date Recorded Patient Skilled Labor Expl anation Advance Directive(s) 11/07/2020 11:30 AM Documents on File Type Date Recorded Patient Skilled Labor Expl anation Advance Directive(s) 04/01/2021 11:21 AM Advance Directive(s) 11/07/2020 11:30 AM Documents on File Type Date Recorded Patient Skilled Labor Expl anation Advance Directive(s) 04/01/2021 11:21 AM Advance Directive(s) 11/07/2020 11:30 AM Reason for Referral Status Reason Specialty Diagnoses / Procedures Referred By Contact Referred To Contact Ref Not Required PCP Requested Referral Pain Management Diagnoses Chronic pain syndrome Procedures CONSULT TO PAIN MGT Betty Bueno MD [address] [facility] [address] [place] [address] Status Reason Specialty Diagnoses / Procedures Referred By Contact Referred To Contact Pending Review PCP Requested Referral Ophthalmology Diagnoses Screening for diabetic retinopathy Procedures CONSULT TO OPHTHALMOLOGY NEW PATIENT VISIT LEVEL 5 Betty Bueno MD 1 [facility] [place] [address] [place] [address] Status Reason Specialty Diagnoses / Procedures Referred By Contact Referred To Contact Pending Review PCP Requested Referral PULM COVID RECOV [facility] Diagnoses Fatigue, unspecified type Procedures CONSULT TO [facility] Betty Bueno MD [address] [place] [address] Pulm Covid Recov [facility] [address] [place] [address] Specialty Diagnoses / Procedures Referred By Contac t Referred To Contact Orthopedics Diagnoses Chronic left shoulder pain Procedures CONSULT TO ORTHOPAEDICS OFFICE/OUTPATIENT [facility] 60-74 MINUTES Betty Bueno MD [address] [facility] [employer] [address] [place] [address] Referral ID Status Reason Start Date Expiration Date Visits Requested Visits Authorized [id number] Pending Review PCP Requested Referral 08/28/2021 08/28/2022 1 1 Specialty Diagnoses / Procedures Referred By Contac t Referred To Contact MR IMAGING Diagnoses Chronic left shoulder pain Procedures MRI SHOULDER WO IVCON LT MRI ANY JT UPPER EXTREMITY W/O CONTRAST Priscilla Peña MD [address] [facility] [place] [address] Mr Imaging Referral ID Status Reason Start Date Expiration Date Visits Requested Visits Authorized [id number] Authorized Auto-Generat ed Referral 09/10/2021 10/10/2022 1 1 Referral ID Status Reason Start Date Expiration Date V isits Requested Visits Authorized [id number] Closed Auto-Generate d Referral 09/10/2021 10/10/2022 1 1 Specialty Diagnoses / Procedures Referred By Contac t Referred To Contact Neurology Diagnoses Involuntary movements Procedures CONSULT TO NEUROLOGY OFFICE/OUTPATIENT [facility] 60-74 MINUTES Betty Bueno MD [address] [facility] [address] [place] [address] Referral ID Status Reason Start Date Expiration Date Visits Requested Visits Authorized [id number] Pending Review PCP Requested Referral 10/09/2021 10/09/2022 1 1 Specialty Diagnoses / Procedures Referred By Contac t Referred To Contact Neurosurgery Diagnoses Foraminal stenosis of cervical region Atrophy of muscle of hand, unspecified laterality Procedures CONSULT TO NEUROSURGERY OFFICE/OUTPATIENT [facility] 60-74 MINUTES Betty Bueno MD [address] [facility] [address] [place] [address] Referral ID Status Reason Start Date Expiration Date Visits Requested Visits Authorized [id number] Pending Review PCP Requested Referral 08/06/2022 08/06/2023 1 1 Specialty Diagnoses / Procedures Referred By Contac t Referred To Contact MR IMAGING Diagnoses Spondylolysis of cervical region Spinal stenosis of cervical region Procedures MRI CERVICAL SPINE WO IVCON MRI SPINAL CANAL CERVICAL W/O CONTRAST MATRL Vickie Tiwari, DESK CLERK.MULTIPLE SLIDE OPERATOR [address] [facility] [address] Mr Imaging Referral ID Status Reason Start Date Expiration Date Visits Requested Visits Authorized [id number] Authorized Auto-Generat ed Referral 08/13/2022 09/12/2023 1 1 Referral ID Status Reason Start Date Expiration Date V isits Requested Visits Authorized [id number] Closed Auto-Generate d Referral 08/13/2022 09/12/2023 1 1 Specialty Diagnoses / Procedures Referred By Contac t Referred To Contact Diagnoses Post laminectomy syndrome Lumbar radiculopathy Lumbar spondylosis Bekah Cintron MD [address] [facility] [address] [place] [address] Referral ID Status Reason Start Date Expiration Date Visits Re quested Visits Authorized [id number] Closed 1 1 Specialty Diagnoses / Procedures Referred By Contac t Referred To Contact [facility] Diagnoses Acute pain of right knee Procedures CONSULT TO PHYSICAL THERAPY PHYSICAL THERAPY EVALUATION HIGH COMPLEX 45 MINS Betty Bueno MD 1 [place] [facility] [address] [place] [address] [facility] [place] [address] [place] [address] Referral ID Status Reason Start Date Expiration Date Visits Requested Visits Authorized [id number] Pending Review Auto-Generat ed Referral 07/13/2023 07/12/2024 1 1 Specialty Diagnoses / Procedures Referred By Contac t Referred To Contact XR IMAGING Diagnoses Acute pain of right knee Procedures XR KNEE SURVEY ARTHRITIS 1V AP BILATERAL RADIOLOGIC EXAM BOTH KNEES STANDING ANTEROPOST Betty Bueno MD 1 [facility] [address] [place] [address] [place] [address] Referral ID Status Reason Start Date Expiration Date V isits Requested Visits Authorized [id number] Closed Auto-Generate d Referral 07/13/2023 08/11/2024 1 1 Specialty Diagnoses / Procedures Referred By Contac t Referred To Contact XR IMAGING Diagnoses Acute pain of right knee Procedures XR KNEE GENERAL 4V AP BOTH/PA BOTH/LAT/MERC RIGHT RADIOLOGIC EXAM KNEE COMPLETE 4/MORE VIEWS Betty Bueno MD [address] [address] [place] [address] Referral ID Status Reason Start Date Expiration Date V isits Requested Visits Authorized [id number] Closed Auto-Generate d Referral 07/13/2023 08/11/2024 1 1 Specialty Diagnoses / Procedures Referred By Contac t Referred To Contact Orthopedics Diagnoses Patellar subluxation, right, initial encounter Acute pain of right knee Procedures CONSULT TO ORTHOPAEDICS OFFICE/OUTPATIENT [facility] 60 MINUTES Betty Bueno MD [address] [address] Referral ID Status Reason Start Date Expiration Date Visits Requested Visits Authorized [id number] Authorized PCP Requested Referral 08/08/2023 08/07/2024 1 1 Specialty Diagnoses / Procedures Referred By Contac t Referred To Contact Orthopedics Diagnoses Pain in patella, unspecified laterality Procedures CONSULT TO ORTHOPAEDICS OFFICE/OUTPATIENT [facility] 60 MINUTES Betty Bueno MD [address] [address] Referral ID Status Reason Start Date Expiration Date Visits Requested Visits Authorized [id number] Authorized PCP Requested Referral 09/23/2023 09/22/2024 1 1 Specialty Diagnoses / Procedures Referred By Contac t Referred To Contact Ophthalmology Diagnoses Screening for diabetic retinopathy Type 2 diabetes mellitus with peripheral neuropathy (HCC) Procedures CONSULT TO OPHTHALMOLOGY OFFICE/OUTPATIENT [facility] 60 MINUTES [facility] [address] [place] [address] Referral ID Status Reason Start Date Expiration Date Visits Requested Visits Authorized [id number] Authorized PCP Requested Referral 10/24/2023 10/23/2024 1 1 Specialty Diagnoses / Procedures Referred By Contac t Referred To Contact Diagnoses Medicare annual wellness visit, subsequent Procedures CONSULT TO CLOTH DOUBLING MACHINE OPERATOR (AG IMCA/CFM ONLY) Betty Bueno MD 1 [facility] [address] [place] [address] Referral ID Status Reason Start Date Expiration Date Visits Requested Visits Authorized [id number] Ref Not Required PCP Requested Referral 01/02/2024 04/01/2024 1 1 Specialty Diagnoses / Procedures Referred By Contac t Referred To Contact Gerontology Diagnoses Impaired memory Procedures CONSULT TO GERIATRICS OFFICE/OUTPATIENT [facility] 60 MINUTES Betty Bueno MD 1 [facility] [address] [place] [address] Referral ID Status Reason Start Date Expiration Date Visits Requested Visits Authorized [id number] Authorized PCP Requested Referral 04/11/2025 1 1 Specialty Diagnoses / Procedures Referred By Contac t Referred To Contact Diagnoses Arthritis of carpometacarpal (CMC) joint of left thumb Arthritis of akgvmdqs-naumfjurq-znxaqrrel joint of left hand 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 Procedures CONSULT TO OCCUPATIONAL THERAPY/HAND THERAPY (AG) Chuck Escobar PA-C [address] [facility] [address] [place] [address] Referral ID Status Reason Start Date Expiration Date Visits Requested Visits Authorized [id number] Authorized PCP Requested Referral 07/15/2024 1 1 Medications Administered Section Inactive Administered Medications - up to 3 most recent administrations Medication Order MAR Action Action Date Dose Rate Site bupivacaine (PF) 0.5 % (5 mg/mL) 5 mg injection 5 mg (1 mL), OTHER, ONCE, 1 dose, On Tue04/07/21 at 1630 Given by [facility] 04/07/2021 4:06 PM EST 5 mg iohexol 300 mg IV injection (OMNIPAQUE 300) 300 mg (1 mL), OTHER, ONCE, 1 dose, On Tue04/07/21 at 1630 Given by [facility] 04/07/2021 4:07 PM EST 300 mg lidocaine (PF) 20 mg/mL (2 %) 20 mg injection (XYLOCAINE) 20 mg (1 mL), OTHER, ONCE, 1 dose, On Tue04/07/21 at 1630 Given by [facility] 04/07/2021 4:07 PM EST 20 mg methylPREDNISolone acetate 40 mg injection (DEPO-Medrol) 40 mg, OTHER, ONCE, 1 dose, On Tue04/07/21 at 1630 Given by [facility] 04/07/2021 4:07 PM EST 40 mg Inactive Administered Medications - up to 3 most recent administrations Medication Order MAR Action Action Date Dose Rate Site iohexol 300 mg IV injection (OMNIPAQUE 300) 300 mg, OTHER, ONCE, 1 dose, On Tue11/26/21 at 1130 Given by [facility] 11/26/2021 11:40 AM EDT 300 mg lidocaine (PF) 20 mg/mL (2 %) 200 mg injection (XYLOCAINE) 200 mg (10 mL), OTHER, ONCE, 1 dose, On Tue11/26/21 at 1130 Given by [facility] 11/26/2021 11:39 AM EDT 200 mg lidocaine 10 mg/mL (1 %) 100 mg injection (XYLOCAINE) 100 mg, OTHER, ONCE, 1 dose, On [place] 11/26/21 at 1130 Given by [facility] 11/26/2021 11:38 AM EDT 100 mg methylPREDNISolone acetate 80 mg injection (DEPO-Medrol) 80 mg, OTHER, ONCE, 1 dose, On [place] 11/26/21 at 1130 Given by [facility] 11/26/2021 11:40 AM EDT 80 mg Inactive Administered Medications - up to 3 most recent administrations Medication Order MAR Action Action Date Dose Rate Site 0.9% NaCl 10 mL flush 10 mL, OTHER, ONCE, 1 dose, On Tue01/17/23 at 1400 Given by [facility] 01/17/2023 2:28 PM EDT 10 mL iohexol 300 mg IV injection (OMNIPAQUE 300) 300 mg, OTHER, ONCE, 1 dose, On Tue01/17/23 at 1400 Given by [facility] 01/17/2023 2:28 PM EDT 300 mg lidocaine (PF) 10 mg/mL (1 %) 100 mg injection (XYLOCAINE) 100 mg, OTHER, ONCE, 1 dose, On Tue01/17/23 at 1400 Given by [facility] 01/17/2023 2:28 PM EDT 100 mg methylPREDNISolone acetate 40 mg injection (DEPO-Medrol) 40 mg, OTHER, ONCE, 1 dose, On 01/17/23 at 1400 Given by [facility] 01/17/2023 2:29 PM EDT 40 mg Additional Source Comments Source Comments (unrecognize d section and content) In the event this informatio n is protected by the Federal Confidentiality of Alcohol and Drug Abuse Patient Records regulations: The Federal rules restrict any use of the information to criminally investigate or prosecute any alcohol or drug abuse patient.[facility]In the event this information is protected by the Federal Confidentiality of Alcohol and Drug Abuse Patient Records regulations: The Federal rules restrict any use of the information to criminally investigate or prosecute any alcohol or drug abuse patient.[facility] AndersonIn the event this information is protected by the Federal Confidentiality of Alcohol and Drug Abuse Patient Records regulations: The Federal rules restrict any use of the information to criminally investigate or prosecute any alcohol or drug abuse patient.[facility] AndersonIn the event this information is protected by the Federal Confidentiality of Alcohol and Drug Abuse Patient Records regulations: The Federal rules restrict any use of the information to criminally investigate or prosecute any alcohol or drug abuse patient.[facility] AndersonIn the event this information is protected by the Federal Confidentiality of Alcohol and Drug Abuse Patient Records regulations: The Federal rules restrict any use of the information to criminally investigate or prosecute any alcohol or drug abuse patient.[facility] AndersonIn the event this information is protected by the Federal Confidentiality of Alcohol and Drug Abuse Patient Records regulations: The Federal rules restrict any use of the information to criminally investigate or prosecute any alcohol or drug abuse patient.[facility] AndersonIn the event this information is protected by the Federal Confidentiality of Alcohol and Drug Abuse Patient Records regulations: The Federal rules restrict any use of the information to criminally investigate or prosecute any alcohol or drug abuse patient.[facility] AndersonIn the event this information is protected by the Federal Confidentiality of Alcohol and Drug Abuse Patient Records regulations: The Federal rules restrict any use of the information to criminally investigate or prosecute any alcohol or drug abuse patient.[facility] AndersonIn the event this information is protected by the Federal Confidentiality of Alcohol and Drug Abuse Patient Records regulations: The Federal rules restrict any use of the information to criminally investigate or prosecute any alcohol or drug abuse patient.[facility] AndersonIn the event this information is protected by the Federal Confidentiality of Alcohol and Drug Abuse Patient Records regulations: The Federal rules restrict any use of the information to criminally investigate or prosecute any alcohol or drug abuse patient.[facility] AndersonIn the event this information is protected by the Federal Confidentiality of Alcohol and Drug Abuse Patient Records regulations: The Federal rules restrict any use of the information to criminally investigate or prosecute any alcohol or drug abuse patient.[facility] AndersonIn the event this information is protected by the Federal Confidentiality of Alcohol and Drug Abuse Patient Records regulations: The Federal rules restrict any use of the information to criminally investigate or prosecute any alcohol or drug abuse patient.[facility] AndersonIn the event this information is protected by the Federal Confidentiality of Alcohol and Drug Abuse Patient Records regulations: The Federal rules restrict any use of the information to criminally investigate or prosecute any alcohol or drug abuse patient.[facility] AndersonIn the event this information is protected by the Federal Confidentiality of Alcohol and Drug Abuse Patient Records regulations: The Federal rules restrict any use of the information to criminally investigate or prosecute any alcohol or drug abuse patient.[facility] AndersonIn the event this information is protected by the Federal Confidentiality of Alcohol and Drug Abuse Patient Records regulations: The Federal rules restrict any use of the information to criminally investigate or prosecute any alcohol or drug abuse patient.[facility] AndersonIn the event this information is protected by the Federal Confidentiality of Alcohol and Drug Abuse Patient Records regulations: The Federal rules restrict any use of the information to criminally investigate or prosecute any alcohol or drug abuse patient.[facility] AndersonIn the event this information is protected by the Federal Confidentiality of Alcohol and Drug Abuse Patient Records regulations: The Federal rules restrict any use of the information to criminally investigate or prosecute any alcohol or drug abuse patient.[facility] AndersonIn the event this information is protected by the Federal Confidentiality of Alcohol and Drug Abuse Patient Records regulations: The Federal rules restrict any use of the information to criminally investigate or prosecute any alcohol or drug abuse patient.[facility] AndersonIn the event this information is protected by the Federal Confidentiality of Alcohol and Drug Abuse Patient Records regulations: The Federal rules restrict any use of the information to criminally investigate or prosecute any alcohol or drug abuse patient.[facility] AndersonIn the event this information is protected by the Federal Confidentiality of Alcohol and Drug Abuse Patient Records regulations: The Federal rules restrict any use of the information to criminally investigate or prosecute any alcohol or drug abuse patient.[facility] AndersonIn the event this information is protected by the Federal Confidentiality of Alcohol and Drug Abuse Patient Records regulations: The Federal rules restrict any use of the information to criminally investigate or prosecute any alcohol or drug abuse patient.[facility] AndersonIn the event this information is protected by the Federal Confidentiality of Alcohol and Drug Abuse Patient Records regulations: The Federal rules restrict any use of the information to criminally investigate or prosecute any alcohol or drug abuse patient.[facility] AndersonIn the event this information is protected by the Federal Confidentiality of Alcohol and Drug Abuse Patient Records regulations: The Federal rules restrict any use of the information to criminally investigate or prosecute any alcohol or drug abuse patient.[facility] AndersonIn the event this information is protected by the Federal Confidentiality of Alcohol and Drug Abuse Patient Records regulations: The Federal rules restrict any use of the information to criminally investigate or prosecute any alcohol or drug abuse patient.[facility] AndersonIn the event this information is protected by the Federal Confidentiality of Alcohol and Drug Abuse Patient Records regulations: The Federal rules restrict any use of the information to criminally investigate or prosecute any alcohol or drug abuse patient.[facility] AndersonIn the event this information is protected by the Federal Confidentiality of Alcohol and Drug Abuse Patient Records regulations: The Federal rules restrict any use of the information to criminally investigate or prosecute any alcohol or drug abuse patient.[facility] AndersonIn the event this information is protected by the Federal Confidentiality of Alcohol and Drug Abuse Patient Records regulations: The Federal rules restrict any use of the information to criminally investigate or prosecute any alcohol or drug abuse patient.[facility] AndersonIn the event this information is protected by the Federal Confidentiality of Alcohol and Drug Abuse Patient Records regulations: The Federal rules restrict any use of the information to criminally investigate or prosecute any alcohol or drug abuse patient.[facility] AndersonIn the event this information is protected by the Federal Confidentiality of Alcohol and Drug Abuse Patient Records regulations: The Federal rules restrict any use of the information to criminally investigate or prosecute any alcohol or drug abuse patient.[facility] AndersonIn the event this information is protected by the Federal Confidentiality of Alcohol and Drug Abuse Patient Records regulations: The Federal rules restrict any use of the information to criminally investigate or prosecute any alcohol or drug abuse patient.[facility] AndersonIn the event this information is protected by the Federal Confidentiality of Alcohol and Drug Abuse Patient Records regulations: The Federal rules restrict any use of the information to criminally investigate or prosecute any alcohol or drug abuse patient.[facility] AndersonIn the event this information is protected by the Federal Confidentiality of Alcohol and Drug Abuse Patient Records regulations: The Federal rules restrict any use of the information to criminally investigate or prosecute any alcohol or drug abuse patient.[facility] AndersonIn the event this information is protected by the Federal Confidentiality of Alcohol and Drug Abuse Patient Records regulations: The Federal rules restrict any use of the information to criminally investigate or prosecute any alcohol or drug abuse patient.[facility] AndersonIn the event this information is protected by the Federal Confidentiality of Alcohol and Drug Abuse Patient Records regulations: The Federal rules restrict any use of the information to criminally investigate or prosecute any alcohol or drug abuse patient.[facility] AndersonIn the event this information is protected by the Federal Confidentiality of Alcohol and Drug Abuse Patient Records regulations: The Federal rules restrict any use of the information to criminally investigate or prosecute any alcohol or drug abuse patient.[facility] AndersonIn the event this information is protected by the Federal Confidentiality of Alcohol and Drug Abuse Patient Records regulations: The Federal rules restrict any use of the information to criminally investigate or prosecute any alcohol or drug abuse patient.[facility] AndersonIn the event this information is protected by the Federal Confidentiality of Alcohol and Drug Abuse Patient Records regulations: The Federal rules restrict any use of the information to criminally investigate or prosecute any alcohol or drug abuse patient.[facility] AndersonIn the event this information is protected by the Federal Confidentiality of Alcohol and Drug Abuse Patient Records regulations: The Federal rules restrict any use of the information to criminally investigate or prosecute any alcohol or drug abuse patient.[facility] AndersonIn the event this information is protected by the Federal Confidentiality of Alcohol and Drug Abuse Patient Records regulations: The Federal rules restrict any use of the information to criminally investigate or prosecute any alcohol or drug abuse patient.[facility] AndersonIn the event this information is protected by the Federal Confidentiality of Alcohol and Drug Abuse Patient Records regulations: The Federal rules restrict any use of the information to criminally investigate or prosecute any alcohol or drug abuse patient.[facility] AndersonIn the event this information is protected by the Federal Confidentiality of Alcohol and Drug Abuse Patient Records regulations: The Federal rules restrict any use of the information to criminally investigate or prosecute any alcohol or drug abuse patient.[facility] AndersonIn the event this information is protected by the Federal Confidentiality of Alcohol and Drug Abuse Patient Records regulations: The Federal rules restrict any use of the information to criminally investigate or prosecute any alcohol or drug abuse patient.[facility] AndersonIn the event this information is protected by the Federal Confidentiality of Alcohol and Drug Abuse Patient Records regulations: The Federal rules restrict any use of the information to criminally investigate or prosecute any alcohol or drug abuse patient.[facility] AndersonIn the event this information is protected by the Federal Confidentiality of Alcohol and Drug Abuse Patient Records regulations: The Federal rules restrict any use of the information to criminally investigate or prosecute any alcohol or drug abuse patient.[facility] AndersonIn the event this information is protected by the Federal Confidentiality of Alcohol and Drug Abuse Patient Records regulations: The Federal rules restrict any use of the information to criminally investigate or prosecute any alcohol or drug abuse patient.[facility] AndersonIn the event this information is protected by the Federal Confidentiality of Alcohol and Drug Abuse Patient Records regulations: The Federal rules restrict any use of the information to criminally investigate or prosecute any alcohol or drug abuse patient.[facility] AndersonIn the event this information is protected by the Federal Confidentiality of Alcohol and Drug Abuse Patient Records regulations: The Federal rules restrict any use of the information to criminally investigate or prosecute any alcohol or drug abuse patient.[facility] AndersonIn the event this information is protected by the Federal Confidentiality of Alcohol and Drug Abuse Patient Records regulations: The Federal rules restrict any use of the information to criminally investigate or prosecute any alcohol or drug abuse patient.[facility] AndersonIn the event this information is protected by the Federal Confidentiality of Alcohol and Drug Abuse Patient Records regulations: The Federal rules restrict any use of the information to criminally investigate or prosecute any alcohol or drug abuse patient.[facility] AndersonIn the event this information is protected by the Federal Confidentiality of Alcohol and Drug Abuse Patient Records regulations: The Federal rules restrict any use of the information to criminally investigate or prosecute any alcohol or drug abuse patient.[facility] AndersonIn the event this information is protected by the Federal Confidentiality of Alcohol and Drug Abuse Patient Records regulations: The Federal rules restrict any use of the information to criminally investigate or prosecute any alcohol or drug abuse patient.[facility] AndersonIn the event this information is protected by the Federal Confidentiality of Alcohol and Drug Abuse Patient Records regulations: The Federal rules restrict any use of the information to criminally investigate or prosecute any alcohol or drug abuse patient.[facility] AndersonIn the event this information is protected by the Federal Confidentiality of Alcohol and Drug Abuse Patient Records regulations: The Federal rules restrict any use of the information to criminally investigate or prosecute any alcohol or drug abuse patient.[facility] AndersonIn the event this information is protected by the Federal Confidentiality of Alcohol and Drug Abuse Patient Records regulations: The Federal rules restrict any use of the information to criminally investigate or prosecute any alcohol or drug abuse patient.[facility] AndersonIn the event this information is protected by the Federal Confidentiality of Alcohol and Drug Abuse Patient Records regulations: The Federal rules restrict any use of the information to criminally investigate or prosecute any alcohol or drug abuse patient.[facility] AndersonIn the event this information is protected by the Federal Confidentiality of Alcohol and Drug Abuse Patient Records regulations: The Federal rules restrict any use of the information to criminally investigate or prosecute any alcohol or drug abuse patient.[facility] AndersonIn the event this information is protected by the Federal Confidentiality of Alcohol and Drug Abuse Patient Records regulations: The Federal rules restrict any use of the information to criminally investigate or prosecute any alcohol or drug abuse patient.[facility] AndersonIn the event this information is protected by the Federal Confidentiality of Alcohol and Drug Abuse Patient Records regulations: The Federal rules restrict any use of the information to criminally investigate or prosecute any alcohol or drug abuse patient.[facility] AndersonIn the event this information is protected by the Federal Confidentiality of Alcohol and Drug Abuse Patient Records regulations: The Federal rules restrict any use of the information to criminally investigate or prosecute any alcohol or drug abuse patient.[facility] AndersonIn the event this information is protected by the Federal Confidentiality of Alcohol and Drug Abuse Patient Records regulations: The Federal rules restrict any use of the information to criminally investigate or prosecute any alcohol or drug abuse patient.[facility] AndersonIn the event this information is protected by the Federal Confidentiality of Alcohol and Drug Abuse Patient Records regulations: The Federal rules restrict any use of the information to criminally investigate or prosecute any alcohol or drug abuse patient.[facility] - AndersonIn the event this information is protected by the Federal Confidentiality of Alcohol and Drug Abuse Patient Records regulations: The Federal rules restrict any use of the information to criminally investigate or prosecute any alcohol or drug abuse patient.[facility] AndersonIn the event this information is protected by the Federal Confidentiality of Alcohol and Drug Abuse Patient Records regulations: The Federal rules restrict any use of the information to criminally investigate or prosecute any alcohol or drug abuse patient.[facility] AndersonIn the event this information is protected by the Federal Confidentiality of Alcohol and Drug Abuse Patient Records regulations: The Federal rules restrict any use of the information to criminally investigate or prosecute any alcohol or drug abuse patient.[facility] AndersonIn the event this information is protected by the Federal Confidentiality of Alcohol and Drug Abuse Patient Records regulations: The Federal rules restrict any use of the information to criminally investigate or prosecute any alcohol or drug abuse patient.[facility] AndersonIn the event this information is protected by the Federal Confidentiality of Alcohol and Drug Abuse Patient Records regulations: The Federal rules restrict any use of the information to criminally investigate or prosecute any alcohol or drug abuse patient.[facility] AndersonIn the event this information is protected by the Federal Confidentiality of Alcohol and Drug Abuse Patient Records regulations: The Federal rules restrict any use of the information to criminally investigate or prosecute any alcohol or drug abuse patient.[facility] AndersonIn the event this information is protected by the Federal Confidentiality of Alcohol and Drug Abuse Patient Records regulations: The Federal rules restrict any use of the information to criminally investigate or prosecute any alcohol or drug abuse patient.[facility] [place]In the event this information is protected by the Federal Confidentiality of Alcohol and Drug Abuse Patient Records regulations: The Federal rules restrict any use of the information to criminally investigate or prosecute any alcohol or drug abuse patient.[facility] [place]In the event this information is protected by the Federal Confidentiality of Alcohol and Drug Abuse Patient Records regulations: The Federal rules restrict any use of the information to criminally investigate or prosecute any alcohol or drug abuse patient.[facility] [place]In the event this information is protected by the Federal Confidentiality of Alcohol and Drug Abuse Patient Records regulations: The Federal rules restrict any use of the information to criminally investigate or prosecute any alcohol or drug abuse patient.[facility] [place]In the event this information is protected by the Federal Confidentiality of Alcohol and Drug Abuse Patient Records regulations: The Federal rules restrict any use of the information to criminally investigate or prosecute any alcohol or drug abuse patient.[facility] [place]In the event this information is protected by the Federal Confidentiality of Alcohol and Drug Abuse Patient Records regulations: The Federal rules restrict any use of the information to criminally investigate or prosecute any alcohol or drug abuse patient.[facility] [place]In the event this information is protected by the Federal Confidentiality of Alcohol and Drug Abuse Patient Records regulations: The Federal rules restrict any use of the information to criminally investigate or prosecute any alcohol or drug abuse patient.[facility] [place]In the event this information is protected by the Federal Confidentiality of Alcohol and Drug Abuse Patient Records regulations: The Federal rules restrict any use of the information to criminally investigate or prosecute any alcohol or drug abuse patient.[facility] AndersonIn the event this information is protected by the Federal Confidentiality of Alcohol and Drug Abuse Patient Records regulations: The Federal rules restrict any use of the information to criminally investigate or prosecute any alcohol or drug abuse patient.[facility] AndersonIn the event this information is protected by the Federal Confidentiality of Alcohol and Drug Abuse Patient Records regulations: The Federal rules restrict any use of the information to criminally investigate or prosecute any alcohol or drug abuse patient.[facility] AndersonIn the event this information is protected by the Federal Confidentiality of Alcohol and Drug Abuse Patient Records regulations: The Federal rules restrict any use of the information to criminally investigate or prosecute any alcohol or drug abuse patient.[facility] AndersonIn the event this information is protected by the Federal Confidentiality of Alcohol and Drug Abuse Patient Records regulations: The Federal rules restrict any use of the information to criminally investigate or prosecute any alcohol or drug abuse patient.[facility] AndersonIn the event this information is protected by the Federal Confidentiality of Alcohol and Drug Abuse Patient Records regulations: The Federal rules restrict any use of the information to criminally investigate or prosecute any alcohol or drug abuse patient.[facility] [place]In the event this information is protected by the Federal Confidentiality of Alcohol and Drug Abuse Patient Records regulations: The Federal rules restrict any use of the information to criminally investigate or prosecute any alcohol or drug abuse patient.[facility] [place]In the event this information is protected by the Federal Confidentiality of Alcohol and Drug Abuse Patient Records regulations: The Federal rules restrict any use of the information to criminally investigate or prosecute any alcohol or drug abuse patient.[facility] [place]In the event this information is protected by the Federal Confidentiality of Alcohol and Drug Abuse Patient Records regulations: The Federal rules restrict any use of the information to criminally investigate or prosecute any alcohol or drug abuse patient.[facility] [place]In the event this information is protected by the Federal Confidentiality of Alcohol and Drug Abuse Patient Records regulations: The Federal rules restrict any use of the information to criminally investigate or prosecute any alcohol or drug abuse patient.[facility] [place]In the event this information is protected by the Federal Confidentiality of Alcohol and Drug Abuse Patient Records regulations: The Federal rules restrict any use of the information to criminally investigate or prosecute any alcohol or drug abuse patient.[facility] [place]In the event this information is protected by the Federal Confidentiality of Alcohol and Drug Abuse Patient Records regulations: The Federal rules restrict any use of the information to criminally investigate or prosecute any alcohol or drug abuse patient.[facility] [place]In the event this information is protected by the Federal Confidentiality of Alcohol and Drug Abuse Patient Records regulations: The Federal rules restrict any use of the information to criminally investigate or prosecute any alcohol or drug abuse patient.[facility] [place]In the event this information is protected by the Federal Confidentiality of Alcohol and Drug Abuse Patient Records regulations: The Federal rules restrict any use of the information to criminally investigate or prosecute any alcohol or drug abuse patient.[facility] [place]In the event this information is protected by the Federal Confidentiality of Alcohol and Drug Abuse Patient Records regulations: The Federal rules restrict any use of the information to criminally investigate or prosecute any alcohol or drug abuse patient.[facility] [place]In the event this information is protected by the Federal Confidentiality of Alcohol and Drug Abuse Patient Records regulations: The Federal rules restrict any use of the information to criminally investigate or prosecute any alcohol or drug abuse patient.[facility] [place]In the event this information is protected by the Federal Confidentiality of Alcohol and Drug Abuse Patient Records regulations: The Federal rules restrict any use of the information to criminally investigate or prosecute any alcohol or drug abuse patient.[facility] AndersonIn the event this information is protected by the Federal Confidentiality of Alcohol and Drug Abuse Patient Records regulations: The Federal rules restrict any use of the information to criminally investigate or prosecute any alcohol or drug abuse patient.[facility] AndersonIn the event this information is protected by the Federal Confidentiality of Alcohol and Drug Abuse Patient Records regulations: The Federal rules restrict any use of the information to criminally investigate or prosecute any alcohol or drug abuse patient.[facility] [place]In the event this information is protected by the Federal Confidentiality of Alcohol and Drug Abuse Patient Records regulations: The Federal rules restrict any use of the information to criminally investigate or prosecute any alcohol or drug abuse patient.[facility] [place]In the event this information is protected by the Federal Confidentiality of Alcohol and Drug Abuse Patient Records regulations: The Federal rules restrict any use of the information to criminally investigate or prosecute any alcohol or drug abuse patient.[facility] [place]In the event this information is protected by the Federal Confidentiality of Alcohol and Drug Abuse Patient Records regulations: The Federal rules restrict any use of the information to criminally investigate or prosecute any alcohol or drug abuse patient.[facility] [place]In the event this information is protected by the Federal Confidentiality of Alcohol and Drug Abuse Patient Records regulations: The Federal rules restrict any use of the information to criminally investigate or prosecute any alcohol or drug abuse patient.[facility] [place]In the event this information is protected by the Federal Confidentiality of Alcohol and Drug Abuse Patient Records regulations: The Federal rules restrict any use of the information to criminally investigate or prosecute any alcohol or drug abuse patient.[facility] AndersonIn the event this information is protected by the Federal Confidentiality of Alcohol and Drug Abuse Patient Records regulations: The Federal rules restrict any use of the information to criminally investigate or prosecute any alcohol or drug abuse patient.[facility] AndersonIn the event this information is protected by the Federal Confidentiality of Alcohol and Drug Abuse Patient Records regulations: The Federal rules restrict any use of the information to criminally investigate or prosecute any alcohol or drug abuse patient.[facility] [place]In the event this information is protected by the Federal Confidentiality of Alcohol and Drug Abuse Patient Records regulations: The Federal rules restrict any use of the information to criminally investigate or prosecute any alcohol or drug abuse patient.[facility] AndersonIn the event this information is protected by the Federal Confidentiality of Alcohol and Drug Abuse Patient Records regulations: The Federal rules restrict any use of the information to criminally investigate or prosecute any alcohol or drug abuse patient.[facility] AndersonIn the event this information is protected by the Federal Confidentiality of Alcohol and Drug Abuse Patient Records regulations: The Federal rules restrict any use of the information to criminally investigate or prosecute any alcohol or drug abuse patient.[facility] AndersonIn the event this information is protected by the Federal Confidentiality of Alcohol and Drug Abuse Patient Records regulations: The Federal rules restrict any use of the information to criminally investigate or prosecute any alcohol or drug abuse patient.[facility] AndersonIn the event this information is protected by the Federal Confidentiality of Alcohol and Drug Abuse Patient Records regulations: The Federal rules restrict any use of the information to criminally investigate or prosecute any alcohol or drug abuse patient.[facility] AndersonIn the event this information is protected by the Federal Confidentiality of Alcohol and Drug Abuse Patient Records regulations: The Federal rules restrict any use of the information to criminally investigate or prosecute any alcohol or drug abuse patient.[facility] AndersonIn the event this information is protected by the Federal Confidentiality of Alcohol and Drug Abuse Patient Records regulations: The Federal rules restrict any use of the information to criminally investigate or prosecute any alcohol or drug abuse patient.[facility] [place]In the event this information is protected by the Federal Confidentiality of Alcohol and Drug Abuse Patient Records regulations: The Federal rules restrict any use of the information to criminally investigate or prosecute any alcohol or drug abuse patient.[facility] AndersonIn the event this information is protected by the Federal Confidentiality of Alcohol and Drug Abuse Patient Records regulations: The Federal rules restrict any use of the information to criminally investigate or prosecute any alcohol or drug abuse patient.[facility] AndersonIn the event this information is protected by the Federal Confidentiality of Alcohol and Drug Abuse Patient Records regulations: The Federal rules restrict any use of the information to criminally investigate or prosecute any alcohol or drug abuse patient.[facility] AndersonIn the event this information is protected by the Federal Confidentiality of Alcohol and Drug Abuse Patient Records regulations: The Federal rules restrict any use of the information to criminally investigate or prosecute any alcohol or drug abuse patient.[facility] AndersonIn the event this information is protected by the Federal Confidentiality of Alcohol and Drug Abuse Patient Records regulations: The Federal rules restrict any use of the information to criminally investigate or prosecute any alcohol or drug abuse patient.[facility] AndersonIn the event this information is protected by the Federal Confidentiality of Alcohol and Drug Abuse Patient Records regulations: The Federal rules restrict any use of the information to criminally investigate or prosecute any alcohol or drug abuse patient.[facility] AndersonIn the event this information is protected by the Federal Confidentiality of Alcohol and Drug Abuse Patient Records regulations: The Federal rules restrict any use of the information to criminally investigate or prosecute any alcohol or drug abuse patient.[facility] AndersonIn the event this information is protected by the Federal Confidentiality of Alcohol and Drug Abuse Patient Records regulations: The Federal rules restrict any use of the information to criminally investigate or prosecute any alcohol or drug abuse patient.[facility] AndersonIn the event this information is protected by the Federal Confidentiality of Alcohol and Drug Abuse Patient Records regulations: The Federal rules restrict any use of the information to criminally investigate or prosecute any alcohol or drug abuse patient.[facility] AndersonIn the event this information is protected by the Federal Confidentiality of Alcohol and Drug Abuse Patient Records regulations: The Federal rules restrict any use of the information to criminally investigate or prosecute any alcohol or drug abuse patient.[facility] AndersonIn the event this information is protected by the Federal Confidentiality of Alcohol and Drug Abuse Patient Records regulations: The Federal rules restrict any use of the information to criminally investigate or prosecute any alcohol or drug abuse patient.[facility] AndersonIn the event this information is protected by the Federal Confidentiality of Alcohol and Drug Abuse Patient Records regulations: The Federal rules restrict any use of the information to criminally investigate or prosecute any alcohol or drug abuse patient.[facility] AndersonIn the event this information is protected by the Federal Confidentiality of Alcohol and Drug Abuse Patient Records regulations: The Federal rules restrict any use of the information to criminally investigate or prosecute any alcohol or drug abuse patient.[facility] AndersonIn the event this information is protected by the Federal Confidentiality of Alcohol and Drug Abuse Patient Records regulations: The Federal rules restrict any use of the information to criminally investigate or prosecute any alcohol or drug abuse patient.[facility] AndersonIn the event this information is protected by the Federal Confidentiality of Alcohol and Drug Abuse Patient Records regulations: The Federal rules restrict any use of the information to criminally investigate or prosecute any alcohol or drug abuse patient.[facility] AndersonIn the event this information is protected by the Federal Confidentiality of Alcohol and Drug Abuse Patient Records regulations: The Federal rules restrict any use of the information to criminally investigate or prosecute any alcohol or drug abuse patient.[facility] AndersonIn the event this information is protected by the Federal Confidentiality of Alcohol and Drug Abuse Patient Records regulations: The Federal rules restrict any use of the information to criminally investigate or prosecute any alcohol or drug abuse patient.[facility] AndersonIn the event this information is protected by the Federal Confidentiality of Alcohol and Drug Abuse Patient Records regulations: The Federal rules restrict any use of the information to criminally investigate or prosecute any alcohol or drug abuse patient.[facility] AndersonIn the event this information is protected by the Federal Confidentiality of Alcohol and Drug Abuse Patient Records regulations: The Federal rules restrict any use of the information to criminally investigate or prosecute any alcohol or drug abuse patient.[facility] AndersonIn the event this information is protected by the Federal Confidentiality of Alcohol and Drug Abuse Patient Records regulations: The Federal rules restrict any use of the information to criminally investigate or prosecute any alcohol or drug abuse patient.[facility] AndersonIn the event this information is protected by the Federal Confidentiality of Alcohol and Drug Abuse Patient Records regulations: The Federal rules restrict any use of the information to criminally investigate or prosecute any alcohol or drug abuse patient.[facility] AndersonIn the event this information is protected by the Federal Confidentiality of Alcohol and Drug Abuse Patient Records regulations: The Federal rules restrict any use of the information to criminally investigate or prosecute any alcohol or drug abuse patient.[facility] AndersonIn the event this information is protected by the Federal Confidentiality of Alcohol and Drug Abuse Patient Records regulations: The Federal rules restrict any use of the information to criminally investigate or prosecute any alcohol or drug abuse patient.[facility] AndersonIn the event this information is protected by the Federal Confidentiality of Alcohol and Drug Abuse Patient Records regulations: The Federal rules restrict any use of the information to criminally investigate or prosecute any alcohol or drug abuse patient.[facility] AndersonIn the event this information is protected by the Federal Confidentiality of Alcohol and Drug Abuse Patient Records regulations: The Federal rules restrict any use of the information to criminally investigate or prosecute any alcohol or drug abuse patient.[facility] [place]In the event this information is protected by the Federal Confidentiality of Alcohol and Drug Abuse Patient Records regulations: The Federal rules restrict any use of the information to criminally investigate or prosecute any alcohol or drug abuse patient.[facility] AndersonIn the event this information is protected by the Federal Confidentiality of Alcohol and Drug Abuse Patient Records regulations: The Federal rules restrict any use of the information to criminally investigate or prosecute any alcohol or drug abuse patient.[facility] AndersonIn the event this information is protected by the Federal Confidentiality of Alcohol and Drug Abuse Patient Records regulations: The Federal rules restrict any use of the information to criminally investigate or prosecute any alcohol or drug abuse patient.[facility] AndersonIn the event this information is protected by the Federal Confidentiality of Alcohol and Drug Abuse Patient Records regulations: The Federal rules restrict any use of the information to criminally investigate or prosecute any alcohol or drug abuse patient.[facility] AndersonIn the event this information is protected by the Federal Confidentiality of Alcohol and Drug Abuse Patient Records regulations: The Federal rules restrict any use of the information to criminally investigate or prosecute any alcohol or drug abuse patient.[facility] AndersonIn the event this information is protected by the Federal Confidentiality of Alcohol and Drug Abuse Patient Records regulations: The Federal rules restrict any use of the information to criminally investigate or prosecute any alcohol or drug abuse patient.[facility] AndersonIn the event this information is protected by the Federal Confidentiality of Alcohol and Drug Abuse Patient Records regulations: The Federal rules restrict any use of the information to criminally investigate or prosecute any alcohol or drug abuse patient.[facility] AndersonIn the event this information is protected by the Federal Confidentiality of Alcohol and Drug Abuse Patient Records regulations: The Federal rules restrict any use of the information to criminally investigate or prosecute any alcohol or drug abuse patient.[facility] AndersonIn the event this information is protected by the Federal Confidentiality of Alcohol and Drug Abuse Patient Records regulations: The Federal rules restrict any use of the information to criminally investigate or prosecute any alcohol or drug abuse patient.[facility] AndersonIn the event this information is protected by the Federal Confidentiality of Alcohol and Drug Abuse Patient Records regulations: The Federal rules restrict any use of the information to criminally investigate or prosecute any alcohol or drug abuse patient.[facility] AndersonIn the event this information is protected by the Federal Confidentiality of Alcohol and Drug Abuse Patient Records regulations: The Federal rules restrict any use of the information to criminally investigate or prosecute any alcohol or drug abuse patient.[facility] AndersonIn the event this information is protected by the Federal Confidentiality of Alcohol and Drug Abuse Patient Records regulations: The Federal rules restrict any use of the information to criminally investigate or prosecute any alcohol or drug abuse patient.[facility] AndersonIn the event this information is protected by the Federal Confidentiality of Alcohol and Drug Abuse Patient Records regulations: The Federal rules restrict any use of the information to criminally investigate or prosecute any alcohol or drug abuse patient.[facility] AndersonIn the event this information is protected by the Federal Confidentiality of Alcohol and Drug Abuse Patient Records regulations: The Federal rules restrict any use of the information to criminally investigate or prosecute any alcohol or drug abuse patient.[facility] AndersonIn the event this information is protected by the Federal Confidentiality of Alcohol and Drug Abuse Patient Records regulations: The Federal rules restrict any use of the information to criminally investigate or prosecute any alcohol or drug abuse patient.[facility] AndersonIn the event this information is protected by the Federal Confidentiality of Alcohol and Drug Abuse Patient Records regulations: The Federal rules restrict any use of the information to criminally investigate or prosecute any alcohol or drug abuse patient.[facility] AndersonIn the event this information is protected by the Federal Confidentiality of Alcohol and Drug Abuse Patient Records regulations: The Federal rules restrict any use of the information to criminally investigate or prosecute any alcohol or drug abuse patient.[facility] AndersonIn the event this information is protected by the Federal Confidentiality of Alcohol and Drug Abuse Patient Records regulations: The Federal rules restrict any use of the information to criminally investigate or prosecute any alcohol or drug abuse patient.[facility] AndersonIn the event this information is protected by the Federal Confidentiality of Alcohol and Drug Abuse Patient Records regulations: The Federal rules restrict any use of the information to criminally investigate or prosecute any alcohol or drug abuse patient.[facility] AndersonIn the event this information is protected by the Federal Confidentiality of Alcohol and Drug Abuse Patient Records regulations: The Federal rules restrict any use of the information to criminally investigate or prosecute any alcohol or drug abuse patient.[facility] AndersonIn the event this information is protected by the Federal Confidentiality of Alcohol and Drug Abuse Patient Records regulations: The Federal rules restrict any use of the information to criminally investigate or prosecute any alcohol or drug abuse patient.[facility] AndersonIn the event this information is protected by the Federal Confidentiality of Alcohol and Drug Abuse Patient Records regulations: The Federal rules restrict any use of the information to criminally investigate or prosecute any alcohol or drug abuse patient.[facility] AndersonIn the event this information is protected by the Federal Confidentiality of Alcohol and Drug Abuse Patient Records regulations: The Federal rules restrict any use of the information to criminally investigate or prosecute any alcohol or drug abuse patient.[facility] AndersonIn the event this information is protected by the Federal Confidentiality of Alcohol and Drug Abuse Patient Records regulations: The Federal rules restrict any use of the information to criminally investigate or prosecute any alcohol or drug abuse patient.[facility] AndersonIn the event this information is protected by the Federal Confidentiality of Alcohol and Drug Abuse Patient Records regulations: The Federal rules restrict any use of the information to criminally investigate or prosecute any alcohol or drug abuse patient.[facility] AndersonIn the event this information is protected by the Federal Confidentiality of Alcohol and Drug Abuse Patient Records regulations: The Federal rules restrict any use of the information to criminally investigate or prosecute any alcohol or drug abuse patient.[facility] AndersonIn the event this information is protected by the Federal Confidentiality of Alcohol and Drug Abuse Patient Records regulations: The Federal rules restrict any use of the information to criminally investigate or prosecute any alcohol or drug abuse patient.[facility] AndersonIn the event this information is protected by the Federal Confidentiality of Alcohol and Drug Abuse Patient Records regulations: The Federal rules restrict any use of the information to criminally investigate or prosecute any alcohol or drug abuse patient.[facility] AndersonIn the event this information is protected by the Federal Confidentiality of Alcohol and Drug Abuse Patient Records regulations: The Federal rules restrict any use of the information to criminally investigate or prosecute any alcohol or drug abuse patient.[facility] AndersonIn the event this information is protected by the Federal Confidentiality of Alcohol and Drug Abuse Patient Records regulations: The Federal rules restrict any use of the information to criminally investigate or prosecute any alcohol or drug abuse patient.[facility] [place]In the event this information is protected by the Federal Confidentiality of Alcohol and Drug Abuse Patient Records regulations: The Federal rules restrict any use of the information to criminally investigate or prosecute any alcohol or drug abuse patient.[facility] [place]In the event this information is protected by the Federal Confidentiality of Alcohol and Drug Abuse Patient Records regulations: The Federal rules restrict any use of the information to criminally investigate or prosecute any alcohol or drug abuse patient.[facility] AndersonIn the event this information is protected by the Federal Confidentiality of Alcohol and Drug Abuse Patient Records regulations: The Federal rules restrict any use of the information to criminally investigate or prosecute any alcohol or drug abuse patient.[facility] AndersonIn the event this information is protected by the Federal Confidentiality of Alcohol and Drug Abuse Patient Records regulations: The Federal rules restrict any use of the information to criminally investigate or prosecute any alcohol or drug abuse patient.[facility] AndersonIn the event this information is protected by the Federal Confidentiality of Alcohol and Drug Abuse Patient Records regulations: The Federal rules restrict any use of the information to criminally investigate or prosecute any alcohol or drug abuse patient.[facility] AndersonIn the event this information is protected by the Federal Confidentiality of Alcohol and Drug Abuse Patient Records regulations: The Federal rules restrict any use of the information to criminally investigate or prosecute any alcohol or drug abuse patient.[facility] AndersonIn the event this information is protected by the Federal Confidentiality of Alcohol and Drug Abuse Patient Records regulations: The Federal rules restrict any use of the information to criminally investigate or prosecute any alcohol or drug abuse patient.[facility] AndersonIn the event this information is protected by the Federal Confidentiality of Alcohol and Drug Abuse Patient Records regulations: The Federal rules restrict any use of the information to criminally investigate or prosecute any alcohol or drug abuse patient.[facility] AndersonIn the event this information is protected by the Federal Confidentiality of Alcohol and Drug Abuse Patient Records regulations: The Federal rules restrict any use of the information to criminally investigate or prosecute any alcohol or drug abuse patient.[facility] AndersonIn the event this information is protected by the Federal Confidentiality of Alcohol and Drug Abuse Patient Records regulations: The Federal rules restrict any use of the information to criminally investigate or prosecute any alcohol or drug abuse patient.[facility] AndersonIn the event this information is protected by the Federal Confidentiality of Alcohol and Drug Abuse Patient Records regulations: The Federal rules restrict any use of the information to criminally investigate or prosecute any alcohol or drug abuse patient.[facility] AndersonIn the event this information is protected by the Federal Confidentiality of Alcohol and Drug Abuse Patient Records regulations: The Federal rules restrict any use of the information to criminally investigate or prosecute any alcohol or drug abuse patient.[facility] AndersonIn the event this information is protected by the Federal Confidentiality of Alcohol and Drug Abuse Patient Records regulations: The Federal rules restrict any use of the information to criminally investigate or prosecute any alcohol or drug abuse patient.[facility] [place]In the event this information is protected by the Federal Confidentiality of Alcohol and Drug Abuse Patient Records regulations: The Federal rules restrict any use of the information to criminally investigate or prosecute any alcohol or drug abuse patient.[facility] AndersonIn the event this information is protected by the Federal Confidentiality of Alcohol and Drug Abuse Patient Records regulations: The Federal rules restrict any use of the information to criminally investigate or prosecute any alcohol or drug abuse patient.[facility] [place]In the event this information is protected by the Federal Confidentiality of Alcohol and Drug Abuse Patient Records regulations: The Federal rules restrict any use of the information to criminally investigate or prosecute any alcohol or drug abuse patient.[facility] AndersonIn the event this information is protected by the Federal Confidentiality of Alcohol and Drug Abuse Patient Records regulations: The Federal rules restrict any use of the information to criminally investigate or prosecute any alcohol or drug abuse patient.[facility] AndersonIn the event this information is protected by the Federal Confidentiality of Alcohol and Drug Abuse Patient Records regulations: The Federal rules restrict any use of the information to criminally investigate or prosecute any alcohol or drug abuse patient.[facility] AndersonIn the event this information is protected by the Federal Confidentiality of Alcohol and Drug Abuse Patient Records regulations: The Federal rules restrict any use of the information to criminally investigate or prosecute any alcohol or drug abuse patient.[facility] AndersonIn the event this information is protected by the Federal Confidentiality of Alcohol and Drug Abuse Patient Records regulations: The Federal rules restrict any use of the information to criminally investigate or prosecute any alcohol or drug abuse patient.[facility] AndersonIn the event this information is protected by the Federal Confidentiality of Alcohol and Drug Abuse Patient Records regulations: The Federal rules restrict any use of the information to criminally investigate or prosecute any alcohol or drug abuse patient.[facility] AndersonIn the event this information is protected by the Federal Confidentiality of Alcohol and Drug Abuse Patient Records regulations: The Federal rules restrict any use of the information to criminally investigate or prosecute any alcohol or drug abuse patient.[facility] AndersonIn the event this information is protected by the Federal Confidentiality of Alcohol and Drug Abuse Patient Records regulations: The Federal rules restrict any use of the information to criminally investigate or prosecute any alcohol or drug abuse patient.[facility] AndersonIn the event this information is protected by the Federal Confidentiality of Alcohol and Drug Abuse Patient Records regulations: The Federal rules restrict any use of the information to criminally investigate or prosecute any alcohol or drug abuse patient.[facility] AndersonIn the event this information is protected by the Federal Confidentiality of Alcohol and Drug Abuse Patient Records regulations: The Federal rules restrict any use of the information to criminally investigate or prosecute any alcohol or drug abuse patient.[facility] AndersonIn the event this information is protected by the Federal Confidentiality of Alcohol and Drug Abuse Patient Records regulations: The Federal rules restrict any use of the information to criminally investigate or prosecute any alcohol or drug abuse patient.[facility] AndersonIn the event this information is protected by the Federal Confidentiality of Alcohol and Drug Abuse Patient Records regulations: The Federal rules restrict any use of the information to criminally investigate or prosecute any alcohol or drug abuse patient.[facility] AndersonIn the event this information is protected by the Federal Confidentiality of Alcohol and Drug Abuse Patient Records regulations: The Federal rules restrict any use of the information to criminally investigate or prosecute any alcohol or drug abuse patient.[facility] AndersonIn the event this information is protected by the Federal Confidentiality of Alcohol and Drug Abuse Patient Records regulations: The Federal rules restrict any use of the information to criminally investigate or prosecute any alcohol or drug abuse patient.[facility] AndersonIn the event this information is protected by the Federal Confidentiality of Alcohol and Drug Abuse Patient Records regulations: The Federal rules restrict any use of the information to criminally investigate or prosecute any alcohol or drug abuse patient.[facility] AndersonIn the event this information is protected by the Federal Confidentiality of Alcohol and Drug Abuse Patient Records regulations: The Federal rules restrict any use of the information to criminally investigate or prosecute any alcohol or drug abuse patient.[facility] AndersonIn the event this information is protected by the Federal Confidentiality of Alcohol and Drug Abuse Patient Records regulations: The Federal rules restrict any use of the information to criminally investigate or prosecute any alcohol or drug abuse patient.[facility] AndersonIn the event this information is protected by the Federal Confidentiality of Alcohol and Drug Abuse Patient Records regulations: The Federal rules restrict any use of the information to criminally investigate or prosecute any alcohol or drug abuse patient.[facility] AndersonIn the event this information is protected by the Federal Confidentiality of Alcohol and Drug Abuse Patient Records regulations: The Federal rules restrict any use of the information to criminally investigate or prosecute any alcohol or drug abuse patient.[facility] AndersonIn the event this information is protected by the Federal Confidentiality of Alcohol and Drug Abuse Patient Records regulations: The Federal rules restrict any use of the information to criminally investigate or prosecute any alcohol or drug abuse patient.[facility] AndersonIn the event this information is protected by the Federal Confidentiality of Alcohol and Drug Abuse Patient Records regulations: The Federal rules restrict any use of the information to criminally investigate or prosecute any alcohol or drug abuse patient.[facility] AndersonIn the event this information is protected by the Federal Confidentiality of Alcohol and Drug Abuse Patient Records regulations: The Federal rules restrict any use of the information to criminally investigate or prosecute any alcohol or drug abuse patient.[facility] AndersonIn the event this information is protected by the Federal Confidentiality of Alcohol and Drug Abuse Patient Records regulations: The Federal rules restrict any use of the information to criminally investigate or prosecute any alcohol or drug abuse patient.[facility] AndersonIn the event this information is protected by the Federal Confidentiality of Alcohol and Drug Abuse Patient Records regulations: The Federal rules restrict any use of the information to criminally investigate or prosecute any alcohol or drug abuse patient.[facility] AndersonIn the event this information is protected by the Federal Confidentiality of Alcohol and Drug Abuse Patient Records regulations: The Federal rules restrict any use of the information to criminally investigate or prosecute any alcohol or drug abuse patient.[facility] AndersonIn the event this information is protected by the Federal Confidentiality of Alcohol and Drug Abuse Patient Records regulations: The Federal rules restrict any use of the information to criminally investigate or prosecute any alcohol or drug abuse patient.[facility] AndersonIn the event this information is protected by the Federal Confidentiality of Alcohol and Drug Abuse Patient Records regulations: The Federal rules restrict any use of the information to criminally investigate or prosecute any alcohol or drug abuse patient.[facility] AndersonIn the event this information is protected by the Federal Confidentiality of Alcohol and Drug Abuse Patient Records regulations: The Federal rules restrict any use of the information to criminally investigate or prosecute any alcohol or drug abuse patient.[facility] AndersonIn the event this information is protected by the Federal Confidentiality of Alcohol and Drug Abuse Patient Records regulations: The Federal rules restrict any use of the information to criminally investigate or prosecute any alcohol or drug abuse patient.[facility] AndersonIn the event this information is protected by the Federal Confidentiality of Alcohol and Drug Abuse Patient Records regulations: The Federal rules restrict any use of the information to criminally investigate or prosecute any alcohol or drug abuse patient.[facility] AndersonIn the event this information is protected by the Federal Confidentiality of Alcohol and Drug Abuse Patient Records regulations: The Federal rules restrict any use of the information to criminally investigate or prosecute any alcohol or drug abuse patient.[facility] AndersonIn the event this information is protected by the Federal Confidentiality of Alcohol and Drug Abuse Patient Records regulations: The Federal rules restrict any use of the information to criminally investigate or prosecute any alcohol or drug abuse patient.[facility] AndersonIn the event this information is protected by the Federal Confidentiality of Alcohol and Drug Abuse Patient Records regulations: The Federal rules restrict any use of the information to criminally investigate or prosecute any alcohol or drug abuse patient.[facility] AndersonIn the event this information is protected by the Federal Confidentiality of Alcohol and Drug Abuse Patient Records regulations: The Federal rules restrict any use of the information to criminally investigate or prosecute any alcohol or drug abuse patient.[facility] AndersonIn the event this information is protected by the Federal Confidentiality of Alcohol and Drug Abuse Patient Records regulations: The Federal rules restrict any use of the information to criminally investigate or prosecute any alcohol or drug abuse patient.[facility] AndersonIn the event this information is protected by the Federal Confidentiality of Alcohol and Drug Abuse Patient Records regulations: The Federal rules restrict any use of the information to criminally investigate or prosecute any alcohol or drug abuse patient.[facility] AndersonIn the event this information is protected by the Federal Confidentiality of Alcohol and Drug Abuse Patient Records regulations: The Federal rules restrict any use of the information to criminally investigate or prosecute any alcohol or drug abuse patient.[facility] AndersonIn the event this information is protected by the Federal Confidentiality of Alcohol and Drug Abuse Patient Records regulations: The Federal rules restrict any use of the information to criminally investigate or prosecute any alcohol or drug abuse patient.[facility] AndersonIn the event this information is protected by the Federal Confidentiality of Alcohol and Drug Abuse Patient Records regulations: The Federal rules restrict any use of the information to criminally investigate or prosecute any alcohol or drug abuse patient.[facility] AndersonIn the event this information is protected by the Federal Confidentiality of Alcohol and Drug Abuse Patient Records regulations: The Federal rules restrict any use of the information to criminally investigate or prosecute any alcohol or drug abuse patient.[facility] AndersonIn the event this information is protected by the Federal Confidentiality of Alcohol and Drug Abuse Patient Records regulations: The Federal rules restrict any use of the information to criminally investigate or prosecute any alcohol or drug abuse patient.[facility] AndersonIn the event this information is protected by the Federal Confidentiality of Alcohol and Drug Abuse Patient Records regulations: The Federal rules restrict any use of the information to criminally investigate or prosecute any alcohol or drug abuse patient.[facility] AndersonIn the event this information is protected by the Federal Confidentiality of Alcohol and Drug Abuse Patient Records regulations: The Federal rules restrict any use of the information to criminally investigate or prosecute any alcohol or drug abuse patient.[facility] AndersonIn the event this information is protected by the Federal Confidentiality of Alcohol and Drug Abuse Patient Records regulations: The Federal rules restrict any use of the information to criminally investigate or prosecute any alcohol or drug abuse patient.[facility] AndersonIn the event this information is protected by the Federal Confidentiality of Alcohol and Drug Abuse Patient Records regulations: The Federal rules restrict any use of the information to criminally investigate or prosecute any alcohol or drug abuse patient.[facility] AndersonIn the event this information is protected by the Federal Confidentiality of Alcohol and Drug Abuse Patient Records regulations: The Federal rules restrict any use of the information to criminally investigate or prosecute any alcohol or drug abuse patient.[facility] [place] Reason for Visit (unrecogniz ed section and content) Reason Comments Physical Therapy Specialty Diagnoses / Procedures Referred By Contac t Referred To Contact [facility] Diagnoses Acute pain of right knee Procedures CONSULT TO PHYSICAL THERAPY PHYSICAL THERAPY EVALUATION HIGH COMPLEX 45 MINS Betty Bueno MD 1 [facility] [address] [place] [address] [facility] [address] [place] [address] Referral ID Status Reason Start Date Expiration Date Visits Requested Visits Authorized [id number] Authorized Auto-Generat ed Referral 07/13/2023 04/24/2024 20 20 Reason Comments Appointment Reason Onset Date Comments Refill Request 11/05/2020 Reason Comments New Patient Reason Comments New Patient Reason Comments Patient Update Reason Onset Date Comments Refill Request 12/16/2020 Reason Comments Future Appointment Reason Comments Received Outside Medical Records Reason Comments Follow Up Rx Refills Reason Comments Injections Reason Onset Date Comments Refill Request 02/09/2021 Reason Onset Date Comments Diarrhea Worse with certa in foods Immunizations 02/13/2021 Flu vaccination Reason Comments Opened In Error Reason Comments Patient Question Reason Comments Procedure Specialty Diagnoses / Procedures Referred By Contac t Referred To Contact PAIN MANAGEMENT Diagnoses Sacroiliitis, not elsewhere classified Procedures INJECTION PROCEDURE FOR SACROILIAC SI Joint injection Bekah Cintron MD [address] [facility] [address] [place] [address] [facility] [place] [address] [place] [address] Referral ID Status Reason Start Date Expiration Date Visits Re quested Visits Authorized [id number] Closed 01/30/2021 04/24/2021 1 1 Reason Comments ER F/U Reason Comments Follow Up Reason Comments Refill Request Reason Comments Medication Problem Reason Comments Follow Up 2 mo Low Back Pain Reason Onset Date Comments Refill Request 08/18/2021 Reason Comments Follow Up last OV 05/18/21; hav ing problems with Left Shoulder. seen Dr at [facility] this week. Reason Comments Hypertension Reason Comments New Specialty Diagnoses / Procedures Referred By Contac t Referred To Contact Orthopedics Diagnoses Chronic left shoulder pain Procedures CONSULT TO ORTHOPAEDICS OFFICE/OUTPATIENT NEW HIGH MDM 60-74 MINUTES Betty Bueno MD 1 [facility] [address] [place] [address] Referral ID Status Reason Start Date Expiration Date Visits Requested Visits Authorized [id number] Pending Review PCP Requested Referral 08/28/2021 08/28/2022 1 1 Specialty Diagnoses / Procedures Referred By Contac t Referred To Contact MR IMAGING Diagnoses Chronic left shoulder pain Procedures MRI SHOULDER WO IVCON LT MRI ANY JT UPPER EXTREMITY W/O CONTRAST MATRL Priscilla Telles MD [address] [facility] [address] [place] [address] Mr Imaging Referral ID Status Reason Start Date Expiration Date V isits Requested Visits Authorized [id number] Closed Auto-Generate d Referral 09/10/2021 10/10/2022 1 1 Reason Comments Hypertension Reason Comments Established Patient left shoulder MRI F/ U Established Patient Reason Comments Urinary Frequency UTI symptoms burning and frequency for 2 weeks Reason Comments Rx Refills Follow Up Specialty Diagnoses / Procedures Referred By Contac t Referred To Contact Physical Therapy / PHYSICAL THERAPY Diagnoses Chronic left shoulder pain Neck pain Procedures CONSULT TO PHYSICAL THERAPY Priscilla Telles MD [address] [place] [address] [facility] [address] [place] [address] Referral ID Status Reason Start Date Expiration Date V isits Requested Visits Authorized [id number] Authorized 10/08/2021 04/24/2022 99 99 Specialty Diagnoses / Procedures Referred By Contac t Referred To Contact Pain Management / PAIN MANAGEMENT Diagnoses Sacroiliitis, not elsewhere classified Bilateral SIJ CSI under fluro, diabetic, 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 Procedures INJECT SI JOINT ARTHRGRPHY&/ANES/STERO ID W/DAI PROCEDURE 20 Thole, Nicole, PA-C [address] [place] [address] Bekah Cintron MD [address] [place] [address] Referral ID Status Reason Start Date Expiration Date Visits Re quested Visits Authorized [id number] Closed 04/25/2021 04/24/2022 1 1 Reason Comments Low Back Pain Established Patient Specialty Diagnoses / Procedures Referred By Contac t Referred To Contact Pain Management / PAIN MANAGEMENT Diagnoses follow up for Bilateral SIJ CSI under fluro Procedures OFFICE/OUTPATIENT ESTABLISHED MOD MDM 30-39 MIN PROVIDER SPECIALTY PHONE CALL Nicole French PA-C [address] [place] [address] Nicole French PA-C [address] [place] [address] Referral ID Status Reason Start Date Expiration Date Visits Re quested Visits Authorized [id number] Closed 04/25/2021 04/24/2022 1 1 Reason Comments Rx Refills Reason Comments Forms [facility] - therapeutic shoes. Reason Onset Date Comments Refill Request 03/01/2022 Reason Comments New Patient Evaluation Abnormal Involutary Movem. Present x a c ouple of years,b/l hands, worsening recently Specialty Diagnoses / Procedures Referred By Contac t Referred To Contact Neurology Diagnoses Involuntary movements Procedures CONSULT TO NEUROLOGY OFFICE/OUTPATIENT NEW HIGH MDM 60-74 MINUTES Betty Bueno MD [address] [facility] [address] [place] [address] Referral ID Status Reason Start Date Expiration Date Visits Requested Visits Authorized [id number] Pending Review PCP Requested Referral 10/09/2021 10/09/2022 1 1 Reason Onset Date Comments Refill Request 03/22/2022 Reason Onset Date Comments Refill Request 04/26/2022 Reason Comments Urinary Frequency Reason Onset Date Comments Refill Request 06/16/2022 Reason Comments Follow Up Rx Refills Tramadol Back Pain Lower Hip Pain Bilateral Reason Comments Covid Positive Reason Comments Diabetes Reason Comments Procedure Follow Up Reason Comments New Patient Evaluation Specialty Diagnoses / Procedures Referred By Contac t Referred To Contact MR IMAGING Diagnoses Spondylolysis of cervical region Spinal stenosis of cervical region Procedures MRI CERVICAL SPINE WO IVCON MRI SPINAL CANAL CERVICAL W/O CONTRAST FREDDIEL Vickie Tiwari, DESK CLERK.MULTIPLE SLIDE OPERATOR [address] [place] [address] Mr Imaging Referral ID Status Reason Start Date Expiration Date V isits Requested Visits Authorized [id number] Closed Auto-Generate d Referral 08/13/2022 09/12/2023 1 1 Reason Comments Established Patient Reason Comments Insurance Authorization Chiro 2022 Reason Comments Neck Pain 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 [address] [place] [address] Bekah Cintron MD [address] [facility] [address] [place] [address] Referral ID Status Reason Start Date Expiration Date Visits Re quested Visits Authorized [id number] Closed 01/17/2023 01/28/2023 1 1 Reason Comments Back Pain MIDDLE Neck Pain Reason Comments Asthma Specialty Diagnoses / Procedures [facility] Diagnoses Moderate persistent asthma, uncomplicated Procedures SPIROMETRY - BASELINE AND POST DILATOR BRNCDILAT RSPSE SPMTRY PRE&POST-BRNCDILAT Betty Alan MD 1 [facility] [address] [place] [address] Respiratory [facility] [address] [place] [address] Referral ID Status Reason Start Date Expiration Date V isits Requested Visits Authorized [id number] Closed Auto-Generate d Referral 05/30/2023 06/28/2024 1 1 Reason Comments Follow Up Knee Pain Back of right knee Reason Comments Med Change Request Reason Onset Date Comments Refill Request 07/19/2023 Reason Comments Right Knee Pain Reason Comments Initial Consult Reason Onset Date Comments Population Health Navigation Outreach 08/09/2023 [place] Attributed - 2023 Medicare Wellness Appt Scheduled Reason Comments PT Eval Reason Comments REFERRAL To Orthopedics Reason Comments Follow Up Rx Refills Low Back Pain Reason Comments Injection Question Reason Comments Injections CAUDAL Specialty Diagnoses / Procedures Referred By Contac t Referred To Contact Pain Management / PAIN MANAGEMENT Diagnoses Postlaminectomy syndrome, not elsewhere classified Caudal epidural under fluoro Procedures NJX DX/THER SBST INTRLMNR LMBR/SAC W/IMG GDN PROCEDURE Bekah Cintron MD [address] [facility] [address] [place] [address] Bekah Cintron MD [address] [facility] [address] [place] [address] Referral ID Status Reason Start Date Expiration Date Visits Re quested Visits Authorized [id number] Closed 11/16/2023 11/29/2023 1 1 Reason Comments Follow Up CHAZ Reason Comments Follow Up Rx Refills 4 wk f/u and med ref ill Reason Onset Date Comments Medicare Wellness Exam Immunizations 01/02/2024 Flu vaccination Reason Comments Blurred Vision Right Eye Specialty Diagnoses / Procedures Referred By Contac t Referred To Contact Ophthalmology Diagnoses Screening for diabetic retinopathy Type 2 diabetes mellitus with peripheral neuropathy (HCC) Procedures CONSULT TO OPHTHALMOLOGY OFFICE/OUTPATIENT NEW HIGH MDM 60 MINUTES Betty Bueno MD 1 [facility] [address] [place] [address] Referral ID Status Reason Start Date Expiration Date V isits Requested Visits Authorized [id number] Closed PCP Requested Referral 10/24/2023 10/23/2024 1 1 Reason Comments Forms [facility]- form Reason Onset Date Comments Refill Request 03/12/2024 Reason Comments New Pain Swelling Reason Comments New Patient Evaluation Memory Specialty Diagnoses / Procedures Referred By Contac t Referred To Contact Gerontology Diagnoses Impaired memory Procedures CONSULT TO GERIATRICS OFFICE/OUTPATIENT [facility] 60 MINUTES Betty Bueno MD 1 [facility] [address] [place] [address] Referral ID Status Reason Start Date Expiration Date V isits Requested Visits Authorized [id number] Closed PCP Requested Referral 04/11/2024 04/11/2025 1 1 Reason Comments injection questions Reason Comments Leg Pain Reason Comments Procedure tfesi Back Pain Lower - bilateral - right is worse Specialty Diagnoses / Procedures Referred By Contac t Referred To Contact Pain Management / PAIN MANAGEMENT Diagnoses Radiculopathy, lumbar region Epidural Steroid Injection - Transforaminal Approach (TFESI) under fluoroscopic guidance RIGHT-SIDED at S1 Procedures NJX AA&/STRD TFRML EPI LUMBAR/SACRAL 1 LEVEL PROCEDURE Kalin Esposito MD [address] [address] Phone: tel: fax: Kalin Esposito MD [address] [address] Phone: tel: fax: Referral ID Status Reason Start Date Expiration Date Visits Re quested Visits Authorized [id number] Closed 06/11/2024 06/22/2024 1 1 Reason Comments Hip Pain Reason Comments Orders BP cuff Reason Comments New Knee Pain Swelling Numbness Specialty Diagnoses / Procedures Referred By Contac t Referred To Contact Orthopedics Diagnoses Synovial cyst of right popliteal space Chronic pain of right knee Procedures CONSULT TO ORTHOPAEDICS OFFICE/OUTPATIENT [facility] 60 MINUTES Betty Bueno MD [address] [address] Phone: tel: fax: Referral ID Status Reason Start Date Expiration Date V isits Requested Visits Authorized [id number] Closed PCP Requested Referral 07/11/2024 07/11/2025 1 1 Reason Comments Orders Blood pressure cuff Reason Comments 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 Right knee [employer] [facility] Reason Comments Injections GTB Specialty Diagnoses / Procedures Referred By Contac t Referred To Contact Pain Management / PAIN MANAGEMENT Diagnoses Trochanteric bursitis, left hip GTB under ultrasound guidance LEFT-SIDED : diabetic, latex allergy Procedures ARTHROCENTESIS ASPIR&/INJ MAJOR JT/BURSA W/O US PROCEDURE 20 [place] [address] [place] [address] Phone: tel: [place]: [place] [address] [place] [address] Phone: tel: fax: Referral ID Status Reason Start Date Expiration Date Visits Re quested Visits Authorized [id number] Closed 04/25/2024 04/24/2025 1 1 Reason Comments Blurred Vision Both Eyes X months Diabetes Getting better just started a medication Reason Comments Rx Refills Reason Comments Established Patient Swelling Knee Pain Reason Comments Medication Request Reason Comments Patient Education Assessment Specialty Diagnoses / Procedures Referred By Contac t Referred To Contact Nutrition Diagnoses Type 2 diabetes mellitus 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) Procedures CONSULT TO NUTRITION THERAPY MEDICAL NUTRITION ASSMT&IVNTJ INDIV EACH 15 [place] Betty Bueno MD 1 [facility] [address] [place] [address] Phone: tel: fax: Referral ID Status Reason Start Date Expiration Date Visits Requested Visits Authorized [id number] Authorized PCP Requested Referral 10/12/2024 10/12/2025 1 4 Reason Onset Date Comments Refill Request 12/04/2024 Reason Comments Procedure iah Hip Pain left Specialty Diagnoses / Procedures Referred By Contac t Referred To Contact Pain Management / PAIN MANAGEMENT Diagnoses Pain in left hip Unilateral primary osteoarthritis, left hip Left hip steroid injection intra-articular x 1 set under fluoro Procedures ARTHROCENTESIS ASPIR&/INJ MAJOR JT/BURSA W/US FLUOROSCOPIC GUIDANCE NEEDLE PLACEMENT ADD ON PROCEDURE 20 Marcial Brooks APRN.[facility] [address] [place] [address] Phone: tel: fax: Bo Valverde MD, PhD [address] [place] [address] Phone: tel: fax: Referral ID Status Reason Start Date Expiration Date Visits Re quested Visits Authorized [id number] Closed 04/25/2024 04/24/2025 1 1 Reason Comments Patient Update Post-procedure court esy call Reason Comments Patient Update GTB Reason Comments Injection (Hyaluronic Acid) INFORMATION SOURCE (unrecogn ized section and content) DATE CREATED AUTHOR 09/23/2020 [facility] DATE CREATED AUTHOR AUTHOR'S ORGANIZ ATION 06/08/2021 [facility] DATE CREATED AUTHOR AUTHOR'S ORGANIZ ATION 01/28/2025 [facility] DATE CREATED AUTHOR AUTHOR'S ORGANIZ ATION 02/21/2025 [facility] Care Teams (unrecognized sec tion and content) Vegetable Scullion Relationship Specialty Start Date End Date Betty Bueno MD [address] [place], [place] [phone] PCP - General Family Practice 09/24/20 Vegetable Scullion Relationship Specialty Start Date End Date Betty Bueno MD [address] [place] [id number] PCP - General Family Practice 09/24/20 Vegetable Scullion Relationship Specialty Start Date End Date Betty Bueno MD [address] [place] [id number] PCP - General Family Practice 09/24/20 Vegetable Scullion Relationship Specialty Start Date End Date Betty Bueno MD [address] [place], [place] [id number] PCP - General Family Practice 09/24/20 Vegetable Scullion Relationship Specialty Start Date End Date Betty Bueno MD [address] [place] [id number] PCP - General Family Practice 09/24/20 Vegetable Scullion Relationship Specialty Start Date End Date Betty Bueno MD [address] [place], [place] [phone] PCP - General Family Practice 09/24/20 Vegetable Scullion Relationship Specialty Start Date End Date Betty Bueno MD [address] [place], [place] [phone] PCP - General Family Practice 09/24/20 Vegetable Scullion Relationship Specialty Start Date End Date Betty Bueno MD [address] [place], [place] [id number] PCP - General Family Practice 09/24/20 Vegetable Scullion Relationship Specialty Start Date End Date Betty Bueno MD [address] [place], [place] [id number] PCP - General Family Practice 09/24/20 Vegetable Scullion Relationship Specialty Start Date End Date Betty Bueno MD [address] [place], [place] [id number] PCP - General Family Practice 09/24/20 Vegetable Scullion Relationship Specialty Start Date End Date Betty Bueno MD [address] [place], [place] [phone] PCP - General Family Practice 09/24/20 Vegetable Scullion Relationship Specialty Start Date End Date Betty Bueno MD [address] [place], [place] [phone] PCP - General Family Practice 09/24/20 Vegetable Scullion Relationship Specialty Start Date End Date Betty Bueno MD [address] [place], [place] [id number] PCP - General Family Practice 09/24/20 Vegetable Scullion Relationship Specialty Start Date End Date Betty Bueno MD [address] [place], [place] [id number] PCP - General Family Practice 09/24/20 Vegetable Scullion Relationship Specialty Start Date End Date Betty Bueno MD [address] [place], [place] [phone] PCP - General Family Practice 09/24/20 Vegetable Scullion Relationship Specialty Start Date End Date Betty Bueno MD [address] [place], [place] [id number] PCP - General Family Practice 09/24/20 Vegetable Scullion Relationship Specialty Start Date End Date Betty Bueno MD [address] [place], [place] [phone] PCP - General Family Practice 09/24/20 Vegetable Scullion Relationship Specialty Start Date End Date Betty Bueno MD [address] [place], [place] [phone] PCP - General Family Practice 09/24/20 Vegetable Scullion Relationship Specialty Start Date End Date Betty Bueno MD [address] [place], [place] [phone] PCP - General Family Practice 09/24/20 Vegetable Scullion Relationship Specialty Start Date End Date Betty Bueno MD [address] [place], [place] [phone] PCP - General Family Practice 09/24/20 Vegetable Scullion Relationship Specialty Start Date End Date Betty Bueno MD [address] [place], [place] [phone] PCP - General Family Practice 09/24/20 Vegetable Scullion Relationship Specialty Start Date End Date Betty Bueno MD [address] [place] [place], [place] [phone] PCP - General Family Practice 09/24/20 Vegetable Scullion Relationship Specialty Start Date End Date Betty Bueno MD [address] [place], [place] [phone] PCP - General Family Practice 09/24/20 Vegetable Scullion Relationship Specialty Start Date End Date Betty Bueno MD [address] [place], [place] [phone] PCP - General Family Practice 09/24/20 Vegetable Scullion Relationship Specialty Start Date End Date Betty Bueno MD [address] [place], [place] [phone] PCP - General Family Practice 09/24/20 Vegetable Scullion Relationship Specialty Start Date End Date Betty Bueno MD [address] [place], [place] [phone] PCP - General Family Practice 09/24/20 Vegetable Scullion Relationship Specialty Start Date End Date Betty Bueno MD [address] [place], [place] [phone] PCP - General Family Practice 09/24/20 Vegetable Scullion Relationship Specialty Start Date End Date Betty Bueno MD [address] [place], [place] [id number] PCP - General Family Practice 09/24/20 Vegetable Scullion Relationship Specialty Start Date End Date Betty Bueno MD [address] [place], [place] [phone] PCP - General Family Medicine 09/24/20 Vegetable Scullion Relationship Specialty Start Date End Date Betty Bueno MD [address] [place], [place] [phone] PCP - General Family Medicine 09/24/20 Vegetable Scullion Relationship Specialty Start Date End Date Betty Bueno MD [address] [place], [place] [phone] PCP - General Family Medicine 09/24/20 Vegetable Scullion Relationship Specialty Start Date End Date Betty Bueno MD [address] [place], [place] [id number] PCP - General Family Medicine 09/24/20 Vegetable Scullion Relationship Specialty Start Date End Date Betty Bueno MD [address] [place], [place] [phone] PCP - General Family Medicine 09/24/20 Vegetable Scullion Relationship Specialty Start Date End Date Betty Bueno MD [address] [place], [place] [phone] PCP - General Family Medicine 09/24/20 Vegetable Scullion Relationship Specialty Start Date End Date Betty Bueno MD [address] [place], [place] [phone] PCP - General Family Medicine 09/24/20 Vegetable Scullion Relationship Specialty Start Date End Date Betty Bueno MD [address] [place], [place] [phone] PCP - General Family Medicine 09/24/20 Vegetable Scullion Relationship Specialty Start Date End Date Betty Bueno MD [address] [place], [place] [id number] PCP - General Family Medicine 09/24/20 Vegetable Scullion Relationship Specialty Start Date End Date Betty Bueno MD [address] [place], [place] [phone] PCP - General Family Medicine 09/24/20 Vegetable Scullion Relationship Specialty Start Date End Date Betty Bueno MD [address] [place], [place] [phone] PCP - General Family Medicine 09/24/20 Vegetable Scullion Relationship Specialty Start Date End Date Betty Bueno MD [address] [place], [place] [phone] PCP - General Family Medicine 09/24/20 Vegetable Scullion Relationship Specialty Start Date End Date Betty Bueno MD [address] [place] [place], [place] [id number] PCP - General Family Medicine 09/24/20 Vegetable Scullion Relationship Specialty Start Date End Date Betty Bueno MD [address] [place], [place] [phone] PCP - General Family Medicine 09/24/20 Vegetable Scullion Relationship Specialty Start Date End Date Betty Bueno MD [address] [place], [place] [phone] PCP - General Family Medicine 09/24/20 Vegetable Scullion Relationship Specialty Start Date End Date Betty Bueno MD [address] [place], [place] [phone] PCP - General Family Medicine 09/24/20 Vegetable Scullion Relationship Specialty Start Date End Date Betty Bueno MD [address] [place], [place] [phone] PCP - General Family Medicine 09/24/20 Vegetable Scullion Relationship Specialty Start Date End Date Betty Bueno MD [address] [place], [place] [phone] PCP - General Family Medicine 09/24/20 Vegetable Scullion Relationship Specialty Start Date End Date Betty Bueno MD [address] [place], [place] [phone] PCP - General Family Medicine 09/24/20 Vegetable Scullion Relationship Specialty Start Date End Date Betty Bueno MD [address] [place], [place] [phone] PCP - General Family Medicine 09/24/20 Vegetable Scullion Relationship Specialty Start Date End Date Betty Bueno MD [address] [place], [place] [phone] PCP - General Family Medicine 09/24/20 Vegetable Scullion Relationship Specialty Start Date End Date Betty Bueno MD [address] [place], [place] [phone] PCP - General Family Medicine 09/24/20 Vegetable Scullion Relationship Specialty Start Date End Date Betty Bueno MD [address] [place], [place] [phone] PCP - General Family Medicine 09/24/20 Vegetable Scullion Relationship Specialty Start Date End Date Betty Bueno MD [address] [place], [place] [phone] PCP - General Family Medicine 09/24/20 Vegetable Scullion Relationship Specialty Start Date End Date Betty Bueno MD [address] [place], [place] [id number] PCP - General Family Medicine 09/24/20 Vegetable Scullion Relationship Specialty Start Date End Date Betty Bueno MD [address] [place], [place] [phone] PCP - General Family Medicine 09/24/20 Vegetable Scullion Relationship Specialty Start Date End Date Betty Bueno MD [address] [place], [place] [phone] PCP - General Family Medicine 09/24/20 Vegetable Scullion Relationship Specialty Start Date End Date Betty Bueno MD [address] [place], [place] [phone] PCP - General Family Medicine 09/24/20 Vegetable Scullion Relationship Specialty Start Date End Date Betty Bueno MD [address] [place], [place] [phone] PCP - General Family Medicine 09/24/20 Vegetable Scullion Relationship Specialty Start Date End Date Betty Bueno MD [address] [place] [place], [place] [phone] PCP - General Family Medicine 09/24/20 Vegetable Scullion Relationship Specialty Start Date End Date Betty Bueno MD [address] [place] [address] [place], [place] [id number] PCP - General Family Medicine 09/24/20 Vegetable Scullion Relationship Specialty Start Date End Date Betty Bueno MD [address] [address] [place], [place] [id number] PCP - General Family Medicine 09/24/20 Vegetable Scullion Relationship Specialty Start Date End Date Betty Bueno MD [address] [address] [place], [place] [id number] PCP - General Family Medicine 09/24/20 Vegetable Scullion Relationship Specialty Start Date End Date Betty Bueno MD [address] [address] [place], [place] [id number] PCP - General Family Medicine 09/24/20 Vegetable Scullion Relationship Specialty Start Date End Date Betty Bueno MD [address] [address] [place], [place] [id number] PCP - General Family Medicine 09/24/20 Vegetable Scullion Relationship Specialty Start Date End Date Betty Bueno MD [address] [address] [place], [place] [id number] PCP - General Family Medicine 09/24/20 Vegetable Scullion Relationship Specialty Start Date End Date Betty Bueno MD [address] [address] [place], [place] [id number] PCP - General Family Medicine 09/24/20 Vegetable Scullion Relationship Specialty Start Date End Date Betty Bueno MD [address] [address] [place], [place] [id number] PCP - General Family Medicine 09/24/20 Vegetable Scullion Relationship Specialty Start Date End Date Betty Bueno MD [address] [place] [address] [place], [place] [id number] PCP - General Family Medicine 09/24/20 Vegetable Scullion Relationship Specialty Start Date End Date Betty Bueno MD [address] [place] [address] [place], [place] [id number] PCP - General Family Medicine 09/24/20 Vegetable Scullion Relationship Specialty Start Date End Date Betty Bueno MD [address] [place] [address] [place] [address] PCP - General Family Medicine 09/24/20 Vegetable Scullion Relationship Specialty Start Date End Date Betty Bueno MD [address] [place] [address] [place], [place] [id number] PCP - General Family Medicine 09/24/20 Vegetable Scullion Relationship Specialty Start Date End Date Betty Bueno MD [address] [address] [place], [place] [id number] PCP - General Family Medicine 09/24/20 Vegetable Scullion Relationship Specialty Start Date End Date Betty Bueno MD [address] [address] [place], [place] [id number] PCP - General Family Medicine 09/24/20 Vegetable Scullion Relationship Specialty Start Date End Date Betty Bueno MD [address] [address] [place], [place] [id number] PCP - General Family Medicine 09/24/20 Vegetable Scullion Relationship Specialty Start Date End Date Betty Bueno MD [address] [place] [address] [place], [place] [id number] PCP - General Family Medicine 09/24/20 Vegetable Scullion Relationship Specialty Start Date End Date Betty Bueno MD [address] [address] [place], [place] [phone] PCP - General Family Medicine 09/24/20 Vegetable Scullion Relationship Specialty Start Date End Date Betty Bueno MD [address] [place] [address] [place], [place] [id number] PCP - General Family Medicine 09/24/20 Vegetable Scullion Relationship Specialty Start Date End Date Betty Bueno MD [address] [place] [address] [place], [place] [id number] PCP - General Family Medicine 09/24/20 Vegetable Scullion Relationship Specialty Start Date End Date Betty Bueno MD [address] [address] [place], [place] [id number] PCP - General Family Medicine 09/24/20 Vegetable Scullion Relationship Specialty Start Date End Date Betty Bueno MD [address] [address] [place], [place] [phone] PCP - General Family Medicine 09/24/20 Vegetable Scullion Relationship Specialty Start Date End Date Betty Bueno MD [address] [address] [place], [place] [id number] PCP - General Family Medicine 09/24/20 Vegetable Scullion Relationship Specialty Start Date End Date Betty Bueno MD [address] [address] [place], [place] [id number] PCP - General Family Medicine 09/24/20 Vegetable Scullion Relationship Specialty Start Date End Date Betty Bueno MD [address] [address] [place], [place] [id number] PCP - General Family Medicine 09/24/20 Vegetable Scullion Relationship Specialty Start Date End Date Betty Bueno MD [address] [address] [place], [place] [id number] PCP - General Family Medicine 09/24/20 Vegetable Scullion Relationship Specialty Start Date End Date Betty Bueno MD [address] [address] [place], [place] [id number] PCP - General Family Medicine 09/24/20 Vegetable Scullion Relationship Specialty Start Date End Date Betty Bueno MD [address] [place] [address] [place], [place] [id number] PCP - General Family Medicine 09/24/20 Vegetable Scullion Relationship Specialty Start Date End Date Betty Bueno MD [address] [place] [address] [place], [place] [phone] PCP - General Family Medicine 09/24/20 Vegetable Scullion Relationship Specialty Start Date End Date Betty Bueno MD [address] [address] [place], [place] [id number] PCP - General Family Medicine 09/24/20 Vegetable Scullion Relationship Specialty Start Date End Date Betty Bueno MD [address] [address] [place], [place] [id number] PCP - General Family Medicine 09/24/20 Vegetable Scullion Relationship Specialty Start Date End Date Betty Bueno MD [address] [address] [place], [place] [id number] PCP - General Family Medicine 09/24/20 Vegetable Scullion Relationship Specialty Start Date End Date Betty Bueno MD [address] [address] [place], [place] [id number] PCP - General Family Medicine 09/24/20 Vegetable Scullion Relationship Specialty Start Date End Date Betty Bueno MD [address] [address] [place], [place] [id number] PCP - General Family Medicine 09/24/20 Vegetable Scullion Relationship Specialty Start Date End Date Betty Bueno MD [address] [place] [address] [place], [place] [phone] PCP - General Family Medicine 09/24/20 Vegetable Scullion Relationship Specialty Start Date End Date Betty Bueno MD [address] [place] [address] [place], [place] [id number] PCP - General Family Medicine 09/24/20 Vegetable Scullion Relationship Specialty Start Date End Date Betty Bueno MD [address] [place] [address] [place], [place] [id number] PCP - General Family Medicine 09/24/20 Vegetable Scullion Relationship Specialty Start Date End Date Betty Bueno MD [address] [place] [address] [place], [place] [phone] PCP - General Family Medicine 09/24/20 Vegetable Scullion Relationship Specialty Start Date End Date Betty Bueno MD [address] [place] [address] [place], [place] [phone] PCP - General Family Medicine 09/24/20 Vegetable Scullion Relationship Specialty Start Date End Date Betty Bueno MD [address] [place] [address] [place] [address] PCP - General Family Medicine 09/24/20 Vegetable Scullion Relationship Specialty Start Date End Date Betty Bueno MD [address] [address] [place], [place] [id number] PCP - General Family Medicine 09/24/20 Vegetable Scullion Relationship Specialty Start Date End Date Betty Bueno MD [address] [address] [place], [place] [id number] PCP - General Family Medicine 09/24/20 Vegetable Scullion Relationship Specialty Start Date End Date Betty Bueno MD [address] [address] [place], [place] [phone] PCP - General Family Medicine 09/24/20 Vegetable Scullion Relationship Specialty Start Date End Date Betty Bueno MD [address] [place] [address] [place] [address] PCP - General Family Medicine 09/24/20 Vegetable Scullion Relationship Specialty Start Date End Date Betty Bueno MD [address] [place], [place] [phone] PCP - General Family Medicine 09/24/20 Vegetable Scullion Relationship Specialty Start Date End Date Betty Bueno MD [address] [facility] [place] [place] [id number] PCP - General Family Medicine 09/24/20 Vegetable Scullion Relationship Specialty Start Date End Date Betty Bueno MD [address] [facility] [place], [place] [phone] PCP - General Family Medicine 09/24/20 FOR RECORDS PERTAINING TO PATIENTS WHO ARE OR HAVE BEEN ENROLLED IN A CHEMICAL DEPENDENCY/SUBSTANCEABUSE PROGRAM, SOME INFORMATION MAY BE OMITTED. This clinical summary was aggregated from multiple sources. Caution should be exercised in using it in the provision of clinical care. This summary normalizes information from multiple sources, and as a consequence, information in this document may materially change the coding, format and clinical context of patient data. In addition, data may be omitted in some cases. CLINICAL DECISIONS SHOULD BE BASED ON THE PRIMARY CLINICAL RECORDS. [facility]. provides no warranty or guarantee of the accuracy or completeness of information in this document.
== END 2025-03-26 20:09 | disposition home or self-care (01) ==
LOC: ED 20:07
PROVIDERS: Emergency Provider Emergency Medicine; Visit Provider Emergency Medicine
DX: G24.5 Blepharospasm (principal); E11.51 Type 2 diabetes mellitus with diabetic peripheral angiopathy without gangrene; E11.40 Type 2 diabetes mellitus with diabetic neuropathy, unspecified; I10 Essential (primary) hypertension; E78.5 Hyperlipidemia, unspecified; G89.29 Other chronic pain; M54.9 Dorsalgia, unspecified; M19.90 Unspecified osteoarthritis, unspecified site; J45.909 Unspecified asthma, uncomplicated; Z86.73 Personal history of transient ischemic attack (TIA), and cerebral infarction without residual deficits; Z79.51 Long term (current) use of inhaled steroids; Z86.718 Personal history of other venous thrombosis and embolism; Z79.899 Other long term (current) drug therapy
CPT/HCPCS: 99282